=== PATIENT | female | born 1940 | race Caucasian/White ===

== ENCOUNTER 2020-07-23 09:33 | Outpatient (REF) | payer MEDICARE, OTHER, SELFPAY ==
[2020-07-23 10:14] LABS: MANUAL DIFF FLAG NO
[2020-07-23 10:15] LABS: Basophils Percent Auto 0.3 % (0-2); Eosinophils Absolute Auto 0.1 X10*3/uL (0.0-0.4); Eosinophils Percent Auto 2.2 % (0-4); Hematocrit 32.1 % (37-47); Hemoglobin 10.4 g/dl (12.0-16.0); Imm Gran Abs Auto 0.02 X10*3/uL (0.00-0.03); Imm Gran Pct Auto 0.3 % (0.0-0.4); Lymphocytes Absolute Auto 0.9 X10*3/uL (1.2-4.9); Lymphocytes Percent Auto 14.3 % (20-40); Mean Corpuscular HGB Conc 32.4 g/dl (31.0-35.0); Mean Corpuscular Hemoglobin 29.8 pg (27.0-33.0); Mean Platelet Volume 8.6 fL (9.4-12.3); Monocytes Absolute Auto 0.6 X10*3/uL (0.1-1.2); Monocytes Percent Auto 9.8 % (2-11); Neutrophils Absolute Auto 4.4 X10*3/uL (2.0-8.3); Neutrophils Percent Auto 73.1 % (45-73); Platelet Count 319 X10*3/uL (160-400); Red Blood Count 3.49 X10*6/uL (4.20-5.50); Red Cell Distribution Width 13.6 % (11.0-16.0)
[2020-07-23 10:48] LABS: Alanine Aminotransferase 12 U/L (0-31); Albumin Level 3.9 g/dL (3.5-5.0); Alkaline Phosphatase 64 U/L (39-117); Anion Gap 14 (12-20); Aspartate Amino Transferase 13 U/L (5-31); Bilirubin Total 0.7 mg/dL (0.0-1.0); Blood Urea Nitrogen 19 mg/dL (9-16); Calcium 8.6 mg/dL (8.4-10.2); Carbon Dioxide 23 mmol/L (22-29); Chloride 107 mmol/L (96-108); Cholesterol 102 mg/dL; Estimated Glomerular Filt Rate 59; Glucose Fasting 112 mg/dL (60-99); HDL Cholesterol 36 mg/dL; LDL Cholesterol Calculated 52 mg/dl; Potassium 4.9 mmol/l (3.3-5.1); Sodium 139 mmol/L (135-145); Total Protein 6.1 g/dL (6.5-8.0); Triglycerides 73 mg/dL
[2020-07-23 10:51] LABS: Glucose Urine UA NEG (NEG); Leukocyte Esterase Urine TRACE (NEG); Nitrite Urine NEG (NEG); PH 5.5 (5.0-8.0); Urine Blood NEG (NEG); Urine Ketones NEG (NEG); Urine Protein NEG (NEG-TRACE)
[2020-07-23 10:56] LABS: Appearance Urine CLEAR; Color Urine YELLOW
[2020-07-23 11:07] LABS: Folate 13.8 ng/mL (> or = 4.0); Vitamin B12 1368 pg/mL (200-900)
[2020-07-23 11:08] LABS: RBC Urine 0 /HPF (0); Renal Epithelial Cells Urine TRACE /LPF; Squamous Epithelial Cell Urine TRACE /LPF
[2020-07-23 11:17] LABS: Creatinine Urine 53.94 mg/dL; Microalbum/Creatinine Ratio Ur 9.2 ug/mg cr
== END 2020-07-23 09:34 | disposition home or self-care (01) ==
LOC: HO.10HDL 09:33
PROVIDERS: Visit Provider Internal Medicine
DX: E11.22 Type 2 diabetes mellitus with diabetic chronic kidney disease (principal); E11.42 Type 2 diabetes mellitus with diabetic polyneuropathy; I12.9 Hypertensive chronic kidney disease with stage 1 through stage 4 chronic kidney disease, or unspecified chronic kidney disease; E78.5 Hyperlipidemia, unspecified; N18.2 Chronic kidney disease, stage 2 (mild); D63.1 Anemia in chronic kidney disease; E87.6 Hypokalemia; I25.10 Atherosclerotic heart disease of native coronary artery without angina pectoris; I65.29 Occlusion and stenosis of unspecified carotid artery; E55.9 Vitamin D deficiency, unspecified; K21.9 Gastro-esophageal reflux disease without esophagitis; E66.3 Overweight
CPT/HCPCS: 36415; 80053; 80061; 81001; 82043; 82607; 82746; 85025; 87086

== ENCOUNTER 2020-10-19 09:23 | Outpatient (REF) | payer MEDICARE, OTHER, SELFPAY ==
[2020-10-19 10:03] LABS: MANUAL DIFF FLAG NO
[2020-10-19 10:12] LABS: Basophils Percent Auto 0.6 % (0-2); Eosinophils Absolute Auto 0.2 X10*3/uL (0.0-0.4); Eosinophils Percent Auto 2.4 % (0-4); Hemoglobin 11.4 g/dl (12.0-16.0); Imm Gran Abs Auto 0.01 X10*3/uL (0.00-0.03); Imm Gran Pct Auto 0.1 % (0.0-0.4); Lymphocytes Absolute Auto 0.8 X10*3/uL (1.2-4.9); Lymphocytes Percent Auto 11.8 % (20-40); Mean Corpuscular HGB Conc 31.7 g/dl (31.0-35.0); Mean Corpuscular Hemoglobin 28.6 pg (27.0-33.0); Mean Corpuscular Volume 90.2 fL (80-98); Mean Platelet Volume 8.7 fL (9.4-12.3); Monocytes Absolute Auto 0.7 X10*3/uL (0.1-1.2); Monocytes Percent Auto 9.2 % (2-11); Neutrophils Absolute Auto 5.4 X10*3/uL (2.0-8.3); Neutrophils Percent Auto 75.9 % (45-73); Platelet Count 352 X10*3/uL (160-400); Red Blood Count 3.99 X10*6/uL (4.20-5.50); Red Cell Distribution Width 13.3 % (11.0-16.0); White Blood Count 7.1 X10*3/uL (4.8-10.8)
[2020-10-19 10:29] LABS: Glucose Urine UA NEG (NEG); Leukocyte Esterase Urine 2+ (NEG); Nitrite Urine NEG (NEG); Specific Gravity - Urine 1.025 (1.005-1.025); UACC Culture Trigger YES; Urine Blood NEG (NEG); Urine Ketones NEG (NEG); Urine Protein NEG (NEG-TRACE)
[2020-10-19 10:31] LABS: Appearance Urine CLEAR; Color Urine YELLOW
[2020-10-19 10:35] LABS: Estimated Average Glucose 140 mg/dL; Hemoglobin A1c % 6.5 %
[2020-10-19 10:38] LABS: Alanine Aminotransferase 11 U/L (0-31); Alkaline Phosphatase 79 U/L (39-117); Anion Gap 14 (12-20); Aspartate Amino Transferase 12 U/L (5-31); Bilirubin Total 0.6 mg/dL (0.0-1.0); Blood Urea Nitrogen 21 mg/dL (9-16); Calcium 8.9 mg/dL (8.4-10.2); Carbon Dioxide 26 mmol/L (22-29); Chloride 104 mmol/L (96-108); Cholesterol 120 mg/dL; Estimated Glomerular Filt Rate 54; Glucose Fasting 204 mg/dL (60-99); HDL Cholesterol 37 mg/dL; Iron 79 mcg/dL (30-160); LDL Cholesterol Calculated 69 mg/dl; Percent Iron Saturation 19 % (15-50); Potassium 4.7 mmol/L (3.3-5.1); Sodium 139 mmol/L (135-145); Total Iron Binding Capacity 413 mcg/dL (228-428); Total Protein 6.3 g/dL (6.5-8.0); Triglycerides 73 mg/dL; Unsaturated Iron Binding 334 ug/dL
[2020-10-19 10:55] LABS: Bacteria Urine TRACE /LPF; RBC Urine 0 /HPF (0); Squamous Epithelial Cell Urine 1+ /LPF
[2020-10-19 11:09] LABS: TSH reflex Free T4 2.36 uIU/mL (0.32-4.0); Vitamin D 25-OH Total 17.8 ng/mL (>30)
[2020-10-19 11:38] LABS: Folate 11.2 ng/mL (> or = 4.0); Vitamin B12 797 pg/mL (200-900)
== END 2020-10-19 09:24 | disposition home or self-care (01) ==
LOC: HO.10HDL 09:23
PROVIDERS: Visit Provider Internal Medicine
DX: E11.42 Type 2 diabetes mellitus with diabetic polyneuropathy (principal); I65.29 Occlusion and stenosis of unspecified carotid artery; I25.10 Atherosclerotic heart disease of native coronary artery without angina pectoris; I12.9 Hypertensive chronic kidney disease with stage 1 through stage 4 chronic kidney disease, or unspecified chronic kidney disease; N18.2 Chronic kidney disease, stage 2 (mild); E55.9 Vitamin D deficiency, unspecified; E66.3 Overweight; E78.00 Pure hypercholesterolemia, unspecified; K21.9 Gastro-esophageal reflux disease without esophagitis; E87.5 Hyperkalemia; D64.9 Anemia, unspecified; G57.11 Meralgia paresthetica, right lower limb
CPT/HCPCS: 36415; 80053; 80061; 81001; 81003; 82306; 82607; 82746; 83036; 83540; 84443; 85025; 87086

== ENCOUNTER 2021-01-25 08:19 | Outpatient (REF) | payer MEDICARE, OTHER, SELFPAY ==
[2021-01-25 09:35] LABS: MANUAL DIFF FLAG NO
[2021-01-25 09:48] LABS: Glucose Urine UA NEG (NEG); Leukocyte Esterase Urine 2+ (NEG); Nitrite Urine POS (NEG); PH 5.5 (5.0-8.0); Specific Gravity - Urine >= 1.030 (1.005-1.025); UACC Culture Trigger YES; Urine Blood NEG (NEG); Urine Ketones 5 MG/DL (NEG); Urine Protein 1+ MG/DL (NEG-TRACE)
[2021-01-25 09:49] LABS: Color Urine YELLOW
[2021-01-25 09:50] LABS: Appearance Urine CLOUDY
[2021-01-25 09:51] LABS: Basophils Percent Auto 0.4 % (0-2); Eosinophils Absolute Auto 0.2 X10*3/uL (0.0-0.4); Eosinophils Percent Auto 2.6 % (0-4); Hematocrit 35.2 % (37-47); Hemoglobin 11.2 g/dl (12.0-16.0); Imm Gran Abs Auto 0.03 X10*3/uL (0.00-0.03); Imm Gran Pct Auto 0.4 % (0.0-0.4); Lymphocytes Absolute Auto 0.8 X10*3/uL (1.2-4.9); Lymphocytes Percent Auto 10.9 % (20-40); Mean Corpuscular HGB Conc 31.8 g/dl (31.0-35.0); Mean Corpuscular Hemoglobin 29.2 pg (27.0-33.0); Mean Corpuscular Volume 91.9 fL (80-98); Mean Platelet Volume 8.8 fL (9.4-12.3); Monocytes Absolute Auto 0.7 X10*3/uL (0.1-1.2); Monocytes Percent Auto 8.7 % (2-11); Neutrophils Absolute Auto 5.9 X10*3/uL (2.0-8.3); Platelet Count 346 X10*3/uL (160-400); Red Blood Count 3.83 X10*6/uL (4.20-5.50); Red Cell Distribution Width 13.7 % (11.0-16.0); White Blood Count 7.7 X10*3/uL (4.8-10.8)
[2021-01-25 09:53] LABS: Estimated Average Glucose 134 mg/dL; Hemoglobin A1c % 6.3 %
[2021-01-25 10:00] LABS: Alanine Aminotransferase 11 U/L (0-31); Anion Gap 14 (12-20); Aspartate Amino Transferase 15 U/L (5-31); Bilirubin Total 0.8 mg/dL (0.0-1.0); Blood Urea Nitrogen 20 mg/dL (9-16); Calcium 9.3 mg/dL (8.4-10.2); Carbon Dioxide 24 mmol/L (22-29); Chloride 107 mmol/L (96-108); Cholesterol 111 mg/dL; Estimated Glomerular Filt Rate 54; Glucose Fasting 117 mg/dL (60-99); HDL Cholesterol 35 mg/dL; LDL Cholesterol Calculated 54 mg/dl; Potassium 5.1 mmol/L (3.3-5.1); Sodium 140 mmol/L (135-145); Total Protein 6.1 g/dL (6.5-8.0); Triglycerides 112 mg/dL
[2021-01-25 10:01] LABS: Alkaline Phosphatase 70 U/L (39-117)
[2021-01-25 10:07] LABS: Creatinine Urine 345.06 mg/dL; Microalbum/Creatinine Ratio Ur 10.7 ug/mg cr
[2021-01-25 10:08] LABS: Bacteria Urine 3+ /LPF; RBC Urine 0-2 /HPF (0); Squamous Epithelial Cell Urine 1+ /LPF; WBC Clumps Urine NOTED; WBC Urine 30-49 /HPF (0-4)
[2021-01-25 10:22] LABS: TSH reflex Free T4 2.17 uIU/mL (0.32-4.0); Vitamin D 25-OH Total 18.2 ng/mL (>30)
[2021-01-25 10:32] LABS: Folate 12.1 ng/mL (> or = 4.0); Vitamin B12 1438 pg/mL (200-900)
== END 2021-01-25 08:20 | disposition home or self-care (01) ==
LOC: HO.LAB 08:19
PROVIDERS: PCP Internal Medicine; Visit Provider Internal Medicine
DX: E78.00 Pure hypercholesterolemia, unspecified (principal); I25.10 Atherosclerotic heart disease of native coronary artery without angina pectoris; I65.22 Occlusion and stenosis of left carotid artery; E11.42 Type 2 diabetes mellitus with diabetic polyneuropathy; I12.9 Hypertensive chronic kidney disease with stage 1 through stage 4 chronic kidney disease, or unspecified chronic kidney disease; N18.2 Chronic kidney disease, stage 2 (mild); E11.22 Type 2 diabetes mellitus with diabetic chronic kidney disease; E55.9 Vitamin D deficiency, unspecified; D64.9 Anemia, unspecified; J30.9 Allergic rhinitis, unspecified; E87.5 Hyperkalemia; G57.11 Meralgia paresthetica, right lower limb; E66.3 Overweight
CPT/HCPCS: 36415; 80053; 80061; 81001; 81003; 82043; 82306; 82607; 82746; 83036; 84443; 85025; 87086

== ENCOUNTER 2021-04-28 08:44 | Outpatient (REF) | payer MEDICARE, OTHER, SELFPAY ==
[2021-04-28 10:18] LABS: MANUAL DIFF FLAG NO
[2021-04-28 10:21] LABS: Basophils Percent Auto 0.4 % (0-2); Eosinophils Absolute Auto 0.2 X10*3/uL (0.0-0.4); Eosinophils Percent Auto 2.8 % (0-4); Hematocrit 33.8 % (37-47); Hemoglobin 10.9 g/dl (12.0-16.0); Imm Gran Abs Auto 0.03 X10*3/uL (0.00-0.03); Imm Gran Pct Auto 0.4 % (0.0-0.4); Mean Corpuscular HGB Conc 32.2 g/dl (31.0-35.0); Mean Corpuscular Hemoglobin 29.9 pg (27.0-33.0); Mean Corpuscular Volume 92.9 fL (80-98); Mean Platelet Volume 8.8 fL (9.4-12.3); Monocytes Absolute Auto 0.7 X10*3/uL (0.1-1.2); Neutrophils Percent Auto 75.4 % (45-73); Platelet Count 333 X10*3/uL (160-400); Red Blood Count 3.64 X10*6/uL (4.20-5.50); Red Cell Distribution Width 14.1 % (11.0-16.0); White Blood Count 7.9 X10*3/uL (4.8-10.8)
[2021-04-28 10:49] LABS: Anion Gap 15 (12-20)
[2021-04-28 10:50] LABS: Alanine Aminotransferase 8 U/L (0-31); Albumin Level 3.8 g/dL (3.5-5.0); Alkaline Phosphatase 65 U/L (39-117); Aspartate Amino Transferase 13 U/L (5-31); Bilirubin Total 0.6 mg/dL (0.0-1.0); Blood Urea Nitrogen 15 mg/dL (9-16); Carbon Dioxide 24 mmol/L (22-29); Chloride 107 mmol/L (96-108); Cholesterol 98 mg/dL; Estimated Glomerular Filt Rate 57; Glucose Fasting 119 mg/dL (60-99); HDL Cholesterol 31 mg/dL; LDL Cholesterol Calculated 45 mg/dl; Potassium 4.7 mmol/L (3.3-5.1); Sodium 141 mmol/L (135-145); Total Protein 5.8 g/dL (6.5-8.0); Triglycerides 113 mg/dL
[2021-04-28 10:51] LABS: Appearance Urine CLOUDY; Color Urine YELLOW; Glucose Urine UA NEG (NEG); Leukocyte Esterase Urine 3+ (NEG); Nitrite Urine POS (NEG); Specific Gravity - Urine 1.015 (1.005-1.025); UACC Culture Trigger YES; Urine Blood 1+ (NEG); Urine Ketones NEG (NEG); Urine Protein TRACE MG/DL (NEG-TRACE)
[2021-04-28 11:05] LABS: Bacteria Urine 3+ /LPF; Mucus Urine TRACE /LPF; Squamous Epithelial Cell Urine TRACE /LPF; WBC Urine TNTC /HPF (0-4)
[2021-04-28 11:08] LABS: Estimated Average Glucose 128 mg/dL; Hemoglobin A1c % 6.1 %
[2021-04-28 11:09] LABS: TSH reflex Free T4 2.33 uIU/mL (0.32-4.0)
[2021-04-28 11:51] LABS: Creatinine Urine 74.51 mg/dL; Microalbum/Creatinine Ratio Ur 99.3 ug/mg cr
== END 2021-04-28 08:45 | disposition home or self-care (01) ==
LOC: HO.10HDL 08:44
PROVIDERS: Visit Provider Internal Medicine
DX: I25.10 Atherosclerotic heart disease of native coronary artery without angina pectoris (principal); K21.9 Gastro-esophageal reflux disease without esophagitis; I65.22 Occlusion and stenosis of left carotid artery; I12.9 Hypertensive chronic kidney disease with stage 1 through stage 4 chronic kidney disease, or unspecified chronic kidney disease; E11.22 Type 2 diabetes mellitus with diabetic chronic kidney disease; E11.42 Type 2 diabetes mellitus with diabetic polyneuropathy; N18.2 Chronic kidney disease, stage 2 (mild); E55.9 Vitamin D deficiency, unspecified; E66.3 Overweight; E78.00 Pure hypercholesterolemia, unspecified
CPT/HCPCS: 36415; 80053; 80061; 81001; 82043; 82306; 83036; 84443; 85025; 87086; 87088; 87186

== ENCOUNTER 2021-05-13 08:20 | Outpatient (REF) | payer MEDICARE, OTHER, SELFPAY ==
[2021-05-13 10:23] LABS: MANUAL DIFF FLAG NO
[2021-05-13 10:28] LABS: Basophils Percent Auto 0.4 % (0-2); Eosinophils Absolute Auto 0.2 X10*3/uL (0.0-0.4); Eosinophils Percent Auto 3.3 % (0-4); Hematocrit 33.8 % (37-47); Hemoglobin 10.8 g/dl (12.0-16.0); Imm Gran Abs Auto 0.02 X10*3/uL (0.00-0.03); Imm Gran Pct Auto 0.3 % (0.0-0.4); Lymphocytes Percent Auto 14.8 % (20-40); Mean Corpuscular Hemoglobin 29.4 pg (27.0-33.0); Mean Corpuscular Volume 92.1 fL (80-98); Mean Platelet Volume 8.7 fL (9.4-12.3); Monocytes Absolute Auto 0.7 X10*3/uL (0.1-1.2); Monocytes Percent Auto 10.4 % (2-11); Neutrophils Absolute Auto 4.8 X10*3/uL (2.0-8.3); Neutrophils Percent Auto 70.8 % (45-73); Platelet Count 343 X10*3/uL (160-400); Red Blood Count 3.67 X10*6/uL (4.20-5.50); Red Cell Distribution Width 13.4 % (11.0-16.0); White Blood Count 6.7 X10*3/uL (4.8-10.8)
[2021-05-13 10:34] LABS: INTERNATIONAL NORM RATIO 0.9 (0.9-1.1); Prothrombin Time 10.6 SEC (9.9-13.0)
[2021-05-13 11:09] LABS: Anion Gap 14 (12-20); Blood Urea Nitrogen 20 mg/dL (9-16); Calcium 9.3 mg/dL (8.4-10.2); Carbon Dioxide 20 mmol/L (22-29); Chloride 104 mmol/L (96-108); Cholesterol 96 mg/dL; Estimated Glomerular Filt Rate 39; Glucose Random 138 mg/dL (60-115); HDL Cholesterol 32 mg/dL; LDL Cholesterol Calculated 45 mg/dl; Potassium 6.1 mmol/L (3.3-5.1); Sodium 132 mmol/L (135-145); Triglycerides 98 mg/dL
[2021-05-13 14:00] LABS: Anion Gap 14 (12-20); Blood Urea Nitrogen 19 mg/dL (9-16); Calcium 9.4 mg/dL (8.4-10.2); Carbon Dioxide 21 mmol/L (22-29); Chloride 105 mmol/L (96-108); Estimated Glomerular Filt Rate 42; Glucose Random 113 mg/dL (60-115); Potassium 6.6 mmol/L (3.3-5.1); Sodium 133 mmol/L (135-145)
== END 2021-05-13 08:21 | disposition home or self-care (01) ==
LOC: HO.10HDL 08:20
PROVIDERS: Visit Provider Internal Medicine Cardiovascular Disease
DX: I25.119 Atherosclerotic heart disease of native coronary artery with unspecified angina pectoris (principal); I73.9 Peripheral vascular disease, unspecified; R06.02 Shortness of breath
CPT/HCPCS: 36415; 80048; 80061; 85025; 85610

== ENCOUNTER 2021-09-14 08:26 | Outpatient (REF) | payer MEDICARE, OTHER, SELFPAY ==
[2021-09-14 10:43] LABS: MANUAL DIFF FLAG NO
[2021-09-14 10:49] LABS: Basophils Percent Auto 0.6 % (0-2); Eosinophils Absolute Auto 0.2 X10*3/uL (0.0-0.4); Hematocrit 32.9 % (37.0-47.0); Imm Gran Abs Auto 0.01 X10*3/uL (0.00-0.03); Imm Gran Pct Auto 0.1 % (0.0-0.4); Lymphocytes Percent Auto 13.5 % (20-40); Mean Corpuscular HGB Conc 30.4 g/dl (31.0-35.0); Mean Corpuscular Hemoglobin 27.3 pg (27.0-33.0); Mean Corpuscular Volume 89.9 fL (80.0-98.0); Mean Platelet Volume 8.5 fL (9.4-12.3); Monocytes Absolute Auto 0.8 X10*3/uL (0.1-1.2); Monocytes Percent Auto 11.4 % (2-11); Neutrophils Absolute Auto 5.1 x10*3/uL (2.0-8.3); Neutrophils Percent Auto 71.4 % (45-73); Platelet Count 416 X10*3/uL (160-400); Red Blood Count 3.66 X10*6/uL (4.20-5.50); Red Cell Distribution Width 13.5 % (11.0-16.0); White Blood Count 7.1 X10*3/uL (4.8-10.8)
[2021-09-14 10:58] LABS: Appearance Urine HAZY; Color Urine YELLOW; Glucose Urine UA NEG (NEG); Leukocyte Esterase Urine 2+ (NEG); Nitrite Urine NEG (NEG); Specific Gravity - Urine >= 1.030 (1.005-1.025); UACC Culture Trigger YES; Urine Blood NEG (NEG); Urine Ketones NEG (NEG); Urine Protein NEG (NEG-TRACE)
[2021-09-14 11:00] LABS: Estimated Average Glucose 103 mg/dL; Hemoglobin A1c % 5.2 %
[2021-09-14 11:19] LABS: Bacteria Urine 2+ /LPF; RBC Urine 0 /HPF (0); Squamous Epithelial Cell Urine 2+ /LPF
[2021-09-14 11:20] LABS: Mucus Urine 1+ /LPF
[2021-09-14 11:50] LABS: Alanine Aminotransferase 11 U/L (0-31); Albumin Level 3.7 g/dL (3.5-5.0); Alkaline Phosphatase 69 U/L (39-117); Anion Gap 13 (12-20); Aspartate Amino Transferase 15 U/L (5-31); Bilirubin Total 0.3 mg/dL (0.0-1.0); Blood Urea Nitrogen 13 mg/dL (9-16); Calcium 8.8 mg/dL (8.4-10.2); Carbon Dioxide 26 mmol/L (22-29); Chloride 107 mmol/L (96-108); Cholesterol 105 mg/dL; Estimated Glomerular Filt Rate > 60; Glucose Fasting 128 mg/dL (60-99); HDL Cholesterol 33 mg/dL; LDL Cholesterol Calculated 51 mg/dl; Sodium 142 mmol/L (135-145); Total Protein 5.9 g/dL (6.5-8.0); Triglycerides 108 mg/dL
[2021-09-14 11:53] LABS: TSH reflex Free T4 2.85 uIU/mL (0.32-4.0)
[2021-09-14 12:47] LABS: Creatinine Urine 61.72 mg/dL; Microalbum/Creatinine Ratio Ur 38.8 ug/mg cr
== END 2021-09-14 08:27 | disposition home or self-care (01) ==
LOC: HO.10HDL 08:26
PROVIDERS: Visit Provider Internal Medicine
DX: I10 Essential (primary) hypertension (principal); E78.00 Pure hypercholesterolemia, unspecified; E11.9 Type 2 diabetes mellitus without complications; E55.9 Vitamin D deficiency, unspecified; D64.9 Anemia, unspecified
CPT/HCPCS: 36415; 80053; 80061; 81001; 82043; 82306; 83036; 84443; 85025; 87086; 87088; 87186

== ENCOUNTER 2021-10-14 11:48 | Outpatient (REF) | payer MEDICARE, OTHER, SELFPAY | END 2021-10-14 11:49 | disposition home or self-care (01) | LOC: HO.MDS 11:48 | PROVIDERS: Visit Provider Internal Medicine Medical Oncology | DX: D50.9 Iron deficiency anemia, unspecified (principal) | CPT/HCPCS: 96365; J2916 ==

== ENCOUNTER 2021-10-26 11:43 | Outpatient (REF) | payer MEDICARE, OTHER, SELFPAY | END 2021-10-26 11:44 | disposition home or self-care (01) | LOC: HO.MDS 11:43 | PROVIDERS: Visit Provider Internal Medicine Medical Oncology | DX: D50.9 Iron deficiency anemia, unspecified (principal) | CPT/HCPCS: 96365; J2916 ==

== ENCOUNTER 2021-11-04 11:02 | Outpatient (REF) | payer MEDICARE, OTHER, SELFPAY | END 2021-11-04 11:03 | disposition home or self-care (01) | LOC: HO.MDS 11:02 | PROVIDERS: Visit Provider Internal Medicine Medical Oncology | DX: D50.9 Iron deficiency anemia, unspecified (principal) | CPT/HCPCS: 96365; J2916 ==

== ENCOUNTER 2021-11-10 10:28 | Outpatient (REF) | payer MEDICARE, OTHER, SELFPAY ==
[2021-11-10 11:01] LABS: MANUAL DIFF FLAG NO
[2021-11-10 11:06] LABS: Basophils Percent Auto 0.4 % (0-2); Eosinophils Absolute Auto 0.2 X10*3/uL (0.0-0.4); Eosinophils Percent Auto 2.2 % (0-4); Hematocrit 34.8 % (37.0-47.0); Hemoglobin 10.6 g/dl (12.0-16.0); Imm Gran Abs Auto 0.02 X10*3/uL (0.00-0.03); Imm Gran Pct Auto 0.3 % (0.0-0.4); Lymphocytes Absolute Auto 0.8 X10*3/uL (1.2-4.9); Lymphocytes Percent Auto 10.7 % (20-40); Mean Corpuscular HGB Conc 30.5 g/dl (31.0-35.0); Mean Corpuscular Hemoglobin 27.3 pg (27.0-33.0); Mean Corpuscular Volume 89.7 fL (80.0-98.0); Mean Platelet Volume 8.5 fL (9.4-12.3); Monocytes Absolute Auto 0.7 X10*3/uL (0.1-1.2); Monocytes Percent Auto 9.6 % (2-11); Neutrophils Absolute Auto 5.6 x10*3/uL (2.0-8.3); Neutrophils Percent Auto 76.8 % (45-73); Platelet Count 291 X10*3/uL (160-400); Red Blood Count 3.88 X10*6/uL (4.20-5.50); Red Cell Distribution Width 16.4 % (11.0-16.0); White Blood Count 7.3 X10*3/uL (4.8-10.8)
== END 2021-11-10 10:29 | disposition home or self-care (01) ==
LOC: HO.MDS 10:28
PROVIDERS: Visit Provider Internal Medicine Medical Oncology
DX: D50.9 Iron deficiency anemia, unspecified (principal)
CPT/HCPCS: 36415; 85025; 96365; J2916

== ENCOUNTER 2021-11-17 11:49 | Outpatient (REF) | payer MEDICARE, OTHER, SELFPAY | END 2021-11-17 11:50 | disposition home or self-care (01) | LOC: HO.MDS 11:49 | PROVIDERS: Visit Provider Internal Medicine Medical Oncology | DX: D50.9 Iron deficiency anemia, unspecified (principal) | CPT/HCPCS: 96365; 96413; 96415; J2916 ==

== ENCOUNTER 2021-11-24 09:53 | Outpatient (REF) | payer MEDICARE, OTHER, SELFPAY | END 2021-11-24 09:54 | disposition home or self-care (01) | LOC: HO.MDS 09:53 | PROVIDERS: Visit Provider Internal Medicine Medical Oncology | DX: D50.9 Iron deficiency anemia, unspecified (principal) | CPT/HCPCS: 96365; J2916 ==

== ENCOUNTER 2021-12-19 07:46 | Outpatient (REF) | payer MEDICARE, OTHER, SELFPAY ==
[2021-12-19 10:17] LABS: MANUAL DIFF FLAG NO
[2021-12-19 10:29] LABS: Basophils Percent Auto 0.8 % (0-2); Eosinophils Absolute Auto 0.2 X10*3/uL (0.0-0.4); Eosinophils Percent Auto 4.3 % (0-4); Hematocrit 31.1 % (37.0-47.0); Hemoglobin 9.6 g/dl (12.0-16.0); Imm Gran Abs Auto 0.01 X10*3/uL (0.00-0.03); Imm Gran Pct Auto 0.2 % (0.0-0.4); Lymphocytes Absolute Auto 0.8 X10*3/uL (1.2-4.9); Lymphocytes Percent Auto 16.5 % (20-40); Mean Corpuscular HGB Conc 30.9 g/dl (31.0-35.0); Mean Corpuscular Hemoglobin 29.1 pg (27.0-33.0); Mean Corpuscular Volume 94.2 fL (80.0-98.0); Mean Platelet Volume 8.7 fL (9.4-12.3); Monocytes Absolute Auto 0.5 X10*3/uL (0.1-1.2); Monocytes Percent Auto 9.7 % (2-11); Neutrophils Absolute Auto 3.3 x10*3/uL (2.0-8.3); Neutrophils Percent Auto 68.5 % (45-73); Platelet Count 374 X10*3/uL (160-400); Red Cell Distribution Width 16.6 % (11.0-16.0); White Blood Count 4.8 X10*3/uL (4.8-10.8)
[2021-12-19 10:40] LABS: Estimated Average Glucose 108 mg/dL; Hemoglobin A1c % 5.4 %
[2021-12-19 11:01] LABS: Appearance Urine CLEAR; Color Urine YELLOW; Glucose Urine UA NEG (NEG); Leukocyte Esterase Urine 3+ (NEG); Nitrite Urine NEG (NEG); Specific Gravity - Urine 1.015 (1.005-1.025); UACC Culture Trigger YES; Urine Blood NEG (NEG); Urine Ketones NEG (NEG); Urine Protein NEG (NEG-TRACE)
[2021-12-19 11:06] LABS: Alanine Aminotransferase 9 U/L (0-31); Albumin Level 3.5 g/dL (3.5-5.0); Alkaline Phosphatase 73 U/L (39-117); Anion Gap 12 (12-20); Aspartate Amino Transferase 12 U/L (5-31); Bilirubin Total 0.4 mg/dL (0.0-1.0); Blood Urea Nitrogen 16 mg/dL (9-16); Calcium 8.7 mg/dL (8.4-10.2); Carbon Dioxide 26 mmol/L (22-29); Chloride 107 mmol/L (96-108); Cholesterol 138 mg/dL; Estimated Glomerular Filt Rate > 60; Glucose Fasting 109 mg/dL (60-99); HDL Cholesterol 38 mg/dL; Iron 57 mcg/dL (30-160); LDL Cholesterol Calculated 86 mg/dl; Percent Iron Saturation 20 % (15-50); Potassium 4.7 mmol/L (3.3-5.1); Sodium 140 mmol/L (135-145); Total Iron Binding Capacity 281 mcg/dL (228-428); Total Protein 5.5 g/dL (6.5-8.0); Triglycerides 71 mg/dL; Unsaturated Iron Binding 224 ug/dL
[2021-12-19 11:09] LABS: TSH reflex Free T4 3.14 uIU/mL (0.32-4.0); Vitamin D 25-OH Total 14.2 ng/mL (>30)
[2021-12-19 11:10] LABS: Creatinine Urine 67.41 mg/dL; Microalbum/Creatinine Ratio Ur 23.7 ug/mg cr
[2021-12-19 11:26] LABS: Squamous Epithelial Cell Urine 2+ /LPF
[2021-12-19 11:27] LABS: Bacteria Urine 1+ /LPF; Renal Epithelial Cells Urine TRACE /LPF
[2021-12-19 11:28] LABS: RBC Urine 0 /HPF (0)
[2021-12-19 11:45] LABS: Folate 6.6 ng/mL (> or = 4.0); Vitamin B12 1264 pg/mL (200-900)
== END 2021-12-19 07:47 | disposition home or self-care (01) ==
LOC: HO.10HDL 07:46
PROVIDERS: Visit Provider Internal Medicine
DX: E55.9 Vitamin D deficiency, unspecified (principal); E53.8 Deficiency of other specified B group vitamins; E11.9 Type 2 diabetes mellitus without complications; I10 Essential (primary) hypertension; D50.9 Iron deficiency anemia, unspecified; E78.00 Pure hypercholesterolemia, unspecified
CPT/HCPCS: 36415; 80053; 80061; 81001; 81003; 82043; 82306; 82607; 82746; 83036; 83540; 84443; 85025; 87086

== ENCOUNTER → 2022-01-11 12:00 | Outpatient (BNVA) | payer MEDICARE, OTHER, SELFPAY | PROVIDERS: PCP Internal Medicine; Visit Provider Nurse Practitioner Family | DX: D64.9 Anemia, unspecified (principal); K21.9 Gastro-esophageal reflux disease without esophagitis; Z95.1 Presence of aortocoronary bypass graft; Z79.01 Long term (current) use of anticoagulants | CPT/HCPCS: 99202 ==

== ENCOUNTER → 2022-03-08 11:47 | Outpatient (BNVA) | payer MEDICARE, OTHER, SELFPAY | PROVIDERS: PCP Internal Medicine; Visit Provider Nurse Practitioner Family | DX: K21.9 Gastro-esophageal reflux disease without esophagitis (principal); K92.2 Gastrointestinal hemorrhage, unspecified; D64.9 Anemia, unspecified | CPT/HCPCS: 99212 ==

== ENCOUNTER 2022-03-14 10:26 | Inpatient (IN) | payer MEDICARE, OTHER, SELFPAY ==
[2022-03-14 10:41] VITALS: BP 139/52; PULSE 70; O2SAT 97
[2022-03-14 10:43] VITALS: BP 142/42; PULSE 70; RESP 18; TEMP 36.7; O2SAT 98; BMI 25.6
--- NOTE | 2022-03-14 10:45 | ECG_ITS ---
Test Reason : dizzy Blood Pressure : / mmHG Vent. Rate : 072 BPM Atrial Rate : 072 BPM P-R Int : 154 ms QRS Dur : 082 ms QT Int : 396 ms P-R-T Axes : 067 030 103 degrees QTc Int : 433 ms Normal sinus rhythm Nonspecific ST and T wave abnormality Abnormal ECG No previous ECGs available Referred By: Generic ED Physician Electronically Signed By:MOHSEN ARNOLD
[2022-03-14 10:59] LABS: MANUAL DIFF FLAG NO
[2022-03-14 11:01] LABS: Basophils Percent Auto 0.2 % (0-2); Eosinophils Absolute Auto 0.1 X10*3/uL (0.0-0.4); Eosinophils Percent Auto 0.7 % (0-4); Hematocrit 35.4 % (37.0-47.0); Hemoglobin 11.6 g/dl (12.0-16.0); Imm Gran Abs Auto 0.03 X10*3/uL (0.00-0.03); Imm Gran Pct Auto 0.3 % (0.0-0.4); Lymphocytes Absolute Auto 0.7 X10*3/uL (1.2-4.9); Lymphocytes Percent Auto 8.3 % (20-40); Mean Corpuscular HGB Conc 32.8 g/dl (31.0-35.0); Mean Corpuscular Hemoglobin 29.1 pg (27.0-33.0); Mean Corpuscular Volume 88.7 fL (80.0-98.0); Mean Platelet Volume 8.4 fL (9.4-12.3); Monocytes Absolute Auto 0.5 X10*3/uL (0.1-1.2); Monocytes Percent Auto 5.2 % (2-11); Neutrophils Absolute Auto 7.5 x10*3/uL (2.0-8.3); Neutrophils Percent Auto 85.3 % (45-73); Platelet Count 308 X10*3/uL (160-400); Red Blood Count 3.99 X10*6/uL (4.20-5.50); Red Cell Distribution Width 13.1 % (11.0-16.0); White Blood Count 8.8 X10*3/uL (4.8-10.8)
[2022-03-14 11:16] LABS: Anion Gap 14 (12-20); Blood Urea Nitrogen 22 mg/dL (9-16); Carbon Dioxide 24 mmol/L (22-29); Chloride 107 mmol/L (96-108); Estimated Glomerular Filt Rate 49; Glucose Random 248 mg/dL (60-115); Potassium 4.6 mmol/L (3.3-5.1); Sodium 140 mmol/L (135-145)
[2022-03-14 11:18] LABS: Troponin-I High Sensitivity 6.2 ng/L (<3.5-17.0)
--- NOTE | 2022-03-14 15:01 | ED_ITS ---
HPI - General Adult General Chief complaint: Weakness Stated complaint: DIZZY,WEAK,NAUSEA X'S 7 DAYS FROM URGENT CARE Time Seen by Provider: 03/14/22 14:27 Source: patient and family Mode of arrival: ambulatory Limitations: no limitations History of Present Illness HPI narrative: Patient comes to the emergency room complaining of nausea, weakness for 1 week. Patient complaining of vomiting, no diarrhea. Patient states that all of her symptoms started 7 days ago, she has been seen by urgent care. Patient comp laining of mild bilateral lower quadrant pain, denies any blood in the stool or in the vomit. Related Data Home Medications Medication Instructions Recorded Confirmed atorvastatin 80 mg tablet 80 mg PO DAILY 07/26/20 02/24/22 latanoprost 0.005 % eye drops 1 drp ophthalmic (eye) BEDTIME 07/26/20 02/24/22 nitroglycerin 0.4 mg sublingual 0.4 mg sublingual DAILY PRN Angina 07/26/20 02/24/22 tablet Vitamin B-12 3,000 mg sublingual DAILY 09/26/21 02/24/22 nitrofurantoin macrocrystal 100 mg 100 mg PO DAILY for UTI prophylaxis 11/25/21 02/24/22 capsule (Macrodantin) Previous Rx's Medication Instructions Recorded blood sugar diagnostic (FreeStyle 1 strip miscellaneous TID #300 09/19/20 Lite Strips) strips clopidogrel 75 mg tablet 75 mg PO DAILY 90 days #90 tabs 01/27/21 glyburide 2.5 mg tablet 2.5 mg PO BID 90 days #180 tabs 01/27/21 albuterol sulfate 2.5 mg/3 mL 2.5 mg (3 mL) inhalation QID PRN 06/18/21 (0.083 %) solution for nebulization shortness of breath or wheezing #180 mL albuterol sulfate 90 mcg/actuation 2 puff inhalation Q6H PRN 07/01/21 aerosol inhaler shortness of breath or wheezing 30 days #8.5 grams triamcinolone acetonide 0.1 % 1 appl topical BID #60 mL 09/19/21 lotion ondansetron 4 mg disintegrating 4 mg PO Q8H PRN nausea and 12/21/21 tablet vomiting 15 days #45 tabs metformin 1,000 mg tablet 1,000 mg PO BID #180 tabs 12/22/21 loratadine 10 mg tablet 10 mg PO DAILY PRN allergy 03/03/22 symptoms 90 days #90 tabs pantoprazole 40 mg tablet,delayed 40 mg PO BID #60 tabs 03/08/22 release sucralfate 100 mg/mL oral 10 ml PO BEDTIME #400 mL 03/08/22 suspension metoprolol succinate 50 mg 50 mg PO DAILY #90 tabs 03/09/22 tablet,extended release 24 hr Allergies Allergy/AdvReac Type Severity Reaction Status Date / Time doxycycline Allergy Mild Vomiting Verified 03/08/22 11:55 levetiracetam [From [facility]] Allergy Mild Vomiting Verified 03/08/22 11:55 amoxicillin Allergy Unknown rash Verified 03/08/22 11:55 Penicillins Allergy Unknown rash Verified 03/08/22 11:55 prednisone Allergy Unknown rash Verified 03/08/22 11:55 omeprazole AdvReac Unknown worsening Verified 03/08/22 11:55 heartburn ranitidine AdvReac Unknown worsening Verified 03/08/22 11:55 heartburn, abdominal pain (ONLY to generic) Review of Systems Review of Systems: Constitutional : No Weight loss, No Fever, No Chills, No Night Sweats, complaining of fatigue, weakness, weakness, No Malaise ENT/Mouth : No Hearing loss, No Ear Pain, No Nasal Congestion, No Sinus Pain, No Hoarseness, No sore throat, No Rhinorrhea, No Swallowing Difficulty Eyes: No Eye Pain, No Swelling, No Redness, No Foreign Body, No Discharge, No Vision Changes Cardiovascular : No Chest Pain, No SOB, No Dyspnea on Exertion, No Orthopnea, No Edema, No Palpitations Respiratory : No Cough, No Sputum, No Wheezing, No Smoke Exposure, No Dyspnea Gastrointestinal : Complaining of nausea and vomiting, No Diarrhea, No Constipation, No abdominal Pain, No Hematochezia, No Melena Genitourinary : no irregular bleeding, No Dysuria, No Urinary Frequency, No Hematuria, No Urinary Incontinence, No Urgency, No Flank Pain, No Urinary Flow Changes, No Hesitancy Musculoskeletal : No joint pain, No Myalgias, No Joint Swelling Skin : No Skin Lesions, No rash Neuro : No Weakness, No Numbness, No Paresthesias, No Loss of Consciousness, No Dizziness, No Headache Psych : No Anxiety/Panic, No Depression, No SI/HI/AH/VH, No Social Issues, Heme/Lymph: No Bruising, No Bleeding,No Lymphadenopathy Endocrine : No Polyuria, No Polydipsia, No Temperature Intolerance [facility] Past Medical History Medical History Allergic rhinitis Anemia Asthma Benign essential hypertension Carotid atherosclerosis Chronic kidney disease (CKD), stage II (mild) Coronary artery disease (~06/09/21) Diabetic polyneuropathy associated with type 2 diabetes mellitus GERD without esophagitis Hearing impairment Hyperkalemia Meralgia paresthetica of right side Orbital fracture Overweight (BMI 25.0-29.9) Peripheral vascular disease Pure hypercholesterolemia Recurrent urinary tract infection Seizure Type 2 diabetes mellitus with diabetic polyneuropathy Upper GI bleeding Vitamin D deficiency Surgical History History of cardiac catheterization History of endoscopy History of laparoscopic cholecystectomy History of left-sided carotid endarterectomy History of right-sided carotid endarterectomy S/P CABG x 4 (~06/09/21) S/P LASIK surgery Family History Family History Father CVD (cardiovascular disease) Mother Stroke Brother CVD (cardiovascular disease) Esophageal cancer Social History Social History Household Members: Family and Children Housing: House Are you a primary clinical care leader to a significant other at home: No Do you presently have visiting nurse or other home services: No Alcohol intake: current Alcohol intake frequency: holidays/special occasions only Alcohol type: wine Patient Tobacco Use Status: Former Tobacco user Tobacco use type: Cigarette Second Hand Smoke Exposure: Yes Advance Directives: Yes Advance Directives on File: Yes Advance Directives Date on File: 01/11/22 service: No Current occupational status: retired 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 Oriented X3. No acute distress. Eyes: Pupils equal, round and reactive to light. ENT: Pharynx normal. Neck: Normal inspection. Neck supple. No lymph nodes noted. No crepitus CVS: Normal heart rate and rhythm. Pulses normal. Normal S1 and S2 Respiratory: No respiratory distress. Breath sounds normal. No Wheezing. No rales Abdomen: Soft and nontender. No rigidity. No distention. Skin: Skin warm and dry. Normal skin color. Normal skin turgor. Extremities: No lower extremity edema. No Lacerations. No Rash Neuro: Oriented X 3. No motor deficit. No sensory deficit. Moving all extrem ities. No slurred speech. CN 2 through 12 grossly intact Psych: calm, cooperative, normal affect Course Course Course Narrative: I discussed the labs with the patient, patient does have a UTI. Patient is usually able to walk by herself but now she needs 2 people assistance to even get up to the bathroom. Patient was given the 1st dose of ceftriaxone in the emergency room. I discussed the patient with Dr. Adkins, patient being admitted. Patient does not have any fever, blood pressure, heart rate within normal limits. Sepsis is not suspected at this time. Lactic acid and blood cultures are pending. Medical Decision Making Lab Data Result diagrams: 03/14/22 10:54 03/14/22 10:54 Labs: Lab Results 03/14/22 03/14/22 03/14/22 Range/Units 10:54 10:54 10:54 WBC 8.8 (4.8-10.8) X10*3/uL RBC 3.99 L (4.20-5.50) X10*6/uL Hgb 11.6 L (12.0-16.0) g/dl Hct 35.4 L (37.0-47.0) % MCV 88.7 (80.0-98.0) fL MCH 29.1 (27.0-33.0) pg MCHC 32.8 (31.0-35.0) g/dl RDW 13.1 (11.0-16.0) % Plt Count 308 (160-400) X10*3/uL MPV 8.4 L (9.4-12.3) fL Immature Gran % (Auto) 0.3 (0.0-0.4) % Neut % (Auto) 85.3 H (45-73) % Lymph % (Auto) 8.3 L (20-40) % [place] % (Auto) 5.2 (2-11) % Eos % (Auto) 0.7 (0-4) % Baso % (Auto) 0.2 (0-2) % Lymph # (Auto) 0.7 L (1.2-4.9) X10*3/uL [place] # (Auto) 0.5 (0.1-1.2) X10*3/uL Eos # (Auto) 0.1 (0.0-0.4) X10*3/uL Baso # (Auto) 0.0 (0.0-0.2) X10*3/uL Abs Immat Gran (auto) 0.03 (0.00-0.03) X10*3/uL Absolute Neuts (auto) 7.5 (2.0-8.3) x10*3/uL Absolute Nucleated RBC 0.000 (0.0-0.012) X10*3/uL Nucleated RBC % (auto) 0.0 (0.0-0.2) /100WBC Sodium 140 (135-145) mmol/L Potassium 4.6 (3.3-5.1) mmol/L Chloride 107 (96-108) mmol/L Carbon Dioxide 24 (22-29) mmol/L Anion Gap 14 (12-20) BUN 22 H (9-16) mg/dL Creatinine 1.08 (0.5-1.4) mg/dL Estim Creat Clear Calc 37.0 Estimated GFR 49 Random Glucose 248 H (60-115) mg/dL Calcium 9.0 (8.4-10.2) mg/dL Troponin I High Sens 6.2 (<3.5-17.0) ng/L Urine Color Urine Appearance Urine pH (5.0-8.0) Ur Specific [place] (1.005-1.025) Urine Protein (NEG-TRACE) MG/DL Urine Glucose (UA) (NEG) MG/DL Urine Ketones (NEG) MG/DL Urine Blood (NEG) Urine Nitrite (NEG) Ur Leukocyte Esterase (NEG) Urine RBC (0) /HPF Urine WBC (0-4) /HPF Ur Squamous Epith Cells /LPF Urine Bacteria /LPF COVID-19 ([facility]) (Negative) COVID-19 Clin Com 03/14/22 03/14/22 Range/Units 15:14 15:45 WBC (4.8-10.8) X10*3/uL RBC (4.20-5.50) X10*6/uL Hgb (12.0-16.0) g/dl Hct (37.0-47.0) % MCV (80.0-98.0) fL MCH (27.0-33.0) pg MCHC (31.0-35.0) g/dl RDW (11.0-16.0) % Plt Count (160-400) X10*3/uL MPV (9.4-12.3) fL Immature Gran % (Auto) (0.0-0.4) % Neut % (Auto) (45-73) % Lymph % (Auto) (20-40) % [place] % (Auto) (2-11) % Eos % (Auto) (0-4) % Baso % (Auto) (0-2) % Lymph # (Auto) (1.2-4.9) X10*3/uL [place] # (Auto) (0.1-1.2) X10*3/uL Eos # (Auto) (0.0-0.4) X10*3/uL Baso # (Auto) (0.0-0.2) X10*3/uL Abs Immat Gran (auto) (0.00-0.03) X10*3/uL Absolute Neuts (auto) (2.0-8.3) x10*3/uL Absolute Nucleated RBC (0.0-0.012) X10*3/uL Nucleated RBC % (auto) (0.0-0.2) /100WBC Sodium (135-145) mmol/L Potassium (3.3-5.1) mmol/L Chloride (96-108) mmol/L Carbon Dioxide (22-29) mmol/L Anion Gap (12-20) BUN (9-16) mg/dL Creatinine (0.5-1.4) mg/dL Estim Creat Clear Calc Estimated GFR Random Glucose (60-115) mg/dL Calcium (8.4-10.2) mg/dL Troponin I High Sens (<3.5-17.0) ng/L Urine Color YELLOW Urine Appearance CLOUDY Urine pH 6.0 (5.0-8.0) Ur Specific [place] 1.020 (1.005-1.025) Urine Protein 1+ H (NEG-TRACE) MG/DL Urine Glucose (UA) NEG (NEG) MG/DL Urine Ketones 5 (NEG) MG/DL Urine Blood 1+ H (NEG) Urine Nitrite NEG (NEG) Ur Leukocyte Esterase 2+ H (NEG) Urine RBC 1-4 (0) /HPF Urine WBC 30-49 H (0-4) /HPF Ur Squamous Epith Cells 2+ /LPF Urine Bacteria 4+ /LPF COVID-19 ([facility]) Negative (Negative) COVID-19 Clin Com See Note Discharge Plan Discharge Clinical Impression: Acute UTI, Weakness Patient Disposition: Admitted As Inpatient Prescriptions: No Action blood sugar diagnostic [FreeStyle Lite Strips] Strip 1 strip miscellaneous TID Qty: 300 0RF albuterol sulfate 2.5 mg /3 mL (0.083 %) solution for nebulization 2.5 mg inhalation QID PRN (Reason: shortness of breath or wheezing) Qty: 180 0RF metformin 1,000 mg tablet 1,000 mg PO BID Qty: 180 0RF loratadine 10 mg tablet 10 mg PO DAILY PRN (Reason: allergy symptoms) 90 Days Qty: 90 3RF metoprolol succinate 50 mg tablet extended release 24 hr 50 mg PO DAILY Qty: 90 0RF Vitamin B-12 3,000 mg sublingual DAILY nitrofurantoin macrocrystal [Macrodantin] 100 mg capsule 100 mg PO DAILY clopidogrel 75 mg tablet 75 mg PO DAILY 90 Days Qty: 90 3RF glyburide 2.5 mg tablet 2.5 mg PO BID 90 Days Qty: 180 3RF atorvastatin 80 mg tablet 80 mg PO DAILY latanoprost 0.005 % drops 1 drp ophthalmic (eye) BEDTIME nitroglycerin 0.4 mg tablet, sublingual 0.4 mg sublingual DAILY PRN (Reason: Angina) triamcinolone acetonide 0.1 % lotion 1 appl topical BID Qty: 60 3RF ondansetron 4 mg tablet,disintegrating 4 mg PO Q8H PRN (Reason: nausea and vomiting) 15 Days Qty: 45 3RF albuterol sulfate 90 mcg/actuation HFA aerosol inhaler 2 puff inhalation Q6H PRN (Reason: shortness of breath or wheezing) 30 Days Qty: 8.5 5RF sucralfate 100 mg/mL suspension 10 ml PO BEDTIME Qty: 400 5RF pantoprazole 40 mg tablet,delayed release (DR/EC) 40 mg PO BID Qty: 60 4RF
[2022-03-14 15:16] VITALS: BP 111/41; PULSE 74; RESP 16; O2SAT 98
[2022-03-14] MEDS: 0.9 % Sodium Chloride 1,000 ML 999 ML IVCONT (15:29)
[2022-03-14] MEDS: ondansetron HCL 4 MG/2 ML VIAL IVPUSH (15:29)
--- NOTE | 2022-03-14 15:33 | PC.NURSE ---
pt a&ox3, vss, medicated per provider order, ivf running.
[2022-03-14 15:52] LABS: COVID-19 Test Negative (Negative); IDNOW Serial# 9DB6401D
[2022-03-14 15:53] LABS: Appearance Urine CLOUDY; Color Urine YELLOW; Glucose Urine UA NEG (NEG); Leukocyte Esterase Urine 2+ (NEG); Nitrite Urine NEG (NEG); UACC Culture Trigger YES; Urine Blood 1+ (NEG); Urine Ketones 5 MG/DL (NEG); Urine Protein 1+ MG/DL (NEG-TRACE)
[2022-03-14 16:06] LABS: Bacteria Urine 4+ /LPF; Squamous Epithelial Cell Urine 2+ /LPF; WBC Urine 30-49 /HPF (0-4)
--- NOTE | 2022-03-14 17:43 | PHA.MEDREC ---
MED REC COMPLETE, NO ISSUES Pharmacy Consult ? Medication Reconciliation Pharmacy has completed the medication reconciliation.
--- NOTE | 2022-03-14 18:27 | P.HPHOSP_ITS ---
History of Present Illness Date of Service: 03/14/22 Chief Complaint: Weakness Patient comes to the emergency room complaining of nausea, weakness for 1 week.? Patient complaining of vomiting, no diarrhea.? Patient states that all of her symptoms started 7 days ago, she has been seen by urgent care.? Patient compl aining of mild bilateral lower quadrant pain, denies any blood in the stool or in the vomit. ER Course Workup consistent with UTI. Patient given a g of ceftriaxone and admission requested Review of Systems Review of Systems: Denies chest pain Denies shortness of breath Denies nausea vomiting diarrhea Denies fever chills [facility] Medical History Allergic rhinitis Anemia Asthma Benign essential hypertension Carotid atherosclerosis Chronic kidney disease (CKD), stage II (mild) Coronary artery disease (~06/09/21) Diabetic polyneuropathy associated with type 2 diabetes mellitus GERD without esophagitis Hearing impairment Hyperkalemia Meralgia paresthetica of right side Orbital fracture Overweight (BMI 25.0-29.9) Peripheral vascular disease Pure hypercholesterolemia Recurrent urinary tract infection Seizure Type 2 diabetes mellitus with diabetic polyneuropathy Upper GI bleeding Vitamin D deficiency Family History Father CVD (cardiovascular disease) Mother Stroke Brother CVD (cardiovascular disease) Esophageal cancer Surgical History History of cardiac catheterization History of endoscopy History of laparoscopic cholecystectomy History of left-sided carotid endarterectomy History of right-sided carotid endarterectomy S/P CABG x 4 (~06/09/21) S/P LASIK surgery Social History Household Members: Family and Children Housing: House Are you a primary intensive care medicine specialist to a significant other at home: No Do you presently have visiting nurse or other home services: No Alcohol intake: current Alcohol intake frequency: holidays/special occasions only Alcohol type: wine Patient Tobacco Use Status: Former Tobacco user Tobacco use type: Cigarette Second Hand Smoke Exposure: Yes Advance Directives: Yes Advance Directives on File: Yes Advance Directives Date on File: 01/11/22 service: No Current occupational status: retired 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 Cognitive needs: No Hearing needs: No Vision needs: No Meds Allergies Allergy/AdvReac Type Severity Reaction Status Date / Time doxycycline Allergy Mild Vomiting Verified 03/08/22 11:55 levetiracetam [From [facility]] Allergy Mild Vomiting Verified 03/08/22 11:55 amoxicillin Allergy Unknown rash Verified 03/08/22 11:55 Penicillins Allergy Unknown rash Verified 03/08/22 11:55 prednisone Allergy Unknown rash Verified 03/08/22 11:55 omeprazole AdvReac Unknown worsening Verified 03/08/22 11:55 heartburn ranitidine AdvReac Unknown worsening Verified 03/08/22 11:55 heartburn, abdominal pain (ONLY to generic) Active Medications: Current Medications Acetaminophen (Acetaminophen 325 Mg Tablet) 650 mg PO Q6H PRN PRN Reason: Pain, Mild (Pain Scale 1-3) Albuterol Sulfate (Albuterol Sulfate (0.083%) 2.5 Mg/3 Ml Vial.Neb) 2.5 mg INHALE QID PRN PRN Reason: shortness of breath or wheezing Albuterol Sulfate (Albuterol Sulfate 90 Mcg 8 Gm Inhaler) 2 puff INHALE Q6H PRN PRN Reason: shortness of breath or wheezing Atorvastatin Calcium (Atorvastatin Calcium 80 Mg Tablet) 80 mg PO BEDTIME [facility] Clopidogrel Bisulfate (Clopidogrel Bisulfate 75 Mg Tablet) 75 mg PO DAILY [facility] Dextrose/Sodium Chloride (D51/2ns) 1,000 mls @ 100 mls/hr IVCONT .Q10H [facility] Ceftriaxone Sodium 1 gm/ (Sodium Chloride) 50 mls @ 100 mls/hr IV Q24H [facility] Latanoprost (Latanoprost 0.005 % Ophth [place] 2.5 Ml Drops) 1 drop EYE-BOTH BEDTIM E [facility] Loratadine (Loratadine 10 Mg Tablet) 10 mg PO DAILY PRN PRN Reason: allergy symptoms Metformin HCl (Metformin Hcl 1,000 Mg Tablet) 1,000 mg PO BID [facility] Metoprolol Succinate (Metoprolol Succinate Er 50 Mg Tab.Er.24h) 50 mg PO DAILY [facility]; Protocol Nitroglycerin (Nitroglycerin 0.4 Mg Tab.Subl) 0.4 mg SUBLINGUAL DAILY PRN PRN Reason: Angina Non-Formulary Medication (Pantoprazole) 40 mg PO BID [facility] Ondansetron HCl (Ondansetron Hcl 4 Mg/2 Ml Vial) 4 mg IVPUSH Q8H PRN PRN Reason: Nausea and Vomiting Pharmacy Consult (Consult Rx Perform Med Rec) 1 each MISCELLANE ONCE PRN PRN Reason: Consult order Pharmacy Consult (Consult Rx Perform Med Rec) 1 each MISCELLANE ONCE PRN PRN Reason: Consult order Sodium Chloride (0.9 % Sodium Chloride Flush 3 Ml Syringe) 3 ml IVFLUSH QSHIFT [facility] Sucralfate (Sucralfate 1 Gm Tablet) gm PO BEDTIME [facility] Home Medications Medication Instructions Recorded Confirmed Last Taken Type atorvastatin 80 mg tablet 80 mg PO BEDTIME 07/26/20 03/14/22 Unknown History latanoprost 0.005 % eye drops 1 drp ophthalmic (eye) BEDTIME 07/26/20 03/14/22 Unknown History nitroglycerin 0.4 mg sublingual 0.4 mg sublingual DAILY PRN Angina 07/26/20 03/14/22 Unknown History tablet nitrofurantoin macrocrystal 100 mg 100 mg PO DAILY for UTI prophylaxis 11/25/21 03/14/22 03/14/22 History capsule (Macrodantin) glyburide 2.5 mg tablet 2.5 mg PO DAILY 03/14/22 03/14/22 Unknown History sucralfate 1 gram tablet 1 tab PO BEDTIME 03/14/22 03/14/22 Unknown History Physical Exam Vital Signs and Narrative: Vital Signs: Last Vital Signs Temp 98.1 F 03/14/22 10:43 Pulse 74 03/14/22 15:16 Resp 16 03/14/22 15:16 BP 111/41 L 03/14/22 15:16 Pulse Ox 98 03/14/22 15:16 O2 Del Method 03/14/22 15:16 BMI result Body Mass Index 25.6 Const: Other: Awake alert oriented x3 no acute distress Resp: Other: Clear to auscultation bilaterally no rales rhonchi or wheezes Cardio: Other: No S4; positive S1-S2; no S3 murmurs rubs or gallops GI: Other: Soft nontender nondistended normoactive bowel sounds Extrem: Other: No edema bilaterally Results Labs CBC and Chem 7: 03/14/22 10:54 03/14/22 10:54 Labs: Laboratory Results - last 24 hr 03/14/22 03/14/22 03/14/22 10:54 10:54 15:14 MCV 88.7 MCH 29.1 MCHC 32.8 RDW 13.1 Plt Count 308 MPV 8.4 L Immature Gran % (Auto) 0.3 Neut % (Auto) 85.3 H Lymph % (Auto) 8.3 L [place] % (Auto) 5.2 Eos % (Auto) 0.7 Baso % (Auto) 0.2 Lymph # (Auto) 0.7 L [place] # (Auto) 0.5 Eos # (Auto) 0.1 Baso # (Auto) 0.0 Abs Immat Gran (auto) 0.03 Absolute Neuts (auto) 7.5 Absolute Nucleated RBC 0.000 Nucleated RBC % (auto) 0.0 Anion Gap 14 Estim Creat Clear Calc 37.0 Estimated GFR 49 Random Glucose 248 H Calcium 9.0 Urine Color Urine Appearance Urine pH Ur Specific [place] Urine Protein Urine Glucose (UA) Urine Ketones Urine Blood Urine Nitrite Ur Leukocyte Esterase Urine RBC Urine WBC Ur Squamous Epith Cells Urine Bacteria COVID-19 ([facility]) Negative COVID-19 [facility] Com See Note 03/14/22 15:45 MCV MCH MCHC RDW Plt Count MPV Immature Gran % (Auto) Neut % (Auto) Lymph % (Auto) [place] % (Auto) Eos % (Auto) Baso % (Auto) Lymph # (Auto) [place] # (Auto) Eos # (Auto) Baso # (Auto) Abs Immat Gran (auto) Absolute Neuts (auto) Absolute Nucleated RBC Nucleated RBC % (auto) Anion Gap Estim Creat Clear Calc Estimated GFR Random Glucose Calcium Urine Color YELLOW Urine Appearance CLOUDY Urine pH 6.0 Ur Specific [place] 1.020 Urine Protein 1+ H Urine Glucose (UA) NEG Urine Ketones 5 Urine Blood 1+ H Urine Nitrite NEG Ur Leukocyte Esterase 2+ H Urine RBC 1-4 Urine WBC 30-49 H Ur Squamous Epith Cells 2+ Urine Bacteria 4+ COVID-19 ([facility]) COVID-19 Clin Com Assessment and Plan (1) Acute UTI: Status: Acute (2) Asthma: Qualifiers: Asthma severity: moderate Asthma persistence: persistent Asthma complication type: uncomplicated Qualified Code(s): J45.40 - Moderate persistent asthma, uncomplicated Status: Acute (3) Chronic kidney disease (CKD), stage II (mild): Status: Acute (4) Diabetic polyneuropathy associated with type 2 diabetes mellitus: Status: Acute (5) Benign essential hypertension: Status: Acute Plan 81-year-old female presents with 1 week of nausea and progressive weakness; now unable to transfer without to assist. Previously independent with all ADLs. Workup consistent with active urinary sediment consistent with UTI 1. UTI -ceftriaxone 1 g daily -normal saline solution at 100 an hour overnight -adjust therapies based on culture results 2. Asthma (mild intermittent) -continue albuterol nebs as per home regimen 3. CKD stage 2 -creatinine at baseline -follow renals/divalents 4. Diabetes type 2 -will continue outpatient oral regimen -cover with short-acting correctional scale -adjust as indicated 5. Hypertension -acceptable control on current therapies -adjust as indicated Full code Pneumatic boots Will require 1-2 midnights going forward for IV antibiotics to treat active UTI pending culture results. This cannot be done at a lesser acute setting Quality Stroke Does the patient have a stroke diagnosis?: No VTE Prior VTE?: No VTE Risk Level:: Medical - moderate - high VTE Device Contraindication: Treatment Not Indicated VTE Drug Contraindication: N/A - Med Ordered
[2022-03-14] MEDS: cefTRIAXone sodium 1 GM in 0.9 % Sodium Chloride 50 ML IV (18:39)
[2022-03-14 18:52] LABS: Lactic Acid 3.2 mmol/L (0.5-2.0)
[2022-03-14] MEDS: Dextrose 5 % and 0.45 % NaCl 1,000 ML 100 ML IVCONT (19:21)
[2022-03-14 20:02] VITALS: BP 117/40; PULSE 71; RESP 18; TEMP 37.1; O2SAT 97
[2022-03-14 20:33] LABS: Glucose, Whole Blood 216 mg/dL (60-115)
[2022-03-14 20:36] LABS: Reflex Lactate? Lactic Acid Added
[2022-03-14 21:30] LABS: ~Lactic Acid-LAB USE ONLY 2.4 mmol/L (0.5-2.0)
[2022-03-14 23:10] LABS: Reflex Lactate? 2 Y
[2022-03-14] MEDS: Sucralfate 1 GM TABLET PO (23:22)
[2022-03-14] MEDS: Atorvastatin Calcium 80 MG TABLET PO (23:23)
[2022-03-14] MEDS: Insulin Lispro 100 UNIT/ML 3 ML VIAL SUBCUT (23:23)
[2022-03-14] MEDS: metFORMIN HCl 1,000 MG TABLET 1000 MG PO (23:23)
--- NOTE | 2022-03-14 23:33 | PC.NURSE ---
pt ambulated with cane to bathroom, medicated per provider order.
[2022-03-14 23:38] LABS: ~Lactic Acid-LAB USE ONLY 1.2 mmol/L (0.5-2.0)
[2022-03-15] VITALS (9 sets, daily range): BP systolic 124–208; BP diastolic 39–70; PULSE 66–78; RESP 12–20; TEMP 36.4–37.3; O2SAT 95–97
--- NOTE | 2022-03-15 | ECG_ITS ---
Test Reason : dizziness Blood Pressure : / mmHG Vent. Rate : 070 BPM Atrial Rate : 070 BPM P-R Int : 170 ms QRS Dur : 082 ms QT Int : 392 ms P-R-T Axes : 054 042 105 degrees QTc Int : 423 ms Normal sinus rhythm with sinus arrhythmia Nonspecific ST and T wave abnormality Abnormal ECG When compared with ECG of 14-MAR-2022 10:47, T wave inversion no longer evident in Anterior leads Referred By: Bacilio Adkins Electronically Signed By:MOHSEN ARNOLD
[2022-03-15 04:52] LABS: MANUAL DIFF FLAG NO
[2022-03-15 04:58] LABS: Basophils Percent Auto 0.4 % (0-2); Eosinophils Absolute Auto 0.1 X10*3/uL (0.0-0.4); Eosinophils Percent Auto 2.4 % (0-4); Hematocrit 30.2 % (37.0-47.0); Hemoglobin 9.7 g/dl (12.0-16.0); Imm Gran Abs Auto 0.01 X10*3/uL (0.00-0.03); Imm Gran Pct Auto 0.2 % (0.0-0.4); Lymphocytes Absolute Auto 1.1 X10*3/uL (1.2-4.9); Lymphocytes Percent Auto 19.4 % (20-40); Mean Corpuscular HGB Conc 32.1 g/dl (31.0-35.0); Mean Corpuscular Volume 90.1 fL (80.0-98.0); Mean Platelet Volume 8.8 fL (9.4-12.3); Monocytes Absolute Auto 0.7 X10*3/uL (0.1-1.2); Monocytes Percent Auto 11.8 % (2-11); Neutrophils Absolute Auto 3.6 x10*3/uL (2.0-8.3); Neutrophils Percent Auto 65.8 % (45-73); Platelet Count 285 X10*3/uL (160-400); Red Blood Count 3.35 X10*6/uL (4.20-5.50); Red Cell Distribution Width 13.2 % (11.0-16.0); White Blood Count 5.5 X10*3/uL (4.8-10.8)
[2022-03-15 05:16] LABS: Alanine Aminotransferase 7 U/L (0-31); Albumin Level 3.4 g/dL (3.5-5.0); Alkaline Phosphatase 65 U/L (39-117); Anion Gap 13 (12-20); Aspartate Amino Transferase 10 U/L (5-31); Bilirubin Total 0.3 mg/dL (0.0-1.0); Blood Urea Nitrogen 19 mg/dL (9-16); Calcium 8.2 mg/dL (8.4-10.2); Carbon Dioxide 23 mmol/L (22-29); Chloride 110 mmol/L (96-108); Creatinine Clr Calc Pharmacy 39.1; Estimated Glomerular Filt Rate 52; Glucose Fasting 57 mg/dL (60-99); Potassium 4.1 mmol/L (3.3-5.1); Sodium 142 mmol/L (135-145); Total Protein 5.2 g/dL (6.5-8.0)
[2022-03-15] MEDS: Dextrose 5 % and 0.45 % NaCl 1,000 ML 100 ML IVCONT (05:28)
--- NOTE | 2022-03-15 05:40 | PC.NURSE ---
primary RN notified of fasting blood glucose - 57. MD notified. pt given6 oz of orange juice and rob crackers. pt has not complaints or sx of hypogylcemia
[2022-03-15 05:47] LABS: Glucose, Whole Blood 78 mg/dL (60-115)
[2022-03-15 07:10] LABS: Glucose, Whole Blood 154 mg/dL (60-115)
--- NOTE | 2022-03-15 07:25 | PC.NURSE ---
pt's daughter jabari ([phone]) called and was updated on pt status...
--- NOTE | 2022-03-15 07:52 | PC.NURSE ---
pt a/o x 3 no sob/deborah noted skin pink warm dry speaks in full sentences. pt ate 100% of breakfast. pt refused sl scale insulin, poc 154.
[2022-03-15] MEDS: Clopidogrel Bisulfate 75 MG TABLET PO (08:01)
[2022-03-15] MEDS: metFORMIN HCl 1,000 MG TABLET 1000 MG PO ×2 (08:01→20:35)
[2022-03-15] MEDS: Metoprolol Succinate ER 50 MG TAB.ER.24H PO (08:01)
[2022-03-15] MEDS: Omeprazole 20 MG CAPSULE.DR PO (08:01)
[2022-03-15] MEDS: 0.9 % Sodium Chloride Flush 3 ML SYRINGE IVFLUSH ×2 (08:02→20:44)
--- NOTE | 2022-03-15 09:00 | PC.NURSE ---
pt amb (i) gait steady to bathroom and btb.
--- NOTE | 2022-03-15 09:24 | MHC.CM.PN ---
Attempted to meet with patient in regards to discharge planning. Patient sleeping. No family present. Will attempt to meet again. Continue to monitor for d/c needs.
--- NOTE | 2022-03-15 10:00 | PC.NURSE ---
dr. garcia at bedside, pt aware of plan of care.
--- NOTE | 2022-03-15 10:20 | PC.NURSE ---
pt has fine rash to l forearm ?rocephin med allergy, dr. garcia aware.
--- NOTE | 2022-03-15 12:43 | PC.NURSE ---
pt c/o dizziness, n/v sm amt of bile. aware.
[2022-03-15] MEDS: ondansetron HCL 4 MG/2 ML VIAL IVPUSH (12:48)
[2022-03-15 13:06] LABS: Glucose, Whole Blood 113 mg/dL (60-115)
--- NOTE | 2022-03-15 13:49 | HO.PM.IMPN ---
Subjective Subjective Date of Service: 03/15/22 Interval History: Episode of symptomatic tachycardia with diaphoresis nausea and vomiting this afternoon. Denies chest pain. Review of Systems Denies chest pain Denies shortness of breath Admits to nausea and vomiting Denies fever chills Admits dizziness Physical Exam Vital Signs: Vital Signs: Last Vital Signs Temp 99.2 F 03/15/22 07:31 Pulse 74 03/15/22 12:57 Resp 12 03/15/22 09:40 BP 178/70 H 03/15/22 12:57 Pulse Ox 97 03/15/22 09:40 O2 Del Method 03/15/22 09:40 BMI result Body Mass Index 25.6 Const: Other: Cool clammy ill-appearing Resp: Other: Clear to auscultation bilaterally no rales rhonchi or wheezes Cardio: Other: No S4; positive S1-S2; no S3 murmurs rubs or gallops Extrem: Other: Trace edema bilaterally Objective Data Active Medications Acetaminophen (Acetaminophen 325 Mg Tablet) 650 mg PO Q6H PRN PRN Reason: Pain, Mild (Pain Scale 1-3) Albuterol Sulfate (Albuterol Sulfate (0.083%) 2.5 Mg/3 Ml Vial.Neb) 2.5 mg INHALE QID PRN PRN Reason: shortness of breath or wheezing Albuterol Sulfate (Albuterol Sulfate 90 Mcg 8 Gm Inhaler) 2 puff INHALE Q6H PRN PRN Reason: shortness of breath or wheezing Atorvastatin Calcium (Atorvastatin Calcium 80 Mg Tablet) 80 mg PO BEDTIME [facility] Last Admin: 03/14/22 23:23 Dose: 80 mg Documented By: CHANELLE Clopidogrel Bisulfate (Clopidogrel Bisulfate 75 Mg Tablet) 75 mg PO DAILY [facility] Last Admin: 03/15/22 08:01 Dose: 75 mg Documented By: TENA Dextrose/Sodium Chloride (D51/2ns) 1,000 mls @ 100 mls/hr IVCONT .Q10H [facility] Last Admin: 03/15/22 05:28 Dose: 100 mls/hr Documented By: RHYS Insulin Human Lispro (Insulin Lispro 100 Unit/Ml 3 Ml Vial) 0 unit SUBCUT QIDACHS [facility]; Protocol Last Admin: 03/15/22 13:15 Dose: Not Given Documented By: TENA Non-Admin Reason: No Insulin Coverage Latanoprost (Latanoprost 0.005 % Ophth Rosa 2.5 Ml Drops) 1 drop EYE-BOTH BEDTIME [facility] Last Admin: 03/14/22 23:23 Dose: Not Given Documented By: CHANELLE Non-Admin Reason: Med Not Available Loratadine (Loratadine 10 Mg Tablet) 10 mg PO DAILY PRN PRN Reason: allergy symptoms Metformin HCl (Metformin Hcl 1,000 Mg Tablet) 1,000 mg PO BID [facility] Last Admin: 03/15/22 08:01 Dose: 1,000 mg Documented By: TENA Metoprolol Succinate (Metoprolol Succinate Er 50 Mg Tab.Er.24h) 50 mg PO DAILY [facility]; Protocol Last Admin: 03/15/22 08:01 Dose: 50 mg Documented By: TENA Nitroglycerin (Nitroglycerin 0.4 Mg Tab.Subl) 0.4 mg SUBLINGUAL Q5MX3 PRN PRN Reason: Angina Omeprazole (Omeprazole 20 Mg Capsule.Dr) 20 mg PO BID@0630,1630 [facility] Last Admin: 03/15/22 08:01 Dose: 20 mg Documented By: TENA Ondansetron HCl (Ondansetron Hcl 4 Mg/2 Ml Vial) 4 mg IVPUSH Q8H PRN PRN Reason: Nausea and Vomiting Last Admin: 03/15/22 12:48 Dose: 4 mg Documented By: TENA Pharmacy Consult (Consult Rx Perform Med Rec) 1 each MISCELLANE ONCE PRN PRN Reason: Consult order Pharmacy Consult (Consult Rx Perform Med Rec) 1 each MISCELLANE ONCE PRN PRN Reason: Consult order Sodium Chloride (0.9 % Sodium Chloride Flush 3 Ml Syringe) 3 ml IVFLUSH QSHIFT [facility] Last Admin: 03/15/22 08:02 Dose: 3 ml Documented By: TENA Sucralfate (Sucralfate 1 Gm Tablet) 1 gm PO BEDTIME [facility] Last Admin: 03/14/22 23:22 Dose: 1 gm Documented By: CHANELLE Labs CBC & Chem 7: 03/15/22 04:20 03/15/22 04:20 Labs: Laboratory Results - last 24 hr 03/14/22 03/14/22 03/14/22 15:14 15:45 18:31 MCV MCH MCHC RDW Plt Count MPV Immature Gran % (Auto) Neut % (Auto) Lymph % (Auto) Harper % (Auto) Eos % (Auto) Baso % (Auto) Lymph # (Auto) Harper # (Auto) Eos # (Auto) Baso # (Auto) Abs Immat Gran (auto) Absolute Neuts (auto) Absolute Nucleated RBC Nucleated RBC % (auto) Anion Gap Estim Creat Clear Calc Estimated GFR POC Glucose Fasting Glucose Lactic Acid 3.2 H* Lactic Acid F/U @ 2Hr Lactic Acid F/U @ 4Hr Calcium Total Bilirubin AST ALT Alkaline Phosphatase Total Protein Albumin Urine Color YELLOW Urine Appearance CLOUDY Urine pH 6.0 Ur Specific [place] 1.020 Urine Protein 1+ H Urine Glucose (UA) NEG Urine Ketones 5 Urine Blood 1+ H Urine Nitrite NEG Ur Leukocyte Esterase 2+ H Urine RBC 1-4 Urine WBC 30-49 H Ur Squamous Epith Cells 2+ Urine Bacteria 4+ COVID-19 (MARIBETH) Negative COVID-19 Nodality Com See Note 03/14/22 03/14/22 03/14/22 20:30 21:06 23:20 MCV MCH MCHC RDW Plt Count MPV Immature Gran % (Auto) Neut % (Auto) Lymph % (Auto) Harper % (Auto) Eos % (Auto) Baso % (Auto) Lymph # (Auto) Harper # (Auto) Eos # (Auto) Baso # (Auto) Abs Immat Gran (auto) Absolute Neuts (auto) Absolute Nucleated RBC Nucleated RBC % (auto) Anion Gap Estim Creat Clear Calc Estimated GFR POC Glucose 216 H Fasting Glucose Lactic Acid Lactic Acid F/U @ 2Hr 2.4 H* Lactic Acid F/U @ 4Hr 1.2 Calcium Total Bilirubin AST ALT Alkaline Phosphatase Total Protein Albumin Urine Color Urine Appearance Urine pH Ur Specific [place] Urine Protein Urine Glucose (UA) Urine Ketones Urine Blood Urine Nitrite Ur Leukocyte Esterase Urine RBC Urine WBC Ur Squamous Epith Cells Urine Bacteria COVID-19 (MARIBETH) COVID-19 [facility] 03/15/22 03/15/22 03/15/22 04:20 04:20 05:43 MCV 90.1 MCH 29.0 MCHC 32.1 RDW 13.2 Plt Count 285 MPV 8.8 L Immature Gran % (Auto) 0.2 Neut % (Auto) 65.8 Lymph % (Auto) 19.4 L Harper % (Auto) 11.8 H Eos % (Auto) 2.4 Baso % (Auto) 0.4 Lymph # (Auto) 1.1 L Harper # (Auto) 0.7 Eos # (Auto) 0.1 Baso # (Auto) 0.0 Abs Immat Gran (auto) 0.01 Absolute Neuts (auto) 3.6 Absolute Nucleated RBC 0.000 Nucleated RBC % (auto) 0.0 Anion Gap 13 Estim Creat Clear Calc 39.1 Estimated GFR 52 POC Glucose 78 Fasting Glucose 57 L* Lactic Acid Lactic Acid F/U @ 2Hr Lactic Acid F/U @ 4Hr Calcium 8.2 L D Total Bilirubin 0.3 AST 10 ALT 7 Alkaline Phosphatase 65 D Total Protein 5.2 L Albumin 3.4 L Urine Color Urine Appearance Urine pH Ur Specific [place] Urine Protein Urine Glucose (UA) Urine Ketones Urine Blood Urine Nitrite Ur Leukocyte Esterase Urine RBC Urine WBC Ur Squamous Epith Cells Urine Bacteria COVID-19 (MARIBETH) COVID-SSEV 03/15/22 03/15/22 07:05 12:47 MCV MCH MCHC RDW Plt Count MPV Immature Gran % (Auto) Neut % (Auto) Lymph % (Auto) Harper % (Auto) Eos % (Auto) Baso % (Auto) Lymph # (Auto) Harper # (Auto) Eos # (Auto) Baso # (Auto) Abs Immat Gran (auto) Absolute Neuts (auto) Absolute Nucleated RBC Nucleated RBC % (auto) Anion Gap Estim Creat Clear Calc Estimated GFR POC Glucose 154 H 113 Fasting Glucose Lactic Acid Lactic Acid F/U @ 2Hr Lactic Acid F/U @ 4Hr Calcium Total Bilirubin AST ALT Alkaline Phosphatase Total Protein Albumin Urine Color Urine Appearance Urine pH Ur Specific [place] Urine Protein Urine Glucose (UA) Urine Ketones Urine Blood Urine Nitrite Ur Leukocyte Esterase Urine RBC Urine WBC Ur Squamous Epith Cells Urine Bacteria COVID-19 (MARIBETH) COVID-19 [facility] Microbiology Microbiology Results: Microbiology 03/14/22 15:58 Urine Culture - Preliminary Urine clean catch - Urine day top Gram negative mariam Assessment and Plan (1) Symptomatic tachycardia: Status: Acute (2) Acute UTI: Status: Acute (3) Chronic kidney disease (CKD), stage II (mild): Status: Acute (4) Diabetic polyneuropathy associated with type 2 diabetes mellitus: Status: Acute (5) Benign essential hypertension: Status: Acute Plan 81-year-old female presents with 1 week of nausea and progressive weakness; now unable to transfer without to assist.? Previously independent with all ADLs.? Workup consistent with active urinary sediment consistent with UTI; developed tachycardia this a.m. with diaphoresis and dizziness. Vomited bilious material. 1. Symptomatic tachycardia in the backdrop of CAD status post CABG 05/2021 -repeat routine labs including troponin.... Continue telemetry DC IV fluids -stat EKG -2D echo to evaluate wall motion -cardiology consult 2. UTI -Levaquin 250 p.o. daily -adjust therapies based on culture results 3. Asthma (mild intermittent) -continue albuterol nebs as per home regimen 4. CKD stage 2 -creatinine at baseline -follow renals/divalents 5. Diabetes type 2 -will continue outpatient oral regimen -cover with short-acting correctional scale -adjust as indicated 6. Hypertension -acceptable control on current therapies -adjust as indicated Full code Pneumatic boots Will require ongoing hospitalization for aggressive cardiac workup along with telemetry monitoring Quality Stroke Does the patient have a stroke diagnosis?: No VTE Prior VTE?: No VTE Risk Level:: Medical - moderate - high VTE Device Contraindication: Treatment Not Indicated VTE Drug Contraindication: N/A - Med Ordered
[2022-03-15 14:07] LABS: Hematocrit 32.8 % (37.0-47.0); Hemoglobin 10.8 g/dl (12.0-16.0); Mean Corpuscular HGB Conc 32.9 g/dl (31.0-35.0); Mean Corpuscular Volume 87.9 fL (80.0-98.0); Mean Platelet Volume 8.5 fL (9.4-12.3); Platelet Count 260 X10*3/uL (160-400); Red Blood Count 3.73 X10*6/uL (4.20-5.50); Red Cell Distribution Width 13.1 % (11.0-16.0)
[2022-03-15 14:22] LABS: Alanine Aminotransferase 9 U/L (0-31); Albumin Level 3.7 g/dL (3.5-5.0); Alkaline Phosphatase 74 U/L (39-117); Anion Gap 15 (12-20); Aspartate Amino Transferase 12 U/L (5-31); Bilirubin Total 0.3 mg/dL (0.0-1.0); Blood Urea Nitrogen 14 mg/dL (9-16); Calcium 8.3 mg/dL (8.4-10.2); Carbon Dioxide 19 mmol/L (22-29); Chloride 110 mmol/L (96-108); Creatinine Clr Calc Pharmacy 44.4; Estimated Glomerular Filt Rate > 60; Glucose Random 143 mg/dL (60-115); Potassium 4.3 mmol/L (3.3-5.1); Sodium 140 mmol/L (135-145); Total Protein 5.7 g/dL (6.5-8.0)
[2022-03-15 14:27] LABS: Troponin-I High Sensitivity 5.9 ng/L (<3.5-17.0)
--- NOTE | 2022-03-15 16:00 | CA_ITS ---
Transthoracic Echocardiogram Patient (Last, First, Middle): Jermain Gonzales, Gender: Female Date of : 1940 Age: 81 Procedure Date: 03/15/2022 Procedure Type: Transthoracic Echocardiogram Location: ER Height: 157.48 cm Weight: 63.5 kg BSA: 1.64 m2 Heart Rate: bpm BP: 178 / 70 mmHg Database Reporting Consultant: Referring MD: Bacilio Adkins DO Symptoms: tachycardia hx CAD Study Quality: Fair ECG Rhythm: Sinus Conclusions: - The left ventricular systolic function is normal. The calculated ejection fraction is 60% by biplane method. - The basal inferior and basal inferoseptal segments are akinetic. - No obvious valvular pathology seen on this study. Findings Left Ventricle Normal left ventricular cavity size. There is mildly increased left ventricular wall thickness. The left ventricular systolic function is normal. The calculated ejection fraction is 60% by biplane method. Diastolic function is normal for age. Wall Motion Rest Echo Findings The basal inferior and basal inferoseptal segments are akinetic. Right Ventricle Normal right ventricular cavity size. There is mildly decreased right ventricular systolic function. Atria Both atria are normal in size. Aortic Valve There is a normal trileaflet aortic valve. There is no aortic valve stenosis. There is no aortic valve regurgitation. Mitral Valve The mitral valve appears normal. There is trace mitral valve regurgitation. There is no mitral valve stenosis. Pulmonic Valve The pulmonic valve is likely normal. Tricuspid Valve There is trace tricuspid valve regurgitation. The pulmonary artery systolic pressure is normal. Great Vessels The aortic annulus, sinuses of valsalva, and asc aorta are normal in size. Venous The inferior vena cava is normal in size and collapses greater than 50% with inspiration. Pericardium/Pleural There is no evidence of pericardial effusion. Recommendations, Care & Conclusions No obvious valvular pathology seen on this study. Measurements 2D Linear Measurements IVSd: 1.08 0.6-0.9/0.6-1.0 cm LVIDd: 4.69 3.9-5.3/4.2-5.9 cm LVIDd Index: 2.86 2.4-3.2/2.2-3.1 cm/m2 LVIDs: 3.14 2.0-3.6 cm LVPWd: 1.04 0.7-1.1 cm Ao Root: 2.90 2.1-3.5 cm LA Diam: 4.40 2.7-3.8/3.0-4.0 cm LAIDs Index: 2.68 1.5-2.3 cm/m2 LV Mass: 221.17 67-162/88-224 g LV Mass Index: 134.86 43-95/49-115 g/m2 LVOT Diam: 2.10 3.0+(-)1.3 cm 2D Systolic Function EF 4C: 52.80 >55% EF 2C: 67.70 >55% EF BiP: 59.50 >55% Mitral Valve MV Pk E: 1.03 MV PK A: 0.90 MV Decel Time: 184.00 E/A: 1.10 E'Lateral: 7.62 E'Medial: 4.24 E/E' Med: 24.30 E/E' Lat: 13.50 PHT: 54.00 MVA PHT: 4.07 Decel Tucker: 5.59 Aortic Valve AoV Pk Abdias: 1.69 AoV Mn Abdias: 1.08 AoV VTI: 0.46 AoV Pk Grad: 11.00 Aov Mn Grad: 5.00 PABLO Cont.VTI: 1.32 LVOT LVOT Pk Abdias: 0.76 LVOT Mn Abdias: 0.48 LVOT VTI: 0.18 LVOT Pk Grad: 2.00 LVOT Mn Grad: 1.00 LVOT Diam: 2.10 LVOT Area: 3.46 Diastolic Function MV Pk E: 1.03 MV Pk A: 0.90 E/A: 1.10 E'Medial: 4.24 E/E' Med: 24.30 E' Laterial: 7.62 E/E' Lat: 13.50 Right Ventricle TAPSE (mm): 15.00 TVS' Abdias: 7.00 Tricuspid Valve TR Pk Abdias: 1.59 TR Pk Grad: 10.00 RA Press: 3.00 Great Vessels Aorta Ao Root-2D: 2.90 2.0-3.7 cm Ao Asc: 2.80 2.1-3.4 cm Pulmonary Valve PV Pk Abdias: 1.08 Peak PV Grad: 5.00 Updated in Other Vendor System with Status of Final Steve Caraballo MD electronically signed on 03/16/2022 10:07:04 AM with status of Final
--- NOTE | 2022-03-15 17:47 | MHC.CM.PN ---
IMM 03/15. Met with admitted patient with bed assignment 354. A&Ox4. [facility]. 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 Pt has family living with her in her own home. Pt uses a cane, but is normally independent at home. Pt has private pay [employer] to help at home. Vax/boosted/[employer]. Per pt and family, if patient needs VNA they would like [facility]. HCP on file. HCP/daughter Clemencia Gonzales ([phone]). D/C plan: Home by 12 noon on Sunday if possible. Family will transport home. CM following for d/c needs.
[2022-03-15 18:46] LABS: Glucose, Whole Blood 99 mg/dL (60-115)
[2022-03-15] MEDS: Atorvastatin Calcium 80 MG TABLET PO (20:37)
[2022-03-15] MEDS: Sucralfate 1 GM TABLET PO (20:37)
[2022-03-15] MEDS: Latanoprost 0.005 % Ophth Sol 2.5 ML DROPS 1 DROP EYE-BOTH (22:33)
[2022-03-16] VITALS: BP 127/52; PULSE 65; RESP 17; TEMP 36.2; O2SAT 93
[2022-03-16 05:38] LABS: MANUAL DIFF FLAG NO
[2022-03-16 05:40] LABS: Basophils Percent Auto 0.3 % (0-2); Eosinophils Absolute Auto 0.2 X10*3/uL (0.0-0.4); Eosinophils Percent Auto 3.6 % (0-4); Hematocrit 33.3 % (37.0-47.0); Imm Gran Abs Auto 0.02 X10*3/uL (0.00-0.03); Imm Gran Pct Auto 0.3 % (0.0-0.4); Lymphocytes Absolute Auto 1.1 X10*3/uL (1.2-4.9); Lymphocytes Percent Auto 18.1 % (20-40); Mean Corpuscular Hemoglobin 29.3 pg (27.0-33.0); Mean Corpuscular Volume 88.8 fL (80.0-98.0); Mean Platelet Volume 8.6 fL (9.4-12.3); Monocytes Absolute Auto 0.6 X10*3/uL (0.1-1.2); Neutrophils Absolute Auto 4.1 x10*3/uL (2.0-8.3); Neutrophils Percent Auto 67.7 % (45-73); Platelet Count 259 X10*3/uL (160-400); Red Blood Count 3.75 X10*6/uL (4.20-5.50); Red Cell Distribution Width 13.1 % (11.0-16.0)
[2022-03-16] MEDS: Omeprazole 20 MG CAPSULE.DR PO (05:55)
[2022-03-16 06:12] LABS: Alanine Aminotransferase 8 U/L (0-31); Albumin Level 3.5 g/dL (3.5-5.0); Alkaline Phosphatase 69 U/L (39-117); Anion Gap 14 (12-20); Aspartate Amino Transferase 12 U/L (5-31); Bilirubin Total 0.4 mg/dL (0.0-1.0); Blood Urea Nitrogen 14 mg/dL (9-16); Calcium 8.5 mg/dL (8.4-10.2); Carbon Dioxide 22 mmol/L (22-29); Chloride 108 mmol/L (96-108); Creatinine Clr Calc Pharmacy 47.5; Estimated Glomerular Filt Rate > 60; Glucose Fasting 98 mg/dL (60-99); Potassium 4.6 mmol/L (3.3-5.1); Sodium 139 mmol/L (135-145); Total Protein 5.5 g/dL (6.5-8.0)
[2022-03-16 07:18] VITALS: BP 158/67; PULSE 65; RESP 17; TEMP 36; O2SAT 95
[2022-03-16 07:32] LABS: Glucose, Whole Blood 92 mg/dL (60-115)
[2022-03-16] MEDS: metFORMIN HCl 1,000 MG TABLET 1000 MG PO (09:00)
[2022-03-16] MEDS: Metoprolol Succinate ER 50 MG TAB.ER.24H PO (09:00)
[2022-03-16] MEDS: Clopidogrel Bisulfate 75 MG TABLET PO (09:01)
[2022-03-16] MEDS: 0.9 % Sodium Chloride Flush 3 ML SYRINGE IVFLUSH (09:02)
[2022-03-16] MEDS: Loratadine 10 MG TABLET PO (09:11)
--- NOTE | 2022-03-16 10:22 | MHC.CM.PN ---
CM INFORMED PT MAY BE READY TO DC TODAY KIRSTIE CALLED PTS DAUGHTER, ABELARDO [phone] AND INFORMED HER OF INTENT TO DC SHE REPORTS BEING HAPPY ABOUT THIS BUT REQUESTS A CALL FROM MD TO REVIEW ECHO RESULTS REQUEST FORWARD TO PT WILL DC HOME TODAY WITH NO SERVICES DAUGHTER TO TRANSPORT
--- NOTE | 2022-03-16 10:56 | PM.CNCAR ---
History of Present Illness History of Present Illness Date of Service: 03/16/22 Chief complaint: UTI Narrative: Patient has been admitted for complaints of nausea, vomiting and weakness. She has been admitted with a diagnosis of UTI. She also has a lot of chronic cardiac issues and hence we have been asked to see her. At this time, however she denies any anginal-type symptoms or shortness of breath or in fact anything cardiac related at all. She generally goes to [facility]. Old records reviewed. She has a history of coronary disease, hypertension, hyperlipidemia and peripheral vascular disease and diabetes. A prior cardiac catheterization showed multivessel disease and subsequently she underwent coronary artery bypass surgery in May 2021. In November of this year, she had coffee-ground vomiting and had upper GI bleeding. She went into hemorrhagic shock and was admitted to ICU and EGD had shown multiple bleeding ulcers. Then apparently Plavix was held for a week or so. Last echocardiogram from January 2022 reported to have normal LV size and thickness and possible hypokinesis of the base of inferior wall. In June 2021, she also had a witnessed seizure and again had some intubation/management of cellulitis. One further hospitalization in July again for vomiting, seizure and fall. Overall, numerous hospitalizations for cardiac as well as noncardiac reasons. However at this time, she denies any cardiac symptoms at all. Review of Systems Review of Systems: Yes all other systems are reviewed and are negative Constitutional: Constitutional: Reports as per HPI Eyes: Eyes: Reports as per HPI ENT: Reports as per HPI Cardiovascular: Cardiovascular: Reports as per HPI, Denies acrocyanosis, Denies cool extremities, Denies chest pain, Denies leg edema, Denies lightheadedness, Denies palpitations and Denies dyspnea Respiratory: Respiratory: Reports as per HPI, Reports no additional respiratory complaints and Denies dyspnea Gastrointestinal: Gastrointestinal: Reports as per HPI and Reports no additional gastrointestinal complaints Genitourinary: Genitourinary: Reports as per HPI Musculoskeletal: Musculoskeletal: Reports no additional musculoskeletal complaints and Reports as per HPI Integumentary/Breasts: Skin/Breast: Reports system reviewed and no additional complaints, except as docu Neurologic: Reports system reviewed and no additional complaints, except as documented and Reports as per HPI Psychiatric: Psychiatric: Reports no additional psychiatric complaints and Reports as per HPI Endocrine: Endocrine: Reports no additional endocrine complaints, Reports as per HPI and Denies palpitations Hematologic/Lymphatic: Hematologic/Lymphatic: Reports no additional hematologic/lymphatic complaints and Reports as per HPI Allergic/Immunologic: Allergic/Immunologic: Reports no additional allergic/immunologic complaints and Reports as per HPI [facility] Past Medical History Medical History Allergic rhinitis Anemia Asthma Benign essential hypertension Carotid atherosclerosis Chronic kidney disease (CKD), stage II (mild) Coronary artery disease (~06/09/21) Diabetic polyneuropathy associated with type 2 diabetes mellitus GERD without esophagitis Hearing impairment Hyperkalemia Meralgia paresthetica of right side Orbital fracture Overweight (BMI 25.0-29.9) Peripheral vascular disease Pure hypercholesterolemia Recurrent urinary tract infection Seizure Type 2 diabetes mellitus with diabetic polyneuropathy Upper GI bleeding Vitamin D deficiency Family History Family History Father CVD (cardiovascular disease) Mother Stroke Brother CVD (cardiovascular disease) Esophageal cancer Surgical History Surgical History History of cardiac catheterization History of endoscopy History of laparoscopic cholecystectomy History of left-sided carotid endarterectomy History of right-sided carotid endarterectomy S/P CABG x 4 (~06/09/21) S/P LASIK surgery Social History Social History Household Members: Children Housing: House Are you a primary customer care professional to a significant other at home: No Do you presently have visiting nurse or other home services: No Alcohol intake: never Patient Tobacco Use Status: Former Tobacco user Quit Date: 34 years ago Tobacco use type: Cigarette Second Hand Smoke Exposure: No Advance Directives Date on File: 01/11/22 service: No Current occupational status: retired 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 Cognitive needs: No Hearing needs: No Vision needs: No Meds Allergies Allergy/AdvReac Type Severity Reaction Status Date / Time doxycycline Allergy Mild Vomiting Verified 03/08/22 11:55 levetiracetam [From Keppra] Allergy Mild Vomiting Verified 03/08/22 11:55 amoxicillin Allergy Unknown rash Verified 03/08/22 11:55 Penicillins Allergy Unknown rash Verified 03/08/22 11:55 prednisone Allergy Unknown rash Verified 03/08/22 11:55 ceftriaxone [From Rocephin] Allergy Rash Verified 03/15/22 11:08 milk Allergy Unknown Verified 03/15/22 10:54 omeprazole AdvReac Unknown worsening Verified 03/08/22 11:55 heartburn ranitidine AdvReac Unknown worsening Verified 03/08/22 11:55 heartburn, abdominal pain (ONLY to generic) Active Medications: Current Medications Acetaminophen (Acetaminophen 325 Mg Tablet) 650 mg PO Q6H PRN PRN Reason: Pain, Mild (Pain Scale 1-3) Albuterol Sulfate (Albuterol Sulfate (0.083%) 2.5 Mg/3 Ml Vial.Neb) 2.5 mg INHALE QID PRN PRN Reason: shortness of breath or wheezing Albuterol Sulfate (Albuterol Sulfate 90 Mcg 8 Gm Inhaler) 2 puff INHALE Q6H PRN PRN Reason: shortness of breath or wheezing Atorvastatin Calcium (Atorvastatin Calcium 80 Mg Tablet) 80 mg PO BEDTIME ON LICENSE OF [facility] Last Admin: 03/15/22 20:37 Dose: 80 mg Clopidogrel Bisulfate (Clopidogrel Bisulfate 75 Mg Tablet) 75 mg PO DAILY ON LICENSE OF [facility] Last Admin: 03/16/22 09:01 Dose: 75 mg Insulin Human Lispro (Insulin Lispro 100 Unit/Ml 3 Ml Vial) 0 unit SUBCUT QIDACHS ON LICENSE OF [facility]; Protocol Last Admin: 03/16/22 07:49 Dose: Not Given Latanoprost (Latanoprost 0.005 % Ophth Rosa 2.5 Ml Drops) 1 drop EYE-BOTH BEDTIME ON LICENSE OF [facility] Last Admin: 03/15/22 22:33 Dose: 1 drop Loratadine (Loratadine 10 Mg Tablet) 10 mg PO DAILY PRN PRN Reason: allergy symptoms Last Admin: 03/16/22 09:11 Dose: 10 mg Metformin HCl (Metformin Hcl 1,000 Mg Tablet) 1,000 mg PO BID ON LICENSE OF [facility] Last Admin: 03/16/22 09:00 Dose: 1,000 mg Metoprolol Succinate (Metoprolol Succinate Er 50 Mg Tab.Er.24h) 50 mg PO DAILY ON LICENSE OF [facility]; Protocol Last Admin: 03/16/22 09:00 Dose: 50 mg Nitroglycerin (Nitroglycerin 0.4 Mg Tab.Subl) 0.4 mg SUBLINGUAL Q5MX3 PRN PRN Reason: Angina Omeprazole (Omeprazole 20 Mg Capsule.Dr) 20 mg PO BID@0630,1630 ON LICENSE OF [facility] Last Admin: 03/16/22 05:55 Dose: 20 mg Ondansetron HCl (Ondansetron Hcl 4 Mg/2 Ml Vial) 4 mg IVPUSH Q8H PRN PRN Reason: Nausea and Vomiting Last Admin: 03/15/22 12:48 Dose: 4 mg Pharmacy Consult (Consult Rx Perform Med Rec) 1 each MISCELLANE ONCE PRN PRN Reason: Consult order Pharmacy Consult (Consult Rx Perform Med Rec) 1 each MISCELLANE ONCE PRN PRN Reason: Consult order Sodium Chloride (0.9 % Sodium Chloride Flush 3 Ml Syringe) 3 ml IVFLUSH QSHIFT ON LICENSE OF [facility] Last Admin: 03/16/22 09:02 Dose: 3 ml Sucralfate (Sucralfate 1 Gm Tablet) 1 gm PO BEDTIME ON LICENSE OF [facility] Last Admin: 03/15/22 20:37 Dose: 1 gm Home Medications Medication Instructions Recorded Confirmed Last Taken Type atorvastatin 80 mg tablet 80 mg PO BEDTIME 07/26/20 03/14/22 Unknown History latanoprost 0.005 % eye drops 1 drp ophthalmic (eye) BEDTIME 07/26/20 03/14/22 Unknown History nitroglycerin 0.4 mg sublingual 0.4 mg sublingual DAILY PRN Angina 07/26/20 03/14/22 Unknown History tablet nitrofurantoin macrocrystal 100 mg 100 mg PO DAILY for UTI prophylaxis 11/25/21 03/14/22 03/14/22 History capsule (Macrodantin) glyburide 2.5 mg tablet 2.5 mg PO DAILY 03/14/22 03/14/22 Unknown History sucralfate 1 gram tablet 1 tab PO BEDTIME 03/14/22 03/14/22 Unknown History Physical Exam Vital Signs: Vital Signs: Last Vital Signs Temp 96.8 F 03/16/22 07:18 Pulse 65 03/16/22 07:18 Resp 17 03/16/22 07:18 BP 158/67 H 03/16/22 07:18 Pulse Ox 95 03/16/22 07:18 O2 Del Method 03/16/22 07:18 BMI result Body Mass Index 25.6 Const: General: comfortable and no acute distress Orientation/consciousness: patient oriented x3 HEENT: Other: Unremarkable Head: Yes normal to inspection Neck: Neck: Yes normal visual inspection Chest: Chest palpation & inspection: normal inspection of the chest Resp: Auscultation: clear to auscultation bilaterally Cardio: Palpation: normal PMI Heart sounds: S1 normal heart sound present, S2 normal heart sound present, no gallops, no murmurs and no rubs GI: Palpation (GI): Soft to palpation Back/Spine/Pelvis: Other: unremarkable Skin: General skin exam: no rashes or lesions noted Neuro: General: patient oriented x3 Extrem: General: Yes normal to inspection Psych: Mental Status: mental status grossly normal Objective Labs and Meds Result diagrams: 03/16/22 05:26 03/16/22 05:26 Lab results: Laboratory Results - last 24 hr 03/15/22 03/15/22 03/15/22 12:47 14:00 14:00 WBC 6.0 RBC 3.73 L Hgb 10.8 L Hct 32.8 L MCV 87.9 MCH 29.0 MCHC 32.9 RDW 13.1 Plt Count 260 MPV 8.5 L Immature Gran % (Auto) Neut % (Auto) Lymph % (Auto) [place] % (Auto) Eos % (Auto) Baso % (Auto) Lymph # (Auto) [place] # (Auto) Eos # (Auto) Baso # (Auto) Abs Immat Gran (auto) Absolute Neuts (auto) Absolute Nucleated RBC 0.000 Nucleated RBC % (auto) 0.0 Sodium 140 Potassium 4.3 Chloride 110 H Carbon Dioxide 19 L Anion Gap 15 BUN 14 Creatinine 0.90 Estim Creat Clear Calc 44.4 Estimated GFR > 60 POC Glucose 113 Random Glucose 143 H Fasting Glucose Calcium 8.3 L Total Bilirubin 0.3 AST 12 ALT 9 Alkaline Phosphatase 74 Troponin I High Sens Total Protein 5.7 L Albumin 3.7 03/15/22 03/15/22 03/16/22 14:00 18:34 05:26 WBC 6.0 RBC 3.75 L Hgb 11.0 L Hct 33.3 L MCV 88.8 MCH 29.3 MCHC 33.0 RDW 13.1 Plt Count 259 MPV 8.6 L Immature Gran % (Auto) 0.3 Neut % (Auto) 67.7 Lymph % (Auto) 18.[address] [place] % (Auto) 10.0 Eos % (Auto) 3.6 Baso % (Auto) 0.3 Lymph # (Auto) 1.[address] [place] # (Auto) 0.6 Eos # (Auto) 0.2 Baso # (Auto) 0.0 Abs Immat Gran (auto) 0.02 Absolute Neuts (auto) 4.1 Absolute Nucleated RBC 0.000 Nucleated RBC % (auto) 0.0 Sodium Potassium Chloride Carbon Dioxide Anion Gap BUN Creatinine Estim Creat Clear Calc Estimated GFR POC Glucose 99 Random Glucose Fasting Glucose Calcium Total Bilirubin AST ALT Alkaline Phosphatase Troponin I High Sens 5.9 Total Protein Albumin 03/16/22 03/16/22 05:26 07:16 WBC RBC Hgb Hct MCV MCH MCHC RDW Plt Count MPV Immature Gran % (Auto) Neut % (Auto) Lymph % (Auto) [place] % (Auto) Eos % (Auto) Baso % (Auto) Lymph # (Auto) [place] # (Auto) Eos # (Auto) Baso # (Auto) Abs Immat Gran (auto) Absolute Neuts (auto) Absolute Nucleated RBC Nucleated RBC % (auto) Sodium 139 Potassium 4.6 Chloride 108 Carbon Dioxide 22 Anion Gap 14 BUN 14 Creatinine 0.84 Estim Creat Clear Calc 47.5 Estimated GFR > 60 POC Glucose 92 Random Glucose Fasting Glucose 98 Calcium 8.5 Total Bilirubin 0.4 AST 12 ALT 8 Alkaline Phosphatase 69 Troponin I High Sens Total Protein 5.5 L Albumin 3.5 ECG Interpretation: EKG with sinus rhythm at 72/Min; nonspecific ST-T changes. In the repeat EKG, nonspecific ST-T changes seem improved. Assessment and Plan (1) Atherosclerotic cardiovascular disease: Status: Acute (2) Status post aorto-coronary artery bypass graft: Status: Acute Plan She is being treated for urinary tract infection. She does have a lot of cardiac as well as vascular issues but no active concerns at this time. Two sets of troponins are within normal limits. Echocardiogram shows inferior wall findings but they are likely chronic based on prior study. There was a question of tachycardia per Dr. Adkins but could not find any strips in the paper chart or telemetry or EMR. On review of telemetry, essentially has sinus rhythm only. Not clear if the episode described this is sinus tachycardia from infection. Any case nothing concerning on available strips in telemetry. Otherwise, from medication standpoint, continue Plavix. She is not on aspirin due to history of significant GI bleeding. Continue PPIs, sucralfate and other anti bleeding measures. Beta-blockers, statins may be continued without changes. Diabetic medications can be continued as well. Discussed with Dr. Adkins in detail. Total time spent including review of available outside cardiac records, counseling, coordination of care-70 minutes. Procedures Date of Service Date of Service: 03/16/22
[2022-03-16 11:43] LABS: Glucose, Whole Blood 120 mg/dL (60-115)
--- NOTE | 2022-03-16 12:10 | P.DS_ITS ---
DS: Providers Provider Date of Service: 03/16/22 Date of admission: 03/14/22 17:12 Date of discharge: 03/16/22 Primary care physician: Jimmy Awan MD Consults: 03/15/22 13:45 Consult to Cardiology Stat Consulting Provider: Steve Caraballo Reason for consultation: Tachycardia;CABG 05/2021 Has provider been notified: Yes DS: Diagnosis Discharge Diagnosis (1) UTI due to Klebsiella species: Status: Acute (2) Atherosclerotic cardiovascular disease: Status: Acute (3) Status post aorto-coronary artery bypass graft: Status: Acute DS: Summary Hospital Course Hospital Course: Patient comes to the emergency room complaining of nausea, weakness for 1 week.? Patient complaining of vomiting, no diarrhea.? Patient states that all of her symptoms started 7 days ago, she has been seen by urgent care.? Patient complaining of mild bilateral lower quadrant pain, denies any blood in the stool or in the vomit. In the ER, urine found to have active sediment which subsequently grew out Klebsiella sensitive to Levaquin. Initially patient given ceftriaxone without issue but apparently developed a tachycardia and some dizziness with nausea. No documented rhythm. Cardiology was consulted echo reviewed and no significant findings. At this time she is medically acceptable for discharge home Time Spent with Patient Time attestation: Total time spent providing and/or coordinating discharge services: Discharge coordination time: Greater than 30 minutes Quality: Safe Use of Opioids Does Pt have an Active Cancer Diagnosis on the Problem List?: No Quality: Stroke Does the patient have a stroke diagnosis?: No Physical Exam Vital Signs: Vital Signs: Last Vital Signs Temp 96.8 F 03/16/22 07:18 Pulse 65 03/16/22 07:18 Resp 17 03/16/22 07:18 BP 158/67 H 03/16/22 07:18 Pulse Ox 95 03/16/22 07:18 O2 Del Method 03/16/22 07:18 BMI result Body Mass Index 25.6 Const: General: comfortable and no acute distress Orientation/consciousness: patient oriented x3 HEENT: Head: Yes normal to inspection Neck: Neck: Yes normal visual inspection Chest: Chest palpation & inspection: normal inspection of the chest Resp: Auscultation: clear to auscultation bilaterally Cardio: Palpation: normal PMI Heart sounds: S1 normal heart sound present, S2 normal heart sound present, no gallops, no murmurs and no rubs GI: Palpation (GI): Soft to palpation Skin: General skin exam: no rashes or lesions noted Neuro: General: patient oriented x3 Extrem: General: Yes normal to inspection Psych: Mental Status: mental status grossly normal DS: Data Data Completed and Pending Labs on day of discharge: Laboratory Results - last 24 hr 03/15/22 03/15/22 03/15/22 12:47 14:00 14:00 WBC 6.0 RBC 3.73 L Hgb 10.8 L Hct 32.8 L MCV 87.9 MCH 29.0 MCHC 32.9 RDW 13.1 Plt Count 260 MPV 8.5 L Immature Gran % (Auto) Neut % (Auto) Lymph % (Auto) [place] % (Auto) Eos % (Auto) Baso % (Auto) Lymph # (Auto) [place] # (Auto) Eos # (Auto) Baso # (Auto) Abs Immat Gran (auto) Absolute Neuts (auto) Absolute Nucleated RBC 0.000 Nucleated RBC % (auto) 0.0 Sodium 140 Potassium 4.3 Chloride 110 H Carbon Dioxide 19 L Anion Gap 15 BUN 14 Creatinine 0.90 Estim Creat Clear Calc 44.4 Estimated GFR > 60 POC Glucose 113 Random Glucose 143 H Fasting Glucose Calcium 8.3 L Total Bilirubin 0.3 AST 12 ALT 9 Alkaline Phosphatase 74 Troponin I High Sens Total Protein 5.7 L Albumin 3.7 03/15/22 03/15/22 03/16/22 14:00 18:34 05:26 WBC 6.0 RBC 3.75 L Hgb 11.0 L Hct 33.3 L MCV 88.8 MCH 29.3 MCHC 33.0 RDW 13.1 Plt Count 259 MPV 8.6 L Immature Gran % (Auto) 0.3 Neut % (Auto) 67.7 Lymph % (Auto) 18.1 L [place] % (Auto) 10.0 Eos % (Auto) 3.6 Baso % (Auto) 0.3 Lymph # (Auto) 1.1 L [place] # (Auto) 0.6 Eos # (Auto) 0.2 Baso # (Auto) 0.0 Abs Immat Gran (auto) 0.02 Absolute Neuts (auto) 4.1 Absolute Nucleated RBC 0.000 Nucleated RBC % (auto) 0.0 Sodium Potassium Chloride Carbon Dioxide Anion Gap BUN Creatinine Estim Creat Clear Calc Estimated GFR POC Glucose 99 Random Glucose Fasting Glucose Calcium Total Bilirubin AST ALT Alkaline Phosphatase Troponin I High Sens 5.9 Total Protein Albumin 03/16/22 03/16/22 03/16/22 05:26 07:16 11:36 WBC RBC Hgb Hct MCV MCH MCHC RDW Plt Count MPV Immature Gran % (Auto) Neut % (Auto) Lymph % (Auto) [place] % (Auto) Eos % (Auto) Baso % (Auto) Lymph # (Auto) [place] # (Auto) Eos # (Auto) Baso # (Auto) Abs Immat Gran (auto) Absolute Neuts (auto) Absolute Nucleated RBC Nucleated RBC % (auto) Sodium 139 Potassium 4.6 Chloride 108 Carbon Dioxide 22 Anion Gap 14 BUN 14 Creatinine 0.84 Estim Creat Clear Calc 47.5 Estimated GFR > 60 POC Glucose 92 120 H Random Glucose Fasting Glucose 98 Calcium 8.5 Total Bilirubin 0.4 AST 12 ALT 8 Alkaline Phosphatase 69 Troponin I High Sens Total Protein 5.5 L Albumin 3.5 Preliminary micro results at discharge 03/14/22 18:31 Blood Culture - Preliminary Blood - Venous No growth after 24 hours. 03/14/22 18:31 Blood Culture - Preliminary Blood - Venous No growth after 24 hours. Discharge Plan Discharge Patient Disposition: Home, Self-Care Discharge Diagnosis: Klebsiella UTI Referrals: Jimmy Awan MD [Primary Care Provider] - 1 Week Discharge Medications: New levofloxacin 250 mg tablet 250 mg PO DAILY Qty: 7 0RF Continued albuterol sulfate 2.5 mg /3 mL (0.083 %) solution for nebulization 2.5 mg inhalation QID PRN (Reason: shortness of breath or wheezing) Qty: 180 0RF metformin 1,000 mg tablet 1,000 mg PO BID Qty: 180 0RF loratadine 10 mg tablet 10 mg PO DAILY PRN (Reason: allergy symptoms) 90 Days Qty: 90 3RF metoprolol succinate 50 mg tablet extended release 24 hr 50 mg PO DAILY Qty: 90 0RF sucralfate 1 gram tablet 1 tab PO BEDTIME glyburide 2.5 mg tablet 2.5 mg PO DAILY clopidogrel 75 mg tablet 75 mg PO DAILY 90 Days Qty: 90 3RF atorvastatin 80 mg tablet 80 mg PO BEDTIME latanoprost 0.005 % drops 1 drp ophthalmic (eye) BEDTIME nitroglycerin 0.4 mg tablet, sublingual 0.4 mg sublingual DAILY PRN (Reason: Angina) triamcinolone acetonide 0.1 % lotion 1 appl topical BID Qty: 60 3RF ondansetron 4 mg tablet,disintegrating 4 mg PO Q8H PRN (Reason: nausea and vomiting) 15 Days Qty: 45 3RF albuterol sulfate 90 mcg/actuation HFA aerosol inhaler 2 puff inhalation Q6H PRN (Reason: shortness of breath or wheezing) 30 Days Qty: 8.5 5RF pantoprazole 40 mg tablet,delayed release (DR/EC) 40 mg PO BID Qty: 60 4RF Discontinued nitrofurantoin macrocrystal [Macrodantin] 100 mg capsule 100 mg PO DAILY Discharge Orders: Discharge Order (Routine); Ordered 03/16/22 Ordered By: Bacilio Adkins Diet: Advance to usual diet Activity on Discharge: As tolerated Stand Alone Forms: Patient Portal Discharge page Care Plan Goals: Resume all previous meds as before hospital Health Concerns: Complete course of Levaquin 250 mg daily for 7 days Plan of Treatment: Follow-up with your PCP in 2 weeks Assessment: See discharge summary
== END 2022-03-16 13:24 | disposition home or self-care (01) | DRG 690 ==
LOC: HO.ED 16:41 → HO.EDOVER 17:21 → HO.S3 03-15 09:59 → HO.EDOVER 03-15 10:48 → HO.S3 03-15 16:52
PROVIDERS: Admitting Provider Hospitalist; Emergency Provider Emergency Medicine; PCP Internal Medicine; Visit Provider Hospitalist
DX: N39.0 Urinary tract infection, site not specified (principal); J45.20 Mild intermittent asthma, uncomplicated; E11.42 Type 2 diabetes mellitus with diabetic polyneuropathy; K21.9 Gastro-esophageal reflux disease without esophagitis; Z87.440 Personal history of urinary (tract) infections; I25.10 Atherosclerotic heart disease of native coronary artery without angina pectoris; I12.9 Hypertensive chronic kidney disease with stage 1 through stage 4 chronic kidney disease, or unspecified chronic kidney disease; N18.2 Chronic kidney disease, stage 2 (mild); E11.22 Type 2 diabetes mellitus with diabetic chronic kidney disease; Z95.1 Presence of aortocoronary bypass graft; Z87.891 Personal history of nicotine dependence; Z88.0 Allergy status to penicillin; Z88.8 Allergy status to other drugs, medicaments and biological substances; Z79.02 Long term (current) use of antithrombotics/antiplatelets; Z79.84 Long term (current) use of oral hypoglycemic drugs; Z79.899 Other long term (current) drug therapy
CPT/HCPCS: 36415; 80048; 80053; 81001; 82947; 83605; 84484; 85025; 85027; 87040; 87086; 87088; 87186; 87635; 93005; 93306; 96361; 96365; 96375; 99285; J0696; J2405; Q9957

== ENCOUNTER 2022-03-22 15:22 | Outpatient (REF) | payer MEDICARE, OTHER, SELFPAY ==
--- NOTE | ~2022-03-22 | US_ITS ---
EXAMINATION: US PELVIS CLINICAL INFORMATION: Thickened endometrium noted on outside CT. Age 81. COMPARISON: Report CTA abdomen and pelvis 12/02/2021 ([facility]). TECHNIQUE: Ultrasound of the pelvis is performed using both transabdominal and transvaginal transducers along with Doppler. Transvaginal imaging is performed due to inadequate visualization transabdominally. FINDINGS: Uterus: The uterus is anteverted and measures 9.7 x 3.4 x 5.1 cm. The double wall endometrial thickness is thickened for postmenopausal patient, measuring 7-8 mm. No fluid in endometrial cavity. Uterus is smooth in contour. There is no visible fibroid. There are scattered specular echoes without shadowing possibly related to interface with myometrial vasculature. Adnexa: Neither ovary is visualized with certainty. There is no visible adnexal mass or pelvic ascites. US/US pelvic and transvaginal IMPRESSION: -Thickening double wall endometrium for a postmenopausal patient, 7-8 mm. -No fluid in the endometrial cavity. No visible fibroid. -Neither ovary identified with certainty. No visible adnexal mass or pelvic ascites.
== END 2022-03-22 15:23 | disposition home or self-care (01) ==
LOC: HO.US 15:22
PROVIDERS: Visit Provider Internal Medicine
DX: R93.89 Abnormal findings on diagnostic imaging of other specified body structures (principal)
CPT/HCPCS: 76830; 76856

== ENCOUNTER 2022-04-17 09:57 | Outpatient (REF) | payer MEDICARE, OTHER, SELFPAY ==
[2022-04-17 10:29] LABS: MANUAL DIFF FLAG NO
[2022-04-17 10:39] LABS: Basophils Percent Auto 0.4 % (0-2); Eosinophils Absolute Auto 0.2 X10*3/uL (0.0-0.4); Hematocrit 32.9 % (37.0-47.0); Hemoglobin 10.6 g/dl (12.0-16.0); Imm Gran Abs Auto 0.02 X10*3/uL (0.00-0.03); Imm Gran Pct Auto 0.3 % (0.0-0.4); Lymphocytes Absolute Auto 0.9 X10*3/uL (1.2-4.9); Lymphocytes Percent Auto 12.1 % (20-40); Mean Corpuscular HGB Conc 32.2 g/dl (31.0-35.0); Mean Corpuscular Hemoglobin 29.2 pg (27.0-33.0); Mean Corpuscular Volume 90.6 fL (80.0-98.0); Mean Platelet Volume 8.8 fL (9.4-12.3); Monocytes Absolute Auto 0.6 X10*3/uL (0.1-1.2); Monocytes Percent Auto 7.8 % (2-11); Neutrophils Absolute Auto 5.6 x10*3/uL (2.0-8.3); Neutrophils Percent Auto 76.4 % (45-73); Platelet Count 283 X10*3/uL (160-400); Red Blood Count 3.63 X10*6/uL (4.20-5.50); Red Cell Distribution Width 13.8 % (11.0-16.0); White Blood Count 7.3 X10*3/uL (4.8-10.8)
[2022-04-17 11:20] LABS: Alanine Aminotransferase 13 U/L (0-31); Albumin Level 3.9 g/dL (3.5-5.0); Alkaline Phosphatase 82 U/L (39-117); Anion Gap 16 (12-20); Aspartate Amino Transferase 16 U/L (5-31); Bilirubin Total 0.5 mg/dL (0.0-1.0); Blood Urea Nitrogen 27 mg/dL (9-16); Calcium 8.7 mg/dL (8.4-10.2); Carbon Dioxide 22 mmol/L (22-29); Chloride 108 mmol/L (96-108); Cholesterol 145 mg/dL; Estimated Glomerular Filt Rate 45; Glucose Fasting 129 mg/dL (60-99); HDL Cholesterol 42 mg/dL; LDL Cholesterol Calculated 80 mg/dl; Potassium 4.8 mmol/L (3.3-5.1); Sodium 141 mmol/L (135-145); Triglycerides 118 mg/dL
[2022-04-17 11:30] LABS: TSH reflex Free T4 2.54 uIU/mL (0.32-4.0); Vitamin D 25-OH Total 20.4 ng/mL (>30)
[2022-04-17 11:39] LABS: Estimated Average Glucose 114 mg/dL; Hemoglobin A1c % 5.6 %
[2022-04-17 13:54] LABS: Appearance Urine Turbid; Color Urine Yellow; Glucose Urine UA Negative (Negative); Leukocyte Esterase Urine Large (3+) (Negative); Nitrite Urine Negative (Negative); PH 5.5 (5.0-8.0); Urine Blood Small (1+) (Negative); Urine Ketones Negative (Negative); Urine Protein 30 (1+) mg/dL (Neg-Trace)
[2022-04-17 14:26] LABS: Bacteria Urine 4+ (None Seen); Hyaline Casts Urine 0-2 /LPF (0-2); UACC Culture Trigger YES; WBC Urine >50 /HPF (0-5)
[2022-04-17 14:41] LABS: Creatinine Urine 134.13 mg/dL; Microalbum/Creatinine Ratio Ur 62.6 ug/mg cr
== END 2022-04-17 09:58 | disposition home or self-care (01) ==
LOC: HO.10HDL 09:57
PROVIDERS: Visit Provider Internal Medicine
DX: E78.00 Pure hypercholesterolemia, unspecified (principal); I10 Essential (primary) hypertension; E55.9 Vitamin D deficiency, unspecified; E11.9 Type 2 diabetes mellitus without complications
CPT/HCPCS: 36415; 80053; 80061; 81001; 82043; 82306; 83036; 84443; 85025; 87086

== ENCOUNTER → 2022-07-04 11:32 | Outpatient (BNVA) | payer MEDICARE, OTHER, SELFPAY | PROVIDERS: PCP Internal Medicine; Visit Provider Nurse Practitioner Family | DX: D64.9 Anemia, unspecified (principal); K21.9 Gastro-esophageal reflux disease without esophagitis | CPT/HCPCS: 99212 ==

== ENCOUNTER 2022-08-23 08:30 | Outpatient (REF) | payer MEDICARE, OTHER, SELFPAY ==
[2022-08-23 10:21] LABS: MANUAL DIFF FLAG NO
[2022-08-23 10:24] LABS: Appearance Urine Cloudy; Color Urine Yellow; Glucose Urine UA Negative (Negative); Leukocyte Esterase Urine Large (3+) (Negative); Nitrite Urine Negative (Negative); Specific Gravity - Urine 1.015 (1.005-1.025); UMIC TRIGGER UACC YES; Urine Blood Trace (Negative); Urine Ketones Negative (Negative); Urine Protein Negative (Neg-Trace)
[2022-08-23 10:26] LABS: Basophils Percent Auto 0.4 % (0-2); Eosinophils Absolute Auto 0.2 X10*3/uL (0.0-0.4); Eosinophils Percent Auto 2.1 % (0-4); Hematocrit 33.4 % (37.0-47.0); Hemoglobin 10.6 g/dl (12.0-16.0); Imm Gran Abs Auto 0.03 X10*3/uL (0.00-0.03); Imm Gran Pct Auto 0.4 % (0.0-0.4); Lymphocytes Absolute Auto 0.7 X10*3/uL (1.2-4.9); Lymphocytes Percent Auto 8.7 % (20-40); Mean Corpuscular HGB Conc 31.7 g/dl (31.0-35.0); Mean Corpuscular Hemoglobin 29.5 pg (27.0-33.0); Mean Platelet Volume 8.9 fL (9.4-12.3); Monocytes Absolute Auto 0.4 X10*3/uL (0.1-1.2); Monocytes Percent Auto 5.6 % (2-11); Neutrophils Absolute Auto 6.2 x10*3/uL (2.0-8.3); Neutrophils Percent Auto 82.8 % (45-73); Platelet Count 261 X10*3/uL (160-400); Red Blood Count 3.59 X10*6/uL (4.20-5.50); Red Cell Distribution Width 13.2 % (11.0-16.0); White Blood Count 7.5 X10*3/uL (4.8-10.8)
[2022-08-23 10:30] LABS: Bacteria Urine 4+ (None Seen); RBC Urine 0-2 /HPF (0-2); UACC Culture Trigger YES; WBC Urine >50 /HPF (0-5)
[2022-08-23 10:35] LABS: Estimated Average Glucose 114 mg/dL; Hemoglobin A1c % 5.6 %
[2022-08-23 10:41] LABS: Alanine Aminotransferase 12 U/L (0-31); Albumin Level 3.8 g/dL (3.5-5.0); Alkaline Phosphatase 70 U/L (39-117); Anion Gap 11 (12-20); Aspartate Amino Transferase 15 U/L (5-31); Bilirubin Total 0.5 mg/dL (0.0-1.0); Blood Urea Nitrogen 28 mg/dL (9-16); Calcium 8.9 mg/dL (8.4-10.2); Carbon Dioxide 27 mmol/L (22-29); Chloride 108 mmol/L (96-108); Cholesterol 130 mg/dL; Estimated Glomerular Filt Rate 45; Glucose Fasting 132 mg/dL (60-99); HDL Cholesterol 42 mg/dL; LDL Cholesterol Calculated 74 mg/dl; Potassium 4.7 mmol/L (3.3-5.1); Sodium 141 mmol/L (135-145); Total Protein 5.7 g/dL (6.5-8.0); Triglycerides 72 mg/dL
[2022-08-23 10:49] LABS: Creatinine Urine 63.02 mg/dL; Microalbum/Creatinine Ratio Ur 53.9 ug/mg cr
[2022-08-23 11:00] LABS: TSH reflex Free T4 2.44 uIU/mL (0.32-4.0); Vitamin D 25-OH Total 11.9 ng/mL (>30)
== END 2022-08-23 08:31 | disposition home or self-care (01) ==
LOC: HO.10HDL 08:30
PROVIDERS: Visit Provider Internal Medicine
DX: E78.00 Pure hypercholesterolemia, unspecified (principal); E55.9 Vitamin D deficiency, unspecified; E11.9 Type 2 diabetes mellitus without complications; I10 Essential (primary) hypertension
CPT/HCPCS: 36415; 80053; 80061; 81001; 82043; 82306; 83036; 84443; 85025; 87086

== ENCOUNTER → 2022-10-04 09:03 | Outpatient (BNVA) | payer MEDICARE, OTHER, SELFPAY | PROVIDERS: PCP Internal Medicine; Referring Provider Internal Medicine; Visit Provider Nurse Practitioner Family | DX: D64.9 Anemia, unspecified (principal); K21.9 Gastro-esophageal reflux disease without esophagitis; K52.9 Noninfective gastroenteritis and colitis, unspecified | CPT/HCPCS: 99212 ==

== ENCOUNTER 2022-12-11 07:10 | Outpatient (REF) | payer MEDICARE, OTHER, SELFPAY ==
[2022-12-11 07:31] LABS: MANUAL DIFF FLAG NO
[2022-12-11 08:03] LABS: Basophils Percent Auto 0.5 % (0-2); Eosinophils Absolute Auto 0.2 X10*3/uL (0.0-0.4); Eosinophils Percent Auto 3.7 % (0-4); Hematocrit 34.3 % (37.0-47.0); Hemoglobin 10.8 g/dl (12.0-16.0); Imm Gran Abs Auto 0.02 X10*3/uL (0.00-0.03); Imm Gran Pct Auto 0.4 % (0.0-0.4); Lymphocytes Absolute Auto 0.9 X10*3/uL (1.2-4.9); Lymphocytes Percent Auto 15.3 % (20-40); Mean Corpuscular HGB Conc 31.5 g/dl (31.0-35.0); Mean Corpuscular Hemoglobin 29.2 pg (27.0-33.0); Mean Corpuscular Volume 92.7 fL (80.0-98.0); Mean Platelet Volume 8.8 fL (9.4-12.3); Monocytes Absolute Auto 0.5 X10*3/uL (0.1-1.2); Monocytes Percent Auto 8.8 % (2-11); Neutrophils Absolute Auto 4.1 x10*3/uL (2.0-8.3); Neutrophils Percent Auto 71.3 % (45-73); Platelet Count 275 X10*3/uL (160-400); Red Cell Distribution Width 13.4 % (11.0-16.0); White Blood Count 5.7 X10*3/uL (4.8-10.8)
[2022-12-11 08:09] LABS: Estimated Average Glucose 123 mg/dL; Hemoglobin A1c % 5.9 %
[2022-12-11 08:42] LABS: Alanine Aminotransferase 13 U/L (0-31); Albumin Level 3.8 g/dL (3.5-5.0); Alkaline Phosphatase 71 U/L (39-117); Anion Gap 13 (12-20); Aspartate Amino Transferase 15 U/L (5-31); Bilirubin Total 0.6 mg/dL (0.0-1.0); Blood Urea Nitrogen 34 mg/dL (9-16); Carbon Dioxide 23 mmol/L (22-29); Chloride 111 mmol/L (96-108); Cholesterol 143 mg/dL; Estimated Glomerular Filt Rate 38; Glucose Fasting 88 mg/dL (60-99); HDL Cholesterol 37 mg/dL; LDL Cholesterol Calculated 87 mg/dl; Potassium 5.2 mmol/L (3.3-5.1); Sodium 142 mmol/L (135-145); Total Protein 5.7 g/dL (6.5-8.0); Triglycerides 96 mg/dL
[2022-12-11 08:49] LABS: TSH reflex Free T4 3.85 uIU/mL (0.32-4.0); Vitamin D 25-OH Total 50.6 ng/mL (>30)
[2022-12-11 08:52] LABS: Appearance Urine Turbid; Color Urine Yellow; Glucose Urine UA Negative (Negative); Leukocyte Esterase Urine Large (3+) (Negative); Nitrite Urine Negative (Negative); PH 5.5 (5.0-9.0); UMIC TRIGGER UACC YES; Urine Blood Trace (Negative); Urine Ketones Negative (Negative); Urine Protein 30 (1+) mg/dL (Neg-Trace)
[2022-12-11 08:55] LABS: Bacteria Urine 4+ (None Seen); Hyaline Casts Urine 0-2 /LPF (0-2); RBC Urine 0-2 /HPF (0-2); UACC Culture Trigger YES; WBC Urine >50 /HPF (0-5)
[2022-12-11 09:12] LABS: Creatinine Urine 79.36 mg/dL; Microalbum/Creatinine Ratio Ur 119.7 ug/mg cr
== END 2022-12-11 07:11 | disposition home or self-care (01) ==
LOC: HO.LAB 07:10
PROVIDERS: PCP Internal Medicine; Visit Provider Internal Medicine
DX: E11.9 Type 2 diabetes mellitus without complications (principal); I10 Essential (primary) hypertension; E78.00 Pure hypercholesterolemia, unspecified; E55.9 Vitamin D deficiency, unspecified; R30.0 Dysuria
CPT/HCPCS: 36415; 80053; 80061; 81001; 82043; 82306; 83036; 84443; 85025; 87086; 87088; 87186

== ENCOUNTER → 2022-12-27 09:16 | Outpatient (BNVA) | payer MEDICARE, OTHER, SELFPAY | PROVIDERS: PCP Internal Medicine; Visit Provider Nurse Practitioner Family | DX: D64.9 Anemia, unspecified (principal); K21.9 Gastro-esophageal reflux disease without esophagitis; K52.9 Noninfective gastroenteritis and colitis, unspecified | CPT/HCPCS: 99212 ==

== ENCOUNTER 2023-04-03 08:39 | Outpatient (AMB) | payer MEDICARE, OTHER, SELFPAY ==
[2023-04-03 08:42] VITALS: BP 135/55; PULSE 59; BMI 28.4
--- NOTE | 2023-04-03 08:42 | A.OFFVIS_ITS ---
Intake Vital Signs 04/03/23 08:42 Height 5 ft 2 in Weight 155 lb 3.287 oz BMI 28.4 BP 135/55 L Blood Pressure Location Rt brachial Position Sitting Pulse 59 Intake Visit Reasons: 3 month follow up Intake Note: Jermain presents in office as a est.patient for a 3month f/u Anemia & GERD CC: Patient reports GERD is out of control, diarrhea, occasional blood w/BMs, nausea. Pt denies any other GI Issues. 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 And Alcohol Treatment Specialist Required: No Accompanied by: Daughter Allergies doxycycline Allergy (Mild, Verified 04/03/23 08:46) Vomiting levetiracetam [From Keppra] Allergy (Mild, Verified 04/03/23 08:46) Vomiting amoxicillin Allergy (Unknown, Verified 04/03/23 08:46) rash Penicillins Allergy (Unknown, Verified 04/03/23 08:46) rash prednisone Allergy (Unknown, Verified 04/03/23 08:46) rash ceftriaxone [From Rocephin] Allergy (Verified 04/03/23 08:46) Rash milk Allergy (Verified 04/03/23 08:46) Unknown omeprazole Adverse Reaction (Unknown, Verified 04/03/23 08:46) worsening heartburn ranitidine Adverse Reaction (Unknown, Verified 04/03/23 08:46) worsening heartburn, abdominal pain (ONLY to generic) HPI 3 month follow up HPI Details LAST VISIT Anemia Discussed with patient food rich in iron. List of food Rich in iron given to patient. Patient will get [id number] high absorbent none constipating Iron Bis-Glycinate. Patient will let us know if she is unable to tolerated. ? Education provided to patient on iron rich diet. GERD (gastroesophageal reflux disease) Occasional GERD, for the most part patient reports that is controlled. Continue pantoprazole and sucralfate. Discussed with patient avoiding dietary triggers and late night snacking. Staying upright for minimal 3 hours after meals discussed with her. Postprandial diarrhea Occasional postprandial diarrhea. Discussed with patient avoiding food that causes her having no symptoms. Patient states that for the most part she is having normal bowel movements. I will see patient in 3 months, sooner on as needed basis. Patient is agreeable to this plan and verbalizes understanding of instructions. She was given the opportunity to ask questions and all questions answered. TODAY'S VISIT Patient is here today follow-up. Patient is accompanied by her daughter. Patient reports that she has been feeling well except last week and patient 8 home may spaghetti sauce with meat balls and pizza and had epigastric discomfort with acid reflux. Patient also reports dyspepsia without dysphagia or odynophagia. Patient continues to have postprandial loose stools depending on what she eats. Patient denies melena, hematochezia, unintentional weight loss or ribbon like stools. Patient does report occasional nausea if she forgets to take sucralfate couple nights in a row is patient denies up vomiting. Patient was encouraged to go and get blood work done before she sees her PCP [facility] Medical History Allergic rhinitis Anemia Asthma Atrophic vaginitis Benign essential hypertension Carotid atherosclerosis Chronic kidney disease, stage III (moderate) Coronary artery disease (~06/09/21) Diabetic polyneuropathy associated with type 2 diabetes mellitus GERD without esophagitis Hearing impairment Hyperkalemia Meralgia paresthetica of right side Orbital fracture Overweight (BMI 25.0-29.9) Peripheral vascular disease Pure hypercholesterolemia Recurrent urinary tract infection Seizure Type 2 diabetes mellitus with diabetic polyneuropathy Upper GI bleeding Vitamin D deficiency Surgical History History of cardiac catheterization History of endoscopy History of laparoscopic cholecystectomy History of left-sided carotid endarterectomy History of right-sided carotid endarterectomy Hx of colonoscopy S/P CABG x 4 (~06/09/21) S/P LASIK surgery Family History Father CVD (cardiovascular disease) Mother Stroke Brother CVD (cardiovascular disease) Esophageal cancer Social History Household Members: Children Housing: House Are you a primary gericare aide to a significant other at home: No Do you presently have visiting nurse or other home services: No Alcohol intake: never Patient Tobacco Use Status: Former Tobacco user Quit Date: 34 years ago Tobacco use type: Cigarette e-Cigarette/Vaping Use: Never Used Second Hand Smoke Exposure: No Advance Directives Date on File: 01/11/22 service: No Current occupational status: retired 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 Cognitive needs: No Hearing needs: No Vision needs: No Review of Systems Const Denies weight gain and Denies weight loss ENT Reports no additional complaints, Denies dysphagia and Denies odynophagia Card Reports no additional complaints Resp Reports no additional complaints GI Denies abdominal pain, Denies belching, Denies melena, Denies bloating, Denies change in bowel habits, Denies dysphagia, Denies excessive flatus, Denies dyspepsia, Reports heartburn, Denies diarrhea, Reports loose stools, Reports nausea (Occasional), Denies odynophagia and Denies vomiting Reports no additional complaints Musc Reports no additional complaints Neuro Reports no additional complaints Psych Reports no additional complaints Endo Reports no additional complaints Physical Exam Vital Signs: Last Vital Signs Pulse 59 04/03/23 08:42 BP 135/55 L 04/03/23 08:42 BMI result Body Mass Index 28.4 Const General: healthy appearing, no acute distress and well developed Nutritional Appearance: well nourished Orientation/consciousness: patient oriented x3 HEENT Head: Yes normal to inspection, Yes normocephalic and Yes atraumatic Face and sinus: Yes normal facial exam Mouth: Normal oral and palatal mucosa present Throat: Yes posterior oropharynx normal, Yes tonsils normal and Yes uvula midline Eyes General: appearance normal, both eyes and all related structures Neck Neck: Yes normal visual inspection, Yes full ROM and Yes trachea midline Thyroid: Thyroid normal Resp Effort & Inspection: normal respiratory effort, able to speak in complete sentences, no tracheal deviation and symmetric chest movement Auscultation: clear to auscultation bilaterally Cardio Rate: regular rate Heart sounds: S1 normal heart sound present and S2 normal heart sound present GI Inspection: Yes normal to inspection and No distended Palpation (GI): Soft to palpation, not firm, nontender and No hepatosplenomegaly present Auscultation: normal bowel sounds General: Yes no CVA tenderness Back/Spine/Pelvis Back: no CVA tenderness Skin General skin exam: elasticity normal, turgor normal and dry skin Neuro General: patient oriented x3 Psych Appearance: grossly normal Mental Status: mental status grossly normal Speech and movement: Normal speech and movement present Assessment & Plan Assessment & Plan (1) Anemia: Code(s): D64.9 - Anemia, unspecified Qualifiers: Anemia type: unspecified type Qualified Code(s): D64.9 - Anemia, unspecified Plan: Patient unable to take iron. She tried multiple different brands and she reports to have epigastric discomfort when taking it. Patient is eating high iron food (2) GERD (gastroesophageal reflux disease): Code(s): K21.9 - Gastro-esophageal reflux disease without esophagitis Qualifiers: Esophagitis presence: esophagitis presence not specified Qualified Code(s): K21.9 - Gastro-esophageal reflux disease without esophagitis Plan: Continue pantoprazole in the morning and sucralfate at bedtime. Patient was encouraged to avoid dietary triggers. Avoid anything with with tomato sauce, fried onions. Avoid late night snacking. Staying upright for minimum 3 hours after meals discussed with patient. (3) Postprandial diarrhea: Code(s): K52.9 - Noninfective gastroenteritis and colitis, unspecified Plan: Postprandial loose stools. Patient was encouraged to stay away from food that is high in fat. Patient will take Citrucel every morning with full glass of water to help her bulk her stools. I will see her in 6 months, sooner on as needed basis. Patient is agreeable to this plan and verbalizes understanding of instructions. She was given the opportunity to ask questions and all questions answered the Orders: Orders Vitamin B12 and Folate Today R19.7 - Diarrhea, unspecified Ferritin Today R74.8 - Abnormal levels of other serum enzymes IRON PROFILE Today D64.9 - Anemia, unspecified Medications: New methylcellulose (laxative) (Citrucel) take it with full glass of water 500 mg PO DAILY 90 tabs 2RF K59.00 - Constipation, unspecified Refilled pantoprazole 40 mg PO DAILY 90 tabs 3RF K21.9 - Gastro-esophageal reflux dise ase without esophagitis sucralfate 1 g PO BEDTIME 30 days 90 tabs 3RF Coding Level of Care Code Est Pt Level 4 (84830) Diagnoses Anemia D64.9 Anemia type: unspecified type GERD (gastroesophageal reflux disease) K21.9 Esophagitis presence: esophagitis presence not specified Postprandial diarrhea K52.9 Time Spent (min) 35 Comment The 20 minutes spent with patient and additional 15 minutes spent reviewing her records
== END 2023-04-03 09:14 | disposition home or self-care (01) ==
PROVIDERS: PCP Internal Medicine; Visit Provider Nurse Practitioner Family
DX: D64.9 Anemia, unspecified (principal); K21.9 Gastro-esophageal reflux disease without esophagitis; K52.9 Noninfective gastroenteritis and colitis, unspecified
CPT/HCPCS: 99214

== ENCOUNTER → 2023-04-03 08:39 | Outpatient (BNVA) | payer MEDICARE, OTHER, SELFPAY | PROVIDERS: PCP Internal Medicine; Visit Provider Nurse Practitioner Family | DX: D64.9 Anemia, unspecified (principal); K21.9 Gastro-esophageal reflux disease without esophagitis; K52.9 Noninfective gastroenteritis and colitis, unspecified; Z79.899 Other long term (current) drug therapy | CPT/HCPCS: 99212 ==

== ENCOUNTER 2023-04-04 07:15 | Outpatient (REF) | payer MEDICARE, OTHER, SELFPAY ==
[2023-04-04 07:48] LABS: MANUAL DIFF FLAG NO
[2023-04-04 08:06] LABS: Basophils Percent Auto 0.7 % (0-2); Eosinophils Absolute Auto 0.2 X10*3/uL (0.0-0.4); Hematocrit 34.7 % (37.0-47.0); Imm Gran Abs Auto 0.02 X10*3/uL (0.00-0.03); Imm Gran Pct Auto 0.3 % (0.0-0.4); Lymphocytes Percent Auto 15.9 % (20-40); Mean Corpuscular HGB Conc 31.7 g/dl (31.0-35.0); Mean Corpuscular Hemoglobin 28.9 pg (27.0-33.0); Mean Corpuscular Volume 91.1 fL (80.0-98.0); Mean Platelet Volume 8.7 fL (9.4-12.3); Monocytes Absolute Auto 0.6 X10*3/uL (0.1-1.2); Monocytes Percent Auto 9.3 % (2-11); Neutrophils Absolute Auto 4.2 x10*3/uL (2.0-8.3); Neutrophils Percent Auto 69.8 % (45-73); Platelet Count 278 X10*3/uL (160-400); Red Blood Count 3.81 X10*6/uL (4.20-5.50); Red Cell Distribution Width 13.4 % (11.0-16.0); White Blood Count 6.1 X10*3/uL (4.8-10.8)
[2023-04-04 08:14] LABS: Estimated Average Glucose 123 mg/dL; Hemoglobin A1c % 5.9 %
[2023-04-04 08:49] LABS: Alanine Aminotransferase 12 U/L (0-31); Alkaline Phosphatase 77 U/L (39-117); Anion Gap 14 (12-20); Aspartate Amino Transferase 16 U/L (5-31); Bilirubin Total 0.5 mg/dL (0.0-1.0); Blood Urea Nitrogen 37 mg/dL (9-16); Calcium 8.9 mg/dL (8.4-10.2); Carbon Dioxide 22 mmol/L (22-29); Chloride 111 mmol/L (96-108); Cholesterol 143 mg/dL; Estimated Glomerular Filt Rate 35; Glucose Fasting 113 mg/dL (60-99); HDL Cholesterol 38 mg/dL; Iron 82 mcg/dL (30-160); LDL Cholesterol Calculated 85 mg/dl; Percent Iron Saturation 28 % (15-50); Potassium 4.9 mmol/L (3.3-5.1); Sodium 142 mmol/L (135-145); Total Iron Binding Capacity 297 mcg/dL (228-428); Total Protein 6.7 g/dL (6.5-8.0); Triglycerides 102 mg/dL; Unsaturated Iron Binding 215 ug/dL
[2023-04-04 08:53] LABS: Vitamin D 25-OH Total 61.8 ng/mL (>30)
[2023-04-04 08:58] LABS: Ferritin 25 ng/mL (10-250)
[2023-04-04 09:03] LABS: Folate 7.1 ng/mL (> or = 4.0); Vitamin B12 571 pg/mL (200-900)
[2023-04-04 10:43] LABS: Appearance Urine Turbid; Color Urine Yellow; Glucose Urine UA Negative (Negative); Leukocyte Esterase Urine Large (3+) (Negative); Nitrite Urine Negative (Negative); PH 5.5 (5.0-9.0); Specific Gravity - Urine 1.015 (1.005-1.025); UMIC TRIGGER UACC YES; Urine Blood Small (1+) (Negative); Urine Ketones Negative (Negative); Urine Protein 30 (1+) mg/dL (Neg-Trace)
[2023-04-04 10:55] LABS: Bacteria Urine 4+ (None Seen); Hyaline Casts Urine 0-2 /LPF (0-2); RBC Urine 0-2 /HPF (0-2); UACC Culture Trigger YES; WBC Clumps Urine Present; WBC Urine >50 /HPF (0-5)
[2023-04-04 11:10] LABS: Creatinine Urine 77.58 mg/dL; Microalbum/Creatinine Ratio Ur 46.4 ug/mg cr
== END 2023-04-04 07:16 | disposition home or self-care (01) ==
LOC: HO.LAB 07:15
PROVIDERS: Absent Provider Nurse Practitioner Family; PCP Internal Medicine; Visit Provider Internal Medicine
DX: I10 Essential (primary) hypertension (principal); E78.00 Pure hypercholesterolemia, unspecified; R74.8 Abnormal levels of other serum enzymes; E11.9 Type 2 diabetes mellitus without complications; D64.9 Anemia, unspecified; R19.7 Diarrhea, unspecified; E55.9 Vitamin D deficiency, unspecified; R30.0 Dysuria
CPT/HCPCS: 36415; 80053; 80061; 81001; 82043; 82306; 82607; 82728; 82746; 83036; 83540; 84443; 85025; 87086; 87088; 87186

== ENCOUNTER 2023-04-05 10:47 | Outpatient (AMB) | payer MEDICARE, OTHER, SELFPAY ==
[2023-04-05 10:51] VITALS: BP 116/76; PULSE 67; O2SAT 97; BMI 28.5
--- NOTE | 2023-04-05 10:51 | MHC.PC.OV ---
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: No Accompanied by: Self / Same As Patient Allergies doxycycline Allergy (Mild, Verified 04/05/23 11:09) Vomiting levetiracetam [From Keppra] Allergy (Mild, Verified 04/05/23 11:09) Vomiting amoxicillin Allergy (Unknown, Verified 04/05/23 11:09) rash Penicillins Allergy (Unknown, Verified 04/05/23 11:09) rash prednisone Allergy (Unknown, Verified 04/05/23 11:09) rash ceftriaxone [From Rocephin] Allergy (Verified 04/05/23 11:09) Rash milk Allergy (Verified 04/05/23 11:09) Unknown omeprazole Adverse Reaction (Unknown, Verified 04/05/23 11:09) worsening heartburn ranitidine Adverse Reaction (Unknown, Verified 04/05/23 11:09) worsening heartburn, abdominal pain (ONLY to generic) Medication List - Last Reconciled 04/05/23 by Jimmy Awan MD albuterol sulfate 2.5 mg (3 mL) inhalation QID PRN albuterol sulfate 90 mcg/actuation 2 puffs inhalation Q6H PRN 30 days atorvastatin 80 mg PO BEDTIME 90 days blood sugar diagnostic (FreeStyle Lite Strips) As directed- to test blood sugar TID cholecalciferol (vitamin D3) 50 mcg PO DAILY 90 days clopidogrel 75 mg PO DAILY 90 days glyburide 2.5 mg PO DAILY 90 days latanoprost 0.005% 1 drp ophthalmic (eye) BEDTIME loratadine 10 mg PO DAILY PRN 90 days NS metformin 1,000 mg PO BID methylcellulose (laxative) (Citrucel) 500 mg PO DAILY metoprolol succinate ER 50 mg PO DAILY nitroglycerin 0.3 mg sublingual DAILY PRN ondansetron 4 mg PO Q8H PRN 15 days pantoprazole 40 mg PO DAILY sucralfate 1 g PO BEDTIME 30 days triamcinolone acetonide 0.1% 1 appl topical BID Tobacco use date assessed: 04/05/23 Fall risk assessment: No Falls in past year Last assessed Fall Risk: 04/05/23 Dental Screening Dental Screen Date: 04/05/23 Did you have a dental visit in the last 12 months?: No Did you have a dental problem in the last 6 months where you did not have access to dental care?: No Was dental information given to patient?: No HPI CAD, hyperlipidemia, DM HPI Details Patient comes in today for her follow up visit States that she feels okay but continues to experience some discomfort/tightening of her legs at times She will get getting a follow up CTA of her lower extremities with Dr. Jesus (vascular surgery) in 1 to 2 weeks for further evaluation She denies any headaches or dizziness Denies any chest pains, no increased SOB No nausea/vomiting, no abdominal pain No change in bowel habits noted Had her follow up labs done yesterday - to discuss her results [facility] Medical History Allergic rhinitis Anemia Asthma Atrophic vaginitis Benign essential hypertension Carotid atherosclerosis Chronic kidney disease, stage III (moderate) Coronary artery disease (~06/09/21) Diabetic polyneuropathy associated with type 2 diabetes mellitus GERD without esophagitis Hearing impairment Hyperkalemia Meralgia paresthetica of right side Orbital fracture Overweight (BMI 25.0-29.9) Peripheral vascular disease Pure hypercholesterolemia Recurrent urinary tract infection Seizure Type 2 diabetes mellitus with diabetic polyneuropathy Upper GI bleeding Vitamin D deficiency Surgical History History of cardiac catheterization History of endoscopy History of laparoscopic cholecystectomy History of left-sided carotid endarterectomy History of right-sided carotid endarterectomy Hx of colonoscopy S/P CABG x 4 (~06/09/21) S/P LASIK surgery Family History Father CVD (cardiovascular disease) Mother Stroke Brother CVD (cardiovascular disease) Esophageal cancer Social History Household Members: Children Housing: House Are you a primary transitions rn care coordinator to a significant other at home: No Do you presently have visiting nurse or other home services: No Alcohol intake: never Patient Tobacco Use Status: Former Tobacco user Quit Date: 34 years ago Tobacco use type: Cigarette e-Cigarette/Vaping Use: Never Used Second Hand Smoke Exposure: No Advance Directives Date on File: 01/11/22 service: No Current occupational status: retired 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 1. Little interest or pleasure in doing things: not at all 2. Feeling down, depressed, or hopeless: not at all 3. Trouble falling or staying asleep, or sleeping too much: not at all 4. Feeling tired or having little energy: not at all 5. Poor appetite or overeating: not at all 6. Feeling bad about yourself - or that you are a failure or have let yourself or your family down: not at all 7. Trouble concentrating on things, such as reading the newspaper or watching television: not at all 8. Moving or speaking so slowly that other people could have noticed. Or the opposite - being so fidgety or restless that you have been moving around a lot more than usual: not at all 9. Thoughts that you would be better off or of hurting yourself in some way: not at all Total score: 0 Depression Screening Interpretation: Negative [id number] - PHQ-9 Billing: Yes Source: Developed by Drs. Aquiles Alford, Yohana Coto, Jay Jay Metz and colleagues, with an educational yessi from [employer]. Thrive Questionnaire Date Thrive assessed: 04/05/23 I am a: Patient What is your living situation today?: I have a steady place to live Within the past 12 months, did the food you bought not last and you didn't have the money to get more?: Never true Within the past 12 months, did you worry whether your food would run out before you got money to buy more?: Never true Do you have trouble paying for medicines?: No Do you have trouble getting transportation to medical appointments?: No Do you have trouble paying your heating and electricity bill?: No Do you have trouble taking care of your child, family member or friend?: No Do you have trouble with day-to-day activities such as bathing, preparing meals, shopping, managing finances, etc.?: No Are you currently unemployed and looking for a job?: No Are you interested in more education?: No Please select the resources that you would like help with: None Currently or been in a relationship where the following occur: no concerns reported AUDIT C Alcohol Use Questionnaire (AUDIT-C) 1. How often do you have a drink containing alcohol?: Never 3. How often do you have six or more drinks on one occasion?: Never Total Score: 0 Score Reviewed/Action Taken: Yes GALILEA-7 AMB Questionnaire GALILEA-7 Date GALILEA - 7 assessed: 04/05/23 Feeling nervous, anxious, or on edge: 0 = Not at all Not being able to stop or control worryin = Not at all Worrying too much about different things: 0 = Not at all Trouble relaxin = Not at all Being so restless that it is hard to sit still: 0 = Not at all Becoming easily annoyed or irritable: 0 = Not at all Feeling afraid as if something awful might happen: 0 = Not at all Total GALILEA-7 score (0-4 normal; 5-9 mild; 10-14 moderate; 15-21 severe): 0 Source: Developed by Drs. Aquiles lAford, Yohana Coto, Jay Jay Metz and colleagues, with an educational yessi from [employer]. Review of Systems Const Denies fatigue, Denies fever(s) and Denies headache(s) ENT Denies dysphagia, Denies dizziness, Denies headache(s), Denies nasal congestion, Denies odynophagia and Denies sore throat Card Denies chest pain, Denies palpitations and Reports dyspnea on exertion (mild) Resp Denies cough, Reports dyspnea on exertion (mild) and Denies wheezing GI Denies abdominal pain, Denies constipation, Denies dysphagia, Denies heartburn, Denies diarrhea, Denies nausea, Denies odynophagia and Denies vomiting Denies difficulty voiding, Denies nocturia and Denies dysuria Neuro Denies dizziness and Denies headache(s) Endo Denies fatigue and Denies palpitations Aller/Immun Denies wheezing Physical exam (Primary Care) Vital Signs: Last Vital Signs Pulse 67 04/05/23 10:51 BP 116/76 04/05/23 10:51 Pulse Ox 97 04/05/23 10:51 Oxygen Delivery Method Room Air 04/05/23 10:51 BMI result Body Mass Index 28.5 Tobacco/Smoking Status: Tobacco use Status Tobacco use date assessed 04/05/23 04/05/23 10:56 Patient Tobacco Use Status Former Tobacco user 04/05/23 10:56 Tobacco use type Cigarette 04/05/23 10:56 e-Cigarette/Vaping Use Never Used 04/05/23 10:56 PHQ-9: PHQ-9 Score PHQ-9: Total score 0 04/05/23 11:23 Depression Screening Interpretation: Negative Thrive Assessment: Date of Thrive Assessment Date Thrive assessed 04/05/23 04/05/23 10:56 Currently or been in a relationship where the following occur: no concerns reported Const Other: appears pale General: no acute distress and alert HENMT Ears: TM's normal bilaterally and EAC's normal Throat: Yes posterior oropharynx normal and Yes tonsils normal (no TP congestion noted) Neck Neck: Yes no lymphadenopathy and Yes supple Resp Auscultation: clear to auscultation bilaterally, no rales and no wheezes Cardio Rate: regular rate Rhythm: regular rhythm Heart sounds: no murmurs GI Palpation (GI): Soft to palpation and nontender Auscultation: normal bowel sounds Skin Rashes: no rashes Extrem General: Yes no clubbing, cyanosis or edema Results Reviewed Results Reviewed: Laboratory Tests 04/04/23 04/04/23 04/04/23 07:30 07:30 07:47 WBC 6.1 Hgb 11.0 L Hct 34.7 L Plt Count 278 Sodium Potassium Creatinine Estimated GFR Fasting Glucose Hemoglobin A1c % Calcium Iron TIBC % Saturation Ferritin AST ALT Triglycerides Cholesterol LDL Cholesterol, Calc HDL Cholesterol Vitamin B12 25-OH Vitamin D Total TSH Ur Specific Lead 1.015 Urine Protein 30 (1+) H Urine Glucose (UA) Negative Urine Blood Small (1+) H Microalb/Creat Ratio 46.4 04/04/23 04/04/23 04/04/23 07:47 07:47 07:47 WBC Hgb Hct Plt Count Sodium 142 Potassium 4.9 Creatinine 1.44 H Estimated GFR 35 Fasting Glucose 113 H Hemoglobin A1c % 5.9 Calcium 8.9 Iron 82 TIBC 297 % Saturation 28 Ferritin 25 AST 16 ALT 12 Triglycerides 102 Cholesterol 143 LDL Cholesterol, Calc 85 HDL Cholesterol 38 Vitamin B12 25-OH Vitamin D Total 61.8 TSH 3.30 Ur Specific Lead Urine Protein Urine Glucose (UA) Urine Blood Microalb/Creat Ratio 04/04/23 07:47 WBC Hgb Hct Plt Count Sodium Potassium Creatinine Estimated GFR Fasting Glucose Hemoglobin A1c % Calcium Iron TIBC % Saturation Ferritin AST ALT Triglycerides Cholesterol LDL Cholesterol, Calc HDL Cholesterol Vitamin B12 571 25-OH Vitamin D Total TSH Ur Specific Lead Urine Protein Urine Glucose (UA) Urine Blood Microalb/Creat Ratio Assessment and Plan Assessment & Plan (1) Coronary artery disease: Onset Date: ~06/09/21 Comment: S/P stenting of ostial LAD; S/P CABG x 4 (RODRIGUEZ-mid LAD, SVG-PLV, left radial artery-OM, SVG-diag) on 06/09/21 Code(s): I25.10 - Atherosclerotic heart disease of [place] coronary artery without angina pectoris Qualifiers: Coronary Disease-Associated Artery/Lesion type: [place] artery [place] vs. transplanted heart: [place] heart Associated angina: without angina Qualified Code(s): I25.10 - Atherosclerotic heart disease of [place] coronary artery without angina pectoris Plan: S/P CABG x 4 in May 2021 Patient currently remains asymptomatic from a cardiac standpoint Continue Metoprolol ER 50 mg QD and Clopidogrel 75 mg QD; Aspirin 81 mg QD was previously discontinued due to her upper GI bleeding Patient also has NTG 0.4 mg tablets to take SL PRN for chest pains Follow up with cardiology (Dr. Alba) as scheduled (2) Carotid atherosclerosis: Comment: S/P left carotid revascularization and endarterectomy in 2018 Code(s): I65.29 - Occlusion and stenosis of unspecified carotid artery Qualifiers: Laterality: left Qualified Code(s): I65.22 - Occlusion and stenosis of left carotid artery Plan: Continue Clopidogrel 75 mg QD Follow up with vascular surgery (Dr. Jesus) as scheduled (3) Peripheral vascular disease: Code(s): I73.9 - Peripheral vascular disease, unspecified Plan: Follow up with vascular surgery as scheduled She appears to be scheduled for a repeat CTA of the lower extremities in later this month for further evaluation (4) Pure hypercholesterolemia: Code(s): E78.00 - Pure hypercholesterolemia, unspecified Plan: Results of her labs done yesterday reviewed and discussed with patient Reinforced low cholesterol diet Continue Atorvastatin 80 mg QD; Ezetimibe 10 mg QD was discontinued recently Will recheck her labs in 3 months for follow up (5) Benign essential hypertension: Code(s): I10 - Essential (primary) hypertension Plan: Reinforced low-sodium diet - goal is systolic BP of at least 120 to 130 mm or less due to her comorbidities Continue Amlodipine 5 mg QD and Metoprolol ER 50 mg QD; Losartan was previously discontinued due to hyperkalemia (6) Type 2 diabetes mellitus with diabetic polyneuropathy: Code(s): E11.42 - Type 2 diabetes mellitus with diabetic polyneuropathy Qualifiers: 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 longterm insulin use: without longterm use Qualified Code(s): E11.42 - Type 2 diabetes mellitus with diabetic polyneuropathy Plan: HgbA1c is again at 5.9% on her labs done yesterday; was also at 5.9% a few months ago - goal is < 7.0% Reinforced diabetic diet Continue Metformin 1000 mg BID and Glyburide 2.5 mg Q AM (7) Diabetic polyneuropathy associated with type 2 diabetes mellitus: Code(s): E11.42 - Type 2 diabetes mellitus with diabetic polyneuropathy Plan: Continue Oxycodone-Acetaminophen 5-325 mg 2 to 3 times a day ONLY NEEDED for severe pain Will consider starting on Gabapentin if symptoms progress or worsen (8) Anemia: Code(s): D64.9 - Anemia, unspecified Qualifiers: Anemia type: unspecified type Qualified Code(s): D64.9 - Anemia, unspecified Plan: Most likely multifactorial, including due to upper GI bleeding months ago that required Hemospray and 2 units of PRBC H/H was at 11.0/34.7 when last checked yesterday Her iron function tests done yesterday as well came out normal so her anemia is also likely (at least partly) due to anemia of chronic disease (CKD) Will continue to monitor her CBC regularly Follow up with hematology (Dr. Vazquez) as scheduled (9) Chronic kidney disease, stage III (moderate): Code(s): N18.30 - Chronic kidney disease, stage 3 unspecified Qualifiers: Chronic kidney disease stage 3 subtype: stage 3b (GFR 30-44) Qualified Code(s): N18.32 - Chronic kidney disease, stage 3b Plan: Her serum creatinine and GFR appears to have declined slightly on her recent labs but overall remains stable Will continue to monitor GFR and renal function regularly Was seeing nephrology (Dr. Ta) before and was reportedly advised that she is doing well and to just see them PRN for now (10) Asthma: Code(s): J45.909 - Unspecified asthma, uncomplicated Qualifiers: Asthma severity: moderate Asthma persistence: persistent Asthma complication type: uncomplicated Qualified Code(s): J45.40 - Moderate persistent asthma, uncomplicated Plan: Stable Continue Albuterol HFA 2 puffs 4 times a day as needed Patient also has a nebulizer that she uses (with Albuterol solution 0.083%) up to 4 times a day when needed (11) Allergic rhinitis: Code(s): J30.9 - Allergic rhinitis, unspecified Qualifiers: Allergic rhinitis trigger: unspecified Allergic rhinitis seasonality: unspecified Qualified Code(s): J30.9 - Allergic rhinitis, unspecified Plan: Continue Loratadine 10 mg QD PRN (12) Vitamin D deficiency: Code(s): E55.9 - Vitamin D deficiency, unspecified Plan: Continue Vitamin D3 1000 units QD (13) Seizure: Code(s): R56.9 - Unspecified convulsions Plan: Most likely due to Doxycycline; no recurrence since her discharge from [facility] several months ago CTA of the head/neck and MRI of the brain done earlier this year came out negative EEG done showed mild to moderate background slowing with occasional triphasic waves but no epileptiform activity was noted Neurology (Dr. Hernandez) thinks that patient actually had a TIA instead of a seizure Follow up with neurology as scheduled (14) Overweight (BMI 25.0-29.9): Code(s): E66.3 - Overweight Plan: Reinforced diet/weight loss; exercise is unrealistic given patient's multiple comorbidities Plan Follow up in 3 months Orders: Orders Vitamin B12 and Folate 3 Months E53.8 - Deficiency of other specified B group vitamins Comprehensive [place]. Panel Fast 3 Months E78.00 - Pure hypercholesterolemia, unspecified Hemoglobin A1c 3 Months E11.9 - Type 2 diabetes mellitus without complications Lipid Panel 3 Months E78.00 - Pure hypercholesterolemia, unspecified TSH reflex Free T4 3 Months E78.00 - Pure hypercholesterolemia, unspecified Vitamin D 25-OH Total 3 Months E55.9 - Vitamin D deficiency, unspecified Microalbumin, Random (w Creat) 3 Months E11.9 - Type 2 diabetes mellitus without complications Complete Blood Count Auto Diff 3 Months I10 - Essential (primary) hypertension UA CC w/rflx Micro + Cult 3 Months R30.0 - Dysuria Coding Level of Care Code Est Pt Level 4 (67165) Diagnoses Coronary artery disease I25.10 Coronary Disease-Associated Artery/Lesion type: [place] artery [place] vs. transplanted heart: [place] heart Associated angina: without angina Carotid atherosclerosis I65.22 Laterality: left Peripheral vascular disease I73.9 Pure hypercholesterolemia E78.00 Benign essential hypertension I10 Type 2 diabetes mellitus with diabetic polyneuropathy E11.42 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 rodent exterminator insulin use: without rodent exterminator use Diabetic polyneuropathy associated with type 2 diabetes mellitus E11.42 Anemia D64.9 Anemia type: unspecified type Chronic kidney disease, stage III (moderate) N18.32 Chronic kidney disease stage 3 subtype: stage 3b (GFR 30-44) Asthma J45.40 Asthma severity: moderate Asthma persistence: persistent Asthma complication type: uncomplicated Allergic rhinitis J30.9 Allergic rhinitis trigger: unspecified Allergic rhinitis seasonality: unspecified Vitamin D deficiency E55.9 Seizure R56.9 Overweight (BMI 25.0-29.9) E66.3
== END 2023-04-05 11:43 | disposition home or self-care (01) ==
PROVIDERS: Visit Provider Internal Medicine
DX: I12.9 Hypertensive chronic kidney disease with stage 1 through stage 4 chronic kidney disease, or unspecified chronic kidney disease (principal); I73.9 Peripheral vascular disease, unspecified; E11.42 Type 2 diabetes mellitus with diabetic polyneuropathy; N18.32 Chronic kidney disease, stage 3b; J45.40 Moderate persistent asthma, uncomplicated; E55.9 Vitamin D deficiency, unspecified; R56.9 Unspecified convulsions; I25.10 Atherosclerotic heart disease of native coronary artery without angina pectoris; E78.00 Pure hypercholesterolemia, unspecified; I65.22 Occlusion and stenosis of left carotid artery; D64.9 Anemia, unspecified
CPT/HCPCS: 99214

== ENCOUNTER 2023-07-09 07:38 | Outpatient (REF) | payer MEDICARE, OTHER, SELFPAY ==
[2023-07-09 08:06] LABS: MANUAL DIFF FLAG NO
[2023-07-09 08:14] LABS: Basophils Percent Auto 0.5 % (0-2); Eosinophils Absolute Auto 0.3 X10*3/uL (0.0-0.4); Eosinophils Percent Auto 3.5 % (0-4); Hematocrit 34.2 % (37.0-47.0); Hemoglobin 11.3 g/dl (12.0-16.0); Imm Gran Abs Auto 0.03 X10*3/uL (0.00-0.03); Imm Gran Pct Auto 0.4 % (0.0-0.4); Lymphocytes Absolute Auto 0.9 X10*3/uL (1.2-4.9); Lymphocytes Percent Auto 12.1 % (20-40); Mean Corpuscular Hemoglobin 29.9 pg (27.0-33.0); Mean Corpuscular Volume 90.5 fL (80.0-98.0); Mean Platelet Volume 8.5 fL (9.4-12.3); Monocytes Absolute Auto 0.6 X10*3/uL (0.1-1.2); Monocytes Percent Auto 8.7 % (2-11); Neutrophils Absolute Auto 5.5 x10*3/uL (2.0-8.3); Neutrophils Percent Auto 74.8 % (45-73); Platelet Count 279 X10*3/uL (160-400); Red Blood Count 3.78 X10*6/uL (4.20-5.50); Red Cell Distribution Width 13.8 % (11.0-16.0); White Blood Count 7.4 X10*3/uL (4.8-10.8)
[2023-07-09 08:26] LABS: Estimated Average Glucose 123 mg/dL; Hemoglobin A1c % 5.9 % (<6.0)
[2023-07-09 08:50] LABS: Alanine Aminotransferase 11 U/L (0-31); Alkaline Phosphatase 73 U/L (39-117); Anion Gap 12 (12-20); Aspartate Amino Transferase 15 U/L (5-31); Bilirubin Total 0.5 mg/dL (0.0-1.0); Blood Urea Nitrogen 33 mg/dL (9-16); Calcium 9.5 mg/dL (8.4-10.2); Carbon Dioxide 26 mmol/L (22-29); Chloride 108 mmol/L (96-108); Cholesterol 123 mg/dL (<200); Estimated Glomerular Filt Rate 27; Glucose Fasting 80 mg/dL (60-99); HDL Cholesterol 34 mg/dL (>40); LDL Cholesterol Calculated 66 mg/dL (<100); Potassium 5.2 mmol/L (3.3-5.1); Sodium 141 mmol/L (135-145); Total Protein 6.5 g/dL (6.5-8.0); Triglycerides 117 mg/dL (<150)
[2023-07-09 09:06] LABS: Vitamin D 25-OH Total 55.7 ng/mL (>30)
[2023-07-09 09:16] LABS: Appearance Urine Clear; Color Urine Yellow; Glucose Urine UA Negative (Negative); Leukocyte Esterase Urine Large (3+) (Negative); Nitrite Urine Negative (Negative); UMIC TRIGGER UACC YES; Urine Blood Negative (Negative); Urine Ketones Negative (Negative); Urine Protein Negative (Neg-Trace)
[2023-07-09 09:18] LABS: Folate 8.7 ng/mL (> or = 4.0); Vitamin B12 556 pg/mL (200-900)
[2023-07-09 09:22] LABS: Bacteria Urine 4+ (None Seen); Hyaline Casts Urine 0-2 /LPF (0-2); RBC Urine 0-2 /HPF (0-2); UACC Culture Trigger YES; WBC Urine >50 /HPF (0-5)
[2023-07-09 09:53] LABS: Creatinine Urine 138.14 mg/dL; Microalbum/Creatinine Ratio Ur 9.4 ug/mg cr (<30)
== END 2023-07-09 07:39 | disposition home or self-care (01) ==
LOC: HO.LAB 07:38
PROVIDERS: PCP Internal Medicine; Visit Provider Internal Medicine
DX: E78.00 Pure hypercholesterolemia, unspecified (principal); I10 Essential (primary) hypertension; E11.9 Type 2 diabetes mellitus without complications; E55.9 Vitamin D deficiency, unspecified; E53.8 Deficiency of other specified B group vitamins; R30.0 Dysuria
CPT/HCPCS: 36415; 80053; 80061; 81001; 82043; 82306; 82570; 82607; 82746; 83036; 84443; 85025; 87086; 87088; 87186

== ENCOUNTER 2023-07-11 09:36 | Outpatient (AMB) | payer MEDICARE, OTHER, SELFPAY ==
[2023-07-11 09:40] VITALS: BP 126/78; BMI 28.4
--- NOTE | 2023-07-11 09:40 | MHC.PC.OV ---
Vital Signs 07/11/23 09:40 Height 5 ft 2 in Weight 155 lb 2 oz BMI 28.4 BP 126/78 Blood Pressure Location Lt brachial Position Sitting Pulse Source Pulse Oximeter Oxygen Delivery Method Room Air Intake Visit Reasons: 3 month f/u Etl Bi Developer Required: No Accompanied by: Self / Same As Patient Allergies doxycycline Allergy (Mild, Verified 07/11/23 10:28) Vomiting levetiracetam [From Keppra] Allergy (Mild, Verified 07/11/23 10:28) Vomiting amoxicillin Allergy (Unknown, Verified 07/11/23 10:28) rash Penicillins Allergy (Unknown, Verified 07/11/23 10:28) rash prednisone Allergy (Unknown, Verified 07/11/23 10:28) rash ceftriaxone [From Rocephin] Allergy (Verified 07/11/23 10:28) Rash milk Allergy (Verified 07/11/23 10:28) Unknown omeprazole Adverse Reaction (Unknown, Verified 07/11/23 10:28) worsening heartburn ranitidine Adverse Reaction (Unknown, Verified 07/11/23 10:28) worsening heartburn, abdominal pain (ONLY to generic) Medication List - Last Reconciled 07/11/23 by Jimmy Awan MD albuterol sulfate 2.5 mg (3 mL) inhalation QID PRN albuterol sulfate 90 mcg/actuation 2 puffs inhalation Q6H PRN 30 days atorvastatin 80 mg PO BEDTIME 90 days blood sugar diagnostic (FreeStyle Lite Strips) As directed- to test blood sugar TID cholecalciferol (vitamin D3) 50 mcg PO DAILY 90 days clopidogrel 75 mg PO DAILY 90 days glyburide 2.5 mg PO DAILY 90 days latanoprost 0.005% 1 drp ophthalmic (eye) BEDTIME loratadine 10 mg PO DAILY PRN 90 days NS metformin 1,000 mg PO BID methylcellulose (laxative) (Citrucel) 500 mg PO DAILY metoprolol succinate ER 50 mg PO DAILY nitroglycerin 0.3 mg sublingual DAILY PRN ondansetron 4 mg PO Q8H PRN 15 days pantoprazole 40 mg PO DAILY sucralfate 1 g PO BEDTIME 30 days triamcinolone acetonide 0.1% 1 appl topical BID Tobacco use date assessed: 07/11/23 Fall risk assessment: 1 Fall in past year Last assessed Fall Risk: 07/11/23 Dental Screening Dental Screen Date: 07/11/23 Did you have a dental visit in the last 12 months?: No Did you have a dental problem in the last 6 months where you did not have access to dental care?: No Was dental information given to patient?: No HPI 3 month f/u HPI Details Patient comes in today for her follow up visit States that she feels okay She denies any headaches or dizziness Denies any chest pains, no increased SOB No nausea/vomiting, no abdominal pain No change in bowel habits noted Had her follow up labs done a couple of days ago - to discuss her results She would also like to get her flu shot today [facility] Medical History (Updated 07/11/23 @ 10:34 by Jimmy Awan MD) Chronic kidney disease, stage 4 (severe) Chronic kidney disease, stage III (moderate) Atrophic vaginitis Orbital fracture Upper GI bleeding Hearing impairment Seizure Recurrent urinary tract infection Overweight (BMI 25.0-29.9) Vitamin D deficiency Allergic rhinitis Meralgia paresthetica of right side Anemia GERD without esophagitis Asthma Hyperkalemia Diabetic polyneuropathy associated with type 2 diabetes mellitus Peripheral vascular disease Pure hypercholesterolemia Benign essential hypertension Carotid atherosclerosis Coronary artery disease (~06/09/21) Type 2 diabetes mellitus with diabetic polyneuropathy Surgical History Hx of colonoscopy History of endoscopy S/P CABG x 4 (~06/09/21) History of cardiac catheterization History of left-sided carotid endarterectomy S/P LASIK surgery History of right-sided carotid endarterectomy History of laparoscopic cholecystectomy Family History Father CVD (cardiovascular disease) Mother Stroke Brother CVD (cardiovascular disease) Esophageal cancer Household Members: Children Housing: House Are you a primary post acute care nurse practitioner to a significant other at home: No Do you presently have visiting nurse or other home services: No Alcohol intake: never Patient Tobacco Use Status: Former Tobacco user Quit Date: 34 years ago Tobacco use type: Cigarette e-Cigarette/Vaping Use: Never Used Second Hand Smoke Exposure: No Advance Directives Date on File: 01/11/22 service: No Current occupational status: retired 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 1. Little interest or pleasure in doing things: not at all 2. Feeling down, depressed, or hopeless: not at all 3. Trouble falling or staying asleep, or sleeping too much: not at all 4. Feeling tired or having little energy: not at all 5. Poor appetite or overeating: not at all 6. Feeling bad about yourself - or that you are a failure or have let yourself or your family down: not at all 7. Trouble concentrating on things, such as reading the newspaper or watching television: not at all 8. Moving or speaking so slowly that other people could have noticed. Or the opposite - being so fidgety or restless that you have been moving around a lot more than usual: not at all 9. Thoughts that you would be better off or of hurting yourself in some way: not at all Total score: 0 Depression Screening Interpretation: Negative Depression Screening Done: Yes 78249 - PHQ-9 Billing: Yes Source: Developed by Drs. Aquiles Alford, Yohana Coto, Jay Jay Metz and colleagues, with an educational yessi from [employer]. Thrive Questionnaire Date Thrive assessed: 07/11/23 I am a: Patient What is your living situation today?: I have a steady place to live Within the past 12 months, did the food you bought not last and you didn't have the money to get more?: Never true Within the past 12 months, did you worry whether your food would run out before you got money to buy more?: Never true Do you have trouble paying for medicines?: No Do you have trouble getting transportation to medical appointments?: No Do you have trouble paying your heating and electricity bill?: No Do you have trouble taking care of your child, family member or friend?: No Do you have trouble with day-to-day activities such as bathing, preparing meals, shopping, managing finances, etc.?: No Are you currently unemployed and looking for a job?: No Are you interested in more education?: No Please select the resources that you would like help with: None Currently or been in a relationship where the following occur: no concerns reported AUDIT C Alcohol Use Questionnaire (AUDIT-C) 1. How often do you have a drink containing alcohol?: Never 3. How often do you have six or more drinks on one occasion?: Never Total Score: 0 Score Reviewed/Action Taken: Yes GALILEA-7 AMB Questionnaire GALILEA-7 Date GALILEA - 7 assessed: 07/11/23 Feeling nervous, anxious, or on edge: 0 = Not at all Not being able to stop or control worryin = Not at all Worrying too much about different things: 0 = Not at all Trouble relaxin = Not at all Being so restless that it is hard to sit still: 0 = Not at all Becoming easily annoyed or irritable: 0 = Not at all Feeling afraid as if something awful might happen: 0 = Not at all Total GALILEA-7 score (0-4 normal; 5-9 mild; 10-14 moderate; 15-21 severe): 0 Source: Developed by Drs. Aquiles Alford, Yohana Coto, Jay Jay Metz and colleagues, with an educational yessi from [employer]. Review of Systems Const Denies chills, Denies fatigue, Denies fever(s) and Denies headache(s) ENT Denies dysphagia, Denies dizziness, Denies otalgia, Denies headache(s), Denies odynophagia and Denies sore throat Card Denies chest pain, Denies palpitations and Reports dyspnea on exertion (mild) Resp Denies cough, Reports dyspnea on exertion (mild) and Denies wheezing GI Denies abdominal pain, Denies constipation, Denies dysphagia, Denies heartburn, Denies diarrhea, Denies nausea, Denies odynophagia and Denies vomiting Denies difficulty voiding, Denies nocturia and Denies dysuria Skin/Breast Denies rash Neuro Denies dizziness and Denies headache(s) Endo Denies fatigue and Denies palpitations Aller/Immun Denies wheezing Physical exam (Primary Care) Vital Signs: Last Vital Signs BP 126/78 07/11/23 09:40 Oxygen Delivery Method Room Air 07/11/23 09:40 BMI result Body Mass Index 28.4 Tobacco/Smoking Status: Tobacco use Status Tobacco use date assessed 07/11/23 07/11/23 09:47 Patient Tobacco Use Status Former Tobacco user 07/11/23 09:47 Tobacco use type Cigarette 07/11/23 09:47 e-Cigarette/Vaping Use Never Used 07/11/23 09:47 PHQ-9: PHQ-9 Score PHQ-9: Total score 0 07/11/23 10:31 Depression Screening Interpretation: Negative Thrive Assessment: Date of Thrive Assessment Date Thrive assessed 07/11/23 07/11/23 09:47 Currently or been in a relationship where the following occur: no concerns reported Const Other: appears pale General: no acute distress and alert HENMT Ears: TM's normal bilaterally and EAC's normal Throat: Yes posterior oropharynx normal and Yes tonsils normal (no TP congestion noted) Neck Neck: Yes no lymphadenopathy and Yes supple Resp Auscultation: clear to auscultation bilaterally, no rales and no wheezes Cardio Rate: regular rate Rhythm: regular rhythm Heart sounds: no murmurs GI Palpation (GI): Soft to palpation and nontender Auscultation: normal bowel sounds Skin Rashes: no rashes Extrem General: Yes no clubbing, cyanosis or edema Office Procedures Flu Questionnaire Does the patient have a severe egg allergy?: No Does the patient have severe life threatening allergies?: No Does the patient have a fever or illness today?: No Has the patient ever had Guillain-[place] Syndrome?: No Has the patient ever had any past reaction to a flu shot?: No Immunizations flu vacc [id number] 6mos up(PF) 60 mcg(15 mcgx4)/0.5 mL IM syringe Performing Provider: Jimmy Awan MD Performing Location: [facility] Administered by: Gabe Rebolledo on 07/11/23 10:53 Dose Route Admin Location Dispensed Lot Number Expiration Date NDC Insurance Verifier 0.5 mL IM Left Deltoid 0.5 mL [id number] 02/17/24 [id number] [employer] VIS Given Date VIS Provided VIS Publication Date 07/11/23 Single Vaccine 21 Eligibility Eligibility Date Funding Source Not [facility] Eligible 07/11/23 Private Results Reviewed Results Reviewed: Laboratory Tests 07/09/23 07/09/23 07:50 08:00 WBC 7.4 Hgb 11.3 L Hct 34.2 L Plt Count 279 Sodium 141 Potassium 5.2 H Creatinine 1.78 H Estimated GFR 27 Fasting Glucose 80 Hemoglobin A1c % 5.9 Calcium 9.5 D AST 15 ALT 11 Triglycerides 117 Cholesterol 123 LDL Cholesterol, Calc 66 HDL Cholesterol 34 L Vitamin B12 556 25-OH Vitamin D Total 55.7 TSH 2.60 Ur Specific [place] 1.020 Urine Protein Negative Urine Glucose (UA) Negative Urine Blood Negative Assessment and Plan Assessment & Plan (1) Coronary artery disease: Onset Date: ~06/09/21 Comment: S/P stenting of ostial LAD; S/P CABG x 4 (RODRIGUEZ-mid LAD, SVG-PLV, left radial artery-OM, SVG-diag) on 06/09/21 Code(s): I25.10 - Atherosclerotic heart disease of upper [place] coronary artery without angina pectoris Qualifiers: Coronary Disease-Associated Artery/Lesion type: upper [place] artery [place] vs. transplanted heart: upper [place] heart Associated angina: without angina Qualified Code(s): I25.10 - Atherosclerotic heart disease of [place] coronary artery without angina pectoris Plan: S/P CABG x 4 in May 2021 Patient currently remains asymptomatic from a cardiac standpoint Continue Metoprolol ER 50 mg QD and Clopidogrel 75 mg QD; Aspirin 81 mg QD was previously discontinued due to her upper GI bleeding Patient also has NTG 0.4 mg tablets to take SL PRN for chest pains Follow up with cardiology (Dr. Alba) as scheduled (2) Carotid atherosclerosis: Comment: S/P left carotid revascularization and endarterectomy in 2018 Code(s): I65.29 - Occlusion and stenosis of unspecified carotid artery Qualifiers: Laterality: left Qualified Code(s): I65.22 - Occlusion and stenosis of left carotid artery Plan: Continue Clopidogrel 75 mg QD Follow up with vascular surgery (Dr. Jesus) as scheduled (3) Peripheral vascular disease: Code(s): I73.9 - Peripheral vascular disease, unspecified Plan: Follow up with vascular surgery as scheduled (4) Pure hypercholesterolemia: Code(s): E78.00 - Pure hypercholesterolemia, unspecified Plan: Results of her labs done a couple of days ago reviewed and discussed with patient Reinforced low cholesterol diet Continue Atorvastatin 80 mg QD; Ezetimibe 10 mg QD was discontinued a few months ago Will recheck her labs and fasting lipids in 3 months for follow up (5) Benign essential hypertension: Code(s): I10 - Essential (primary) hypertension Plan: Reinforced low-sodium diet - goal is systolic BP of at least 120 to 130 mm or less due to her comorbidities Continue Amlodipine 5 mg QD and Metoprolol ER 50 mg QD; Losartan was previously discontinued due to hyperkalemia (6) Type 2 diabetes mellitus with diabetic polyneuropathy: Code(s): E11.42 - Type 2 diabetes mellitus with diabetic polyneuropathy Qualifiers: 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 skilled nursing insulin use: without skilled nursing use Qualified Code(s): E11.42 - Type 2 diabetes mellitus with diabetic polyneuropathy Plan: HgbA1c remains unchanged again at 5.9% on her labs done a couple of days ago; she has been at 5.9% for several months now - goal is < 7.0% Reinforced diabetic diet Is currently on Metformin 1000 mg BID and Glyburide 2.5 mg Q AM but due to the recent decline in her renal function (she is now at CKD stage 4) and her serum creatinine is now at 1.78, will have to take her off Metformin Will start her instead on Farxiga 10 mg QD to help with BOTH her diabetes and renal function (7) Diabetic polyneuropathy associated with type 2 diabetes mellitus: Code(s): E11.42 - Type 2 diabetes mellitus with diabetic polyneuropathy Plan: Continue Oxycodone-Acetaminophen 5-325 mg 2 to 3 times a day ONLY NEEDED for severe pain Will consider starting on Gabapentin if symptoms progress or worsen (8) Chronic kidney disease, stage 4 (severe): Code(s): N18.4 - Chronic kidney disease, stage 4 (severe) Plan: Her serum creatinine and GFR appears to have declined on her recent labs and she has progressed form CKD stage 3 to stage 4 now Was seeing nephrology (Dr. Ta) before and was reportedly advised that she was doing well then and to just see them PRN but as her renal function has recently declined, will refer her back to nephrology for regular follow ups - patient thinks that she was seeing Dr. Barnard more recently but she is not sure and will have to ask her daughter about this when she gets home Will also start her on Farxiga, which should help with her renal function Will continue to monitor GFR and renal function regularly (9) Anemia: Code(s): D64.9 - Anemia, unspecified Qualifiers: Anemia type: unspecified type Qualified Code(s): D64.9 - Anemia, unspecified Plan: Most likely multifactorial, including due to upper GI bleeding months ago that required Hemospray and 2 units of PRBC H/H was at 11.3/34.2 when last checked a couple of days ago Her iron function tests done a few months ago came out normal so her anemia is also likely (at least partly) due to anemia of chronic disease (CKD) Will continue to monitor her CBC regularly Follow up with hematology (Dr. Vazquez) as scheduled (10) Asthma: Code(s): J45.909 - Unspecified asthma, uncomplicated Qualifiers: Asthma severity: moderate Asthma persistence: persistent Asthma complication type: uncomplicated Qualified Code(s): J45.40 - Moderate persistent asthma, uncomplicated Plan: Stable Continue Albuterol HFA 2 puffs 4 times a day as needed Patient also has a nebulizer that she uses (with Albuterol solution 0.083%) up to 4 times a day when needed (11) Allergic rhinitis: Code(s): J30.9 - Allergic rhinitis, unspecified Qualifiers: Allergic rhinitis trigger: unspecified Allergic rhinitis seasonality: unspecified Qualified Code(s): J30.9 - Allergic rhinitis, unspecified Plan: Continue Loratadine 10 mg QD PRN (12) Vitamin D deficiency: Code(s): E55.9 - Vitamin D deficiency, unspecified Plan: Continue Vitamin D3 1000 units QD (13) Seizure: Code(s): R56.9 - Unspecified convulsions Plan: Most likely due to Doxycycline; no recurrence since her discharge from [facility] several months ago CTA of the head/neck and MRI of the brain done earlier this year came out negative EEG done showed mild to moderate background slowing with occasional triphasic waves but no epileptiform activity was noted Neurology (Dr. Hernandez) thinks that patient actually had a TIA instead of a seizure Follow up with neurology as scheduled (14) Overweight (BMI 25.0-29.9): Code(s): E66.3 - Overweight Plan: Reinforced diet/weight loss; exercise is unrealistic given patient's multiple comorbidities Plan Flu vaccine given today, per request Follow up in 3 months Orders: Orders Complete Blood Count Auto Diff 3 Months I10 - Essential (primary) hypertension Lipid Panel 3 Months E78.00 - Pure hypercholesterolemia, unspecified UA CC w/rflx Micro + Cult 3 Months R30.0 - Dysuria Comprehensive [place]. Panel Fast 3 Months E78.00 - Pure hypercholesterolemia, unspecified Hemoglobin A1c 3 Months E11.9 - Type 2 diabetes mellitus without complications Microalbumin, Random (w Creat) 3 Months E11.9 - Type 2 diabetes mellitus without complications TSH reflex Free T4 3 Months E78.00 - Pure hypercholesterolemia, unspecified Vitamin D 25-OH Total 3 Months E55.9 - Vitamin D deficiency, unspecified Influenza [id number] Immunization Today Z23 - Encounter for immunization Referrals Nephrology Referral N18.4 - Chronic kidney disease, stage 4 (severe) Medications: New Farxiga (dapagliflozin propanediol) 10 mg PO QAM 90 days 90 tabs 1RF NS Discontinued metformin Discontinued Reason: Doctor's Order 1,000 mg PO BID 180 tabs 1RF E11.42 - Type 2 diabetes mellitus with diabetic polyneuropathy Coding Level of Care Code Est Pt Level 4 (01003) Diagnoses Coronary artery disease involving upper [place] coronary artery of upper [place] heart without angina pectoris I25.10 Coronary Disease-Associated Artery/Lesion type: upper [place] artery [place] vs. 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
== END 2023-07-11 10:55 | disposition home or self-care (01) ==
PROVIDERS: PCP Internal Medicine; Visit Provider Internal Medicine
DX: E11.42 Type 2 diabetes mellitus with diabetic polyneuropathy (principal); N18.4 Chronic kidney disease, stage 4 (severe); I73.9 Peripheral vascular disease, unspecified; R56.9 Unspecified convulsions; I25.10 Atherosclerotic heart disease of native coronary artery without angina pectoris; I65.22 Occlusion and stenosis of left carotid artery; E78.00 Pure hypercholesterolemia, unspecified; I12.9 Hypertensive chronic kidney disease with stage 1 through stage 4 chronic kidney disease, or unspecified chronic kidney disease; D64.9 Anemia, unspecified; J45.40 Moderate persistent asthma, uncomplicated; J30.9 Allergic rhinitis, unspecified; E55.9 Vitamin D deficiency, unspecified
CPT/HCPCS: 99214

== ENCOUNTER 2023-07-19 13:47 | Outpatient (AMB) | payer MEDICARE, OTHER, SELFPAY ==
[2023-07-19 14:05] VITALS: BP 124/40; PULSE 62; O2SAT 98; BMI 28.2
--- NOTE | 2023-07-19 14:05 | HO.NEPHOV ---
HPI HPI Comments History of Present Illness Details 82-year-old woman with a history of longstanding diabetes mellitus for more than 30 years along with hypertension and peripheral vascular disease. She was on losartan for quite some time. Recently was shortness discontinued due to a bump in the creatinine. She was on metformin which has been held due to worsening serum creatinine. Farxiga has been added. She has increased urination otherwise no other issues. She was accompanied by her daughter today. She has extensive to vascular disease undergone stent placements for progressive disease. History of coronary disease as well. She has history of smoking for almost 30 years but she quit smoking more than 20 years ago. [facility] Medical History Chronic kidney disease, stage 4 (severe) Chronic kidney disease, stage III (moderate) Atrophic vaginitis Orbital fracture Upper GI bleeding Hearing impairment Seizure Recurrent urinary tract infection Overweight (BMI 25.0-29.9) Vitamin D deficiency Allergic rhinitis Meralgia paresthetica of right side Anemia GERD without esophagitis Asthma Hyperkalemia Diabetic polyneuropathy associated with type 2 diabetes mellitus Peripheral vascular disease Pure hypercholesterolemia Benign essential hypertension Carotid atherosclerosis Coronary artery disease (~06/09/21) Type 2 diabetes mellitus with diabetic polyneuropathy Surgical History Hx of colonoscopy History of endoscopy S/P CABG x 4 (~06/09/21) History of cardiac catheterization History of left-sided carotid endarterectomy S/P LASIK surgery History of right-sided carotid endarterectomy History of laparoscopic cholecystectomy Family History Father CVD (cardiovascular disease) Mother Stroke Brother CVD (cardiovascular disease) Esophageal cancer Social History Household Members: Children Housing: House Are you a primary before and after school daycare worker to a significant other at home: No Do you presently have visiting nurse or other home services: No Alcohol intake: never Comment: cardiac Patient Tobacco Use Status: Former Tobacco user Quit Date: 34 years ago Tobacco use type: Cigarette e-Cigarette/Vaping Use: Never Used Second Hand Smoke Exposure: No Advance Directives Date on File: 01/11/22 service: No Current occupational status: retired 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 Cognitive needs: No Hearing needs: No Vision needs: No Vital Signs 07/19/23 14:05 Height 5 ft 2 in Weight 154 lb BMI 28.2 BP 124/40 L Blood Pressure Location Rt brachial Position Sitting Pulse 62 Pulse Source Pulse Oximeter Pulse Oximetry (%) 98 Oxygen Delivery Method Room Air Physical Exam Vital Signs: Last Vital Signs Pulse 62 07/19/23 14:05 BP 124/40 L 07/19/23 14:05 Pulse Ox 98 07/19/23 14:05 Oxygen Delivery Method Room Air 07/19/23 14:05 BMI result Body Mass Index 28.2 Const General: comfortable; No acute distress Orientation/consciousness: patient oriented x3 Eyes General: appearance normal, both eyes and all related structures Visual Marie: normal visual marie by confrontation Neck Neck: Yes supple and Yes no JVD Resp Effort & Inspection: normal respiratory effort and respiratory effort not decreased Auscultation: rhonchi Cardio Palpation: no palpable S3 and no palpable S4 Heart sounds: no rubs GI Inspection: Yes normal to inspection Palpation (GI): Soft to palpation Percussion: Yes normal to percussion Auscultation: normal bowel sounds General: Yes no CVA tenderness Back/Spine/Pelvis Back: no CVA tenderness Skin General skin exam: no petechiae and no purpura Neuro General: patient oriented x3 and no focal motor deficits Extrem General: No clubbing and No edema Results Reviewed Results Reviewed: Potassium 5.2 Serum creatinine 1.78 Urine studies in July 12 showed no microalbuminuria. Assessment & Plan Assessment & Plan (1) Anemia: Code(s): D64.9 - Anemia, unspecified Qualifiers: Anemia type: unspecified type Qualified Code(s): D64.9 - Anemia, unspecified (2) Chronic kidney disease, stage III (moderate): Code(s): N18.30 - Chronic kidney disease, stage 3 unspecified Qualifiers: Chronic kidney disease stage 3 subtype: stage 3b (GFR 30-44) Qualified Code(s): N18.32 - Chronic kidney disease, stage 3b (3) Hyperkalemia: Code(s): E87.5 - Hyperkalemia (4) Peripheral vascular disease: Code(s): I73.9 - Peripheral vascular disease, unspecified (5) Coronary artery disease: Onset Date: ~06/09/21 Comment: S/P stenting of ostial LAD; S/P CABG x 4 (RODRIGUEZ-mid LAD, SVG-PLV, left radial artery-OM, SVG-diag) on 06/09/21 Code(s): I25.10 - Atherosclerotic heart disease of [place] coronary artery without angina pectoris Qualifiers: Coronary Disease-Associated Artery/Lesion type: [place] artery [place] vs. transplanted heart: [place] heart Associated angina: without angina Qualified Code(s): I25.10 - Atherosclerotic heart disease of [place] coronary artery without angina pectoris (6) Carotid atherosclerosis: Comment: S/P left carotid revascularization and endarterectomy in 2019 Code(s): I65.29 - Occlusion and stenosis of unspecified carotid artery Qualifiers: Laterality: left Qualified Code(s): I65.22 - Occlusion and stenosis of left carotid artery Plan 82-year-old woman with CKD in a setting of hypertension longstanding diabetes mellitus and peripheral vascular disease. Baseline creatinine is around 1.0 mg/dL. Recently the small bump in serum creatinine up to 1.4. Potassium is also elevated at 5.2. The differential diagnosis for the acute kidney injury would include hypoperfusion. However despite discontinuing Diovan has been no improvement in the creatinine. Obstructive uropathy should be ruled out in this elderly woman. Other possibilities including underlying renovascular disease should be considered. Based on the urine findings I do not believe she has any active glomerulonephritis or interstitial disease at this time. Recommendations Obtain renal ultrasonogram. Based on ultrasonogram will arrange for renal Doppler if indicated. Low-potassium diet. Increase fluid intake. Avoid nephrotoxins including NSAIDs. Recheck renal panel the next 1 week. Further workup will be based on the outcome of the above baseline medications Orders: Orders US renal BI Today D64.9 - Anemia, unspecified, N17.9 - Acute kidney failure, unspecified Electrolytes 1 Week D64.9 - Anemia, unspecified, N17.9 - Acute kidney failure, unspecified Creatinine 1 Week D64.9 - Anemia, unspecified, N17.9 - Acute kidney failure, unspecified Calcium 1 Week D64.9 - Anemia, unspecified, N17.9 - Acute kidney failure, unspecified Blood Urea Nitrogen 1 Week D64.9 - Anemia, unspecified, N17.9 - Acute kidney failure, unspecified Complete Blood Count no Diff 1 Week D64.9 - Anemia, unspecified, N17.9 - Acute kidney failure, unspecified Coding Level of Care Code New Pt Level 4 (92163) Diagnoses Anemia, unspecified type D64.9 Anemia type: unspecified type Stage 3b chronic kidney disease N18.32 Chronic kidney disease stage 3 subtype: stage 3b (GFR 30-44) Hyperkalemia E87.5 Peripheral vascular disease I73.9 Coronary artery disease involving [place] coronary artery of [place] heart without angina pectoris I25.10 Coronary Disease-Associated Artery/Lesion type: [place] artery [place] vs. transplanted heart: [place] heart Associated angina: without angina Atherosclerosis of left carotid artery I65.22 Laterality: left
== END 2023-07-19 14:35 | disposition home or self-care (01) ==
LOC: HO.HKA 13:47
PROVIDERS: PCP Internal Medicine; Visit Provider Internal Medicine Hypertension Specialist
DX: D64.9 Anemia, unspecified (principal); N18.32 Chronic kidney disease, stage 3b; E87.5 Hyperkalemia; I73.9 Peripheral vascular disease, unspecified; I25.10 Atherosclerotic heart disease of native coronary artery without angina pectoris; I65.22 Occlusion and stenosis of left carotid artery
CPT/HCPCS: 99204

== ENCOUNTER → 2023-07-19 13:47 | Outpatient (BNVA) | payer MEDICARE, OTHER, SELFPAY | PROVIDERS: PCP Internal Medicine; Visit Provider Internal Medicine Hypertension Specialist | DX: N18.32 Chronic kidney disease, stage 3b (principal); D64.9 Anemia, unspecified; E78.5 Hyperlipidemia, unspecified; I73.9 Peripheral vascular disease, unspecified; I25.10 Atherosclerotic heart disease of native coronary artery without angina pectoris; I65.22 Occlusion and stenosis of left carotid artery | CPT/HCPCS: 99202 ==

== ENCOUNTER 2023-08-02 10:46 | Outpatient (AMB) | payer MEDICARE, OTHER, SELFPAY ==
[2023-08-02 10:29] VITALS: BP 120/52; PULSE 62; O2SAT 95; BMI 28.7
--- NOTE | 2023-08-02 10:29 | HO.NEPHOV_ITS ---
HPI HPI Comments History of Present Illness Details 82-year-old woman with a history of long standing diabetes mellitus for more than 30 years along with hypertension and peripheral vascular disease. She was on losartan for quite some time. Recently was shortness discontinued due to a bump in the creatinine. She was on metformin which has been held due to worsening serum creatinine. Farxiga has been added. She has increased urination otherwise no other issues. She was accompanied by her daughter today. She has extensive to vascular disease undergone stent placements for progressive disease. History of coronary disease as well. She has history of smoking for almost 30 years but she quit smoking more than 20 years ago. 08/02/23: Feels better Has dysuria - this started after staring SGLT-2 inhibitor [facility] Medical History Chronic kidney disease, stage 4 (severe) Chronic kidney disease, stage III (moderate) Atrophic vaginitis Orbital fracture Upper GI bleeding Hearing impairment Seizure Recurrent urinary tract infection Overweight (BMI 25.0-29.9) Vitamin D deficiency Allergic rhinitis Meralgia paresthetica of right side Anemia GERD without esophagitis Asthma Hyperkalemia Diabetic polyneuropathy associated with type 2 diabetes mellitus Peripheral vascular disease Pure hypercholesterolemia Benign essential hypertension Carotid atherosclerosis Coronary artery disease (~06/09/21) Type 2 diabetes mellitus with diabetic polyneuropathy Surgical History Hx of colonoscopy History of endoscopy S/P CABG x 4 (~06/09/21) History of cardiac catheterization History of left-sided carotid endarterectomy S/P LASIK surgery History of right-sided carotid endarterectomy History of laparoscopic cholecystectomy Family History Father CVD (cardiovascular disease) Mother Stroke Brother CVD (cardiovascular disease) Esophageal cancer Social History Household Members: Children Housing: House Are you a primary career and technology education teacher to a significant other at home: No Do you presently have visiting nurse or other home services: No Alcohol intake: never Comment: cardiac Patient Tobacco Use Status: Former Tobacco user Quit Date: 34 years ago Tobacco use type: Cigarette e-Cigarette/Vaping Use: Never Used Second Hand Smoke Exposure: No Advance Directives Date on File: 01/11/22 service: No Current occupational status: retired 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 Cognitive needs: No Hearing needs: No Vision needs: No Vital Signs 08/02/23 10:29 Height 5 ft 2 in Weight 157 lb 2 oz BMI 28.7 BP 120/52 L Blood Pressure Location Lt brachial Position Sitting Pulse 62 Pulse Source Pulse Oximeter Pulse Oximetry (%) 95 Oxygen Delivery Method Room Air Physical Exam Vital Signs: Last Vital Signs Pulse 62 08/02/23 10:29 BP 120/52 L 08/02/23 10:29 Pulse Ox 95 08/02/23 10:29 Oxygen Delivery Method Room Air 08/02/23 10:29 BMI result Body Mass Index 28.7 Assessment & Plan Assessment & Plan (1) Chronic kidney disease, stage 4 (severe): Code(s): N18.4 - Chronic kidney disease, stage 4 (severe) (2) Anemia: Code(s): D64.9 - Anemia, unspecified Qualifiers: Anemia type: unspecified type Qualified Code(s): D64.9 - Anemia, unspecified (3) Chronic kidney disease, stage III (moderate): Code(s): N18.30 - Chronic kidney disease, stage 3 unspecified Qualifiers: Chronic kidney disease stage 3 subtype: stage 3b (GFR 30-44) Qualified Code(s): N18.32 - Chronic kidney disease, stage 3b (4) Hyperkalemia: Code(s): E87.5 - Hyperkalemia (5) Peripheral vascular disease: Code(s): I73.9 - Peripheral vascular disease, unspecified (6) Coronary artery disease: Onset Date: ~06/09/21 Comment: S/P stenting of ostial LAD; S/P CABG x 4 (RODRIGUEZ-mid LAD, SVG-PLV, left radial artery-OM, SVG-diag) on 06/09/21 Code(s): I25.10 - Atherosclerotic heart disease of [place] coronary artery without angina pectoris Qualifiers: Associated angina: without angina Coronary Disease-Associated Artery/Lesion type: [place] artery [place] vs. transplanted heart: [place] heart Qualified Code(s): I25.10 - Atherosclerotic heart disease of [place] coronary artery without angina pectoris (7) Carotid atherosclerosis: Comment: S/P left carotid revascularization and endarterectomy in 2019 Code(s): I65.29 - Occlusion and stenosis of unspecified carotid artery Qualifiers: Laterality: left Qualified Code(s): I65.22 - Occlusion and stenosis of left carotid artery Plan 82-year-old woman with CKD in a setting of hypertension longstanding diabetes mellitus and peripheral vascular disease. Baseline creatinine is around 1.0 mg/dL. Recently the small bump in serum creatinine up to 1.4. Potassium is also elevated at 5.2. The differential diagnosis for the acute kidney injury would include hypoperfusion. However despite discontinuing Diovan has been no improvement in the creatinine. Obstructive uropathy should be ruled out in this elderly woman. Other possibilities including underlying renovascular disease should be considered. Based on the urine findings I do not believe she has any active glomerulonephritis or interstitial disease at this time. Recommendations Obtain renal ultrasonogram.- Scheduled for 08/17/23 Based on ultrasonogram will arrange for renal Doppler if indicated. Low-potassium diet. Increase fluid intake. Avoid nephrotoxins including NSAIDs. Recheck renal panel today. Urine culture ordered. Orders: Orders Electrolytes Today B96.89 - Other specified bacterial agents as the cause of diseases classified elsewhere, E87.5 - Hyperkalemia, N18.4 - Chronic kidney disease, stage 4 (severe), N39.0 - Urinary tract infection, site not specified Creatinine Today B96.89 - Other specified bacterial agents as the cause of diseases classified elsewhere, E87.5 - Hyperkalemia, N18.4 - Chronic kidney disease, stage 4 (severe), N39.0 - Urinary tract infection, site not specified Calcium Today B96.89 - Other specified bacterial agents as the cause of diseases classified elsewhere, E87.5 - Hyperkalemia, N18.4 - Chronic kidney disease, stage 4 (severe), N39.0 - Urinary tract infection, site not specified Complete Blood Count no Diff Today B96.89 - Other specified bacterial agents as the cause of diseases classified elsewhere, E87.5 - Hyperkalemia, N18.4 - Chronic kidney disease, stage 4 (severe), N39.0 - Urinary tract infection, site not specified Urine Culture Today B96.89 - Other specified bacterial agents as the cause of diseases classified elsewhere, N39.0 - Urinary tract infection, site not specified Blood Urea Nitrogen Today B96.89 - Other specified bacterial agents as the cause of diseases classified elsewhere, E87.5 - Hyperkalemia, N18.4 - Chronic kidney disease, stage 4 (severe), N39.0 - Urinary tract infection, site not specified Total Protein Urine Random Today B96.89 - Other specified bacterial agents as the cause of diseases classified elsewhere, E87.5 - Hyperkalemia, N18.4 - Chronic kidney disease, stage 4 (severe), N39.0 - Urinary tract infection, site not specified Creatinine Urine Today B96.89 - Other specified bacterial agents as the cause of diseases classified elsewhere, E87.5 - Hyperkalemia, N18.4 - Chronic kidney disease, stage 4 (severe), N39.0 - Urinary tract infection, site not specified UA and rflx microscopic Today B96.89 - Other specified bacterial agents as the cause of diseases classified elsewhere, E87.5 - Hyperkalemia, N18.4 - Chronic kidney disease, stage 4 (severe), N39.0 - Urinary tract infection, site not specified Parathyroid Hormone Intact Today B96.89 - Other specified bacterial agents as the cause of diseases classified elsewhere, E87.5 - Hyperkalemia, N18.4 - Chronic kidney disease, stage 4 (severe), N39.0 - Urinary tract infection, site not specified Coding Level of Care Code Est Pt Level 3 (62860) Diagnoses Chronic kidney disease, stage 4 (severe) N18.4 Anemia, unspecified type D64.9 Anemia type: unspecified type Stage 3b chronic kidney disease N18.32 Chronic kidney disease stage 3 subtype: stage 3b (GFR 30-44) Hyperkalemia E87.5 Peripheral vascular disease I73.9 Coronary artery disease involving [place] coronary artery of [place] heart without angina pectoris I25.10 Associated angina: without angina Coronary Disease-Associated Artery/Lesion type: [place] artery [place] vs. transplanted heart: [place] heart Atherosclerosis of left carotid artery I65.22 Laterality: left Results Reviewed Nephrology Results: Hgb 11.3 g/dl (12.0-16.0) L 07/09/23 WBC 7.4 X10*3/uL (4.8-10.8) 07/09/23 Plt Count 279 X10*3/uL (160-400) 07/09/23 Sodium 141 mmol/L (135-145) 07/09/23 Potassium 5.2 mmol/L (3.3-5.1) H 07/09/23 Chloride 108 mmol/L (96-108) 07/09/23 Carbon Dioxide 26 mmol/L (22-29) 07/09/23 BUN 33 mg/dL (9-16) H 07/09/23 Creatinine 1.78 mg/dL (0.5-1.4) H 07/09/23 Calcium 9.5 mg/dL (8.4-10.2) 07/09/23 Urine Protein Negative mg/dL (Neg-Trace) 07/09/23 Urine Creatinine 138.14 mg/dL 07/09/23
== END 2023-08-02 10:51 | disposition home or self-care (01) ==
PROVIDERS: PCP Internal Medicine; Visit Provider Internal Medicine Hypertension Specialist
DX: N18.4 Chronic kidney disease, stage 4 (severe) (principal); D64.9 Anemia, unspecified; N18.32 Chronic kidney disease, stage 3b; E87.5 Hyperkalemia; I73.9 Peripheral vascular disease, unspecified; I25.10 Atherosclerotic heart disease of native coronary artery without angina pectoris; I65.22 Occlusion and stenosis of left carotid artery
CPT/HCPCS: 99213

== ENCOUNTER 2023-08-02 11:05 | Outpatient (REF) | payer MEDICARE, OTHER, SELFPAY ==
[2023-08-02 13:41] LABS: Anion Gap 14 (12-20); Blood Urea Nitrogen 36 mg/dL (9-16); Carbon Dioxide 25 mmol/L (22-29); Chloride 105 mmol/L (96-108); Estimated Glomerular Filt Rate 39; Potassium 4.2 mmol/L (3.3-5.1); Sodium 140 mmol/L (135-145)
[2023-08-02 13:50] LABS: Hematocrit 34.1 % (37.0-47.0); Hemoglobin 10.8 g/dl (12.0-16.0); Mean Corpuscular HGB Conc 31.7 g/dl (31.0-35.0); Mean Corpuscular Volume 91.7 fL (80.0-98.0); Mean Platelet Volume 8.9 fL (9.4-12.3); Platelet Count 284 X10*3/uL (160-400); Red Blood Count 3.72 X10*6/uL (4.20-5.50); Red Cell Distribution Width 13.2 % (11.0-16.0); White Blood Count 5.9 X10*3/uL (4.8-10.8)
[2023-08-02 14:14] LABS: Parathyroid Hormone Intact 88.4 pg/mL (8.7-77.1)
[2023-08-02 15:01] LABS: Appearance Urine Clear; Color Urine Yellow; Glucose Urine UA >=1000 mg/dL (Negative); Leukocyte Esterase Urine Small (1+) (Negative); Nitrite Urine Negative (Negative); PH 5.5 (5.0-9.0); Specific Gravity - Urine 1.025 (1.005-1.025); UMIC TRIGGER UA YES; Urine Blood Negative (Negative); Urine Ketones Negative (Negative); Urine Protein Negative (Neg-Trace)
[2023-08-02 15:06] LABS: Bacteria Urine 4+ (None Seen); Hyaline Casts Urine 0-2 /LPF (0-2); RBC Urine 0-2 /HPF (0-2); WBC Urine >50 /HPF (0-5)
[2023-08-02 15:24] LABS: Total Protein Urine Random 8 mg/dL (<12)
== END 2023-08-02 11:06 | disposition home or self-care (01) ==
LOC: HO.10HDL 11:05
PROVIDERS: Visit Provider Internal Medicine Hypertension Specialist
DX: Z13.89 Encounter for screening for other disorder (principal)
CPT/HCPCS: 36415; 80051; 81001; 81003; 82310; 82565; 82570; 83970; 84156; 84520; 85027; 87086; 87088; 87186

== ENCOUNTER 2023-08-02 11:33 | Emergency (ER) | payer MEDICARE, OTHER, SELFPAY ==
--- NOTE | ~2023-08-02 | CT_ITS ---
CT HEAD WITHOUT IV CONTRAST CT CERVICAL SPINE WITHOUT IV CONTRAST CT MAXILLOFACIAL WITHOUT IV CONTRAST INDICATION: Fall. Nasal abrasion. COMPARISON: None available. TECHNIQUE: Multidetector CT acquisitions of the head, maxillofacial region, and cervical spine were obtained without IV contrast. Multiplanar reformats were acquired and utilized for image interpretation. This CT examination was performed using dose optimization techniques as appropriate, variously including the following: *Automated exposure control *Adjustment of mA and/or kV according to patient size (this includes techniques or standardized protocols for targeted exams where dose is matched to indication/reason for exam; i.e. extremities or head) *Use of iterative reconstruction technique FINDINGS: HEAD: There is no intracranial hemorrhage, hydrocephalus, extra-axial surface collection, midline shift, or other herniation pattern. Levy to white matter differentiation is diffusely maintained without evidence of an evolved acute territorial infarct. The basilar cisterns are preserved. No significant soft tissue abnormality. No acute osseous abnormality. The paranasal sinuses and the mastoid air cells are well aerated. MAXILLOFACIAL: There are displaced nasal bone fractures bilaterally. No additional maxillofacial fractures. There is nasal soft tissue swelling. No additional maxillofacial fractures. Chronic traumatic deformity of the left orbital floor. CERVICAL SPINE: There are no acute fractures and there are no acute subluxations. Straightening of the cervical lordosis. The vertebral body heights are maintained. There is severe disc volume loss at C6-C7 and there is moderate disc volume loss at C5-C6. Multilevel endplate osteophytes. Hypertrophic degenerative changes involving the atlantodental interval. Mild streaky atelectasis involving the lung bases. Atherosclerotic calcification involving the partially imaged cervical arterial vasculature. Surgical clips within the neck bilaterally. CT/CT cervical spine wo IV con IMPRESSION: - No acute intracranial abnormality. - No acute osseous abnormality within the cervical spine. - There are displaced nasal bone fractures bilaterally. No additional maxillofacial fractures. There is nasal soft tissue swelling. Chronic traumatic deformity of the left orbital floor.
--- NOTE | ~2023-08-02 | XR_ITS ---
EXAMINATION: XR KNEE, LEFT CLINICAL INFORMATION: Patient fell. Pain COMPARISON: None available. TECHNIQUE: Four views of the left knee. FINDINGS: No fracture, dislocation or destructive lesion or joint effusion. Vascular calcifications are noted. XR/XR knee LT 4V IMPRESSION: Unremarkable study.
[2023-08-02 11:40] VITALS: BP 172/42; PULSE 64; RESP 20; TEMP 36.1; O2SAT 99; BMI 28.7
--- NOTE | 2023-08-02 11:40 | ED_ITS ---
HPI - General Adult General Chief complaint: Fall Stated complaint: Fall today Time Seen by Provider: 08/02/23 16:03 Source: patient, RN notes reviewed and old records reviewed Mode of arrival: ambulatory Limitations: no limitations History of Present Illness HPI narrative: 82-year-old female presents for evaluation after a fall. Patient reports that she was actually walking to her doctor's appointment today She felt her foot got caught on something on the pavement She fell forward and landed on her face She states that she felt woozy but did not lose consciousness She also injured her left knee She complains of a mild headache Denies any prodrome of dizziness, chest pain, shortness of breath No other complaints or concerns at this time Related Data Home Medications Medication Instructions Recorded Confirmed latanoprost 0.005 % eye drops 1 drp ophthalmic (eye) BEDTIME 07/26/20 07/11/23 nitroglycerin 0.4 mg sublingual 0.3 mg sublingual DAILY PRN Angina 07/26/20 07/11/23 tablet Previous Rx's Medication Instructions Recorded triamcinolone acetonide 0.1 % 1 appl topical BID #60 mL 09/19/21 lotion blood sugar diagnostic (FreeStyle #100 ea 04/20/22 Lite Strips) atorvastatin 80 mg tablet 80 mg PO BEDTIME 90 days #90 tabs 08/25/22 cholecalciferol (vitamin D3) 50 50 mcg PO DAILY 90 days #90 caps 08/25/22 mcg (2,000 unit) capsule albuterol sulfate 2.5 mg/3 mL 2.5 mg (3 mL) inhalation QID PRN 10/20/22 (0.083 %) solution for nebulization shortness of breath or wheezing #180 mL albuterol sulfate 90 mcg/actuation 2 puff inhalation Q6H PRN 10/20/22 aerosol inhaler shortness of breath or wheezing 30 days #8.5 grams ondansetron 4 mg disintegrating 4 mg PO Q8H PRN nausea and 12/12/22 tablet vomiting 15 days #45 tabs loratadine 10 mg tablet 10 mg PO DAILY PRN allergy 02/17/23 symptoms 90 days #90 tabs metoprolol succinate 50 mg 50 mg PO DAILY #90 tabs 02/23/23 tablet,extended release 24 hr methylcellulose (laxative) 500 mg 500 mg PO DAILY #90 tabs 04/03/23 tablet (Citrucel) pantoprazole 40 mg tablet,delayed 40 mg PO DAILY #90 tabs 04/03/23 release sucralfate 1 gram tablet 1 g PO BEDTIME 30 days #90 tabs 04/03/23 clopidogrel 75 mg tablet 75 mg PO DAILY 90 days #90 tabs 05/02/23 glyburide 2.5 mg tablet 2.5 mg PO DAILY 90 days #90 tabs 05/02/23 Farxiga 10 mg tablet 10 mg PO QAM 90 days #90 tabs 07/11/23 (dapagliflozin propanediol) azithromycin 250 mg tablet See Rx Instructions PO .COMPLEX #6 08/02/23 tabs Allergies Allergy/AdvReac Type Severity Reaction Status Date / Time doxycycline Allergy Mild Vomiting Verified 08/02/23 10:32 levetiracetam [From Keppra] Allergy Mild Vomiting Verified 08/02/23 10:32 amoxicillin Allergy Unknown rash Verified 08/02/23 10:32 Penicillins Allergy Unknown rash Verified 08/02/23 10:32 prednisone Allergy Unknown rash Verified 08/02/23 10:32 ceftriaxone [From Rocephin] Allergy Rash Verified 08/02/23 10:32 milk Allergy Unknown Verified 08/02/23 10:32 omeprazole AdvReac Unknown worsening Verified 08/02/23 10:32 heartburn ranitidine AdvReac Unknown worsening Verified 08/02/23 10:32 heartburn, abdominal pain (ONLY to generic) Review of Systems Constitutional: Constitutional: Denies chills, Denies fever(s), Denies frequent falls and Reports headache(s) Eyes: Eyes: Denies blurry vision ENT: Reports headache(s), Reports nasal trauma and Denies neck pain Cardiovascular: Cardiovascular: Denies chest pain, Denies syncope and Denies dyspnea Respiratory: Respiratory: Denies cough and Denies dyspnea Gastrointestinal: Gastrointestinal: Denies abdominal pain, Denies nausea and Denies vomiting Musculoskeletal: Musculoskeletal: Denies back pain and Denies neck pain Integumentary/Breasts: Skin/Breast: Denies rash Neurologic: Denies syncope, Denies frequent falls and Reports headache(s) PMFSH Past Medical History Medical History Chronic kidney disease, stage 4 (severe) Chronic kidney disease, stage III (moderate) Atrophic vaginitis Orbital fracture Upper GI bleeding Hearing impairment Seizure Recurrent urinary tract infection Overweight (BMI 25.0-29.9) Vitamin D deficiency Allergic rhinitis Meralgia paresthetica of right side Anemia GERD without esophagitis Asthma Hyperkalemia Diabetic polyneuropathy associated with type 2 diabetes mellitus Peripheral vascular disease Pure hypercholesterolemia Benign essential hypertension Carotid atherosclerosis Coronary artery disease (~06/09/21) Type 2 diabetes mellitus with diabetic polyneuropathy Surgical History Hx of colonoscopy History of endoscopy S/P CABG x 4 (~06/09/21) History of cardiac catheterization History of left-sided carotid endarterectomy S/P LASIK surgery History of right-sided carotid endarterectomy History of laparoscopic cholecystectomy Family History Family History Father CVD (cardiovascular disease) Mother Stroke Brother CVD (cardiovascular disease) Esophageal cancer Social History Social History Household Members: Children Housing: House Are you a primary interior plant caretaker to a significant other at home: No Do you presently have visiting nurse or other home services: No Alcohol intake: never Comment: cardiac Patient Tobacco Use Status: Former Tobacco user Quit Date: 34 years ago Tobacco use type: Cigarette e-Cigarette/Vaping Use: Never Used Second Hand Smoke Exposure: No Advance Directives: Yes Advance Directives on File: Yes Advance Directives Date on File: 01/11/22 service: No Current occupational status: retired 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 Cognitive needs: No Hearing needs: No Vision needs: No Physical Exam ED Vital Signs: Vital Signs - 24 hr 08/02/23 11:40 08/02/23 15:30 Temperature 97.0 F 97.8 F Pulse Rate 64 56 Respiratory Rate 20 18 Blood Pressure 172/42 H 151/61 H Pulse Oximetry 99 99 Oxygen Delivery Method Room Air Room Air BMI result Body Mass Index 28.7 Const General: healthy appearing, comfortable, no acute distress, alert and awake Nutritional Appearance: well nourished Orientation/consciousness: patient oriented x3 HENMT Head: Yes No palpable skull fracture present and No atraumatic General nose exam: Abnormal external nose present nasal abrasion, nasal deviation, nasal tenderness and nasal swelling Throat: Yes posterior oropharynx normal Eyes Eyelids: Yes eyelids normal Conjunctivae: conjunctivae normal Sclerae: sclerae normal Corneas: corneas normal Pupils: Equal, round and reactive pupils present EOM: EOMs intact bilaterally Neck Neck: Yes full ROM Resp Effort & Inspection: normal respiratory effort, able to speak in complete sentences, no audible wheezes and not labored Auscultation: clear to auscultation bilaterally Cardio Rate: regular rate Rhythm: regular rhythm GI Inspection: No distended Palpation (GI): Soft to palpation, not firm, nontender, no guarding and not rigid Skin General skin exam: elasticity normal Neuro General: patient oriented x3 Cranial nerves: Yes CN's II-XII intact bilaterally, Yes Equal, round and reactive pupils present and Yes Bilaterally intact EOM present Cognition (Neuro): normal cognition Extrem Other: Moving all extremities well without any obvious deformities Course Course Course Narrative: This is a rapid medical exam: Additional HPI, ROS, PE not included below will be deferred to primary provider. Patient is an 82-year-old female with history of CKD stage 4, seizures, T2DM states that she was walking [address] to see her PCP, when she tripped over an edge of the sidewalk. She is currently on clopidogrel. Denies loss of consciousness. Abrasions to nose, left knee. Patient reports epistaxis as well which has since resolved. Daughter was in the car, did not witness fall. Plan: CT head and neck, left knee x-ray Medical Decision Making Medical Decision Making MDM Narrative: 82-year-old female presents for evaluation after a fall. There was no reported loss of consciousness. She is adamant that she got her foot caught on the pavement leading to her trip, this is a nonsyncopal fall. The patient's daughter is with her who corroborates her story. I do not see any indication for further workup other than imaging for ruling out traumatic injuries. Patient is CT scan of brain, facial bones, cervical spine and x-ray the left knee. These are significant only for bilateral nasal fracture. The patient be discharged with azithromycin to prevent sinusitis. Denies any chest pain, shortness of breath. I discussed potential case management and physical therapy evaluation for possible rehab in the patient and daughter both decline. The patient would prefer to be discharged home. Differential Diagnosis Differential Diagnoses: The differential diagnosis associated with the presentation includes Mechanical fall Syncope Intracranial hemorrhage Calvarial fracture Facial fracture Nasal fracture cervical fracture Knee sprain Contusion Independent Interpretation I performed an independent interpretation of an: CT Scan (Agree with Radiology interpretation) Radiology Impression Discussion of test interpretation with radiology: I have reviewed the radiologist's reading. (Bilateral nasal fractures. Chronic left orbital floor fracture) Tests considered The following testing was considered but not selected: Considered labs, EKG, over this was a mechanical fall so patient drip leading to the fall. There was no syncopal episode or prodrome Prescription Management I considered prescription management with: Pain Medication and Antibiotic Discharge Plan Discharge Clinical Impression: Fall, Fracture of nasal bones Patient Disposition: Home, Self-Care Instructions: Nasal Fracture (ED) Additional Instructions: Your CT scans were only significant for bilateral nasal fractures. Take Azithromycin as prescriebd to prevent sinus infection. You should not be blowing your nose. Follow up with ENT Prescriptions: New azithromycin 250 mg tablet See Rx Instructions .ROUTE .COMPLEX Qty: 6 0RF Rx Instructions: For 250 mg dose pack: take 500 mg today (day 1), then 250 mg for 4 days (days 2-5) No Action albuterol sulfate 2.5 mg /3 mL (0.083 %) solution for nebulization 2.5 mg inhalation QID PRN (Reason: shortness of breath or wheezing) Qty: 180 0RF albuterol sulfate 90 mcg/actuation HFA aerosol inhaler 2 puff inhalation Q6H PRN (Reason: shortness of breath or wheezing) 30 Days Qty: 8.5 5RF loratadine 10 mg tablet 10 mg PO DAILY PRN (Reason: allergy symptoms) 90 Days Qty: 90 3RF metoprolol succinate 50 mg tablet extended release 24 hr 50 mg PO DAILY Qty: 90 1RF glyburide 2.5 mg tablet 2.5 mg PO DAILY 90 Days Qty: 90 1RF clopidogrel 75 mg tablet 75 mg PO DAILY 90 Days Qty: 90 3RF latanoprost 0.005 % drops 1 drp ophthalmic (eye) BEDTIME nitroglycerin 0.4 mg tablet, sublingual 0.3 mg sublingual DAILY PRN (Reason: Angina) triamcinolone acetonide 0.1 % lotion 1 appl topical BID Qty: 60 3RF (DME) FreeStyle Lite Strips Strip See Rx Instructions .Route Qty: 100 12RF Rx Instructions: As directed- to test blood sugar TID ondansetron 4 mg tablet,disintegrating 4 mg PO Q8H PRN (Reason: nausea and vomiting) 15 Days Qty: 45 3RF atorvastatin 80 mg tablet 80 mg PO BEDTIME 90 Days Qty: 90 3RF cholecalciferol (vitamin D3) 50 mcg (2,000 unit) capsule 50 mcg PO DAILY 90 Days Qty: 90 3RF Farxiga 10 mg tablet 10 mg PO QAM 90 Days Qty: 90 1RF pantoprazole 40 mg tablet,delayed release (DR/EC) 40 mg PO DAILY Qty: 90 3RF sucralfate 1 gram tablet 1 g PO BEDTIME 30 Days Qty: 90 3RF Citrucel 500 mg tablet 500 mg PO DAILY Qty: 90 2RF Rx Instructions: take it with full glass of water Referrals: Lloyd Enamorado [Physician] - (Nasal Fractures)
[2023-08-02 15:30] VITALS: BP 151/61; PULSE 56; RESP 18; TEMP 36.6; O2SAT 99
[2023-08-02] MEDS: Acetaminophen 325 MG TABLET 975 MG PO (16:58)
== END 2023-08-02 17:18 | disposition home or self-care (01) ==
PROVIDERS: Emergency Provider Internal Medicine; PCP Internal Medicine
DX: S02.2XXA Fracture of nasal bones, initial encounter for closed fracture (principal); R51.9 Headache, unspecified; M54.2 Cervicalgia; M25.562 Pain in left knee; W01.10XA Fall on same level from slipping, tripping and stumbling with subsequent striking against unspecified object, initial encounter; Y93.9 Activity, unspecified; Y92.9 Unspecified place or not applicable; Y99.9 Unspecified external cause status; Z79.899 Other long term (current) drug therapy
CPT/HCPCS: 36415; 70450; 70486; 72125; 73564; 80051; 81001; 82310; 82565; 82570; 83970; 84156; 84520; 85027; 87086; 87088; 87186; 99212; 99284

== ENCOUNTER 2023-08-17 09:36 | Outpatient (REF) | payer MEDICARE, OTHER, SELFPAY ==
--- NOTE | ~2023-08-17 | US_ITS ---
EXAMINATION: US RETROPERITONEAL LIMITED (RENAL ONLY) CLINICAL INFORMATION: Acute kidney failure, unspecified. COMPARISON: CTA abdomen and pelvis 12/02/2021. TECHNIQUE: Real-time imaging of the kidneys. FINDINGS: RIGHT KIDNEY: 9.3 x 4.3 x 4.0 cm (SAG x AP x TRV). The kidney is normal in size, contour, and echogenicity. Renal cortical thickness is normal. No renal calculi or hydronephrosis. 1.1 cm simple cyst in the lower pole. No follow-up imaging is recommended. LEFT KIDNEY: 10.0 x 5.1 x 4.1 cm (SAG x AP x TRV). The kidney is normal in size, contour, and echogenicity. Renal cortical thickness is normal. No calculi or focal parenchymal lesions. No hydronephrosis. US/US renal BI IMPRESSION: No hydronephrosis.
== END 2023-08-17 09:37 | disposition home or self-care (01) ==
LOC: HO.US 09:36
PROVIDERS: PCP Internal Medicine; Visit Provider Internal Medicine Hypertension Specialist
DX: N17.9 Acute kidney failure, unspecified (principal); D64.9 Anemia, unspecified
CPT/HCPCS: 76775

== ENCOUNTER 2023-09-17 11:19 | Outpatient (AMB) | payer MEDICARE, OTHER, SELFPAY ==
[2023-09-17 11:21] VITALS: BP 120/62; PULSE 56; O2SAT 95; BMI 28.9
--- NOTE | 2023-09-17 11:21 | HO.NEPHOV_ITS ---
HPI HPI Comments History of Present Illness Details 82-year-old woman with a history of long standing diabetes mellitus for more than 30 years along with hypertension and peripheral vascular disease. She was on losartan for quite some time. Recently was shortness discontinued due to a bump in the creatinine. She was on metformin which has been held due to worsening serum creatinine. Farxiga has been added. She has increased urination otherwise no other issues. She was accompanied by her daughter today. She has extensive to vascular disease undergone stent placements for progressive disease. History of coronary disease as well. She has history of smoking for almost 30 years but she quit smoking more than 20 years ago. 08/02/23: Feels better Has dysuria - this started after staring SGLT-2 inhibitor 09/17/23: [facility] Medical History Chronic kidney disease, stage 4 (severe) Chronic kidney disease, stage III (moderate) Atrophic vaginitis Orbital fracture Upper GI bleeding Hearing impairment Seizure Recurrent urinary tract infection Overweight (BMI 25.0-29.9) Vitamin D deficiency Allergic rhinitis Meralgia paresthetica of right side Anemia GERD without esophagitis Asthma Hyperkalemia Diabetic polyneuropathy associated with type 2 diabetes mellitus Peripheral vascular disease Pure hypercholesterolemia Benign essential hypertension Carotid atherosclerosis Coronary artery disease (~06/09/21) Type 2 diabetes mellitus with diabetic polyneuropathy Surgical History Hx of colonoscopy History of endoscopy S/P CABG x 4 (~06/09/21) History of cardiac catheterization History of left-sided carotid endarterectomy S/P LASIK surgery History of right-sided carotid endarterectomy History of laparoscopic cholecystectomy Family History Father CVD (cardiovascular disease) Mother Stroke Brother CVD (cardiovascular disease) Esophageal cancer Social History Household Members: Children Housing: House Are you a primary doggy daycare activities director to a significant other at home: No Do you presently have visiting nurse or other home services: No Alcohol intake: never Comment: cardiac Patient Tobacco Use Status: Former Tobacco user Quit Date: 34 years ago Tobacco use type: Cigarette e-Cigarette/Vaping Use: Never Used Second Hand Smoke Exposure: No Advance Directives Date on File: 01/11/22 service: No Current occupational status: retired 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 Cognitive needs: No Hearing needs: No Vision needs: No Vital Signs 09/17/23 11:21 Height 5 ft 2 in Weight 158 lb BMI 28.9 BP 120/62 Blood Pressure Location Lt brachial Position Sitting Pulse 56 Pulse Source Pulse Oximeter Pulse Oximetry (%) 95 Oxygen Delivery Method Room Air Physical Exam Vital Signs: BMI result Body Mass Index 28.9 Const General: comfortable; No acute distress Orientation/consciousness: patient oriented x3 Eyes General: appearance normal, both eyes and all related structures Visual Marie: normal visual marie by confrontation Neck Neck: Yes supple and Yes no JVD Resp Effort & Inspection: normal respiratory effort and respiratory effort not decreased Auscultation: rhonchi Cardio Palpation: no palpable S3 and no palpable S4 Heart sounds: no rubs GI Inspection: Yes normal to inspection Palpation (GI): Soft to palpation Percussion: Yes normal to percussion Auscultation: normal bowel sounds General: Yes no CVA tenderness Back/Spine/Pelvis Back: no CVA tenderness Skin General skin exam: no petechiae and no purpura Neuro General: patient oriented x3 and no focal motor deficits Extrem General: No clubbing and No edema Assessment & Plan Assessment & Plan (1) Chronic kidney disease, stage 4 (severe): Code(s): N18.4 - Chronic kidney disease, stage 4 (severe) (2) Anemia: Code(s): D64.9 - Anemia, unspecified Qualifiers: Anemia type: unspecified type Qualified Code(s): D64.9 - Anemia, unspecified (3) Chronic kidney disease, stage III (moderate): Code(s): N18.30 - Chronic kidney disease, stage 3 unspecified Qualifiers: Chronic kidney disease stage 3 subtype: stage 3b (GFR 30-44) Qualified Code(s): N18.32 - Chronic kidney disease, stage 3b (4) Hyperkalemia: Code(s): E87.5 - Hyperkalemia (5) Peripheral vascular disease: Code(s): I73.9 - Peripheral vascular disease, unspecified (6) Coronary artery disease: Onset Date: ~06/09/21 Comment: S/P stenting of ostial LAD; S/P CABG x 4 (RODRIGUEZ-mid LAD, SVG-PLV, left radial artery-OM, SVG-diag) on 06/09/21 Code(s): I25.10 - Atherosclerotic heart disease of [place] coronary artery without angina pectoris Qualifiers: Associated angina: without angina Coronary Disease-Associated Artery/Lesion type: [place] artery [place] vs. transplanted heart: [place] heart Qualified Code(s): I25.10 - Atherosclerotic heart disease of [place] coronary artery without angina pectoris (7) Carotid atherosclerosis: Comment: S/P left carotid revascularization and endarterectomy in 2019 Code(s): I65.29 - Occlusion and stenosis of unspecified carotid artery Qualifiers: Laterality: left Qualified Code(s): I65.22 - Occlusion and stenosis of left carotid artery Plan 82-year-old woman with CKD in a setting of hypertension longstanding diabetes mellitus and peripheral vascular disease. Baseline creatinine is around 1.0 mg/dL. Recently the small bump in serum creatinine up to 1.4. Potassium was also elevated at 5.2. The differential diagnosis for the acute kidney injury would include hypoperfusion. Creatinine has improved BP is well controlled Obstructive uropathy ruled out Based on the urine findings I do not believe she has any active glomerulonephritis or interstitial disease at this time. Recently had UTI- treadted with Bactrim Glycosuria due to SGLT-2 inhibitor NO PRoteinuria Potassium is better controlled Recommendations Maintain BP < 130/80 and A1C < 7% No indication for renal Doppler at t hsi time. Low-potassium diet. Increase fluid intake. Avoid nephrotoxins including NSAIDs. Coding Level of Care Code Est Pt Level 4 (03675) Diagnoses Chronic kidney disease, stage 4 (severe) N18.4 Anemia, unspecified type D64.9 Anemia type: unspecified type Stage 3b chronic kidney disease N18.32 Chronic kidney disease stage 3 subtype: stage 3b (GFR 30-44) Hyperkalemia E87.5 Peripheral vascular disease I73.9 Coronary artery disease involving [place] coronary artery of [place] heart without angina pectoris I25.10 Associated angina: without angina Coronary Disease-Associated Artery/Lesion type: [place] artery [place] vs. transplanted heart: [place] heart Atherosclerosis of left carotid artery I65.22 Laterality: left Results Reviewed Results Reviewed: Renal USG ;Jul 2023 RIGHT KIDNEY: 9.3 x 4.3 x 4.0 cm (SAG x AP x TRV). The kidney is normal in size, contour, and echogenicity. Renal cortical thickness is normal. No renal calculi or hydronephrosis. 1.1 cm simple cyst in the lower pole. No follow-up imaging is recommended. LEFT KIDNEY: 10.0 x 5.1 x 4.1 cm (SAG x AP x TRV). The kidney is normal in size, contour, and echogenicity. Renal cortical thickness is normal. No calculi or focal parenchymal lesions. No hydronephrosis. US/US renal BI IMPRESSION: No hydronephrosis. Nephrology Results: Hgb 10.8 g/dl (12.0-16.0) L 08/02/23 WBC 5.9 X10*3/uL (4.8-10.8) 08/02/23 Plt Count 284 X10*3/uL (160-400) 08/02/23 Sodium 140 mmol/L (135-145) 08/02/23 Potassium 4.2 mmol/L (3.3-5.1) 08/02/23 Chloride 105 mmol/L (96-108) 08/02/23 Carbon Dioxide 25 mmol/L (22-29) 08/02/23 BUN 36 mg/dL (9-16) H 08/02/23 Creatinine 1.32 mg/dL (0.5-1.4) 08/02/23 Calcium 9.0 mg/dL (8.4-10.2) 08/02/23 PTH Intact 88.4 pg/mL (8.7-77.1) H 08/02/23 Urine Protein Negative mg/dL (Neg-Trace) 08/02/23 Urine Creatinine 50.70 mg/dL 08/02/23 Renal US 08/17/23
== END 2023-09-17 11:39 | disposition home or self-care (01) ==
PROVIDERS: PCP Internal Medicine; Visit Provider Internal Medicine Hypertension Specialist
DX: N18.4 Chronic kidney disease, stage 4 (severe) (principal); D64.9 Anemia, unspecified; N18.32 Chronic kidney disease, stage 3b; E87.5 Hyperkalemia; I73.9 Peripheral vascular disease, unspecified; I25.10 Atherosclerotic heart disease of native coronary artery without angina pectoris; I65.22 Occlusion and stenosis of left carotid artery
CPT/HCPCS: 99214

== ENCOUNTER → 2023-09-17 11:19 | Outpatient (BNVA) | payer MEDICARE, OTHER, SELFPAY | PROVIDERS: PCP Internal Medicine; Visit Provider Internal Medicine Hypertension Specialist | DX: N18.4 Chronic kidney disease, stage 4 (severe) (principal); D64.9 Anemia, unspecified; E87.5 Hyperkalemia; I73.9 Peripheral vascular disease, unspecified; I25.10 Atherosclerotic heart disease of native coronary artery without angina pectoris; I65.22 Occlusion and stenosis of left carotid artery | CPT/HCPCS: 99212 ==

== ENCOUNTER 2023-10-19 09:04 | Outpatient (REF) | payer MEDICARE, OTHER, SELFPAY ==
[2023-10-19 11:06] LABS: MANUAL DIFF FLAG NO
[2023-10-19 11:32] LABS: Appearance Urine Clear; Color Urine Yellow; Glucose Urine UA >=1000 mg/dL (Negative); Leukocyte Esterase Urine Trace (Negative); Nitrite Urine Negative (Negative); Specific Gravity - Urine 1.025 (1.005-1.025); UMIC TRIGGER UACC YES; Urine Blood Negative (Negative); Urine Ketones Negative (Negative); Urine Protein Negative (Neg-Trace)
[2023-10-19 11:34] LABS: Bacteria Urine None Seen (None Seen); RBC Urine 0-2 /HPF (0-2); UACC Culture Trigger YES
[2023-10-19 11:41] LABS: Basophils Percent Auto 0.5 % (0-2); Eosinophils Absolute Auto 0.2 X10*3/uL (0.0-0.4); Eosinophils Percent Auto 2.3 % (0-4); Hemoglobin 11.9 g/dl (12.0-16.0); Imm Gran Abs Auto 0.01 X10*3/uL (0.00-0.03); Imm Gran Pct Auto 0.1 % (0.0-0.4); Lymphocytes Absolute Auto 0.9 X10*3/uL (1.2-4.9); Lymphocytes Percent Auto 11.8 % (20-40); Mean Corpuscular HGB Conc 31.3 g/dl (31.0-35.0); Mean Corpuscular Hemoglobin 27.5 pg (27.0-33.0); Mean Corpuscular Volume 87.8 fL (80.0-98.0); Mean Platelet Volume 8.8 fL (9.4-12.3); Monocytes Absolute Auto 0.7 X10*3/uL (0.1-1.2); Monocytes Percent Auto 9.8 % (2-11); Neutrophils Absolute Auto 5.6 x10*3/uL (2.0-8.3); Neutrophils Percent Auto 75.5 % (45-73); Platelet Count 300 X10*3/uL (160-400); Red Blood Count 4.33 X10*6/uL (4.20-5.50); Red Cell Distribution Width 12.9 % (11.0-16.0); White Blood Count 7.4 X10*3/uL (4.8-10.8)
[2023-10-19 11:44] LABS: Estimated Average Glucose 183 mg/dL
[2023-10-19 12:06] LABS: Alanine Aminotransferase 8 U/L (0-31); Albumin Level 3.7 g/dL (3.5-5.0); Alkaline Phosphatase 88 U/L (39-117); Anion Gap 13 (12-20); Aspartate Amino Transferase 14 U/L (5-31); Bilirubin Total 0.5 mg/dL (0.0-1.0); Blood Urea Nitrogen 38 mg/dL (9-16); Calcium 9.3 mg/dL (8.4-10.2); Carbon Dioxide 26 mmol/L (22-29); Chloride 108 mmol/L (96-108); Cholesterol 177 mg/dL (<200); Creatinine Urine 112.51 mg/dL; Estimated Glomerular Filt Rate 31; Glucose Fasting 218 mg/dL (60-99); HDL Cholesterol 43 mg/dL (>40); LDL Cholesterol Calculated 109 mg/dL (<100); Microalbum/Creatinine Ratio Ur 7.9 ug/mg cr (<30); Potassium 4.8 mmol/L (3.3-5.1); Sodium 142 mmol/L (135-145); Total Protein 6.5 g/dL (6.5-8.0); Triglycerides 128 mg/dL (<150)
[2023-10-19 12:24] LABS: TSH reflex Free T4 2.13 uIU/mL (0.32-4.0); Vitamin D 25-OH Total 51.5 ng/mL (>30)
== END 2023-10-19 09:05 | disposition home or self-care (01) ==
LOC: HO.10HDL 09:04
PROVIDERS: Visit Provider Internal Medicine
DX: I10 Essential (primary) hypertension (principal); E78.00 Pure hypercholesterolemia, unspecified; E11.9 Type 2 diabetes mellitus without complications; E55.9 Vitamin D deficiency, unspecified; R30.0 Dysuria
CPT/HCPCS: 36415; 80053; 80061; 81001; 82043; 82306; 82570; 83036; 84443; 85025; 87086

== ENCOUNTER 2023-10-24 09:45 | Outpatient (AMB) | payer MEDICARE, OTHER, SELFPAY ==
[2023-10-24 09:46] VITALS: BP 122/78; PULSE 61; O2SAT 97; BMI 29.3
--- NOTE | 2023-10-24 09:46 | A.OFFPC_ITS ---
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 Accompanied by: Self / Same As Patient Allergies doxycycline Allergy (Mild, Verified 10/24/23 10:18) Vomiting levetiracetam [From Keppra] Allergy (Mild, Verified 10/24/23 10:18) Vomiting amoxicillin Allergy (Unknown, Verified 10/24/23 10:18) rash Penicillins Allergy (Unknown, Verified 10/24/23 10:18) rash prednisone Allergy (Unknown, Verified 10/24/23 10:18) rash ceftriaxone [From Rocephin] Allergy (Verified 10/24/23 10:18) Rash milk Allergy (Verified 10/24/23 10:18) Unknown omeprazole Adverse Reaction (Unknown, Verified 10/24/23 10:18) worsening heartburn ranitidine Adverse Reaction (Unknown, Verified 10/24/23 10:18) worsening heartburn, abdominal pain (ONLY to generic) Medication List - Last Reconciled 10/24/23 by Jimmy Awan MD albuterol sulfate 2.5 mg (3 mL) inhalation QID PRN albuterol sulfate 90 mcg/actuation 2 puffs inhalation Q6H PRN 30 days atorvastatin 80 mg PO BEDTIME 90 days blood sugar diagnostic (FreeStyle Lite Strips) As directed- to test blood sugar TID cholecalciferol (vitamin D3) 50 mcg PO DAILY 90 days clopidogrel 75 mg PO DAILY 90 days Farxiga (dapagliflozin propanediol) 10 mg PO QAM 90 days NS glyburide 2.5 mg PO DAILY 90 days latanoprost 0.005% 1 drp ophthalmic (eye) BEDTIME loratadine 10 mg PO DAILY PRN 90 days NS methylcellulose (laxative) (Citrucel) 500 mg PO DAILY metoprolol succinate ER 50 mg PO DAILY nitroglycerin 0.3 mg sublingual DAILY PRN ondansetron 4 mg PO Q8H PRN 15 days pantoprazole 40 mg PO DAILY sucralfate 1 g PO BEDTIME 30 days triamcinolone acetonide 0.1% 1 appl topical BID Tobacco use date assessed: 10/24/23 Fall risk assessment: 1 Fall in past year Last assessed Fall Risk: 10/24/23 Dental Screening Dental Screen Date: 10/24/23 Did you have a dental visit in the last 12 months?: Yes Did you have a dental problem in the last 6 months where you did not have access to dental care?: No Was dental information given to patient?: Patient has dentist HPI DM, CKD stage 4, PAD, hyperlipidemia, HTN HPI Details Patient comes in today for her follow up visit States that she feels okay She denies any headaches or dizziness Denies any chest pains, no SOB No nausea/vomiting, no abdominal pain No change in bowel habits noted Needs her glucometer lancets Rx refilled as her old one broke about a month ago and she has not been able to check her blood sugars lately Had her follow up labs done a few days ago - to discuss her results She is also requesting for a speech and hearing to get her hearing rechecked and help her get a new hearing aid [facility] Medical History Chronic kidney disease, stage 4 (severe) Chronic kidney disease, stage III (moderate) Atrophic vaginitis Orbital fracture Upper GI bleeding Hearing impairment Seizure Recurrent urinary tract infection Overweight (BMI 25.0-29.9) Vitamin D deficiency Allergic rhinitis Meralgia paresthetica of right side Anemia GERD without esophagitis Asthma Hyperkalemia Diabetic polyneuropathy associated with type 2 diabetes mellitus Peripheral vascular disease Pure hypercholesterolemia Benign essential hypertension Carotid atherosclerosis Coronary artery disease (~06/09/21) Type 2 diabetes mellitus with diabetic polyneuropathy Surgical History Hx of colonoscopy History of endoscopy S/P CABG x 4 (~06/09/21) History of cardiac catheterization History of left-sided carotid endarterectomy S/P LASIK surgery History of right-sided carotid endarterectomy History of laparoscopic cholecystectomy Family History Father CVD (cardiovascular disease) Mother Stroke Brother CVD (cardiovascular disease) Esophageal cancer Social History Household Members: Children Housing: House Are you a primary vision care associate to a significant other at home: No Do you presently have visiting nurse or other home services: No Alcohol intake: never Comment: cardiac Patient Tobacco Use Status: Former Tobacco user Quit Date: 34 years ago Tobacco use type: Cigarette e-Cigarette/Vaping Use: Never Used Second Hand Smoke Exposure: No Advance Directives Date on File: 01/11/22 service: No Current occupational status: retired 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 1. Little interest or pleasure in doing things: not at all 2. Feeling down, depressed, or hopeless: not at all 3. Trouble falling or staying asleep, or sleeping too much: not at all 4. Feeling tired or having little energy: not at all 5. Poor appetite or overeating: not at all 6. Feeling bad about yourself - or that you are a failure or have let yourself or your family down: not at all 7. Trouble concentrating on things, such as reading the newspaper or watching television: not at all 8. Moving or speaking so slowly that other people could have noticed. Or the opposite - being so fidgety or restless that you have been moving around a lot more than usual: not at all 9. Thoughts that you would be better off or of hurting yourself in some way: not at all Total score: 0 Depression Screening Interpretation: Negative Depression Screening Done: Yes 21505 - PHQ-9 Billing: Yes Source: Developed by Drs. Aquiles Alford, Yohana Coto, Jay Jay Metz and colleagues, with an educational yessi from [employer]. Thrive Questionnaire Date Thrive assessed: 10/24/23 I am a: Patient What is your living situation today?: I have a steady place to live Within the past 12 months, did the food you bought not last and you didn't have the money to get more?: Never true Within the past 12 months, did you worry whether your food would run out before you got money to buy more?: Never true Do you have trouble paying for medicines?: No Do you have trouble getting transportation to medical appointments?: No Do you have trouble paying your heating and electricity bill?: No Do you have trouble taking care of your child, family member or friend?: No Do you have trouble with day-to-day activities such as bathing, preparing meals, shopping, managing finances, etc.?: No Are you currently unemployed and looking for a job?: No Are you interested in more education?: No Please select the resources that you would like help with: None Currently or been in a relationship where the following occur: no concerns reported THRIVE Score: 0 AUDIT C Alcohol Use Questionnaire (AUDIT-C) 1. How often do you have a drink containing alcohol?: Never 3. How often do you have six or more drinks on one occasion?: Never Total Score: 0 Score Reviewed/Action Taken: Yes GALILEA-7 AMB Questionnaire GALILEA-7 Date GALILEA - 7 assessed: 10/24/23 Source: Developed by Drs. Aquiles Alford, Yohana Coto, Jay Jay Mezt and colleagues, with an educational yessi from [employer]. Review of Systems Const Denies chills, Denies fatigue, Denies fever(s) and Denies headache(s) ENT Denies dysphagia, Denies dizziness, Denies otalgia, Denies headache(s), Reports hearing loss, Denies neck pain, Denies odynophagia and Denies sore throat Card Denies chest pain, Denies palpitations and Reports dyspnea on exertion (mild) Resp Denies cough, Reports dyspnea on exertion (mild) and Denies wheezing GI Denies abdominal pain, Denies constipation, Denies dysphagia, Denies heartburn, Denies diarrhea, Denies nausea, Denies odynophagia and Denies vomiting Denies difficulty voiding, Denies nocturia, Denies dysuria (but reports (+) mild burning sensation) and Reports urinary urgency Musc Denies neck pain Skin/Breast Denies rash Neuro Denies dizziness and Denies headache(s) Endo Denies fatigue and Denies palpitations Aller/Immun Denies wheezing Physical exam (Primary Care) Vital Signs: Last Vital Signs Pulse 61 10/24/23 09:46 BP 122/78 10/24/23 09:46 Pulse Ox 97 10/24/23 09:46 Oxygen Delivery Method Room Air 10/24/23 09:46 BMI result Body Mass Index 29.3 Tobacco/Smoking Status: Tobacco use Status Tobacco use date assessed 10/24/23 10/24/23 09:48 Patient Tobacco Use Status Former Tobacco user 10/24/23 09:48 Tobacco use type Cigarette 10/24/23 09:48 e-Cigarette/Vaping Use Never Used 10/24/23 09:48 PHQ-9: PHQ-9 Score PHQ-9: Total score 0 10/24/23 09:54 Depression Screening Interpretation: Negative Thrive Assessment: Date of Thrive Assessment Date Thrive assessed 10/24/23 10/24/23 09:48 Currently or been in a relationship where the following occur: no concerns reported Const Other: appears pale General: no acute distress and alert HENMT Ears: TM's normal bilaterally and EAC's normal Throat: Yes posterior oropharynx normal and Yes tonsils normal (no TP congestion noted) Neck Neck: Yes no lymphadenopathy and Yes supple Thyroid: Thyroid normal Resp Auscultation: clear to auscultation bilaterally, no rales and no wheezes Cardio Rate: regular rate Rhythm: regular rhythm Heart sounds: no murmurs GI Palpation (GI): Soft to palpation and nontender Auscultation: normal bowel sounds General: Yes no CVA tenderness Back/Spine/Pelvis Back: no CVA tenderness Skin Rashes: no rashes Extrem General: Yes no clubbing, cyanosis or edema Results Reviewed Results Reviewed: Laboratory Tests 10/19/23 09:09 WBC 7.4 Hgb 11.9 L Hct 38.0 Plt Count 300 Sodium 142 Potassium 4.8 Creatinine 1.59 H Estimated GFR 31 Fasting Glucose 218 H Hemoglobin A1c % 8.0 H Calcium 9.3 AST 14 ALT 8 Triglycerides 128 Cholesterol 177 LDL Cholesterol, Calc 109 H HDL Cholesterol 43 25-OH Vitamin D Total 51.5 TSH 2.13 Ur Specific Eckert 1.025 Urine Protein Negative Urine Glucose (UA) >=1000 H Urine Blood Negative Urine Nitrite Negative Ur Leukocyte Esterase Trace H Microalb/Creat Ratio 7.9 Assessment and Plan Assessment & Plan (1) Coronary artery disease: Onset Date: ~06/09/21 Comment: S/P stenting of ostial LAD; S/P CABG x 4 (RODRIGUEZ-mid LAD, SVG-PLV, left radial artery-OM, SVG-diag) on 06/09/21 Code(s): I25.10 - Atherosclerotic heart disease of [place] coronary artery without angina pectoris Qualifiers: Coronary Disease-Associated Artery/Lesion type: [place] artery [place] vs. transplanted heart: [place] heart Associated angina: without angina Qualified Code(s): I25.10 - Atherosclerotic heart disease of [place] coronary artery without angina pectoris Plan: S/P CABG x 4 in May 2021 Patient currently remains asymptomatic from a cardiac standpoint Continue Metoprolol ER 50 mg QD and Clopidogrel 75 mg QD; Aspirin 81 mg QD was previously discontinued due to her upper GI bleeding Patient also has NTG 0.4 mg tablets to take SL PRN for chest pains Follow up with cardiology (Dr. Alba) as scheduled (2) Carotid atherosclerosis: Comment: S/P left carotid revascularization and endarterectomy in 2019 Code(s): I65.29 - Occlusion and stenosis of unspecified carotid artery Qualifiers: Laterality: left Qualified Code(s): I65.22 - Occlusion and stenosis of left carotid artery Plan: Continue Clopidogrel 75 mg QD Follow up with vascular surgery (Dr. Jesus) as scheduled (3) Peripheral vascular disease: Code(s): I73.9 - Peripheral vascular disease, unspecified Plan: Follow up with vascular surgery as scheduled (4) Pure hypercholesterolemia: Code(s): E78.00 - Pure hypercholesterolemia, unspecified Plan: Results of her labs done a few days ago reviewed and discussed with patient - she is cautioned that her cholesterol levels, especially her total and LDL cholesterol, have gone up significantly from previous Reinforced low cholesterol diet Continue Atorvastatin 80 mg QD; Ezetimibe 10 mg QD was discontinued a few months ago but if her numbers do not improve by her next visit, may need to start her back on this Will recheck her labs and fasting lipids in 3 months for follow up (5) Benign essential hypertension: Code(s): I10 - Essential (primary) hypertension Plan: Reinforced low-sodium diet - goal is systolic BP of at least 120 to 130 mm or less due to her comorbidities Continue Amlodipine 5 mg QD and Metoprolol ER 50 mg QD; Losartan was previously discontinued due to hyperkalemia (6) Type 2 diabetes mellitus with diabetic polyneuropathy: Code(s): E11.42 - Type 2 diabetes mellitus with diabetic polyneuropathy Qualifiers: 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: without 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 Qualified Code(s): E11.42 - Type 2 diabetes mellitus with diabetic polyneuropathy Plan: Patient is cautioned that her HgbA1c has increased significantly from 5.9% previously to 8.0% on her labs done a few days ago - goal is < 7.0% She admits that since she was advised by nephrology a few months ago that she cannot eat a lot of potatoes, she has switched over to rice as a main ingredient in her diet and meals over the past few months Is advised that rice, bread and pasta are all carbs and she cannot have too much of any of these as she is a diabetic and this is likely the main reason for the significant rise in her HgbA1c lately Reinforced diabetic diet She was taken OFF Metformin a few months ago due to her declining renal function and is currently on Farxiga 10 mg QD and Glyburide 2.5 mg QD Will now INCREASE her Glyburide to 5 mg QD - patient is reminded to call [facility] if her blood sugar readings start dropping too low (<60 mg/dl) or if she starts experiencing symptoms of hypoglycemia Will also refer her to team assistant to help advise her on how to navigate her diet with all of the restrictions she has to incorporate given her multiple medical issues (7) Diabetic polyneuropathy associated with type 2 diabetes mellitus: Code(s): E11.42 - Type 2 diabetes mellitus with diabetic polyneuropathy Plan: Continue Oxycodone-Acetaminophen 5-325 mg 2 to 3 times a day ONLY NEEDED for severe pain Will consider starting on Gabapentin if symptoms progress or worsen (8) Chronic kidney disease, stage 4 (severe): Code(s): N18.4 - Chronic kidney disease, stage 4 (severe) Plan: Her serum creatinine and GFR appears to have improved slightly on her recent labs and she is now back in CKD stage 3, probably due to her being taken off Metformin and also due to the effects/benefits of Farxiga Follow up with nephrology as scheduled Will continue to monitor GFR and renal function regularly (9) Anemia: Code(s): D64.9 - Anemia, unspecified Qualifiers: Anemia type: unspecified type Qualified Code(s): D64.9 - Anemia, unspecified Plan: Improving - was most likely multifactorial, including due to upper GI bleeding last year that required Hemospray and 2 units of PRBC Will continue to monitor her CBC regularly Follow up with hematology (Dr. Vazquez) as scheduled (10) Asthma: Code(s): J45.909 - Unspecified asthma, uncomplicated Qualifiers: Asthma severity: moderate Asthma persistence: persistent Asthma complication type: uncomplicated Qualified Code(s): J45.40 - Moderate persistent asthma, uncomplicated Plan: Stable Continue Albuterol HFA 2 puffs 4 times a day as needed Patient also has a nebulizer that she uses (with Albuterol solution 0.083%) up to 4 times a day when needed (11) Allergic rhinitis: Code(s): J30.9 - Allergic rhinitis, unspecified Qualifiers: Allergic rhinitis trigger: unspecified Allergic rhinitis seasonality: unspecified Qualified Code(s): J30.9 - Allergic rhinitis, unspecified Plan: Continue Loratadine 10 mg QD PRN (12) Vitamin D deficiency: Code(s): E55.9 - Vitamin D deficiency, unspecified Plan: Continue Vitamin D3 1000 units QD (13) Seizure: Code(s): R56.9 - Unspecified convulsions Plan: Most likely due to (adverse reaction from) Doxycycline; has had no recurrence of seizures since her discharge from [facility] several months ago CTA of the head/neck and MRI of the brain done last year came out negative EEG done showed mild to moderate background slowing with occasional triphasic wa ves but no epileptiform activity was noted Neurology (Dr. Hernandez) thinks that patient actually had a TIA instead of a seizure Follow up with neurology as scheduled (14) Hearing impairment: Code(s): H91.90 - Unspecified hearing loss, unspecified ear Qualifiers: Hearing loss type: unspecified Laterality: unspecified laterality Qualified Code(s): H91.90 - Unspecified hearing loss, unspecified ear Plan: Per request, will refer her to Speech and Hearing for further evaluation and management (15) Overweight (BMI 25.0-29.9): Code(s): E66.3 - Overweight Plan: Reinforced diet/weight loss; exercise is unrealistic given patient's multiple comorbidities Plan Follow up in 3 months Orders: Orders Hemoglobin A1c 3 Months E11.9 - Type 2 diabetes mellitus without complications Complete Blood Count Auto Diff 3 Months D64.9 - Anemia, unspecified Lipid Panel 3 Months E78.00 - Pure hypercholesterolemia, unspecified Microalbumin, Random (w Creat) 3 Months E11.9 - Type 2 diabetes mellitus without complications Vitamin D 25-OH Total 3 Months E55.9 - Vitamin D deficiency, unspecified Vitamin B12 and Folate 3 Months E53.8 - Deficiency of other specified B group vitamins UA CC w/rflx Micro + Cult 3 Months R30.0 - Dysuria TSH reflex Free T4 3 Months E78.00 - Pure hypercholesterolemia, unspecified Comprehensive [place]. Panel Fast 3 Months E78.00 - Pure hypercholesterolemia, unspecified Referrals Speech and Hearing Referral H91.90 - Unspecified hearing loss, unspecified ear Nutrition/Dietitian Referral E11.42 - Type 2 diabetes mellitus with diabetic polyneuropathy, E78.00 - Pure hypercholesterolemia, unspecified, I10 - Essential (primary) hypertension, I25.10 - Atherosclerotic heart disease of [place] coronary artery without angina pectoris, N18.4 - Chronic kidney disease, stage 4 (severe) Medications: New lancets (FreeStyle Lancets) As directed once a day 100 ea 12RF E11.9 - Type 2 di abetes mellitus without complications nitrofurantoin monohyd/m-cryst 100 mg (Macrobid) must administer with a meal/food 100 mg PO Q12H 3 days 6 caps 0RF Changed From glyburide 2.5 mg PO DAILY 90 days 90 tabs 1RF To glyburide 5 mg PO DAILY 90 days 90 tabs 1RF Coding Level of Care Code Est Pt Level 4 (72999) Diagnoses Coronary artery disease involving [place] coronary artery of [place] heart without angina pectoris I25.10 Coronary Disease-Associated Artery/Lesion type: [place] artery [place] vs. 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 Diabetic polyneuropathy associated with type 2 diabetes mellitus E11.42 Chronic kidney disease, stage 4 (severe) N18.4 Anemia, unspecified type D64.9 Anemia type: unspecified type Moderate persistent asthma without complication J45.40 Asthma severity: moderate Asthma persistence: persistent Asthma complication type: uncomplicated Allergic rhinitis, unspecified seasonality, unspecified trigger J30.9 Allergic rhinitis trigger: unspecified Allergic rhinitis seasonality: unspecified Vitamin D deficiency E55.9 Seizure R56.9 Hearing loss, unspecified hearing loss type, unspecified laterality H91.90 Hearing loss type: unspecified Laterality: unspecified laterality Overweight (BMI 25.0-29.9) E66.3
== END 2023-10-24 10:40 | disposition home or self-care (01) ==
PROVIDERS: PCP Internal Medicine; Visit Provider Internal Medicine
DX: I73.9 Peripheral vascular disease, unspecified (principal); E11.42 Type 2 diabetes mellitus with diabetic polyneuropathy; N18.4 Chronic kidney disease, stage 4 (severe); R56.9 Unspecified convulsions; I25.10 Atherosclerotic heart disease of native coronary artery without angina pectoris; I65.22 Occlusion and stenosis of left carotid artery; E78.00 Pure hypercholesterolemia, unspecified; I12.9 Hypertensive chronic kidney disease with stage 1 through stage 4 chronic kidney disease, or unspecified chronic kidney disease; D64.9 Anemia, unspecified; J45.40 Moderate persistent asthma, uncomplicated; J30.9 Allergic rhinitis, unspecified; E55.9 Vitamin D deficiency, unspecified
CPT/HCPCS: 99214

== ENCOUNTER 2023-11-05 08:34 | Outpatient (AMB) | payer MEDICARE, OTHER, SELFPAY ==
[2023-11-05 08:46] VITALS: BP 137/65; PULSE 63; BMI 29.0
--- NOTE | 2023-11-05 08:46 | MHC.OFFVIS ---
Intake Vital Signs 11/05/23 08:46 Height 5 ft 2 in Weight 158 lb 11.725 oz BMI 29.0 BP 137/65 Blood Pressure Location Rt brachial Position Sitting Pulse 63 Intake Visit Reasons: 6 month follow up Intake Note: Jermain presents in office today in 6 months follow up of anemia & GERD CC: Patient reports doing well and denies any new GI symptoms today. 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 Accompanied by: Daughter Allergies doxycycline Allergy (Mild, Verified 11/05/23 08:54) Vomiting levetiracetam [From Keppra] Allergy (Mild, Verified 11/05/23 08:54) Vomiting amoxicillin Allergy (Unknown, Verified 11/05/23 08:54) rash Penicillins Allergy (Unknown, Verified 11/05/23 08:54) rash prednisone Allergy (Unknown, Verified 11/05/23 08:54) rash ceftriaxone [From Rocephin] Allergy (Verified 11/05/23 08:54) Rash milk Allergy (Verified 11/05/23 08:54) Unknown omeprazole Adverse Reaction (Unknown, Verified 11/05/23 08:54) worsening heartburn ranitidine Adverse Reaction (Unknown, Verified 11/05/23 08:54) worsening heartburn, abdominal pain (ONLY to generic) HPI 6 month follow up HPI Details LAST VISIT Anemia Patient unable to take iron. She tried multiple different brands and she reports to have epigastric discomfort when taking it. Patient is eating high iron food GERD (gastroesophageal reflux disease) Continue pantoprazole in the morning and sucralfate at bedtime. Patient was encouraged to avoid dietary triggers. Avoid anything with with tomato sauce, fried onions. Avoid late night snacking. Staying upright for minimum 3 hours after meals discussed with patient. Postprandial diarrhea Postprandial loose stools. Patient was encouraged to stay away from food that is high in fat. Patient will take Citrucel every morning with full glass of water to help her bulk her stools. I will see her in 6 months, sooner on as needed basis. Patient is agreeable to this plan and verbalizes understanding of instructions. She was given the opportunity to ask questions and all questions answered the Plan Orders Orders Vitamin B12 and Folate Today R19.7 - Diarrhea, unspecified Ferritin Today R74.8 - Abnormal levels of other serum enzymes IRON PROFILE Today D64.9 - Anemia, unspecified Medications New methylcellulose (laxative) (Citrucel) take it with full glass of water 500 mg PO DAILY 90 tabs 2RF K59.00 - Constipation, unspecified Refilled pantoprazole 40 mg PO DAILY 90 tabs 3RF K21.9 - Gastro-esophageal reflux disease without esophagitis sucralfate 1 g PO BEDTIME 30 days 90 tabs 3RF TODAY'S VISIT Laboratory Tests 10/19/23 09:09 RBC 4.33 Hgb 11.9 L Hct 38.0 MCV 87.8 Hemoglobin A1c % 8.0 H AST 14 ALT 8 Alkaline Phosphata se 88 Patient is here today for follow-up. Patient is accompanied by her daughter. Patient reports that she has been feeling well. Denies any abdominal pain or discomfort. Patient reports that she is moving her bowels without any issues. Her symptoms of acid reflux are suppressed. Patient is also trying to avoid dietary triggers. Certain things like spicy food or tomato sauce might bother her, however patient is trying to avoid it. She is taking pantoprazole in the morning with good effect as well as sucralfate at bedtime. Patient no longer has postprandial loose stools. Patient denies melena, hematochezia, unintentional weight loss or ribbon like stools. Patient has H&H improved. Patient is not taking any iron supplements, however patient is trying to eat food that is high in iron. [facility] Medical History Chronic kidney disease, stage 4 (severe) Chronic kidney disease, stage III (moderate) Atrophic vaginitis Orbital fracture Upper GI bleeding Hearing impairment Seizure Recurrent urinary tract infection Overweight (BMI 25.0-29.9) Vitamin D deficiency Allergic rhinitis Meralgia paresthetica of right side Anemia GERD without esophagitis Asthma Hyperkalemia Diabetic polyneuropathy associated with type 2 diabetes mellitus Peripheral vascular disease Pure hypercholesterolemia Benign essential hypertension Carotid atherosclerosis Coronary artery disease (~06/09/21) Type 2 diabetes mellitus with diabetic polyneuropathy Surgical History Hx of colonoscopy History of endoscopy S/P CABG x 4 (~06/09/21) History of cardiac catheterization History of left-sided carotid endarterectomy S/P LASIK surgery History of right-sided carotid endarterectomy History of laparoscopic cholecystectomy Family History Father CVD (cardiovascular disease) Mother Stroke Brother CVD (cardiovascular disease) Esophageal cancer Social History Household Members: Children Housing: House Are you a primary health care social worker to a significant other at home: No Do you presently have visiting nurse or other home services: No Alcohol intake: never Comment: cardiac Patient Tobacco Use Status: Former Tobacco user Quit Date: 34 years ago Tobacco use type: Cigarette e-Cigarette/Vaping Use: Never Used Second Hand Smoke Exposure: No Advance Directives Date on File: 01/11/22 service: No Current occupational status: retired 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 Cognitive needs: No Hearing needs: No Vision needs: No Review of Systems Const Denies weight gain and Denies weight loss ENT Reports no additional complaints, Denies dysphagia and Denies odynophagia Card Reports no additional complaints Resp Reports no additional complaints GI Denies abdominal pain, Denies belching, Denies melena, Denies bloating, Denies change in bowel habits, Denies dysphagia, Denies excessive flatus, Denies dyspepsia, Denies heartburn, Denies diarrhea, Denies loose stools, Denies nausea, Denies odynophagia and Denies vomiting Reports no additional complaints Musc Reports no additional complaints Neuro Reports no additional complaints Psych Reports no additional complaints Endo Reports no additional complaints Physical Exam Vital Signs: Last Vital Signs Pulse 63 11/05/23 08:46 BP 137/65 11/05/23 08:46 BMI result Body Mass Index 29.0 Const General: healthy appearing, no acute distress and well developed Nutritional Appearance: well nourished Orientation/consciousness: patient oriented x3 Resp Effort & Inspection: normal respiratory effort, able to speak in complete sentences, no tracheal deviation and symmetric chest movement Auscultation: clear to auscultation bilaterally Cardio Rate: regular rate GI Inspection: Yes normal to inspection and No distended Palpation (GI): Soft to palpation, not firm, nontender and No hepatosplenomegaly present Auscultation: normal bowel sounds General: Yes no CVA tenderness Back/Spine/Pelvis Back: no CVA tenderness Skin General skin exam: elasticity normal, turgor normal and dry skin Neuro General: patient oriented x3 Psych Appearance: grossly normal Mental Status: mental status grossly normal Assessment & Plan Assessment & Plan (1) Anemia: Code(s): D64.9 - Anemia, unspecified Qualifiers: Anemia type: unspecified type Qualified Code(s): D64.9 - Anemia, unspecified (2) GERD (gastroesophageal reflux disease): Code(s): K21.9 - Gastro-esophageal reflux disease without esophagitis Qualifiers: Esophagitis presence: esophagitis presence not specified Qualified Code(s): K21.9 - Gastro-esophageal reflux disease without esophagitis (3) Postprandial diarrhea: Code(s): K52.9 - Noninfective gastroenteritis and colitis, unspecified Plan Continue pantoprazole and sucralfate. Patient is encouraged to avoid dietary triggers and late night snacking. Staying upright for minimum 3 hours after meals discussed with patient. Currently patient is moving her bowels without any issues. Encouraged to take stool softeners or MiraLax if needed. Patient was encouraged to avoid carbs as her A1c increased quite a bit. Patient's PCP will be rechecking A1c in few months. Both patient and her daughter are agreeable to plan of care and verbalizes understanding of instructions. They were given the opportunity to ask questions and all questions answered Thank you for allowing me to participate in her care Medications: Refilled pantoprazole 40 mg PO DAILY 90 tabs 3RF K21.9 - Gastro-esophageal reflux disease without esophagitis sucralfate 1 g PO BEDTIME 30 days 90 tabs 3RF Coding Level of Care Code Est Pt Level 3 (28208) Diagnoses Anemia, unspecified type D64.9 Anemia type: unspecified type Gastroesophageal reflux disease, unspecified whether esophagitis present K21.9 Esophagitis presence: esophagitis presence not specified Postprandial diarrhea K52.9 Time Spent (min) 30 Comment 20 minutes spent with patient and additional 10 minutes spent reviewing her records
== END 2023-11-05 09:46 | disposition home or self-care (01) ==
PROVIDERS: PCP Internal Medicine; Visit Provider Nurse Practitioner Family
DX: D64.9 Anemia, unspecified (principal); K21.9 Gastro-esophageal reflux disease without esophagitis; K52.9 Noninfective gastroenteritis and colitis, unspecified
CPT/HCPCS: 99213

== ENCOUNTER → 2023-11-05 08:34 | Outpatient (BNVA) | payer MEDICARE, OTHER, SELFPAY | PROVIDERS: PCP Internal Medicine; Visit Provider Nurse Practitioner Family | DX: D64.9 Anemia, unspecified (principal); K21.9 Gastro-esophageal reflux disease without esophagitis; K52.9 Noninfective gastroenteritis and colitis, unspecified | CPT/HCPCS: 99212 ==

== ENCOUNTER 2023-11-26 08:04 | Outpatient (REF) | payer MEDICARE, OTHER, SELFPAY ==
[2023-11-26 11:37] LABS: Cholesterol 133 mg/dL (<200); HDL Cholesterol 37 mg/dL (>40); LDL Cholesterol Calculated 74 mg/dL (<100); Triglycerides 112 mg/dL (<150)
== END 2023-11-26 08:05 | disposition home or self-care (01) ==
LOC: HO.10HDL 08:04
PROVIDERS: Visit Provider Nurse Practitioner Family
DX: I25.118 Atherosclerotic heart disease of native coronary artery with other forms of angina pectoris (principal); E78.5 Hyperlipidemia, unspecified
CPT/HCPCS: 36415; 80061

== ENCOUNTER 2023-11-28 13:46 | Outpatient (AMB) | payer MEDICARE, OTHER, SELFPAY ==
[2023-11-28 13:49] VITALS: BMI 29.6
--- NOTE | 2023-11-28 13:49 | MHC.AMNUTRGE ---
Intake VS Expanded 11/28/23 13:49 11/30/23 21:55 Height 5 ft 2 in 5 ft 2 in Weight 161 lb 9.581 oz 162 lb BMI 29.6 29.6 Intake Visit Reasons: DM2,CKD,Pure hypercholesterolemia/CONFIRMED Allergies doxycycline Allergy (Mild, Verified 11/05/23 08:54) Vomiting levetiracetam [From Keppra] Allergy (Mild, Verified 11/05/23 08:54) Vomiting amoxicillin Allergy (Unknown, Verified 11/05/23 08:54) rash Penicillins Allergy (Unknown, Verified 11/05/23 08:54) rash prednisone Allergy (Unknown, Verified 11/05/23 08:54) rash ceftriaxone [From Rocephin] Allergy (Verified 11/05/23 08:54) Rash milk Allergy (Verified 11/05/23 08:54) Unknown omeprazole Adverse Reaction (Unknown, Verified 11/05/23 08:54) worsening heartburn ranitidine Adverse Reaction (Unknown, Verified 11/05/23 08:54) worsening heartburn, abdominal pain (ONLY to generic) HPI Nutrition Presentation Details Pt presents for MNT for T2DM Pt reports having good appetite, Has 3 meals per day and 1-2 snacks per day B: Citizen Of [place] muffin with p.b , cranberry light juice L: sandwich (varies ham/cheese, tuna, eggsalad) water or diluted juice d: shepherds pie, water or milk snack: p.b cracker or fruit or rice cereal with milk physical activity: daily life activities ETOH/SMokig: denies eating out : 0-2xm fried foods 0-1/m VCC-Wbdtryp-Ti.Jeor Equation Height 5 ft 2 in Weight 162 lb Resting Metabolic Rate 1163.73 Calculated Activity Level Mild Activity Calories Needed to Maintain Weight 1600.13 Diagnosis Nutrition problem #1 food nutri know defi As related to (etiology) #1 diagnosis As evidenced by (sign/symptom) #1 elevated HgbA1c Monitoring/Goals Nutrition problem monitoring level of knowledge/skill and total CHO intake Nutrition goal/outcome list 3 CHO foods Outcome progress verbalized understanding Learning/Education Readiness to learn excellent Stages of change action Educational materials provided Yes (1700 tavo meal , low sodium, consistent carb) Most Recent Diabetes Results: Microalb/Creat Ratio 7.9 ug/mg cr (<30) 10/19/23 Cholesterol 133 mg/dL (<200) 11/26/23 HDL Cholesterol 37 mg/dL (>40) L 11/26/23 Triglycerides 112 mg/dL (<150) 11/26/23 Creatinine 1.59 mg/dL (0.5-1.4) H 10/19/23 Blood Urea Nitrogen 38 mg/dL (9-16) H 10/19/23 Sodium 142 mmol/L (135-145) 10/19/23 Potassium 4.8 mmol/L (3.3-5.1) 10/19/23 Chloride 108 mmol/L (96-108) 10/19/23 Carbon Dioxide 26 mmol/L (22-29) 10/19/23 Calcium 9.3 mg/dL (8.4-10.2) 10/19/23 AST 14 U/L (5-31) 10/19/23 ALT 8 U/L (0-31) 10/19/23 Total Protein 6.5 g/dL (6.5-8.0) 10/19/23 Albumin 3.7 g/dL (3.5-5.0) 10/19/23 [facility] Medical History Chronic kidney disease, stage 4 (severe) Chronic kidney disease, stage III (moderate) Atrophic vaginitis Orbital fracture Upper GI bleeding Hearing impairment Seizure Recurrent urinary tract infection Overweight (BMI 25.0-29.9) Vitamin D deficiency Allergic rhinitis Meralgia paresthetica of right side Anemia GERD without esophagitis Asthma Hyperkalemia Diabetic polyneuropathy associated with type 2 diabetes mellitus Peripheral vascular disease Pure hypercholesterolemia Benign essential hypertension Carotid atherosclerosis Coronary artery disease (~06/09/21) Type 2 diabetes mellitus with diabetic polyneuropathy Surgical History Hx of colonoscopy History of endoscopy S/P CABG x 4 (~06/09/21) History of cardiac catheterization History of left-sided carotid endarterectomy S/P LASIK surgery History of right-sided carotid endarterectomy History of laparoscopic cholecystectomy Family History Father CVD (cardiovascular disease) Mother Stroke Brother CVD (cardiovascular disease) Esophageal cancer Social History Household Members: Children Housing: House Are you a primary medical care evaluation specialist to a significant other at home: No Do you presently have visiting nurse or other home services: No Alcohol intake: never Comment: cardiac Patient Tobacco Use Status: Former Tobacco user Quit Date: 34 years ago Tobacco use type: Cigarette e-Cigarette/Vaping Use: Never Used Second Hand Smoke Exposure: No Advance Directives Date on File: 01/11/22 service: No Current occupational status: retired 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 Cognitive needs: No Hearing needs: No Vision needs: No Assessment & Plan Assessment & Plan (1) Diabetic polyneuropathy associated with type 2 diabetes mellitus: Code(s): E11.42 - Type 2 diabetes mellitus with diabetic polyneuropathy Plan: Wt: 74 Kg ( 11/2023 ) Est kcal needs as per MSJ: 1778-6364 (40% carb, 30% protein/fat) Est fluid needs as per 30 ml/d: 2200 Est prot per day as per 1 g/kg bw: 74 Recommend fiber intake : 8-10 g per day and gradually increase to 25-28 g per day for women and 35-38 g for men or as tolerated Recommend sodium intake per day : less than 2000 mg Educated patient on: ( R = reviewed V = verbalizes understanding N/R = needs review N/A = not applicable Food sources of carbohydrate, adequate serving sizes and its role in various health conditions: V Differences between complex carbohydrates a simple carbohydrates, role of fiber in diet: V Lean protein sources of foods: R V Differences between types of fats and role in diet (mono on saturated fat fatty acids, saturated fatty acids, trans fats): R Food sources of sodium in salt and healthy modifications for heart health in kidney health: R V Healthy plate method concept: R V Physical activity: Benefits a precaution: R Hypoglycemia protocol (rule of 15): R V Dietary prevention of Hyperglycemia: R Patient Instructions: Follow healthy plate method Choose low sodium foods (chips, pretzels, crackers ) see meal plan ideas Coding Level of Care Code Nutr Indiv Intake (56892) Diagnoses Diabetic polyneuropathy associated with type 2 diabetes mellitus E11.42 Time Spent (min) 30
[2023-11-30 21:55] VITALS: BMI 29.6
== END 2023-11-28 15:21 | disposition home or self-care (01) ==
PROVIDERS: PCP Internal Medicine; Visit Provider Dietitian, Registered
DX: E11.42 Type 2 diabetes mellitus with diabetic polyneuropathy (principal)

== ENCOUNTER → 2023-11-28 13:46 | Outpatient (BNVA) | payer MEDICARE, OTHER, SELFPAY | PROVIDERS: PCP Internal Medicine; Visit Provider Dietitian, Registered | DX: E11.42 Type 2 diabetes mellitus with diabetic polyneuropathy (principal) | CPT/HCPCS: 97802 ==

== ENCOUNTER 2024-01-04 09:10 | Outpatient (REF) | payer MEDICARE, OTHER, SELFPAY ==
[2024-01-04 09:29] LABS: MANUAL DIFF FLAG NO
[2024-01-04 09:46] LABS: Basophils Percent Auto 0.5 % (0-2); Eosinophils Absolute Auto 0.2 X10*3/uL (0.0-0.4); Eosinophils Percent Auto 3.3 % (0-4); Hematocrit 38.1 % (37.0-47.0); Hemoglobin 11.9 g/dl (12.0-16.0); Imm Gran Abs Auto 0.01 X10*3/uL (0.00-0.03); Imm Gran Pct Auto 0.2 % (0.0-0.4); Lymphocytes Absolute Auto 0.9 X10*3/uL (1.2-4.9); Lymphocytes Percent Auto 13.2 % (20-40); Mean Corpuscular HGB Conc 31.2 g/dl (31.0-35.0); Mean Corpuscular Hemoglobin 27.2 pg (27.0-33.0); Mean Platelet Volume 8.5 fL (9.4-12.3); Monocytes Absolute Auto 0.5 X10*3/uL (0.1-1.2); Monocytes Percent Auto 7.3 % (2-11); Neutrophils Absolute Auto 4.9 x10*3/uL (2.0-8.3); Neutrophils Percent Auto 75.5 % (45-73); Platelet Count 271 X10*3/uL (160-400); Red Blood Count 4.38 X10*6/uL (4.20-5.50); Red Cell Distribution Width 14.6 % (11.0-16.0); White Blood Count 6.5 X10*3/uL (4.8-10.8)
[2024-01-04 09:59] LABS: INTERNATIONAL NORM RATIO 0.9 (0.9-1.1); Prothrombin Time 10.9 SEC (11.1-13.3)
[2024-01-04 10:27] LABS: Anion Gap 14 (12-20); Blood Urea Nitrogen 33 mg/dL (9-16); Calcium 9.3 mg/dL (8.4-10.2); Carbon Dioxide 25 mmol/L (22-29); Chloride 107 mmol/L (96-108); Estimated Glomerular Filt Rate 34; Glucose Random 206 mg/dL (60-115); Potassium 4.4 mmol/L (3.3-5.1); Sodium 142 mmol/L (135-145)
== END 2024-01-04 09:11 | disposition home or self-care (01) ==
LOC: HO.LAB 09:10
PROVIDERS: PCP Internal Medicine; Visit Provider Nurse Practitioner Family
DX: I25.118 Atherosclerotic heart disease of native coronary artery with other forms of angina pectoris (principal); Z95.1 Presence of aortocoronary bypass graft; I20.9 Angina pectoris, unspecified; R94.39 Abnormal result of other cardiovascular function study
CPT/HCPCS: 36415; 80048; 85025; 85610

== ENCOUNTER 2024-01-04 10:09 | Outpatient (REF) | payer MEDICARE, OTHER, SELFPAY | END 2024-01-04 10:10 | disposition home or self-care (01) | LOC: HO.SH 10:09 | PROVIDERS: Visit Provider Internal Medicine | DX: Z01.118 Encounter for examination of ears and hearing with other abnormal findings (principal); H90.3 Sensorineural hearing loss, bilateral | CPT/HCPCS: 92557 ==

== ENCOUNTER 2024-01-04 11:18 | Outpatient (REF) | payer SELFPAY ==
--- NOTE | 2024-01-04 14:03 | MHC.AU.HA3 ---
Hearing Instrument Follow-Up- Binaural Date of Visit: 01/04/24 Right Ear: Luis, Model, Color, Serial Number: Shayla Waterman [id number] SN: [id number] Color: Marisela Day Habilitation Supervisor Repair Warranty: 04/06/2023 Day Habilitation Supervisor Loss and Damage Warranty: 04/06/2023 Battery Size: Rechargeable Sales Development Executive/Slim Tube: 1P Earmold/Dome/CShell/SlimTip:Small power dome (no retention tail) Type of Wax Guard: CeruShield Dispensed By: [facility] Date of Fittin01/04/2024 (Originally purchased January 2020) Left Ear: Luis, Model, Color, Serial Number: Shayla Waterman [id number] SN: [id number] Color: Marisela Day Habilitation Supervisor Repair Warranty: 04/06/2023 Day Habilitation Supervisor Loss and Damage Warranty: 04/06/2023 Battery Size: Rechargeable Sales Development Executive/Slim Tube: 1P Earmold/Dome/CShell/SlimTip: Small power dome (no retention tail) Type of Wax Guard: CeruShield Dispensed By: [facility] Date of Fittin01/04/2024 (Originally purchased January 2020) Follow-Up Summary: Accompanied by daughter, Clemencia. Jermain returned for update hearing test. Hearing aids were previously recommended; however, Jermain could not afford them at that time. Clemencia has opted to donate her hearing aids to Jermain. Clemencia reportedly cannot wear the hearing aids as they exacerbate her tinnitus. Cleaned both hearing aids. Vacuumed microphones. Ran through dehumidifier. Replaced domes and wax guards. Ran feedback analyzer and real ear measures to reprogram hearing aids for Jermain. Good match to target; however, reportedly too loud. Decreased to 80% gain level for comfort. Discussed care and use including rechargeability, volume control use, and manually turning on/off. Practiced insertion and removal. Clemencia is familiar with general hearing aid maintenance and can help clean/change domes and wax guards, as needed. Jermain opted to schedule on additional follow up, which will be included in today's fee for reprogramming. Recommendations: An additional follow-up was scheduled to monitor progress. 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
== END 2024-01-04 11:19 | disposition home or self-care (01) ==
LOC: HO.HAP 11:18
PROVIDERS: Visit Provider Internal Medicine
DX: Z46.1 Encounter for fitting and adjustment of hearing aid (principal); H90.3 Sensorineural hearing loss, bilateral
CPT/HCPCS: V5020

== ENCOUNTER 2024-01-10 08:15 | Outpatient (REF) | payer MEDICARE, OTHER, SELFPAY ==
[2024-01-10 08:41] LABS: MANUAL DIFF FLAG NO
[2024-01-10 09:16] LABS: Appearance Urine Turbid; Color Urine Yellow; Glucose Urine UA >=1000 mg/dL (Negative); Leukocyte Esterase Urine Moderate (2+) (Negative); Nitrite Urine Positive (Negative); PH 5.5 (5.0-9.0); Specific Gravity - Urine 1.025 (1.005-1.025); UMIC TRIGGER UACC YES; Urine Blood Trace (Negative); Urine Ketones Negative (Negative); Urine Protein Trace mg/dL (Neg-Trace)
[2024-01-10 09:16] LABS: Basophils Percent Auto 0.6 % (0-2); Eosinophils Absolute Auto 0.2 X10*3/uL (0.0-0.4); Eosinophils Percent Auto 3.5 % (0-4); Hematocrit 36.9 % (37.0-47.0); Hemoglobin 11.5 g/dl (12.0-16.0); Imm Gran Abs Auto 0.02 X10*3/uL (0.00-0.03); Imm Gran Pct Auto 0.3 % (0.0-0.4); Lymphocytes Absolute Auto 0.8 X10*3/uL (1.2-4.9); Lymphocytes Percent Auto 12.8 % (20-40); Mean Corpuscular HGB Conc 31.2 g/dl (31.0-35.0); Mean Corpuscular Hemoglobin 27.3 pg (27.0-33.0); Mean Corpuscular Volume 87.4 fL (80.0-98.0); Mean Platelet Volume 8.7 fL (9.4-12.3); Monocytes Absolute Auto 0.5 X10*3/uL (0.1-1.2); Monocytes Percent Auto 8.5 % (2-11); Neutrophils Absolute Auto 4.7 x10*3/uL (2.0-8.3); Neutrophils Percent Auto 74.3 % (45-73); Platelet Count 278 X10*3/uL (160-400); Red Blood Count 4.22 X10*6/uL (4.20-5.50); Red Cell Distribution Width 14.6 % (11.0-16.0); White Blood Count 6.3 X10*3/uL (4.8-10.8)
[2024-01-10 09:22] LABS: Bacteria Urine 4+ (None Seen); RBC Urine 0-2 /HPF (0-2); UACC Culture Trigger YES; WBC Urine >50 /HPF (0-5)
[2024-01-10 09:24] LABS: Estimated Average Glucose 177 mg/dL; Hemoglobin A1c % 7.8 % (<6.0)
[2024-01-10 10:06] LABS: Creatinine Urine 108.91 mg/dL; Microalbum/Creatinine Ratio Ur 26.6 ug/mg cr (<30)
[2024-01-10 10:16] LABS: Alanine Aminotransferase 11 U/L (0-31); Albumin Level 3.7 g/dL (3.5-5.0); Alkaline Phosphatase 100 U/L (39-117); Anion Gap 12 (12-20); Aspartate Amino Transferase 15 U/L (5-31); Bilirubin Total 0.4 mg/dL (0.0-1.0); Blood Urea Nitrogen 29 mg/dL (9-16); Calcium 8.9 mg/dL (8.4-10.2); Carbon Dioxide 26 mmol/L (22-29); Chloride 109 mmol/L (96-108); Cholesterol 117 mg/dL (<200); Estimated Glomerular Filt Rate 36; Glucose Fasting 164 mg/dL (60-99); HDL Cholesterol 38 mg/dL (>40); LDL Cholesterol Calculated 58 mg/dL (<100); Potassium 4.4 mmol/L (3.3-5.1); Sodium 143 mmol/L (135-145); Total Protein 6.2 g/dL (6.5-8.0); Triglycerides 106 mg/dL (<150)
[2024-01-10 10:36] LABS: TSH reflex Free T4 2.45 uIU/mL (0.32-4.0); Vitamin D 25-OH Total 47.6 ng/mL (>30)
[2024-01-10 10:53] LABS: Folate 9.3 ng/mL (> or = 4.0); Vitamin B12 675 pg/mL (200-900)
== END 2024-01-10 08:16 | disposition home or self-care (01) ==
LOC: HO.LAB 08:15
PROVIDERS: PCP Internal Medicine; Visit Provider Internal Medicine Hypertension Specialist
DX: E11.9 Type 2 diabetes mellitus without complications (principal); E78.00 Pure hypercholesterolemia, unspecified; E53.8 Deficiency of other specified B group vitamins; D64.9 Anemia, unspecified; E55.9 Vitamin D deficiency, unspecified; R82.90 Unspecified abnormal findings in urine
CPT/HCPCS: 36415; 80053; 80061; 81001; 82043; 82306; 82570; 82607; 82746; 83036; 84443; 85025; 87086; 87088; 87186

== ENCOUNTER 2024-01-17 11:14 | Outpatient (AMB) | payer MEDICARE, OTHER, SELFPAY ==
--- NOTE | 2024-01-17 11:19 | HO.NEPHOV_ITS ---
Vital Signs 01/17/24 11:20 Height 5 ft 2 in Weight 158 lb BMI 28.9 BP 126/44 L Blood Pressure Location Lt brachial Position Sitting Intake Visit Reasons: Anemia/ May FU/ LVM Stave Cutting Supervisor Required: No Accompanied by: Daughter Allergies doxycycline Allergy (Mild, Verified 01/17/24 11:22) Vomiting levetiracetam [From Keppra] Allergy (Mild, Verified 01/17/24 11:22) Vomiting amoxicillin Allergy (Unknown, Verified 01/17/24 11:22) rash Penicillins Allergy (Unknown, Verified 01/17/24 11:22) rash prednisone Allergy (Unknown, Verified 01/17/24 11:22) rash ceftriaxone [From Rocephin] Allergy (Verified 01/17/24 11:22) Rash milk Allergy (Verified 01/17/24 11:22) Unknown omeprazole Adverse Reaction (Unknown, Verified 01/17/24 11:22) worsening heartburn ranitidine Adverse Reaction (Unknown, Verified 01/17/24 11:22) worsening heartburn, abdominal pain (ONLY to generic) HPI Comments Details: 82-year-old woman with a history of longstanding diabetes mellitus for more than 30 years along with hypertension and peripheral vascular disease. She was on losartan for quite some time. Recently was shortness discontinued due to a bump in the creatinine. She was on metformin which has been held due to worsening serum creatinine. Farxiga has been added. She has increased urination otherwise no other issues. She was accompanied by her daughter today. She has extensive to vascular disease undergone stent placements for progressive disease. History of coronary disease as well. She has history of smoking for almost 30 years but she quit smoking more than 20 years ago. 08/02/23: Feels better Has dysuria - this started after staring SGLT-2 inhibitor 01/17/24 s/p Angiogram last week c/o dysuria and burning sensation PFSH Medical History Chronic kidney disease, stage 4 (severe) Chronic kidney disease, stage III (moderate) Atrophic vaginitis Orbital fracture Upper GI bleeding Hearing impairment Seizure Recurrent urinary tract infection Overweight (BMI 25.0-29.9) Vitamin D deficiency Allergic rhinitis Meralgia paresthetica of right side Anemia GERD without esophagitis Asthma Hyperkalemia Diabetic polyneuropathy associated with type 2 diabetes mellitus Peripheral vascular disease Pure hypercholesterolemia Benign essential hypertension Carotid atherosclerosis Coronary artery disease (~06/09/21) Type 2 diabetes mellitus with diabetic polyneuropathy Surgical History (Updated 01/17/24 @ 11:23 by Fabiola Lemons) Hx of colonoscopy History of endoscopy S/P CABG x 4 (~06/09/21) History of cardiac catheterization (~12/2023) History of left-sided carotid endarterectomy S/P LASIK surgery History of right-sided carotid endarterectomy History of laparoscopic cholecystectomy Family History Father CVD (cardiovascular disease) Mother Stroke Brother CVD (cardiovascular disease) Esophageal cancer Social History Household Members: Children Housing: House Are you a primary client care specialist to a significant other at home: No Do you presently have visiting nurse or other home services: No Alcohol intake: never Comment: cardiac Patient Tobacco Use Status: Former Tobacco user Tobacco use type: Cigarette e-Cigarette/Vaping Use: Never Used Second Hand Smoke Exposure: No Advance Directives Date on File: 01/11/22 service: No Current occupational status: retired 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 Cognitive needs: No Hearing needs: No Vision needs: No Physical Exam Vital Signs: Last Vital Signs BP 126/44 L 01/17/24 11:20 BMI result Body Mass Index 28.9 Const General: comfortable; No acute distress Orientation/consciousness: patient oriented x3 Eyes General: appearance normal, both eyes and all related structures Visual Marie: normal visual marie by confrontation Neck Neck: Yes supple and Yes no JVD Resp Effort & Inspection: normal respiratory effort and respiratory effort not decreased Auscultation: rhonchi Cardio Palpation: no palpable S3 and no palpable S4 Heart sounds: no rubs GI Inspection: Yes normal to inspection Palpation (GI): Soft to palpation Percussion: Yes normal to percussion Auscultation: normal bowel sounds General: Yes no CVA tenderness Back/Spine/Pelvis Back: no CVA tenderness Skin General skin exam: no petechiae and no purpura Neuro General: patient oriented x3 and no focal motor deficits Extrem General: No clubbing and No edema Results Reviewed Nephrology Results: Hgb 11.5 g/dl (12.0-16.0) L 01/10/24 WBC 6.3 X10*3/uL (4.8-10.8) 01/10/24 Plt Count 278 X10*3/uL (160-400) 01/10/24 Sodium 143 mmol/L (135-145) 01/10/24 Potassium 4.4 mmol/L (3.3-5.1) 01/10/24 Chloride 109 mmol/L (96-108) H 01/10/24 Carbon Dioxide 26 mmol/L (22-29) 01/10/24 BUN 29 mg/dL (9-16) H 01/10/24 Creatinine 1.42 mg/dL (0.5-1.4) H 01/10/24 Calcium 8.9 mg/dL (8.4-10.2) 01/10/24 Urine Protein Trace mg/dL (Neg-Trace) 01/10/24 Urine Creatinine 108.91 mg/dL 01/10/24 Assessment & Plan Assessment & Plan (1) Chronic kidney disease, stage 4 (severe): Code(s): N18.4 - Chronic kidney disease, stage 4 (severe) Category: Medical (2) Anemia: Code(s): D64.9 - Anemia, unspecified Category: Medical Qualifiers: Anemia type: unspecified type Qualified Code(s): D64.9 - Anemia, unspecified (3) Chronic kidney disease, stage III (moderate): Code(s): N18.30 - Chronic kidney disease, stage 3 unspecified Category: Medical Qualifiers: Chronic kidney disease stage 3 subtype: stage 3b (GFR 30-44) Qualified Code(s): N18.32 - Chronic kidney disease, stage 3b (4) Hyperkalemia: Code(s): E87.5 - Hyperkalemia Category: Medical (5) Peripheral vascular disease: Code(s): I73.9 - Peripheral vascular disease, unspecified Category: Medical (6) Coronary artery disease: Onset Date: ~06/09/21 Comment: S/P stenting of ostial LAD; S/P CABG x 4 (RODRIGUEZ-mid LAD, SVG-PLV, left radial artery-OM, SVG-diag) on 06/09/21 Code(s): I25.10 - Atherosclerotic heart disease of [place] coronary artery without angina pectoris Category: Medical Qualifiers: Coronary Disease-Associated Artery/Lesion type: [place] artery [place] vs. transplanted heart: [place] heart Associated angina: without angina Qualified Code(s): I25.10 - Atherosclerotic heart disease of [place] coronary artery without angina pectoris (7) Carotid atherosclerosis: Comment: S/P left carotid revascularization and endarterectomy in 2019 Code(s): I65.29 - Occlusion and stenosis of unspecified carotid artery Category: Medical Qualifiers: Laterality: left Qualified Code(s): I65.22 - Occlusion and stenosis of left carotid artery (8) UTI due to Klebsiella species: Code(s): N39.0 - Urinary tract infection, site not specified; B96.89 - Other specified bacterial agents as the cause of diseases classified elsewhere Category: Medical Plan 82-year-old woman with CKD in a setting of hypertension longstanding diabetes mellitus and peripheral vascular disease. Baseline creatinine is around 1.0 mg/dL. Creatinine is at 1.42 pre angiogram BP is well controlled Obstructive uropathy ruled out Based on the urine findings I do not believe she has any active glomerulonephritis or interstitial disease at this time. Glycosuria due to SGLT-2 inhibitor NO Proteinuria Potassium is better controlled Recommendations Maintain BP < 130/80 and A1C < 7% No indication for renal Doppler at this time. Low-potassium diet. Increase fluid intake. Avoid nephrotoxins including NSAIDs. r/o UTI- check c/s Will check post angiogram One dose of Diflucan - she is on SGLT-2 inhibitors Orders: Orders Urine Culture Today B96.89 - Other specified bacterial agents as the cause of diseases classified elsewhere, N18.32 - Chronic kidney disease, stage 3b, N18.4 - Chronic kidney disease, stage 4 (severe), N39.0 - Urinary tract infection, site not specified Basic Metabolic Panel Today B96.89 - Other specified bacterial agents as the cause of diseases classified elsewhere, N18.32 - Chronic kidney disease, stage 3b, N18.4 - Chronic kidney disease, stage 4 (severe), N39.0 - Urinary tract infection, site not specified Complete Blood Count Auto Diff Today B96.89 - Other specified bacterial agents as the cause of diseases classified elsewhere, N18.30 - Chronic kidney disease, stage 3 unspecified, N18.4 - Chronic kidney disease, stage 4 (severe), N39.0 - Urinary tract infection, site not specified Medications: New fluconazole (Diflucan) 100 mg PO DAILY 1 tab 0RF Coding Level of Care Code Est Pt Level 4 (95634) Diagnoses Chronic kidney disease, stage 4 (severe) N18.4 Anemia, unspecified type D64.9 Anemia type: unspecified type Stage 3b chronic kidney disease N18.32 Chronic kidney disease stage 3 subtype: stage 3b (GFR 30-44) Hyperkalemia E87.5 Peripheral vascular disease I73.9 Coronary artery disease involving [place] coronary artery of [place] heart without angina pectoris I25.10 Coronary Disease-Associated Artery/Lesion type: [place] artery [place] vs. transplanted heart: [place] heart Associated angina: without angina Atherosclerosis of left carotid artery I65.22 Laterality: left UTI due to Klebsiella species N39.0; B96.89
[2024-01-17 11:20] VITALS: BP 126/44; BMI 28.9
== END 2024-01-17 11:44 | disposition home or self-care (01) ==
PROVIDERS: PCP Internal Medicine; Visit Provider Internal Medicine Hypertension Specialist
DX: N18.4 Chronic kidney disease, stage 4 (severe) (principal); D64.9 Anemia, unspecified; N18.32 Chronic kidney disease, stage 3b; E87.5 Hyperkalemia; I73.9 Peripheral vascular disease, unspecified; I25.10 Atherosclerotic heart disease of native coronary artery without angina pectoris; I65.22 Occlusion and stenosis of left carotid artery; N39.0 Urinary tract infection, site not specified; B96.89 Other specified bacterial agents as the cause of diseases classified elsewhere
CPT/HCPCS: 99214

== ENCOUNTER → 2024-01-17 11:14 | Outpatient (BNVA) | payer MEDICARE, OTHER, SELFPAY | PROVIDERS: PCP Internal Medicine; Visit Provider Internal Medicine Hypertension Specialist | DX: N18.4 Chronic kidney disease, stage 4 (severe) (principal); D64.9 Anemia, unspecified; E87.5 Hyperkalemia; I73.9 Peripheral vascular disease, unspecified; I25.10 Atherosclerotic heart disease of native coronary artery without angina pectoris; I65.22 Occlusion and stenosis of left carotid artery; N39.0 Urinary tract infection, site not specified; B96.89 Other specified bacterial agents as the cause of diseases classified elsewhere | CPT/HCPCS: 36415; 80048; 85025; 87086; 87088; 87186; 99212 ==

== ENCOUNTER 2024-01-17 11:51 | Outpatient (REF) | payer MEDICARE, OTHER, SELFPAY ==
[2024-01-17 13:52] LABS: MANUAL DIFF FLAG NO
[2024-01-17 13:55] LABS: Basophils Absolute Auto 0.1 X10*3/uL (0.0-0.2); Basophils Percent Auto 0.8 % (0-2); Eosinophils Absolute Auto 0.2 X10*3/uL (0.0-0.4); Eosinophils Percent Auto 2.7 % (0-4); Hematocrit 34.6 % (37.0-47.0); Hemoglobin 11.1 g/dl (12.0-16.0); Imm Gran Abs Auto 0.02 X10*3/uL (0.00-0.03); Imm Gran Pct Auto 0.3 % (0.0-0.4); Lymphocytes Absolute Auto 0.8 X10*3/uL (1.2-4.9); Lymphocytes Percent Auto 10.6 % (20-40); Mean Corpuscular HGB Conc 32.1 g/dl (31.0-35.0); Mean Corpuscular Hemoglobin 27.8 pg (27.0-33.0); Mean Corpuscular Volume 86.5 fL (80.0-98.0); Mean Platelet Volume 8.7 fL (9.4-12.3); Monocytes Absolute Auto 0.5 X10*3/uL (0.1-1.2); Monocytes Percent Auto 6.5 % (2-11); Neutrophils Absolute Auto 6.2 x10*3/uL (2.0-8.3); Neutrophils Percent Auto 79.1 % (45-73); Platelet Count 298 X10*3/uL (160-400); Red Cell Distribution Width 14.6 % (11.0-16.0); White Blood Count 7.8 X10*3/uL (4.8-10.8)
[2024-01-17 14:17] LABS: Anion Gap 14 (12-20); Blood Urea Nitrogen 35 mg/dL (9-16); Calcium 9.2 mg/dL (8.4-10.2); Carbon Dioxide 24 mmol/L (22-29); Chloride 109 mmol/L (96-108); Estimated Glomerular Filt Rate 31; Glucose Random 209 mg/dL (60-115); Potassium 4.6 mmol/L (3.3-5.1); Sodium 142 mmol/L (135-145)
== END 2024-01-17 11:52 | disposition home or self-care (01) ==
LOC: HO.10HDL 11:51
PROVIDERS: Visit Provider Internal Medicine Hypertension Specialist
DX: Z13.89 Encounter for screening for other disorder (principal)
CPT/HCPCS: 36415; 80048; 85025; 87086; 87088; 87186

== ENCOUNTER 2024-01-18 11:08 | Outpatient (REF) | payer MEDICARE, OTHER, SELFPAY | END 2024-01-18 11:09 | disposition home or self-care (01) | LOC: HO.HAP 11:08 | PROVIDERS: Visit Provider Internal Medicine | DX: Z13.89 Encounter for screening for other disorder (principal) ==

== ENCOUNTER 2024-02-12 09:54 | Outpatient (REF) | payer MEDICARE, OTHER, SELFPAY ==
[2024-02-12 11:06] LABS: Appearance Urine Turbid; Color Urine Yellow; Glucose Urine UA >=1000 mg/dL (Negative); Leukocyte Esterase Urine Moderate (2+) (Negative); Nitrite Urine Positive (Negative); Specific Gravity - Urine >= 1.030 (1.005-1.025); UMIC TRIGGER UACC YES; Urine Blood Trace (Negative); Urine Ketones Negative (Negative); Urine Protein Negative (Neg-Trace)
[2024-02-12 11:25] LABS: Bacteria Urine 4+ (None Seen); Hyaline Casts Urine 0-2 /LPF (0-2); RBC Urine 0-2 /HPF (0-2); UACC Culture Trigger YES; WBC Urine >50 /HPF (0-5)
== END 2024-02-12 09:55 | disposition home or self-care (01) ==
LOC: HO.10HDLNP 09:54
PROVIDERS: Visit Provider Internal Medicine
DX: R30.0 Dysuria (principal)
CPT/HCPCS: 81001; 87086; 87088; 87186

== ENCOUNTER 2024-02-13 10:43 | Outpatient (AMB) | payer MEDICARE, OTHER, SELFPAY ==
--- NOTE | 2024-02-13 10:50 | MHC.PC.OV ---
Vital Signs 02/13/24 10:52 Height 5 ft 2 in Weight 160 lb 8 oz BMI 29.4 BP 120/70 Blood Pressure Location Lt brachial Position Sitting Pulse 60 Pulse Source Pulse Oximeter Pulse Oximetry (%) 100 Oxygen Delivery Method Room Air Intake Visit Reasons: CAD, DM, CKD, hyperlipidemia, HTN Intake Note: Patient is here to follow up on CAD, DM, CKD, HLD, HTN. Traveling Representative Required: No Machine Staker: Present Accompanied by: Daughter Allergies doxycycline Allergy (Mild, Verified 02/13/24 11:30) Vomiting levetiracetam [From Keppra] Allergy (Mild, Verified 02/13/24 11:30) Vomiting amoxicillin Allergy (Unknown, Verified 02/13/24 11:30) rash Penicillins Allergy (Unknown, Verified 02/13/24 11:30) rash prednisone Allergy (Unknown, Verified 02/13/24 11:30) rash ceftriaxone [From Rocephin] Allergy (Verified 02/13/24 11:30) Rash milk Allergy (Verified 02/13/24 11:30) Unknown omeprazole Adverse Reaction (Unknown, Verified 02/13/24 11:30) worsening heartburn ranitidine Adverse Reaction (Unknown, Verified 02/13/24 11:30) worsening heartburn, abdominal pain (ONLY to generic) Medication List - Last Reconciled 02/13/24 by Jimmy Awan MD albuterol sulfate 90 mcg/actuation 2 puffs inhalation Q6H PRN 30 days albuterol sulfate 2.5 mg (3 mL) inhalation QID PRN atorvastatin 80 mg PO BEDTIME 90 days blood sugar diagnostic (FreeStyle Lite Strips) As directed- to test blood sugar TID cholecalciferol (vitamin D3) 50 mcg PO DAILY 90 days clopidogrel 75 mg PO DAILY 90 days ezetimibe 10 mg PO DAILY Farxiga (dapagliflozin propanediol) 10 mg PO QAM 90 days NS glyburide 5 mg PO DAILY 90 days lancets (FreeStyle Lancets) As directed once a day latanoprost 0.005% 1 drp ophthalmic (eye) BEDTIME loratadine 10 mg PO DAILY PRN 90 days NS metoprolol succinate ER 50 mg PO DAILY nitroglycerin 0.3 mg sublingual DAILY PRN ondansetron 4 mg PO Q8H PRN 15 days pantoprazole 40 mg PO DAILY sucralfate 1 g PO BEDTIME 30 days triamcinolone acetonide 0.1% 1 appl topical BID Tobacco use date assessed: 02/13/24 Fall risk assessment: No Falls in past year Last assessed Fall Risk: 02/13/24 Dental Screening Dental Screen Date: 10/24/23 HPI CAD, DM, CKD, hyperlipidemia, HTN HPI Details Patient comes in today for her follow up visit States that she currently feels okay Reports that she had a cardiac cath/angiogram done at [facility] last month and was advised that she has an area of defect/blockage but they are not able to do anything about it at this time and to continue with present management for now She presently denies any headaches or dizziness Denies any chest pains, no increased SOB No nausea/vomiting, no abdominal pain No change in bowel habits noted Needs a couple of her Rx refilled She had her follow up labs done a few weeks ago - to discuss her results [facility] Medical History Chronic kidney disease, stage 4 (severe) Chronic kidney disease, stage III (moderate) Atrophic vaginitis Orbital fracture Upper GI bleeding Hearing impairment Seizure Recurrent urinary tract infection Overweight (BMI 25.0-29.9) Vitamin D deficiency Allergic rhinitis Meralgia paresthetica of right side Anemia GERD without esophagitis Asthma Hyperkalemia Diabetic polyneuropathy associated with type 2 diabetes mellitus Peripheral vascular disease Pure hypercholesterolemia Benign essential hypertension Carotid atherosclerosis Coronary artery disease (~06/09/21) Type 2 diabetes mellitus with diabetic polyneuropathy Surgical History Hx of colonoscopy History of endoscopy S/P CABG x 4 (~06/09/21) History of cardiac catheterization (~12/2023) History of left-sided carotid endarterectomy S/P LASIK surgery History of right-sided carotid endarterectomy History of laparoscopic cholecystectomy Family History Father CVD (cardiovascular disease) Mother Stroke Brother CVD (cardiovascular disease) Esophageal cancer Social History Household Members: Children Housing: House Are you a primary care assistant to a significant other at home: No Do you presently have visiting nurse or other home services: No Alcohol intake: never Comment: cardiac Patient Tobacco Use Status: Former Tobacco user Tobacco use type: Cigarette e-Cigarette/Vaping Use: Never Used Second Hand Smoke Exposure: No Advance Directives Date on File: 01/11/22 service: No Current occupational status: retired 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 Aquiles Alford, Yohana Coto, Jay Jay Metz and colleagues, with an educational yessi from [employer]. Review of Systems Const Denies chills, Denies fatigue, Denies fever(s) and Denies headache(s) ENT Denies dysphagia, Denies dizziness, Denies otalgia, Denies headache(s), Reports hearing loss, Denies neck pain, Denies odynophagia and Denies sore throat Card Denies chest pain, Denies palpitations and Reports dyspnea on exertion (mild) Resp Denies cough, Reports dyspnea on exertion (mild) and Denies wheezing GI Denies abdominal pain, Denies constipation, Denies dysphagia, Denies heartburn, Denies diarrhea, Denies nausea, Denies odynophagia and Denies vomiting Denies difficulty voiding, Denies nocturia, Denies dysuria (but reports (+) mild burning sensation at times) and Reports urinary urgency Musc Denies back pain and Denies neck pain Skin/Breast Denies rash Neuro Denies dizziness and Denies headache(s) Endo Denies fatigue and Denies palpitations Aller/Immun Denies wheezing Physical exam (Primary Care) Vital Signs: Last Vital Signs Pulse 60 02/13/24 10:52 BP 120/70 02/13/24 10:52 Pulse Ox 100 02/13/24 10:52 Oxygen Delivery Method Room Air 02/13/24 10:52 BMI result Body Mass Index 29.4 Tobacco/Smoking Status: Tobacco use Status Tobacco use date assessed 02/13/24 02/13/24 10:59 Patient Tobacco Use Status Former Tobacco user 02/13/24 10:59 Tobacco use type Cigarette 02/13/24 10:59 e-Cigarette/Vaping Use Never Used 02/13/24 10:59 Thrive Assessment: Date of Thrive Assessment Date Thrive assessed 10/24/23 02/13/24 10:59 Const General: no acute distress and alert HENMT Ears: TM's normal bilaterally and EAC's normal Throat: Yes posterior oropharynx normal and Yes tonsils normal (no TP congestion noted) Neck Neck: Yes no lymphadenopathy and Yes supple Thyroid: Thyroid normal Resp Auscultation: clear to auscultation bilaterally, no rales and no wheezes Cardio Rate: regular rate Rhythm: regular rhythm Heart sounds: no murmurs GI Palpation (GI): Soft to palpation and nontender Auscultation: normal bowel sounds General: Yes no CVA tenderness Back/Spine/Pelvis Back: no CVA tenderness Thoracic/Lumbar Spine: No lumbar spinal tenderness Skin Rashes: no rashes Extrem General: Yes no clubbing, cyanosis or edema Results Reviewed Results Reviewed: Laboratory Tests 01/10/24 01/10/24 01/17/24 08:21 08:40 11:55 WBC 7.8 Hgb 11.1 L Hct 34.6 L Plt Count 298 Sodium 142 Potassium 4.6 Creatinine 1.42 H 1.61 H Estimated GFR 36 31 Random Glucose 209 H Fasting Glucose 164 H Hemoglobin A1c % 7.8 H Calcium 9.2 AST 15 ALT 11 Triglycerides 106 Cholesterol 117 LDL Cholesterol, Calc 58 HDL Cholesterol 38 L Vitamin B12 675 25-OH Vitamin D Total 47.6 TSH 2.45 Ur Specific [place] Urine Protein Urine Glucose (UA) Urine Blood Urine Nitrite Ur Leukocyte Esterase Microalb/Creat Ratio 26.6 02/12/24 09:56 WBC Hgb Hct Plt Count Sodium Potassium Creatinine Estimated GFR Random Glucose Fasting Glucose Hemoglobin A1c % Calcium AST ALT Triglycerides Cholesterol LDL Cholesterol, Calc HDL Cholesterol Vitamin B12 25-OH Vitamin D Total TSH Ur Specific [place] >= 1.030 H Urine Protein Negative Urine Glucose (UA) >=1000 H Urine Blood Trace H Urine Nitrite Positive H Ur Leukocyte Esterase Moderate (2+) H Microalb/Creat Ratio Assessment and Plan Assessment & Plan (1) Coronary artery disease: Onset Date: ~06/09/21 Comment: S/P stenting of ostial LAD; S/P CABG x 4 (RODRIGUEZ-mid LAD, SVG-PLV, left radial artery-OM, SVG-diag) on 06/09/21 Code(s): I25.10 - Atherosclerotic heart disease of [place] coronary artery without angina pectoris Qualifiers: Coronary Disease-Associated Artery/Lesion type: [place] artery [place] vs. transplanted heart: [place] heart Associated angina: without angina Qualified Code(s): I25.10 - Atherosclerotic heart disease of [place] coronary artery without angina pectoris Plan: S/P CABG x 4 in May 2021 States that she had an angiogram/cardiac cath done at [facility] last month and was reportedly advised that she has some defect/blockage noted but they are not able to do any intervention on this and that she should just continue with her present management - will try to obtain a copy of her cardiac cath report for review Patient currently remains mostly asymptomatic from a cardiac standpoint Continue Metoprolol ER 50 mg QD and Clopidogrel 75 mg QD; Aspirin 81 mg QD was previously discontinued due to her upper GI bleeding Patient also has NTG 0.4 mg tablets to take SL PRN for chest pains Follow up with cardiology (Dr. Alba) as scheduled (2) Carotid atherosclerosis: Comment: S/P left carotid revascularization and endarterectomy in 2018 Code(s): I65.29 - Occlusion and stenosis of unspecified carotid artery Qualifiers: Laterality: left Qualified Code(s): I65.22 - Occlusion and stenosis of left carotid artery Plan: Continue Clopidogrel 75 mg QD She had a repeat carotid US done last month that came out stable with no significant disease progression Follow up with vascular surgery (Dr. Jesus) as scheduled (3) Peripheral vascular disease: Code(s): I73.9 - Peripheral vascular disease, unspecified Plan: Follow up with vascular surgery as scheduled (4) Pure hypercholesterolemia: Code(s): E78.00 - Pure hypercholesterolemia, unspecified Plan: Results of her labs done a few weeks ago reviewed and discussed with patient - her cholesterol levels have improved significantly from previous Reinforced low cholesterol diet Continue Atorvastatin 80 mg QD and Ezetimibe 10 mg QD Will recheck her labs and fasting lipids in 3 months for follow up (5) Benign essential hypertension: Code(s): I10 - Essential (primary) hypertension Plan: Reinforced low-sodium diet - goal is systolic BP of at least 120 to 130 mm or less due to her comorbidities Continue Amlodipine 5 mg QD and Metoprolol ER 50 mg QD; Losartan was previously discontinued due to hyperkalemia (6) Type 2 diabetes mellitus with diabetic polyneuropathy: Code(s): E11.42 - Type 2 diabetes mellitus with diabetic polyneuropathy Qualifiers: 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 block assembler insulin use: without care home use Qualified Code(s): E11.42 - Type 2 diabetes mellitus with diabetic polyneuropathy Plan: Her HgbA1c was at 7.8% on her recent labs (this was at 8.0% a few months ago) - goal is < 7.0% Reinforced diabetic diet She was taken OFF Metformin a few months ago due to her declining renal function and is currently on Farxiga 10 mg QD and Glyburide 5 mg QD We also referred her to a habilitative interventionist to help advise her on how to navigate her diet at her last visit (7) Diabetic polyneuropathy associated with type 2 diabetes mellitus: Code(s): E11.42 - Type 2 diabetes mellitus with diabetic polyneuropathy Plan: Continue Oxycodone-Acetaminophen 5-325 mg 2 to 3 times a day ONLY NEEDED for severe pain Will consider starting on Gabapentin if symptoms progress or worsen (8) Chronic kidney disease, stage 4 (severe): Code(s): N18.4 - Chronic kidney disease, stage 4 (severe) Plan: Her serum creatinine and GFR appears to have stabilized lately Follow up with nephrology as scheduled Will continue to monitor GFR and renal function regularly (9) Anemia: Code(s): D64.9 - Anemia, unspecified Qualifiers: Anemia type: unspecified type Qualified Code(s): D64.9 - Anemia, unspecified Plan: Stable - was most likely multifactorial, including due to upper GI bleeding last year that required Hemospray and 2 units of PRBC Will continue to monitor her CBC regularly Follow up with hematology (Dr. Vazquez) as scheduled (10) Asthma: Code(s): J45.909 - Unspecified asthma, uncomplicated Qualifiers: Asthma severity: moderate Asthma persistence: persistent Asthma complication type: uncomplicated Qualified Code(s): J45.40 - Moderate persistent asthma, uncomplicated Plan: Stable Continue Albuterol HFA 2 puffs 4 times a day as needed Patient also has a nebulizer that she uses (with Albuterol solution 0.083%) up to 4 times a day when needed (11) Allergic rhinitis: Code(s): J30.9 - Allergic rhinitis, unspecified Qualifiers: Allergic rhinitis trigger: unspecified Allergic rhinitis seasonality: unspecified Qualified Code(s): J30.9 - Allergic rhinitis, unspecified Plan: Continue Loratadine 10 mg QD PRN (12) Vitamin D deficiency: Code(s): E55.9 - Vitamin D deficiency, unspecified Plan: Continue Vitamin D3 1000 units QD (13) Seizure: Code(s): R56.9 - Unspecified convulsions Plan: Most likely due to (adverse reaction from) Doxycycline; has had no recurrence of seizures since her discharge from [facility] last year CTA of the head/neck and MRI of the brain done last year came out negative EEG done showed mild to moderate background slowing with occasional triphasic waves but no epileptiform activity was noted Neurology (Dr. Hernandez) thinks that patient actually had a TIA instead of a seizure Follow up with neurology as scheduled (14) Overweight (BMI 25.0-29.9): Code(s): E66.3 - Overweight Plan: Reinforced diet/weight loss; exercise is unrealistic given patient's multiple comorbidities Plan Follow up in 3 months Orders: Orders Comprehensive [place]. Panel Fast 3 Months E78.00 - Pure hypercholesterolemia, unspecified Microalbumin, Random (w Creat) 3 Months E11.9 - Type 2 diabetes mellitus without complications UA CC w/rflx Micro + Cult 3 Months R30.0 - Dysuria Vitamin D 25-OH Total 3 Months E55.9 - Vitamin D deficiency, unspecified Hemoglobin A1c 3 Months E11.9 - Type 2 diabetes mellitus without complications Lipid Panel 3 Months E78.00 - Pure hypercholesterolemia, unspecified Complete Blood Count Auto Diff 3 Months D64.9 - Anemia, unspecified TSH reflex Free T4 3 Months E78.00 - Pure hypercholesterolemia, unspecified Vitamin B12 and Folate 3 Months E53.8 - Deficiency of other specified B group vitamins Medications: Refilled metoprolol succinate ER 50 mg PO DAILY 90 tabs 1RF triamcinolone acetonide 0.1% 1 appl topical BID 60 mL 3RF ondansetron 4 mg PO Q8H 15 days PRN 45 tabs 3RF nausea and vomiting Coding Level of Care Code Est Pt Level 4 (55299) Complex EM visit Add On G2211 Diagnoses Coronary artery disease involving [place] coronary artery of [place] heart without angina pectoris I25.10 Coronary Disease-Associated Artery/Lesion type: [place] artery [place] vs. transplanted heart: [place] heart Associated angina: without angina Atherosclerosis of left carotid artery I65.22 Laterality: left Peripheral vascular disease I73.9 Pure hypercholesterolemia E78.00 Benign essential hypertension I10 Type 2 diabetes mellitus with diabetic polyneuropathy, without long-term current use of insulin E11.42 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 care home insulin use: without care home use Diabetic polyneuropathy associated with type 2 diabetes mellitus E11.42 Chronic kidney disease, stage 4 (severe) N18.4 Anemia, unspecified type D64.9 Anemia type: unspecified type Moderate persistent asthma without complication J45.40 Asthma severity: moderate Asthma persistence: persistent Asthma complication type: uncomplicated Allergic rhinitis, unspecified seasonality, unspecified trigger J30.9 Allergic rhinitis trigger: unspecified Allergic rhinitis seasonality: unspecified Vitamin D deficiency E55.9 Seizure R56.9 Overweight (BMI 25.0-29.9) E66.3
[2024-02-13 10:52] VITALS: BP 120/70; PULSE 60; O2SAT 100; BMI 29.4
== END 2024-02-13 11:48 | disposition home or self-care (01) ==
PROVIDERS: PCP Internal Medicine; Visit Provider Internal Medicine
DX: I12.9 Hypertensive chronic kidney disease with stage 1 through stage 4 chronic kidney disease, or unspecified chronic kidney disease (principal); I73.9 Peripheral vascular disease, unspecified; E11.42 Type 2 diabetes mellitus with diabetic polyneuropathy; N18.4 Chronic kidney disease, stage 4 (severe); R56.9 Unspecified convulsions; I25.10 Atherosclerotic heart disease of native coronary artery without angina pectoris; I65.22 Occlusion and stenosis of left carotid artery; E78.00 Pure hypercholesterolemia, unspecified; D64.9 Anemia, unspecified; J45.40 Moderate persistent asthma, uncomplicated; J30.9 Allergic rhinitis, unspecified; E55.9 Vitamin D deficiency, unspecified
CPT/HCPCS: 99214; G2211

== ENCOUNTER 2024-05-12 08:18 | Outpatient (AMB) | payer MEDICARE, OTHER, SELFPAY ==
[2024-05-12 08:21] VITALS: BP 128/60; PULSE 58; BMI 29.3
--- NOTE | 2024-05-12 08:21 | MHC.OFFVIS ---
Vital Signs 05/12/24 08:21 Height 5 ft 2 in Weight 160 lb 0.889 oz BMI 29.3 BP 128/60 Blood Pressure Location Rt brachial Position Sitting Pulse 58 Pulse Source Pulse Oximeter Intake Visit Reasons: 6 month follow up Intake Note: Jermain presents in office today for a scheduled 6 mos FUV. CC: Pt was rx'd sucralfate and pantoprazole at their last visit. Pt reports that she is doing well since their last visit. They find that they are still having breakthrough sx, however; when they take their famotidine, they still find it helpful. Pt is still taking all medications as intended. [employer] Required: No Allergies evolocumab [From Repatha SureClick] Allergy (Intermediate, Verified 05/12/24 08:30) Hives doxycycline Allergy (Mild, Verified 05/12/24 08:30) Vomiting levetiracetam [From Keppra] Allergy (Mild, Verified 05/12/24 08:30) Vomiting amoxicillin Allergy (Unknown, Verified 05/12/24 08:30) rash Penicillins Allergy (Unknown, Verified 05/12/24 08:30) rash prednisone Allergy (Unknown, Verified 05/12/24 08:30) rash ceftriaxone [From Rocephin] Allergy (Verified 05/12/24 08:30) Rash milk Allergy (Verified 05/12/24 08:30) Unknown omeprazole Adverse Reaction (Unknown, Verified 05/12/24 08:30) worsening heartburn ranitidine Adverse Reaction (Unknown, Verified 05/12/24 08:30) worsening heartburn, abdominal pain (ONLY to generic) HPI HPI 6 month follow up: Details: LAST VISIT: Anemia GERD (gastroesophageal reflux disease) Postprandial diarrhea Plan Continue pantoprazole and sucralfate. Patient is encouraged to avoid dietary triggers and late night snacking. Staying upright for minimum 3 hours after meals discussed with patient. Currently patient is moving her bowels without any issues. Encouraged to take stool softeners or MiraLax if needed. Patient was encouraged to avoid carbs as her A1c increased quite a bit. Patient's PCP will be rechecking A1c in few months. Both patient and her daughter are agreeable to plan of care and verbalizes understanding of instructions. They were given the opportunity to ask questions and all questions answered ? Thank you for allowing me to participate in her care Medications Refilled pantoprazole 40 mg PO DAILY 90 tabs 3RF K21.9 sucralfate 1 g PO BEDTIME 30 days 90 tabs 3RF TODAY'S VISIT: Patient is here today for follow-up. Patient reports that she has been feeling well. Occasional breakthrough epigastric discomfort after eating certain food. Patient tries to stay away from tomato sauce. Patient reports that sometimes after eating ice cream she will also have abdominal pain and bloating. Patient is due to go for her blood work as ordered by PCP. Last blood work was done end of December no change in her results. Patient denies dyspepsia, dysphagia or odynophagia. Denies melena, hematochezia, unintentional weight loss or ribbon like stools. [facility] Medical History Chronic kidney disease, stage 4 (severe) Chronic kidney disease, stage III (moderate) Atrophic vaginitis Orbital fracture Upper GI bleeding Hearing impairment Seizure Recurrent urinary tract infection Overweight (BMI 25.0-29.9) Vitamin D deficiency Allergic rhinitis Meralgia paresthetica of right side Anemia GERD without esophagitis Asthma Hyperkalemia Diabetic polyneuropathy associated with type 2 diabetes mellitus Peripheral vascular disease Pure hypercholesterolemia Benign essential hypertension Carotid atherosclerosis Coronary artery disease (~06/09/21) Type 2 diabetes mellitus with diabetic polyneuropathy Surgical History Hx of colonoscopy History of endoscopy S/P CABG x 4 (~06/09/21) History of cardiac catheterization (~12/2023) History of left-sided carotid endarterectomy S/P LASIK surgery History of right-sided carotid endarterectomy History of laparoscopic cholecystectomy Family History Father CVD (cardiovascular disease) Mother Stroke Brother CVD (cardiovascular disease) Esophageal cancer Social History Household Members: Children Housing: House Are you a primary home health care social worker to a significant other at home: No Do you presently have visiting nurse or other home services: No Alcohol intake: never Comment: cardiac Patient Tobacco Use Status: Former Tobacco user Tobacco use type: Cigarette e-Cigarette/Vaping Use: Never Used Second Hand Smoke Exposure: No Advance Directives Date on File: 01/11/22 service: No Current occupational status: retired 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 Cognitive needs: No Hearing needs: No Vision needs: No Review of Systems Const Denies weight gain and Denies weight loss ENT Reports no additional complaints, Denies dysphagia and Denies odynophagia Card Reports no additional complaints Resp Reports no additional complaints GI Denies abdominal pain, Denies belching, Denies melena, Denies bloating, Denies change in bowel habits, Denies dysphagia, Denies excessive flatus, Denies dyspepsia, Denies heartburn, Denies diarrhea, Denies loose stools, Denies nausea, Denies odynophagia and Denies vomiting Reports no additional complaints Musc Reports no additional complaints Neuro Reports no additional complaints Psych Reports no additional complaints Endo Reports no additional complaints Physical Exam Vital Signs: Last Vital Signs Pulse 58 05/12/24 08:21 BP 128/60 05/12/24 08:21 BMI result Body Mass Index 29.3 Const General: healthy appearing and no acute distress Nutritional Appearance: obese Orientation/consciousness: patient oriented x3 Resp Effort & Inspection: normal respiratory effort, able to speak in complete sentences, no tracheal deviation and symmetric chest movement Auscultation: clear to auscultation bilaterally Cardio Rate: regular rate GI Inspection: Yes normal to inspection, No distended and Yes obesity Palpation (GI): Soft to palpation, not firm, nontender and No hepatosplenomegaly present Auscultation: normal bowel sounds General: Yes no CVA tenderness Back/Spine/Pelvis Back: no CVA tenderness Skin General skin exam: elasticity normal, turgor normal and dry skin Neuro General: patient oriented x3 Psych Appearance: grossly normal Mental Status: mental status grossly normal Assessment & Plan Assessment & Plan (1) Anemia: Code(s): D64.9 - Anemia, unspecified Category: Medical Qualifiers: Anemia type: unspecified type Qualified Code(s): D64.9 - Anemia, unspecified (2) GERD (gastroesophageal reflux disease): Code(s): K21.9 - Gastro-esophageal reflux disease without esophagitis Qualifiers: Esophagitis presence: esophagitis presence not specified Qualified Code(s): K21.9 - Gastro-esophageal reflux disease without esophagitis (3) Postprandial diarrhea: Code(s): K52.9 - Noninfective gastroenteritis and colitis, unspecified Plan Patient will continue pantoprazole in the morning and sucralfate at bedtime. Avoid dietary triggers and late night snacking. Staying upright for minimum 3 hours after meals discussed with patient. Patient has blood work ordered by PCP will try to get it done. Follow-up in the office in 6 months, sooner on as needed basis. She is agreeable to this plan and verbalizes understanding of instructions. She was given the opportunity to ask questions and all questions answered. Thank you for allowing me to participate in her care Coding Level of Care Code Est Pt Level 3 (53548) Diagnoses Anemia, unspecified type D64.9 Anemia type: unspecified type Gastroesophageal reflux disease, unspecified whether esophagitis present K21.9 Esophagitis presence: esophagitis presence not specified Postprandial diarrhea K52.9 Time Spent (min) 25 Comment 15 minutes spent with patient and additional 10 minutes spent reviewing her records
== END 2024-05-12 08:58 | disposition home or self-care (01) ==
PROVIDERS: PCP Internal Medicine; Visit Provider Nurse Practitioner Family
DX: D64.9 Anemia, unspecified (principal); K21.9 Gastro-esophageal reflux disease without esophagitis; K52.9 Noninfective gastroenteritis and colitis, unspecified
CPT/HCPCS: 99213

== ENCOUNTER → 2024-05-12 08:18 | Outpatient (BNVA) | payer MEDICARE, OTHER, SELFPAY | PROVIDERS: PCP Internal Medicine; Visit Provider Nurse Practitioner Family | DX: K21.9 Gastro-esophageal reflux disease without esophagitis (principal); D64.9 Anemia, unspecified; K52.9 Noninfective gastroenteritis and colitis, unspecified | CPT/HCPCS: 99212 ==

== ENCOUNTER 2024-05-13 09:50 | Outpatient (REF) | payer MEDICARE, OTHER, SELFPAY ==
[2024-05-13 10:02] LABS: MANUAL DIFF FLAG NO
[2024-05-13 10:41] LABS: Basophils Percent Auto 0.5 % (0-2); Eosinophils Absolute Auto 0.2 X10*3/uL (0.0-0.4); Eosinophils Percent Auto 3.2 % (0-4); Hematocrit 35.7 % (37.0-47.0); Hemoglobin 11.5 g/dl (12.0-16.0); Imm Gran Abs Auto 0.01 X10*3/uL (0.00-0.03); Imm Gran Pct Auto 0.2 % (0.0-0.4); Lymphocytes Absolute Auto 0.8 X10*3/uL (1.2-4.9); Lymphocytes Percent Auto 13.2 % (20-40); Mean Corpuscular HGB Conc 32.2 g/dl (31.0-35.0); Mean Corpuscular Hemoglobin 27.4 pg (27.0-33.0); Mean Platelet Volume 8.8 fL (9.4-12.3); Monocytes Absolute Auto 0.6 X10*3/uL (0.1-1.2); Monocytes Percent Auto 9.8 % (2-11); Neutrophils Absolute Auto 4.6 x10*3/uL (2.0-8.3); Neutrophils Percent Auto 73.1 % (45-73); Platelet Count 298 X10*3/uL (160-400); Red Cell Distribution Width 14.6 % (11.0-16.0); White Blood Count 6.2 X10*3/uL (4.8-10.8)
[2024-05-13 10:52] LABS: Appearance Urine Cloudy; Color Urine Yellow; Glucose Urine UA 500 mg/dL (Negative); Leukocyte Esterase Urine Moderate (2+) (Negative); Nitrite Urine Positive (Negative); PH 5.5 (5.0-9.0); UMIC TRIGGER UA YES; UMIC TRIGGER UACC YES; Urine Blood Negative (Negative); Urine Ketones Negative (Negative); Urine Protein Trace mg/dL (Neg-Trace)
[2024-05-13 11:05] LABS: Estimated Average Glucose 180 mg/dL; Hemoglobin A1C 181.7911 umol/L; Hemoglobin A1c % 7.9 % (<6.0)
[2024-05-13 11:12] LABS: Bacteria Urine 4+ (None Seen); RBC Urine 0-2 /HPF (0-2); UACC Culture Trigger YES; WBC Clumps Urine Present; WBC Urine >50 /HPF (0-5)
[2024-05-13 11:20] LABS: Alanine Aminotransferase 12 U/L (0-31); Albumin Level 3.9 g/dL (3.5-5.0); Alkaline Phosphatase 91 U/L (39-117); Anion Gap 12 (12-20); Aspartate Amino Transferase 16 U/L (5-31); Bilirubin Total 0.4 mg/dL (0.0-1.0); Blood Urea Nitrogen 35 mg/dL (9-16); Calcium 8.8 mg/dL (8.4-10.2); Carbon Dioxide 28 mmol/L (22-29); Chloride 108 mmol/L (96-108); Cholesterol 117 mg/dL (<200); Estimated Glomerular Filt Rate 30; Glucose Fasting 175 mg/dL (60-99); HDL Cholesterol 38 mg/dL (>40); LDL Cholesterol Calculated 63 mg/dL (<100); Potassium 4.2 mmol/L (3.3-5.1); Sodium 144 mmol/L (135-145); Total Protein 6.6 g/dL (6.5-8.0); Triglycerides 82 mg/dL (<150)
[2024-05-13 11:24] LABS: TSH reflex Free T4 2.33 uIU/mL (0.32-4.0); Vitamin D 25-OH Total 54.9 ng/mL (>30)
[2024-05-13 11:30] LABS: Creatinine Urine 172.53 mg/dL; Microalbum/Creatinine Ratio Ur 13.3 ug/mg cr (<30)
[2024-05-13 11:47] LABS: Folate 9.8 ng/mL (> or = 4.0); Vitamin B12 622 pg/mL (200-900)
== END 2024-05-13 09:51 | disposition home or self-care (01) ==
LOC: HO.LAB 09:50
PROVIDERS: Absent Provider Internal Medicine; PCP Internal Medicine; Visit Provider Internal Medicine Hypertension Specialist
DX: D64.9 Anemia, unspecified (principal); E78.00 Pure hypercholesterolemia, unspecified; E11.9 Type 2 diabetes mellitus without complications; E55.9 Vitamin D deficiency, unspecified; E53.8 Deficiency of other specified B group vitamins; N17.9 Acute kidney failure, unspecified; N18.4 Chronic kidney disease, stage 4 (severe); N39.0 Urinary tract infection, site not specified; B96.89 Other specified bacterial agents as the cause of diseases classified elsewhere; E87.5 Hyperkalemia
CPT/HCPCS: 36415; 80053; 80061; 81001; 82043; 82306; 82570; 82607; 82746; 83036; 84443; 85025; 85027; 87086; 87088; 87186

== ENCOUNTER 2024-05-15 09:56 | Outpatient (AMB) | payer MEDICARE, OTHER, SELFPAY ==
[2024-05-15 10:03] VITALS: BP 134/60; PULSE 60; O2SAT 98
--- NOTE | 2024-05-15 10:03 | HO.NEPHOV ---
Vital Signs 05/15/24 10:03 Height 5 ft 2 in BP 134/60 Blood Pressure Location Rt brachial Position Sitting Pulse 60 Pulse Source Pulse Oximeter Pulse Oximetry (%) 98 Oxygen Delivery Method Room Air Intake Visit Reasons: 4 mon follow up/ Conf Deburring Technician Required: No Accompanied by: Daughter Allergies evolocumab [From Repatha SureClick] Allergy (Intermediate, Verified 05/15/24 10:06) Hives doxycycline Allergy (Mild, Verified 05/15/24 10:06) Vomiting levetiracetam [From Keppra] Allergy (Mild, Verified 05/15/24 10:06) Vomiting amoxicillin Allergy (Unknown, Verified 05/15/24 10:06) rash Penicillins Allergy (Unknown, Verified 05/15/24 10:06) rash prednisone Allergy (Unknown, Verified 05/15/24 10:06) rash ceftriaxone [From Rocephin] Allergy (Verified 05/15/24 10:06) Rash milk Allergy (Verified 05/15/24 10:06) Unknown omeprazole Adverse Reaction (Unknown, Verified 05/15/24 10:06) worsening heartburn ranitidine Adverse Reaction (Unknown, Verified 05/15/24 10:06) worsening heartburn, abdominal pain (ONLY to generic) Medication List - Last Reconciled 05/15/24 by Bjorn Larios MD albuterol sulfate 90 mcg/actuation 2 puffs inhalation Q6H PRN 30 days albuterol sulfate 2.5 mg (3 mL) inhalation QID PRN atorvastatin 80 mg PO BEDTIME 90 days bempedoic acid (Nexletol) 180 mg PO DAILY blood sugar diagnostic (FreeStyle Lite Strips) As directed- to test blood sugar TID cholecalciferol (vitamin D3) 50 mcg PO DAILY 90 days clopidogrel 75 mg PO DAILY 90 days ezetimibe 10 mg PO DAILY Farxiga (dapagliflozin propanediol) 10 mg PO QAM 90 days NS glyburide 5 mg PO DAILY 90 days lancets (FreeStyle Lancets) As directed once a day latanoprost 0.005% 1 drp ophthalmic (eye) BEDTIME loratadine 10 mg PO DAILY PRN 90 days NS metoprolol succinate ER 50 mg PO DAILY nitroglycerin mg sublingual ondansetron 4 mg PO Q8H PRN 15 days pantoprazole 40 mg PO DAILY sucralfate 1 g PO BEDTIME 30 days triamcinolone acetonide 0.1% 1 appl topical BID HPI Comments Details: 82-year-old woman with a history of longstanding diabetes mellitus for more than 30 years along with hypertension and peripheral vascular disease. She was on losartan for quite some time. Recently was shortness discontinued due to a bump in the creatinine. She was on metformin which has been held due to worsening serum creatinine. Farxiga has been added. She has increased urination otherwise no other issues. She was accompanied by her daughter today. She has extensive to vascular disease undergone stent placements for progressive disease. History of coronary disease as well. She has history of smoking for almost 30 years but she quit smoking more than 20 years ago. 08/02/23:Feels better;Has dysuria - this started after staring SGLT-2 inhibitor 01/17/24; s/p Angiogram last week;c/o dysuria and burning sensation 05/15/24 Here for follow up No urinary sypmtoms HAs dyspnea on exertion. No chest pain PFSH Medical History Chronic kidney disease, stage 4 (severe) Chronic kidney disease, stage III (moderate) Atrophic vaginitis Orbital fracture Upper GI bleeding Hearing impairment Seizure Recurrent urinary tract infection Overweight (BMI 25.0-29.9) Vitamin D deficiency Allergic rhinitis Meralgia paresthetica of right side Anemia GERD without esophagitis Asthma Hyperkalemia Diabetic polyneuropathy associated with type 2 diabetes mellitus Peripheral vascular disease Pure hypercholesterolemia Benign essential hypertension Carotid atherosclerosis Coronary artery disease (~06/09/21) Type 2 diabetes mellitus with diabetic polyneuropathy Surgical History Hx of colonoscopy History of endoscopy S/P CABG x 4 (~06/09/21) History of cardiac catheterization (~12/2023) History of left-sided carotid endarterectomy S/P LASIK surgery History of right-sided carotid endarterectomy History of laparoscopic cholecystectomy Family History Father CVD (cardiovascular disease) Mother Stroke Brother CVD (cardiovascular disease) Esophageal cancer Social History (Reviewed 05/15/24 @ 10:06 by CINTHIA Liao Household Members: Children Housing: House Are you a primary lead care manager to a significant other at home: No Do you presently have visiting nurse or other home services: No Alcohol intake: never Comment: cardiac Patient Tobacco Use Status: Former Tobacco user Tobacco use type: Cigarette e-Cigarette/Vaping Use: Never Used Second Hand Smoke Exposure: No Advance Directives Date on File: 01/11/22 service: No Current occupational status: retired 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 Cognitive needs: No Hearing needs: No Vision needs: No Physical Exam Vital Signs: Last Vital Signs Pulse 60 05/15/24 10:03 BP 134/60 05/15/24 10:03 Pulse Ox 98 05/15/24 10:03 Oxygen Delivery Method Room Air 05/15/24 10:03 Const General: comfortable; No acute distress Orientation/consciousness: patient oriented x3 Eyes General: appearance normal, both eyes and all related structures Visual Marie: normal visual marie by confrontation Neck Neck: Yes supple and Yes no JVD Resp Effort & Inspection: normal respiratory effort and respiratory effort not decreased Auscultation: rhonchi Cardio Palpation: no palpable S3 and no palpable S4 Heart sounds: no rubs GI Inspection: Yes normal to inspection Palpation (GI): Soft to palpation Percussion: Yes normal to percussion Auscultation: normal bowel sounds General: Yes no CVA tenderness Back/Spine/Pelvis Back: no CVA tenderness Skin General skin exam: no petechiae and no purpura Neuro General: patient oriented x3 and no focal motor deficits Extrem General: No clubbing and No edema Results Reviewed Results Reviewed: Renal USG ;Jul 2023 RIGHT KIDNEY: 9.3 x 4.3 x 4.0 cm (SAG x AP x TRV). The kidney is normal in size, contour, and echogenicity. Renal cortical thickness is normal. No renal calculi or hydronephrosis. 1.1 cm simple cyst in the lower pole. No follow-up imaging is recommended. LEFT KIDNEY: 10.0 x 5.1 x 4.1 cm (SAG x AP x TRV). The kidney is normal in size, contour, and echogenicity. Renal cortical thickness is normal. No calculi or focal parenchymal lesions. No hydronephrosis. US/US renal BI IMPRESSION: No hydronephrosis. Nephrology Results: Hgb 11.5 g/dl (12.0-16.0) L 05/13/24 WBC 6.2 X10*3/uL (4.8-10.8) 05/13/24 Plt Count 298 X10*3/uL (160-400) 05/13/24 Sodium 144 mmol/L (135-145) 05/13/24 Potassium 4.2 mmol/L (3.3-5.1) 05/13/24 Chloride 108 mmol/L (96-108) 05/13/24 Carbon Dioxide 28 mmol/L (22-29) 05/13/24 BUN 35 mg/dL (9-16) H 05/13/24 Creatinine 1.66 mg/dL (0.5-1.4) H 05/13/24 Calcium 8.8 mg/dL (8.4-10.2) 05/13/24 Urine Protein Trace mg/dL (Neg-Trace) 05/13/24 Urine Creatinine 172.53 mg/dL 05/13/24 Assessment & Plan Assessment & Plan (1) Chronic kidney disease, stage 4 (severe): Code(s): N18.4 - Chronic kidney disease, stage 4 (severe) Category: Medical (2) Anemia: Code(s): D64.9 - Anemia, unspecified Category: Medical Qualifiers: Anemia type: unspecified type Qualified Code(s): D64.9 - Anemia, unspecified (3) Chronic kidney disease, stage III (moderate): Code(s): N18.30 - Chronic kidney disease, stage 3 unspecified Category: Medical Qualifiers: Chronic kidney disease stage 3 subtype: stage 3b (GFR 30-44) Qualified Code(s): N18.32 - Chronic kidney disease, stage 3b (4) Hyperkalemia: Code(s): E87.5 - Hyperkalemia Category: Medical (5) Peripheral vascular disease: Code(s): I73.9 - Peripheral vascular disease, unspecified Category: Medical (6) Coronary artery disease: Onset Date: ~06/09/21 Comment: S/P stenting of ostial LAD; S/P CABG x 4 (RODRIGUEZ-mid LAD, SVG-PLV, left radial artery-OM, SVG-diag) on 06/09/21 Code(s): I25.10 - Atherosclerotic heart disease of [place] coronary artery without angina pectoris Category: Medical Qualifiers: Associated angina: without angina Coronary Disease-Associated Artery/Lesion type: [place] artery [place] vs. transplanted heart: [place] heart Qualified Code(s): I25.10 - Atherosclerotic heart disease of [place] coronary artery without angina pectoris (7) Carotid atherosclerosis: Comment: S/P left carotid revascularization and endarterectomy in 2019 Code(s): I65.29 - Occlusion and stenosis of unspecified carotid artery Category: Medical Qualifiers: Laterality: left Qualified Code(s): I65.22 - Occlusion and stenosis of left carotid artery (8) UTI due to Klebsiella species: Code(s): N39.0 - Urinary tract infection, site not specified; B96.89 - Other specified bacterial agents as the cause of diseases classified elsewhere Category: Medical Plan 83-year-old woman with CKD in a setting of hypertension longstanding diabetes mellitus and peripheral vascular disease. Baseline creatinine is around 1.0 mg/dL. Creatinine is at 1.42 pre angiogram Currently stable at 1.6 over marc past few months This might me the new baseline BP is well controlled Obstructive uropathy ruled out Based on the urine findings I do not believe she has any active glomerulonephritis or interstitial disease at this time. Glycosuria due to SGLT-2 inhibitor NO Proteinuria Potassium is better controlled Still with genital itching Recommendations Maintain BP < 130/80 and A1C < 7% No indication for renal Doppler at this time. Low-potassium diet. Increase fluid intake. Avoid nephrotoxins including NSAIDs. Probably has moniliasis secondary to SGLT-2 - can try Diflucan again x 3 days; Follow up with PCP Hold Plavix for 3 days while she is on Diflucan Orders: Orders Basic Metabolic Panel 4 Months N18.4 - Chronic kidney disease, stage 4 (severe) Complete Blood Count Auto Diff 4 Months N18.4 - Chronic kidney disease, stage 4 (severe) Coding Level of Care Code Est Pt Level 4 (23178) Diagnoses Chronic kidney disease, stage 4 (severe) N18.4 Anemia, unspecified type D64.9 Anemia type: unspecified type Stage 3b chronic kidney disease N18.32 Chronic kidney disease stage 3 subtype: stage 3b (GFR 30-44) Hyperkalemia E87.5 Peripheral vascular disease I73.9 Coronary artery disease involving [place] coronary artery of [place] heart without angina pectoris I25.10 Associated angina: without angina Coronary Disease-Associated Artery/Lesion type: [place] artery [place] vs. transplanted heart: [place] heart Atherosclerosis of left carotid artery I65.22 Laterality: left UTI due to Klebsiella species N39.0; B96.89
== END 2024-05-15 10:33 | disposition home or self-care (01) ==
PROVIDERS: PCP Internal Medicine; Visit Provider Internal Medicine Hypertension Specialist
DX: E11.22 Type 2 diabetes mellitus with diabetic chronic kidney disease (principal); N18.4 Chronic kidney disease, stage 4 (severe); D63.1 Anemia in chronic kidney disease; E87.5 Hyperkalemia; I73.9 Peripheral vascular disease, unspecified; I25.10 Atherosclerotic heart disease of native coronary artery without angina pectoris; I65.22 Occlusion and stenosis of left carotid artery; N39.0 Urinary tract infection, site not specified; B96.1 Klebsiella pneumoniae [K. pneumoniae] as the cause of diseases classified elsewhere
CPT/HCPCS: 99214

== ENCOUNTER → 2024-05-15 09:56 | Outpatient (BNVA) | payer MEDICARE, OTHER, SELFPAY | PROVIDERS: PCP Internal Medicine; Visit Provider Internal Medicine Hypertension Specialist | DX: E11.22 Type 2 diabetes mellitus with diabetic chronic kidney disease (principal); E11.51 Type 2 diabetes mellitus with diabetic peripheral angiopathy without gangrene; N18.4 Chronic kidney disease, stage 4 (severe); D63.1 Anemia in chronic kidney disease; E87.5 Hyperkalemia; I25.10 Atherosclerotic heart disease of native coronary artery without angina pectoris; I65.22 Occlusion and stenosis of left carotid artery; N39.0 Urinary tract infection, site not specified; B96.89 Other specified bacterial agents as the cause of diseases classified elsewhere | CPT/HCPCS: 99212 ==

== ENCOUNTER 2024-06-04 12:13 | Outpatient (AMB) | payer MEDICARE, OTHER, SELFPAY ==
[2024-06-04 12:31] VITALS: BP 110/76; PULSE 58; O2SAT 95; BMI 29.9
--- NOTE | 2024-06-04 12:31 | MHC.PC.OV ---
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: No Accompanied by: Self / Same As Patient Allergies evolocumab [From Repatha SureClick] Allergy (Intermediate, Verified 06/04/24 12:47) Hives doxycycline Allergy (Mild, Verified 06/04/24 12:47) Vomiting levetiracetam [From Keppra] Allergy (Mild, Verified 06/04/24 12:47) Vomiting amoxicillin Allergy (Unknown, Verified 06/04/24 12:47) rash Penicillins Allergy (Unknown, Verified 06/04/24 12:47) rash prednisone Allergy (Unknown, Verified 06/04/24 12:47) rash ceftriaxone [From Rocephin] Allergy (Verified 06/04/24 12:47) Rash milk Allergy (Verified 06/04/24 12:47) Unknown omeprazole Adverse Reaction (Unknown, Verified 06/04/24 12:47) worsening heartburn ranitidine Adverse Reaction (Unknown, Verified 06/04/24 12:47) worsening heartburn, abdominal pain (ONLY to generic) Medication List - Last Reconciled 06/04/24 by Jimmy Awan MD albuterol sulfate 90 mcg/actuation 2 puffs inhalation Q6H PRN 30 days albuterol sulfate 2.5 mg (3 mL) inhalation QID PRN atorvastatin 80 mg PO BEDTIME 90 days bempedoic acid (Nexletol) 180 mg PO DAILY blood sugar diagnostic (FreeStyle Lite Strips) As directed- to test blood sugar TID cholecalciferol (vitamin D3) 50 mcg PO DAILY 90 days clopidogrel 75 mg PO DAILY 90 days ezetimibe 10 mg PO DAILY Farxiga (dapagliflozin propanediol) 10 mg PO QAM 90 days NS glyburide 5 mg PO DAILY 90 days lancets (FreeStyle Lancets) As directed once a day latanoprost 0.005% 1 drp ophthalmic (eye) BEDTIME loratadine 10 mg PO DAILY PRN 90 days NS metoprolol succinate ER 50 mg PO DAILY nitroglycerin mg sublingual ondansetron 4 mg PO Q8H PRN 15 days pantoprazole 40 mg PO DAILY sucralfate 1 g PO BEDTIME 30 days triamcinolone acetonide 0.1% 1 appl topical BID Tobacco use date assessed: 06/04/24 Fall risk assessment: No Falls in past year Last assessed Fall Risk: 06/04/24 Dental Screening Dental Screen Date: 06/04/24 Did you have a dental visit in the last 12 months?: No Did you have a dental problem in the last 6 months where you did not have access to dental care?: No Was dental information given to patient?: No HPI 3mth f/u - see comments HPI Details Patient comes in today for her follow up visit States that she currently feels okay She denies any headaches or dizziness Denies any chest pains, no increased SOB No nausea/vomiting, no abdominal pain No change in bowel habits noted She had her follow up labs done about 3 weeks ago - to discuss her results [facility] Medical History Chronic kidney disease, stage 4 (severe) Chronic kidney disease, stage III (moderate) Atrophic vaginitis Orbital fracture Upper GI bleeding Hearing impairment Seizure Recurrent urinary tract infection Overweight (BMI 25.0-29.9) Vitamin D deficiency Allergic rhinitis Meralgia paresthetica of right side Anemia GERD without esophagitis Asthma Hyperkalemia Diabetic polyneuropathy associated with type 2 diabetes mellitus Peripheral vascular disease Pure hypercholesterolemia Benign essential hypertension Carotid atherosclerosis Coronary artery disease (~06/09/21) Type 2 diabetes mellitus with diabetic polyneuropathy Surgical History Hx of colonoscopy History of endoscopy S/P CABG x 4 (~06/09/21) History of cardiac catheterization (~12/2023) History of left-sided carotid endarterectomy S/P LASIK surgery History of right-sided carotid endarterectomy History of laparoscopic cholecystectomy Family History Father CVD (cardiovascular disease) Mother Stroke Brother CVD (cardiovascular disease) Esophageal cancer Social History Household Members: Children Housing: House Are you a primary nurse wound care to a significant other at home: No Do you presently have visiting nurse or other home services: No Alcohol intake: never Comment: cardiac Patient Tobacco Use Status: Former Tobacco user Tobacco use type: Cigarette e-Cigarette/Vaping Use: Never Used Second Hand Smoke Exposure: No Advance Directives Date on File: 01/11/22 service: No Current occupational status: retired 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 1. Little interest or pleasure in doing things: not at all 2. Feeling down, depressed, or hopeless: not at all 3. Trouble falling or staying asleep, or sleeping too much: not at all 4. Feeling tired or having little energy: not at all 5. Poor appetite or overeating: not at all 6. Feeling bad about yourself - or that you are a failure or have let yourself or your family down: not at all 7. Trouble concentrating on things, such as reading the newspaper or watching television: not at all 8. Moving or speaking so slowly that other people could have noticed. Or the opposite - being so fidgety or restless that you have been moving around a lot more than usual: not at all 9. Thoughts that you would be better off or of hurting yourself in some way: not at all Total score: 0 Depression Screening Interpretation: Negative Depression Screening Done: Yes 80649 - PHQ-9 Billing: Yes Source: Developed by Drs. Aquiles Alford, Yohana Coto, Jay Jay Metz and colleagues, with an educational yessi from [employer]. Thrive Questionnaire Date Thrive assessed: 06/04/24 I am a: Patient What is your living situation today?: I have a steady place to live Within the past 12 months, did the food you bought not last and you didn't have the money to get more?: Never true Within the past 12 months, did you worry whether your food would run out before you got money to buy more?: Never true Do you have trouble paying for medicines?: No Do you have trouble getting transportation to medical appointments?: No Do you have trouble paying your heating and electricity bill?: No Do you have trouble taking care of your child, family member or friend?: No Do you have trouble with day-to-day activities such as bathing, preparing meals, shopping, managing finances, etc.?: No Are you currently unemployed and looking for a job?: No Are you interested in more education?: No Please select the resources that you would like help with: None Currently or been in a relationship where the following occur: No concerns reported THRIVE Score: 0 AUDIT C Alcohol Use Questionnaire (AUDIT-C) 1. How often do you have a drink containing alcohol?: Never 3. How often do you have six or more drinks on one occasion?: Never Total Score: 0 Score Reviewed/Action Taken: Yes GALILEA-7 AMB Questionnaire GALILEA-7 Date GALILEA - 7 assessed: 06/04/24 Feeling nervous, anxious, or on edge: 0 = Not at all Not being able to stop or control worryin = Not at all Worrying too much about different things: 0 = Not at all Trouble relaxin = Not at all Being so restless that it is hard to sit still: 0 = Not at all Becoming easily annoyed or irritable: 0 = Not at all Feeling afraid as if something awful might happen: 0 = Not at all Total GALILEA-7 score (0-4 normal; 5-9 mild; 10-14 moderate; 15-21 severe): 0 Source: Developed by Drs. Aquiles Alford, Yohana Coto, Jay Jay Metz and colleagues, with an educational yessi from [employer]. Review of Systems Const Denies chills, Denies fatigue, Denies fever(s) and Denies headache(s) ENT Denies dysphagia, Denies dizziness, Denies otalgia, Denies headache(s), Reports hearing loss, Denies neck pain, Denies odynophagia and Denies sore throat Card Denies chest pain, Denies palpitations and Reports dyspnea on exertion (mild) Resp Denies cough, Reports dyspnea on exertion (mild) and Denies wheezing GI Denies abdominal pain, Denies constipation, Denies dysphagia, Denies heartburn, Denies diarrhea, Denies nausea, Denies odynophagia and Denies vomiting Denies difficulty voiding, Denies nocturia, Denies dysuria (but reports (+) mild burning sensation at times) and Reports urinary urgency Musc Denies back pain and Denies neck pain Skin/Breast Denies rash Neuro Denies dizziness and Denies headache(s) Endo Denies fatigue and Denies palpitations Aller/Immun Denies wheezing Physical exam (Primary Care) Vital Signs: Last Vital Signs Pulse 58 06/04/24 12:31 BP 110/76 06/04/24 12:31 Pulse Ox 95 06/04/24 12:31 Oxygen Delivery Method Room Air 06/04/24 12:31 BMI result Body Mass Index 29.9 Tobacco/Smoking Status: Tobacco use Status Tobacco use date assessed 06/04/24 06/04/24 12:33 Patient Tobacco Use Status Former Tobacco user 06/04/24 12:33 Tobacco use type Cigarette 06/04/24 12:33 e-Cigarette/Vaping Use Never Used 06/04/24 12:33 PHQ-9: PHQ-9 Score PHQ-9: Total score 0 06/04/24 12:33 Depression Screening Interpretation: Negative Thrive Assessment: Date of Thrive Assessment Date Thrive assessed 06/04/24 06/04/24 12:33 Currently or been in a relationship where the following occur: No concerns reported Const General: no acute distress and alert HENMT Ears: TM's normal bilaterally and EAC's normal Throat: Yes posterior oropharynx normal and Yes tonsils normal (no TP congestion noted) Neck Neck: Yes no lymphadenopathy and Yes supple Thyroid: Thyroid normal Resp Auscultation: clear to auscultation bilaterally, no rales and no wheezes Cardio Rate: regular rate Rhythm: regular rhythm Heart sounds: no murmurs GI Palpation (GI): Soft to palpation and nontender Auscultation: normal bowel sounds General: Yes no CVA tenderness Back/Spine/Pelvis Back: no CVA tenderness Thoracic/Lumbar Spine: No lumbar spinal tenderness Skin Rashes: no rashes Extrem General: Yes no clubbing, cyanosis or edema Office Procedures Flu Questionnaire Does the patient have a severe egg allergy?: No Immunizations Fluarix Triv [id number] (PF) 45 mcg (15 mcg x 3)/0.5 mL IM syringe Performing Provider: Jimmy Awan MD Performing Location[place] [facility] Documented (not given) by: HARJIT Mcclure on 06/04/24 12:34 Reason Not Given: Received Previously Results Reviewed Results Reviewed: Laboratory Tests 05/13/24 10:00 WBC 6.2 Hgb 11.5 L Hct 35.7 L Plt Count 298 Sodium 144 Potassium 4.2 Creatinine 1.66 H Estimated GFR 30 Fasting Glucose 175 H Hemoglobin A1c % 7.9 H Calcium 8.8 AST 16 ALT 12 Triglycerides 82 Cholesterol 117 LDL Cholesterol, Calc 63 HDL Cholesterol 38 L Vitamin B12 622 25-OH Vitamin D Total 54.9 TSH 2.33 Ur Specific [place]son 1.020 Urine Protein Trace Urine Glucose (UA) 500 H Urine Blood Negative Urine Nitrite Positive H Ur Leukocyte Esterase Moderate (2+) H Microalb/Creat Ratio 13.3 Coding Level of Care Code Est Pt Level 4 (58069) Complex EM visit Add On G2211 Diagnoses Coronary artery disease involving [place] coronary artery of [place] heart without angina pectoris I25.10 Coronary Disease-Associated Artery/Lesion type: [place] artery [place] vs. transplanted heart: [place] heart Associated angina: without angina Atherosclerosis of left carotid artery I65.22 Laterality: left Peripheral vascular disease I73.9 Pure hypercholesterolemia E78.00 Benign essential hypertension I10 Type 2 diabetes mellitus with diabetic polyneuropathy, without long-term current use of insulin E11.42 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 nursing home insulin use: without nursing home use Diabetic polyneuropathy associated with type 2 diabetes mellitus E11.42 Chronic kidney disease, stage 4 (severe) N18.4 Anemia, unspecified type D64.9 Anemia type: unspecified type Moderate persistent asthma without complication J45.40 Asthma severity: moderate Asthma persistence: persistent Asthma complication type: uncomplicated Allergic rhinitis, unspecified seasonality, unspecified trigger J30.9 Allergic rhinitis trigger: unspecified Allergic rhinitis seasonality: unspecified Vitamin D deficiency E55.9 Seizure R56.9 Overweight (BMI 25.0-29.9) E66.3 Assessment & Plan Assessment & Plan (1) Coronary artery disease: Onset Date: ~06/09/21 Comment: S/P stenting of ostial LAD; S/P CABG x 4 (RODRIGUEZ-mid LAD, SVG-PLV, left radial artery-OM, SVG-diag) on 06/09/21 Code(s): I25.10 - Atherosclerotic heart disease of [place] coronary artery without angina pectoris Category: Medical Qualifiers: Coronary Disease-Associated Artery/Lesion type: [place] artery [place] vs. transplanted heart: [place] heart Associated angina: without angina Qualified Code(s): I25.10 - Atherosclerotic heart disease of [place] coronary artery without angina pectoris Plan: S/P CABG x 4 in May 2021 She reportedly had an angiogram/cardiac cath done at [facility] a few months ago and was reportedly advised that she has some defect/blockage noted but they are not able to do any intervention on this and that she should just continue with her present management Patient currently remains mostly asymptomatic from a cardiac standpoint Continue Metoprolol ER 50 mg QD and Clopidogrel 75 mg QD; Aspirin 81 mg QD was previously discontinued due to her upper GI bleeding Patient also has NTG 0.4 mg tablets to take SL PRN for chest pains Follow up with cardiology (Dr. Alba) as scheduled (2) Carotid atherosclerosis: Comment: S/P left carotid revascularization and endarterectomy in 2018 Code(s): I65.29 - Occlusion and stenosis of unspecified carotid artery Category: Medical Qualifiers: Laterality: left Qualified Code(s): I65.22 - Occlusion and stenosis of left carotid artery Plan: Continue Clopidogrel 75 mg QD She had a repeat carotid US done a few months ago that reportedly came out stable with no significant disease progression Follow up with vascular surgery (Dr. Jesus) as scheduled (3) Peripheral vascular disease: Code(s): I73.9 - Peripheral vascular disease, unspecified Category: Medical Plan: Follow up with vascular surgery as scheduled (4) Pure hypercholesterolemia: Code(s): E78.00 - Pure hypercholesterolemia, unspecified Category: Medical Plan: Results of her labs done a few weeks ago reviewed and discussed with patient Reinforced low cholesterol diet Continue Atorvastatin 80 mg QD and Ezetimibe 10 mg QD Will recheck her labs and fasting lipids in 3 months for follow up (5) Benign essential hypertension: Code(s): I10 - Essential (primary) hypertension Category: Medical Plan: Reinforced low-sodium diet - goal is systolic BP of at least 120 to 130 mm or less due to her comorbidities Continue Amlodipine 5 mg QD and Metoprolol ER 50 mg QD; Losartan was previously discontinued due to hyperkalemia (6) Type 2 diabetes mellitus with diabetic polyneuropathy: Code(s): E11.42 - Type 2 diabetes mellitus with diabetic polyneuropathy Category: Medical Qualifiers: 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 nursing home insulin use: without nursing home use Qualified Code(s): E11.42 - Type 2 diabetes mellitus with diabetic polyneuropathy Plan: Her HgbA1c was at 7.9% on her recent labs (this was at 7.8% a few months ago) - goal is < 7.0% Reinforced diabetic diet She was taken OFF Metformin a few months ago due to her declining renal function and is currently on Farxiga 10 mg QD and Glyburide 5 mg QD Will try increasing now her Glyburide to 5 mg in AM and 2.5 mg in PM We also referred her to a press operator apprentice to help advise her on how to navigate her diet earlier this year (7) Diabetic polyneuropathy associated with type 2 diabetes mellitus: Code(s): E11.42 - Type 2 diabetes mellitus with diabetic polyneuropathy Category: Medical Plan: Continue Oxycodone-Acetaminophen 5-325 mg 2 to 3 times a day ONLY NEEDED for severe pain Will consider starting on Gabapentin if symptoms progress or worsen (8) Chronic kidney disease, stage 4 (severe): Code(s): N18.4 - Chronic kidney disease, stage 4 (severe) Category: Medical Plan: Her serum creatinine and GFR appears to have stabilized lately on her recent labs Follow up with nephrology as scheduled Will continue to monitor GFR and renal function regularly (9) Anemia: Code(s): D64.9 - Anemia, unspecified Category: Medical Qualifiers: Anemia type: unspecified type Qualified Code(s): D64.9 - Anemia, unspecified Plan: Stable - was most likely multifactorial, including due to upper GI bleeding last year that required Hemospray and 2 units of PRBC Will continue to monitor her CBC regularly Follow up with hematology (Dr. Vazquez) as scheduled (10) Asthma: Code(s): J45.909 - Unspecified asthma, uncomplicated Category: Medical Qualifiers: Asthma severity: moderate Asthma persistence: persistent Asthma complication type: uncomplicated Qualified Code(s): J45.40 - Moderate persistent asthma, uncomplicated Plan: Stable Continue Albuterol HFA 2 puffs 4 times a day as needed Patient also has a nebulizer that she uses (with Albuterol solution 0.083%) up to 4 times a day when needed (11) Allergic rhinitis: Code(s): J30.9 - Allergic rhinitis, unspecified Category: Medical Qualifiers: Allergic rhinitis trigger: unspecified Allergic rhinitis seasonality: unspecified Qualified Code(s): J30.9 - Allergic rhinitis, unspecified Plan: Continue Loratadine 10 mg QD PRN (12) Vitamin D deficiency: Code(s): E55.9 - Vitamin D deficiency, unspecified Category: Medical Plan: Continue Vitamin D3 1000 units QD (13) Seizure: Code(s): R56.9 - Unspecified convulsions Category: Medical Plan: This was most likely due to (adverse reaction from) Doxycycline; she has had no recurrence of seizures since her discharge from [facility] last year CTA of the head/neck and MRI of the brain done last year came out negative EEG done showed mild to moderate background slowing with occasional triphasic waves but no epileptiform activity was noted Neurology (Dr. Hernandez) thinks that patient actually had a TIA instead of a seizure (14) Overweight (BMI 25.0-29.9): Code(s): E66.3 - Overweight Category: Medical Plan: Reinforced diet/weight loss; exercise is unrealistic given patient's multiple comorbidities Plan Follow up in 3 months Orders: Orders Complete Blood Count Auto Diff 3 Months D64.9 - Anemia, unspecified Lipid Panel 3 Months E78.00 - Pure hypercholesterolemia, unspecified UA CC w/rflx Micro + Cult 3 Months R30.0 - Dysuria Microalbumin, Random (w Creat) 3 Months E11.9 - Type 2 diabetes mellitus without complications Influenza [id number] Immunization Today Z23 - Encounter for immunization Comprehensive [place]. Panel Fast 3 Months E78.00 - Pure hypercholesterolemia, unspecified TSH reflex Free T4 3 Months E78.00 - Pure hypercholesterolemia, unspecified Vitamin D 25-OH Total 3 Months E55.9 - Vitamin D deficiency, unspecified Vitamin B12 and Folate 3 Months E53.8 - Deficiency of other specified B group vitamins Hemoglobin A1c 3 Months E11.9 - Type 2 diabetes mellitus without complications Medications: Changed From glyburide 5 mg PO DAILY 90 days 90 tabs 1RF To glyburide 5 mg in AM and 2.5 mg in PM orally BID 90 days 135 tabs 1RF
== END 2024-06-04 13:14 | disposition home or self-care (01) ==
PROVIDERS: PCP Internal Medicine; Visit Provider Internal Medicine
DX: I12.9 Hypertensive chronic kidney disease with stage 1 through stage 4 chronic kidney disease, or unspecified chronic kidney disease (principal); I73.9 Peripheral vascular disease, unspecified; E11.42 Type 2 diabetes mellitus with diabetic polyneuropathy; N18.4 Chronic kidney disease, stage 4 (severe); R56.9 Unspecified convulsions; I25.10 Atherosclerotic heart disease of native coronary artery without angina pectoris; I65.22 Occlusion and stenosis of left carotid artery; E78.00 Pure hypercholesterolemia, unspecified; J45.40 Moderate persistent asthma, uncomplicated; D64.9 Anemia, unspecified; J30.9 Allergic rhinitis, unspecified; E55.9 Vitamin D deficiency, unspecified

== ENCOUNTER → 2024-06-04 12:13 | Outpatient (BNVA) | payer MEDICARE, OTHER, SELFPAY | PROVIDERS: PCP Internal Medicine; Visit Provider Internal Medicine | DX: I25.10 Atherosclerotic heart disease of native coronary artery without angina pectoris (principal); I65.22 Occlusion and stenosis of left carotid artery; I73.9 Peripheral vascular disease, unspecified; E78.00 Pure hypercholesterolemia, unspecified; E11.42 Type 2 diabetes mellitus with diabetic polyneuropathy; I12.9 Hypertensive chronic kidney disease with stage 1 through stage 4 chronic kidney disease, or unspecified chronic kidney disease; E11.22 Type 2 diabetes mellitus with diabetic chronic kidney disease; N18.4 Chronic kidney disease, stage 4 (severe); D64.9 Anemia, unspecified; J45.40 Moderate persistent asthma, uncomplicated; J30.9 Allergic rhinitis, unspecified; E55.9 Vitamin D deficiency, unspecified; R56.9 Unspecified convulsions; E66.3 Overweight; Z68.29 Body mass index [BMI] 29.0-29.9, adult; Z71.3 Dietary counseling and surveillance | CPT/HCPCS: 90471; 96127; 99212 ==

== ENCOUNTER 2024-09-09 09:36 | Outpatient (REF) | payer MEDICARE, OTHER, SELFPAY ==
[2024-09-09 10:21] LABS: MANUAL DIFF FLAG NO
[2024-09-09 10:28] LABS: Basophils Percent Auto 0.7 % (0-2); Eosinophils Absolute Auto 0.2 X10*3/uL (0.0-0.4); Eosinophils Percent Auto 2.9 % (0-4); Hematocrit 37.3 % (37.0-47.0); Hemoglobin 11.7 g/dl (12.0-16.0); Imm Gran Abs Auto 0.01 X10*3/uL (0.00-0.03); Imm Gran Pct Auto 0.2 % (0.0-0.4); Lymphocytes Absolute Auto 0.8 X10*3/uL (1.2-4.9); Lymphocytes Percent Auto 14.1 % (20-40); Mean Corpuscular HGB Conc 31.4 g/dl (31.0-35.0); Mean Corpuscular Hemoglobin 26.8 pg (27.0-33.0); Mean Corpuscular Volume 85.6 fL (80.0-98.0); Mean Platelet Volume 8.6 fL (9.4-12.3); Monocytes Absolute Auto 0.5 X10*3/uL (0.1-1.2); Monocytes Percent Auto 8.2 % (2-11); Neutrophils Percent Auto 73.9 % (45-73); Platelet Count 310 X10*3/uL (160-400); Red Blood Count 4.36 X10*6/uL (4.20-5.50); Red Cell Distribution Width 13.7 % (11.0-16.0); White Blood Count 5.5 X10*3/uL (4.8-10.8)
--- OUTSIDE RECORDS SUMMARY | 2024-09-09 10:33 | XMS_ITS | Data Portability ---
Author Organization [facility] [employer], [employer] Address [address] [place] [address] Care Team Providers Care Facility Coordinator Name Role Phone GAURAV ROMAN Referring Provider [phone] LILIANA GREEN OTHER Assessment Encounter Date Assessment Date Assessment LastModified by Organization Details LastModified Time 10/13/2021 10/13/2021 IMPRESSION: Two complex partial seizures July 16, 2021, in the middle of recovery from community-acquir ed pneumonia, (feeling 90% better) on doxycycline, three generalized seizures July 23, 2021 still on doxycycline, also on Keppra, no seizures since, off of doxycycline, which had caused nausea, also off of Keppra, because of nausea that persisted for days after stopping doxycycline, but which stopped promptly after stopping Keppra. Daughter reporting that the patient (who does not remember) reported that she could not see at the onset of the July 23, 2021 event, and did not report that she could see again for 6 hours. SEIZURE Residual systemic illness and doxycycline both may have provoked seizure. I cannot tell which played a large role. Neither brain MRI nor EEG reflected abnormalities specific for increased risk of seizure. There was apparent side effects to Keppra of nausea separate from the nausea caused by doxycycline. She does not want to go on another antiseizure medication. I think this is quite reasonable given that we have plausible evidence of provoking agents. TIA TIA during the July 23, 2021 event is likely given the evidence of not being able to see. 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 No such blockage was seen on CT angiogram just a narrowing of one vertebral artery. However, that blocking may have been transient. There has not been a 30-day heart monitor for atrial fibrillation as a cause of an embolus that might have caused such blocking. This is standard of care and I discussed this with the patient. She is agreeable to going this direction and understands to discuss this with PCP as well as with cardiology with whom she has an appointment in the upcoming weeks. Otherwise, she is already on clopidogrel and atorvastatin 80 mg, good secondary stroke preventative agents. PLAN Jermain Gonzales October 13, 2021 Please follow-up with primary care and/or cardiology, Dr. Green for consideration of 30-day heart monitor in the context of your episode of ~6 hours of not being able to see, with three intermixed seizures. Please do not drive for 6 months. Afterwards, please do not drive if you are feeling sick or unwell more generally, as I cannot say how much you are feeling unwell in June and July 2021 was part of the trigger for your seizures. Call 911 for any sudden changes in neurological status as you have already done in June and July. Otherwise: Follow-up with me as needed for neurological issues. [email or web address] Not available 10/13/2021 17:41:22 Plan of Treatment Reminders Order Date Submit Date Provider Last Modified By Organization Details Last Modified Time Details Appointments None record ed. Lab None record ed. Referral None record ed. Procedures None record ed. Surgeries None record ed. Imaging None record ed. Medication Orders None record ed. Patient TargetsNo targets recorded. Patient InstructionsNo instructions recorded. Reason for Referral None Reported. Results Created Date Observation Date Name Description Value Unit Range Abnormal Flag Note LastModifiedBy Organization Detail LastModifiedTime 10/13/19 22 10/13/2021 CT, head, w/o contr ast No observ ation record ed. [address] [facility] ([facility]) [address] [place], [address], 10/17/2021 14:29:22 Result Notes None recorded. Procedures Surgical History Date Name Laterality Status Provider Name and Address Organization Details Recorded Time 10/13/2021 DATA REVIEW completed Antony Hernandez MD [address] [place] [address] [place], [address], [facility] Neurology [facility] 10/13/2021 17:40:07 Imaging Results Imaging Date Name Status LastModified by Organiz ation Details LastModified Time 10/13/2021 CT, head, w/o contrast completed [address] [facility] ([facility]) [address], [place], [address], 10/17/2021 14:29:22 Procedure Notes None recorded. Medical Equipment None Reported. Allergies Allergen ID Allergen Name Allergen Category Reaction Reaction Severity Criticality Documentation Date Start Date Code Code System Note Provider Name and Address Organization Details Recorded Time 1213 Product containin g penicilli n and antibioti c (product) medicatio n Not available Not available Not available 10/13/2021 35471 05 SNOMED [facility] 2 11:19:23 1214 doxycycli ne Not available Not available Not available Not available 10/13/2021 3640 RxNorm [place] [facility] [facility] 2 11:22:18 1215 Keppra medicatio n Not available Not available Not available 10/13/2021 19394 7 RxNorm [facility] [employer] [facility] 2 11:22:28 Medications Name Sig Start Date Stop Date Status Note LastModified by Organization Details LastModified Time Santyl 250 unit/gram topical ointment APPLY TOPICALLY TO THE AFFECTED AREA DAILY active Not Available Not Available N ot Available latanoprost 0.005 % eye drops INSTILL 1 DROP IN BOTH EYES EVERY NIGHT active Not Available Not Available Not Available atorvastatin 80 mg tablet TAKE 1 TABLET BY MOUTH EVERY DAY active Not Available Not Available No t Available albuterol sulfate 2.5 mg/3 mL (0.083 %) solution for nebulization INHALE 1 AMPULE VIA NEBULIZER FOUR TIMES DAILY NEEDED FOR SHORTNESS OF BREATH active Not Available Not Available No t Available nitroglyceri n 0.3 mg sublingual tablet DISSOLVE 1 TABLET UNDER THE TONGUE EVERY 5 MINUTES NEEDED FOR CHEST PAIN active Not Available Not Available N ot Available glyburide 2.5 mg tablet TAKE 1 TABLET BY MOUTH TWICE DAILY active Not Available Not Available No t Available metoprolol succinate ER 50 mg tablet,exten ded release 24 hr TAKE 1 TABLET BY MOUTH DAILY active Not Available Not Available Not Available Nystop 100,000 unit/gram topical powder APPLY TO AFFECTED AREA TOPICALLY TWICE A DAY active Not Available Not Available Not Available clopidogrel 75 mg tablet TAKE 1 TABLET BY MOUTH DAILY active Not Available Not Available Not Available amlodipine 5 mg tablet TAKE 1 TABLET BY MOUTH DAILY active Not Available Not Available Not Available sulfamethoxa zole 800 mg-trimethop rim 160 mg tablet TAKE 1 TABLET BY MOUTH TWICE DAILY FOR 10 DAYS active Not Available Not Available No t Available doxycycline monohydrate 100 mg tablet TAKE 1 TABLET BY MOUTH TWICE DAILY FOR 7 DAYS active Not Available Not Available No t Available isosorbide mononitrate ER 60 mg tablet,exten ded release 24 hr TAKE 1 TABLET BY MOUTH 2 TIMES EVERY DAY active Not Available Not Available No t Available famotidine 20 mg tablet TAKE 1 TABLET BY MOUTH TWICE DAILY active Not Available Not Available No t Available metocloprami de 5 mg tablet TAKE 1 TABLET BY MOUTH FOUR TIMES DAILY FOR 7 DAYS. STOP ZOFRAN active Not Available Not Available Not Available amlodipine 10 mg tablet TAKE 1 TABLET BY MOUTH EVERY DAY active Not Available Not Available No t Available torsemide 5 mg tablet TAKE 1 TABLET BY MOUTH DAILY active Not Available Not Available Not Available doxycycline monohydrate 100 mg capsule TAKE 1 CAPSULE BY MOUTH EVERY 12 HOURS FOR 5 DAYS active Not Available Not Available N ot Available metformin 1,000 mg tablet TAKE 1 TABLET BY MOUTH TWICE DAILY active Not Available Not Available No t Available nitrofuranto in macrocrystal 100 mg capsule TAKE 1 CAPSULE BY MOUTH DAILY FOR UTI OR PROPHYLAXIS active Not Available Not Available Not Available losartan 25 mg tablet TAKE 1 TABLET BY MOUTH DAILY active Not Available Not Available Not Available levetiraceta m 750 mg tablet TAKE 1 TABLET BY MOUTH TWICE DAILY active Not Available Not Available No t Available triamcinolon e acetonide 0.1 % lotion APPLY TOPICALLY TO THE AFFECTED AREA TWICE DAILY active Not Available Not Available No t Available albuterol sulfate HFA 90 mcg/actuatio n aerosol inhaler INHALE 2 PUFFS BY MOUTH EVERY 6 HOURS NEEDED FOR SHORTNESS OF BREATH OR WHEEZING active Not Available Not Available Not Available ondansetron 4 mg disintegrati ng tablet DISSOLVE 1 TABLET ON THE TONGUE EVERY 8 HOURS FOR 15 DAYS NEEDED FOR NAUSEA OR VOMITING active Not Available Not Available No t Available loratadine 10 mg tablet TAKE 1 TABLET BY MOUTH EVERY DAY active Not Available Not Available No t Available ezetimibe 10 mg tablet TAKE 1 TABLET BY MOUTH ONCE DAILY active Not Available Not Available No t Available FreeStyle Lite Strips USE 1 STRIP THREE TIMES DAILY TO TEST BLOOD SUGAR active Not Available Not Available No t Available FeroSul 325 mg (65 mg iron) tablet TAKE 1 TABLET BY MOUTH ONCE A DAY active Not Available Not Available No t Available Vitals Date Recorded Body height Body mass index (BMI) Body weight Respiratory rate Provider Name and Address Organization Details Last Updated DateTime 10/13/2021 157.48 cm 27.1 kg/m2 00207.67 g 12 /min [facility] 10/13/2021 11:18:56 Social History Question Answer Notes LastModified by Organizat ion Details LastModified Time Tobacco Smoking Status Former Smoker [facility] 10/13/2021 11:24:52 What Is Your Level Of Alcohol Consumption? None Information not available 10/13/2021 What Is Your Level Of Caffeine Consumption? Occasional Information not available 10/13/2021 What Is The Highest Grade Or Level Of School You Have Completed Or The Highest Degree You Have Received? [id number] Information not available 10/13/2021 Which Of Your Hands Is Dominant? Right Information not available 10/13/2021 What Is Your Relationship Status? Information not available 10/13/2021 Sex: Unknown Functional Status None recorded. Mental Status None recorded. Family History Relationship Description Onset Age of this Age Resolved Age Notes LastModified by Organization Details LastModified Time Maternal Aunt Dementia [email or web address] No t available 10/13/2021 11:22:55 Maternal Aunt Disorder of thyroid gland [email or web address] Not available 11:24:01 Maternal Grandfather Type 2 diabetes mellitus [email or web address] Not available 11:23:19 Paternal Grandmother Type 2 diabetes mellitus [email or web address] Not available 11:23:19 Mother Heart disease [email or web address] Not available 11:23:37 Mother Cerebrovascu lar accident [email or web address] Not available 10/13/2021 11:23:46 Father Heart disease [email or web address] Not available 11:23:37 Medical History Condition Response Heartburn, acid reflux, GERD Y Diabetes Y High Cholesterol or Hyperlipidemia Y COPD or emphysema Y Asthma Y Gynecological HistoryNo gynecological history recorded. Obstetrics History GPAL:G 0 P 0 0 0 0 Past Encounters Encounter ID Performer Location Encounter Start Date Encounter Closed Date Diagnosis/Indication Diagnosis SNOMED-CT Code Diagnosis ICD10 Code Diagnosis Note [id number] Antony Hernandez MD [facility] [address] [place] [address] [place] [address] 10/13/2021 10:47:12 10/17/2021 07:47:44 Complex partial seizure with impairment of consciousness 1982601 G40.209 Generalize d-onset seizures 1464393 G40.309 Acute cere brovascular insufficiency 76680444 I67.81 Health Concerns Section Related Observation LastModified by Organization Detai ls LastModified Time None Recorded Concern Status LastModified by Organization Details LastModified Time None Recorded Advance Directives Directive None Recorded Payers Encounter Date Sequence Insurance Name Policy Number Policy Jamil Covered Member ID Jamil Member ID Guarantor Name 10/13/2021 1 [place]ICARE [place]: [employer] Jermain Gonzales [id number] Jermain Gonzales 10/13/2021 2 [facility] [id number] Jermain Gonzales [id number] Jermain Gonzales Notes Date Note Type Note Provider Name and Address Organization Details Recorded Time 10/13/2021 text/html She presents for initial neurology consultation for 2 days in late June and early July each with multiple seizures, during a time while she was on doxycycline for not feeling well in my chest that I think was pneumonia although they did not tell me that for certain. She is accompanied by Clemencia Nuñez, her daughter, who is also a patient of mine, and who provides the bulk of the history.In the middle of June, she was not feeling well in her chest. At baseline she has asthma that gives her breathing problems but this felt worse. Primary care started doxycycline. The patient feels that she had pneumonia although she does not remember being told that for certain. In any case, after a while, the unwell feeling in her chest improved about 90%. She was continuing on doxycycline although it caused side effects of nausea. On July 16 she had seizures. She does not remember any of the events. Her daughter relates that the patient was sitting and then got up and looked around as if in a fog and her head started twitching to the right. She was looking at the wall on the right and talking but not making sense. This lasted about a minute. 911 was called and emergency responders came quickly. The patient had another similar event while they were there. She was taken to the hospital and discharged on the additional medication of Keppra. A week later, July 23, she again had several seizures which she again does not remember. Her daughter describes that it began with her saying I do not feel good and starting mumbling, but at one point saying clearly I cannot see. About 15 minutes later while standing she fell and started shaking, the event lasting about 30 seconds. She was not injured. She started to come back and talk a bit when she had a similar event, starting while she was still on the floor, this one lasting a minute. A third similar event occurred 2 minutes later. After this, emergency workers arrived. She was able to talk a little to direct questioning and her daughter was able to help her up and stand up to pivot into the emergency workers wheelchair to bring her to the ambulance. She did not state that she was able to see again until 6 hours later. Per PCP note, she had a 5-day hospital stay with discharge stating presumptive diagnosis of doxycycline provoked seizure. Doxycycline was discontinued. Keppra was continued, however. The patient continued to have upset stomach and thought it was from Keppra and so stopped the Keppra. Her upset stomach resolved. She has had no subsequent events causing suspicion for seizure. Antony Hernandez MD [address] [place], [place] [address], [address], [facility] Neurology [facility] 10/13/2021 17:43:39 OBGyn Episode No OBEpisode recorded.
--- OUTSIDE RECORDS SUMMARY | 2024-09-09 10:33 | XMS_ITS | Clinical Summary ---
Author Organization [facility], Address [address] [place] [address] Phone Care Team Providers Care Nurse Emergency Room Name Role Phone Jimmy Awan MD Primary Care Provider [phone] Allergies Active Allergy Reactions Criticality Noted Date Comments Doxycycline 07/28/2021 Hydrocortisone Rash Medium 06/17/2021 Molds & Smuts Medium 06/17/2021 nasal congestion asthma flare up Penicillins Rash Low 06/17/2021 vomiting nausea Prednisone Rash Medium 06/17/2021 Medications acetaminophen (TYLENOL) 325 MG tablet Take 975 mg by mouth every 6 (six) hours if needed 1 Active albuterol (2.5 MG/3ML) 0.083% nebulizer solution Inhale 2.5 mg every 6 (six) hours if needed 1 Active aspirin 81 MG chewable tablet Chew 81 mg daily 06/17/20 2 1 Active atorvastatin (LIPITOR) 80 MG tablet Take 80 mg by mouth daily 1 Active cholecalciferol (VITAMIN D-3) 25 MCG (1000 UT) tablet Take 1,000 Units by mouth daily 1 Active clopidogrel (PLAVIX) 75 MG tablet Take 75 mg by mouth daily 1 Active collagenase (Santyl) ointment Apply 250 application topically daily 1 Active famotidine (PEPCID) 20 MG tablet Take 20 mg by mouth twice a day 1 Active glyBURIDE micronized (GLYNASE) 6 MG tablet Take 2.5 mg by mouth 2 (two) times a day with meals 1 Active latanoprost (XALATAN) 0.005 % ophthalmic solution Administer 1 drop into affected eye(s) daily 1 Active levETIRAcetam (KEPPRA) 750 MG tablet Take 750 mg by mouth twice a day Active metFORMIN (GLUCOPHAGE) 1000 MG tablet Take 1,000 mg by mouth 2 (two) times a day with meals 1 Active metoprolol succinate XL (TOPROL XL) 50 MG 24 hr tablet Take 50 mg by mouth daily 1 Active nitroglycerin (NITROSTAT) 0.[address] 0.3 mg under the tongue Active nystatin (MYCOSTATIN) powder Apply 1 application topically twice a day 1 Active ondansetron (ZOFRAN) 4 MG tablet Take 4 mg by mouth Active nitrofurantoin (MACRODANTIN) 100 MG capsule Take 100 mg by mouth daily 1 Active Active Problems Problem Noted Date Diagnosed Date Peripheral vascular disease 07/22/2021 Other and unspecified hyperlipidemia 07/22/2021 Essential hypertension 07/22/2021 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 without me ntion of complication, type II or unspecified type, not stated as uncontrolled 07/22/2021 Coronary arteriosclerosis 07/22/2021 Anemia 07/22/2021 Social History Tobacco Use Types Packs/Day Years Used Date Smoking Tobacco: Former Cigarettes Comments Unknown Sex and Gender Information Value Date Recorded Sex Assigned at Not on file Legal Sex Female 5:11 PM EST Gender Identity Not on file Sexual Orientation Not on file Plan of Treatment Health Maintenance Due Date Last Done Comments Pneumococcal Vaccine: 65+ Ye ars (1 of 1 - PCV) 12/30/2007 Diabetes: Hemoglobin A1C 07/22/2021 Diabetes: Ophthalmology Exam 07/22/2021 Diabetes: Pedal Pulse Checked 07/22/2021 Diabetes: Sensory Foot Exam 07/22/2021 Diabetes: Visual Foot Exam 07/22/2021 Influenza Vaccine (#1) 2024 Hepatitis B Vaccine Aged Out No longe r eligible based on patient's age to complete this topic Insurance MEDICARE [facility] Care Teams Nurse Emergency Room Relationship Specialty Start Date End Date Jimmy Awan MD [address] [place] [address] PCP - General Internal Medicine 07/28/21
--- OUTSIDE RECORDS SUMMARY | 2024-09-09 10:33 | XMS_ITS | Clinical Summary ---
Author Organization [facility] ity Address [address] [place] [address] Care Team Providers Care Siphon Operator Name Role Phone Jimmy Awan MD Primary Care Provider [phone] Allergies Active Allergy Reactions Criticality Noted Date Comments Doxycycline 08/01/2021 Hydrocortisone Rash 03/01/2022 Levetiracetam 08/01/2021 Milk Containing Products (Dairy) Mold 03/01/2022 Penicillins 10/28/2020 Prednisone 10/28/2020 Medications Medication Sig Dispensed Refills Start Date End Date Status bempedoic acid (Nexletol) 180 mg tablet Take 180 mg by mouth 1 (one) time each day. 04/18/2024 Active glyBURIDE (DIABETA) 5 mg tablet Take 1 tablet (5 mg total) by mouth 1 (one) time each day with breakfast. Active evolocumab (Repatha SureClick) 140 mg/mL pen injector injection Inject 1 mL (140 mg total) under the skin every 14 (fourteen) days. 03/12/2024 Active dapagliflozin propanediol (FARXIGA) 10 mg tablet Take 1 tablet (10 mg total) by mouth 1 (one) time each day. Active nitroglycerin (NITROSTAT) 0.[address] 1 tablet (0.3 mg total) under the tongue every 5 (five) minutes if needed. 11/09/2023 12/03/2024 Active atorvastatin (LIPITOR) 80 mg tablet Take 1 tablet (80 mg total) by mouth 1 (one) time each day. 08/24/2022 Active metoprolol succinate (TOPROL-XL) 50 mg 24 hr tablet Take 1 tablet (50 mg total) by mouth 1 (one) time each day. 03/14/2022 Active pantoprazole (PROTONIX) 40 mg EC tablet Take 1 tablet (40 mg total) by mouth 1 (one) time each day. Active sucralfate (CARAFATE) 1 gram tablet Take 1 tablet (1 g total) by mouth at bedtime. Active ondansetron (ZOFRAN) 4 mg tablet Take 1 tablet (4 mg total) by mouth 2 (two) times a day. Active loratadine (CLARITIN) 10 mg tablet Take 1 tablet (10 mg total) by mouth 1 (one) time each day. Active cholecalciferol (VITAMIN D-3) 25 mcg (1,000 unit) tablet Take by mouth. A ctive famotidine (PEPCID) 20 mg tablet Take 1 tablet (20 mg total) by mouth 2 (two) times a day. Active latanoprost (XALATAN) 0.005 % ophthalmic solution 1 Drop at bedtime. Active clopidogreL (PLAVIX) 75 mg tablet Take 1 tablet (75 mg total) by mouth 1 (one) time each day. Active albuterol HFA (PROAIR HFA ; PROVENTIL HFA ; VENTOLIN HFA) 90 mcg/actuation inhaler Inhale 2 puffs by mouth every 4 (four) hours if needed. 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 She reports that it is relatively short-lived and resolves with rest or nitroglycerin; given several of her statements during our conversation today, I sense that she may be under playing this in front of her daughter so as to not worry her. She also reports shortness of breath with exertion but states that it does resolve with the use of her rescue inhaler and thinks it is more related to her history of asthma; nevertheless, we must consider that this could be a symptom of underlying ischemia as well. We discussed updating an ischemic evaluation with a repeat nuclear stress test and the patient is readily willing to undergo this for further evaluation. We will also update an echocardiogram to ensure shortness of breath is not related to declining cardiac function or underlying valvular issue, though there is lower suspicion of this today as she appears euvolemic on exam and does not have any murmurs on exam. In the interim, we will have her continue with cardioprotective medical therapies including atorvastatin metoprolol, and Plavix; she states she was previously told not to take aspirin as well as Plavix due to her history of GI bleed. Of note, she previously stated that neurology ruled out a seizure disorder and she actually had a TIA. We do not have notes to support this and seizure disorder remains on her problem list. Patient advised to seek emergency medical attention by calling 911 if they were to develop severe dyspnea, chest pain that did not resolve with rest or nitroglycerin, or if they were to faint. Hypertension 10/28/2020 Overview (07/15/2024): Last Assessment & Plan: Pressure is well-controlled on current medical therapy; continue metoprolol. She is diabetic and is not currently on an ACEI or an ARB given her recent renal dysfunction. We do not have recent lab results on file for review; she reports that she had labs completed recently and we will try to obtain these from her PCP. Peripheral vascular disease 10/28/2020 Overview (07/15/2024): Last Assessment & Plan: Follows with Dr. Jesus at [facility] Hyperlipidemia 10/28/2020 Overview (07/15/2024): Last Assessment & Plan: The patient's history of coronary artery disease as well as diabetes, LDL goal is less than 55. Her most recent lipid panel from reveals an LDL of 80 which is above goal for this patient. She reports that she did have labs completed recently but is unsure of these results; we will attempt to obtain these for review. Would recommend that if LDL remains above 55, additional medical therapies are added such as with ezetimibe as she is already on maximum dosing of high intensity statin. Surgical History Surgery Date Site/Laterality Comments BLADDER SUSPENSION PROCEDURE: HISTORICAL BLADDER SUSPENSION OTHER SURGICAL HISTORY 02/06/2017 PROCEDURE: HISTORY OTHER; COMMENT: Left carotid endarterectomy with bovine patch OTHER SURGICAL HISTORY 12/26/2016 PROCEDURE: NUCLEAR STRESS WITH EXERCISE, REGADENOSON, OR DOBUTAMINE PER PROTOCOL CARDIAC CATHETERIZATION 06/10/2014 PROCEDURE: HISTORICAL CARDIAC CATH OTHER SURGICAL HISTORY 01/09/2014 PROCEDURE: HISTORY OTHER; COMMENT: R5 amputation, L2 amputation site debridement BYPASS GRAFT 09/10/2013 Left PROCEDURE: NV AMPUTATION TOE METATARSOPHALANGEAL JOINT; COMMENT: 2nd toe CARDIAC CATHETERIZATION 07/02/2013 PROCEDURE: HISTORICAL CARDIAC CATH OTHER SURGICAL HISTORY 02/18/2013 PROCEDURE: NV CORONARY ENDARTERCOMY OPEN ANY METHOD OTHER SURGICAL HISTORY 02/18/2013 PROCEDURE: NV BYPASS W/VEIN FEMORAL-FEMORAL OTHER SURGICAL HISTORY 07/31/2012 PROCEDURE: HISTORY OTHER; COMMENT: Right carotid endarterectomy with patch angioplasty reconstruction CARDIAC CATHETERIZATION 05/21/2012 PROCEDURE: HISTORICAL CARDIAC CATH CHOLECYSTECTOMY PROCEDURE: HISTORICAL CHOLECYSTECTOMY Medical History Medical History Date Comments Fall 03/01/2022 DX:Fall Hematemesis DX:Hematemesis Left orbit fracture ([facility]) DX :Left orbit fracture ([facility]) Upper GI bleed DX:Upper GI blee d Hemorrhagic shock ([facility]) DX:H emorrhagic shock ([facility]) Acute kidney injury superimp osed on CKD ([facility]) DX:Acute kidney injury super imposed on CKD ([facility]) Hyponatremia DX:Hyponatremia Delirium DX:Delirium UTI (urinary tract infection) DX :UTI (urinary tract infection) Anemia DX:Anemia Claudication ([facility]) DX:Claudi cation ([facility]) COPD (chronic obstructive pu lmonary disease) ([facility]) DX:COPD (chronic obstructive pulmonary disease) ([facility]) 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 ([facility]) DX:D iabetes mellitus ([facility]) GERD (gastroesophageal reflu x disease) DX:GERD (gastroesophageal re flux disease) Hard of hearing DX:Hard of heari ng Neck strain DX:Neck strain Obesity DX:Obesity PONV (postoperative nausea a nd vomiting) DX:PONV (postoperative nause a and vomiting) Toe ulcer (CMS/HCC) DX:Toe ulcer (HCC) Family History Medical History Relation Name Comments Other: heart disease Father Stroke Mother Relation Name Status Comments Father Mother Social History Tobacco Use Types Packs/Day Years Used Date Smoking Tobacco: Former Smokeless Tobacco: Never Alcohol Use Standard Drinks/Week Comments Yes 0 (1 standard drink = 0.6 oz pur e alcohol) Sex and Gender Information Value Date Recorded Sex Assigned at Not on file Gender Identity Not on file Sexual Orientation Not on file Obstetrics History Last Filed Vital Signs Vital Sign Reading Time Taken Comments Blood Pressure 117/55 04/03/2024 12:50 PM EDT R Arm Pulse 60 03/12/2024 1:45 PM EDT Temperature - - Respiratory Rate - - Oxygen Saturation - - Inhaled Oxygen Concentration - - Weight 72.6 kg (160 lb) 04/03/2024 12:50 PM EDT Height 157.5 cm (5' 2 ) 04/03/2024 12:50 PM EDT Body Mass Index 29.26 04/03/2024 12:50 PM EDT Plan of Treatment Upcoming Encounters Date Type Department Care Team (Late st Contact Info) Description 09/12/2024 10:40 AM EST Office Visit [facility] [address] [facility] [address] [place] [id number] Clemencia Aviles NP [address] [facility] [address] [place] [address] Health Maintenance Due Date Last Done Comments Diabetes: Annual GFR (Glomer ular Filtration Rate) 1942 COVID-19 Vaccine (#1) 12/30/1947 Pneumococcal Vaccine: 65+ Ye ars (1 of 2 - PCV) 1948 Diabetes: Annual Foot Exam 1952 Diabetes: Annual Retina Eye Exam 1952 DTaP,Tdap,and Td Vaccines (1 - Tdap) 1961 Zoster Vaccines (1 of 2) 1992 RSV Immunization Patients 60 + Years Old (1 - 1-dose 75+ series) 2017 Cholesterol Screening (Lipid Panel) 07/18/2022 Depression Screening 07/18/2022 Falls Risk Assessment 07/18/2022 Medicare Annual Wellness Visit 07/18/2022 Osteoporosis Screening (Bone Density Screening) 07/18/2022 Social Influencers of Health Screening 07/18/2022 Diabetes: Annual Urine Albumin-Creatinine Ratio (uACR) 07/27/2022 Diabetes: Blood Sugar Contro l Test (HGBA1C) 07/27/2022 Hypertension/CHF/CAD Annual BMP Blood Test 07/27/2022 Influenza Vaccine (#1) 2024 07/25/2021 HIB Vaccines Aged Out No longer eligi ble based on patient's age to complete this topic HPV Vaccines Aged Out No longer eligi ble based on patient's age to complete this topic Hepatitis A Vaccines Aged Out No long er eligible based on patient's age to complete this topic Hepatitis B Vaccines Aged Out No long er eligible based on patient's age to complete this topic IPV Vaccines Aged Out No longer eligi ble based on patient's age to complete this topic MMR Vaccines Aged Out No longer eligi ble based on patient's age to complete this topic Meningococcal ACWY Vaccine Aged Out N o longer eligible based on patient's age to complete this topic RSV Immunization Patients Un natividad 20 months Aged Out No longer eligible b ased on patient's age to complete this topic Varicella Vaccines Aged Out No longer eligible based on patient's age to complete this topic Care Teams Siphon Operator Relationship Specialty Start Date End Date Jimmy Awan MD [address] [place] [address] [address] ADRI Ugarte PCP - General 05/21/12
[2024-09-09 10:51] LABS: Anion Gap 11 (12-20); Blood Urea Nitrogen 31 mg/dL (9-16); Calcium 9.1 mg/dL (8.4-10.2); Carbon Dioxide 26 mmol/L (22-29); Chloride 110 mmol/L (96-108); Estimated Glomerular Filt Rate 33; Glucose Random 137 mg/dL (60-115); Potassium 4.4 mmol/L (3.3-5.1); Sodium 143 mmol/L (135-145)
== END 2024-09-09 09:37 | disposition home or self-care (01) ==
LOC: HO.10HDL 09:36
PROVIDERS: Visit Provider Internal Medicine Hypertension Specialist
DX: N18.4 Chronic kidney disease, stage 4 (severe) (principal)
CPT/HCPCS: 36415; 80048; 85025

== ENCOUNTER 2024-09-11 10:01 | Outpatient (AMB) | payer MEDICARE, OTHER, SELFPAY ==
[2024-09-11 10:02] VITALS: BP 148/42; PULSE 58; O2SAT 97; BMI 29.4
--- NOTE | 2024-09-11 10:02 | HO.NEPHOV_ITS ---
Vital Signs 09/11/24 10:02 09/11/24 10:23 Height 5 ft 2 in Weight 161 lb BMI 29.4 BP 148/42 H 140/50 H Blood Pressure Location Rt brachial Rt brachial Position Sitting Sitting Pulse 58 Pulse Source Pulse Oximeter Pulse Oximetry (%) 97 Oxygen Delivery Method Room Air Intake Visit Reasons: Anemia-Conf [employer] Supervisor Required: No Accompanied by: Daughter Allergies evolocumab [From Repatha SureClick] Allergy (Intermediate, Verified 09/11/24 10:05) Hives doxycycline Allergy (Mild, Verified 09/11/24 10:05) Vomiting levetiracetam [From Keppra] Allergy (Mild, Verified 09/11/24 10:05) Vomiting amoxicillin Allergy (Unknown, Verified 09/11/24 10:05) rash Penicillins Allergy (Unknown, Verified 09/11/24 10:05) rash prednisone Allergy (Unknown, Verified 09/11/24 10:05) rash ceftriaxone [From Rocephin] Allergy (Verified 09/11/24 10:05) Rash milk Allergy (Verified 09/11/24 10:05) Unknown omeprazole Adverse Reaction (Unknown, Verified 09/11/24 10:05) worsening heartburn ranitidine Adverse Reaction (Unknown, Verified 09/11/24 10:05) worsening heartburn, abdominal pain (ONLY to generic) Medication List - Last Reconciled 09/11/24 by Bjorn Larios MD albuterol sulfate 90 mcg/actuation 2 puffs inhalation Q6H PRN 30 days albuterol sulfate 2.5 mg (3 mL) inhalation QID PRN atorvastatin 80 mg PO BEDTIME 90 days bempedoic acid (Nexletol) 180 mg PO DAILY blood sugar diagnostic (FreeStyle Lite Strips) As directed- to test blood sugar TID cholecalciferol (vitamin D3) 50 mcg PO DAILY 90 days clopidogrel 75 mg PO DAILY 90 days ezetimibe 10 mg PO DAILY Farxiga (dapagliflozin propanediol) 10 mg PO QAM 90 days NS glyburide 5 mg in AM and 2.5 mg in PM orally BID 90 days lancets (FreeStyle Lancets) As directed once a day latanoprost 0.005% 1 drp ophthalmic (eye) BEDTIME loratadine 10 mg PO DAILY PRN 90 days NS metoprolol succinate ER 50 mg PO DAILY nitroglycerin mg sublingual ondansetron 4 mg PO Q8H PRN 15 days pantoprazole 40 mg PO DAILY sucralfate 1 g PO BEDTIME 30 days triamcinolone acetonide 0.1% 1 appl topical BID HPI Comments Details: 82-year-old woman with a history of longstanding diabetes mellitus for more than 30 years along with hypertension and peripheral vascular disease. She was on losartan for quite some time. Recently was shortness discontinued due to a bump in the creatinine. She was on metformin which has been held due to worsening serum creatinine. Farxiga has been added. She has increased urination otherwise no other issues. She was accompanied by her daughter today. She has extensive to vascular disease undergone stent placements for progressive disease. History of coronary disease as well. She has history of smoking for almost 30 years but she quit smoking more than 20 years ago. 08/02/23:Feels better;Has dysuria - this started after staring SGLT-2 inhibitor 01/17/24; s/p Angiogram last week;c/o dysuria and burning sensation 05/15/24 Here for follow up;No urinary sypmtoms Has dyspnea on exertion. No chest pain PFSH Medical History Chronic kidney disease, stage 4 (severe) Chronic kidney disease, stage III (moderate) Atrophic vaginitis Orbital fracture Upper GI bleeding Hearing impairment Seizure Recurrent urinary tract infection Overweight (BMI 25.0-29.9) Vitamin D deficiency Allergic rhinitis Meralgia paresthetica of right side Anemia GERD without esophagitis Asthma Hyperkalemia Diabetic polyneuropathy associated with type 2 diabetes mellitus Peripheral vascular disease Pure hypercholesterolemia Benign essential hypertension Carotid atherosclerosis Coronary artery disease (~06/09/21) Type 2 diabetes mellitus with diabetic polyneuropathy Surgical History Hx of colonoscopy History of endoscopy S/P CABG x 4 (~06/09/21) History of cardiac catheterization (~12/2023) History of left-sided carotid endarterectomy S/P LASIK surgery History of right-sided carotid endarterectomy History of laparoscopic cholecystectomy Family History Father CVD (cardiovascular disease) Mother Stroke Brother CVD (cardiovascular disease) Esophageal cancer Social History Household Members: Children Housing: House Are you a primary rn wound care to a significant other at home: No Do you presently have visiting nurse or other home services: No Alcohol intake: never Comment: cardiac Patient Tobacco Use Status: Former Tobacco user Tobacco use type: Cigarette e-Cigarette/Vaping Use: Never Used Second Hand Smoke Exposure: No Advance Directives Date on File: 01/11/22 service: No Current occupational status: retired 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 Lungs entry equal no rales. Heart S1-S2 heard no gallop or rub. Abdomen soft nontender. Neuro alert awake oriented. No asterixis. Extremities no edema. Results Reviewed Nephrology Results: Hgb 11.7 g/dl (12.0-16.0) L 09/09/24 WBC 5.5 X10*3/uL (4.8-10.8) 09/09/24 Plt Count 310 X10*3/uL (160-400) 09/09/24 Sodium 143 mmol/L (135-145) 09/09/24 Potassium 4.4 mmol/L (3.3-5.1) 09/09/24 Chloride 110 mmol/L (96-108) H 09/09/24 Carbon Dioxide 26 mmol/L (22-29) 09/09/24 BUN 31 mg/dL (9-16) H 09/09/24 Creatinine 1.53 mg/dL (0.5-1.4) H 09/09/24 Calcium 9.1 mg/dL (8.4-10.2) 09/09/24 Urine Protein Trace mg/dL (Neg-Trace) 05/13/24 Urine Creatinine 172.53 mg/dL 05/13/24 Assessment & Plan Assessment & Plan (1) Chronic kidney disease, stage III (moderate): Code(s): N18.30 - Chronic kidney disease, stage 3 unspecified Category: Medical Qualifiers: Chronic kidney disease stage 3 subtype: stage 3b (GFR 30-44) Qualified Code(s): N18.32 - Chronic kidney disease, stage 3b (2) Anemia: Code(s): D64.9 - Anemia, unspecified Category: Medical Qualifiers: Anemia type: unspecified type Qualified Code(s): D64.9 - Anemia, unspecified (3) Hyperkalemia: Code(s): E87.5 - Hyperkalemia Category: Medical (4) Peripheral vascular disease: Code(s): I73.9 - Peripheral vascular disease, unspecified Category: Medical (5) Coronary artery disease: Onset Date: ~06/09/21 Comment: S/P stenting of ostial LAD; S/P CABG x 4 (RODRIGUEZ-mid LAD, SVG-PLV, left radial artery-OM, SVG-diag) on 06/09/21 Code(s): I25.10 - Atherosclerotic heart disease of [place] coronary artery without angina pectoris Category: Medical Qualifiers: Coronary Disease-Associated Artery/Lesion type: [place] artery [place] vs. transplanted heart: [place] heart Associated angina: without angina Qualified Code(s): I25.10 - Atherosclerotic heart disease of [place] coronary artery without angina pectoris (6) Carotid atherosclerosis: Comment: S/P left carotid revascularization and endarterectomy in 2019 Code(s): I65.29 - Occlusion and stenosis of unspecified carotid artery Category: Medical Qualifiers: Laterality: left Qualified Code(s): I65.22 - Occlusion and stenosis of left carotid artery Plan 83-year-old woman with CKD in a setting of hypertension longstanding diabetes mellitus and peripheral vascular disease. Baseline creatinine is around 1.0 mg/dL. Creatinine is at 1.42 pre angiogram Currently stable at 1.6 over the past few months This might me the new baseline BP is well controlled Obstructive uropathy ruled out Based on the urine findings I do not believe she has any active glomerulonephritis or interstitial disease at this time. Glycosuria due to SGLT-2 inhibitor NO Proteinuria Potassium is better controlled Recommendations Maintain BP < 130/80 and A1C < 7% No indication for renal Doppler at this time. Low-potassium diet. Increase fluid intake. Avoid nephrotoxins including NSAIDs. Farxiga is expensive and she wants to try generic ; I sent in a eRx for Dapagliflozin ! Orders: Orders Complete Blood Count no Diff 4 Months N18.32 - Chronic kidney disease, stage 3b Basic Metabolic Panel 4 Months N18.32 - Chronic kidney disease, stage 3b Medications: New dapagliflozin propanediol 10 mg PO DAILY 90 tabs 1RF Discontinued Farxiga (dapagliflozin propanediol) Discontinued Reason: Duplicate 10 mg PO QAM 90 days 90 tabs 1RF NS Coding Level of Care Code Est Pt Level 4 (19502) Diagnoses Stage 3b chronic kidney disease N18.32 Chronic kidney disease stage 3 subtype: stage 3b (GFR 30-44) Anemia, unspecified type D64.9 Anemia type: unspecified type Hyperkalemia E87.5 Peripheral vascular disease I73.9 Coronary artery disease involving [place] coronary artery of [place] heart without angina pectoris I25.10 Coronary Disease-Associated Artery/Lesion type: [place] artery [place] vs. transplanted heart: [place] heart Associated angina: without angina Atherosclerosis of left carotid artery I65.22 Laterality: left
[2024-09-11 10:23] VITALS: BP 140/50
== END 2024-09-11 10:25 | disposition home or self-care (01) ==
PROVIDERS: PCP Internal Medicine; Visit Provider Internal Medicine Hypertension Specialist
DX: N18.32 Chronic kidney disease, stage 3b (principal); D64.9 Anemia, unspecified; E87.5 Hyperkalemia; I73.9 Peripheral vascular disease, unspecified; I25.10 Atherosclerotic heart disease of native coronary artery without angina pectoris; I65.22 Occlusion and stenosis of left carotid artery
CPT/HCPCS: 99214

== ENCOUNTER → 2024-09-11 10:01 | Outpatient (BNVA) | payer MEDICARE, OTHER, SELFPAY | PROVIDERS: PCP Internal Medicine; Visit Provider Internal Medicine Hypertension Specialist | DX: E11.22 Type 2 diabetes mellitus with diabetic chronic kidney disease (principal); I12.9 Hypertensive chronic kidney disease with stage 1 through stage 4 chronic kidney disease, or unspecified chronic kidney disease; N18.32 Chronic kidney disease, stage 3b; I73.9 Peripheral vascular disease, unspecified; I25.10 Atherosclerotic heart disease of native coronary artery without angina pectoris; I65.22 Occlusion and stenosis of left carotid artery; E87.5 Hyperkalemia | CPT/HCPCS: 99212 ==

== ENCOUNTER 2024-09-29 07:24 | Outpatient (REF) | payer MEDICARE, OTHER, SELFPAY ==
--- OUTSIDE RECORDS SUMMARY | 2024-09-29 07:27 | XMS_ITS | Clinical Summary ---
Author Organization [facility], Address [address] [facility] [place] [address] Phone Care Team Providers Care Pantry Attendant Name Role Phone Jimmy Awan MD Primary Care Provider [phone] Allergies Active Allergy Reactions Criticality Noted Date [...] age to complete this topic Insurance MEDICARE [facility] Care Teams Pantry Attendant Relationship Specialty Start Date End Date Jimmy Awan MD [address] [place] [address] PCP - General Internal Medicine 07/28/21
--- OUTSIDE RECORDS SUMMARY | 2024-09-29 07:27 | XMS_ITS | Data Portability ---
Author Organization Formerly [facility], [employer] Address [address] [facility] [place] [address] Care Team Providers Care Diamond Blender Name Role Phone GAURAV ROMAN Referring Provider LILIANA GREEN OTHER Assessment Encounter Date Assessment [...] contr ast No observ ation record ed. [address] [facility] ([facility]) [address] [place], [address], 10/17/2021 14:29:22 Result Notes None recorded. Procedures Surgical History Date Name Laterality Status Provider Name and Address Organization Details Recorded Time 10/13/2021 DATA REVIEW completed Antony Hernandez MD [address] [place] [address] [place], [address], [facility] 10/13/2021 17:40:07 Imaging Results Imaging Date Name Status LastModified by Organiz ation Details LastModified Time 10/13/2021 CT, head, w/o contrast completed [address] [facility] ([facility]) [address], [place], [address], 10/17/2021 14:29:22 Procedure Notes None recorded. Medical Equipment None Reported. Allergies Allergen ID Allergen Name Allergen Category Reaction Reaction Severity Criticality Documentation Date Start Date Code Code System Note Provider Name and Address Organization Details Recorded Time 1213 Product containin g penicilli n and antibioti c (product) medicatio n Not available Not available Not available 10/13/2021 35452 05 SNOMED [facility] 2 11:19:23 1214 doxycycli ne Not available Not available Not available Not available 10/13/2021 3640 [facility] [place] [facility] 2 11:22:18 1215 Keppra medicatio n Not available Not available Not available 10/13/2021 95385 7 RxNorm [place] [facility] 2 11:22:28 Medications Name Sig Start Date [...] Updated DateTime 10/13/2021 157.48 cm 27.1 kg/m2 75728.67 g 12 /min [facility] 10/13/2021 11:18:56 Social History Question Answer Notes LastModified by Organizat ion Details LastModified Time Tobacco Smoking Status Former Smoker [facility], [facility] 10/13/2021 11:24:52 What Is Your Level Of Alcohol Consumption? None Information not available 10/13/2021 What Is Your Level Of Caffeine Consumption? Occasional Information not available 10/13/2021 What Is The Highest Grade Or Level Of School You Have Completed Or The Highest Degree You Have Received? [id number] Information not available 10/13/2021 Which Of Your [...] Not available 11:23:37 Medical History Condition Response COPD or emphysema Y Heartburn, acid reflux, GERD Y Diabetes Y Asthma Y High Cholesterol or Hyperlipidemia Y Gynecological HistoryNo gynecological history recorded. Obstetrics History GPAL:G 0 P 0 0 0 0 Past Encounters Encounter ID Performer Location Encounter Start Date Encounter Closed Date Diagnosis/Indication Diagnosis SNOMED-CT Code Diagnosis ICD10 Code Diagnosis Note [id number] Antony Hernandez MD [facility] [address] [place] [address] [place] [address] 10/13/2021 10:47:12 10/17/2021 07:47:44 Complex partial seizure with impairment of consciousness 2184597 G40.209 Generalize d-onset seizures 0464805 G40.309 Acute cere brovascular insufficiency 21663468 I67.81 Health Concerns Section Related Observation LastModified by Organization Detai ls LastModified Time None Recorded Concern Status LastModified by Organization Details LastModified Time None Recorded Advance Directives Directive None Recorded Payers Encounter Date Sequence Insurance Name Policy Number Policy Jamil Covered Member ID Jamil Member ID Guarantor Name 10/13/2021 1 [place]: [employer] Jermain Gonzales [id number] Jermain Gonzales 10/13/2021 2 [facility] [id number] Jermain Gonzales [id number] Jermain Gonzales Notes Date Note Type Note [...] causing suspicion for seizure. Antony Hernandez MD [address] [place], [place] [address], [address], [facility] 10/13/2021 17:43:39 OBGyn Episode No OBEpisode recorded.
--- OUTSIDE RECORDS SUMMARY | 2024-09-29 07:27 | XMS_ITS | Encounter Summary ---
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 (CMS/HCC) (Primary Dx); Old myocardial infarction; Hx of CABG; Primary hypertension; Hyperlipidemia, unspecified hyperlipidemia type; Peripheral vascular disease (CMS/HCC) Social History Tobacco Use Types Packs/Day Years Used Date Smoking Tobacco: Former Cigarettes Smokeless Tobacco: Never Alcohol Use Standard Drinks/Week Comments Yes 0 (1 standard drink = 0.6 oz pur e alcohol) Comments Unknown Sex and Gender Information Value Date Recorded Sex Assigned at Not on file Legal Sex Female 11:16 AM EST Gender Identity Not on file Sexual Orientation Not on file documented as of this encounter Last Filed Vital Signs Vital Sign Reading Time Taken Comments Blood Pressure 120/74 09/12/2024 10:35 AM EST Pulse 59 09/12/2024 10:35 AM EST Temperature - - Respiratory Rate - - Oxygen Saturation 98% 09/12/2024 10: 35 AM EST Inhaled Oxygen Concentration - - Weight 73.4 kg (161 lb 12.8 oz) 025 10:35 AM EST Height 157.5 cm (5' 2 ) 09/12/2024 10:3 5 AM EST Body Mass Index 29.59 09/12/2024 10:35 AM EST documented in this encounter Ordered Prescriptions Prescription Sig Dispense Quantity Refills Last Filled Start Date End Date isosorbide mononitrate (IMDUR) 30 mg 24 hr tabletIndications:C oronary 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 Do not crush or chew. 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 For ongoing intermittent chest pain, she underwenta regadenoson nuclear stress test in October 2023 which was positive. Subsequent cardiac cath in December 2023 revealed an occluded SVG to PL which was felt to account for inferior ischemia that was seen onher stress test. Given no options for percutaneous revascularization of this graft, she has been managed medically. She once again has been having episodes of stable angina typically relieved by 1 or2 doses of nitroglycerin. We discussed starting isosorbide including its mechanism of action as well as potential adverse effects; she states that she had been on this prior to her CABG and does not r emember having any side effects from it. She will notify our office of any intolerable or concerning adverse effects after starting it and will call our office if she is finding that it is not improving her symptoms sufficiently. We will not make any other changes to her guideline directed medical therapies for coronary artery disease; continue metoprolol, atorvastatin and bempedoic acid, and DAPT with clopidogrel and daily ASA. The patient was advised to seek emergent medical attention by calling 911 if they were to develop severe dyspnea, chest pain that did not resolve with rest or nitroglycerin, or if they were to faint. Orders: ECG 12 lead isosorbide mononitrate (IMDUR) 30 mg 24 hr tablet; Take 1 tablet (30 mg total) by mouth 1 (one) time each day. Do not crush or chew. * Clemencia Aviles NP - 09/12/2024 10:40 AM ESTAssociated Problem(s): Hypertension Blood pressure is favorable on current medical therapy; continue metoprolol addition to newly addedisosorbide. We will attempt to get more with her recent labs from her PCPs office for review. * Clemencia Aviles NP - 09/12/2024 10:40 AM ESTAssociated Problem(s): Old myocardial infarction * Clemencia Aviles NP - 09/12/2024 10:40 AM ESTAssociated Problem(s): Hyperlipidemia The patient's most recent lipid panel was completed in 10/2023 revealing an LDL of 109 which is above goal of less than 55 for this patient with a history of coronary artery disease as well as diabetes. She is already on max dose of atorvastatin but has been unable to tolerate ezetimibe or any [id number] and is subsequently on bempedoic acid as well. She thinks that she has had a recent lipidpanel completed via her PCP office; we will attempt to obtain this for review. * Clemencia Aviles NP - 09/12/2024 10:40 AM ESTAssociated Problem(s): Hx of CABG * Clemencia Aviles NP - 09/12/2024 10:40 AM ESTAssociated Problem(s): Peripheral vascular disease (CMS/HCC) The patient will continue to follow with vascular surgery as recommended. * Clemencia Aviles NP - 09/12/2024 10:40 AM EST Images from the original note were not included. [facility] PRIMARY TAX COMMISSIONER: Alex Green MD PCP: Jimmy Awan MD HPI: Jermain Gonzales is a 83 y.o. old female with a past medical history significant for coronary artery disease status post CABG x 4, hypertension, hyperlipidemia, peripheral vascular disease (previous carotid endarterectomy followed by Dr. Jesus), TIAs (several in 2021), and diabetes. She was previously admitted for hemorrhagic shock secondary to an upper GI bleed (multiple ulcers in her esophagus) in 11/2021; she had also fallen resulting in an orbital fracture. In May 2021, she underwent CABG x 4 with RODRIGUEZ to mid LAD, vein graft to the PLV, left radial artery to OMB, SVG to diagonal after having increased angina and undergoing cardiac catheterization which revealed stenosis in the mid LAD, 80% left circumflex with in-stent restenosis and totally occluded RCA that had collateralized. I last saw the patient in October 2023 at which time she was reporting intermittent chest pain and shortness of breath with exertion; she underwent regadenoson nuclear stress test which revealed a medium in size and mild in intensity reversible perfusion defect in the basal to mid inferior wall and ba bryant inferoseptal wall. No fixed perfusion defects to suggest infarct. LVEF 57%. There was evidence of significant multivessel coronary artery calcifications on CT images. She subsequently underwent cardiac catheterization on 01/11/2024 which revealed a patent RODRIGUEZ to LAD, SVG to diagonal, and radial to OM as well as an occluded SVG to PL which they felt accounted for the inferior ischemia seen on the stress test. Normal LVEDP. No significant gradient across the aortic valve on pullback. There were no options for percutaneous revascularization of this graft and it wa s suggested to optimize GDMT for established CAD and antianginal therapy. Due to difficulty with vascular access, it was recommended that the patient undergo coronary CTA in the future instead of repeat angiography. She did not tolerate Zetia for unclear reasons and was trialed on a PCSK9 inhibitor but developed an itchy rash. She was then started on bempedoic acid which she appears to be tolerating well. However, it is expensive and she states she is not eligible for financial assistance programs. Her most recent echocardiogram was completed on 04/03/2024 secondary to reports of dyspnea showing normal LV size and systolic function with mild concentric LVH, the base of the mid section of the inferior wall and inferior septum are hypokinetic; EF 50 to 55%. Grade 1 diastolic dysfunction. Normal left and right atrium. Normal RV size and function. No significant valvular abnormalities. No significant change from January 2022. She presents today for follow-up of coronary artery disease, hypertension, and hyperlipidemia. She is accompanied by her daughter, Florencia, with whom she lives. When she last saw Dr. Green in February 2024, she was no longer having chest pains. Since then, she reports having sporadic episodes of chest pain over the left chest that sometimes radiate to the back. These can occur at night while she is resting, usually after further stressful day; less frequently it will occur with exertion such as goingup the stairs too quickly or running. They will usually last for 5 minutes or less but if they last longer than 15 to 20 minutes she will take nitro; 1 or 2 doses typically resolves her symptoms very quickly. Sometimes this will occur 2 to 3 times per month; last nitro use was 1 to 2 weeks ago. She states her episodes usually start with shortness of breath that she feels is due to her asthma; if she tries her inhalers and they do not help then the chest pain will start. She denies any accompanying symptoms such as palpitations or diaphoresis; in general, she does not have any palpitations. The only time she will feel lightheaded or dizzy is when her blood sugar drops and this will occasionally make her feel presyncopal; no actual syncope. Her daughter notes that she has been very pale on occasion recently; the patient reports her hemoglobin earlier this week was around 11 which is really good for her. If it drops below 8 or 9 then she will undergo iron infusions but this has not happened since her ulcers were treated. She denies any peripheral edema. She has baseline difficulty with her breathing at night due to her asthma but has been using a wedge for this for many years; no additional orthopnea or PND. ACTIVE MEDICATIONS: Outpatient Medications Marked as Taking for the 09/12/24 encounter (Office Visit) with Clemencia Aviles NP Medication Sig Dispense Refill albuterol HFA (PROAIR HFA ; PROVENTIL HFA ; VENTOLIN HFA) 90 mcg/actuation inhaler Inhale 2 puffs by mouth every 4 (four) hours if needed. atorvastatin (LIPITOR) 80 mg tablet Take 1 tablet (80 mg total) by mouth 1 (one) time each day. bempedoic acid (Nexletol) 180 mg tablet Take 180 mg by mouth 1 (one) time each day. cholecalciferol (VITAMIN D-3) 25 mcg (1,000 unit) tablet Take by mouth. clopidogreL (PLAVIX) 75 mg tablet Take 1 tablet (75 mg total) by mouth 1 (one) time each day. dapagliflozin propanediol (FARXIGA) 10 mg tablet Take 1 tablet (10 mg total) by mouth 1 (one) time each day. famotidine (PEPCID) 20 mg tablet Take 1 tablet (20 mg total) by mouth 2 (two) times a day. glyBURIDE (DIABETA) 5 mg tablet Take 1 tablet (5 mg total) by mouth 1 (one) time each day with breakfast. latanoprost (XALATAN) 0.005 % ophthalmic solution 1 Drop at bedtime. loratadine (CLARITIN) 10 mg tablet Take 1 tablet (10 mg total) by mouth 1 (one) time each day. metoprolol succinate (TOPROL-XL) 50 mg 24 hr tablet Take 1 tablet (50 mg total) by mouth 1 (one) time each day. nitroglycerin (NITROSTAT) 0.[address] 1 tablet (0.3 mg total) under the tongue every 5 (five) minutes if needed. ondansetron (ZOFRAN) 4 mg tablet Take 1 tablet (4 mg total) by mouth 2 (two) times a day. pantoprazole (PROTONIX) 40 mg EC tablet Take 1 tablet (40 mg total) by mouth 1 (one) time each day. sucralfate (CARAFATE) 1 gram tablet Take 1 tablet (1 g total) by mouth at bedtime. [DISCONTINUED] evolocumab (Repatha SureClick) 140 mg/mL pen injector injection Inject 1 mL (140 mg total) under the skin every 14 (fourteen) days. 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 (CMS/HCC) Hypertension Peripheral vascular disease (CMS/HCC) Carotid artery occlusion Old myocardial infarction Angina pectoris (CMS/HCC) Hyperlipidemia Type 2 diabetes mellitus (CMS/HCC) Diabetes 1.5, managed as type 2 (CMS/HCC) Seizure disorder (CMS/HCC) Hx of CABG FR[place]LIN (dyspnea on exertion) ALLERGIES: Allergies Allergen Reactions Doxycycline Hydrocortisone Rash Levetiracetam Milk Containing Products (Dairy) Mold Penicillins Prednisone SOCIAL HISTORY: Social History Tobacco Use Smoking status: Former Types: Cigarettes Smokeless tobacco: Never Substance Use Topics Alcohol use: Yes PHYSICAL EXAM: Vitals: 09/12/24 1035 BP: 120/74 Pulse: 59 SpO2: 98% Weight: 73.4 kg (161 lb 12.8 oz) Height: 1.575 m (62 ) Body mass index is 29.59 kg/m??. Physical Exam Vitals reviewed. Constitutional: General: She is not in acute distress. Appearance: Normal appearance. She is not ill-appearing. Comments: overweight HENT: Head: Normocephalic and atraumatic. Mouth/Throat: Mouth: Mucous membranes are moist. Eyes: General: No scleral icterus. Extraocular Movements: Extraocular movements intact. Pupils: Pupils are equal, round, and reactive to light. Neck: Vascular: Decreased carotid pulses (1+ left, 2+ right). Carotid bruit (left) present. No hepatojugular reflux or JVD. Cardiovascular: Rate and Rhythm: Normal rate and regular rhythm. Pulses: Normal pulses. Heart sounds: Normal heart sounds. No murmur heard. No friction rub. No gallop. Pulmonary: Effort: Pulmonary effort is normal. No respiratory distress. Breath sounds: Normal breath sounds. No wheezing, rhonchi or rales. Abdominal: General: There is no distension. Palpations: Abdomen is soft. Tenderness: There is no abdominal tenderness. Musculoskeletal: General: No swelling. Cervical back: Neck supple. Right lower leg: No edema. Left lower leg: No edema. Skin: General: Skin is warm and dry. Neurological: General: No focal deficit present. Mental Status: She is alert and oriented to person, place, and time. Cranial Nerves: No cranial nerve deficit. Gait: Gait normal. Psychiatric: Attention and Perception: Attention normal. Mood and Affect: Mood and affect normal. Behavior: Behavior normal. Thought Content: Thought content normal. EKG: Encounter Date: 09/12/24 ECG 12 lead Result Value Ventricular Rate ECG 59 Atrial Rate 59 P-R Interval 154 QRS Duration 84 Q-T Interval 420 QTc 415 P Wave [place] 73 R [place] 44 T [place] 118 ECG Interpretation Sinus bradycardia ST and T wave abnormality, consider lateral ischemia Abnormal ECG Similar to previous 01/11/2024 Confirmed by Nomi GREEN JAY ([id number]) on 09/12/2024 4:54:03 PM *Note: Due to a large number of results and/or encounters for the requested time period, some results have not been displayed. A complete set of results can be found in Results Review. 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 For ongoing intermittent chest pain, she underwenta regadenoson nuclear stress test in October 2023 which was positive. Subsequent cardiac cath in December 2023 revealed an occluded SVG to PL which was felt to account for inferior ischemia that was seen onher stress test. Given no options for percutaneous revascularization of this graft, she has been managed medically. She once again has been having episodes of stable angina typically relieved by 1 or2 doses of nitroglycerin. We discussed starting isosorbide including its mechanism of action as well as potential adverse effects; she states that she had been on this prior to her CABG and does not r emember having any side effects from it. She will notify our office of any intolerable or concerning adverse effects after starting it and will call our office if she is finding that it is not improving her symptoms sufficiently. We will not make any other changes to her guideline directed medical therapies for coronary artery disease; continue metoprolol, atorvastatin and bempedoic acid, and DAPT with clopidogrel and daily ASA. The patient was advised to seek emergent medical attention by calling 911 if they were to develop severe dyspnea, chest pain that did not resolve with rest or nitroglycerin, or if they were to faint. Orders: ECG 12 lead isosorbide mononitrate (IMDUR) 30 mg 24 hr tablet; Take 1 tablet (30 mg total) by mouth 1 (one) time each day. Do not crush or chew. Old myocardial infarction Hx of CABG Primary hypertension Blood pressure is favorable on current medical therapy; continue metoprolol addition to newly addedisosorbide. We will attempt to get more with her recent labs from her PCPs office for review. Hyperlipidemia, unspecified hyperlipidemia type The patient's most recent lipid panel was completed in 10/2023 revealing an LDL of 109 which is above goal of less than 55 for this patient with a history of coronary artery disease as well as diabetes. She is already on max dose of atorvastatin but has been unable to tolerate ezetimibe or any [id number] and is subsequently on bempedoic acid as well. She thinks that she has had a recent lipidpanel completed via her PCP office; we will attempt to obtain this for review. Peripheral vascular disease ([facility]/HCC) The patient will continue to follow with vascular surgery as recommended. I personally spent a total of 40 minutes, including both [id number]-[id number]-bimb and [id number]-gh-face time on the date of the encounter, addressing the above diagnoses. Activities performed in this time include chart review, obtaining / reviewing history, performing amedically necessary evaluation, documentation and counseling including medical decision making of coronary artery disease, hypertension, hyperlipidemia, and peripheral vascular disease. Thank you for allowing us to participate in the care of this patient. The patient will follow up in3 months, sooner PRN. As per AHA guidelines and previously established plan of care by Dr. Alex Green MD, we discussed the following today: Coronary artery disease, hypertension, hyperlipidemia, and peripheral vascular disease. This note was dictated using voice recognition software. Please pardon any grammatical or syntax errors. [facility] Cosigned by Alex Green MD at 09/15/2024 7:43 AM EST * Ramona Pascal MA - 09/12/2024 10:40 AM EST Called left voicemail for the patient to give me a call, as our records have the wrong phone numberfor her PCP. 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 (CMS/HCC) documented in this encounter Results * ECG 12 lead (09/12/2024 10:48 AM EST) Ventricular Rate ECG 59 BPM GEMUSE Atrial Rate 59 BPM GEMUSE P-R Interval 154 ms GEMUSE QRS Duration 84 ms GEMUSE Q-T Interval 420 ms GEMUSE QTc 415 ms GEMUSE P Wave [place] 73 degrees GEMUSE R Bedford 44 degrees GEMUSE T [place] 118 degrees GEMUSE ECG Interpretation Sinus bradycardia ST and T wave abnormality, consider lateral ischemia Abnormal ECG Similar to previous 01/11/2024 Confirmed by Nomi GREEN JAY ([id number]) on 09/12/2024 4:54:03 PM GEMUSE 09/12/2024 10:4 8 AM EST 09/12/2024 4:54 PM EST Clemencia Aviles [employer] ECG ORDERABLES Final Result GEMSAMI documented in this encounter Visit Diagnoses Diagnosis 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 ([facility])- Primary Old myocardial infarction Hx of CABG Postsurgical aortocoronary bypass status Primary hypertension Unspecified essential hypertension Hyperlipidemia, unspecified hyperlipidemia type Peripheral vascular disease ([facility]) Unspecified peripheral vascular disease documented in this encounter Discontinued Medications Medication Sig Discontinue Reason Start Date End Da te evolocumab (Repatha SureClick) 140 mg/mL pen injector injection Inject 1 mL (140 mg total) under the skin every 14 (fourteen) days. Discontinued by another clinician 03/12/2024 09/12/2024 documented as of this encounter Care Teams Nursery Attendant Relationship Specialty Start Date End Date Jimmy Awan MD [address] [place] [address] [address] [place] PCP - General 05/21/12 documented as of this encounter
--- OUTSIDE RECORDS SUMMARY | 2024-09-29 07:27 | XMS_ITS | Clinical Summary ---
Author Organization [address] [place] [address] [place] [phone] Phone Care Team Providers Care Food Technologist Name Role Phone Jimmy Awan MD Primary Care Provider Allergies Active Allergy Reactions Criticality Noted Date Comments Doxycycline 08/01/2021 Hydrocortisone Rash 03/01/2022 Levetiracetam 08/01/2021 Milk Containing Products (Dairy) Mold 03/01/2022 Penicillins 10/28/2020 Prednisone 10/28/2020 Medications bempedoic acid (Nexletol) 180 mg tablet Take 180 mg by mouth 1 (one) time each day. 4 Active glyBURIDE (DIABETA) 5 mg tablet Take 1 tablet (5 mg total) by mouth 1 (one) time each day with breakfast. Active dapagliflozin propanediol (FARXIGA) 10 mg tablet Take 1 tablet (10 mg total) by mouth 1 (one) time each day. Active nitroglycerin (NITROSTAT) 0.[address] 1 tablet (0.3 mg total) under the tongue every 5 (five) minutes if needed. 4 12/04/19 25 Active atorvastatin (LIPITOR) 80 mg tablet Take 1 tablet (80 mg total) by mouth 1 (one) time each day. 3 Active metoprolol succinate (TOPROL-XL) 50 mg 24 hr tablet Take 1 tablet (50 mg total) by mouth 1 (one) time each day. 2 Active pantoprazole (PROTONIX) 40 mg EC tablet [...] mcg (1,000 unit) tablet Take by mouth. Active famotidine (PEPCID) 20 mg tablet Take 1 [...] every 4 (four) hours if needed. Active isosorbide mononitrate (IMDUR) 30 mg 24 hr tabletIndication s:Coronary artery disease of [place] artery of [place] heart with stable angina pectoris (CMS/HCC) Take 1 tablet (30 mg total) by mouth 1 (one) time each day. Do not crush or chew. 90 each 1 5 Active evolocumab (Repatha SureClick) 140 mg/mL pen injector injection Inject 1 mL (140 mg total) under the skin every 14 (fourteen) days. 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 Old myocardial infarction 06/21/2021 Assessment & Plan (09/12/2024 6:55 PM EST): Type 2 diabetes mellitus 06/21/2021 [facility] with stable angina pectoris 10/28/2020 [...] nitroglycerin, or if they were to faint. Assessment & Plan (09/12/2024 6:55 PM EST): The patient is now status post CABG x 4 in 2020. For ongoing intermittent chest pain, she underwent a regadenoson nuclear stress test in October 2023 which was positive. Subsequent cardiac cath in December 2023 revealed an occluded SVG to PL which was felt to account for inferior ischemia that was seen on her stress test. Given no options for percutaneous revascularization of this graft, she has been managed medically. She once again has been having episodes of stable angina typically relieved by 1 or 2 doses of nitroglycerin. We discussed starting isosorbide including its mechanism of action as well as potential adverse effects; she states that she had been on this prior to her CABG and does not remember having any side effects from it. She [...] each day. Do not crush or chew. Hypertension 10/28/2020 Overview (07/15/2024): Last Assessment & [...] try to obtain these from her PCP. Assessment & Plan (09/12/2024 6:55 PM EST): Blood pressure is favorable on current medical therapy; continue metoprolol addition to newly added isosorbide. We will attempt to get more with her recent labs from her PCPs office for review. Peripheral vascular disease 10/28/2020 Overview (07/15/2024): Last Assessment & Plan: Follows with Dr. Jesus at [facility] Assessment & Plan (09/12/2024 6:55 PM EST): The patient will continue to follow with vascular surgery as recommended. Hyperlipidemia 10/28/2020 Overview (07/15/2024): Last Assessment & [...] on maximum dosing of high intensity statin. Assessment & Plan (09/12/2024 6:55 PM EST): The patient's most recent lipid panel was completed in 10/2023 revealing an LDL of 109 which is above goal of less than 55 for this patient with a history of coronary artery disease as well as diabetes. She is already on max dose of atorvastatin but has been unable to tolerate ezetimibe or any PCSK9 inhibitor and is subsequently on bempedoic acid as well. She thinks that she has had a recent lipid panel completed via her PCP office; we will attempt to obtain this for review. Encounters Date Type Department Care Team Description 09/12/2024 10:40 AM EST Office Visit [facility] - [address] [place] [address] Clemencia Aviles NP Coronary artery disease of [place] artery of [place] heart with stable angina pectoris ([facility]) (Primary Dx); Old myocardial infarction; Hx of CABG; Primary hypertension; Hyperlipidemia, unspecified hyperlipidemia type; Peripheral vascular disease ([facility]) from Last 3 Months Surgical History Surgery Date Site/Laterality Comments BLADDER [...] site debridement BYPASS GRAFT 09/10/2013 Left PROCEDURE: MA AMPUTATION TOE METATARSOPHALANGEAL JOINT; COMMENT: 2nd toe CARDIAC CATHETERIZATION 07/02/2013 PROCEDURE: HISTORICAL CARDIAC CATH OTHER SURGICAL HISTORY 02/18/2013 PROCEDURE: MA CORONARY ENDARTERCOMY OPEN ANY METHOD OTHER SURGICAL HISTORY 02/18/2013 PROCEDURE: MA BYPASS W/VEIN FEMORAL-FEMORAL OTHER SURGICAL HISTORY 07/31/2012 PROCEDURE: HISTORY OTHER; COMMENT: Right carotid endarterectomy with patch angioplasty reconstruction CARDIAC CATHETERIZATION 05/21/2012 PROCEDURE: HISTORICAL CARDIAC CATH CHOLECYSTECTOMY PROCEDURE: HISTORICAL CHOLECYSTECTOMY Medical History Medical History Date Comments Fall 03/01/2022 DX:Fall Hematemesis DX:Hematemesis Left orbit fracture ([facility]) DX :Left orbit fracture ([facility]) Upper GI bleed DX:Upper GI blee d Hemorrhagic shock ([facility]) DX:H emorrhagic shock ([facility]) Acute kidney injury superimp osed on CKD ([facility]) DX:Acute kidney injury super imposed on CKD ([facility]) Hyponatremia DX:Hyponatremia Delirium DX:Delirium UTI (urinary tract infection) DX :UTI (urinary tract infection) Anemia DX:Anemia Claudication ([facility]) DX:Claudi cation ([facility]) COPD (chronic obstructive pu lmonary disease) ([facility]) DX:COPD (chronic obstructive pulmonary disease) ([facility]) 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 ([facility]) DX:D iabetes mellitus ([facility]) GERD (gastroesophageal reflu x disease) DX:GERD (gastroesophageal [...] Mass Index 29.59 09/12/2024 10:35 AM EST Plan of Treatment Upcoming Encounters Date Type Department Care Team (Late st Contact Info) Description 2024 11:10 AM EDT Office Visit [facility] - [facility] [address] [facility] [address] [place] [phone] Clemencia Aviles NP [address] [facility] [address] [place] [address] Health Maintenance Due Date Last Done Comments Diabetes: Annual GFR (Glomerular Filtration Rate) 1942 Pneumococcal Vaccine: 50+ Years (1 of 2 - PCV) 1948 Diabetes: Annual Foot Exam 1952 Diabetes: Annual Retina Eye Exam 1952 Zoster Vaccines (1 of 2) 1992 RSV Immunization Patients 60+ Years Old (1 - 1-dose 75+ series) 2017 Cholesterol Screening (Lipid Panel) 07/18/2022 Falls Risk Assessment 07/18/2022 Medicare Annual Wellness Visit 07/18/2022 Osteoporosis Screening (Bone Density Screening) 07/18/2022 Social Influencers of Health Screening 07/18/2022 Diabetes: Annual Urine Albumin-Creatinine Ratio (uACR) 07/27/2022 Diabetes: Blood Sugar Control Test (HGBA1C) 07/27/2022 Hypertension/CHF/CAD Annual BMP Blood Test 07/27/2022 Depression Screening 09/21/2022 09/21/2021 COVID-19 Vaccine ( season) 2024 08/29/2021, 10/21/2020, 09/29/2020 DTaP,Tdap,and Td Vaccines (2 - Td or Tdap) 08/18/2026 08/18/2016 Influenza Vaccine Completed 04/22/2024, , 07/25/2021, Additional history exists HIB Vaccines Aged Out No longer eligi [...] to complete this topic RSV Immunization Patients Under 20 months Aged Out No longer eligible based on patient's age to complete this topic Varicella Vaccines Aged Out No longer eligible based on patient's age to complete this topic Procedures Procedure Name Priority Date/Time Associated Diagnosis Comments ECG 12-LEAD Routine 09/12/2024 10:48 AM EST Coronary artery disease of [place] artery of [place] heart with stable angina pectoris (CMS/HCC) from Last 3 Months Results * ECG 12 lead (09/12/2024 10:48 AM EST) Ventricular Rate ECG 59 BPM GEMUSE Atrial Rate 59 BPM GEMUSE P-R Interval 154 ms GEMUSE QRS Duration 84 ms GEMUSE Q-T Interval 420 ms GEMUSE QTc 415 ms GEMUSE P Wave Twain 73 degrees GEMUSE R Twain 44 degrees GEMUSE T Twain 118 degrees GEMUSE ECG Interpretation Sinus bradycardia ST and T wave abnormality, consider lateral ischemia Abnormal ECG Similar to previous 01/11/2024 Confirmed by Nomi GREEN, LILIANA ([id number]) on 09/12/2024 4:54:03 PM GEMUSE 09/12/2024 10:4 8 AM EST 09/12/2024 4:54 PM EST Clemencia Aviles GRIP ASSEMBLER ECG ORDERABLES Final Result GEMUSE from Last [address] [facility] Care Teams Food Technologist Relationship Specialty Start Date End Date Jimmy Awan MD [facility] [address] PCP - General 05/21/12
[2024-09-29 07:51] LABS: MANUAL DIFF FLAG NO
[2024-09-29 08:26] LABS: Basophils Percent Auto 0.7 % (0-2); Eosinophils Absolute Auto 0.1 X10*3/uL (0.0-0.4); Eosinophils Percent Auto 2.4 % (0-4); Hemoglobin 10.6 g/dl (12.0-16.0); Imm Gran Abs Auto 0.02 X10*3/uL (0.00-0.03); Imm Gran Pct Auto 0.3 % (0.0-0.4); Lymphocytes Absolute Auto 0.8 X10*3/uL (1.2-4.9); Lymphocytes Percent Auto 13.5 % (20-40); Mean Corpuscular HGB Conc 31.2 g/dl (31.0-35.0); Mean Corpuscular Volume 86.7 fL (80.0-98.0); Mean Platelet Volume 8.7 fL (9.4-12.3); Monocytes Absolute Auto 0.5 X10*3/uL (0.1-1.2); Monocytes Percent Auto 8.5 % (2-11); Neutrophils Absolute Auto 4.3 x10*3/uL (2.0-8.3); Neutrophils Percent Auto 74.6 % (45-73); Platelet Count 281 X10*3/uL (160-400); Red Blood Count 3.92 X10*6/uL (4.20-5.50); Red Cell Distribution Width 14.4 % (11.0-16.0); White Blood Count 5.8 X10*3/uL (4.8-10.8)
[2024-09-29 08:32] LABS: Estimated Average Glucose 143 mg/dL; Hemoglobin A1C 137.0012 umol/L; Hemoglobin A1c % 6.6 % (<6.0)
[2024-09-29 08:56] LABS: Blood Urea Nitrogen 38 mg/dL (9-16); Calcium 8.7 mg/dL (8.4-10.2)
[2024-09-29 08:57] LABS: Appearance Urine Cloudy; Color Urine Yellow; Glucose Urine UA >=1000 mg/dL (Negative); Leukocyte Esterase Urine Small (1+) (Negative); Nitrite Urine Positive (Negative); PH 5.5 (5.0-9.0); Specific Gravity - Urine 1.025 (1.005-1.025); UMIC TRIGGER UACC YES; Urine Blood Negative (Negative); Urine Ketones Negative (Negative); Urine Protein Negative (Neg-Trace)
[2024-09-29 09:02] LABS: Bacteria Urine 4+ (None Seen); Hyaline Casts Urine 0-2 /LPF (0-2); RBC Urine 0-2 /HPF (0-2); UACC Culture Trigger YES; WBC Urine >50 /HPF (0-5)
[2024-09-29 09:11] LABS: Alanine Aminotransferase 7 U/L (0-31); Albumin Level 3.7 g/dL (3.5-5.0); Alkaline Phosphatase 70 U/L (39-117); Anion Gap 13 (12-20); Aspartate Amino Transferase 17 U/L (5-31); Bilirubin Total 0.4 mg/dL (0.0-1.0); Blood Urea Nitrogen 34 mg/dL (9-16); Calcium 8.5 mg/dL (8.4-10.2); Carbon Dioxide 27 mmol/L (22-29); Chloride 110 mmol/L (96-108); Cholesterol 137 mg/dL (<200); Estimated Glomerular Filt Rate 31; Glucose Fasting 124 mg/dL (60-99); HDL Cholesterol 38 mg/dL (>40); LDL Cholesterol Calculated 79 mg/dL (<100); Potassium 4.5 mmol/L (3.3-5.1); Sodium 145 mmol/L (135-145); Total Protein 6.4 g/dL (6.5-8.0); Triglycerides 101 mg/dL (<150)
[2024-09-29 09:20] LABS: Creatinine Urine 95.75 mg/dL; Microalbum/Creatinine Ratio Ur 22.9 ug/mg cr (<30)
[2024-09-29 09:21] LABS: TSH reflex Free T4 3.16 uIU/mL (0.32-4.0); Vitamin D 25-OH Total 49.6 ng/mL (>30)
[2024-09-29 09:32] LABS: Folate 6.1 ng/mL (> or = 4.0); Vitamin B12 464 pg/mL (200-900)
== END 2024-09-29 07:25 | disposition home or self-care (01) ==
LOC: HO.LAB 07:24
PROVIDERS: Internal Medicine Hypertension Specialist; PCP Internal Medicine; Visit Provider Internal Medicine
DX: D64.9 Anemia, unspecified (principal); E78.00 Pure hypercholesterolemia, unspecified; E53.8 Deficiency of other specified B group vitamins; E11.9 Type 2 diabetes mellitus without complications; E55.9 Vitamin D deficiency, unspecified; N17.9 Acute kidney failure, unspecified; R30.0 Dysuria; B96.20 Unspecified Escherichia coli [E. coli] as the cause of diseases classified elsewhere
CPT/HCPCS: 36415; 80053; 80061; 81001; 81003; 82043; 82306; 82310; 82570; 82607; 82746; 83036; 84443; 84520; 85025; 87086; 87088; 87186

== ENCOUNTER 2024-09-30 09:38 | Outpatient (AMB) | payer MEDICARE, OTHER, SELFPAY ==
[2024-09-30 09:55] VITALS: BP 120/64; PULSE 66; O2SAT 99; BMI 29.7
--- NOTE | 2024-09-30 09:55 | MHC.PC.OV ---
Vital Signs 09/30/24 09:55 Height 5 ft 2 in Weight 162 lb 6 oz BMI 29.7 BP 120/64 Blood Pressure Location Lt brachial Position Sitting Pulse 66 Pulse Source Pulse Oximeter Pulse Oximetry (%) 99 Oxygen Delivery Method Room Air Intake Visit Reasons: DM, hyperlipidemia, CKD, CAD [employer] Writer Required: No Accompanied by: Self / Same As Patient Allergies evolocumab [From Repatha SureClick] Allergy (Intermediate, Verified 09/30/24 10:29) Hives doxycycline Allergy (Mild, Verified 09/30/24 10:29) Vomiting levetiracetam [From Keppra] Allergy (Mild, Verified 09/30/24 10:29) Vomiting amoxicillin Allergy (Unknown, Verified 09/30/24 10:29) rash Penicillins Allergy (Unknown, Verified 09/30/24 10:) rash prednisone Allergy (Unknown, Verified 09/30/24 10:29) rash ceftriaxone [From Rocephin] Allergy (Verified 09/30/24 10:29) Rash milk Allergy (Verified 09/30/24 10:) Unknown omeprazole Adverse Reaction (Unknown, Verified 09/30/24 10:29) worsening heartburn ranitidine Adverse Reaction (Unknown, Verified 09/30/24 10:29) worsening heartburn, abdominal pain (ONLY to generic) Medication List - Last Reconciled 09/30/24 by Jimmy Awan MD albuterol sulfate 90 mcg/actuation 2 puffs inhalation Q6H PRN 30 days albuterol sulfate 2.5 mg (3 mL) inhalation QID PRN atorvastatin 80 mg PO BEDTIME 90 days bempedoic acid (Nexletol) 180 mg PO DAILY blood sugar diagnostic (FreeStyle Lite Strips) As directed- to test blood sugar TID cholecalciferol (vitamin D3) 50 mcg PO DAILY 90 days clopidogrel 75 mg PO DAILY 90 days dapagliflozin propanediol 10 mg PO DAILY ezetimibe 10 mg PO DAILY glyburide 5 mg in AM and 2.5 mg in PM orally BID 90 days isosorbide mononitrate ER 30 mg PO DAILY lancets (FreeStyle Lancets) As directed once a day latanoprost 0.005% 1 drp ophthalmic (eye) BEDTIME loratadine 10 mg PO DAILY PRN 90 days NS metoprolol succinate ER 50 mg PO DAILY nitroglycerin mg sublingual ondansetron 4 mg PO Q8H PRN 15 days pantoprazole 40 mg PO DAILY sucralfate 1 g PO BEDTIME 30 days triamcinolone acetonide 0.1% 1 appl topical BID Tobacco use date assessed: 09/30/24 Fall risk assessment: 2 + Falls in past year Last assessed Fall Risk: 09/30/24 Dental Screening Dental Screen Date: 09/30/24 Did you have a dental visit in the last 12 months?: No Did you have a dental problem in the last 6 months where you did not have access to dental care?: No Was dental information given to patient?: No HPI DM, hyperlipidemia, CKD, CAD HPI Details Patient comes in today for her follow up visit States that she has been experiencing recurrent pain and discomfort over her left jaw and left preauricular area for about a month now States that she is not sure if the pain is actually coming from her left ear as she also has sharp pains in her left ear at times She denies any fever, sore throat or any recent cough/cold symptoms She denies any headaches or dizziness Denies any chest pains, no increased SOB No nausea/vomiting, no abdominal pain No change in bowel habits noted She will need her Albuterol inhaler Rx refilled today She had her follow up labs done yesterday - to discuss her results [facility] Medical History Chronic kidney disease, stage 4 (severe) Chronic kidney disease, stage III (moderate) Atrophic vaginitis Orbital fracture Upper GI bleeding Hearing impairment Seizure Recurrent urinary tract infection Overweight (BMI 25.0-29.9) Vitamin D deficiency Allergic rhinitis Meralgia paresthetica of right side Anemia GERD without esophagitis Asthma Hyperkalemia Diabetic polyneuropathy associated with type 2 diabetes mellitus Peripheral vascular disease Pure hypercholesterolemia Benign essential hypertension Carotid atherosclerosis Coronary artery disease (~06/09/21) Type 2 diabetes mellitus with diabetic polyneuropathy Surgical History Hx of colonoscopy History of endoscopy S/P CABG x 4 (~06/09/21) History of cardiac catheterization (~12/2023) History of left-sided carotid endarterectomy S/P LASIK surgery History of right-sided carotid endarterectomy History of laparoscopic cholecystectomy Family History Father CVD (cardiovascular disease) Mother Stroke Brother CVD (cardiovascular disease) Esophageal cancer Social History Household Members: Children Housing: House Are you a primary tire care manager to a significant other at home: No Do you presently have visiting nurse or other home services: No Alcohol intake: never Comment: cardiac Patient Tobacco Use Status: Former Tobacco user Tobacco use type: Cigarette e-Cigarette/Vaping Use: Never Used Second Hand Smoke Exposure: No Advance Directives Date on File: 01/11/22 service: No Current occupational status: retired 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 1. Little interest or pleasure in doing things: not at all 2. Feeling down, depressed, or hopeless: not at all 3. Trouble falling or staying asleep, or sleeping too much: not at all 4. Feeling tired or having little energy: not at all 5. Poor appetite or overeating: not at all 6. Feeling bad about yourself - or that you are a failure or have let yourself or your family down: not at all 7. Trouble concentrating on things, such as reading the newspaper or watching television: not at all 8. Moving or speaking so slowly that other people could have noticed. Or the opposite - being so fidgety or restless that you have been moving around a lot more than usual: not at all 9. Thoughts that you would be better off or of hurting yourself in some way: not at all Total score: 0 Depression Screening Interpretation: Negative Depression Screening Done: Yes 53486 - PHQ-9 Billing: Yes Source: Developed by Drs. Aquiles Alford, Yohana Coto, Jay Jay Metz and colleagues, with an educational yessi from [employer]. Thrive Questionnaire Date Thrive assessed: 09/30/24 I am a: Patient What is your living situation today?: I have a steady place to live Within the past 12 months, did the food you bought not last and you didn't have the money to get more?: Never true Within the past 12 months, did you worry whether your food would run out before you got money to buy more?: Never true Do you have trouble paying for medicines?: No Do you have trouble getting transportation to medical appointments?: No Do you have trouble paying your heating and electricity bill?: No Do you have trouble taking care of your child, family member or friend?: No Do you have trouble with day-to-day activities such as bathing, preparing meals, shopping, managing finances, etc.?: No Are you currently unemployed and looking for a job?: No Are you interested in more education?: No Please select the resources that you would like help with: None Currently or been in a relationship where the following occur: No concerns reported THRIVE Score: 0 AUDIT C Alcohol Use Questionnaire (AUDIT-C) 1. How often do you have a drink containing alcohol?: Never 3. How often do you have six or more drinks on one occasion?: Never Total Score: 0 Score Reviewed/Action Taken: Yes GALILEA-7 AMB Questionnaire GALILEA-7 Date GALILEA - 7 assessed: 09/30/24 Feeling nervous, anxious, or on edge: 0 = Not at all Not being able to stop or control worryin = Not at all Worrying too much about different things: 0 = Not at all Trouble relaxin = Not at all Being so restless that it is hard to sit still: 0 = Not at all Becoming easily annoyed or irritable: 0 = Not at all Feeling afraid as if something awful might happen: 0 = Not at all Total GALILEA-7 score (0-4 normal; 5-9 mild; 10-14 moderate; 15-21 severe): 0 Source: Developed by Drs. Aquiles Alford, Yohana Coto, Jay Jay Metz and colleagues, with an educational yessi from [employer]. Review of Systems Const Denies chills, Denies fatigue, Denies fever(s) and Denies headache(s) ENT Details: (+) recurrent pain over the left jaw area and the left preauricular area Denies dysphagia, Denies dizziness, Denies ear discharge, Reports otalgia (in the left ear, on and off - see HPI), Denies headache(s), Reports hearing loss, Denies neck pain, Denies odynophagia and Denies sore throat Card Denies chest pain, Denies palpitations and Reports dyspnea on exertion (mild) Resp Denies chest congestion, Denies cough and Reports dyspnea on exertion (mild) GI Denies abdominal pain, Denies constipation, Denies dysphagia, Denies heartburn, Denies diarrhea, Denies nausea, Denies odynophagia and Denies vomiting Denies difficulty voiding, Denies nocturia and Denies dysuria Musc Denies back pain and Denies neck pain Skin/Breast Denies rash Neuro Denies dizziness and Denies headache(s) Endo Denies fatigue and Denies palpitations Physical exam (Primary Care) Vital Signs: Last Vital Signs Pulse 66 09/30/24 09:55 BP 120/64 09/30/24 09:55 Pulse Ox 99 09/30/24 09:55 Oxygen Delivery Method Room Air 09/30/24 09:55 BMI result Body Mass Index 29.7 Tobacco/Smoking Status: Tobacco use Status Tobacco use date assessed 09/30/24 09/30/24 10:03 Patient Tobacco Use Status Former Tobacco user 09/30/24 10:03 Tobacco use type Cigarette 09/30/24 10:03 e-Cigarette/Vaping Use Never Used 09/30/24 10:03 PHQ-9: PHQ-9 Score PHQ-9: Total score 0 09/30/24 10:30 Depression Screening Interpretation: Negative Thrive Assessment: Date of Thrive Assessment Date Thrive assessed 09/30/24 09/30/24 10:03 Currently or been in a relationship where the following occur: No concerns reported Const General: no acute distress and alert HENMT Other: (+) tenderness on palpation over the left preauricular area and over the left TMJ area Ears: TM's normal bilaterally and EAC's normal Throat: Yes posterior oropharynx normal and Yes tonsils normal (no TP congestion noted) Neck Neck: Yes supple and No lymphadenopathy Thyroid: Thyroid normal Resp Auscultation: clear to auscultation bilaterally, no rales and no wheezes Cardio Rate: regular rate Rhythm: regular rhythm Heart sounds: no murmurs GI Palpation (GI): Soft to palpation and nontender Auscultation: normal bowel sounds General: Yes no CVA tenderness Back/Spine/Pelvis Back: no CVA tenderness Thoracic/Lumbar Spine: No lumbar spinal tenderness Skin Rashes: no rashes Extrem General: Yes no clubbing, cyanosis or edema Results Reviewed Results Reviewed: Laboratory Tests 09/29/24 09/29/24 07:37 07:48 WBC 5.8 Hgb 10.6 L Hct 34.0 L Plt Count 281 Sodium 145 Potassium 4.5 Creatinine 1.59 H Estimated GFR 31 Fasting Glucose 124 H Hemoglobin A1c % 6.6 H Calcium 8.5 D AST 17 ALT 7 Triglycerides 101 Cholesterol 137 LDL Cholesterol, Calc 79 HDL Cholesterol 38 L Vitamin B12 464 25-OH Vitamin D Total 49.6 TSH 3.16 Ur Specific Patten 1.025 Urine Protein Negative Urine Glucose (UA) >=1000 H Urine Blood Negative Urine Nitrite Positive H Ur Leukocyte Esterase Small (1+) H Microalb/Creat Ratio 22.9 Coding Level of Care Code Est Pt Level 4 (94446) Diagnoses Coronary artery disease involving [place] coronary artery of [place] heart without angina pectoris I25.10 Coronary Disease-Associated Artery/Lesion type: [place] artery [place] vs. transplanted heart: [place] heart Associated angina: without angina Atherosclerosis of left carotid artery I65.22 Laterality: left Peripheral vascular disease I73.9 Pure hypercholesterolemia E78.00 Benign essential hypertension I10 Type 2 diabetes mellitus with diabetic polyneuropathy, without long-term current use of insulin E11.42 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 nursing home insulin use: without nursing home use Diabetic polyneuropathy associated with type 2 diabetes mellitus E11.42 Stage 3b chronic kidney disease N18.32 Chronic kidney disease stage 3 subtype: stage 3b (GFR 30-44) Anemia, unspecified type D64.9 Anemia type: unspecified type Moderate persistent asthma without complication J45.40 Asthma severity: moderate Asthma persistence: persistent Asthma complication type: uncomplicated Allergic rhinitis, unspecified seasonality, unspecified trigger J30.9 Allergic rhinitis trigger: unspecified Allergic rhinitis seasonality: unspecified Jaw pain R68.84 Vitamin D deficiency E55.9 Seizure R56.9 Overweight (BMI 25.0-29.9) E66.3 Additional Codes PHQ-9 - 91988 - PHQ-9 Billing: Yes ([id number]) Assessment & Plan Assessment & Plan (1) Coronary artery disease: Onset Date: ~06/09/21 Comment: S/P stenting of ostial LAD; S/P CABG x 4 (RODRIGUEZ-mid LAD, SVG-PLV, left radial artery-OM, SVG-diag) on 06/09/21 Code(s): I25.10 - Atherosclerotic heart disease of [place] coronary artery without angina pectoris Category: Medical Qualifiers: Coronary Disease-Associated Artery/Lesion type: [place] artery [place] vs. transplanted heart: [place] heart Associated angina: without angina Qualified Code(s): I25.10 - Atherosclerotic heart disease of [place] coronary artery without angina pectoris Plan: S/P CABG x 4 in May 2021 She reportedly had an angiogram/cardiac cath done at [facility] last year (2023) and was advised that she has (+) occluded SVG to PL but there are no options for percutaneous revascularization of this graft and she should just continue with aggressive medical management Continue Metoprolol ER 50 mg QD and Clopidogrel 75 mg QD; Aspirin 81 mg QD was previously discontinued due to her upper GI bleeding She was started back on Isosorbide Mononitrate ER 30 mg QD by cardiology recently due to some chest pains/discomfort on her part Patient also has NTG 0.4 mg tablets to take SL PRN for chest pains Patient is currently asymptomatic on her present medications from a cardiac standpoint Follow up with cardiology (Dr. Alba) as scheduled (2) Carotid atherosclerosis: Comment: S/P left carotid revascularization and endarterectomy in 2018 Code(s): I65.29 - Occlusion and stenosis of unspecified carotid artery Category: Medical Qualifiers: Laterality: left Qualified Code(s): I65.22 - Occlusion and stenosis of left carotid artery Plan: Continue Clopidogrel 75 mg QD She had a repeat carotid US done a couple of years ago that reportedly came out stable with no significant disease progression Follow up with vascular surgery (Dr. Jesus) as scheduled (3) Peripheral vascular disease: Code(s): I73.9 - Peripheral vascular disease, unspecified Category: Medical Plan: Follow up with vascular surgery as scheduled (4) Pure hypercholesterolemia: Code(s): E78.00 - Pure hypercholesterolemia, unspecified Category: Medical Plan: Results of her labs done yesterday reviewed and discussed with patient Reinforced low cholesterol diet Continue Atorvastatin 80 mg QD and Ezetimibe 10 mg QD Will recheck her labs and fasting lipids in 3 months for follow up (5) Benign essential hypertension: Code(s): I10 - Essential (primary) hypertension Category: Medical Plan: Reinforced low-sodium diet - goal is systolic BP of at least 120 to 130 mm or less due to her comorbidities Continue Metoprolol ER 50 mg QD; Losartan was previously discontinued due to hyperkalemia Amlodipine (5 mg) was also discontinued likely due to edema (6) Type 2 diabetes mellitus with diabetic polyneuropathy: Code(s): E11.42 - Type 2 diabetes mellitus with diabetic polyneuropathy Category: Medical Qualifiers: 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 nursing home insulin use: without terminal worker use Qualified Code(s): E11.42 - Type 2 diabetes mellitus with diabetic polyneuropathy Plan: Her HgbA1c was at 6.6% on her recent labs done yesterday (this was previously at 7.9% a few months ago) - goal is < 7.0% Reinforced diabetic diet She was taken OFF Metformin a few months ago due to her declining renal function and is currently on Farxiga 10 mg QD and Glyburide 5 mg Q AM and 2.5 mg Q PM She has also been referred to a satellite dish installer last year to help advise her on how to navigate her diet with all of her comorbidities (7) Diabetic polyneuropathy associated with type 2 diabetes mellitus: Code(s): E11.42 - Type 2 diabetes mellitus with diabetic polyneuropathy Category: Medical Plan: Continue Oxycodone-Acetaminophen 5-325 mg 2 to 3 times a day ONLY NEEDED for severe pain Will consider starting her on Gabapentin if her symptoms progress or worsen (8) Chronic kidney disease, stage III (moderate): Code(s): N18.30 - Chronic kidney disease, stage 3 unspecified Category: Medical Qualifiers: Chronic kidney disease stage 3 subtype: stage 3b (GFR 30-44) Qualified Code(s): N18.32 - Chronic kidney disease, stage 3b Plan: Her serum creatinine and GFR appears to have stabilized lately on her recent labs and she is now back in CKD stage 3b (as opposed to stage 4) Follow up with nephrology as scheduled Will continue to monitor GFR and renal function regularly (9) Anemia: Code(s): D64.9 - Anemia, unspecified Category: Medical Qualifiers: Anemia type: unspecified type Qualified Code(s): D64.9 - Anemia, unspecified Plan: Stable - was most likely multifactorial, including due to upper GI bleeding a couple of years ago that required Hemospray and 2 units of PRBC Will continue to monitor her CBC regularly Follow up with hematology (Dr. Vazquez) as scheduled (10) Asthma: Code(s): J45.909 - Unspecified asthma, uncomplicated Category: Medical Qualifiers: Asthma severity: moderate Asthma persistence: persistent Asthma complication type: uncomplicated Qualified Code(s): J45.40 - Moderate persistent asthma, uncomplicated Plan: Stable Continue Albuterol HFA 2 puffs 4 times a day as needed Patient also has a nebulizer that she uses (with Albuterol solution 0.083%) up to 4 times a day when needed (11) Allergic rhinitis: Code(s): J30.9 - Allergic rhinitis, unspecified Category: Medical Qualifiers: Allergic rhinitis trigger: unspecified Allergic rhinitis seasonality: unspecified Qualified Code(s): J30.9 - Allergic rhinitis, unspecified Plan: Continue Loratadine 10 mg QD PRN (12) Jaw pain: Comment: LEFT Code(s): R68.84 - Jaw pain Category: Medical Plan: Have advised patient that her recurrent left ear pain may actually be referred pain from her left jaw or left preauricular area as this area is evidently tender on palpation (her left ear exam is normal) Will send her for x-rays of the left jaw/TMJ for further evaluation - possibilities include TMJ dysfunction vs. OA of the left mandibular joint (13) Vitamin D deficiency: Code(s): E55.9 - Vitamin D deficiency, unspecified Category: Medical Plan: Continue Vitamin D3 1000 units QD (14) Seizure: Code(s): R56.9 - Unspecified convulsions Category: Medical Plan: This was most likely due to (adverse reaction from) Doxycycline; she has had no recurrence of seizures since her discharge from [facility] a couple of years ago CTA of the head/neck and MRI of the brain done back then came out negative EEG done showed mild to moderate background slowing with occasional triphasic waves but no epileptiform activity was noted Neurology (Dr. Hernandez) thinks that patient actually had a TIA instead of a seizure (15) Overweight (BMI 25.0-29.9): Code(s): E66.3 - Overweight Category: Medical Plan: Reinforced diet/weight loss; exercise is unrealistic given patient's multiple comorbidities Plan Follow up in 3 months Orders: Orders Complete Blood Count Auto Diff 3 Months D64.9 - Anemia, unspecified Comprehensive [place]. Panel Fast 3 Months E78.00 - Pure hypercholesterolemia, unspecified Microalbumin, Random (w Creat) 3 Months E11.9 - Type 2 diabetes mellitus without complications TSH reflex Free T4 3 Months E78.00 - Pure hypercholesterolemia, unspecified UA CC w/rflx Micro + Cult 3 Months R30.0 - Dysuria Vitamin D 25-OH Total 3 Months E55.9 - Vitamin D deficiency, unspecified XR mandible min 4V Today R68.84 - Jaw pain Hemoglobin A1c 3 Months E11.9 - Type 2 diabetes mellitus without complications Lipid Panel 3 Months E78.00 - Pure hypercholesterolemia, unspecified Vitamin B12 and Folate 3 Months E53.8 - Deficiency of other specified B group vitamins Medications: Refilled albuterol sulfate 90 mcg/actuation 2 puffs inhalation Q6H 30 days PRN 8.5 grams 5RF shortness of breath or wheezing
--- OUTSIDE RECORDS SUMMARY | 2024-09-30 10:45 | XMS_ITS | Data Portability ---
Author Organization Formerly [facility] [employer] Address [address] [place] [address] Care Team Providers Care Community Coordinator For High School Name Role Phone GAURAV ROMAN Referring Provider [phone] LILIANA GREEN OTHER Assessment Encounter Date Assessment [...] contr ast No observ ation record ed. [address] [facility] ([facility]) [address] [place], [address], 10/17/2021 14:29:22 Result Notes None recorded. Procedures Surgical History Date Name Laterality Status Provider Name and Address Organization Details Recorded Time 10/13/2021 DATA REVIEW completed Antony Hernandez MD [address] [place] [address] [place], [address], [facility] 10/13/2021 17:40:07 Imaging Results Imaging Date Name Status LastModified by Organiz ation Details LastModified Time 10/13/2021 CT, head, w/o contrast completed [address] [facility] ([facility]) [address], [place], [address], 10/17/2021 14:29:22 Procedure Notes None recorded. Medical Equipment None Reported. Allergies Allergen ID Allergen Name Allergen Category Reaction Reaction Severity Criticality Documentation Date Start Date Code Code System Note Provider Name and Address Organization Details Recorded Time 1213 Product containin g penicilli n and antibioti c (product) medicatio n Not available Not available Not available 10/13/2021 25681 05 SNOMED [facility] 2 11:19:23 1214 doxycycli ne Not available Not available Not available Not available 10/13/2021 3640 RxNorm [place] [facility] 2 11:22:18 1215 Keppra medicatio n Not available Not available Not available 10/13/2021 34859 7 RxNorm [facility] 2 11:22:28 Medications Name Sig Start [...] Updated DateTime 10/13/2021 157.48 cm 27.1 kg/m2 27661.67 g 12 /min [facility] 10/13/2021 11:18:56 Social History Question Answer Notes LastModified by Organizat ion Details LastModified Time Tobacco Smoking Status Former Smoker [facility], [facility] 10/13/2021 11:24:52 What Is Your Level Of Alcohol Consumption? None Information not available 10/13/2021 What Is Your Level Of Caffeine Consumption? Occasional Information not available 10/13/2021 What Is The Highest Grade Or Level Of School You Have Completed Or The Highest Degree You Have Received? [id number] Information not available 10/13/2021 Which Of Your [...] Not available 11:23:37 Medical History Condition Response Diabetes Y Heartburn, acid reflux, GERD Y Asthma Y High Cholesterol or Hyperlipidemia Y COPD or emphysema Y Gynecological HistoryNo gynecological history recorded. 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 7501291 G40.209 Generalize d-onset seizures 3696306 G40.309 Acute cere brovascular insufficiency 72315288 I67.81 Health Concerns Section Related Observation LastModified by Organization Detai ls LastModified Time None Recorded Concern Status LastModified by Organization Details LastModified Time None Recorded Advance Directives Directive None Recorded Payers Encounter Date Sequence Insurance Name Policy Number Policy Jamil Covered Member ID Jamil Member ID Guarantor Name 10/13/2021 1 [place]ICARE [place]: [employer] Jermain Gonzales [id number] Jermain Gonzales 10/13/2021 2 [facility] [id number] Jermain Gonzales [id number] Jermain Gonzales Notes Date Note Type Note [...] causing suspicion for seizure. Antony Hernandez MD [address] [place], [place] [address], [address], [facility] 10/13/2021 17:43:39 OBGyn Episode No OBEpisode recorded.
--- OUTSIDE RECORDS SUMMARY | 2024-09-30 10:46 | XMS_ITS | Clinical Summary ---
Author Organization [facility], Address [address] [facility] [address] [place] [address] Phone Care Team Providers Care Mechanical Equipment Test Engineer Name Role Phone Jimmy Awan MD Primary Care Provider [phone] Allergies Active Allergy Reactions Criticality Noted Date [...] age to complete this topic Insurance MEDICARE [facility] Care Teams Mechanical Equipment Test Engineer Relationship Specialty Start Date End Date Jimmy Awan MD [address] [place] [address] PCP - General Internal Medicine 07/28/21
--- OUTSIDE RECORDS SUMMARY | 2024-09-30 10:46 | XMS_ITS | Clinical Summary ---
Author Organization [address] [place] [address] [place] [phone] Phone Care Team Providers Care Hebrew Teacher Name Role Phone Jimmy Awan MD Primary [...] 24 hr tabletIndication s:Coronary artery disease of [place] artery of [place] heart with stable angina pectoris (CMS/HCC) Take [...] mellitus 06/21/2021 [facility] 10/28/2020 [...] & Plan: Follows with Dr. Jesus at [facility] Assessment & Plan (09/12/2024 6:55 PM EST): [...] Description 09/12/2024 10:40 AM EST Office Visit [facility] [address] [place] [address] Clemencia Aviles NP Coronary artery disease of [place] artery of [place] heart with stable angina pectoris ([facility]) (Primary Dx); Old myocardial infarction; Hx of CABG; Primary hypertension; Hyperlipidemia, unspecified hyperlipidemia type; Peripheral vascular disease ([facility]) from Last 3 Months Surgical History Surgery [...] site debridement BYPASS GRAFT 09/10/2013 Left PROCEDURE: ME AMPUTATION TOE METATARSOPHALANGEAL JOINT; COMMENT: 2nd toe CARDIAC CATHETERIZATION 07/02/2013 PROCEDURE: HISTORICAL CARDIAC CATH OTHER SURGICAL HISTORY 02/18/2013 PROCEDURE: ME CORONARY ENDARTERCOMY OPEN ANY METHOD OTHER SURGICAL HISTORY 02/18/2013 PROCEDURE: ME BYPASS W/VEIN FEMORAL-FEMORAL OTHER SURGICAL HISTORY 07/31/2012 PROCEDURE: HISTORY OTHER; COMMENT: Right carotid endarterectomy with patch angioplasty reconstruction CARDIAC CATHETERIZATION 05/21/2012 PROCEDURE: HISTORICAL CARDIAC CATH CHOLECYSTECTOMY PROCEDURE: HISTORICAL CHOLECYSTECTOMY Medical History Medical History Date Comments Fall 03/01/2022 DX:Fall Hematemesis DX:Hematemesis Left orbit fracture ([facility]) DX :Left orbit fracture ([facility]) Upper GI bleed DX:Upper GI blee d Hemorrhagic shock ([facility]) DX:H emorrhagic shock ([facility]) Acute kidney injury superimp osed on CKD ([facility]) DX:Acute kidney injury super imposed on CKD ([facility]) Hyponatremia DX:Hyponatremia Delirium DX:Delirium UTI (urinary tract infection) DX :UTI (urinary tract infection) Anemia DX:Anemia Claudication ([facility]) DX:Claudi cation ([facility]) COPD (chronic obstructive pu lmonary disease) ([facility]) DX:COPD (chronic obstructive pulmonary disease) ([facility]) 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 ([facility]) DX:D iabetes mellitus ([facility]) GERD (gastroesophageal reflu x disease) DX:GERD (gastroesophageal [...] Description 2024 11:10 AM EDT Office Visit [facility] [address] [facility] [address] [place] [address] Clemencia Aviles NP [address] [facility] [address] [place] [address] Health Maintenance Due Date Last Done Comments Diabetes: Annual GFR (Glomerular Filtration Rate) 1942 Diabetes: Annual Foot Exam 1952 Diabetes: Annual Retina Eye Exam 1952 Pneumococcal Vaccine: 50+ Years (1 of 2 - PCV) 1961 Zoster Vaccines (1 of 2) 1992 DTaP,Tdap,and Td Vaccines (2 - Td or Tdap) 09/15/2016 08/18/2016 RSV Immunization Patients 60+ Years Old (1 [...] Vaccine ( season) 2024 08/29/2021, 10/21/2020, 09/29/2020 Influenza Vaccine Completed 04/22/2024, , 07/25/2021, Additional [...] patient's age to complete this topic Meningococcal B Vacine Aged Out No lo nger eligible based on patient's age to complete this topic RSV Immunization Patients Under 20 months Aged Out No longer eligible based on patient's age to complete this topic Varicella Vaccines Aged Out No longer eligible based on patient's age to complete this topic Procedures Procedure Name Priority Date/Time Associated Diagnosis Comments ECG 12-LEAD Routine 09/12/2024 10:48 AM EST Coronary artery disease of [place] artery of [place] heart with stable angina pectoris (CMS/HCC) from Last 3 Months Results * ECG 12 lead (09/12/2024 10:48 AM EST) Ventricular Rate ECG 59 BPM GEMUSE Atrial Rate 59 BPM GEMUSE P-R Interval 154 ms GEMUSE QRS Duration 84 ms GEMUSE Q-T Interval 420 ms GEMUSE QTc 415 ms GEMUSE P Wave [place] 73 degrees GEMUSE R Lena 44 degrees GEMUSE T Lena 118 degrees GEMUSE ECG Interpretation Sinus bradycardia ST and T wave abnormality, consider lateral ischemia Abnormal ECG Similar to previous 01/11/2024 Confirmed by Nomi GREEN JAY ([id number]) on 09/12/2024 4:54:03 PM GEMUSE 09/12/2024 10:4 8 AM EST 09/12/2024 4:54 PM EST Clemencia Aviles WAITER/WAITRESS BAR ECG ORDERABLES Final Result GEMUSE from Last 3 Months Insurance MEDICARE [facility] [address] [place] [address] Care Teams Hebrew Teacher Relationship Specialty Start Date End Date Jimmy Awan MD [address] [place] [address] [address] PCP - General 05/21/12
--- OUTSIDE RECORDS SUMMARY | 2024-09-30 10:46 | XMS_ITS | Encounter Summary ---
Author Organization [facility] Address [address] [place] [address] Care Team Providers Care Foreman Or Supervisor And Operator Name Role Phone Jimmy Awan MD Primary Care Provider Reason for Visit * Reason Comments Follow-up Coronary Artery Disease 6 month follow u p Encounter Details Date Type Department Care Team (Late st Contact Info) Description 09/12/2024 10:40 AM EST Office Visit [facility] - [address] [place] [id number] Clemencia Aviles NP [address] [place] [address] Coronary artery disease of [place] artery of [place] heart with stable angina pectoris (CMS/HCC) (Primary [...] 24 hr tabletIndications:C oronary artery disease of [place] artery of [place] heart with stable angina pectoris (CMS/HCC) Take 1 tablet (30 mg total) by mouth 1 (one) time each day. Do not crush or chew. 90 each 1 09/12/2024 documented in this encounter Progress Notes * Clemencia Aviles, SOCIAL SCIENCES DEPARTMENT CHAIR - 09/12/2024 10:40 AM ESTAssociated Problem(s): Coronary artery disease of [place] heart with stable angina pectoris (CMS/HCC) The [...] been unable to tolerate ezetimibe or any [id number] and is subsequently on bempedoic acid as [...] from the original note were not included. [facility] PRIMARY INTERACTIVE MEDIA MARKETING DIRECTOR: Alex Green MD PCP: Jimmy Awan MD [...] Problem List Diagnosis Coronary artery disease of [place] heart with stable angina pectoris (CMS/HCC) Hypertension [...] Q-T Interval 420 QTc 415 P Wave [place] 73 R [place] 44 T [place] 118 ECG Interpretation Sinus bradycardia ST and [...] Assessment & Plan Coronary artery disease of [place] artery of [place] heart with stable angina pectoris ([facility]) The patient is now status post CABG [...] been unable to tolerate ezetimibe or any [id number] and is subsequently on bempedoic acid as well. She thinks that she has had a recent lipidpanel completed via her PCP office; we will attempt to obtain this for review. Peripheral vascular disease ([facility]/HCC) The patient will continue to follow with vascular surgery as recommended. I personally spent a total of 40 minutes, including both iqor-dv-aabm and rsd-uudz-gn-face time on the date of the encounter, [...] Please pardon any grammatical or syntax errors. [facility] Cosigned by Alex Green MD [...] Description 2024 11:10 AM EDT Office Visit [facility] - [address] [place] [address] Clemencia Aviles NP [address] [place] [address] documented as of this encounter Procedures Procedure Name Priority Date/Time Associated Diagnosis Comments ECG 12-LEAD Routine 09/12/2024 10:48 AM EST Coronary artery disease of [place] artery of [place] heart with stable angina pectoris (CMS/HCC) documented in this encounter Results * ECG 12 lead (09/12/2024 10:48 AM EST) Ventricular Rate ECG 59 BPM GEMUSE Atrial Rate 59 BPM GEMUSE P-R Interval 154 ms GEMUSE QRS Duration 84 ms GEMUSE Q-T Interval 420 ms GEMUSE QTc 415 ms GEMUSE P Wave [place] 73 degrees GEMUSE R [place] 44 degrees GEMUSE T [place] 118 degrees GEMUSE ECG Interpretation Sinus bradycardia ST and T wave abnormality, consider lateral ischemia Abnormal ECG Similar to previous 01/11/2024 Confirmed by Nomi GREEN JAY ([id number]) on 09/12/2024 4:54:03 PM GEMUSE 09/12/2024 10:4 8 AM EST 09/12/2024 4:54 PM EST Clemencia Aviles SOCIAL SCIENCES DEPARTMENT CHAIR ECG ORDERABLES Final Result GEMSAMI documented in this encounter Visit Diagnoses Diagnosis Coronary artery disease of [place] artery of [place] heart with stable angina pectoris ([facility])- Primary Old myocardial infarction Hx of CABG Postsurgical aortocoronary bypass status Primary hypertension Unspecified essential hypertension Hyperlipidemia, unspecified hyperlipidemia type Peripheral vascular disease ([facility]) Unspecified peripheral vascular disease documented in this encounter Discontinued Medications Medication Sig Discontinue Reason Start Date End Da te evolocumab (Repatha SureClick) 140 mg/mL pen injector injection Inject 1 mL (140 mg total) under the skin every 14 (fourteen) days. Discontinued by another clinician 03/12/2024 09/12/2024 documented as of this encounter Care Teams Foreman Or Supervisor And Operator Relationship Specialty Start Date End Date Jimmy Awan MD [address] [place] [address] [address] [place] PCP - General 05/21/12 documented as of this encounter
== END 2024-09-30 10:42 | disposition home or self-care (01) ==
PROVIDERS: PCP Internal Medicine; Visit Provider Internal Medicine
DX: I12.9 Hypertensive chronic kidney disease with stage 1 through stage 4 chronic kidney disease, or unspecified chronic kidney disease (principal); I73.9 Peripheral vascular disease, unspecified; E11.42 Type 2 diabetes mellitus with diabetic polyneuropathy; R56.9 Unspecified convulsions; N18.32 Chronic kidney disease, stage 3b; I25.10 Atherosclerotic heart disease of native coronary artery without angina pectoris; I65.22 Occlusion and stenosis of left carotid artery; E78.00 Pure hypercholesterolemia, unspecified; D64.9 Anemia, unspecified; J45.40 Moderate persistent asthma, uncomplicated; J30.9 Allergic rhinitis, unspecified; R68.84 Jaw pain

== ENCOUNTER → 2024-09-30 09:38 | Outpatient (BNVA) | payer MEDICARE, OTHER, SELFPAY | PROVIDERS: PCP Internal Medicine; Visit Provider Internal Medicine | DX: I25.10 Atherosclerotic heart disease of native coronary artery without angina pectoris (principal); I12.9 Hypertensive chronic kidney disease with stage 1 through stage 4 chronic kidney disease, or unspecified chronic kidney disease; E11.22 Type 2 diabetes mellitus with diabetic chronic kidney disease; N18.32 Chronic kidney disease, stage 3b; I65.22 Occlusion and stenosis of left carotid artery; I73.9 Peripheral vascular disease, unspecified; E78.00 Pure hypercholesterolemia, unspecified; E11.42 Type 2 diabetes mellitus with diabetic polyneuropathy; D64.9 Anemia, unspecified; J45.40 Moderate persistent asthma, uncomplicated; J30.9 Allergic rhinitis, unspecified; R68.84 Jaw pain; E55.9 Vitamin D deficiency, unspecified; R56.9 Unspecified convulsions; E66.3 Overweight | CPT/HCPCS: 96127; 99212 ==

== ENCOUNTER 2024-11-11 08:27 | Outpatient (AMB) | payer MEDICARE, OTHER, SELFPAY ==
--- NOTE | 2024-11-11 08:29 | MHC.OFFVIS ---
Vital Signs 11/11/24 08:43 Height 5 ft 2 in Weight 158 lb BMI 28.9 BP 152/48 H Blood Pressure Location Lt brachial Position Sitting Pulse 60 Pulse Source Pulse Oximeter Pulse Oximetry (%) 97 Oxygen Delivery Method Room Air Intake Visit Reasons: 6 month follow up Intake Note: ESTABLISHED PATIENT for GERD, anemia mgmt. Chief Complaint; C/O burning type throat pain but is different from reflux. Pt also has reported dysphagia with hard/solid foods. Soft foods seem OK. No additional concerns at this time. Waterworks Employee Required: No Accompanied by: Family/Other Allergies evolocumab [From Repatha [employer]] Allergy (Intermediate, Verified 11/11/24 08:43) Hives doxycycline Allergy (Mild, Verified 11/11/24 08:43) Vomiting levetiracetam [From Keppra] Allergy (Mild, Verified 11/11/24 08:43) Vomiting amoxicillin Allergy (Unknown, Verified 11/11/24 08:43) rash Penicillins Allergy (Unknown, Verified 11/11/24 08:43) rash prednisone Allergy (Unknown, Verified 11/11/24 08:43) rash ceftriaxone [From Rocephin] Allergy (Verified 11/11/24 08:43) Rash milk Allergy (Verified 11/11/24 08:43) Unknown omeprazole Adverse Reaction (Unknown, Verified 11/11/24 08:43) worsening heartburn ranitidine Adverse Reaction (Unknown, Verified 11/11/24 08:43) worsening heartburn, abdominal pain (ONLY to generic) HPI HPI 6 month follow up: Details: LAST VISIT 05/12/2024 Anemia GERD (gastroesophageal reflux disease) Postprandial diarrhea Plan Patient will continue pantoprazole in the morning and sucralfate at bedtime. Avoid dietary triggers and late night snacking. Staying upright for minimum 3 hours after meals discussed with patient. Patient has blood work ordered by PCP will try to get it done. Follow-up in the office in 6 months, sooner on as needed basis. She is agreeable to this plan and verbalizes understanding of instructions. She was given the opportunity to ask questions and all questions answered. TODAY'S VISIT Patient is here today for follow-up. Patient is accompanied by her daughter. Patient reports that in the past few months she has been having trouble swallowing feels like there is something stuck in her throat. Reports sore throat, no fever or chills. Admits that sometimes she will have dry mouth when she wakes up. Sometimes postnasal drip. Denies any acid reflux, dyspepsia. Reports moving her bowels without any issues. Currently takes pantoprazole in the morning half an hour before breakfast and sucralfate at bedtime. Eventually would like her to stop or cut down the dose of pantoprazole due CKD. Patient denies melena, hematochezia, unintentional weight loss or ribbon like stools. Otherwise patient reports that she has fair appetite, however feels little weak. Will need to recheck her lab work again. August and September labs mild anemia. Patient continues to eat food high in iron however unable to take supplements due to severe abdominal discomfort. Laboratory Tests 09/09/24 09/29/24 09:40 07:48 RBC 4.36 3.92 L Hgb 11.7 L 10.6 L Hct 37.3 34.0 L MCV 85.6 86.7 ? [facility] Medical History (Reviewed 11/11/24 @ 08:42 by John Cornelius [facility]) Chronic kidney disease, stage 4 (severe) Chronic kidney disease, stage III (moderate) Atrophic vaginitis Orbital fracture Upper GI bleeding Hearing impairment Seizure Recurrent urinary tract infection Overweight (BMI 25.0-29.9) Vitamin D deficiency Allergic rhinitis Meralgia paresthetica of right side Anemia GERD without esophagitis Asthma Hyperkalemia Diabetic polyneuropathy associated with type 2 diabetes mellitus Peripheral vascular disease Pure hypercholesterolemia Benign essential hypertension Carotid atherosclerosis Coronary artery disease (~06/09/21) Type 2 diabetes mellitus with diabetic polyneuropathy Surgical History (Reviewed 11/11/24 @ 08:42 by John Cornelius [facility]) Hx of colonoscopy History of endoscopy S/P CABG x 4 (~06/09/21) History of cardiac catheterization (~12/2023) History of left-sided carotid endarterectomy S/P LASIK surgery History of right-sided carotid endarterectomy History of laparoscopic cholecystectomy Family History Father CVD (cardiovascular disease) Mother Stroke Brother CVD (cardiovascular disease) Esophageal cancer Social History Household Members: Children Housing: House Are you a primary healthcare insurance sales agent to a significant other at home: No Do you presently have visiting nurse or other home services: No Alcohol intake: never Comment: cardiac Patient Tobacco Use Status: Former Tobacco user Tobacco use type: Cigarette e-Cigarette/Vaping Use: Never Used Second Hand Smoke Exposure: No Advance Directives Date on File: 01/11/22 service: No Current occupational status: retired 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 Cognitive needs: No Hearing needs: No Vision needs: No Review of Systems Const Denies weight gain and Denies weight loss ENT Reports no additional complaints, Reports dysphagia and Denies odynophagia Card Reports no additional complaints Resp Reports no additional complaints GI Denies abdominal pain, Denies belching, Denies melena, Denies bloating, Denies change in bowel habits, Reports dysphagia, Denies excessive flatus, Denies dyspepsia, Reports heartburn, Denies diarrhea, Denies loose stools, Denies nausea, Denies odynophagia and Denies vomiting Reports no additional complaints Musc Reports no additional complaints Neuro Reports no additional complaints Psych Reports no additional complaints Endo Reports no additional complaints Physical Exam Vital Signs: Last Vital Signs Pulse 60 11/11/24 08:43 BP 152/48 H 11/11/24 08:43 Pulse Ox 97 11/11/24 08:43 Oxygen Delivery Method Room Air 11/11/24 08:43 BMI result Body Mass Index 28.9 Const General: healthy appearing and no acute distress Nutritional Appearance: obese Orientation/consciousness: patient oriented x3 Resp Effort & Inspection: normal respiratory effort, able to speak in complete sentences, no tracheal deviation and symmetric chest movement Auscultation: clear to auscultation bilaterally Cardio Rate: regular rate GI Inspection: Yes normal to inspection, No distended and Yes obesity Palpation (GI): Soft to palpation, not firm, nontender and No hepatosplenomegaly present Auscultation: normal bowel sounds General: Yes no CVA tenderness Back/Spine/Pelvis Back: no CVA tenderness Skin General skin exam: elasticity normal, turgor normal and dry skin Neuro General: patient oriented x3 Psych Appearance: grossly normal Mental Status: mental status grossly normal Assessment & Plan Assessment & Plan (1) Anemia: Code(s): D64.9 - Anemia, unspecified Category: Medical Qualifiers: Anemia type: unspecified type Qualified Code(s): D64.9 - Anemia, unspecified (2) GERD (gastroesophageal reflux disease): Code(s): K21.9 - Gastro-esophageal reflux disease without esophagitis Qualifiers: Esophagitis presence: esophagitis presence not specified Qualified Code(s): K21.9 - Gastro-esophageal reflux disease without esophagitis (3) Postprandial diarrhea: Code(s): K52.9 - Noninfective gastroenteritis and colitis, unspecified (4) Swollen lymph nodes: Code(s): R59.9 - Enlarged lymph nodes, unspecified Plan Patient does reports swollen lymph nodes, sore throat and trouble swallowing. Will send her for x-ray of her neck and barium swallow. CBC recheck as patient reports to be feeling tired. Continue pantoprazole and sucralfate, however will consider decreasing pantoprazole to 20 mg next visit. Patient is agreeable to this plan and verbalizes understanding of instructions. She was given the opportunity to ask questions and all questions answered. Thank you for allowing me to participate in her care Orders: Orders Complete Blood Count no Diff 11/11/24 K21.9 - Gastro-esophageal reflux disease without esophagitis, D64.9 - Anemia, unspecified XR soft tissue neck 11/11/24 R59.9 - Enlarged lymph nodes, unspecified FL barium swallow 11/11/24 R13.10 - Dysphagia, unspecified Medications: Refilled pantoprazole 40 mg PO DAILY 90 tabs 3RF K21.9 - Gastro-esophageal reflux disease without esophagitis sucralfate 1 g PO BEDTIME 90 tabs 3RF 30 days Coding Level of Care Code Est Pt Level 4 (89545) Complex EM visit Add On G2211 Diagnoses Anemia, unspecified type D64.9 Anemia type: unspecified type Gastroesophageal reflux disease, unspecified whether esophagitis present K21.9 Esophagitis presence: esophagitis presence not specified Postprandial diarrhea K52.9 Swollen lymph nodes R59.9 Time Spent (min) 35 Comment 20 minutes spent with patient and additional 15 minutes spent reviewing her records
[2024-11-11 08:43] VITALS: BP 152/48; PULSE 60; O2SAT 97; BMI 28.9
== END 2024-11-11 09:24 | disposition home or self-care (01) ==
LOC: HO.HGI 08:28
PROVIDERS: PCP Internal Medicine; Visit Provider Nurse Practitioner Family
DX: D64.9 Anemia, unspecified (principal); K21.9 Gastro-esophageal reflux disease without esophagitis; K52.9 Noninfective gastroenteritis and colitis, unspecified; R59.9 Enlarged lymph nodes, unspecified
CPT/HCPCS: 99214; G2211

== ENCOUNTER 2024-11-11 08:27 | Outpatient (REF) | payer MEDICARE, OTHER, SELFPAY ==
--- NOTE | ~2024-11-11 | XR_ITS ---
EXAMINATION: XR NECK SOFT TISSUE HISTORY: K22.2 - Esophageal obstruction COMPARISON: Correlation is made with a CT of the cervical spine dated 08/02/2023. FINDINGS: AP and lateral views of the soft tissues of the neck are submitted. The epiglottis and aryepiglottic folds are unremarkable in appearance. The airway is patent. There is no prevertebral soft tissue swelling. There is a prevertebral calcification at the C3 level which appears to be related to the internal carotid artery. Multiple surgical clips are noted in the neck. XR/XR soft tissue neck IMPRESSION: Unremarkable examination of the soft tissues of the neck. Electronically signed by: Aquiles Childs MD 11/12/2024 07:52 AM EDT
[2024-11-11 10:41] LABS: Hematocrit 36.7 % (37.0-47.0); Mean Corpuscular HGB Conc 32.7 g/dl (31.0-35.0); Mean Corpuscular Hemoglobin 27.5 pg (27.0-33.0); Mean Corpuscular Volume 84.2 fL (80.0-98.0); Mean Platelet Volume 8.6 fL (9.4-12.3); Platelet Count 296 X10*3/uL (160-400); Red Blood Count 4.36 X10*6/uL (4.20-5.50); Red Cell Distribution Width 14.6 % (11.0-16.0); White Blood Count 7.3 X10*3/uL (4.8-10.8)
[2024-11-11 11:19] LABS: Anion Gap 11 (12-20); Carbon Dioxide 28 mmol/L (22-29); Chloride 109 mmol/L (96-108); Estimated Glomerular Filt Rate 34; Sodium 144 mmol/L (135-145)
== END 2024-11-11 08:28 | disposition home or self-care (01) ==
LOC: HO.XRAY 08:27
PROVIDERS: Internal Medicine Hypertension Specialist; Absent Provider Internal Medicine; PCP Internal Medicine; Visit Provider Nurse Practitioner Family
DX: D64.9 Anemia, unspecified (principal); K21.9 Gastro-esophageal reflux disease without esophagitis; K52.9 Noninfective gastroenteritis and colitis, unspecified; R59.9 Enlarged lymph nodes, unspecified; R13.10 Dysphagia, unspecified
CPT/HCPCS: 36415; 70360; 80051; 82565; 85027; 99212

== ENCOUNTER → 2024-11-11 09:50 | Outpatient (BNV) | payer MEDICARE, OTHER, SELFPAY | PROVIDERS: Absent Provider Internal Medicine; PCP Internal Medicine; Visit Provider Radiology Diagnostic Radiology | DX: K22.2 Esophageal obstruction (principal) | CPT/HCPCS: 70360 ==

== ENCOUNTER 2024-12-18 07:37 | Outpatient (REF) | payer MEDICARE, OTHER, SELFPAY ==
--- NOTE | ~2024-12-18 | FL_ITS ---
EXAMINATION: XR BARIUM SWALLOW CLINICAL INFORMATION: Dysphagia COMPARISON: Ultrasound abdomen 08/17/[address] cervical spine 08/02/2023. TECHNIQUE: Routine barium swallow was performed with thick barium and barium coated saltine crackers as solid food coated with barium in upright view. FINDINGS: Following oral administration of thick barium in upright view there is normal propagation of bolus from the oral cavity into the pharynx and esophagus. The bolus in the pharynx traverses predominantly from the right side suspicious for an extrinsic mass along the left pharynx. This also results in mild to moderate retention of barium within the right valleculae. The left relatively is shallow. On oral administration of sulci crackers coated barium there is normal oral mastication with propagation of bolus predominantly from the right side of the pharynx. There is a suspicion for left extrinsic pharyngeal mass. Correlate with CT neck is recommended. Patient had a history of esophageal ulcer treated in the past. There are median sternotomy sutures and mediastinal dusty from previous CABG. FLUOROSCOPY TIME: 2 minutes 20 seconds DOSE AREA PRODUCT: 883.6. 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 Differential diagnosis includes a recurrent mass, scar from previous surgery for ulceration or lymph node. Correlate with CT neck with contrast There is mild retention of barium in the right valleculae. The left valleculae is shallow. Rest of the barium swallow is unremarkable. Electronically signed by: Dennys Bustillo MD 12/18/2024 10:11 AM EDT
--- OUTSIDE RECORDS SUMMARY | 2024-12-18 07:39 | XMS_ITS | Clinical Summary ---
Author Organization [facility], Address [address] [place] [address] Phone Care Team Providers Care Sr. Payroll Manager Name Role Phone Jimmy Awan MD Primary Care Provider [phone] Allergies Active Allergy Reactions Criticality Noted Date [...] Due Date Last Done Comments Pneumococcal Vaccine: 50+ Ye ars (1 of 1 - PCV) 1992 Diabetes: Hemoglobin A1C 07/22/2021 Diabetes: Ophthalmology Exam 07/22/2021 Diabetes: Pedal Pulse Checked 07/22/2021 Diabetes: Sensory Foot Exam 07/22/2021 Diabetes: Visual Foot Exam 07/22/2021 Influenza Vaccine (Season Ended) 2025 Hepatitis B Vaccine Aged Out No longe r eligible based on patient's age to complete this topic Insurance Medicare [facility] Care Teams Sr. Payroll Manager Relationship Specialty Start Date End Date Jimmy Awan MD [address] [place] [address] PCP - General Internal Medicine 07/28/21
--- OUTSIDE RECORDS SUMMARY | 2024-12-18 07:39 | XMS_ITS | Clinical Summary ---
Author Organization [address] [place] [address] [place] [address] Phone Care Team Providers Care Mat Inspector Name Role Phone Jimmy Awan MD Primary Care Provider [phone] Allergies Active Allergy Reactions Criticality Noted Date Comments Doxycycline 08/01/2021 Hydrocortisone Rash 03/01/2022 Levetiracetam 08/01/2021 Milk Containing Products (Dairy) Mold 03/01/2022 Penicillins 10/28/2020 Prednisone 10/28/2020 Medications glyBURIDE (DIABETA) 5 mg tablet Take 1 tablet (5 mg total) by mouth 1 (one) time each day with breakfast. Active dapagliflozin propanediol (FARXIGA) 10 mg tablet Take 1 tablet (10 mg total) by mouth 1 (one) time each day. Active nitroglycerin (NITROSTAT) 0.[address] 1 tablet (0.3 mg total) under the tongue every 5 (five) minutes if needed. 11/09/2023 Active atorvastatin (LIPITOR) 80 mg tablet Take [...] 24 hr tabletIndication s:Coronary artery disease of [place] artery of [place] heart with stable angina pectoris ([facility] V24) Take 1 tablet (30 mg total) by mouth 1 (one) time each day. Do not crush or chew. 90 each 1 09/12/2024 Active bempedoic acid (Nexletol) 180 mg tablet TAKE 1 TABLET BY MOUTH DAILY 30 tablet 6 10/17/2024 Active Active Problems Problem Noted Date Diagnosed Date Angina pectoris ([facility] V24) 03/01/2022 Overview (07/15/2024): post CABG Diabetes 1.5, managed as type 2 ([facility] V24, CM S/HCC V28) 08/01/2021 Seizure disorder ([facility] V24, [facility] V28) 07/20 Hx of CABG 06/22/2021 Assessment & Plan (09/12/2024 6:55 PM EST): FRANKLIN (dyspnea on exertion) 06/22/2021 Carotid artery occlusion 06/21/2021 Overview (07/15/2024): Last Assessment & Plan: The patient continues to follow with vascular surgery as recommended. Old myocardial infarction 06/21/2021 Assessment & Plan (09/12/2024 6:55 PM EST): Type 2 diabetes mellitus ([facility] V24, [facility] V 28) 06/21/2021 Coronary artery disease of n ative heart with stable angina pectoris ([facility] V24) 10/28/2020 Overview (07/15/2024): Last Assessment & Plan: [...] PCPs office for review. Peripheral vascular disease (CMS/[facility] V24) 2020 Overview (07/15/2024): Last Assessment & Plan: Follows with Dr. Jesus at [facility] Assessment & Plan (09/12/2024 6:55 PM [...] will attempt to obtain this for review. Surgical History Surgery Date Site/Laterality Comments BLADDER [...] site debridement BYPASS GRAFT 09/10/2013 Left PROCEDURE: FL AMPUTATION TOE METATARSOPHALANGEAL JOINT; COMMENT: 2nd toe CARDIAC CATHETERIZATION 07/02/2013 PROCEDURE: HISTORICAL CARDIAC CATH OTHER SURGICAL HISTORY 02/18/2013 PROCEDURE: FL CORONARY ENDARTERCOMY OPEN ANY METHOD OTHER SURGICAL HISTORY 02/18/2013 PROCEDURE: FL BYPASS W/VEIN FEMORAL-FEMORAL OTHER SURGICAL HISTORY 07/31/2012 PROCEDURE: HISTORY OTHER; COMMENT: Right carotid endarterectomy with patch angioplasty reconstruction CARDIAC CATHETERIZATION 05/21/2012 PROCEDURE: HISTORICAL CARDIAC CATH CHOLECYSTECTOMY PROCEDURE: HISTORICAL CHOLECYSTECTOMY Medical History Medical History Date Comments Fall 03/01/2022 DX:Fall Hematemesis DX:Hematemesis Left orbit fracture ([facility] V24, [facility] V28) DX:Left orbit fracture ([facility]) Upper GI bleed DX:Upper GI blee d Hemorrhagic shock ([facility] V 24, [facility] V28) DX:Hemorrhagic shock ([facility]) Acute kidney injury superimp osed on CKD ([facility] V24) DX:Acute kidney injury super imposed on CKD ([facility]) Hyponatremia DX:Hyponatremia Delirium DX:Delirium UTI (urinary tract infection) DX :UTI (urinary tract infection) Anemia DX:Anemia Claudication ([facility] V24) DX:Cl audication ([facility]) COPD (chronic obstructive pu lmonary disease) ([facility] V24, [facility] V28) DX:COPD (chronic o bstructive pulmonary disease) ([facility]) 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 ([facility] V 24, [facility] V28) DX: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 ([facility]) GERD (gastroesophageal reflu x disease) DX:GERD (gastroesophageal re flux disease) Hard of hearing DX:Hard of heari ng Neck strain DX:Neck strain Obesity DX:Obesity PONV (postoperative nausea a nd vomiting) DX:PONV (postoperative nause a and vomiting) Toe ulcer ([facility] V24, [facility] V28) DX:Toe ulcer ([facility]) Family History Medical History Relation Name Comments [...] Description 2024 11:10 AM EDT Office Visit [facility] [address] [facility] [address] [place] [address] Clemencia Aviles NP [address] [place] [address] Health Maintenance Due Date Last Done Comments Diabetes: Annual GFR (Glomerular Filtration Rate) 1942 Diabetes: Annual Foot Exam 1952 Diabetes: Annual Retina Eye Exam 1952 Pneumococcal Vaccine: 50+ Years (1 of 2 - PCV) 1961 Zoster Vaccines (1 of 2) 1992 RSV Immunization Adult Patients (1 - 1-dose 75+ series) 2017 Cholesterol Screening (Lipid Panel) 07/18/2022 Depression Screening 07/18/2022 Falls Risk Assessment 07/18/2022 Medicare Annual Wellness Visit 07/18/2022 Osteoporosis Screening (Bone Density Screening) 07/18/2022 Social Influencers of Health Screening 07/18/2022 Diabetes: Annual Urine Albumin-Creatinine Ratio (uACR) 07/27/2022 Diabetes: Blood Sugar Control Test (HGBA1C) 07/27/2022 Hypertension/CHF/CAD Annual BMP Blood Test 07/27/2022 COVID-19 Vaccine ( season) 2024 08/29/2021, 10/21/2020, [...] age to complete this topic Meningococcal B Vaccine Aged Out No l onger eligible based on patient's age to complete this topic RSV Immunization Patients Under 20 months Aged Out No longer eligible based on patient's age to complete this topic Varicella Vaccines Aged Out No longer eligible based on patient's age to complete this topic Insurance MEDICARE [facility] Care Teams Mat Inspector Relationship Specialty Start Date End Date Jimmy Awan MD [address] [facility] [address] [place] PCP - General 05/21/12
--- OUTSIDE RECORDS SUMMARY | 2024-12-18 07:39 | XMS_ITS | Data Portability ---
Author Organization [facility] [employer] Address [address] [place] [place] [address] Care Team Providers Care Sales Project Coordinator Name Role Phone GAURAV ROMAN Referring Provider [phone] LILIANA GREEN OTHER Assessment Encounter Date Assessment [...] contr ast No observ ation record ed. [address] [facility] [address] [place], [address], 10/17/2021 14:29:22 Result Notes None recorded. Procedures Surgical History Date Name Laterality Status Provider Name and Address Organization Details Recorded Time 10/13/2021 DATA REVIEW completed Antony Hernandez MD [address] [place] [address] [place], [address], [facility] [employer] 10/13/2021 17:40:07 Imaging Results Imaging Date Name Status LastModified by Organiz ation Details LastModified Time 10/13/2021 CT, head, w/o contrast completed [address] [facility] ([facility]) [address], [place], [address], 10/17/2021 14:29:22 Procedure Notes None recorded. Medical Equipment None Reported. Allergies Allergen ID Allergen Name Allergen Category Reaction Reaction Severity Criticality Documentation Date Start Date Code Code System Note Provider Name and Address Organization Details Recorded Time 1213 Product containin g penicilli n (product) medicatio n Not available Not available Not available 10/13/2021 83458 8001 SNOMED [place] [facility] 2 11:19:23 1214 doxycycli ne Not available Not available Not available Not available 10/13/2021 3640 RxNorm [place] [facility] 2 11:22:18 1215 Keppra medicatio n Not available Not available Not available 10/13/2021 88531 7 [facility] [place] [facility] 2 11:22:28 Medications Name Sig Start [...] Updated DateTime 10/13/2021 157.48 cm 27.1 kg/m2 17567.67 g 12 /min [facility] 10/13/2021 11:18:56 Social History Question Answer Notes LastModified by Organizat ion Details LastModified Time Tobacco Smoking Status Former Smoker [facility] null, [facility] 10/13/2021 11:24:52 What Is Your Level Of Alcohol Consumption? None Information not available 10/13/2021 What Is Your Level Of Caffeine Consumption? Occasional Information not available 10/13/2021 What Is The Highest Grade Or Level Of School You Have Completed Or The Highest Degree You Have Received? [id number] Information not available 10/13/2021 Which Of Your [...] Code Diagnosis Note 4064 Antony Hernandez MD [facility] [address] [address] [place] [address] 10/13/2021 10:47:12 10/17/2021 07:47:44 Complex partial seizure with impairment of consciousness 2144880 G40.209 Generalize d-onset seizures 1963512 G40.309 Acute cere brovascular insufficiency 67302157 I67.81 Health Concerns Section Related Observation LastModified by Organization Detai ls LastModified Time None Recorded Concern Status LastModified by Organization Details LastModified Time None Recorded Advance Directives Directive None Recorded Payers Encounter Date Sequence Insurance Name Policy Number Policy Jamil Covered Member ID Jamil Member ID Guarantor Name 10/13/2021 1 MEDICARE [place]: [employer] Jermain Gonzales [id number] Jermain Gonzales 10/13/2021 2 [facility] [id number] Jermain Gonzales [id number] Jermain Gonzales Notes Date Note Type Note [...] causing suspicion for seizure. Antony Hernandez MD [address] [place] [address] [place], [address], [facility] [employer] 10/13/2021 17:43:39 OBGyn Episode No OBEpisode recorded.
== END 2024-12-18 07:38 | disposition home or self-care (01) ==
LOC: HO.XRAY 07:37
PROVIDERS: PCP Internal Medicine; Visit Provider Nurse Practitioner Family
DX: R13.10 Dysphagia, unspecified (principal)
CPT/HCPCS: 74220

== ENCOUNTER → 2024-12-18 08:00 | Outpatient (BNV) | payer MEDICARE, OTHER, SELFPAY | PROVIDERS: PCP Internal Medicine; Visit Provider Radiology Diagnostic Radiology | DX: J39.2 Other diseases of pharynx (principal); R13.10 Dysphagia, unspecified | CPT/HCPCS: 74220 ==

== ENCOUNTER 2024-12-24 08:50 | Outpatient (REF) | payer MEDICARE, OTHER, SELFPAY ==
[2024-12-24 09:10] LABS: MANUAL DIFF FLAG NO
--- OUTSIDE RECORDS SUMMARY | 2024-12-24 09:17 | XMS_ITS | Clinical Summary ---
Author Organization [address] [place] [address] [place] [phone] Phone Care Team Providers Care Furnace Puncher Name Role Phone Jimmy Awan MD Primary [...] 24 hr tabletIndication s:Coronary artery disease of [place] artery of [place] heart with stable angina pectoris ([facility] V24) Take 1 tablet (30 mg total) by mouth 1 (one) time each day. Do not crush or chew. 90 each 1 09/12/2024 Active bempedoic acid (Nexletol) 180 mg tablet TAKE 1 TABLET BY MOUTH DAILY 30 tablet 6 10/17/2024 Active Active Problems Problem Noted Date Diagnosed Date Angina pectoris ([facility] V24) 03/01/2022 Overview (07/15/2024): post CABG Diabetes 1.5, managed as type 2 ([facility] V24, CM S/HCC V28) 08/01/2021 Seizure disorder ([facility] V24, [facility] V28) 07/20 Hx of CABG 06/22/2021 Assessment & Plan (09/12/2024 6:55 PM EST): FRANKLIN (dyspnea on exertion) 06/22/2021 Carotid artery occlusion 06/21/2021 Overview (07/15/2024): Last Assessment & Plan: The patient continues to follow with vascular surgery as recommended. Old myocardial infarction 06/21/2021 Assessment & Plan (09/12/2024 6:55 PM EST): Type 2 diabetes mellitus ([facility] V24, [facility] V 28) 06/21/2021 Coronary artery disease of n ative heart with stable angina pectoris ([facility] V24) 10/28/2020 Overview (07/15/2024): Last Assessment [...] PCPs office for review. Peripheral vascular disease ([facility] V24) 2020 Overview (07/15/2024): Last Assessment & Plan: Follows with Dr. Jesus at [facility] Assessment & Plan (09/12/2024 6:55 PM EST): [...] site debridement BYPASS GRAFT 09/10/2013 Left PROCEDURE: UT AMPUTATION TOE METATARSOPHALANGEAL JOINT; COMMENT: 2nd toe CARDIAC CATHETERIZATION 07/02/2013 PROCEDURE: HISTORICAL CARDIAC CATH OTHER SURGICAL HISTORY 02/18/2013 PROCEDURE: UT CORONARY ENDARTERCOMY OPEN ANY METHOD OTHER SURGICAL HISTORY 02/18/2013 PROCEDURE: UT BYPASS W/VEIN FEMORAL-FEMORAL OTHER SURGICAL HISTORY 07/31/2012 PROCEDURE: HISTORY OTHER; COMMENT: Right carotid endarterectomy with patch angioplasty reconstruction CARDIAC CATHETERIZATION 05/21/2012 PROCEDURE: HISTORICAL CARDIAC CATH CHOLECYSTECTOMY PROCEDURE: HISTORICAL CHOLECYSTECTOMY Medical History Medical History Date Comments Fall 03/01/2022 DX:Fall Hematemesis DX:Hematemesis Left orbit fracture ([facility] V24, [facility] V28) DX:Left orbit fracture ([facility]) Upper GI bleed DX:Upper GI blee d Hemorrhagic shock ([facility] V 24, [facility] V28) DX:Hemorrhagic shock ([facility]) Acute kidney injury superimp osed on CKD ([facility] V24) DX:Acute kidney injury super imposed on CKD ([facility]) Hyponatremia DX:Hyponatremia Delirium DX:Delirium UTI (urinary tract infection) DX :UTI (urinary tract infection) Anemia DX:Anemia Claudication ([facility] V24) DX:Cl audication ([facility]) COPD (chronic obstructive pu lmonary disease) ([facility] V24, [facility] V28) DX:COPD (chronic o bstructive pulmonary disease) ([facility]) 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 ([facility] V 24, [facility] V28) DX: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 ([facility]) GERD (gastroesophageal reflu x disease) DX:GERD (gastroesophageal re flux disease) Hard of hearing DX:Hard of heari ng Neck strain DX:Neck strain Obesity DX:Obesity PONV (postoperative nausea a nd vomiting) DX:PONV (postoperative nause a and vomiting) Toe ulcer ([facility] V24, [facility] V28) DX:Toe ulcer ([facility]) Family History Medical History Relation Name [...] Description 2024 11:10 AM EDT Office Visit [facility] [address] [place] [address] Clemencia Aviles NP [address] [place] [address] Health Maintenance Due Date Last Done Comments [...] age to complete this topic Insurance MEDICARE [facility] Care Teams Furnace Puncher Relationship Specialty Start Date End Date Jimmy Awan MD [address] [facility] [address] [place] PCP - General 05/21/12
--- OUTSIDE RECORDS SUMMARY | 2024-12-24 09:17 | XMS_ITS | Data Portability ---
Author Organization [facility] [employer] Address [address] [place] [address] Care Team Providers Care Glass Designer Name Role Phone GAURAV ROMAN Referring Provider [...] contr ast No observ ation record ed. [address] [facility] [address] [place], [address], 10/17/2021 14:29:22 Result Notes None recorded. Procedures Surgical History Date Name Laterality Status Provider Name and Address Organization Details Recorded Time 10/13/2021 DATA REVIEW completed Antony Hernandez MD [address] [place] [address] [place], [phone], Formerly [facility] 10/13/2021 17:40:07 Imaging Results Imaging Date Name Status LastModified by Organiz ation Details LastModified Time 10/13/2021 CT, head, w/o contrast completed [address] [facility] ([facility]) [address], [place], [address], 10/17/2021 14:29:22 Procedure Notes None recorded. Medical Equipment None Reported. Allergies Allergen ID Allergen Name Allergen Category Reaction Reaction Severity Criticality Documentation Date Start Date Code Code System Note Provider Name and Address Organization Details Recorded Time 1213 Product containin g penicilli n (product) medicatio n Not available Not available Not available 10/13/2021 63037 8001 SNOMED [place] [facility] 2 11:19:23 1214 doxycycli ne Not available Not available Not available Not available 10/13/2021 3640 [facility] [place] [facility] 2 11:22:18 1215 Keppra medicatio n Not available Not available Not available 10/13/2021 37071 7 [facility] [place] [facility] 2 11:22:28 Medications Name Sig Start [...] Updated DateTime 10/13/2021 157.48 cm 27.1 kg/m2 52655.67 g 12 /min [facility] 10/13/2021 11:18:56 Social History Question Answer Notes LastModified by Organizat ion Details LastModified Time Tobacco Smoking Status Former Smoker [facility] null, [facility] 10/13/2021 11:24:52 What Is Your Level Of Alcohol Consumption? None Information not available 10/13/2021 What Is Your Level Of Caffeine Consumption? Occasional Information not available 10/13/2021 What Is The Highest Grade Or Level Of School You Have Completed Or The Highest Degree You Have Received? [id number] Information not available 10/13/2021 Which Of Your [...] 11:23:37 Medical History Condition Response Diabetes Y Asthma Y COPD or emphysema Y Heartburn, acid reflux, GERD Y High Cholesterol or Hyperlipidemia Y Gynecological HistoryNo gynecological history recorded. Obstetrics History GPAL:G 0 P 0 0 0 0 Past Encounters Encounter ID Performer Location Encounter Start Date Encounter Closed Date Diagnosis/Indication Diagnosis SNOMED-CT Code Diagnosis ICD10 Code Diagnosis Note [id number] Antony Hernandez MD [facility] [address] [place] [address] [place] [address] 10/13/2021 10:47:12 10/17/2021 07:47:44 Complex partial seizure with impairment of consciousness 1851645 G40.209 Generalize d-onset seizures 0357718 G40.309 Acute cere brovascular insufficiency 39905072 I67.81 Health Concerns Section Related Observation LastModified by Organization Detai ls LastModified Time None Recorded Concern Status LastModified by Organization Details LastModified Time None Recorded Advance Directives Directive None Recorded Payers Encounter Date Sequence Insurance Name Policy Number Policy Jamil Covered Member ID Jamil Member ID Guarantor Name 10/13/2021 1 MEDICARE [place]: [employer] Jermain Gonzales [id number] Jermain Gonzales 10/13/2021 2 [facility] [id number] Jermain Gonzales [id number] Jermain Gonzales Notes Date Note Type Note [...] causing suspicion for seizure. Antony Hernandez MD [address] [place] [address] [place], [phone], [facility]ly [facility] 10/13/2021 17:43:39 OBGyn Episode No OBEpisode recorded.
--- OUTSIDE RECORDS SUMMARY | 2024-12-24 09:17 | XMS_ITS | Clinical Summary ---
Author Organization [facility], Address [address] [facility] [place] [address] Phone Care Team Providers Care Restaurant Busser Name Role Phone Jimmy Awan MD Primary Care Provider [phone] Allergies Active Allergy Reactions Criticality Noted Date [...] age to complete this topic Insurance Medicare [facility] Care Teams Restaurant Busser Relationship Specialty Start Date End Date Jimmy Awan MD [address] [place] [address] PCP - General Internal Medicine 07/28/21
[2024-12-24 09:30] LABS: Basophils Percent Auto 0.4 % (0-2); Eosinophils Absolute Auto 0.1 X10*3/uL (0.0-0.4); Eosinophils Percent Auto 1.9 % (0-4); Hematocrit 35.6 % (37.0-47.0); Hemoglobin 11.8 g/dl (12.0-16.0); Imm Gran Abs Auto 0.03 X10*3/uL (0.00-0.03); Imm Gran Pct Auto 0.4 % (0.0-0.4); Lymphocytes Absolute Auto 0.7 X10*3/uL (1.2-4.9); Lymphocytes Percent Auto 10.5 % (20-40); Mean Corpuscular HGB Conc 33.1 g/dl (31.0-35.0); Mean Corpuscular Volume 84.4 fL (80.0-98.0); Mean Platelet Volume 8.3 fL (9.4-12.3); Monocytes Absolute Auto 0.5 X10*3/uL (0.1-1.2); Neutrophils Absolute Auto 5.6 x10*3/uL (2.0-8.3); Neutrophils Percent Auto 79.8 % (45-73); Platelet Count 276 X10*3/uL (160-400); Red Blood Count 4.22 X10*6/uL (4.20-5.50); Red Cell Distribution Width 14.6 % (11.0-16.0)
[2024-12-24 09:38] LABS: Appearance Urine Turbid; Color Urine Yellow; Glucose Urine UA >=1000 mg/dL (Negative); Leukocyte Esterase Urine Large (3+) (Negative); Nitrite Urine Negative (Negative); PH 5.5 (5.0-9.0); Specific Gravity - Urine 1.025 (1.005-1.025); UMIC TRIGGER UACC YES; Urine Blood Small (1+) (Negative); Urine Ketones Negative (Negative); Urine Protein 30 (1+) mg/dL (Neg-Trace)
[2024-12-24 09:52] LABS: Bacteria Urine 4+ (None Seen); Hyaline Casts Urine 0-2 /LPF (0-2); RBC Urine 0-2 /HPF (0-2); UACC Culture Trigger YES; WBC Urine >50 /HPF (0-5)
[2024-12-24 09:53] LABS: Blood Urea Nitrogen 27 mg/dL (9-16)
[2024-12-24 09:54] LABS: Estimated Average Glucose 137 mg/dL; Hemoglobin A1C 146.3274 umol/L; Hemoglobin A1c % 6.4 % (<6.0); Total Hemoglobin (HGBA1C) 3129.8939 umol/L
[2024-12-24 10:00] LABS: Alanine Aminotransferase 8 U/L (0-31); Albumin Level 3.8 g/dL (3.5-5.0); Alkaline Phosphatase 72 U/L (39-117); Anion Gap 14 (12-20); Aspartate Amino Transferase 19 U/L (5-31); Bilirubin Total 0.4 mg/dL (0.0-1.0); Blood Urea Nitrogen 27 mg/dL (9-16); Calcium 8.9 mg/dL (8.4-10.2); Carbon Dioxide 26 mmol/L (22-29); Chloride 107 mmol/L (96-108); Cholesterol 135 mg/dL (<200); Estimated Glomerular Filt Rate 33; Glucose Fasting 112 mg/dL (60-99); Glucose Random 112 mg/dL (60-115); HDL Cholesterol 32 mg/dL (>40); LDL Cholesterol Calculated 70 mg/dL (<100); Potassium 4.3 mmol/L (3.3-5.1); Sodium 143 mmol/L (135-145); Total Protein 6.4 g/dL (6.5-8.0); Triglycerides 166 mg/dL (<150)
[2024-12-24 10:01] LABS: Creatinine Urine 73.74 mg/dL; Microalbum/Creatinine Ratio Ur 58.3 ug/mg cr (<30)
[2024-12-24 10:10] LABS: TSH reflex Free T4 1.56 uIU/mL (0.32-4.0); Vitamin D 25-OH Total 52.7 ng/mL (>30)
[2024-12-24 10:26] LABS: Folate 7.9 ng/mL (> or = 4.0); Vitamin B12 555 pg/mL (200-900)
== END 2024-12-24 08:51 | disposition home or self-care (01) ==
LOC: HO.LAB 08:50
PROVIDERS: Absent Provider Internal Medicine; PCP Internal Medicine; Referring Provider Internal Medicine Hypertension Specialist; Visit Provider Nurse Practitioner Family
DX: E78.00 Pure hypercholesterolemia, unspecified (principal); E11.9 Type 2 diabetes mellitus without complications; E53.8 Deficiency of other specified B group vitamins; D64.9 Anemia, unspecified; E55.9 Vitamin D deficiency, unspecified; N18.32 Chronic kidney disease, stage 3b; R10.11 Right upper quadrant pain
CPT/HCPCS: 36415; 80048; 80053; 80061; 81001; 82043; 82306; 82570; 82607; 82746; 83036; 84443; 84520; 85025; 87086; 87088; 87186

== ENCOUNTER 2024-12-30 09:16 | Outpatient (AMB) | payer MEDICARE, OTHER, SELFPAY ==
[2024-12-30 09:19] VITALS: BP 132/60; PULSE 57; O2SAT 95; BMI 28.0
--- NOTE | 2024-12-30 09:19 | A.OFFPC_ITS ---
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: No Accompanied by: Self / Same As Patient Allergies evolocumab [From Repatha SureClick] Allergy (Intermediate, Verified 12/30/24 09:52) Hives doxycycline Allergy (Mild, Verified 12/30/24 09:52) Vomiting levetiracetam [From Keppra] Allergy (Mild, Verified 12/30/24 09:52) Vomiting amoxicillin Allergy (Unknown, Verified 12/30/24 09:52) rash Penicillins Allergy (Unknown, Verified 12/30/24 09:52) rash prednisone Allergy (Unknown, Verified 12/30/24 09:52) rash ceftriaxone [From Rocephin] Allergy (Verified 12/30/24 09:52) Rash milk Allergy (Verified 12/30/24 09:52) Unknown omeprazole Adverse Reaction (Unknown, Verified 12/30/24 09:52) worsening heartburn ranitidine Adverse Reaction (Unknown, Verified 12/30/24 09:52) worsening heartburn, abdominal pain (ONLY to generic) Medication List - Last Reconciled 12/30/24 by Jimmy Awan MD albuterol sulfate 2.5 mg (3 mL) inhalation QID PRN albuterol sulfate 90 mcg/actuation 2 puffs inhalation Q6H PRN 30 days atorvastatin 80 mg PO BEDTIME 90 days bempedoic acid (Nexletol) 180 mg PO DAILY blood sugar diagnostic (FreeStyle Lite Strips) As directed- to test blood sugar TID cholecalciferol (vitamin D3) 50 mcg PO DAILY 90 days clopidogrel 75 mg PO DAILY 90 days dapagliflozin propanediol 10 mg PO DAILY glyburide 5 mg in AM and 2.5 mg in PM orally BID 90 days isosorbide mononitrate ER 30 mg PO DAILY lancets (FreeStyle Lancets) As directed once a day latanoprost 0.005% 1 drp ophthalmic (eye) BEDTIME loratadine 10 mg PO DAILY PRN 90 days NS metoprolol succinate ER 50 mg PO DAILY nitroglycerin mg sublingual ondansetron 4 mg PO Q8H PRN 15 days oxycodone-acetaminophen 5-325 mg 1 tab PO TID PRN pantoprazole 40 mg PO DAILY sucralfate 1 g PO BEDTIME 30 days triamcinolone acetonide 0.1% 1 appl topical BID Tobacco use date assessed: 12/30/24 Fall risk assessment: No Falls in past year Last assessed Fall Risk: 12/30/24 Dental Screening Dental Screen Date: 12/30/24 Did you have a dental visit in the last 12 months?: Yes Did you have a dental problem in the last 6 months where you did not have access to dental care?: No Was dental information given to patient?: Patient has dentist HPI Follow Up HPI Details Patient comes in today for her follow up visit States that she is still experiencing recurrent pain over the left side of her neck and over her left jaw - states that this has been going on for a few months now Adds that she has trouble swallowing as a result and she has lost a lot of weight since her last visit She had a soft tissue x-rays done a couple of months ago, which was unrevealing A barium swallow done earlier this month revealed (+) 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 along the left pharynx and most of the bolus traversing the right side of the pharynx She has been referred for a neck CT for further evaluation and she is scheduled to have this done next week States that the Oxycodone Rx that we provided her with last week has helped her a lot in the meantime She denies any headaches or dizziness Denies any chest pains, no increased SOB No nausea/vomiting, no abdominal pain No change in bowel habits noted Needs her Ondansetron Rx refilled She had her follow up labs done last week - to discuss her results [facility] Medical History Chronic kidney disease, stage 4 (severe) Chronic kidney disease, stage III (moderate) Atrophic vaginitis Orbital fracture Upper GI bleeding Hearing impairment Seizure Recurrent urinary tract infection Overweight (BMI 25.0-29.9) Vitamin D deficiency Allergic rhinitis Meralgia paresthetica of right side Anemia GERD without esophagitis Asthma Hyperkalemia Diabetic polyneuropathy associated with type 2 diabetes mellitus Peripheral vascular disease Pure hypercholesterolemia Benign essential hypertension Carotid atherosclerosis Coronary artery disease (~06/09/21) Type 2 diabetes mellitus with diabetic polyneuropathy Surgical History Hx of colonoscopy History of endoscopy S/P CABG x 4 (~06/09/21) History of cardiac catheterization (~12/2023) History of left-sided carotid endarterectomy S/P LASIK surgery History of right-sided carotid endarterectomy History of laparoscopic cholecystectomy Family History Father CVD (cardiovascular disease) Mother Stroke Brother CVD (cardiovascular disease) Esophageal cancer Social History Household Members: Children Housing: House Are you a primary menagerie caretaker to a significant other at home: No Do you presently have visiting nurse or other home services: No Alcohol intake: never Comment: cardiac Patient Tobacco Use Status: Former Tobacco user Tobacco use type: Cigarette e-Cigarette/Vaping Use: Never Used Second Hand Smoke Exposure: No Advance Directives Date on File: 01/11/22 service: No 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 1. Little interest or pleasure in doing things: not at all 2. Feeling down, depressed, or hopeless: not at all 3. Trouble falling or staying asleep, or sleeping too much: not at all 4. Feeling tired or having little energy: not at all 5. Poor appetite or overeating: not at all 6. Feeling bad about yourself - or that you are a failure or have let yourself or your family down: not at all 7. Trouble concentrating on things, such as reading the newspaper or watching television: not at all 8. Moving or speaking so slowly that other people could have noticed. Or the opposite - being so fidgety or restless that you have been moving around a lot more than usual: not at all 9. Thoughts that you would be better off or of hurting yourself in some way: not at all Total score: 0 Depression Screening Interpretation: Negative Depression Screening Done: Yes 64290 - PHQ-9 Billing: Yes Source: Developed by Drs. Aquiles Alford, Jay Jay Harley and colleagues, with an educational yessi from [employer]. Thrive Questionnaire Date Thrive assessed: 12/30/24 I am a: Patient What is your living situation today?: I have a steady place to live Within the past 12 months, did the food you bought not last and you didn't have the money to get more?: Never true Within the past 12 months, did you worry whether your food would run out before you got money to buy more?: Never true Do you have trouble paying for medicines?: Yes Do you have trouble getting transportation to medical appointments?: No Do you have trouble paying your heating and electricity bill?: I choose not to answer this question Do you have trouble taking care of your child, family member or friend?: No Do you have trouble with day-to-day activities such as bathing, preparing meals, shopping, managing finances, etc.?: Yes Are you currently unemployed and looking for a job?: No Are you interested in more education?: No Currently or been in a relationship where the following occur: No concerns reported THRIVE Score: 0 AUDIT C Alcohol Use Questionnaire (AUDIT-C) 1. How often do you have a drink containing alcohol?: Never 3. How often do you have six or more drinks on one occasion?: Never Total Score: 0 Score Reviewed/Action Taken: Yes GALILEA-7 AMB Questionnaire GALILEA-7 Date GALILEA - 7 assessed: 12/30/24 Feeling nervous, anxious, or on edge: 1 = Several days Not being able to stop or control worryin = Several days Worrying too much about different things: 1 = Several days Trouble relaxin = More than half the days Being so restless that it is hard to sit still: 0 = Not at all Becoming easily annoyed or irritable: 1 = Several days Feeling afraid as if something awful might happen: 0 = Not at all Total GALILEA-7 score (0-4 normal; 5-9 mild; 10-14 moderate; 15-21 severe): 6 Source: Developed by Yohana Roca Kurt Kroenke and colleagues, with an educational yessi from [employer]. Review of Systems Const Denies chills, Reports fatigue, Denies fever(s), Denies headache(s) and Reports weight loss ENT Details: (+) recurrent pain over the left side of the neck and over the left jaw area Reports dysphagia, Denies dizziness, Denies ear discharge, Reports otalgia (in the left ear, on and off - see HPI), Denies headache(s), Reports hearing loss, Reports neck pain (over the left side of the neck), Reports odynophagia and Denies sore throat Card Denies chest pain, Denies palpitations and Reports dyspnea on exertion (mild) Resp Denies chest congestion, Denies cough and Reports dyspnea on exertion (mild) GI Denies abdominal pain, Denies constipation, Reports dysphagia, Denies heartburn, Denies diarrhea, Denies nausea, Reports odynophagia and Denies vomiting Denies difficulty voiding, Denies nocturia and Denies dysuria Musc Denies back pain and Reports neck pain (over the left side of the neck) Skin/Breast Denies rash Neuro Denies dizziness and Denies headache(s) Endo Reports fatigue and Denies palpitations Physical exam (Primary Care) Vital Signs: Last Vital Signs Pulse 57 12/30/24 09:19 BP 132/60 12/30/24 09:19 Pulse Ox 95 12/30/24 09:19 Oxygen Delivery Method Room Air 12/30/24 09:19 BMI result Body Mass Index 28.0 Tobacco/Smoking Status: Tobacco use Status Tobacco use date assessed 12/30/24 12/30/24 09:22 Patient Tobacco Use Status Former Tobacco user 12/30/24 09:22 Tobacco use type Cigarette 12/30/24 09:22 e-Cigarette/Vaping Use Never Used 12/30/24 09:22 PHQ-9: PHQ-9 Score PHQ-9: Total score 0 12/30/24 09:22 Depression Screening Interpretation: Negative Thrive Assessment: Date of Thrive Assessment Date Thrive assessed 12/30/24 12/30/24 09:22 Currently or been in a relationship where the following occur: No concerns reported Const General: no acute distress and alert HENMT Other: (+) tenderness on palpation over the left side of the neck and over the left preauricular area and the left TMJ area Ears: TM's normal bilaterally and EAC's normal Throat: Yes posterior oropharynx normal and Yes tonsils normal (no TP congestion noted) Neck Neck: Yes supple and No lymphadenopathy Thyroid: Thyroid normal Resp Auscultation: clear to auscultation bilaterally, no rales and no wheezes Cardio Rate: regular rate Rhythm: regular rhythm Heart sounds: no murmurs GI Palpation (GI): Soft to palpation and nontender Auscultation: normal bowel sounds General: Yes no CVA tenderness Back/Spine/Pelvis Back: no CVA tenderness Thoracic/Lumbar Spine: No lumbar spinal tenderness Skin Rashes: no rashes Extrem General: Yes no clubbing, cyanosis or edema Results Reviewed Results Reviewed: Laboratory Tests 12/24/24 12/24/24 09:02 09:08 WBC 7.0 Hgb 11.8 L Hct 35.6 L Plt Count 276 Sodium 143 Potassium 4.3 Creatinine 1.52 H Estimated GFR 33 Fasting Glucose 112 H Hemoglobin A1c % 6.4 H Calcium 8.9 AST 19 ALT 8 Triglycerides 166 H Cholesterol 135 LDL Cholesterol, Calc 70 HDL Cholesterol 32 L Vitamin B12 555 25-OH Vitamin D Total 52.7 TSH 1.56 Ur Specific [place] 1.025 Urine Protein 30 (1+) H Urine Glucose (UA) >=1000 H Urine Blood Small (1+) H Urine Nitrite Negative Ur Leukocyte Esterase Large (3+) H Microalb/Creat Ratio 58.3 H Coding Level of Care Code Est Pt Level 4 (73124) Complex EM visit Add On G2211 Diagnoses Coronary artery disease involving [place] coronary artery of [place] heart without angina pectoris I25.10 Coronary Disease-Associated Artery/Lesion type: [place] artery [place] vs. transplanted heart: [place] heart Associated angina: without angina Atherosclerosis of left carotid artery I65.22 Laterality: left Peripheral vascular disease I73.9 Pure hypercholesterolemia E78.00 Benign essential hypertension I10 Type 2 diabetes mellitus with diabetic polyneuropathy, without long-term current use of insulin E11.42 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 long term care administrator insulin use: without long term care administrator use Diabetic polyneuropathy associated with type 2 diabetes mellitus E11.42 Stage 3b chronic kidney disease N18.32 Chronic kidney disease stage 3 subtype: stage 3b (GFR 30-44) Anemia, unspecified type D64.9 Anemia type: unspecified type Moderate persistent asthma without complication J45.40 Asthma severity: moderate Asthma persistence: persistent Asthma complication type: uncomplicated Allergic rhinitis, unspecified seasonality, unspecified trigger J30.9 Allergic rhinitis trigger: unspecified Allergic rhinitis seasonality: unspecified Jaw pain R68.84 Vitamin D deficiency E55.9 Seizure R56.9 Overweight (BMI 25.0-29.9) E66.3 Additional Codes PHQ-9 - 28502 - PHQ-9 Billing: Yes ([id number]) Assessment & Plan Assessment & Plan (1) Coronary artery disease: Onset Date: ~06/09/21 Comment: S/P stenting of ostial LAD; S/P CABG x 4 (RODRIGUEZ-mid LAD, SVG-PLV, left radial artery-OM, SVG-diag) on 06/09/21 Code(s): I25.10 - Atherosclerotic heart disease of [place] coronary artery without angina pectoris Category: Medical Qualifiers: Coronary Disease-Associated Artery/Lesion type: [place] artery [place] vs. transplanted heart: [place] heart Associated angina: without angina Qu alified Code(s): I25.10 - Atherosclerotic heart disease of [place] coronary artery without angina pectoris Plan: S/P CABG x 4 in May 2021 She reportedly had an angiogram/cardiac cath done at [facility] last year (2023) and was advised that she has (+) occluded SVG to PL but there are no options for percutaneous revascularization of this graft and she should just continue with aggressive medical management Continue Metoprolol ER 50 mg QD and Clopidogrel 75 mg QD; Aspirin 81 mg QD was previously discontinued due to her upper GI bleeding She was started back on Isosorbide Mononitrate ER 30 mg QD by cardiology recently due to some chest pains/discomfort on her part Patient also has NTG 0.4 mg tablets to take SL PRN for chest pains Patient is currently asymptomatic on her present medications from a cardiac standpoint Follow up with cardiology (Dr. Alba) as scheduled (2) Carotid atherosclerosis: Comment: S/P left carotid revascularization and endarterectomy in 2019 Code(s): I65.29 - Occlusion and stenosis of unspecified carotid artery Category: Medical Qualifiers: Laterality: left Qualified Code(s): I65.22 - Occlusion and stenosis of left carotid artery Plan: Continue Clopidogrel 75 mg QD She had a repeat carotid US done a couple of years ago that reportedly came out stable with no significant disease progression Follow up with vascular surgery (Dr. Jesus) as scheduled (3) Peripheral vascular disease: Code(s): I73.9 - Peripheral vascular disease, unspecified Category: Medical Plan: Follow up with vascular surgery as scheduled (4) Pure hypercholesterolemia: Code(s): E78.00 - Pure hypercholesterolemia, unspecified Category: Medical Plan: Results of her labs done last week reviewed and discussed with patient Reinforced low cholesterol diet Continue Atorvastatin 80 mg QD and Ezetimibe 10 mg QD Will recheck her labs and fasting lipids in 3 months for follow up (5) Benign essential hypertension: Code(s): I10 - Essential (primary) hypertension Category: Medical Plan: Reinforced low-sodium diet - goal is systolic BP of at least 120 to 130 mm or less due to her comorbidities Continue Metoprolol ER 50 mg QD; Losartan was previously discontinued due to hyperkalemia Amlodipine 5 mg was also discontinued likely due to side effects (edema) (6) Type 2 diabetes mellitus with diabetic polyneuropathy: Code(s): E11.42 - Type 2 diabetes mellitus with diabetic polyneuropathy Category: Medical Qualifiers: 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 long term care administrator insulin use: without long term care administrator use Qualified Code(s): E11.42 - Type 2 diabetes mellitus with diabetic polyneuropathy Plan: Her HgbA1c was at 6.4% on her recent labs done last week (this was previously at 6.6% a few months ago) - goal is < 7.0% Reinforced diabetic diet She was taken OFF Metformin a few months ago due to her declining renal function and is currently on Farxiga 10 mg QD and Glyburide 5 mg Q AM and 2.5 mg Q PM She has also been referred to a wig comber last year to help advise her on how to navigate her diet with all of her comorbidities (7) Diabetic polyneuropathy associated with type 2 diabetes mellitus: Code(s): E11.42 - Type 2 diabetes mellitus with diabetic polyneuropathy Category: Medical Plan: Continue Oxycodone-Acetaminophen 5-325 mg 2 to 3 times a day ONLY NEEDED for severe pain Will consider starting her on Gabapentin if her symptoms progress or worsen (8) Chronic kidney disease, stage III (moderate): Code(s): N18.30 - Chronic kidney disease, stage 3 unspecified Category: Medical Qualifiers: Chronic kidney disease stage 3 subtype: stage 3b (GFR 30-44) Qualified Code(s): N18.32 - Chronic kidney disease, stage 3b Plan: Her serum creatinine and GFR appears to have stabilized lately on her recent labs Follow up with nephrology as scheduled Will continue to monitor GFR and renal function regularly (9) Anemia: Code(s): D64.9 - Anemia, unspecified Category: Medical Qualifiers: Anemia type: unspecified type Qualified Code(s): D64.9 - Anemia, unspecified Plan: Stable - was most likely multifactorial, including due to upper GI bleeding a couple of years ago that required Hemospray and 2 units of PRBC Will continue to monitor her CBC regularly Follow up with hematology (Dr. Vazquez) as scheduled (10) Asthma: Code(s): J45.909 - Unspecified asthma, uncomplicated Category: Medical Qualifiers: Asthma severity: moderate Asthma persistence: persistent Asthma com plication type: uncomplicated Qualified Code(s): J45.40 - Moderate persistent asthma, uncomplicated Plan: Controlled Continue Albuterol HFA 2 puffs 4 times a day as needed Patient also has a nebulizer that she uses (with Albuterol solution 0.083%) up to 4 times a day when needed (11) Allergic rhinitis: Code(s): J30.9 - Allergic rhinitis, unspecified Category: Medical Qualifiers: Allergic rhinitis trigger: unspecified Allergic rhinitis seasonality: unspecified Qualified Code(s): J30.9 - Allergic rhinitis, unspecified Plan: Continue Loratadine 10 mg QD PRN (12) Jaw pain: Comment: LEFT Code(s): R68.84 - Jaw pain Category: Medical Plan: X-rays of the left jaw/TMJ done a couple of months ago came out unrevealing She was sent by GI for a barium swallow to help assess her symptoms of dysphagia as well and test done showed (+) 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 along the left pharynx and most of the bolus traversing the right side of the pharynx She has been referred for a neck CT for further evaluation and she is now scheduled for this next week (13) Vitamin D deficiency: Code(s): E55.9 - Vitamin D deficiency, unspecified Category: Medical Plan: Continue Vitamin D3 1000 units QD (14) Seizure: Code(s): R56.9 - Unspecified convulsions Category: Medical Plan: This was most likely due to (adverse reaction from) Doxycycline; she has had no recurrence of seizures since her discharge from [facility] a couple of years ago CTA of the head/neck and MRI of the brain done back then came out negative EEG done showed mild to moderate background slowing with occasional triphasic waves but no epileptiform activity was noted Neurology (Dr. Hernandez) thinks that patient actually had a TIA instead of a seizure (15) Overweight (BMI 25.0-29.9): Code(s): E66.3 - Overweight Category: Medical Plan: Reinforced diet/weight loss; exercise is unrealistic given patient's multiple comorbidities Plan Follow up in 3 months Orders: Orders UA CC w/rflx Micro + Cult 3 Months R30.0 - Dysuria Vitamin D 25-OH Total 3 Months E55.9 - Vitamin D deficiency, unspecified Complete Blood Count Auto Diff 3 Months D64.9 - Anemia, unspecified Lipid Panel 3 Months E78.00 - Pure hypercholesterolemia, unspecified Comprehensive [place]. Panel Fast 3 Months E78.00 - Pure hypercholesterolemia, unspecified Hemoglobin A1c 3 Months E11.9 - Type 2 diabetes mellitus without complications Microalbumin, Random (w Creat) 3 Months E11.9 - Type 2 diabetes mellitus without complications TSH reflex Free T4 3 Months E78.00 - Pure hypercholesterolemia, unspecified Vitamin B12 and Folate 3 Months E53.8 - Deficiency of other specified B group vitamins Medications: Refilled ondansetron 4 mg PO Q8H 15 days PRN 45 tabs 3RF nausea and vomiting
--- OUTSIDE RECORDS SUMMARY | 2024-12-30 09:46 | XMS_ITS | Clinical Summary ---
Author Organization [facility], Address [address] [place] [address] Phone Care Team Providers Care Ve Teacher Name Role Phone Jimmy Awan MD Primary Care Provider [phone] Allergies Active Allergy Reactions Criticality Noted Date [...] age to complete this topic Insurance Medicare [facility] Care Teams Ve Teacher Relationship Specialty Start Date End Date Jimmy Awan MD [address] [place] [address] PCP - General Internal Medicine 07/28/21
--- OUTSIDE RECORDS SUMMARY | 2024-12-30 09:46 | XMS_ITS | Data Portability ---
Author Organization [facility], [facility] Address [address] [place] [address] Care Team Providers Care Canine Service Instructor Trainer Name Role Phone GAURAV ROMAN Referring Provider [phone] LILIANA GREEN OTHER Assessment Encounter Date Assessment [...] contr ast No observ ation record ed. [address] [facility] [address] [place], [address], 10/17/2021 14:29:22 Result Notes None recorded. Procedures Surgical History Date Name Laterality Status Provider Name and Address Organization Details Recorded Time 10/13/2021 DATA REVIEW completed Antony Hernandez MD [address] [place] [address] [place], [address], [facility] Neurology [facility] 10/13/2021 17:40:07 Imaging Results Imaging Date Name Status LastModified by Organiz ation Details LastModified Time 10/13/2021 CT, head, w/o contrast completed [address] [facility] [address], [place], [address], 10/17/2021 14:29:22 Procedure Notes None recorded. Medical Equipment None Reported. Allergies Allergen ID Allergen Name Allergen Category Reaction Reaction Severity Criticality Documentation Date Start Date Code Code System Note Provider Name and Address Organization Details Recorded Time 1213 Product containin g penicilli n (product) medicatio n Not available Not available Not available 10/13/2021 50713 8001 SNOMED [place] [facility] 2 11:19:23 1214 doxycycli ne Not available Not available Not available Not available 10/13/2021 3640 RxNorm [place] [facility] 2 11:22:18 1215 Keppra medicatio n Not available Not available Not available 10/13/2021 47581 7 RxNorm [place] [facility] 2 11:22:28 Medications Name Sig Start [...] Updated DateTime 10/13/2021 157.48 cm 27.1 kg/m2 43692.67 g 12 /min [facility] 10/13/2021 11:18:56 Social History Question Answer Notes LastModified by Organizat ion Details LastModified Time Tobacco Smoking Status Former Smoker [facility] null, [facility] 10/13/2021 11:24:52 What Is Your Level Of Caffeine Consumption? Occasional Information not available 10/13/2021 What Is The Highest Grade Or Level Of School You Have Completed Or The Highest Degree You Have Received? [id number] Information not available 10/13/2021 Which Of Your Hands Is Dominant? Right Information not available 10/13/2021 What Is Your Relationship Status? Information not available 10/13/2021 Sex: Unknown Functional Status Question Answer Note LastModified by Organization D etails LastModified Time What is your level of alcohol consumption? None Information not available 10/13/2021 Mental Status None recorded. 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 2910652 G40.209 Generalize d-onset seizures 1510028 G40.309 Acute cere brovascular insufficiency 25201828 I67.81 Health Concerns Section Related Observation LastModified by Organization Detai ls LastModified Time None Recorded Concern Status LastModified by Organization Details LastModified Time None Recorded Advance Directives Directive None Recorded Payers Encounter Date Sequence Insurance Name Policy Number Policy Jamil Covered Member ID Jamil Member ID Guarantor Name 10/13/2021 1 MEDICARE [place]: [employer] Jermain Gonzales [id number] Jermain Gonzales 10/13/2021 2 [facility] [id number] Jermain Gonzales [id number] Jermain Gonzales Notes Date Note Type Note [...] causing suspicion for seizure. Antony Hernandez MD [address] [place] [address] [place], [address], [facility] Neurology [facility] 10/13/2021 17:43:39 OBGyn Episode No OBEpisode recorded.
--- OUTSIDE RECORDS SUMMARY | 2024-12-30 09:46 | XMS_ITS | Clinical Summary ---
Author Organization [address] [place] [address] [place] [phone] Phone Care Team Providers Care Seals Engraver Name Role Phone Jimmy Awan MD Primary Care Provider [phone] Allergies Active Allergy Reactions Criticality Noted Date Comments Doxycycline 08/01/2021 Hydrocortisone Rash 03/01/2022 Levetiracetam 08/01/2021 Milk Containing Products (Dairy) 03/01/2022 Mold 03/01/2022 Other 2024 Seasonal allergies Penicillins 10/28/2020 Prednisone 10/28/2020 Medications glyBURIDE (DIABETA) 5 mg tablet Take 1 tablet (5 mg total) by mouth 1 (one) time each day with breakfast. Active dapagliflozin propanediol (FARXIGA) 10 mg tablet Take 1 tablet (10 mg total) by mouth 1 (one) time each day. 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 V24) Take 1 tablet (30 mg total) by mouth 1 (one) time each day. Do not crush or chew. 90 each 1 5 Active bempedoic acid (Nexletol) 180 mg tablet TAKE 1 TABLET BY MOUTH DAILY 30 tablet 6 5 Active nitroglycerin (NITROSTAT) 0.[address] 1 tablet (0.3 mg total) under the tongue every 5 (five) minutes if needed for chest pain. 25 tablet 2 5 01/24/20 26 Active nitroglycerin (NITROSTAT) 0.[address] 1 tablet (0.3 mg total) under the tongue every 5 (five) minutes if needed. 4 12/30/19 25 Discontinu ed(Reorder ) Active Problems Problem Noted Date Diagnosed Date Angina pectoris (CMS/HCC V24) 03/01/2022 Overview (07/15/2024): post CABG Diabetes 1.5, managed as type 2 ([facility] V24, CM S/[facility] V28) 08/01/2021 Seizure disorder (CMS/[facility] V24, CMS/[facility] V28) 07/20 Hx of CABG 06/22/2021 Assessment & Plan (2024 12:12 PM EDT): Assessment & Plan (09/12/2024 6:55 PM EST): FRANKLIN (dyspnea on exertion) 06/22/2021 Carotid artery occlusion 06/21/2021 Overview (07/15/2024): Last Assessment & Plan: The patient continues to follow with vascular surgery as recommended. Old myocardial infarction 06/21/2021 Assessment & Plan (2024 12:12 PM EDT): Assessment & Plan (09/12/2024 6:55 PM EST): Type 2 diabetes mellitus ([facility] V24, 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 Since the addition of isosorbide after our last visit in August 2024, she has not had any further episodes of chest discomfort. We will not make any changes to her guideline directed medical therapies for coronary artery disease; continue metoprolol, atorvastatin and bempedoic acid, and DAPT with clopidogrel and daily ASA as well as isosorbide as an antianginal. The patient was advised to seek emergent [...] Do not crush or chew. Hypertension 10/28/2020 Assessment & Plan (2024 12:12 PM EDT): Blood pressure is slightly elevated on initial check as well as recheck today in the office; however, she reports that she has in a considerable amount of pain at the moment and feels this is why. She does have access to blood pressure cuff at home and I have requested that she check her blood pressure 1 to 2 hours after morning medications several times per week, calling the office should blood pressures remain persistently elevated above 140 systolic. The patient and her daughter are agreeable. She is not currently on an LUCRECIA or an ARB for nephro protection given her diabetes; she is followed closely by nephrology. Continue metoprolol and isosorbide. She reports having recent labs completed at [facility] and we will attempt to obtain these for review. Assessment & Plan (09/12/2024 6:55 PM EST): Blood pressure is favorable on current medical therapy; continue metoprolol addition to newly added isosorbide. We will attempt to get more with her recent labs from her PCPs office for review. Peripheral vascular disease ([facility] V24) 2020 Assessment & Plan (2024 12:12 PM EDT): The patient will continue to follow with vascular surgery as recommended. Assessment & Plan (09/12/2024 6:55 PM EST): The patient will continue to follow with vascular surgery as recommended. Hyperlipidemia 10/28/2020 Assessment & Plan (2024 12:12 PM EDT): The patient believes that she had a more recent lipid panel completed at [facility]; we will attempt to obtain these for review. Given her history of coronary artery disease as well as diabetes, LDL goal is less than 55. She has previously been unable to tolerate ezetimibe or any PCSK9 inhibitor and has subsequently been maintained on the maximum dose of atorvastatin in addition to bempedoic acid; we will not make any changes to his medications today. Assessment & Plan (09/12/2024 6:55 PM EST): [...] Encounters Date Type Department Care Team Description 2024 11:10 AM EDT Office Visit [facility] [address] [place] [address] Clemencia Aviles NP Coronary artery disease involving coronary bypass graft of cowlitz heart without angina pectoris (Primary Dx); Hx of CABG; Old myocardial infarction; Primary hypertension; Hyperlipidemia, unspecified hyperlipidemia type; Peripheral vascular disease ([facility] V24) from Last 3 Months Surgical History Surgery [...] site debridement BYPASS GRAFT 09/10/2013 Left PROCEDURE: OH AMPUTATION TOE METATARSOPHALANGEAL JOINT; COMMENT: 2nd toe CARDIAC CATHETERIZATION 07/02/2013 PROCEDURE: HISTORICAL CARDIAC CATH OTHER SURGICAL HISTORY 02/18/2013 PROCEDURE: OH CORONARY ENDARTERCOMY OPEN ANY METHOD OTHER SURGICAL HISTORY 02/18/2013 PROCEDURE: OH BYPASS W/VEIN FEMORAL-FEMORAL OTHER SURGICAL HISTORY 07/31/2012 PROCEDURE: HISTORY OTHER; COMMENT: Right carotid endarterectomy with patch angioplasty reconstruction CARDIAC CATHETERIZATION 05/21/2012 PROCEDURE: HISTORICAL CARDIAC CATH CHOLECYSTECTOMY PROCEDURE: HISTORICAL CHOLECYSTECTOMY Medical History Medical History Date Comments Fall 03/01/2022 DX:Fall Hematemesis DX:Hematemesis Left orbit fracture ([facility] V24, [facility] V28) DX:Left orbit fracture ([facility]) Upper GI bleed DX:Upper GI blee d Hemorrhagic shock ([facility] V 24, [facility] V28) DX:Hemorrhagic shock ([facility]) Acute kidney injury superimp osed on CKD ([facility] V24) DX:Acute kidney injury super imposed on CKD ([facility]) Hyponatremia DX:Hyponatremia Delirium DX:Delirium UTI (urinary tract infection) DX :UTI (urinary tract infection) Anemia DX:Anemia Claudication ([facility] V24) DX:Cl audication ([facility]) COPD (chronic obstructive pu lmonary disease) ([facility] V24, [facility] V28) DX:COPD (chronic o bstructive pulmonary disease) ([facility]) 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 ([facility] V 24, [facility] V28) DX: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 ([facility]) GERD (gastroesophageal reflu x disease) DX:GERD (gastroesophageal re flux disease) Hard of hearing DX:Hard of heari ng Neck strain DX:Neck strain Obesity DX:Obesity PONV (postoperative nausea a nd vomiting) DX:PONV (postoperative nause a and vomiting) Toe ulcer ([facility] V24, [facility] V28) DX:Toe ulcer ([facility]) Family History Medical History Relation Name Comments [...] Sign Reading Time Taken Comments Blood Pressure 142/68 2024 11:33 AM EDT Pulse 56 2024 11:11 AM EDT Temperature - - Respiratory Rate - - Oxygen Saturation 96% 2024 11:11 AM EDT Inhaled Oxygen Concentration - - Weight 69.7 kg (153 lb 9.6 oz) 2024 11:11 AM EDT Height 157.5 cm (5' 2 ) 2024 11:11 AM EDT Body Mass Index 28.09 2024 11:11 AM EDT Plan of Treatment Health Maintenance Due Date [...] age to complete this topic Insurance MEDICARE [facility] [address] [place] [address] Care Teams Seals Engraver Relationship Specialty Start Date End Date Jimmy Awan MD [address] [place] PCP - General 05/21/12
--- OUTSIDE RECORDS SUMMARY | 2024-12-30 09:46 | XMS_ITS | Encounter Summary ---
Author Organization [facility] Address [address] [place] [address] Care Team Providers Care Media Marketing Coordinator Name Role Phone Jimmy Awan MD Primary Care Provider Reason for Visit * Reason Comments Follow-up Encounter Details Date Type Department Care Team (Late st Contact Info) Description 2024 11:10 AM EDT Office Visit [facility] [address] [place] [address] Clemencia Aviles NP [address] [place] [address] Coronary artery disease involving coronary bypass graft of [place] heart without angina pectoris (Primary Dx); Hx of CABG; Old myocardial infarction; Primary hypertension; Hyperlipidemia, unspecified hyperlipidemia type; Peripheral vascular disease (CMS/HCC V24) Social History Tobacco Use Types Packs/Day Years [...] Mass Index 28.09 2024 11:11 AM EDT documented in this encounter Ordered Prescriptions Prescription Sig Dispense Quantity Refills Last Filled Start Date End Date nitroglycerin (NITROSTAT) 0.[address] 1 tablet (0.3 mg total) under the tongue every 5 (five) minutes if needed for chest pain. 25 tablet 2 2024 documented in this encounter Progress Notes * Clemencia Aviles NP - 2024 11:10 AM EDTAssociated Problem(s): Coronary artery disease involving coronary bypass graft of [place] heart witho ut angina pectoris The patient is now status post CABG [...] not make any changes to her guideline directedmedical therapies for coronary artery disease; continue metoprolol, atorvastatin and bempedoic acid, and DAPT with clopidogrel and daily ASA as well as isosorbide as an antianginal. The patient was advised to seek emergent medical attention by calling 911 if they were to develop severe dyspnea, chest pain that did not resolve with rest or nitroglycerin, or if they were to faint. * Clemencia Aviles NP - 2024 11:10 AM EDTAssociated Problem(s): Hypertension Blood pressure is slightly elevated on initial [...] She reports having recent labs completed at [facility] and we will attempt to obtain these for review. * Clemencia Aviles NP - 2024 11:10 AM EDTAssociated Problem(s): Peripheral vascular disease ([facility] V24) The patient will continue to follow with vascular surgery as recommended. * Clemencia Aviles NP - 2024 11:10 AM EDTAssociated Problem(s): Hyperlipidemia The patient believes that she had a more recent lipid panel completed at [facility]; wewill attempt to obtain these for review. Given her history of coronary artery disease as well as diabetes, LDL goal is less than 55. She has previously been unable to tolerate ezetimibe or any PCSK9 inhibitor and has subsequently been maintained on the maximum dose of atorvastatin in addition to bempedoic acid; we will not make any changes to his medications today. * Clemencia Aviles NP - 2024 11:10 AM EDTAssociated Problem(s): Old myocardial infarction * Clemencia Aviles NP - 2024 11:10 AM EDTAssociated Problem(s): Hx of CABG * Clemencia Aviles NP - 2024 11:10 AM EDT Images from the original note were not included. [facility] PRIMARY DAIRY SCIENTIST: Liliana Green MD PCP: Jimmy Awan MD HPI: Jermain Gonzales is a 84 y.o. old female with a past medical [...] and totally occluded RCA that had collateralized. Regadenoson nuclear stress test completed 12/04/2023 completed for reports of intermittent chest pain and shortness of breath with exertion revealed a medium in size and mild in intensity reversible perfusion defect in the basal to mid inferior wall and basal inferoseptal wall. No fixed perfusion defects to suggest infarct. LVEF 57%. There was evidence of significant multivessel coronary artery calcifications on CT images. She subsequently underwent cardiac catheterization on 01/11/2024 which revealed a patent RODRIGUEZ to LAD, SVG to diagonal, and radial to OM as well as an occluded SVG to PL whichthey felt accounted for the inferior ischemia seen on the stress test. Normal LVEDP. No significantgradient across the aortic valve on pullback. There were no options for percutaneous revascularization of this graft and it was suggested to optimize GDMT for established CAD and antianginal therapy.Due to difficulty with vascular access, it was recommended that the patient undergo coronary CTA inthe future instead of repeat angiography. She previously did not tolerate Zetia for unclear reasons [...] her daughter, Florencia, with whom she lives. She reports that she is staying active andmoving a lot throughout the day but is in a lot of pain and having trouble eating/swallowing due toa mass on her left neck that has been present since sometime around September. She will be having a CT scan within the next 1 to 2 weeks for further evaluation. She is taking Percocet as infrequently as possible but when the pain gets bad she does get dizzy; no falls and no syncope or presyncope. Since starting isosorbide, she denies any further episodes of chest pain or pressure at rest or with exertion. No shortness of breath at rest or with exertion. No palpitations, peripheral edema, or orthopnea or PND. ACTIVE MEDICATIONS: Outpatient Medications Marked as Taking for the 12/29/24 encounter (Office Visit) with Clemencia Aviles NP Medication Sig Dispense Refill albuterol HFA (PROAIR HFA ; PROVENTIL HFA ; VENTOLIN HFA) 90 mcg/actuation inhaler Inhale 2 puffs by mouth every 4 (four) hours if needed. atorvastatin (LIPITOR) 80 mg tablet Take 1 tablet (80 mg total) by mouth 1 (one) time each day. bempedoic acid (Nexletol) 180 mg tablet TAKE 1 TABLET BY MOUTH DAILY 30 tablet 6 cholecalciferol (VITAMIN D-3) 25 mcg (1,000 unit) [...] 1 (one) time each day with breakfast. isosorbide mononitrate (IMDUR) 30 mg 24 hr tablet Take 1 tablet (30 mg total) by mouth 1 (one) timeeach day. Do not crush or chew. 90 each 1 latanoprost (XALATAN) 0.005 % ophthalmic solution 1 [...] needed for chest pain. 25 tablet 2 ondansetron (ZOFRAN) 4 mg tablet Take 1 tablet (4 mg total) by mouth 2 (two) times a day. pantoprazole (PROTONIX) 40 mg EC tablet Take 1 tablet (40 mg total) by mouth 1 (one) time each day. sucralfate (CARAFATE) 1 gram tablet Take 1 tablet (1 g total) by mouth at bedtime. PAST MEDICAL HISTORY: Patient Active Problem List Diagnosis Coronary artery disease involving coronary bypass graft of [place] heart without angina pectoris Hypertension Peripheral vascular disease ([facility] V24) Carotid artery occlusion Old myocardial infarction Angina pectoris ([facility] V24) Hyperlipidemia Type 2 diabetes mellitus ([facility] V24, [facility] V28) Diabetes 1.5, managed as type 2 ([facility] V24, [facility] V28) Seizure disorder ([facility] V24, [facility] V28) Hx of CABG [place] (dyspnea on exertion) ALLERGIES: Allergies Allergen Reactions Doxycycline Hydrocortisone Rash Levetiracetam Milk Containing Products (Dairy) Mold Other Seasonal allergies Penicillins Prednisone SOCIAL HISTORY: Social History Tobacco Use Smoking status: Former Types: Cigarettes Smokeless tobacco: Never Substance Use Topics Alcohol use: Yes PHYSICAL EXAM: Vitals: 12/29/24 1111 12/29/24 1133 BP: (!) 160/72 (!) 142/68 BP Location: Left arm Left arm Patient Position: Sitting Sitting BP Cuff Size: Adult Pulse: 56 SpO2: 96% Weight: 69.7 kg (153 lb 9.6 oz) Height: 1.575 m (62 ) Body mass index is 28.09 kg/m??. Physical Exam Vitals reviewed. Constitutional: General: She is not in acute distress. Appearance: Normal appearance. She is not ill-appearing. Comments: overweight HENT: Head: Normocephalic and atraumatic. Mouth/Throat: Mouth: Mucous membranes are moist. Eyes: General: No scleral icterus. Extraocular Movements: Extraocular movements intact. Pupils: Pupils are equal, round, and reactive to light. Neck: Vascular: Decreased carotid pulses (1+ left, 2+ right). Carotid bruit (left>right) present. No hepatojugular reflux or JVD. Comments: Left lateral neck mass, TTP Cardiovascular: Rate and Rhythm: Normal rate and [...] Q-T Interval 420 QTc 415 P Wave [place] 73 R [place] 44 T [place] 118 ECG Interpretation Sinus bradycardia ST and T wave abnormality, consider lateral ischemia Abnormal ECG Similar to previous 01/11/2024 Confirmed by Nomi GREEN, LILIANA ([id number]) on 09/12/2024 4:54:03 PM *Note: Due to a large number of results and/or encounters for the requested time period, some results have not been displayed. A complete set of results can be found in Results Review. TESTING: ASSESSMENT/PLAN: Assessment & Plan Coronary artery disease involving coronary bypass graft of [place] heart without angina pectoris The patient is now status post CABG [...] not make any changes to her guideline directedmedical therapies for coronary artery disease; continue metoprolol, atorvastatin and bempedoic acid, and DAPT with clopidogrel and daily ASA as well as isosorbide as an antianginal. The patient was advised to seek emergent medical attention by calling 911 if they were to develop severe dyspnea, chest pain that did not resolve with rest or nitroglycerin, or if they were to faint. Hx of CABG Old myocardial infarction Primary hypertension Blood pressure is slightly elevated on initial [...] She reports having recent labs completed at [facility] and we will attempt to obtain these for review. Hyperlipidemia, unspecified hyperlipidemia type The patient believes that she had a more recent lipid panel completed at [facility]; wewill attempt to obtain these for review. Given her history of coronary artery disease as well as diabetes, LDL goal is less than 55. She has previously been unable to tolerate ezetimibe or any PCSK9 inhibitor and has subsequently been maintained on the maximum dose of atorvastatin in addition to bempedoic acid; we will not make any changes to his medications today. Peripheral vascular disease ([facility] V24) The patient will continue to follow with vascular surgery as recommended. Thank you for allowing us to participate in the care of this patient. The patient will follow up in6 months, sooner PRN. As per AHA guidelines and previously established plan of care by Dr. Liliana Green MD, we discussed the following today: Coronary artery disease, hypertension, hyperlipidemia, and peripheral vascular disease. This note was dictated using voice recognition software. Please pardon any grammatical or syntax errors. [facility] Cosigned by Liliana Green MD at 2024 12:19 PM EDT documented in this encounter Plan of Treatment Not on file documented as of this encounter Visit Diagnoses Diagnosis Coronary artery disease involving coronary bypass graft of [place] heart without angina pectoris- Primary Hx of CABG Postsurgical aortocoronary bypass status Old myocardial infarction Primary hypertension Unspecified essential hypertension Hyperlipidemia, unspecified hyperlipidemia type Peripheral vascular disease ([facility] V24) Unspecified peripheral vascular disease documented in this encounter Discontinued Medications Medication Sig Discontinue Reason Start Date End Da te nitroglycerin (NITROSTAT) 0.[address] 1 tablet (0.3 mg total) under the tongue every 5 (five) minutes if needed. Reorder 11/09/2023 2024 documented as of this encounter Care Teams Media Marketing Coordinator Relationship Specialty Start Date End Date Jimmy Awan MD [address] [place] [address] Dr [address] [place] PCP - General 05/21/12 documented as of this encounter
== END 2024-12-30 10:12 | disposition home or self-care (01) ==
LOC: HO.HMCH 09:17
PROVIDERS: PCP Internal Medicine; Visit Provider Internal Medicine
DX: I12.9 Hypertensive chronic kidney disease with stage 1 through stage 4 chronic kidney disease, or unspecified chronic kidney disease (principal); E11.42 Type 2 diabetes mellitus with diabetic polyneuropathy; N18.32 Chronic kidney disease, stage 3b; R56.9 Unspecified convulsions; I25.10 Atherosclerotic heart disease of native coronary artery without angina pectoris; I65.22 Occlusion and stenosis of left carotid artery; I73.9 Peripheral vascular disease, unspecified; E78.00 Pure hypercholesterolemia, unspecified; D64.9 Anemia, unspecified; J45.40 Moderate persistent asthma, uncomplicated; J30.9 Allergic rhinitis, unspecified; R68.84 Jaw pain

== ENCOUNTER → 2024-12-30 09:16 | Outpatient (BNVA) | payer MEDICARE, OTHER, SELFPAY | PROVIDERS: PCP Internal Medicine; Visit Provider Internal Medicine | DX: I12.9 Hypertensive chronic kidney disease with stage 1 through stage 4 chronic kidney disease, or unspecified chronic kidney disease (principal); E11.22 Type 2 diabetes mellitus with diabetic chronic kidney disease; N18.32 Chronic kidney disease, stage 3b; D64.9 Anemia, unspecified; E87.5 Hyperkalemia; I73.9 Peripheral vascular disease, unspecified; I25.10 Atherosclerotic heart disease of native coronary artery without angina pectoris; I65.22 Occlusion and stenosis of left carotid artery; E11.42 Type 2 diabetes mellitus with diabetic polyneuropathy | CPT/HCPCS: 96127; 99212 ==

== ENCOUNTER 2024-12-30 13:35 | Outpatient (AMB) | payer MEDICARE, OTHER, SELFPAY ==
--- NOTE | 2024-12-30 13:36 | HO.NEPHOV ---
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 Required: No Accompanied by: Daughter Allergies evolocumab [From Repatha SureClick] Allergy (Intermediate, Verified 12/30/24 13:39) Hives doxycycline Allergy (Mild, Verified 12/30/24 13:39) Vomiting levetiracetam [From Keppra] Allergy (Mild, Verified 12/30/24 13:39) Vomiting amoxicillin Allergy (Unknown, Verified 12/30/24 13:39) rash Penicillins Allergy (Unknown, Verified 12/30/24 13:39) rash prednisone Allergy (Unknown, Verified 12/30/24 13:39) rash ceftriaxone [From Rocephin] Allergy (Verified 12/30/24 13:39) Rash milk Allergy (Verified 12/30/24 13:39) Unknown omeprazole Adverse Reaction (Unknown, Verified 12/30/24 13:39) worsening heartburn ranitidine Adverse Reaction (Unknown, Verified 12/30/24 13:39) worsening heartburn, abdominal pain (ONLY to generic) Medication List - Last Reconciled 12/30/24 by Bjorn Larios MD albuterol sulfate 2.5 mg (3 mL) inhalation QID PRN albuterol sulfate 90 mcg/actuation 2 puffs inhalation Q6H PRN 30 days atorvastatin 80 mg PO BEDTIME 90 days bempedoic acid (Nexletol) 180 mg PO DAILY blood sugar diagnostic (FreeStyle Lite Strips) As directed- to test blood sugar TID cholecalciferol (vitamin D3) 50 mcg PO DAILY 90 days clopidogrel 75 mg PO DAILY 90 days dapagliflozin propanediol 10 mg PO DAILY glyburide 5 mg in AM and 2.5 mg in PM orally BID 90 days isosorbide mononitrate ER 30 mg PO DAILY lancets (FreeStyle Lancets) As directed once a day latanoprost 0.005% 1 drp ophthalmic (eye) BEDTIME loratadine 10 mg PO DAILY PRN 90 days NS metoprolol succinate ER 50 mg PO DAILY nitroglycerin mg sublingual ondansetron 4 mg PO Q8H PRN 15 days oxycodone-acetaminophen 5-325 mg 1 tab PO TID PRN pantoprazole 40 mg PO DAILY sucralfate 1 g PO BEDTIME 30 days triamcinolone acetonide 0.1% 1 appl topical BID HPI Comments Details: 82-year-old woman with a history of longstanding diabetes mellitus for more than 30 years along with hypertension and peripheral vascular disease. She was on losartan for quite some time. Recently was shortness discontinued due to a bump in the creatinine. She was on metformin which has been held due to worsening serum creatinine. Farxiga has been added. She has increased urination otherwise no other issues. She was accompanied by her daughter today. She has extensive to vascular disease undergone stent placements for progressive disease. History of coronary disease as well. She has history of smoking for almost 30 years but she quit smoking more than 20 years ago. 08/02/23:Feels better;Has dysuria - this started after staring SGLT-2 inhibitor 01/17/24; s/p Angiogram last week;c/o dysuria and burning sensation 05/15/24 Here for follow up;No urinary sypmtoms Has dyspnea on exertion. No chest pain 12/30/24 84-year-old female presenting with difficulty swallowing and associated symptoms. She reports an onset three months ago, with worsening pain and oropharyngeal swelling that have led to significant dietary changes. Despite being evaluated by an ENT specialist, there remains notable difficulty in fluid intake, compounding dysphagic symptoms. Previous throat issues included a polyp; however, current symptoms present with greater severity than experienced before. A diagnosis of chronic kidney disease with stable function is documented over the past two years, with consistent lab results indicating management efficacy. Her blood glucose remains controlled on Dapagliflozin, and her recent blood pressure spikes may correlate with increased physical activity. Pain management has been assisted by Percocet, while gastroesophageal symptoms are managed with Zofran and Sucralfate. [facility] Medical History Chronic kidney disease, stage 4 (severe) Chronic kidney disease, stage III (moderate) Atrophic vaginitis Orbital fracture Upper GI bleeding Hearing impairment Seizure Recurrent urinary tract infection Overweight (BMI 25.0-29.9) Vitamin D deficiency Allergic rhinitis Meralgia paresthetica of right side Anemia GERD without esophagitis Asthma Hyperkalemia Diabetic polyneuropathy associated with type 2 diabetes mellitus Peripheral vascular disease Pure hypercholesterolemia Benign essential hypertension Carotid atherosclerosis Coronary artery disease (~06/09/21) Type 2 diabetes mellitus with diabetic polyneuropathy Surgical History Hx of colonoscopy History of endoscopy S/P CABG x 4 (~06/09/21) History of cardiac catheterization (~12/2023) History of left-sided carotid endarterectomy S/P LASIK surgery History of right-sided carotid endarterectomy History of laparoscopic cholecystectomy Family History Father CVD (cardiovascular disease) Mother Stroke Brother CVD (cardiovascular disease) Esophageal cancer Social History Household Members: Children Housing: House Are you a primary care professional to a significant other at home: No Do you presently have visiting nurse or other home services: No Alcohol intake: never Comment: cardiac Patient Tobacco Use Status: Former Tobacco user Tobacco use type: Cigarette e-Cigarette/Vaping Use: Never Used Second Hand Smoke Exposure: No Advance Directives Date on File: 01/11/22 service: No Current occupational status: retired 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 Lungs entry equal no rales. Heart S1-S2 heard no gallop or rub. Abdomen soft nontender. Neuro alert awake oriented. No asterixis. Extremities no edema. Results Reviewed Nephrology Results: Hgb 11.8 g/dl (12.0-16.0) L 12/24/24 WBC 7.0 X10*3/uL (4.8-10.8) 12/24/24 Plt Count 276 X10*3/uL (160-400) 12/24/24 Sodium 143 mmol/L (135-145) 05/07/25 Potassium 4.3 mmol/L (3.3-5.1) 12/24/24 Chloride 107 mmol/L (96-108) 12/24/24 Carbon Dioxide 26 mmol/L (22-29) 12/24/24 BUN 27 mg/dL (9-16) H 12/24/24 Creatinine 1.52 mg/dL (0.5-1.4) H 12/24/24 Calcium 8.9 mg/dL (8.4-10.2) 12/24/24 Urine Protein 30 (1+) mg/dL (Neg-Trace) H 12/24/24 Urine Creatinine 73.74 mg/dL 12/24/24 Assessment & Plan Assessment & Plan (1) Chronic kidney disease, stage III (moderate): Code(s): N18.30 - Chronic kidney disease, stage 3 unspecified Category: Medical Qualifiers: Chronic kidney disease stage 3 subtype: stage 3b (GFR 30-44) Qualified Code(s): N18.32 - Chronic kidney disease, stage 3b (2) Anemia: Code(s): D64.9 - Anemia, unspecified Category: Medical Qualifiers: Anemia type: unspecified type Qualified Code(s): D64.9 - Anemia, unspecified (3) Hyperkalemia: Code(s): E87.5 - Hyperkalemia Category: Medical (4) Peripheral vascular disease: Code(s): I73.9 - Peripheral vascular disease, unspecified Category: Medical (5) Coronary artery disease: Onset Date: ~06/09/21 Comment: S/P stenting of ostial LAD; S/P CABG x 4 (RODRIGUEZ-mid LAD, SVG-PLV, left radial artery-OM, SVG-diag) on 06/09/21 Code(s): I25.10 - Atherosclerotic heart disease of [place] coronary artery without angina pectoris Category: Medical Qualifiers: Associated angina: without angina Coronary Disease-Associated Artery/Lesion type: [place] artery [place] vs. transplanted heart: [place] heart Qualified Code(s): I25.10 - Atherosclerotic heart disease of [place] coronary artery without angina pectoris (6) Carotid atherosclerosis: Comment: S/P left carotid revascularization and endarterectomy in 2019 Code(s): I65.29 - Occlusion and stenosis of unspecified carotid artery Category: Medical Qualifiers: Laterality: left Qualified Code(s): I65.22 - Occlusion and stenosis of left carotid artery Plan 84-year-old woman with CKD in a setting of hypertension longstanding diabetes mellitus and peripheral vascular disease. Creatinine is at 1.42 pre angiogram Currently stable at 1.6 over the past several months This might me the new baseline BP is well controlled Obstructive uropathy was ruled out Based on the urine findings I do not believe she has any active glomerulonephritis or interstitial disease at this time. Glycosuria due to SGLT-2 inhibitor NO Proteinuria Potassium is better controlled Recommendations Maintain BP < 130/80 and A1C < 7% No indication for renal Doppler at this time. Low-potassium diet. Increase fluid intake. Avoid nephrotoxins including NSAIDs. Work up in progress for neckmass. Orders: Orders Parathyroid Hormone Intact 4 Months N18.32 - Chronic kidney disease, stage 3b Complete Blood Count no Diff 4 Months N18.32 - Chronic kidney disease, stage 3b UA and rflx microscopic 4 Months N18.32 - Chronic kidney disease, stage 3b Total Protein Urine Random 4 Months N18.32 - Chronic kidney disease, stage 3b Creatinine Urine 4 Months N18.32 - Chronic kidney disease, stage 3b Basic Metabolic Panel 4 Months N18.32 - Chronic kidney disease, stage 3b Coding Level of Care Code Est Pt Level 4 (11415) Diagnoses Stage 3b chronic kidney disease N18.32 Chronic kidney disease stage 3 subtype: stage 3b (GFR 30-44) Anemia, unspecified type D64.9 Anemia type: unspecified type Hyperkalemia E87.5 Peripheral vascular disease I73.9 Coronary artery disease involving [place] coronary artery of [place] heart without angina pectoris I25.10 Associated angina: without angina Coronary Disease-Associated Artery/Lesion type: [place] artery [place] vs. transplanted heart: [place] heart Atherosclerosis of left carotid artery I65.22 Laterality: left
[2024-12-30 13:37] VITALS: BP 132/50; PULSE 61; O2SAT 95; BMI 28.3
--- OUTSIDE RECORDS SUMMARY | 2024-12-30 14:42 | XMS_ITS | Clinical Summary ---
Author Organization [address] [place] [address] [place] [phone] Phone Care Team Providers Care Straight Truck Driver Name Role Phone Jimmy Awan MD Primary [...] 24 hr tabletIndication s:Coronary artery disease of stillaguam[place] artery of still[place] heart with stable angina pectoris (CMS/[facility] V24) Take 1 tablet (30 mg total) [...] CABG Diabetes 1.5, managed as type 2 ([facility] V24, CM S/[facility] V28) 08/01/2021 Seizure disorder (CMS/[facility] V24, CMS/[facility] V28) 07/20 Hx of CABG 06/22/2021 Assessment [...] 6:55 PM EST): Type 2 diabetes mellitus ([facility] V24, [facility] V 28) 06/21/2021 Coronary artery disease invo lving coronary bypass graft of still[place]am[place] heart without angina pectoris 10/28/2020 Assessment & [...] She reports having recent labs completed at [facility] and we will attempt to obtain these for review. Assessment & Plan (09/12/2024 6:55 PM EST): Blood pressure is favorable on current medical therapy; continue metoprolol addition to newly added isosorbide. We will attempt to get more with her recent labs from her PCPs office for review. Peripheral vascular disease ([facility] V24) 2020 Assessment & Plan (2024 12:12 PM EDT): The patient will continue to follow with vascular surgery as recommended. Assessment & Plan (09/12/2024 6:55 PM EST): The patient will continue to follow with vascular surgery as recommended. Hyperlipidemia 10/28/2020 Assessment & Plan (2024 12:12 PM EDT): The patient believes that she had a more recent lipid panel completed at [facility]; we will attempt to obtain these for [...] Description 2024 11:10 AM EDT Office Visit [facility] [address] [place] [address] Clemencia Aviles NP Coronary artery disease involving coronary bypass graft of stillaguam[place] heart without angina pectoris (Primary Dx); Hx of CABG; Old myocardial infarction; Primary hypertension; Hyperlipidemia, unspecified hyperlipidemia type; Peripheral vascular disease ([facility] V24) from Last 3 Months Surgical History [...] site debridement BYPASS GRAFT 09/10/2013 Left PROCEDURE: DC AMPUTATION TOE METATARSOPHALANGEAL JOINT; COMMENT: 2nd toe CARDIAC CATHETERIZATION 07/02/2013 PROCEDURE: HISTORICAL CARDIAC CATH OTHER SURGICAL HISTORY 02/18/2013 PROCEDURE: DC CORONARY ENDARTERCOMY OPEN ANY METHOD OTHER SURGICAL HISTORY 02/18/2013 PROCEDURE: DC BYPASS W/VEIN FEMORAL-FEMORAL OTHER SURGICAL HISTORY 07/31/2012 PROCEDURE: HISTORY OTHER; COMMENT: Right carotid endarterectomy with patch angioplasty reconstruction CARDIAC CATHETERIZATION 05/21/2012 PROCEDURE: HISTORICAL CARDIAC CATH CHOLECYSTECTOMY PROCEDURE: HISTORICAL CHOLECYSTECTOMY Medical History Medical History Date Comments Fall 03/01/2022 DX:Fall Hematemesis DX:Hematemesis Left orbit fracture ([facility] V24, [facility] V28) DX:Left orbit fracture ([facility]) Upper GI bleed DX:Upper GI blee d Hemorrhagic shock ([facility] V 24, [facility] V28) DX:Hemorrhagic shock ([facility]) Acute kidney injury superimp osed on CKD ([facility] V24) DX:Acute kidney injury super imposed on CKD ([facility]) Hyponatremia DX:Hyponatremia Delirium DX:Delirium UTI (urinary tract infection) DX :UTI (urinary tract infection) Anemia DX:Anemia Claudication ([facility] V24) DX:Cl audication ([facility]) COPD (chronic obstructive pu lmonary disease) ([facility] V24, [facility] V28) DX:COPD (chronic o bstructive pulmonary disease) ([facility]) 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 ([facility] V 24, [facility] V28) DX: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 ([facility]) GERD (gastroesophageal reflu x disease) DX:GERD (gastroesophageal re flux disease) Hard of hearing DX:Hard of heari ng Neck strain DX:Neck strain Obesity DX:Obesity PONV (postoperative nausea a nd vomiting) DX:PONV (postoperative nause a and vomiting) Toe ulcer ([facility] V24, [facility] V28) DX:Toe ulcer ([facility]) Family History Medical History Relation Name Comments [...] age to complete this topic Insurance MEDICARE [facility] [address] [place] [address] Care Teams Straight Truck Driver Relationship Specialty Start Date End Date Jimmy Awan MD [address] [place] PCP - General 05/21/12
--- OUTSIDE RECORDS SUMMARY | 2024-12-30 14:42 | XMS_ITS | Clinical Summary ---
Author Organization [facility], Address [address] [place] [address] Phone Care Team Providers Care Sign Writer Letterer Or Painter Name Role Phone Jimmy Awan MD Primary Care Provider [phone]- [phone] Allergies Active Allergy Reactions Criticality Noted Date [...] age to complete this topic Insurance Medicare [facility] Care Teams Sign Writer Letterer Or Painter Relationship Specialty Start Date End Date Jimmy Awan MD [address] [place] [address] PCP - General Internal Medicine 07/28/21
--- OUTSIDE RECORDS SUMMARY | 2024-12-30 14:42 | XMS_ITS | Encounter Summary ---
Author Organization [facility] Address [address] [place] [address] Care Team Providers Care Tube Rebuilder Name Role Phone Jimmy Awan MD Primary Care Provider Reason for Visit * Reason Comments Follow-up Encounter Details Date Type Department Care Team (Late st Contact Info) Description 2024 11:10 AM EDT Office Visit [facility] - [address] [place] [address] Clemencia Aviles NP [address] [place] [address] Coronary artery disease involving coronary bypass graft of venetie ira heart without angina pectoris (Primary Dx); Hx [...] artery disease involving coronary bypass graft of venetie ira heart witho ut angina pectoris The patient [...] She reports having recent labs completed at [facility] and we will attempt to obtain these for review. * Clemencia Aviles NP - 2024 11:10 AM EDTAssociated Problem(s): Peripheral vascular disease ([facility] V24) The patient will continue to follow with vascular surgery as recommended. * Clemencia Aviles NP - 2024 11:10 AM EDTAssociated Problem(s): Hyperlipidemia The patient believes that she had a more recent lipid panel completed at [facility]; wewill attempt to obtain these for review. [...] from the original note were not included. [facility] PRIMARY BILINGUAL HR GENERALIST: Liliana Green MD PCP: Jimmy Awan MD [...] artery disease involving coronary bypass graft of venet[place] ira heart without angina pectoris Hypertension Peripheral vascular disease ([facility] V24) Carotid artery occlusion Old myocardial infarction Angina pectoris ([facility] V24) Hyperlipidemia Type 2 diabetes mellitus ([facility] V24, [facility] V28) Diabetes 1.5, managed as type 2 ([facility] V24[facility] V28) Seizure disorder ([facility] V24[facility] V28) Hx of CABG [place] (dyspnea on [...] Q-T Interval 420 QTc 415 P Wave [place] [address] [place] [address] T [place] 118 ECG Interpretation Sinus bradycardia ST and [...] artery disease involving coronary bypass graft of venetie ira heart without angina pectoris The patient is [...] She reports having recent labs completed at [facility] and we will attempt to obtain these for review. Hyperlipidemia, unspecified hyperlipidemia type The patient believes that she had a more recent lipid panel completed at [facility]; wewill attempt to obtain these for review. [...] to his medications today. Peripheral vascular disease ([facility] V24) The patient will continue to follow [...] Please pardon any grammatical or syntax errors. [facility] Cosigned by Liliana Green MD at 2024 12:19 PM EDT documented in this encounter Plan of Treatment Not on file documented as of this encounter Visit Diagnoses Diagnosis Coronary artery disease involving coronary bypass graft of venetie ira heart without angina pectoris- Primary Hx of CABG Postsurgical aortocoronary bypass status Old myocardial infarction Primary hypertension Unspecified essential hypertension Hyperlipidemia, unspecified hyperlipidemia type Peripheral vascular disease ([facility] V24) Unspecified peripheral vascular disease documented in this encounter Discontinued Medications Medication Sig Discontinue Reason Start Date End Da te nitroglycerin (NITROSTAT) 0.[address] 1 tablet (0.3 mg total) under the tongue every 5 (five) minutes if needed. Reorder 11/09/2023 2024 documented as of this encounter Care Teams Tube Rebuilder Relationship Specialty Start Date End Date Jimmy Awan MD [address] [place] [address] [address] [place] PCP - General 05/21/12 documented as of this encounter
== END 2024-12-30 13:51 | disposition home or self-care (01) ==
LOC: HO.HKA 13:36
PROVIDERS: PCP Internal Medicine; Visit Provider Internal Medicine Hypertension Specialist
DX: N18.32 Chronic kidney disease, stage 3b (principal); D64.9 Anemia, unspecified; E87.5 Hyperkalemia; I73.9 Peripheral vascular disease, unspecified; I25.10 Atherosclerotic heart disease of native coronary artery without angina pectoris; I65.22 Occlusion and stenosis of left carotid artery
CPT/HCPCS: 99214

== ENCOUNTER 2025-01-07 10:50 | Outpatient (REF) | payer MEDICARE, OTHER, SELFPAY ==
--- NOTE | ~2025-01-07 | CT_ITS ---
EXAMINATION: CT SOFT TISSUE NECK WITHOUT CONTRAST CLINICAL INFORMATION: Extrinsic left pharyngeal mass. COMPARISON: None available. TECHNIQUE: Helical imaging of the neck was performed in the axial plane without contrast. Multiplanar reformatted imaging was constructed from the axial data set. This CT examination was performed using dose optimization techniques as appropriate, variously including the following: *Automated exposure control *Adjustment of mA and/or kV according to patient size (this includes techniques or standardized protocols for targeted exams where dose is matched to indication/reason for exam; i.e. extremities or head) *Use of iterative reconstruction technique FINDINGS: Exam significantly limited without the benefit of IV contrast. Lymph Nodes: -Suspect necrotic lymph nodes in the level 2 region, both level 2B and level 5A. For example, a cystic mass just posterior to the left submandibular gland measures 2.8 x 2.3 x 3.8 cm (series 2, image 52; series 3, image 50). -More posteriorly, a cystic/necrotic lymph node in the left level 5A presumed lymph node is present measuring 2.7 x 2.2 x 2.8 cm. (Series 2, image 59). -There are surgical clips in the left level 2 region, suggesting possible prior lymph node dissection. Carotid Sheath Structures: -Mild carotid bulb calcifications bilaterally. Carotid sheath structures otherwise normal. Salivary Glands: -Fatty change of the parotid glands. -Normal submandibular glands. Tongue Base/Floor of Mouth: -There is an infiltrative mass in the left posterior tongue, extending into the left glossotonsillar sulcus and lateral and posterior pharyngeal wall both involving and just below the soft palate. This mass measures an estimated 4.0 x 3.1 x 4.5 cm (series 3, image 39; series 2, image 44). It is highly suspicious and extends throughout the genioglossus muscle on the left. There is mild shift of the median raphae of the tongue to the right. Nodular soft tissue extends to the base of the left tongue in the left preepiglottic space/vallecula (series 3, image 46). The left parapharyngeal fat plane has been displaced slightly laterally and anteriorly. Mucosal Space: -As above. Otherwise normal. Visceral Space: -Thyroid gland: Mildly atrophic. -Visceral space normal. -Larynx and true cords normal. Retropharangeal Space: - Normal. Parapharyngeal Fat Planes: -As above. The right is normal. Build Technician Spaces: -Normal. Anterior Cervical Space: -Normal. Imaged Intracranial Contents: -No mass effect or edema. Globes and Orbits: -Bilateral lens replacements. Otherwise normal. Paranasal Sinuses/Mastoids/Tympanic Spaces: -Paranasal sinuses are normally aerated bilaterally. -There is a left mastoid tip effusion. -The right mastoid is well pneumatized. -Tympanic spaces are aerated. Lung Apices and Superior Mediastinal Structures: -Imaged lung apices demonstrate a 1.4 cm groundglass nodule in the superior segment left lower lobe. -There is a groundglass nodule in the medial left apex measuring 4 mm (series 2, image 93). -There is mild centrilobular emphysema present. -Prior median sternotomy. Atheromatous calcification of the aortic arch and great vessels proximally. Bony Structures: -No suspicious bone lesions. No fractures. There are degenerative changes throughout the cervical spine. -Normal TM joints. -Median sternotomy wires. CT/CT soft tissue neck wo IV con IMPRESSION: Examination significantly limited without the benefit of IV contrast. 1. There is an infiltrative irregular mass centered within the left posterior tongue measuring approximately 4.0 x 3.1 x 4.5 cm, with involvement of the left lateral soft palate and posterior pharyngeal wall. See above for details. 2. There are at least 2 cystic masses in the left neck, level 2B and level 5B, presumably necrotic lymph nodes. See above for details. 3. No additional abnormal mass or lymphadenopathy. 4. Atrophic appearing thyroid gland. 5. Groundglass nodules in the upper lungs measuring up to 1.4 cm, for which follow-up imaging recommended. Electronically signed by: Ty Moralez MD 01/07/2025 12:04 PM EDT
--- OUTSIDE RECORDS SUMMARY | 2025-01-07 12:19 | XMS_ITS | Clinical Summary ---
Author Organization [facility], Address [address] [place] [address] Phone Care Team Providers Care Waiter/Waitress Third Class Name Role Phone Jimmy Awan MD Primary Care Provider [phone]- [phone] Allergies Active Allergy Reactions Criticality Noted Date [...] age to complete this topic Insurance Medicare [facility] Care Teams Waiter/Waitress Third Class Relationship Specialty Start Date End Date Jimmy Awan MD [address] [place] [address] PCP - General Internal Medicine 07/28/21
--- OUTSIDE RECORDS SUMMARY | 2025-01-07 12:19 | XMS_ITS | Clinical Summary ---
Author Organization [address] [place] [address] [place] [phone] Phone Care Team Providers Care Security System Technician Name Role Phone Jimmy Awan MD Primary [...] 24 hr tabletIndication s:Coronary artery disease of [place] artery of [place] heart with stable angina pectoris (CMS/[facility] V24) Take 1 tablet (30 mg total) [...] CABG Diabetes 1.5, managed as type 2 ([facility] V24, CM S/[facility] V28) 08/01/2021 Seizure disorder (CMS/[facility] V24, CMS/[facility] V28) 07/20 Hx of CABG 06/22/2021 Assessment [...] 6:55 PM EST): Type 2 diabetes mellitus ([facility] V24, [facility] V 28) 06/21/2021 Coronary artery disease invo lving coronary bypass graft of [place] heart without angina pectoris 10/28/2020 Assessment & [...] She reports having recent labs completed at [facility] and we will attempt to obtain these for review. Assessment & Plan (09/12/2024 6:55 PM EST): Blood pressure is favorable on current medical therapy; continue metoprolol addition to newly added isosorbide. We will attempt to get more with her recent labs from her PCPs office for review. Peripheral vascular disease ([facility] V24) 2020 Assessment & Plan (2024 12:12 PM EDT): The patient will continue to follow with vascular surgery as recommended. Assessment & Plan (09/12/2024 6:55 PM EST): The patient will continue to follow with vascular surgery as recommended. Hyperlipidemia 10/28/2020 Assessment & Plan (2024 12:12 PM EDT): The patient believes that she had a more recent lipid panel completed at [facility]; we will attempt to obtain these for [...] Description 2024 11:10 AM EDT Office Visit [facility] - [address] [place] [address] Clemencia Aviles NP Coronary artery disease involving coronary bypass graft of [place] heart without angina pectoris (Primary Dx); Hx of CABG; Old myocardial infarction; Primary hypertension; Hyperlipidemia, unspecified hyperlipidemia type; Peripheral vascular disease ([facility] V24) from Last 3 Months Surgical History [...] site debridement BYPASS GRAFT 09/10/2013 Left PROCEDURE: [place] AMPUTATION TOE METATARSOPHALANGEAL JOINT; COMMENT: 2nd toe CARDIAC CATHETERIZATION 07/02/2013 PROCEDURE: HISTORICAL CARDIAC CATH OTHER SURGICAL HISTORY 02/18/2013 PROCEDURE: [place] CORONARY ENDARTERCOMY OPEN ANY METHOD OTHER SURGICAL HISTORY 02/18/2013 PROCEDURE: [place] BYPASS W/VEIN FEMORAL-FEMORAL OTHER SURGICAL HISTORY 07/31/2012 PROCEDURE: HISTORY OTHER; COMMENT: Right carotid endarterectomy with patch angioplasty reconstruction CARDIAC CATHETERIZATION 05/21/2012 PROCEDURE: HISTORICAL CARDIAC CATH CHOLECYSTECTOMY PROCEDURE: HISTORICAL CHOLECYSTECTOMY Medical History Medical History Date Comments Fall 03/01/2022 DX:Fall Hematemesis DX:Hematemesis Left orbit fracture ([facility] V24, [facility] V28) DX:Left orbit fracture ([facility]) Upper GI bleed DX:Upper GI blee d Hemorrhagic shock ([facility] V 24, [facility] V28) DX:Hemorrhagic shock ([facility]) Acute kidney injury superimp osed on CKD ([facility] V24) DX:Acute kidney injury super imposed on CKD ([facility]) Hyponatremia DX:Hyponatremia Delirium DX:Delirium UTI (urinary tract infection) DX :UTI (urinary tract infection) Anemia DX:Anemia Claudication ([facility] V24) DX:Cl audication ([facility]) COPD (chronic obstructive pu lmonary disease) ([facility] V24, [facility] V28) DX:COPD (chronic o bstructive pulmonary disease) ([facility]) 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 ([facility] V 24, [facility] V28) DX: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 ([facility]) GERD (gastroesophageal reflu x disease) DX:GERD (gastroesophageal re flux disease) Hard of hearing DX:Hard of heari ng Neck strain DX:Neck strain Obesity DX:Obesity PONV (postoperative nausea a nd vomiting) DX:PONV (postoperative nause a and vomiting) Toe ulcer ([facility] V24, [facility] V28) DX:Toe ulcer ([facility]) Family History Medical History Relation Name Comments [...] age to complete this topic Insurance MEDICARE [facility] [address] [place] [address] Care Teams Security System Technician Relationship Specialty Start Date End Date Jimmy Awan MD [address] [place] PCP - General 05/21/12
--- OUTSIDE RECORDS SUMMARY | 2025-01-07 12:19 | XMS_ITS | Data Portability ---
Author Organization [facility] Address [address] [place] [address] Care Team Providers Care Continuous Improvement Facilitator Name Role Phone GAURAV ROMAN Referring Provider [phone] LILIANA GREEN OTHER Assessment Encounter Date Assessment [...] contr ast No observ ation record ed. [address] [facility] [address] [place], [address], 10/17/2021 14:29:22 Result Notes None recorded. Procedures Surgical History Date Name Laterality Status Provider Name and Address Organization Details Recorded Time 10/13/2021 DATA REVIEW completed Antony Hernandez MD [address] [place] [address] [place], [address], [facility]ly [facility] 10/13/2021 17:40:07 Imaging Results Imaging Date Name Status LastModified by Organiz ation Details LastModified Time 10/13/2021 CT, head, w/o contrast completed [address] [facility] [address], [place], [address], 10/17/2021 14:29:22 Procedure Notes None recorded. Medical Equipment None Reported. Allergies Allergen ID Allergen Name Allergen Category Reaction Reaction Severity Criticality Documentation Date Start Date Code Code System Note Provider Name and Address Organization Details Recorded Time 1213 Product containin g penicilli n (product) medicatio n Not available Not available Not available 10/13/2021 72875 8001 SNOMED [place] [facility] 2 11:19:23 1214 doxycycli ne Not available Not available Not available Not available 10/13/2021 3640 RxNorm [place] [facility] 2 11:22:18 1215 Keppra medicatio n Not available Not available Not available 10/13/2021 16541 7 RxNorm [place] [facility] 2 11:22:28 Medications Name Sig [...] Updated DateTime 10/13/2021 157.48 cm 27.1 kg/m2 35868.67 g 12 /min [facility] 10/13/2021 11:18:56 Social History Question Answer Notes LastModified by Organizat ion Details LastModified Time Tobacco Smoking Status Former Smoker [facility] null, [facility] 10/13/2021 11:24:52 What Is Your Level Of Caffeine Consumption? Occasional Information not available 10/13/2021 What Is The Highest Grade Or Level Of School You Have Completed Or The Highest Degree You Have Received? [id number] Information not available 10/13/2021 Which Of Your [...] Heartburn, acid reflux, GERD Y Diabetes Y COPD or emphysema Y Asthma Y High Cholesterol or Hyperlipidemia Y Gynecological HistoryNo gynecological history recorded. 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 Jermain Gonzales [id number] Jermain Gonzales 10/13/2021 2 [facility] [id number] 1 Jermain Gonzales [id number] Jermain Gonzales Notes Date Note Type Note [...] causing suspicion for seizure. Antony Hernandez MD [address] [place] [address] [place], [address], [facility] 10/13/2021 17:43:39 OBGyn Episode No OBEpisode recorded.
== END 2025-01-07 10:51 | disposition home or self-care (01) ==
LOC: HO.CT 10:50
PROVIDERS: PCP Internal Medicine; Visit Provider Nurse Practitioner Family
DX: J39.2 Other diseases of pharynx (principal)
CPT/HCPCS: 70490

== ENCOUNTER → 2025-01-07 10:53 | Outpatient (BNV) | payer MEDICARE, OTHER, SELFPAY | PROVIDERS: PCP Internal Medicine; Visit Provider Radiology Diagnostic Radiology | DX: D37.05 Neoplasm of uncertain behavior of pharynx (principal) | CPT/HCPCS: 70490 ==

== ENCOUNTER 2025-01-09 10:33 | Outpatient (REF) | payer MEDICARE, OTHER, SELFPAY ==
[2025-01-09 13:03] LABS: Hematocrit 37.7 % (37.0-47.0); Hemoglobin 12.3 g/dl (12.0-16.0); Mean Corpuscular HGB Conc 32.6 g/dl (31.0-35.0); Mean Corpuscular Hemoglobin 28.1 pg (27.0-33.0); Mean Corpuscular Volume 86.3 fL (80.0-98.0); Mean Platelet Volume 8.5 fL (9.4-12.3); Platelet Count 329 X10*3/uL (160-400); Red Blood Count 4.37 X10*6/uL (4.20-5.50); Red Cell Distribution Width 14.2 % (11.0-16.0)
[2025-01-09 13:25] LABS: Estimated Glomerular Filt Rate 31
== END 2025-01-09 10:34 | disposition home or self-care (01) ==
LOC: HO.LAB 10:33
PROVIDERS: PCP Internal Medicine; Visit Provider Nurse Practitioner Family
DX: K21.9 Gastro-esophageal reflux disease without esophagitis (principal); R10.11 Right upper quadrant pain; D64.9 Anemia, unspecified; K52.9 Noninfective gastroenteritis and colitis, unspecified; R59.9 Enlarged lymph nodes, unspecified; R13.12 Dysphagia, oropharyngeal phase
CPT/HCPCS: 36415; 82565; 85027; 99212

== ENCOUNTER 2025-01-09 10:33 | Outpatient (AMB) | payer MEDICARE, OTHER, SELFPAY ==
--- OUTSIDE RECORDS SUMMARY | 2025-01-09 10:39 | XMS_ITS | Data Portability ---
Author Organization Formerly [facility] [employer], [address] Address [address] [place] [place] [address] Care Team Providers Care Process Worker Name Role Phone GAURAV ROMAN Referring Provider [...] contr ast No observ ation record ed. [address] [facility] ([facility] [address] [place], [address], 10/17/2021 14:29:22 Result Notes None recorded. Procedures Surgical History Date Name Laterality Status Provider Name and Address Organization Details Recorded Time 10/13/2021 DATA REVIEW completed Antony Hernandez MD [address] [place] [address] [place], [address], Formerly [facility] 10/13/2021 17:40:07 Imaging Results Imaging Date Name Status LastModified by Organiz ation Details LastModified Time 10/13/2021 CT, head, w/o contrast completed [address] [facility] ([facility]) [address], [place], [address], 10/17/2021 14:29:22 Procedure Notes None recorded. Medical Equipment None Reported. Allergies Allergen ID Allergen Name Allergen Category Reaction Reaction Severity Criticality Documentation Date Start Date Code Code System Note Provider Name and Address Organization Details Recorded Time 1213 Product containin g penicilli n (product) medicatio n Not available Not available Not available 10/13/2021 92401 8001 SNOMED [place] [facility] 2 11:19:23 1214 doxycycli ne Not available Not available Not available Not available 10/13/2021 3640 RxNorm [place] [facility] 2 11:22:18 1215 Keppra medicatio n Not available Not available Not available 10/13/2021 97409 7 RxNorm [place] [facility] 2 11:22:28 Medications Name Sig Start [...] Updated DateTime 10/13/2021 157.48 cm 27.1 kg/m2 47899.67 g 12 /min [facility] 10/13/2021 11:18:56 Social History Question Answer Notes LastModified by Organizat ion Details LastModified Time Tobacco Smoking Status Former Smoker [facility] null, [facility] 10/13/2021 11:24:52 What Is Your Level Of Caffeine Consumption? Occasional Information not available 10/13/2021 What Is The Highest Grade Or Level Of School You Have Completed Or The Highest Degree You Have Received? 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 2228304 G40.209 Generalize d-onset seizures 3806011 G40.309 Acute cere brovascular insufficiency 99818224 I67.81 Health Concerns Section Related Observation LastModified by Organization Detai ls LastModified Time None Recorded Concern Status LastModified by Organization Details LastModified Time None Recorded Advance Directives Directive None Recorded Payers Encounter Date Sequence Insurance Name Policy Number Policy Jamil Covered Member ID Jamil Member ID Guarantor Name 10/13/2021 1 MEDICARE B-AK: [employer] Jermain Gonzales [id number] Jermain Gonzales 10/13/2021 2 [facility] [id number] Jermain Gonzales [id number] Jermain Gonzales Notes Date Note Type Note [...] causing suspicion for seizure. Antony Hernandez MD [address] [place] [address] [place], [address], Formerly [facility] 10/13/2021 17:43:39 OBGyn Episode No OBEpisode recorded.
--- NOTE | 2025-01-09 10:42 | MHC.OFFVIS ---
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 GERD mgmt + esophagitis. CC; C.O. nausea, intermittent GERD despite tx, throat soreness. Pt has been tx nausea with zofran which is still helpful. Pt also reports that her pantoprazole is typically effective but does experience reflux occasionally. Stull Hewer Required: No Accompanied by: Family/Other Allergies evolocumab [From Repatha SureClick] Allergy (Intermediate, Verified 01/09/25 10:48) Hives doxycycline Allergy (Mild, Verified 01/09/25 10:48) Vomiting levetiracetam [From Keppra] Allergy (Mild, Verified 01/09/25 10:48) Vomiting amoxicillin Allergy (Unknown, Verified 01/09/25 10:48) rash Penicillins Allergy (Unknown, Verified 01/09/25 10:48) rash prednisone Allergy (Unknown, Verified 01/09/25 10:48) rash ceftriaxone [From Rocephin] Allergy (Verified 01/09/25 10:48) Rash milk Allergy (Verified 01/09/25 10:48) Unknown omeprazole Adverse Reaction (Unknown, Verified 01/09/25 10:48) worsening heartburn ranitidine Adverse Reaction (Unknown, Verified 01/09/25 10:48) worsening heartburn, abdominal pain (ONLY to generic) HPI HPI 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 Will send her for x-ray of her neck and barium swallow. CBC recheck as patient reports to be feeling tired. Continue pantoprazole and sucralfate, however will consider decreasing pantoprazole to 20 mg next visit. Patient is agreeable to this plan and verbalizes understanding of instructions. She was given the opportunity to ask questions and all questions answered. ? Thank you for allowing me to participate in her care Orders Orders Complete Blood Count no Diff 11/11/24 K21.9, D64.9 XR soft tissue neck 11/11/24 R59.9 FL barium swallow 11/11/24 R13.10 Medications Refilled pantoprazole 40 mg PO DAILY 90 tabs 3RF K21.9 sucralfate 1 g PO BEDTIME 90 tabs 3RF 30 days TODAY'S VISIT Patient is here today as provider requested visit and to decide on next step. Last visit patient was sent for x-ray of the neck that was negative for any acute findings. Barium swallow was done on December 18 that showed possible mass in the left side of her pharynx just below her tongue. Patient continues to have trouble swallowing and left side that neck pain. The swelling has increased per patient and is visible today during her visit as well. Patient then was sent for CT of the neck that was just done couple of days go. Patient was unable to get a CT scan with IV contrast due to low GFR. CT scan showed mass involving lower left side of her neck extending to left side of the pharynx. Possibly necrotic lymph nodes. Patient denies choking episodes, however she reports that even drinking is causing her severe pain. Patient reports that when she coughs she spits small amount of blood. Call placed to ENT in [place]. I have tried to get patient in to be seen urgently the same day she had CT scan done on of this month. Request was made by this provider to speak directly to triage nurse who can urgently book appointment for this patient. Spoke with urgent merchandise flow manager who is was able to speak with 1 of the providers and was able to get us appointment for the patient. Appointment will be made for the at 14:30. [facility] Medical History Chronic kidney disease, stage 4 (severe) Chronic kidney disease, stage III (moderate) Atrophic vaginitis Orbital fracture Upper GI bleeding Hearing impairment Seizure Recurrent urinary tract infection Overweight (BMI 25.0-29.9) Vitamin D deficiency Allergic rhinitis Meralgia paresthetica of right side Anemia GERD without esophagitis Asthma Hyperkalemia Diabetic polyneuropathy associated with type 2 diabetes mellitus Peripheral vascular disease Pure hypercholesterolemia Benign essential hypertension Carotid atherosclerosis Coronary artery disease (~06/09/21) Type 2 diabetes mellitus with diabetic polyneuropathy Surgical History Hx of colonoscopy History of endoscopy S/P CABG x 4 (~06/09/21) History of cardiac catheterization (~12/2023) History of left-sided carotid endarterectomy S/P LASIK surgery History of right-sided carotid endarterectomy History of laparoscopic cholecystectomy Family History Father CVD (cardiovascular disease) Mother Stroke Brother CVD (cardiovascular disease) Esophageal cancer Social History Household Members: Children Housing: House Are you a primary professional healthcare representative to a significant other at home: No Do you presently have visiting nurse or other home services: No Alcohol intake: never Comment: cardiac Patient Tobacco Use Status: Former Tobacco user Tobacco use type: Cigarette e-Cigarette/Vaping Use: Never Used Second Hand Smoke Exposure: No Advance Directives Date on File: 01/11/22 service: No Current occupational status: retired 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 Cognitive needs: No Hearing needs: No Vision needs: No Review of Systems Const Denies weight gain and Denies weight loss ENT Reports no additional complaints, Reports dysphagia and Denies odynophagia Card Reports no additional complaints Resp Reports no additional complaints GI Denies abdominal pain, Denies belching, Denies melena, Denies bloating, Denies change in bowel habits, Reports dysphagia, Denies excessive flatus, Denies dyspepsia, Denies heartburn, Denies diarrhea, Denies loose stools, Denies nausea, Denies odynophagia and Denies vomiting Musc Reports no additional complaints Neuro Reports no additional complaints Psych Reports no additional complaints Endo Reports no additional complaints Physical Exam Vital Signs: Last Vital Signs Pulse 58 01/09/25 10:44 BP 144/76 H 01/09/25 10:44 Pulse Ox 97 01/09/25 10:44 Oxygen Delivery Method Room Air 01/09/25 10:44 BMI result Body Mass Index 27.4 Const General: healthy appearing and no acute distress Nutritional Appearance: obese Orientation/consciousness: patient oriented x3 Resp Effort & Inspection: normal respiratory effort, able to speak in complete sentences, no tracheal deviation and symmetric chest movement Auscultation: clear to auscultation bilaterally Cardio Rate: regular rate GI Inspection: Yes normal to inspection, No distended and Yes obesity Palpation (GI): Soft to palpation, not firm, nontender and No hepatosplenomegaly present Auscultation: normal bowel sounds General: Yes no CVA tenderness Back/Spine/Pelvis Back: no CVA tenderness Skin General skin exam: elasticity normal, turgor normal and dry skin Neuro General: patient oriented x3 Psych Appearance: grossly normal Mental Status: mental status grossly normal Results Reviewed Results Reviewed: X-RAY OF SOFT TISSUE AND NECK 11/11/2024 FINDINGS: AP and lateral views of the soft tissues of the neck are submitted. The epiglottis and aryepiglottic folds are unremarkable in appearance. The airway is patent. There is no prevertebral soft tissue swelling. There is a prevertebral calcification at the C3 level which appears to be related to the internal carotid artery. Multiple surgical clips are noted in the neck. XR/XR soft tissue neck IMPRESSION: Unremarkable examination of the soft tissues of the neck. BARIUM SWALLOW 12/18/2024 FINDINGS: Following oral administration of thick barium in upright view there is normal propagation of bolus from the oral cavity into the pharynx and esophagus. The bolus in the pharynx traverses predominantly from the right side suspicious for an extrinsic mass along the left pharynx. This also results in mild to moderate retention of barium within the right valleculae. The left relatively is shallow. On oral administration of sulci crackers coated barium there is normal oral mastication with propagation of bolus predominantly from the right side of the pharynx. There is a suspicion for left extrinsic pharyngeal mass. Correlate with CT neck is recommended. Patient had a history of esophageal ulcer treated in the past. There are median sternotomy sutures and mediastinal dusty from previous CABG. FLUOROSCOPY TIME: 2 minutes 20 seconds DOSE AREA PRODUCT: 883.6. 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 Differential diagnosis includes a recurrent mass, scar from previous surgery for ulceration or lymph node. Correlate with CT neck with contrast There is mild retention of barium in the right valleculae. The left valleculae is shallow. Rest of the barium swallow is unremarkable. CT SCAN OF THE NECK SOFT TISSUE 01/07/2025 FINDINGS: Exam significantly limited without the benefit of IV contrast. Lymph Nodes: -Suspect necrotic lymph nodes in the level 2 region, both level 2B and level 5A. For example, a cystic mass just posterior to the left submandibular gland measures 2.8 x 2.3 x 3.8 cm (series 2, image 52; series 3, image 50). -More posteriorly, a cystic/necrotic lymph node in the left level 5A presumed lymph node is present measuring 2.7 x 2.2 x 2.8 cm. (Series 2, image 59). -There are surgical clips in the left level 2 region, suggesting possible prior lymph node dissection. Carotid Sheath Structures: -Mild carotid bulb calcifications bilaterally. Carotid sheath structures otherwise normal. Salivary Glands: -Fatty change of the parotid glands. -Normal submandibular glands. Tongue Base/Floor of Mouth: -There is an infiltrative mass in the left posterior tongue, extending into the left glossotonsillar sulcus and lateral and posterior pharyngeal wall both involving and just below the soft palate. This mass measures an estimated 4.0 x 3.1 x 4.5 cm (series 3, image 39; series 2, image 44). It is highly suspicious and extends throughout the genioglossus muscle on the left. There is mild shift of the median raphae of the tongue to the right. Nodular soft tissue extends to the base of the left tongue in the left preepiglottic space/vallecula (series 3, image 46). The left parapharyngeal fat plane has been displaced slightly laterally and anteriorly. Mucosal Space: -As above. Otherwise normal. Visceral Space: -Thyroid gland: Mildly atrophic. -Visceral space normal. -Larynx and true cords normal. Retropharangeal Space: - Normal. Parapharyngeal Fat Planes: -As above. The right is normal. Real Estate Asset Manager Spaces: -Normal. Anterior Cervical Space: -Normal. Imaged Intracranial Contents: -No mass effect or edema. Globes and Orbits: -Bilateral lens replacements. Otherwise normal. Paranasal Sinuses/Mastoids/Tympanic Spaces: -Paranasal sinuses are normally aerated bilaterally. -There is a left mastoid tip effusion. -The right mastoid is well pneumatized. -Tympanic spaces are aerated. Lung Apices and Superior Mediastinal Structures: -Imaged lung apices demonstrate a 1.4 cm groundglass nodule in the superior segment left lower lobe. -There is a groundglass nodule in the medial left apex measuring 4 mm (series 2, image 93). -There is mild centrilobular emphysema present. -Prior median sternotomy. Atheromatous calcification of the aortic arch and great vessels proximally. Bony Structures: -No suspicious bone lesions. No fractures. There are degenerative changes throughout the cervical spine. -Normal TM joints. -Median sternotomy wires. CT/CT soft tissue neck wo IV con IMPRESSION: Examination significantly limited without the benefit of IV contrast. 1. There is an infiltrative irregular mass centered within the left posterior tongue measuring approximately 4.0 x 3.1 x 4.5 cm, with involvement of the left lateral soft palate and posterior pharyngeal wall. See above for details. 2. There are at least 2 cystic masses in the left neck, level 2B and level 5B, presumably necrotic lymph nodes. See above for details. 3. No additional abnormal mass or lymphadenopathy. 4. Atrophic appearing thyroid gland. 5. Groundglass nodules in the upper lungs measuring up to 1.4 cm, for which follow-up imaging recommended. Assessment & Plan Assessment & Plan (1) Anemia: Code(s): D64.9 - Anemia, unspecified Category: Medical Qualifiers: Anemia type: unspecified type Qualified Code(s): D64.9 - Anemia, unspecified (2) GERD (gastroesophageal reflux disease): Code(s): K21.9 - Gastro-esophageal reflux disease without esophagitis Qualifiers: Esophagitis presence: esophagitis presence not specified Qualified Code(s): K21.9 - Gastro-esophageal reflux disease without esophagitis (3) Postprandial diarrhea: Code(s): K52.9 - Noninfective gastroenteritis and colitis, unspecified (4) Swollen lymph nodes: Code(s): R59.9 - Enlarged lymph nodes, unspecified (5) Dysphagia: Code(s): R13.10 - Dysphagia, unspecified Qualifiers: Dysphagia type: oropharyngeal phase Qualified Code(s): R13.12 - Dysphagia, oropharyngeal phase Plan Will repeat CBC to make sure that she is not anemic. Referral to Pulmonary 1 nodule found on left upper lobe. Patient will be following up with ENT in [place]. Appointment was made for her for Sunday at 14:30. Suspicion of fast growing tumor or carcinoma. Patient was encouraged that if she will have trouble swallowing or even breathing she must go to ER. Patient was encouraged to drink liquids like protein shakes. Patient was encouraged to be careful when she swallows medication. This mass is fast growing non visible on neck x-ray November 11 patient will follow-up in the office in 2 months, sooner on as needed basis. She is agreeable to this plan and verbalizes understanding of instructions. She was given the opportunity to ask questions and all questions answered. Thank you for allowing me to participate in her care Orders: Orders Complete Blood Count no Diff 01/09/25 K21.9 - Gastro-esophageal reflux disease without esophagitis Referrals Pulmonology Referral J43.9 - Emphysema, unspecified, R91.1 - Solitary pulmonary nodule Coding Level of Care Code Est Pt Level 5 (15580) Complex EM visit Add On G2211 Diagnoses Anemia, unspecified type D64.9 Anemia type: unspecified type Gastroesophageal reflux disease, unspecified whether esophagitis present K21.9 Esophagitis presence: esophagitis presence not specified Postprandial diarrhea K52.9 Swollen lymph nodes R59.9 Oropharyngeal dysphagia R13.12 Dysphagia type: oropharyngeal phase Time Spent (min) 50 Comment 30 minutes spent with patient and additional 20 minutes spent reviewing her records
[2025-01-09 10:44] VITALS: BP 144/76; PULSE 58; O2SAT 97; BMI 27.4
== END 2025-01-09 12:18 | disposition home or self-care (01) ==
LOC: HO.HGI 10:33
PROVIDERS: PCP Internal Medicine; Visit Provider Nurse Practitioner Family
DX: D64.9 Anemia, unspecified (principal); K21.9 Gastro-esophageal reflux disease without esophagitis; K52.9 Noninfective gastroenteritis and colitis, unspecified; R59.9 Enlarged lymph nodes, unspecified; R13.12 Dysphagia, oropharyngeal phase
CPT/HCPCS: 99215; G2211

== ENCOUNTER 2025-01-27 14:46 | Outpatient (AMB) | payer MEDICARE, OTHER, SELFPAY ==
--- NOTE | 2025-01-27 14:54 | MHC.OFFVIS ---
Vital Signs 01/27/25 14:56 Height 5 ft 2 in Weight 145 lb 8.081 oz BMI 26.6 BP 130/50 L Blood Pressure Location Lt brachial Position Sitting Pulse 62 Pulse Source Pulse Oximeter Pulse Oximetry (%) 96 Oxygen Delivery Method Room Air Intake Visit Reasons: Abnormal CT scan Inventory Audit Clerk Required: No Accompanied by: Daughter Allergies evolocumab [From Repatha SureClick] Allergy (Intermediate, Verified 01/27/25 15:01) Hives doxycycline Allergy (Mild, Verified 01/27/25 15:01) Vomiting levetiracetam [From Keppra] Allergy (Mild, Verified 01/27/25 15:01) Vomiting amoxicillin Allergy (Unknown, Verified 01/27/25 15:01) rash Penicillins Allergy (Unknown, Verified 01/27/25 15:01) rash prednisone Allergy (Unknown, Verified 01/27/25 15:01) rash ceftriaxone [From Rocephin] Allergy (Verified 01/27/25 15:01) Rash milk Allergy (Verified 01/27/25 15:01) Unknown omeprazole Adverse Reaction (Unknown, Verified 01/27/25 15:01) worsening heartburn ranitidine Adverse Reaction (Unknown, Verified 01/27/25 15:01) worsening heartburn, abdominal pain (ONLY to generic) HPI Comments Details: The patient is here for pulmonary evaluation. The patient is an 84 year woman with a history of former smoking presenting with a pulmonary nodule. The patient apparently was evaluated for a mass in her tongue and also in the neck area. She underwent a CT scan of the neck which was personally by me demonstrating a masslike density involving the tongue and also the soft tissue of the neck. 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 In the meantime the lung windows did pickling tank operator a left upper lobe nodular density on the CT scan of the neck. I did review it myself. Appear to be subsolid in nature. She did have a CT scan back in 2022 of her cervical spine it did pickling tank operator a nodules well although difficult to compare because the different format. The patient has not had a formal CT scan of the chest. I will request 1 at this time. She denies any shortness of breath. She does have a cough. Will go ahead and follow-up after the CAT scan. In the meantime she is going to follow-up with ENT and also radiation oncology for treatment of the squamous cell carcinoma of the head and neck. [facility] Medical History (Updated 01/27/25 @ 22:01 by Heber Garcia MD) Head and neck cancer GABRIELA (obstructive sleep apnea) Pulmonary nodule Chronic kidney disease, stage 4 (severe) Chronic kidney disease, stage III (moderate) Atrophic vaginitis Orbital fracture Upper GI bleeding Hearing impairment Seizure Recurrent urinary tract infection Overweight (BMI 25.0-29.9) Vitamin D deficiency Allergic rhinitis Meralgia paresthetica of right side Anemia GERD without esophagitis Asthma Hyperkalemia Diabetic polyneuropathy associated with type 2 diabetes mellitus Peripheral vascular disease Pure hypercholesterolemia Benign essential hypertension Carotid atherosclerosis Coronary artery disease (~06/09/21) Type 2 diabetes mellitus with diabetic polyneuropathy Surgical History Hx of colonoscopy History of endoscopy S/P CABG x 4 (~06/09/21) History of cardiac catheterization (~12/2023) History of left-sided carotid endarterectomy S/P LASIK surgery History of right-sided carotid endarterectomy History of laparoscopic cholecystectomy Family History Father CVD (cardiovascular disease) Mother Stroke Brother CVD (cardiovascular disease) Esophageal cancer Social History Household Members: Children Housing: House Are you a primary career agent to a significant other at home: No Do you presently have visiting nurse or other home services: No Alcohol intake: never Comment: cardiac Patient Tobacco Use Status: Former Tobacco user Tobacco use type: Cigarette e-Cigarette/Vaping Use: Never Used Second Hand Smoke Exposure: No Advance Directives Date on File: 01/11/22 service: No Current occupational status: 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 Cognitive needs: No Hearing needs: No Vision needs: No Review of Systems Const Reports fatigue, Denies fever(s), Denies headache(s) and Reports weight loss ENT Details: (+) recurrent pain over the left side of the neck and over the left jaw area Reports dysphagia, Denies dizziness, Denies ear discharge, Reports otalgia (in the left ear, on and off - see HPI), Denies headache(s), Reports hearing loss, Reports neck pain (over the left side of the neck), Reports odynophagia and Denies sore throat Card Denies chest pain, Denies palpitations and Reports dyspnea on exertion (mild) Resp Denies chest congestion, Denies cough and Reports dyspnea on exertion (mild) GI Denies abdominal pain, Denies constipation, Reports dysphagia, Denies heartburn, Denies diarrhea, Denies nausea, Reports odynophagia and Denies vomiting Denies difficulty voiding, Denies nocturia and Denies dysuria Musc Denies back pain and Reports neck pain (over the left side of the neck) Skin/Breast Denies rash Neuro Denies dizziness and Denies headache(s) Endo Reports fatigue and Denies palpitations Physical Exam Vital Signs: Last Vital Signs Pulse 62 01/27/25 14:56 BP 130/50 L 01/27/25 14:56 Pulse Ox 96 01/27/25 14:56 Oxygen Delivery Method Room Air 01/27/25 14:56 BMI result Body Mass Index 26.6 Last Vital Signs Temp 96.8 F 03/16/22 07:18 Pulse 65 03/16/22 07:18 Resp 17 03/16/22 07:18 BP 158/67 H 03/16/22 07:18 Pulse Ox 95 03/16/22 07:18 O2 Del Method 03/16/22 07:18 BMI result Body Mass Index 25.6 Const General: comfortable and no acute distress Orientation/consciousness: patient oriented x3 HEENT Other: Unremarkable Head: Yes normal to inspection Neck Neck: Yes normal visual inspection Chest Chest palpation & inspection: normal inspection of the chest Resp Effort & Inspection: normal respiratory effort and prolonged expiratory phase Auscultation: diminished lung sounds Cardio Palpation: normal PMI Heart sounds: S1 normal heart sound present, S2 normal heart sound present, no gallops, no murmurs and no rubs GI Palpation (GI): Soft to palpation Back/Spine/Pelvis Other: unremarkable Skin General skin exam: no rashes or lesions noted Neuro General: patient oriented x3 Extrem General: Yes normal to inspection Psych Mental Status: mental status grossly normal Assessment & Plan Assessment & Plan (1) Pulmonary nodule: Code(s): R91.1 - Solitary pulmonary nodule Category: Medical (2) Asthma: Code(s): J45.909 - Unspecified asthma, uncomplicated Category: Medical Qualifiers: Asthma severity: moderate Asthma persistence: persistent Asthma complication type: uncomplicated Qualified Code(s): J45.40 - Moderate persistent asthma, uncomplicated (3) Head and neck cancer: Code(s): C76.0 - Malignant neoplasm of head, face and neck Category: Medical Plan F/U with ENT CT chest ANDRA as needed F/U 3-4 months Orders: Orders CT chest wo IV con Today R91.1 - Solitary pulmonary nodule Coding Level of Care Code New Pt Level 4 (06482) Diagnoses Pulmonary nodule R91.1 Moderate persistent asthma without complication J45.40 Asthma severity: moderate Asthma persistence: persistent Asthma complication type: uncomplicated Head and neck cancer C76.0 Time Spent (min) 37
[2025-01-27 14:56] VITALS: BP 130/50; PULSE 62; O2SAT 96; BMI 26.6
--- OUTSIDE RECORDS SUMMARY | 2025-01-27 17:48 | XMS_ITS | Data Portability ---
Author Organization [facility] [employer] Address [address] [facility] [place] [address] Care Team Providers Care Lab Intern Name Role Phone GAURAV ROMAN Referring Provider [...] contr ast No observ ation record ed. [email or web address] [facility] ([facility]) [address] [place], [address], 10/17/2021 14:29:22 Result Notes None recorded. Procedures Surgical History Date Name Laterality Status Provider Name and Address Organization Details Recorded Time 10/13/2021 DATA REVIEW completed Antony Hernandez MD [address] [place] [address] [place], [phone], [facility] 10/13/2021 17:40:07 Imaging Results None recorded. Procedure Notes None recorded. Medical Equipment None Reported. Allergies Allergen ID Allergen Name Allergen Category Reaction Reaction Severity Criticality Documentation Date Start Date Code Code System Note Provider Name and Address Organization Details Recorded Time 1213 Product containin g penicilli n (product) medicatio n Not available Not available Not available 10/13/2021 40147 8001 SNOMED [place] [facility] 2 11:19:23 1214 doxycycli ne Not available Not available Not available Not available 10/13/2021 3640 RxNorm [place] [facility] 2 11:22:18 1215 Keppra medicatio n Not available Not available Not available 10/13/2021 92193 7 RxNorm [place] [facility] 2 11:22:28 Medications Name Sig Start [...] Updated DateTime 10/13/2021 157.48 cm 27.1 kg/m2 41589.67 g 12 /min [place] [facility] 10/13/2021 11:18:56 Social History Question Answer Notes LastModified by Organizat ion Details LastModified Time Tobacco Smoking Status Former Smoker Ciera jenkins [facility] 10/13/2021 11:24:52 What Is Your Level Of Caffeine Consumption? Occasional Information not available 10/13/2021 What Is The Highest Grade Or Level Of School You Have Completed Or The Highest Degree You Have Received? [id number] Information not available 10/13/2021 Which Of Your [...] Code Diagnosis Note 4064 Antony Hernandez MD [facility] [address] [place] [address] [place] [address] 10/13/2021 10:47:12 10/17/2021 07:47:44 Complex partial seizure with impairment of consciousness 9085141 G40.209 Generalize d-onset seizures 1444316 G40.309 Acute cere brovascular insufficiency [id number] I67.81 Health Concerns Section Related Observation LastModified by Organization Detai ls LastModified Time None Recorded Concern Status LastModified by Organization Details LastModified Time None Recorded Advance Directives Directive None Recorded Payers Encounter Date Sequence Insurance Name Policy Number Policy Jamil Covered Member ID Jamil Member ID Guarantor Name 10/13/2021 1 [place]ICARE [place]: [employer] Jermain Gonzales [id number] Jermain Janet 10/13/2021 2 [facility] [id number] 1 Jermain Wards [id number] Jermain Wards Notes Date Note Type Note Provider Name [...] causing suspicion for seizure. Antony Hernandez MD [address] [place] [address] [place], [phone], [facility] 10/13/2021 17:43:39 OBGyn Episode No OBEpisode recorded.
== END 2025-01-27 15:21 | disposition home or self-care (01) ==
LOC: HO.HPS 14:46
PROVIDERS: PCP Internal Medicine; Referring Provider Nurse Practitioner Family; Visit Provider Hospitalist
DX: R91.1 Solitary pulmonary nodule (principal); J45.40 Moderate persistent asthma, uncomplicated; C76.0 Malignant neoplasm of head, face and neck
CPT/HCPCS: 99204

== ENCOUNTER → 2025-01-27 14:46 | Outpatient (BNVA) | payer MEDICARE, OTHER, SELFPAY | PROVIDERS: PCP Internal Medicine; Referring Provider Nurse Practitioner Family; Visit Provider Hospitalist | DX: J45.40 Moderate persistent asthma, uncomplicated (principal); R91.1 Solitary pulmonary nodule; C76.0 Malignant neoplasm of head, face and neck | CPT/HCPCS: 99202 ==

== ENCOUNTER 2025-03-24 07:55 | Outpatient (REF) | payer MEDICARE, OTHER, SELFPAY ==
--- OUTSIDE RECORDS SUMMARY | 2025-03-24 07:59 | XMS_ITS | Clinical Summary ---
Author Organization [address] [place] [address] [place] [phone] Phone Care Team Providers Care Employment Case Manager Name Role Phone Jimmy Awan MD [...] ophthalmic solution 1 Drop at bedtime. Active albuterol HFA (PROAIR HFA ; PROVENTIL HFA ; VENTOLIN HFA) 90 mcg/actuation inhaler Inhale 2 puffs by mouth every 4 (four) hours if needed. Active bempedoic acid (Nexletol) 180 mg tablet TAKE 1 TABLET BY MOUTH DAILY 30 tablet 6 5 Active nitroglycerin (NITROSTAT) 0.[address] 1 tablet (0.3 mg total) under the tongue every 5 (five) minutes if needed for chest pain. 25 tablet 2 5 01/24/20 26 Active aspirin 81 mg EC tablet Take 1 tablet (81 mg total) by mouth 1 (one) time each day. 5 Active isosorbide mononitrate (IMDUR) 30 mg 24 hr tabletIndication s:Coronary artery disease of [place] artery of [place] heart with stable angina pectoris (CMS/[facility] V24) TAKE 1 TABLET(30 MG) BY MOUTH 1 TIME EACH DAY. DO NOT CRUSH OR CHEW 90 tablet 3 5 Active oxyCODONE (ROXICODONE) 5 mg/5 mL solution Take 7.5 mL (7.5 mg total) by mouth every 6 (six) hours if needed for severe pain. Max Daily Amount: 30 mg Active clopidogreL (PLAVIX) 75 mg tablet Take 1 tablet (75 mg total) by mouth 1 (one) time each day. 03/20/20 25 Discontinu ed(Prescri cas Discontinu ed) Active Problems Problem Noted Date Diagnosed Date Angina pectoris ([facility] V24) 03/01/2022 Overview (07/15/2024): post CABG Diabetes 1.5, managed as type 2 ([facility] V24, CM S/[facility] V28) 08/01/2021 Seizure disorder ([facility] V24, [facility] V28) 07/20 Hx of CABG 06/22/2021 Assessment [...] 6:55 PM EST): Type 2 diabetes mellitus ([facility] V24, [facility] V 28) 06/21/2021 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 Assessment & Plan (09/12/2024 6:55 PM EST): Blood pressure is favorable on current medical therapy; continue metoprolol addition to newly added isosorbide. We will attempt to get more with her recent labs from her PCPs office for review. Peripheral vascular disease ([facility] V24) 2020 Assessment & Plan (2024 12:12 PM EDT): The patient will continue to follow with vascular surgery as recommended. Assessment & Plan (09/12/2024 6:55 PM EST): The patient will continue to follow with vascular surgery as recommended. Hyperlipidemia 10/28/2020 Assessment & Plan (2024 12:12 PM EDT): The patient believes that she had a more recent lipid panel completed at [facility]; we will attempt to obtain these [...] Encounters Date Type Department Care Team Description 03/19/[address] [facility] Cardiology [facility] [address] [facility] [address] [place] [phone] Alex Alba MD 02/24/2025 8:45 AM EDT Consult Orthopedic Surgery - [place] [address] [facility] [address] [place] [phone] Misael Martin DPM Controlled type 2 diabetes with neuropathy (CMS/HCC V24, CMS/HCC V28) (Primary Dx); Amputation of fifth toe of right foot ([facility] V24); Peripheral vascular disease, unspecified ([facility] V24); Neuropathy; Arthritis of both feet; Onychomycosis 01/19/[address] [facility] Cardiology [facility] [address] [place] [address] Clemencia Aviles NP 01/13/2025 Telephone [facility] [address] [place] [address] Clemencia Aviles NP medication 2024 11:10 AM EDT Office Visit [facility] [address] [facility] [address] [place] [address] Clemencia Aviles NP Coronary artery disease involving coronary bypass graft of [place] heart without angina pectoris (Primary Dx); Hx of CABG; Old myocardial infarction; Primary hypertension; Hyperlipidemia, unspecified hyperlipidemia type; Peripheral vascular disease ([facility] V24) from Last 3 Months Surgical History [...] site debridement BYPASS GRAFT 09/10/2013 Left PROCEDURE: LA AMPUTATION TOE METATARSOPHALANGEAL JOINT; COMMENT: 2nd toe CARDIAC CATHETERIZATION 07/02/2013 PROCEDURE: HISTORICAL CARDIAC CATH OTHER SURGICAL HISTORY 02/18/2013 PROCEDURE: LA CORONARY ENDARTERCOMY OPEN ANY METHOD OTHER SURGICAL HISTORY 02/18/2013 PROCEDURE: LA BYPASS W/VEIN FEMORAL-FEMORAL OTHER SURGICAL HISTORY 07/31/2012 PROCEDURE: HISTORY OTHER; COMMENT: Right carotid endarterectomy with patch angioplasty reconstruction CARDIAC CATHETERIZATION 05/21/2012 PROCEDURE: HISTORICAL CARDIAC CATH CHOLECYSTECTOMY PROCEDURE: HISTORICAL CHOLECYSTECTOMY Medical History Medical History Date Comments Fall 03/01/2022 DX:Fall Hematemesis DX:Hematemesis Left orbit fracture ([facility] V24, [facility] V28) DX:Left orbit fracture ([facility]) Upper GI bleed DX:Upper GI blee d Hemorrhagic shock ([facility] V 24, [facility] V28) DX:Hemorrhagic shock ([facility]) Acute kidney injury superimp osed on CKD ([facility] V24) DX:Acute kidney injury super imposed on CKD ([facility]) Hyponatremia DX:Hyponatremia Delirium DX:Delirium UTI (urinary tract infection) DX :UTI (urinary tract infection) Anemia DX:Anemia Claudication ([facility] V24) DX:Cl audication ([facility]) COPD (chronic obstructive pu lmonary disease) ([facility] V24, [facility] V28) DX:COPD (chronic o bstructive pulmonary disease) ([facility]) 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 ([facility] V 24, [facility] V28) DX: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 ([facility]) GERD (gastroesophageal reflu x disease) DX:GERD (gastroesophageal re flux disease) Hard of hearing DX:Hard of heari ng Neck strain DX:Neck strain Obesity DX:Obesity PONV (postoperative nausea a nd vomiting) DX:PONV (postoperative nause a and vomiting) Toe ulcer ([facility] V24, [facility] V28) DX:Toe ulcer ([facility]) Family History Medical History Relation Name Comments [...] EDT Inhaled Oxygen Concentration - - Weight 69.4 kg (153 lb) 02/24/2025 8:32 AM EDT Height 157.5 cm (5' 2.01 ) 02/24/2025 8:32 AM ED T Body Mass Index 27.98 02/24/2025 8:32 AM EDT Plan of Treatment Upcoming Encounters Date Type Department Care Team (Late st Contact Info) Description 05/28/2025 8:45 AM EDT Office Visit Orthopedic Surgery - [place] [address] [phone] Misael Martin DPM [address] [address] 07/13/2025 2:00 PM EST Office Visit [facility] [address] [phone] Alex Alba MD [address] [address] Health Maintenance Due Date Last Done Comments Diabetes: Annual GFR (Glomerular Filtration Rate) 1942 Diabetes: Annual Foot Exam 1952 Diabetes: Annual Retina Eye Exam 1952 Pneumococcal Vaccine: 50+ Years (1 of 2 - PCV) 1961 Zoster Vaccines (1 of 2) 1961 RSV Immunization Adult Patients (1 - 1-dose [...] Vaccine ( season) 2024 08/29/2021, 10/21/2020, 09/29/2020 Depression Screening 08/20/2024 Influenza Vaccine (#1) 2025 , 07/11/2023, 07/25/2021, Additional history exists DTaP,Tdap,and Td Vaccines (2 - Td or Tdap) 08/18/2026 08/18/2016 HIB Vaccines Aged Out No longer eligi [...] Procedure Name Priority Date/Time Associated Diagnosis Comments EXTERNAL CLINICAL LAB Routine 12/24/2024 2:05 PM EDT from Last 3 Months Results * External clinical lab (12/24/2024 2:05 PM EDT) us Historical Provider LAB BLOOD ORDERABLES Juani l Result from Last 3 Months Insurance MEDICARE [facility] [address] [place] [address] Care Teams Employment Case Manager Relationship Specialty Start Date End Date Jimmy Awan MD [address] [place] MD PCP - General 05/21/12
--- OUTSIDE RECORDS SUMMARY | 2025-03-24 07:59 | XMS_ITS | Clinical Summary ---
Author Organization [facility] Address [address] [place] [id number] Phone Care Team Providers Care Cash On Delivery Clerk Name Role Phone Jimmy Awan MD Primary Care Provider [phone] Allergies Active Allergy Reactions Criticality Noted Date Comments Doxycycline Dizziness High 08/15/2021 VOMITING Hydrocortisone Rash Medium 06/17/2021 Levetiracetam GI Upset High 08/15/2021 Mold Medium 06/17/2021 nasal congestion asthma flare up Penicillins Rash Low 06/17/2021 vomiting nausea Prednisone Rash Medium 06/17/2021 Medications clopidogrel (PLAVIX) 75 mg tablet Take 75 mg by mouth daily. 1 Active atorvastatin (LIPITOR) 80 MG tablet Take 80 mg by mouth daily. 1 Active metoprolol succinate (TOPROL-XL) 50 MG 24 hr tablet Take 50 mg by mouth daily. 1 Active NITROFURANTOIN ORAL Take 100 mg by mouth daily. 1 Active cholecalcifero l (CHOLECALCIFER OL) 25 MCG (1,000 unit) tablet Take 1,000 Units by mouth daily. 1 Active acetaminophen (TYLENOL) 325 mg tablet Take 975 mg by mouth every 6 (six) hours as needed for mild pain. 1 Active albuterol 2.5 mg /3 mL (0.083 %) nebulizer solution Take 2.5 mg by nebulization every 6 (six) hours as needed for shortness of breath/dyspnea or wheezing. 1 Active glyBURIDE micronized (GLYNASE) 6 MG tablet Take 2.5 mg by mouth daily with breakfast. 1 Active latanoprost (XALATAN) 0.005 % ophthalmic solution Place 1 drop into each eye nightly at bedtime. 1 Active metFORMIN (GLUCOPHAGE) 1000 MG tablet Take 1,000 mg by mouth 2 (two) times a day with meals. 1 Active nitroglycerin (NITROSTAT) 0.[address] 0.3 mg under the tongue every 5 (five) minutes as needed for chest pain. 1 Active nystatin (NYSTOP) powder Apply 1 application topically 2 (two) times a day. 1 Active ondansetron (ZOFRAN) 4 MG tablet Take 4 mg by mouth every 8 (eight) hours as needed for nausea. 1 Active pantoprazole (PROTONIX) 40 MG tablet Take 40 mg by mouth 2 (two) times a day. 2 Active tobramycin-dex amethasone (TOBRADEX) ophthalmic ointment Place 0.5 inches into the left eye every 4 (four) hours. 2 Active sucralfate (CARAFATE) 1 gram tablet Take 1 g by mouth daily. 2 Active amLODIPine (NORVASC) 10 MG tablet Take 5 mg by mouth daily. 1 021 Discontin ued(No longer taking) aspirin 81 mg chewable tablet Take 81 mg by mouth daily. 1 022 Discontin ued(No longer taking) torsemide (DEMADEX) 5 MG tablet Take 5 mg by mouth daily. 1 021 Discontin ued(No longer taking) levETIRAcetam (KEPPRA) 750 MG tablet Take 750 mg by mouth 2 (two) times a day. ON HOLD PER DAUGHTER D/T N&V 1 021 Discontin ued(Side Effects) Social History Tobacco Use Types Packs/Day Years Used Date Smoking Tobacco: Former Smokeless Tobacco: Never Alcohol Use Standard Drinks/Week Comments Not Currently 0 (1 standard drink = 0.6 oz pur e alcohol) Education Answer Date Recorded Are you interested in more education? Not on jessica e 12/15/2022 Are you concerned about learning? Not on file 12/15/2022 No 12/15/2022 No 12/15/2022 Digital Access Answer Date Recorded No 01/13/2023 No 01/13/2023 No 01/13/2023 Reliable internet access at home? Not on file 01/13/2023 Device with a working camera? Not on file Comments Unknown Sex and Gender Information Value Date Recorded Sex Assigned at Not on file Legal Sex Female 10:10 PM EDT Gender Identity Not on file Sexual Orientation Not on file Last Filed Vital Signs Vital Sign Reading Time Taken Comments Blood Pressure 124/68 02/03/2022 11:45 AM EDT Pulse 68 02/03/2022 11:45 AM EDT Temperature 37.1 C (98.7 F) 02/03/2022 11:45 AM EDT Respiratory Rate 16 02/03/2022 11:4 5 AM EDT Oxygen Saturation 98% 02/03/2022 11: 45 AM EDT Inhaled Oxygen Concentration - - Weight 63.9 kg (140 lb 12.8 oz) 01/17/2022 9:01 AM EDT Height 157.5 cm (5' 2 ) 09/21/2021 3:19 PM EST Body Mass Index 25.75 09/21/2021 3:19 PM EST Plan of Treatment Health Maintenance Due Date Last Done Comments CREATININE LEVEL 1942 PNEUMOCOCCAL VACCINES (50+ years) (1 of 1 - PCV) 1992 ZOSTER VACCINES (1 of 2) 1992 OSTEOPOROSIS SCREENING INITI AL (ONE-TIME) 12/30/2007 RSV VACCINE (1 - 1-dose 75+ series) 2017 DEPRESSION SCREENING 09/21/2022 09/21/2021 COVID-19 VACCINE (4 - 2023-2 5 season) 2024 08/29/2021, 10/21/2020, 09/29/2020 Adult Td,Tdap Booster 08/18/2026 08/18/2016 HEPATITIS A VACCINES Aged Out No long er eligible based on patient's age to complete this topic HIB VACCINES Aged Out No longer eligi ble based on patient's age to complete this topic MENINGOCOCCAL VACCINES (ACWY) Aged Out No longer eligible based on patient's age to complete this topic MENINGOCOCCAL VACCINES (B) Aged Out N o longer eligible based on patient's age to complete this topic Medical Devices Not on file Insurance MEDICARE PART A & B MEDICARE SUPPLEMENT MEDICARE PART A & B [facility] MEDICARE SUPPLEMENT MEDICARE PART A & B Member Subscriber Plan / Payer ( fective 2012-) Name:Jermain Gonzales Member ID:[id number] Relation to Subscriber:Self Name:Jermain Gonzales Subscriber ID:[id number] Payer ID:[id number] Group ID:Not on file Type:Medicare Address: [employer] [address] [place] [phone] [facility] MEDICARE SUPPLEMENT MEDICARE PART A & B [facility] MEDICARE SUPPLEMENT MEDICARE PART A & B MEDICARE SUPPLEMENT MEDICARE PART A & B Member Subscriber Plan / Payer ( fective 2012-Present) Name:Jermain Gonzales Member ID:[id number] Relation to Subscriber:Self Name:Jermain Gonzales Subscriber ID:[id number] Payer ID:[id number] Group ID:Not on file Type:Medicare Address: [employer] [address] MEDICARE SUPPLEMENT MEDICARE PART A & B [facility] MEDICARE SUPPLEMENT MEDICARE PART A & B [facility] MEDICARE SUPPLEMENT MEDICARE PART A & B MEDICARE SUPPLEMENT Care Teams Cash On Delivery Clerk Relationship Specialty Start Date End Date Jimmy Awan MD [address] [place] [address] [place] [address] PCP - General Internal Medicine 07/10/21 Additional Source Comments The information contained in this document represents components of the legal health record. It is not the complete legal health record.[facility]
--- OUTSIDE RECORDS SUMMARY | 2025-03-24 07:59 | XMS_ITS | Clinical Summary ---
Author Organization [facility], Address [address] [place] [address] Phone Care Team Providers Care Industrial Economics Teacher Name Role Phone Jimmy Awan MD Primary Care Provider [phone] Allergies Active Allergy Reactions Criticality Noted Date [...] Visual Foot Exam 07/22/2021 Influenza Vaccine (#1) 2025 Hepatitis B Vaccine Aged Out No longe r eligible based on patient's age to complete this topic Insurance Medicare [facility] Care Teams Industrial Economics Teacher Relationship Specialty Start Date End Date Jimmy Awan MD [address] [place] [address] PCP - General Internal Medicine 07/28/21
[2025-03-24 08:13] LABS: MANUAL DIFF FLAG NO
[2025-03-24 08:41] LABS: Hematocrit 36.6 % (37.0-47.0); Hemoglobin 11.8 g/dl (12.0-16.0); Imm Gran Abs Auto 0.02 X10*3/uL (0.00-0.03); Imm Gran Pct Auto 0.2 % (0.0-0.4); Lymphocytes Absolute Auto 0.4 X10*3/uL (1.2-4.9); Mean Corpuscular HGB Conc 32.2 g/dl (31.0-35.0); Mean Corpuscular Hemoglobin 28.4 pg (27.0-33.0); Mean Corpuscular Volume 88.0 fL (80.0-98.0); NRBC Abs Auto 0.000 X10*3/uL (0.0-0.012); NRBC Pct Auto 0.0 /100WBC (0.0-0.2); Platelet Count 284 X10*3/uL (160-400); Red Blood Count 4.16 X10*6/uL (4.20-5.50); White Blood Count 8.6 X10*3/uL (4.8-10.8)
[2025-03-24 08:50] LABS: Appearance Urine Turbid; Glucose Urine UA >=1000 mg/dL (Negative); PH 7.0 (5.0-9.0); Specific Gravity - Urine 1.025 (1.005-1.025); UMIC TRIGGER UACC YES
[2025-03-24 08:58] LABS: Hemoglobin A1C 124.2444 umol/L; Total Hemoglobin (HGBA1C) 3123.0854 umol/L
[2025-03-24 09:08] LABS: UACC Culture Trigger YES
[2025-03-24 09:18] LABS: Alanine Aminotransferase 16 U/L (0-31); Albumin Level 3.6 g/dL (3.5-5.0); Alkaline Phosphatase 80 U/L (39-117); Anion Gap 13 (12-20); Aspartate Amino Transferase 31 U/L (5-31); Blood Urea Nitrogen 34 mg/dL (9-16); Calcium 9.7 mg/dL (8.4-10.2); Carbon Dioxide 34 mmol/L (22-29); Chloride 92 mmol/L (96-108); Cholesterol 100 mg/dL (<200); Estimated Glomerular Filt Rate 40; HDL Cholesterol 36 mg/dL (>40); Potassium 4.3 mmol/L (3.3-5.1); Sodium 135 mmol/L (135-145); Total Protein 6.4 g/dL (6.5-8.0); Triglycerides 80 mg/dL (<150)
[2025-03-24 09:39] LABS: Microalbum/Creatinine Ratio Ur 29.6 ug/mg cr (<30)
[2025-03-24 09:42] LABS: Folate 10.0 ng/mL (> or = 4.0); Vitamin B12 811 pg/mL (200-900)
== END 2025-03-24 07:56 | disposition home or self-care (01) ==
LOC: HO.LAB 07:55
PROVIDERS: Visit Provider Internal Medicine
DX: E11.9 Type 2 diabetes mellitus without complications (principal); E53.8 Deficiency of other specified B group vitamins; E78.00 Pure hypercholesterolemia, unspecified; D64.9 Anemia, unspecified; E55.9 Vitamin D deficiency, unspecified
CPT/HCPCS: 36415; 80053; 80061; 81001; 82043; 82306; 82570; 82607; 82746; 83036; 84443; 85025; 87086; 87088; 87186

== ENCOUNTER 2025-03-30 10:54 | Outpatient (AMB) | payer MEDICARE, OTHER, SELFPAY ==
[2025-03-30 11:13] VITALS: BP 110/60; PULSE 73; O2SAT 92; BMI 24.3
--- NOTE | 2025-03-30 11:13 | A.OFFPC_ITS ---
Vital Signs 03/30/25 11:13 Height 5 ft 2 in Weight 133 lb 2 oz BMI 24.3 BP 110/60 Blood Pressure Location Lt brachial Position Sitting Pulse 73 Pulse Source Pulse Oximeter Pulse Oximetry (%) 92 Oxygen Delivery Method Room Air Intake Visit Reasons: 3 months [employer] Required: No Accompanied by: Self / Same As Patient Allergies evolocumab (From Repatha SureClick) Allergy (Intermediate, Verified 03/30/25 11:40) Hives doxycycline Allergy (Mild, Verified 03/30/25 11:40) Vomiting levetiracetam (From Keppra) Allergy (Mild, Verified 03/30/25 11:40) Vomiting amoxicillin Allergy (Unknown, Verified 03/30/25 11:40) rash Penicillins Allergy (Unknown, Verified 03/30/25 11:40) rash prednisone Allergy (Unknown, Verified 03/30/25 11:40) rash ceftriaxone (From Rocephin) Allergy (Verified 03/30/25 11:40) Rash milk Allergy (Verified 03/30/25 11:40) Unknown omeprazole Adverse Reaction (Unknown, Verified 03/30/25 11:40) worsening heartburn ranitidine Adverse Reaction (Unknown, Verified 03/30/25 11:40) worsening heartburn, abdominal pain (ONLY to generic) Medication List - Last Reconciled 03/30/25 by Jimmy Awan MD albuterol sulfate 2.5 mg (3 mL) inhalation QID PRN albuterol sulfate 90 mcg/actuation 2 puffs inhalation Q6H PRN 30 days aspirin 81 mg PO DAILY blood sugar diagnostic (FreeStyle Lite Strips) As directed- to test blood sugar TID dapagliflozin propanediol 10 mg PO DAILY gabapentin 300 mg PO BEDTIME glyburide 5 mg in AM and 2.5 mg in PM orally BID 90 days isosorbide mononitrate ER 30 mg PO DAILY lancets (FreeStyle Lancets) As directed once a day latanoprost 0.005% 1 drp ophthalmic (eye) BEDTIME loratadine 10 mg PO DAILY PRN 90 days NS metoprolol succinate ER 50 mg PO DAILY nitroglycerin mg sublingual ondansetron 4 mg PO Q8H PRN 15 days oxycodone 7.5 mg PO Q6H PRN pantoprazole 40 mg PO DAILY sennosides (senna) 10 mL PO BID PRN sucralfate 1 g PO BEDTIME 30 days sucralfate malate, polymerized 10 mL mucous membrane BID triamcinolone acetonide 0.1% 1 appl topical BID Tobacco use date assessed: 03/30/25 Fall risk assessment: No Falls in past year Last assessed Fall Risk: 03/30/25 Dental Screening Dental Screen Date: 03/30/25 Did you have a dental visit in the last 12 months?: Yes Did you have a dental problem in the last 6 months where you did not have access to dental care?: No Was dental information given to patient?: Patient has dentist HPI 3 months HPI Details Patient comes in today for her follow up visit She is currently undergoing radiation therapy for her 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; was advised that she is not a candidate for surgery or chemotherapy due to her preexisting medical conditions and significant cardiac Hx States that she is going for radiation Tx 5 days a week and each session lasts for about 15 minutes She will undergo radiation Tx for a total of 7 weeks, after which she will be reevaluated She is currently having difficulty swallowing and all of her feedings as well as her medications have been or are being switched over to liquid formulations as much as possible She presently still has some medications that do not have liquid formulations, including her Farxiga, and she would like to know what to do about this on the days she cannot swallow anything that is not liquid States that she was advised by Dr. lAba to just skip the medication if she is unable to swallow it but was also advised to speak to her PCP about this first Patient has also lost a lot of weight lately (at least 12 pounds) and is now on a nutritional supplement (DiabeticSource AC) that she takes up to 5 cartons/packs a day Reports that she feels fatigued often but denies any headaches or dizziness; denies any fever Denies any chest pains, no increased SOB No nausea/vomiting, no abdominal pain No change in bowel habits noted She had her follow up labs done last week - to discuss her results [facility] Medical History (Updated 03/30/25 @ 14:55 by Jimmy Awan MD) Squamous cell carcinoma of base of tongue Head and neck cancer GABRIELA (obstructive sleep apnea) Pulmonary nodule Chronic kidney disease, stage 4 (severe) Chronic kidney disease, stage III (moderate) Atrophic vaginitis Orbital fracture Upper GI bleeding Hearing impairment Seizure Recurrent urinary tract infection Overweight (BMI 25.0-29.9) Vitamin D deficiency Allergic rhinitis Meralgia paresthetica of right side Anemia GERD without esophagitis Asthma Hyperkalemia Diabetic polyneuropathy associated with type 2 diabetes mellitus Peripheral vascular disease Pure hypercholesterolemia Benign essential hypertension Carotid atherosclerosis Coronary artery disease (~06/09/21) Type 2 diabetes mellitus with diabetic polyneuropathy Surgical History Hx of colonoscopy History of endoscopy S/P CABG x 4 (~06/09/21) History of cardiac catheterization (~12/2023) History of left-sided carotid endarterectomy S/P LASIK surgery History of right-sided carotid endarterectomy History of laparoscopic cholecystectomy Family History Father CVD (cardiovascular disease) Mother Stroke Brother CVD (cardiovascular disease) Esophageal cancer Social History Household Members: Children Housing: House Are you a primary manager long term care to a significant other at home: No Do you presently have visiting nurse or other home services: No Alcohol intake: never Comment: cardiac Patient Tobacco Use Status: Former Tobacco user Tobacco use type: Cigarette e-Cigarette/Vaping Use: Never Used Second Hand Smoke Exposure: No Advance Directives Date on File: 01/11/22 service: No Current occupational status: retired 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 1. Little interest or pleasure in doing things: several days 2. Feeling down, depressed, or hopeless: not at all 3. Trouble falling or staying asleep, or sleeping too much: more than half the days 4. Feeling tired or having little energy: nearly every day 5. Poor appetite or overeating: nearly every day 6. Feeling bad about yourself - or that you are a failure or have let yourself or your family down: not at all 7. Trouble concentrating on things, such as reading the newspaper or watching television: not at all 8. Moving or speaking so slowly that other people could have noticed. Or the opposite - being so fidgety or restless that you have been moving around a lot more than usual: not at all 9. Thoughts that you would be better off or of hurting yourself in some way: not at all Total score: 9 Depression Screening Interpretation: Positive Depression Screening Follow-up: Follow-up Visit Requested Depression Screening Done: Yes 32661 - PHQ-9 Billing: Yes Source: Developed by Drs. Aquiles Alford, Yohana Coto, Jay Jay Metz and colleagues, with an educational yessi from [employer]. Thrive Questionnaire Date Thrive assessed: 03/30/25 I am a: Patient What is your living situation today?: I have a steady place to live Within the past 12 months, did the food you bought not last and you didn't have the money to get more?: Never true Within the past 12 months, did you worry whether your food would run out before you got money to buy more?: Never true Do you have trouble paying for medicines?: Yes Do you have trouble getting transportation to medical appointments?: No Do you have trouble paying your heating and electricity bill?: I choose not to answer this question Do you have trouble taking care of your child, family member or friend?: No Do you have trouble with day-to-day activities such as bathing, preparing meals, shopping, managing finances, etc.?: Yes Are you currently unemployed and looking for a job?: No Are you interested in more education?: No Please select the resources that you would like help with: None Currently or been in a relationship where the following occur: No concerns reported THRIVE Score: 0 AUDIT C Alcohol Use Questionnaire (AUDIT-C) 1. How often do you have a drink containing alcohol?: Never 3. How often do you have six or more drinks on one occasion?: Never Total Score: 0 Score Reviewed/Action Taken: Yes GALILEA-7 AMB Questionnaire GALILEA-7 Date GALILEA - 7 assessed: 03/30/25 Feeling nervous, anxious, or on edge: 1 = Several days Not being able to stop or control worryin = Several days Worrying too much about different things: 1 = Several days Trouble relaxin = More than half the days Being so restless that it is hard to sit still: 0 = Not at all Becoming easily annoyed or irritable: 1 = Several days Feeling afraid as if something awful might happen: 0 = Not at all Total GALILEA-7 score (0-4 normal; 5-9 mild; 10-14 moderate; 15-21 severe): 6 Source: Developed by Drs. Aquiles Alford, Yohana Coto, Jay Jay Metz and colleagues, with an educational yessi from [employer]. Review of Systems Const Denies chills, Reports difficulty sleeping (at times), Reports fatigue, Denies fever(s), Denies headache(s) and Reports weight loss ENT Details: (+) recurrent pain over the left side of the neck and over the left jaw area Reports dysphagia (unable to swallow most solids now), Denies dizziness, Reports otalgia (in the left ear, on and off - see HPI), Denies headache(s), Reports hearing loss, Reports neck pain (over the left side of the neck), Reports odynophagia and Denies sore throat Card Denies chest pain, Denies palpitations and Reports dyspnea on exertion (mild) Resp Denies chest congestion, Denies cough and Reports dyspnea on exertion (mild) GI Denies abdominal pain, Denies constipation, Reports dysphagia (unable to swallow most solids now), Denies heartburn, Denies diarrhea, Denies nausea, Reports odynophagia and Denies vomiting Denies difficulty voiding, Denies nocturia and Denies dysuria Musc Denies back pain and Reports neck pain (over the left side of the neck) Skin/Breast Denies rash Neuro Denies dizziness and Denies headache(s) Endo Reports fatigue and Denies palpitations Physical exam (Primary Care) Vital Signs: Last Vital Signs Pulse 73 03/30/25 11:13 BP 110/60 03/30/25 11:13 Pulse Ox 92 03/30/25 11:13 Oxygen Delivery Method Room Air 03/30/25 11:13 BMI result Body Mass Index 24.3 Tobacco/Smoking Status: Tobacco use Status Tobacco use date assessed 03/30/25 03/30/25 11:15 Patient Tobacco Use Status Former Tobacco user 03/30/25 11:15 Tobacco use type Cigarette 03/30/25 11:15 e-Cigarette/Vaping Use Never Used 03/30/25 11:15 PHQ-9: PHQ-9 Score PHQ-9: Total score 9 03/30/25 14:42 Depression Screening Interpretation: Positive Depression Screening Follow-up: Follow-up Visit Requested Thrive Assessment: Date of Thrive Assessment Date Thrive assessed 03/30/25 03/30/25 11:15 Currently or been in a relationship where the following occur: No concerns reported Const General: no acute distress and alert HENMT Other: (+) tenderness on palpation over the left side of the neck and over the left p reauricular area and the left TMJ area Ears: TM's normal bilaterally and EAC's normal Throat: Yes posterior oropharynx normal and Yes tonsils normal (no TP congestion noted) Neck Other: (+) large, slightly tender palpable mass on the left side of the neck Thyroid: Thyroid normal Resp Auscultation: clear to auscultation bilaterally, no rales and no wheezes Cardio Rate: regular rate Rhythm: regular rhythm Heart sounds: no murmurs GI Palpation (GI): Soft to palpation and nontender Auscultation: normal bowel sounds General: Yes no CVA tenderness Back/Spine/Pelvis Back: no CVA tenderness Thoracic/Lumbar Spine: No lumbar spinal tenderness Skin Rashes: no rashes Extrem General: Yes no clubbing, cyanosis or edema Results Reviewed Results Reviewed: Laboratory Tests 03/24/25 03/24/25 08:05 08:12 WBC 8.6 Hgb 11.8 L Hct 36.6 L Plt Count 284 Sodium 135 Potassium 4.3 Creatinine 1.29 Estimated GFR 40 Fasting Glucose 219 H Hemoglobin A1c % 5.8 Calcium 9.7 D AST 31 ALT 16 Triglycerides 80 Cholesterol 100 LDL Cholesterol, Calc 48 HDL Cholesterol 36 L Vitamin B12 811 25-OH Vitamin D Total 64.8 TSH 1.28 Ur Specific [place] 1.025 Urine Protein 30 (1+) H Urine Glucose (UA) >=1000 H Urine Blood Small (1+) H Urine Nitrite Negative Ur Leukocyte Esterase Large (3+) H Urine WBC >50 H Microalb/Creat Ratio 29.6 H Coding Level of Care Code Est Pt Level 4 (94007) Diagnoses Squamous cell carcinoma of base of tongue C01 Coronary artery disease involving [place] coronary artery of [place] heart without angina pectoris I25.10 Associated angina: without angina Coronary Disease-Associated Artery/Lesion type: [place] artery [place] vs. 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 termite control representative insulin use: without chcf use Diabetic polyneuropathy associated with type 2 diabetes mellitus E11.42 Stage 3b chronic kidney disease N18.32 Chronic kidney disease stage 3 subtype: stage 3b (GFR 30-44) Anemia, unspecified type D64.9 Anemia type: unspecified type Moderate persistent asthma without complication J45.40 Asthma complication type: uncomplicated Asthma persistence: persistent Asthma severity: moderate Allergic rhinitis, unspecified seasonality, unspecified trigger J30.9 Allergic rhinitis seasonality: unspecified Allergic rhinitis trigger: unspecified Vitamin D deficiency E55.9 Seizure R56.9 Weight loss R63.4 Additional Codes PHQ-9 - 32608 - PHQ-9 Billing: Yes ([id number]) Assessment & Plan Assessment & Plan (1) Squamous cell carcinoma of base of tongue: Code(s): C01 - Malignant neoplasm of base of tongue Category: Medical Plan: Patient is currently undergoing radiation therapy for her 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; was advised that she is not a candidate for surgery or chemotherapy due to her preexisting medical conditions and significant cardiac Hx States that she is now going for radiation Tx 5 days a week and each session lasts for about 15 minutes She will undergo radiation Tx for a total of 7 weeks, after which she will be reevaluated by ENT/oncology (2) Coronary artery disease: Onset Date: ~06/09/21 Comment: S/P stenting of ostial LAD; S/P CABG x 4 (RODRIGUEZ-mid LAD, SVG-PLV, left radial artery-OM, SVG-diag) on 06/09/21 Code(s): I25.10 - Atherosclerotic heart disease of [place] coronary artery without angina pectoris Category: Medical Qualifiers: Associated angina: without angina Coronary Disease-Associated Artery/Lesion type: [place] artery [place] vs. transplanted heart: [place] heart Qualified Code(s): I25.10 - Atherosclerotic heart disease of [place] coronary artery without angina pectoris Plan: S/P CABG x 4 in May 2021 She reportedly had an angiogram/cardiac cath done at [facility] last year (2023) and was advised that she has (+) occluded SVG to PL but there are no options for percutaneous revascularization of this graft and she should just continue with aggressive medical management Continue Metoprolol ER 50 mg QD and Aspirin 81 mg QD - Aspirin was previously discontinued due to her upper GI bleeding but due to her increasing difficulty swallowing currently, cardiology started her back on low dose Aspirin QD and stopped her Clopidogrel 75 mg QD instead Continue Isosorbide Mononitrate ER 30 mg QD for her recurrent chest pains/discomfort a few months ago Patient also has NTG 0.4 mg tablets to take SL PRN for chest pains Patient is currently asymptomatic on her present medications from a cardiac standpoint Follow up with cardiology (Dr. Alba) as scheduled (3) Carotid atherosclerosis: Comment: S/P left carotid revascularization and endarterectomy in 2019 Code(s): I65.29 - Occlusion and stenosis of unspecified carotid artery Category: Medical Qualifiers: Laterality: left Qualified Code(s): I65.22 - Occlusion and stenosis of left carotid artery Plan: Continue Aspirin 81 mg QD; Clopidogrel was discontinued due to her worsening dysphagia lately She had a repeat carotid US done a couple of years ago that reportedly came out stable with no significant disease progression Follow up with vascular surgery (Dr. Jesus) as scheduled (4) Peripheral vascular disease: Code(s): I73.9 - Peripheral vascular disease, unspecified Category: Medical Plan: Follow up with vascular surgery as scheduled (5) Pure hypercholesterolemia: Code(s): E78.00 - Pure hypercholesterolemia, unspecified Category: Medical Plan: Results of her labs done last week reviewed and discussed with patient Reinforced low cholesterol diet Continue Atorvastatin 80 mg QD and Ezetimibe 10 mg QD Will recheck her labs and fasting lipids in 3 months for follow up (6) Benign essential hypertension: Code(s): I10 - Essential (primary) hypertension Category: Medical Plan: Reinforced low-sodium diet - goal is systolic BP of at least 120 to 130 mm or less due to her comorbidities Continue Metoprolol ER 50 mg QD; Losartan was previously discontinued due to hyperkalemia Amlodipine 5 mg was also discontinued likely due to side effects (edema) (7) Type 2 diabetes mellitus with diabetic polyneuropathy: Code(s): E11.42 - Type 2 diabetes mellitus with diabetic polyneuropathy Category: Medical Qualifiers: 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 termite control representative insulin use: without termite control representative use Qualified Code(s): E11.42 - Type 2 diabetes mellitus with diabetic polyneuropathy Plan: Her HgbA1c was at 5.8% on her labs done last week (this was previously at 6.4% a few months ago) - goal is < 7.0% Reinforced diabetic diet She was taken OFF Metformin a few months ago due to her declining renal function and is currently on Farxiga 10 mg QD and Glyburide 5 mg Q AM and 2.5 mg Q PM but she is now also having trouble swallowing her Farxiga tablet She has been advised that short-term, she can just skip her Farxiga on the days that she has trouble swallowing them She was also seeing a mortising machine operator when needed to help advise her on how to navigate her diet with all of her comorbidities (8) Diabetic polyneuropathy associated with type 2 diabetes mellitus: Code(s): E11.42 - Type 2 diabetes mellitus with diabetic polyneuropathy Category: Medical Plan: Continue Oxycodone 5 mg 2 to 3 times a day ONLY NEEDED for severe pain Will consider starting her on Gabapentin if her symptoms progress or worsen (9) Chronic kidney disease, stage III (moderate): Code(s): N18.30 - Chronic kidney disease, stage 3 unspecified Category: Medical Qualifiers: Chronic kidney disease stage 3 subtype: stage 3b (GFR 30-44) Qualified Code(s): N18.32 - Chronic kidney disease, stage 3b Plan: Her serum creatinine and GFR appears to have stabilized lately on her recent labs Follow up with nephrology as scheduled Will continue to monitor GFR and renal function regularly (10) Anemia: Code(s): D64.9 - Anemia, unspecified Category: Medical Qualifiers: Anemia type: unspecified type Qualified Code(s): D64.9 - Anemia, unspecified Plan: Stable - was most likely multifactorial, including due to upper GI bleeding a couple of years ago that required Hemospray and 2 units of PRBC Will continue to monitor her CBC regularly Follow up with hematology (Dr. Vazquez) as scheduled (11) Asthma: Code(s): J45.909 - Unspecified asthma, uncomplicated Category: Medical Qualifiers: Asthma complication type: uncomplicated Asthma persistence: persistent Asthma severity: moderate Qualified Code(s): J45.40 - Moderate persistent asthma, uncomplicated Plan: Controlled Continue Albuterol HFA 2 puffs 4 times a day as needed Patient also has a nebulizer that she uses (with Albuterol solution 0.083%) up to 4 times a day when needed (12) Allergic rhinitis: Code(s): J30.9 - Allergic rhinitis, unspecified Category: Medical Qualifiers: Allergic rhinitis seasonality: unspecified Allergic rhinitis trigger: unspecified Qualified Code(s): J30.9 - Allergic rhinitis, unspecified Plan: Continue Loratadine 10 mg QD PRN (13) Vitamin D deficiency: Code(s): E55.9 - Vitamin D deficiency, unspecified Category: Medical Plan: Continue Vitamin D3 1000 units QD (14) Seizure: Code(s): R56.9 - Unspecified convulsions Category: Medical Plan: This was most likely due to (adverse reaction from) Doxycycline; she has had no recurrence of seizures since her discharge from [facility] a couple of years ago CTA of the head/neck and MRI of the brain done back then came out negative EEG done showed mild to moderate background slowing with occasional triphasic waves but no epileptiform activity was noted Neurology (Dr. Hernandez) thinks that patient actually had a TIA instead of a seizure (15) Weight loss: Code(s): R63.4 - Abnormal weight loss Category: Medical Plan: Patient has lost over 12 pounds in the past 2 months alone, most likely due to her dysphagia Continue DiabeticSource AC up to 5 packs a day for nutritional supplementations Patient's daughter is instructed to try weighing patient more often to help better track and monitor her weight Plan Follow up in 3 months Orders: Orders Complete Blood Count Auto Diff 3 Months D64.9 - Anemia, unspecified Lipid Panel 3 Months E78.00 - Pure hypercholesterolemia, unspecified TSH reflex Free T4 3 Months E78.00 - Pure hypercholesterolemia, unspecified Vitamin B12 and Folate 3 Months E53.8 - Deficiency of other specified B group vitamins Hemoglobin A1c 3 Months E11.9 - Type 2 diabetes mellitus without complications Comprehensive [place]. Panel Fast 3 Months E78.00 - Pure hypercholesterolemia, unspecified Microalbumin, Random (w Creat) 3 Months E11.9 - Type 2 diabetes mellitus without complications UA CC w/rflx Micro + Cult 3 Months R30.0 - Dysuria Vitamin D 25-OH Total 3 Months E55.9 - Vitamin D deficiency, unspecified
--- OUTSIDE RECORDS SUMMARY | 2025-03-30 11:37 | XMS_ITS | Clinical Summary ---
Author Organization [address] [place] [address] [place] [phone] Phone Care Team Providers Care Hose Maker Name Role Phone Jimmy Awan MD Primary Care Provider [phone] Allergies Active Allergy Reactions Criticality Noted Date [...] 24 hr tabletIndication s:Coronary artery disease of [place] artery of [place] heart with stable angina pectoris (CMS/[facility] V24) TAKE 1 TABLET(30 MG) BY MOUTH [...] Problem Noted Date Diagnosed Date Angina pectoris ([facility] V24) 03/01/2022 Overview (07/15/2024): post CABG Diabetes 1.5, managed as type 2 ([facility] V24, CM S/[facility] V28) 08/01/2021 Seizure disorder ([facility] V24, [facility] V28) 07/20 Hx of CABG 06/22/2021 Assessment & Plan (2024 12:12 PM EDT): Assessment & Plan (09/12/2024 6:55 PM EST): FRAKNLIN (dyspnea on exertion) 06/22/2021 Carotid artery occlusion 06/21/2021 Overview (07/15/2024): Last Assessment & Plan: The patient continues to follow with vascular surgery as recommended. 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 Assessment & Plan (09/12/2024 6:55 PM EST): Blood pressure is favorable on current medical therapy; continue metoprolol addition to newly added isosorbide. We will attempt to get more with her recent labs from her PCPs office for review. Peripheral vascular disease ([facility] V24) 2020 Assessment & Plan (2024 12:12 PM EDT): The patient will continue to follow with vascular surgery as recommended. Assessment & Plan (09/12/2024 6:55 PM EST): The patient will continue to follow with vascular surgery as recommended. Hyperlipidemia 10/28/2020 Assessment & Plan (2024 12:12 PM EDT): The patient believes that she had a more recent lipid panel completed at [facility]; we will attempt to obtain these [...] Type Department Care Team Description 03/19/2025 Telephone [facility] Cardiology [facility] [address] [facility] [address] [place] [phone] Alex Alba MD 02/24/2025 8:45 AM EDT Consult Orthopedic Surgery - [place] [address] [facility] [address] [place] [phone] Misael Martin DPM Controlled type 2 diabetes with neuropathy (CMS/HCC V24, CMS/HCC V28) (Primary Dx); Amputation of fifth toe of right foot ([facility] V24); Peripheral vascular disease, unspecified ([facility] V24); Neuropathy; Arthritis of both feet; Onychomycosis 01/19/2025 Telephone [facility] Cardiology [facility] - [facility] [address] [place] [address] Clemencia Aviles NP 01/13/2025 Telephone [facility] - [address] [place] [address] Clemencia Aviles NP medication 2024 11:10 AM EDT Office Visit [facility] - [address] [facility] [address] [place] [address] Clemencia Aviles NP Coronary artery disease involving coronary bypass graft of [place] heart without angina pectoris (Primary Dx); Hx of CABG; Old myocardial infarction; Primary hypertension; Hyperlipidemia, unspecified hyperlipidemia type; Peripheral vascular disease ([facility] V24) from Last 3 Months Surgical History [...] site debridement BYPASS GRAFT 09/10/2013 Left PROCEDURE: NE AMPUTATION TOE METATARSOPHALANGEAL JOINT; COMMENT: 2nd toe CARDIAC CATHETERIZATION 07/02/2013 PROCEDURE: HISTORICAL CARDIAC CATH OTHER SURGICAL HISTORY 02/18/2013 PROCEDURE: NE CORONARY ENDARTERCOMY OPEN ANY METHOD OTHER SURGICAL HISTORY 02/18/2013 PROCEDURE: NE BYPASS W/VEIN FEMORAL-FEMORAL OTHER SURGICAL HISTORY 07/31/2012 PROCEDURE: HISTORY OTHER; COMMENT: Right carotid endarterectomy with patch angioplasty reconstruction CARDIAC CATHETERIZATION 05/21/2012 PROCEDURE: HISTORICAL CARDIAC CATH CHOLECYSTECTOMY PROCEDURE: HISTORICAL CHOLECYSTECTOMY Medical History Medical History Date Comments Fall 03/01/2022 DX:Fall Hematemesis DX:Hematemesis Left orbit fracture ([facility], [facility] V[facility]) DX:Left orbit fracture ([facility]) Upper GI bleed DX:Upper GI blee d Hemorrhagic shock ([facility] [place] 24, [facility] V28) DX:Hemorrhagic shock ([facility]) Acute kidney injury superimp osed on CKD ([facility] [place]) DX:Acute kidney injury super imposed on CKD ([facility]) Hyponatremia DX:Hyponatremia Delirium DX:Delirium UTI (urinary tract infection) DX :UTI (urinary tract infection) Anemia DX:Anemia Claudication ([facility] [place]) DX:Cl audication ([facility]) COPD (chronic obstructive pu lmonary disease) ([facility] [place], [facility] V28) DX:COPD (chronic o bstructive pulmonary disease) ([facility]) 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 ([facility] V 24, [facility] V28) DX: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 ([facility]) GERD (gastroesophageal reflu x disease) DX:GERD (gastroesophageal re flux disease) Hard of hearing DX:Hard of heari ng Neck strain DX:Neck strain Obesity DX:Obesity PONV (postoperative nausea a nd vomiting) DX:PONV (postoperative nause a and vomiting) Toe ulcer ([facility], [facility] V28) DX:Toe ulcer ([facility]) Family History Medical History Relation Name Comments [...] AM EDT Office Visit Orthopedic Surgery - [place] [address] [id number] Misael Martin DPM [address] [address] 07/13/2025 2:00 PM EST Office Visit [facility] [address] [phone] Alex Alba MD [address] [address] Health Maintenance Due Date Last Done Comments [...] age to complete this topic Insurance MEDICARE [facility] [address] [place] [address] Care Teams Hose Maker Relationship Specialty Start Date End Date Jimmy Awan MD [address] [place] PCP - General 05/21/12
--- OUTSIDE RECORDS SUMMARY | 2025-03-30 11:37 | XMS_ITS | Clinical Summary ---
Author Organization [facility], Address [address] [address] [place] [address] Phone Care Team Providers Care Mail Processor Name Role Phone Jimmy Awan MD Primary Care Provider [phone] Allergies Active Allergy Reactions Criticality Noted Date [...] age to complete this topic Insurance Medicare [facility] Care Teams Mail Processor Relationship Specialty Start Date End Date Jimmy Awan MD [address] [place] [address] PCP - General Internal Medicine 07/28/21
--- OUTSIDE RECORDS SUMMARY | 2025-03-30 11:37 | XMS_ITS | Clinical Summary ---
Author Organization [facility] Address [address] [place] [phone] Phone Care Team Providers Care Swimming Pool Plasterer Helper Name Role Phone Jimmy Awan MD Primary Care Provider [phone] Allergies Active Allergy Reactions Criticality Noted Date [...] MEDICARE SUPPLEMENT MEDICARE PART A & B [facility] MEDICARE SUPPLEMENT MEDICARE PART A & B Member Subscriber Plan / Payer ( fective 2012-) Name:Jermain Gonzales Member ID:[id number] Relation to Subscriber:Self Name:Jermain Gonzales Subscriber ID:[id number] Payer ID:[id number] Group ID:Not on file Type:Medicare Address: [address] [place] [id number] [facility] MEDICARE SUPPLEMENT MEDICARE PART A & B [facility] MEDICARE SUPPLEMENT MEDICARE PART A & B MEDICARE SUPPLEMENT MEDICARE PART A & B Member Subscriber Plan / Payer ( fective 2012-Present) Name:Jermain Gonzales Member ID:[id number] Relation to Subscriber:Self Name:Jermain Gonzales Subscriber ID:[id number] Payer ID:[id number] Group ID:Not on file Type:Medicare Address: [facility] MEDICARE SUPPLEMENT MEDICARE PART A & B [facility] MEDICARE SUPPLEMENT MEDICARE PART A & B [facility] MEDICARE SUPPLEMENT MEDICARE PART A & B MEDICARE SUPPLEMENT Care Teams Swimming Pool Plasterer Helper Relationship Specialty Start Date End Date Jimmy Awan MD [address] [place] [address] [place] [address] PCP - General Internal Medicine 07/10/21 Additional Source Comments The information contained in this document represents components of the legal health record. It is not the complete legal health record.[facility]
== END 2025-03-30 12:03 | disposition home or self-care (01) ==
LOC: HO.HMCH 10:54
PROVIDERS: PCP Internal Medicine; Visit Provider Internal Medicine
DX: I12.9 Hypertensive chronic kidney disease with stage 1 through stage 4 chronic kidney disease, or unspecified chronic kidney disease (principal); E11.42 Type 2 diabetes mellitus with diabetic polyneuropathy; C01 Malignant neoplasm of base of tongue; N18.32 Chronic kidney disease, stage 3b; R56.9 Unspecified convulsions; I25.10 Atherosclerotic heart disease of native coronary artery without angina pectoris; I65.22 Occlusion and stenosis of left carotid artery; I73.9 Peripheral vascular disease, unspecified; E78.00 Pure hypercholesterolemia, unspecified; D64.9 Anemia, unspecified; J45.40 Moderate persistent asthma, uncomplicated; J30.9 Allergic rhinitis, unspecified

== ENCOUNTER → 2025-03-30 10:54 | Outpatient (BNVA) | payer MEDICARE, OTHER, SELFPAY | PROVIDERS: PCP Internal Medicine; Visit Provider Internal Medicine | DX: C01 Malignant neoplasm of base of tongue (principal); I25.10 Atherosclerotic heart disease of native coronary artery without angina pectoris; I65.22 Occlusion and stenosis of left carotid artery; I73.9 Peripheral vascular disease, unspecified; E78.00 Pure hypercholesterolemia, unspecified; E11.42 Type 2 diabetes mellitus with diabetic polyneuropathy; I12.9 Hypertensive chronic kidney disease with stage 1 through stage 4 chronic kidney disease, or unspecified chronic kidney disease; E11.22 Type 2 diabetes mellitus with diabetic chronic kidney disease; N18.32 Chronic kidney disease, stage 3b; D64.9 Anemia, unspecified; J45.40 Moderate persistent asthma, uncomplicated; J30.9 Allergic rhinitis, unspecified; E55.9 Vitamin D deficiency, unspecified; R56.9 Unspecified convulsions; R63.4 Abnormal weight loss | CPT/HCPCS: 96127; 99212 ==

== ENCOUNTER 2025-04-15 10:40 | Outpatient (AMB) | payer MEDICARE, OTHER, SELFPAY ==
--- OUTSIDE RECORDS SUMMARY | 2025-04-09 23:59 | XMS_ITS | Continuity of Care Document ---
Author Organization [facility] Address [address] [place] [id number]- Care Team Providers Care Public Information Coordinator Name Role Phone Jimmy Awan MD Primary Care Physician Encounter [place] Date(s): 03/10/25 - 04/09/25 [facility] [address] [place] [address] Attending Physician: Admtr, Ar8 Admitting Physician: Admtr, Ar8 Referring Physician: Admtr, Ar8 Encounter Type: Triage Allergies, Adverse Reactions, Alerts Substance Criticality Severity Reaction Reaction Severity Status doxycycline 1 seizure, viole nt ill,TIA Active Other Environmental Allergy Roses: Sneezing, runny nose Active hydrocortisone rash Activ e predniSONE rash Active penicillins nausea, vomitin g, rash Active Keppra TIA Active Dust runny nose, sneezing Active Grass sneezing, runny nose Active Milk Products Rash Active Pollen Sneezing, runny nose Active Mold nasal cogestions/asthma flare up Active 1severe vomiting Immunizations Given and Recorded Vaccine Date Status Refusal Reason influenza virus vaccine, inactivated 07/25/21 Give n Medications 360mL Diabetisource AC + 100mL free water each 4 times daily 360mL Diabetisource AC + 100mL free water each 4 times daily, See Instructions, # 173 each, [id number], Tot. Refills 11, Maintenance, Begin 360mL Diabetisource AC + 100mL free water each 4 times daily via G-tube by gravity feeding bag method. Pls provide all necessary G-tube supplies including pole. Dx: SCC base of tongue, dysphagia, mouth sores, T2DM, milk allergy Ht: 159.7cm Wt: 63.1kg, 03/10/25 9:06:00 AM EDT, Supply Start Date: 03/10/25 Status: Ordered Quantity: 173.0 Unit: each Repeat number: 12 acetaminophen 325 mg oral tablet 975 mg, By Mouth, Every 6 hours, PRN, Refills 0, Maintenance, Pain , Severe, 06/16/21 8:16:00 AM EDT, Partial fill upon patient request if the prescription is for a schedule II opioid drug. Start Date: 06/16/21 Status: Ordered Repeat number: 1 acetaminophen-oxyCODONE 325 mg-5 mg oral tablet Refills 0, Tot. Refills 0, Maintenance, 03/10/25 8:23:00 AM EDT, Partial fill upon patient request if the prescription is for a schedule II opioid drug. Start Date: 03/10/25 Status: Ordered Repeat number: 1 albuterol 0.083% inhalation solution 3 mL = 2.5 mg, Inhalation, 4 times a day, PRN Wheezing/Shortness of Breath, 0 Refills, Maintenance,09/17/12 2:47:58 PM EST Start Date: 09/17/12 Status: Ordered Repeat number: 1 atorvastatin 80 mg oral tablet 1 tablet = 80 mg, By Mouth, Daily at bedtime, # 30 tablet, 0 Refills, Maintenance, Tablet, Route toPharmacy Electronically, [id number], [facility] Start Date: 02/12/17 Stop Date: 03/14/17 Status: Ordered Quantity: 30.0 Unit: tablet Repeat number: 1 Carafate 1 gm/10 ml oral suspension 10 mL = 1 Gm, By Mouth, 3 times a day before meals and bedtime, # 1,200 mL, 0 Refills, Maintenance,04/08/25 2:42:00 PM EDT, [facility], Partial fill upon patient request if the prescription is for a schedule II opioid drug., 159.7, cm, 04/08/25 13:50:00 EDT, Height, 62.5, kg, 04/08/25 13:50:00 EDT, Dry Weight Start Date: 04/08/25 Status: Ordered Quantity: 1200.0 Unit: mL Repeat number: 1 Claritin 10 mg oral tablet 10 mg, 1, tablet, By Mouth, Daily in AM, Refills 0, Maintenance, 12/02/21 6:53:00 PM EDT, Partial fill upon patient request if the prescription is for a schedule II opioid drug. Start Date: 12/02/21 Status: Ordered Repeat number: 1 famotidine 40 mg/5 ml oral powder for reconstitution 5 mL = 40 mg, By Mouth, Daily, via G tube twice daily, # 150 mL, 0 Refills, Maintenance, 03/25/25 4:41:00 PM EDT, REC Powder, [facility], Partial fill upon patient request if the prescription is for a schedule II opioid drug., 159.7, cm, 03/25/25 13:58:00 EDT, Height, 60.7, kg, 03/25/25 13:58:00 EDT, Dry Weight Start Date: 03/25/25 Status: Ordered Quantity: 150.0 Unit: mL Repeat number: 1 Farxiga 10 mg oral tablet 1 tablet = 10 mg, By Mouth, Daily, # 30 tablet, 0 Refills, Maintenance, 01/11/24 8:58:00 AM EDT, Tablet, Partial fill upon patient request if the prescription is for a schedule II opioid drug. Start Date: 01/11/24 Status: Ordered Quantity: 30.0 Unit: tablet Repeat number: 1 First-Pantoprazole 4 mg/mL oral suspension 10 mL = 40 mg, By Mouth, Daily, # 300 mL, 0 Refills, Maintenance, 04/08/25 11:13:00 AM EDT, [id number], Partial fill upon patient request if the prescription is for a schedule II opioid drug., 159.7, cm, 04/01/25 13:58:00 EDT, Height, 61.4, kg, 04/01/25 13:58:00 EDT, Dry Weight Start Date: 04/08/25 Status: Ordered Quantity: 300.0 Unit: mL Repeat number: 1 gabapentin 250 mg/5 mL oral solution 5 mL = 250 mg, By Mouth, Daily, take at night, # 150 mL, 0 Refills, Maintenance, 03/25/25 4:41:00 PM EDT, [facility], Partial fill upon patient request if the prescription is for a schedule II opioid drug., 159.7, cm, 03/25/25 13:58:00 EDT, Height, 60.7, kg, 03/25/25 13:58:00 EDT, Dry Weight Start Date: 03/25/25 Status: Ordered Quantity: 150.0 Unit: mL Repeat number: 1 glyBURIDE 2.5 mg oral tablet 2.5 mg, 1, tablet, By Mouth, Daily in AM, Refills 0, Maintenance, 12/02/21 6:45:00 PM EDT, Partial fill upon patient request if the prescription is for a schedule II opioid drug. Start Date: 12/02/21 Status: Ordered Repeat number: 1 isosorbide mononitrate 30 mg oral tablet, extended release 0 Refills, Maintenance, 03/10/25 8:23:00 AM EDT, Partial fill upon patient request if the prescription is for a schedule II opioid drug. Start Date: 03/10/25 Status: Ordered Repeat number: 1 latanoprost 0.005% ophthalmic solution 1 drops, Eyes, Both, Daily at bedtime, # 3 mL, 0 Refills, Maintenance, 02/18/13 6:14:00 AM EDT, OphthSolution Start Date: 02/18/13 Status: Ordered Quantity: 3.0 Unit: mL Repeat number: 1 Lidocaine Viscous 2% solution See Instructions, PRN for mouth sore pain, 1 tsp PO QID PRN, # 150 mL, 3 Refills, Acute 05/21/25 3:14:00 PM EDT, 03/20/25 3:12:00 PM EDT, Solution, [facility], Partial fill upon patientrequest if the prescription is for a schedule II opioid drug., 1 tsp PO QID PRN,PRN:for mouth sore pain, 159.7, cm, 03/18/25 13:03:00 EDT, Height, 61.4, kg, 03/18/25 13:03:00 EDT, Dry Weight Start Date: 03/20/25 Stop Date: 05/21/25 Status: Ordered Quantity: 150.0 Unit: mL Repeat number: 4 Metoprolol Succinate ER 50 mg oral tablet, extended release 1 tablet = 50 mg, By Mouth, Daily in AM, # 30 tablet, 0 Refills, Maintenance, 02/09/17 7:09:26 PM EDT, ER Tablet Start Date: 02/09/17 Status: Ordered Quantity: 30.0 Unit: tablet Repeat number: 1 nitroglycerin 0.3 mg sublingual tablet 1 tablet = 0.3 mg, Sublingual, Every 5 minutes, PRN Chest Pain, 0 Refills, Maintenance, 12/02/21 6:50:00 PM EDT, Partial fill upon patient request if the prescription is for a schedule II opioid drug. Start Date: 12/02/21 Status: Ordered Repeat number: 1 nystatin 929853 u/ml oral suspension 4 mL = 400,000 units, By Mouth, 4 times a day, # 120 mL, 0 Refills, Maintenance, 04/08/25 2:53:00 PMEDT, Suspension, [facility], Partial fill upon patient request if the prescriptionis for a schedule II opioid drug., 159.7, cm, 04/08/25 13:50:00 EDT, Height, 62.5, kg, 04/08/25 13:50:00 EDT, Dry Weight Start Date: 04/08/25 Status: Ordered Quantity: 120.0 Unit: mL Repeat number: 1 ondansetron 4 mg oral tablet 1 tablet = 4 mg, By Mouth, Every 8 hours, 0 Refills, Maintenance, 03/06/25 2:37:00 PM EDT, Partial fill upon patient request if the prescription is for a schedule II opioid drug. Start Date: 03/06/25 Status: Ordered Repeat number: 1 ondansetron 4 mg oral tablet, disintegrating 0 Refills, Maintenance, 03/10/25 8:23:00 AM EDT, Partial fill upon patient request if the prescription is for a schedule II opioid drug. Start Date: 03/10/25 Status: Ordered Repeat number: 1 pantoprazole 40 mg oral delayed release tablet 1 tablet = 40 mg, By Mouth, 2 times a day, Take 1 tablet twice a day for 3 months. Then take 1 tablet daily in the morning for life, # 60 tablet, 0 Refills, Maintenance, 12/07/21 10:59:00 AM EDT, CR Tablet, 155, cm, 12/07/21 6:38:00 EDT, Height, 74.7, kg, 12/02/21 21:18:00 EDT, Dry Weight Start Date: 12/07/21 Status: Ordered Quantity: 60.0 Unit: tablet Repeat number: 1 ProAir HFA 90 mcg/inh inhalation aerosol 2 puffs, Inhalation, Every 6 hours, PRN Wheezing/Shortness of Breath, 0 Refills, Maintenance, 12/02/21 6:44:00 PM EDT, Partial fill upon patient request if the prescription is for a schedule II opioiddrug. Start Date: 12/02/21 Status: Ordered Repeat number: 1 senna 8.8 mg/5 mL oral syrup 10 mL = 17.6 mg, By Mouth, 2 times a day, PRN for constipation, # 240 mL, 1 Refills, Maintenance, 03/18/25 2:35:00 PM EDT, Syrup, [facility], Partial fill upon patient request if the prescription is for a schedule II opioid drug., 159.7, cm, 03/18/25 13:03:00 EDT, Height, 61.4, kg, 0 03/18/25 13:03:00 EDT, Dry Weight Start Date: 03/18/25 Status: Ordered Quantity: 240.0 Unit: mL Repeat number: 2 sucralfate 1 gm oral tablet 1 Gm, 1, tablet, By Mouth, Daily at bedtime, Refills 0, Maintenance, 02/27/22 8:57:00 AM EDT, Partial fill upon patient request if the prescription is for a schedule II opioid drug. Start Date: 02/27/22 Status: Ordered Repeat number: 1 triamcinolone 0.1% topical lotion 1 application, Topically, 2 times a day, PRN Rash, 0 Refills, Maintenance, 12/02/21 6:53:00 PM EDT, Partial fill upon patient request if the prescription is for a schedule II opioid drug. Start Date: 12/02/21 Status: Ordered Repeat number: 1 Vitamin B12 = 6,000 mcg, By Mouth, Daily in AM, chewables, 0 Refills, Maintenance, 12/23/21 1:36:00 PM EDT, Partial fill upon patient request if the prescription is for a schedule II opioid drug. Start Date: 12/23/21 Status: Ordered Repeat number: 1 Problem List Condition Confirmation Course Effective Dates Status H ealth Status Informant Anemia Confirmed Active AP (angina pectoris) Confirmed 07/24/12 Active Carotid stenosis Confirmed Active COPD (chronic obstructive pulmonary disease) Confirmed Active Claudication Confirmed Active CAD (coronary artery disease) w/DEEDEE of ostial LCX coronary artery Confirmed 05/21/12 Active 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 Confirmed Active Esophageal reflux (GERD) Confirmed 07/24/12 Active Former smoker, stopped smoking in distant past 1 Confirmed 07/24/12 Active Hard of hearing Confirmed Active Hyperlipidemia NOS Confirmed 07/24/12 Active Hypertension Confirmed 07/24/12 Active Obesity (BMI 32.80 as of 01/24/2017) Confirmed Active PAD (peripheral artery disease) Confirmed Active PONV (postoperative nausea and vomiting) Confirmed Active Suspension of bladder 2 Confirmed 07/24/12 Active Toe ulcer Confirmed Active 1long time, quit 22years ago and 2000 at [facility] Social History Social History Type Response Smoking Status Former smoker; Other : QUIT 26 YEARS AGO; entered on: 04/03/16 Sex Sex Representation Female (finding) Cardiology * Event Display: Cardiology Office Note, Non- Authored Date: * Event Display: Cardiology Office Note, Non- Authored Date: Patient Care team information Care Team Personnel Name: Shakira Spence CNM Position: Reference Physician Member Role: Primary Care Nurse Address: [address] [place] [address]- [place] Telecom: Name: Jimmy Awan MD Position: Reference Physician Member Role: PCP Address: [address] [place] [address] [address] [place], [place] [address] Telecom: Name: Everett Owens RN Position: [facility] RN Member Role: Primary Care Nurse Name: Veronica Aponte RN Position: [facility] SN RN Member Role: Primary Care Nurse Name: Natty Gray RN Position: [facility] Seam Operator Member Role: Primary Care Nurse Name: Eve Nettles RN Position: [facility] RN Member Role: Primary Care Nurse Name: Conchis Garcia NP Position: [facility] Associate Professional Member Role: Primary Care Nurse Address: [address] [place] [address] [place] [address]- Telecom: Name: Itzel Huddleston RN Position: [facility] RN Member Role: Primary Care Nurse Name: Hari Garcia MAon Position: [facility] AMB MA Member Role: Lifetime Consulting Physician Name: Will Ordoñez DO Position: [facility] Renal MD Member Role: Lifetime Consulting Physician Address: [address] [place], [place] [address] [place] [place] [address] Telecom: Name: Francesca Roa RN Position: [facility] RN Member Role: Primary Care Nurse Name: Vanda Sarabia RN Position: [facility] RN Member Role: Primary Care Nurse Name: Kranthi Jean RN Position: [facility] RN Member Role: Primary Care Nurse Name: Veronica Hood RN Position: [facility] RN Member Role: Primary Care Nurse Name: Jenifer Patel RN Position: [facility] OB RN Member Role: Primary Care Nurse Name: Patricia Higgins RN Position: [facility] RN Member Role: Primary Care Nurse Name: Funmilayo Gold RN Position: [facility] RN Member Role: Primary Care Nurse Name: Michelle Tatum RN Position: [facility] RN Member Role: Primary Care Nurse Name: Carol Duke RN Position: [facility] RN Member Role: Primary Care Nurse Name: Marycruz Coto RN Position: [facility] Seam Operator Member Role: Primary Care Nurse Name: Jahaira Natarajan RN Position: [facility] RN Member Role: Primary Care Nurse Care Team Related Persons Name: GLORIAABELARDO Name: NAVARAF PATRICK Insurance Providers Guarantor name: DOMINIC ANDINOS Health Plan Information #: 1 Payer: MEDICARE B Payer Identifier: Member Number: [id number] Group Number: Subscriber Identifier: [id number] Relationship to Subscriber: self Coverage Type: NA Coverage Verification Date: NA Telecom: NA Address: Health Plan Information #: 2 Payer: [facility] Payer Identifier: Member Number: [id number] Group Number: [id number] Subscriber Identifier: [id number] Relationship to Subscriber: self Coverage Type: Medicare Other Coverage Verification Date: NA Telecom: Address:
--- NOTE | 2025-04-15 10:55 | A.OFFVIS_ITS ---
Vital Signs 04/15/25 11:07 Height 5 ft 2 in Weight 136 lb 10.986 oz BMI 25.0 BP 100/40 L Blood Pressure Location Rt brachial Position Sitting Pulse 72 Pulse Source Pulse Oximeter Pulse Oximetry (%) 95 Oxygen Delivery Method Room Air Intake Visit Reasons: 30m 6mos FUV Intake Note: ESTABLISHED PATIENT for GERD, anemia, and squamous cell carcinoma of the tongue. Chief Complaint; C.O. ongoing cancer tx and related sx. Pt family member states that they are switching most if not all meds to liquid forms. Blender/Braze Applicator Required: No Allergies evolocumab (From Repatha SureClick) Allergy (Intermediate, Verified 04/15/25 10:56) Hives doxycycline Allergy (Mild, Verified 04/15/25 10:56) Vomiting levetiracetam (From Keppra) Allergy (Mild, Verified 04/15/25 10:56) Vomiting amoxicillin Allergy (Unknown, Verified 04/15/25 10:56) rash Penicillins Allergy (Unknown, Verified 04/15/25 10:56) rash prednisone Allergy (Unknown, Verified 04/15/25 10:56) rash ceftriaxone (From Rocephin) Allergy (Verified 04/15/25 10:56) Rash milk Allergy (Verified 04/15/25 10:56) Unknown omeprazole Adverse Reaction (Unknown, Verified 04/15/25 10:56) worsening heartburn ranitidine Adverse Reaction (Unknown, Verified 04/15/25 10:56) worsening heartburn, abdominal pain (ONLY to generic) HPI HPI 30m 6mos FUV: Details: LAST VISIT: Anemia GERD (gastroesophageal reflux disease) Postprandial diarrhea Swollen lymph nodes Dysphagia Plan Will repeat CBC to make sure that she is not anemic. Referral to Pulmonary 1 nodule found on left upper lobe. Patient will be following up with ENT in [place]. Appointment was made for her for Sunday at 14:30. Suspicion of fast growing tumor or carcinoma. Patient was encouraged that if she will have trouble swallowing or even breathing she must go to ER. Patient was encouraged to drink liquids like protein shakes. Patient was encouraged to be careful when she swallows medication. This mass is fast growing non visible on neck x-ray November 11 patient will follow-up in the office in 2 months, sooner on as needed basis. She is agreeable to this plan and verbalizes understanding of instructions. She was given the opportunity to ask questions and all questions answered. ? Thank you for allowing me to participate in her care Orders Complete Blood Count no Diff 01/09/25 K21.9 Referrals Pulmonology Referral J43.9, R91.1 TODAY'S VISIT Patient is here today for follow-up. 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 Unable to have chemotherapy due to multiple comorbidities. Patient is doing radiation treatment for about 7 weeks total. So far 5 weeks radiation therapy. Patient will be re-evaluated by ENT and Oncology after treatment if not successful will try amino acid therapy. Patient so far is doing well. Mild anemia no significant drop in H&H. Patient is feeling tired and weak. Taking PPI and H2 abel in the liquid form and states that she is. She is going for speech therapy and is to do home exercise to help with swallowing. Safety precautions and measures to avoid choking. Patient is using supplements to help with nutritional intake. Patient has G-tube that has been placed and is patent per patient's daughter. Overall patient is doing fairly well. Patient denies dyspepsia. Acid reflux is controlled at this time. Had constipation for some time was given script for senna, however patient has not used it. Constipation resolved. Occasional loose stools depending on what she eats. Kidney functions improved [facility] Medical History (Updated 04/15/25 @ 11:43 by VERENA Harper-RASHMI) Dysphagia Squamous cell carcinoma of base of tongue Head and neck cancer GABRIELA (obstructive sleep apnea) Pulmonary nodule Chronic kidney disease, stage 4 (severe) Chronic kidney disease, stage III (moderate) Atrophic vaginitis Orbital fracture Upper GI bleeding Hearing impairment Seizure Recurrent urinary tract infection Overweight (BMI 25.0-29.9) Vitamin D deficiency Allergic rhinitis Meralgia paresthetica of right side Anemia GERD without esophagitis Asthma Hyperkalemia Diabetic polyneuropathy associated with type 2 diabetes mellitus Peripheral vascular disease Pure hypercholesterolemia Benign essential hypertension Carotid atherosclerosis Coronary artery disease (~06/09/21) Type 2 diabetes mellitus with diabetic polyneuropathy Surgical History Hx of colonoscopy History of endoscopy S/P CABG x 4 (~06/09/21) History of cardiac catheterization (~12/2023) History of left-sided carotid endarterectomy S/P LASIK surgery History of right-sided carotid endarterectomy History of laparoscopic cholecystectomy Family History Father CVD (cardiovascular disease) Mother Stroke Brother CVD (cardiovascular disease) Esophageal cancer Social History Household Members: Children Housing: House Are you a primary critical care unit manager to a significant other at home: No Do you presently have visiting nurse or other home services: No Alcohol intake: never Comment: cardiac Patient Tobacco Use Status: Former Tobacco user Tobacco use type: Cigarette e-Cigarette/Vaping Use: Never Used Second Hand Smoke Exposure: No Advance Directives Date on File: 01/11/22 service: No Current occupational status: 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 Cognitive needs: No Hearing needs: No Vision needs: No Review of Systems Const Denies weight gain and Reports weight loss ENT Reports no additional complaints, Reports dysphagia and Denies odynophagia Card Reports no additional complaints Resp Reports no additional complaints GI Denies abdominal pain, Denies belching, Denies melena, Denies bloating, Denies change in bowel habits, Reports dysphagia, Denies excessive flatus, Denies dyspepsia, Denies heartburn, Denies diarrhea, Denies loose stools, Denies nausea, Denies odynophagia and Denies vomiting Reports no additional complaints Musc Reports no additional complaints Neuro Reports no additional complaints Psych Reports no additional complaints Endo Reports no additional complaints Physical Exam Vital Signs: Last Vital Signs Pulse 72 04/15/25 11:07 BP 100/40 L 04/15/25 11:07 Pulse Ox 95 04/15/25 11:07 Oxygen Delivery Method Room Air 04/15/25 11:07 BMI result Body Mass Index 25.0 Const General: healthy appearing and no acute distress Nutritional Appearance: obese Orientation/consciousness: patient oriented x3 Resp Effort & Inspection: normal respiratory effort, able to speak in complete sentences, no tracheal deviation and symmetric chest movement Auscultation: clear to auscultation bilaterally Cardio Rate: regular rate GI Other: G-tube in place Inspection: Yes normal to inspection, No distended and Yes obesity Palpation (GI): Soft to palpation, not firm, nontender and No hepatosplenomegaly present Auscultation: normal bowel sounds General: Yes no CVA tenderness Back/Spine/Pelvis Back: no CVA tenderness Skin General skin exam: elasticity normal, turgor normal and dry skin Neuro General: patient oriented x3 Psych Appearance: grossly normal Mental Status: mental status grossly normal Assessment & Plan Assessment & Plan (1) GERD without esophagitis: Code(s): K21.9 - Gastro-esophageal reflux disease without esophagitis Category: Medical (2) Dysphagia: Code(s): R13.10 - Dysphagia, unspecified Category: Medical Qualifiers: Dysphagia type: oropharyngeal phase Qualified Code(s): R13.12 - Dysphagia, oropharyngeal phase (3) Squamous cell carcinoma of base of tongue: Code(s): C01 - Malignant neoplasm of base of tongue Category: Medical Plan Patient will continue PPI and H2 abel. Encouraged patient to increase nutritional shakes. May take senna as needed. Patient will continue following up with ENT, speech therapy and oncology. Continue exercises recommended by speech therapist at home to improve swallowing. Follow-up in 3 months. Patient was encouraged to call us if she will have any GI concerning symptoms. She is agreeable to this plan and verbalizes understanding of instructions. She was given the opportunity to ask questions and all questions answered. Thank you for allowing me to participate in her care Coding Level of Care Code Est Pt Level 4 (81705) Diagnoses GERD without esophagitis K21.9 Oropharyngeal dysphagia R13.12 Dysphagia type: oropharyngeal phase Squamous cell carcinoma of base of tongue C01 Time Spent (min) 40 Comment 25 minutes spent with patient and additional 15 minutes spent reviewing her records
[2025-04-15 11:07] VITALS: BP 100/40; PULSE 72; O2SAT 95; BMI 25.0
--- OUTSIDE RECORDS SUMMARY | 2025-04-15 11:35 | XMS_ITS | Clinical Summary ---
Author Organization [facility], Address [address] [facility] [address] [place] [address] Phone Care Team Providers Care Locomotive Crane Engineer Name Role Phone Jimmy Awan MD Primary Care Provider [phone] Allergies Active Allergy Reactions Criticality Noted Date [...] age to complete this topic Insurance Medicare [facility] Care Teams Locomotive Crane Engineer Relationship Specialty Start Date End Date Jimmy Awan MD [address] [place] [address] PCP - General Internal Medicine 07/28/21
--- OUTSIDE RECORDS SUMMARY | 2025-04-15 11:35 | XMS_ITS | Clinical Summary ---
Author Organization [facility] Address [address] [facility] [address] [place] [address] Phone Care Team Providers Care Postal Superintendent Name Role Phone Jimmy Awan MD Primary Care Provider [phone] Allergies Active Allergy Reactions Criticality Noted Date [...] MEDICARE SUPPLEMENT MEDICARE PART A & B [facility] MEDICARE SUPPLEMENT MEDICARE PART A & B Member Subscriber Plan / Payer ( fective 2012-) Name:Jermain Gonzales Member ID:[id number] Relation to Subscriber:Self Name:Jermain Gonzales Subscriber ID:[id number] Payer ID:[id number] Group ID:Not on file Type:Medicare Address: [employer] [address] [place] [id number] [facility] MEDICARE SUPPLEMENT MEDICARE PART A & B [facility] MEDICARE SUPPLEMENT MEDICARE PART A & B MEDICARE SUPPLEMENT MEDICARE PART A & B Member Subscriber Plan / Payer ( fective 2012-Present) Name:Jermain Gonzales Member ID:[id number] Relation to Subscriber:Self Name:Jermain Gonzales Subscriber ID:[id number] Payer ID:[id number] Group ID:Not on file Type:Medicare Address: [employer] [address] MEDICARE SUPPLEMENT MEDICARE PART A & B [facility] MEDICARE SUPPLEMENT MEDICARE PART A & B [facility] MEDICARE SUPPLEMENT MEDICARE PART A & B MEDICARE SUPPLEMENT Care Teams Postal Superintendent Relationship Specialty Start Date End Date Jimmy Awan MD [address] [place] [address] [place] [address] PCP - General Internal Medicine 07/10/21 Additional Source Comments The information contained in this document represents components of the legal health record. It is not the complete legal health record.[facility]
--- OUTSIDE RECORDS SUMMARY | 2025-04-15 11:35 | XMS_ITS | Clinical Summary ---
Author Organization [address] [place] [address] [place] [phone] Phone Care Team Providers Care Graduate Engineer Name Role Phone Jimmy Awan MD [...] 24 hr tabletIndication s:Coronary artery disease of craig artery of craig heart with stable angina pectoris (CMS/[facility] V24) TAKE 1 TABLET(30 MG) BY MOUTH [...] Problem Noted Date Diagnosed Date Angina pectoris ([facility] V24) 03/01/2022 Overview (07/15/2024): post CABG Diabetes 1.5, managed as type 2 ([facility] V24, CM S/[facility] V28) 08/01/2021 Seizure disorder ([facility] V24, [facility] V28) 07/20 Hx of CABG 06/22/2021 Assessment [...] PM EST): Type 2 diabetes mellitus ([facility] V24, [facility] V 28) 06/21/2021 Coronary artery disease invo lving coronary bypass graft of craig heart without angina pectoris 10/28/2020 Assessment & [...] She reports having recent labs completed at [facility] and we will attempt to obtain these for review. Assessment & Plan (09/12/2024 6:55 PM EST): Blood pressure is favorable on current medical therapy; continue metoprolol addition to newly added isosorbide. We will attempt to get more with her recent labs from her PCPs office for review. Peripheral vascular disease ([facility] V24) 2020 Assessment & Plan (2024 12:12 PM EDT): The patient will continue to follow with vascular surgery as recommended. Assessment & Plan (09/12/2024 6:55 PM EST): The patient will continue to follow with vascular surgery as recommended. Hyperlipidemia 10/28/2020 Assessment & Plan (2024 12:12 PM EDT): The patient believes that she had a more recent lipid panel completed at [facility]; we will attempt to obtain these for [...] Encounters Date Type Department Care Team Description 04/15/2025 Telephone [facility] Cardiology [facility] [address] [place] [address] Alex Alba MD 03/19/2025 Telephone [facility] [address] [facility] [address] [place] [phone] Alex Alba MD 02/24/2025 8:45 AM EDT Consult Orthopedic Surgery - [place] [address] [facility] 250 [place] [address] Misael Martin, CARL Controlled type 2 diabetes with neuropathy (CMS/HCC V24, CMS/HCC V28) (Primary Dx); Amputation of fifth toe of right foot (CMS/HCC V24); Peripheral vascular disease, unspecified (CMS/HCC V24); Neuropathy; Arthritis of both feet; Onychomycosis 01/19/2025 Telephone [facility] Cardiology [facility] [address] [facility] [address] [place] [phone] Clemencia Aviles NP 01/13/2025 Telephone [facility] [address] [facility] [address] [place] [address] Clemencia Aviles NP from Last 3 Months Surgical History Surgery [...] site debridement BYPASS GRAFT 09/10/2013 Left PROCEDURE: [place] AMPUTATION TOE METATARSOPHALANGEAL JOINT; COMMENT: 2nd toe CARDIAC CATHETERIZATION 07/02/2013 PROCEDURE: HISTORICAL CARDIAC CATH OTHER SURGICAL HISTORY 02/18/2013 PROCEDURE: NH CORONARY ENDARTERCOMY OPEN ANY METHOD OTHER SURGICAL HISTORY 02/18/2013 PROCEDURE: NH BYPASS W/VEIN FEMORAL-FEMORAL OTHER SURGICAL HISTORY 07/31/2012 PROCEDURE: HISTORY OTHER; COMMENT: Right carotid endarterectomy with patch angioplasty reconstruction CARDIAC CATHETERIZATION 05/21/2012 PROCEDURE: HISTORICAL CARDIAC CATH CHOLECYSTECTOMY PROCEDURE: HISTORICAL CHOLECYSTECTOMY Medical History Medical History Date Comments Fall 03/01/2022 DX:Fall Hematemesis DX:Hematemesis Left orbit fracture ([facility] V24, [facility] V28) DX:Left orbit fracture ([facility]) Upper GI bleed DX:Upper GI blee d Hemorrhagic shock ([facility] V 24, [facility] V28) DX:Hemorrhagic shock ([facility]) Acute kidney injury superimp osed on CKD ([facility] V24) DX:Acute kidney injury super imposed on CKD ([facility]) Hyponatremia DX:Hyponatremia Delirium DX:Delirium UTI (urinary tract infection) DX :UTI (urinary tract infection) Anemia DX:Anemia Claudication ([facility] V24) DX:Cl audication ([facility]) COPD (chronic obstructive pu lmonary disease) ([facility] V24, [facility] V28) DX:COPD (chronic o bstructive pulmonary disease) ([facility]) 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 ([facility] V 24, [facility] V28) DX: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 ([facility]) GERD (gastroesophageal reflu x disease) DX:GERD (gastroesophageal re flux disease) Hard of hearing DX:Hard of heari ng Neck strain DX:Neck strain Obesity DX:Obesity PONV (postoperative nausea a nd vomiting) DX:PONV (postoperative nause a and vomiting) Toe ulcer ([facility] V24, [facility] V28) DX:Toe ulcer ([facility]) Family History Medical History Relation Name Comments [...] AM EDT Office Visit Orthopedic Surgery - [place] [address] [facility] [address] [place] [phone] Misael Martin DPM [address] [place] [phone] 07/13/2025 2:00 PM EST Office Visit [facility] [address] [place] [phone] Alex Alba MD [address] [place] [address] [address] [place] [address] Health Maintenance Due Date Last Done Comments [...] Depression Screening 08/20/2024 Influenza Vaccine (#1) 2025 4, 07/11/2023, 07/25/2021, Additional history exists DTaP,Tdap,and Td [...] complete this topic Insurance MEDICARE [facility] Care Teams Graduate Engineer Relationship Specialty Start Date End Date Jimmy Awan MD [address] [facility] [address] [place] PCP - General 05/21/12
--- OUTSIDE RECORDS SUMMARY | 2025-04-15 11:35 | XMS_ITS | Encounter Summary ---
Author Organization [facility] Address [address] [facility] [address] [place] [address] Phone Care Team Providers Care Career Based Intervention Coordinator Name Role Phone Jimmy Awan MD Primary Care Provider [phone] Reason for Referral * Consultation (Elective) - Closed Specialty Diagnoses / Procedures Referred By Contac t Referred To Contact Cardiac Rehabilitation Diagnoses S/P CABG (coronary artery bypass graft) Cheryl Butts MD [address] [place] [address] Phone: tel: fax: [address] [address] Phone: tel: Referral ID Status Reason Start Date Expiration Date Visits Re quested Visits Authorized [id number] Closed 09/02/2021 09/02/2022 1 1 Encounter Details Date Type Department Care Team (Late st Contact Info) Description 09/02/2021 Transcribe Orders [facility] Department [address] [place] [address] Cheryl Butts MD [address] [place] [address] S/P CABG (coronary artery bypass graft) (Primary Dx) Social History Tobacco Use Types Packs/Day Years Used Date Smoking Tobacco: Never Assessed Comments Unknown Sex and Gender Information Value Date Recorded Sex Assigned at Not on file Legal Sex Female 10:10 PM EDT Gender Identity Not on file Sexual Orientation Not on file documented as of this encounter Plan of Treatment Scheduled Referrals Name Type Priority Associated Diagnoses Order Schedule Ambulatory referral to [facility] Cardiac Rehab Outpatient Referral Routine S/P CABG (coronary artery bypass graft) Ordered: 09/02/2021 documented as of this encounter Visit Diagnoses Diagnosis S/P CABG (coronary artery bypass graft)- Primary Postsurgical aortocoronary bypass status documented in this encounter Care Teams Career Based Intervention Coordinator Relationship Specialty Start Date End Date Jimmy Awan MD [address] [place] [address] [place] [address] PCP - General Internal Medicine 07/10/21 documented as of this encounter Additional Source Comments The information contained in this document represents components of the legal health record. It is not the complete legal health record.[facility]
--- OUTSIDE RECORDS SUMMARY | 2025-04-15 11:35 | XMS_ITS | Encounter Summary ---
Author Organization [facility] Address [address] [place] [address] Care Team Providers Care Residential Installer Name Role Phone Jimmy Awan MD Primary Care Provider Reason for Visit * Reason Onset Date Comments Medication Problem 04/15/2025 Encounter Details Date Type Department Care Team (Late st Contact Info) Description 04/15/2025 Telephone [facility] 101 300 [facility] 101 [place] [address] Alex Alba MD [address] [place] [address] [address] [place] [address] Social History Tobacco Use Types Packs/Day Years [...] on file documented as of this encounter Progress Notes * Chika Coto RN - 04/15/2025 9:03 AM EDT Spoke with daughter and she states patient up until today has been able to swallow her Toprol XL 50mg qd and her Imdur 30 mg qd. This a.m. patient asked daughter to crush meds and give thru NG Tube. Since meds are ER , daughter asking for alternative. If alternative can be ordered that can be crushed, please order thru [employer] [facility] [employer] [place], [place]. If needs to be liquid form, please order thru [facility]. Also reports most days able to swallow Farxiga. (Per daughter patient has a doctor appt 11am and radiation appt 2:30pm) * Suellen Irvin - 04/15/2025 8:30 AM EDT Patients daughter Clemencia states patient is having a hard time swallowing her Metoprolol ER. She is not able to crush the medication because it is extended release.Clemencia would like other options for patient. documented in this encounter Plan of Treatment Upcoming Encounters Date Type Department Care Team (Late st Contact Info) Description 05/28/2025 8:45 AM EDT Office Visit Orthopedic Surgery - [place] 250 175 [facility] 250 [place] [phone] Misael Martin, DPDewayne [address] [place] [phone] 07/13/2025 2:00 PM EST Office Visit [facility] [address] [address] Alex Alba MD [address] [place] [address] Dr Flood [address] [place] [phone] documented as of this encounter Visit Diagnoses Not on filedocumented in this encounter Care Teams Residential Installer Relationship Specialty Start Date End Date Jimmy Awan MD [address] [place] [address] Dr [address] [place], [place] PCP - General 05/21/12 documented as of this encounter
== END 2025-04-15 11:25 | disposition home or self-care (01) ==
LOC: HO.HGI 10:42
PROVIDERS: PCP Internal Medicine; Visit Provider Nurse Practitioner Family
DX: K21.9 Gastro-esophageal reflux disease without esophagitis (principal); R13.12 Dysphagia, oropharyngeal phase; C01 Malignant neoplasm of base of tongue
CPT/HCPCS: 99214

== ENCOUNTER → 2025-04-15 10:40 | Outpatient (BNVA) | payer MEDICARE, OTHER, SELFPAY | PROVIDERS: PCP Internal Medicine; Visit Provider Nurse Practitioner Family | DX: K21.9 Gastro-esophageal reflux disease without esophagitis (principal); R13.12 Dysphagia, oropharyngeal phase; C01 Malignant neoplasm of base of tongue | CPT/HCPCS: 99212 ==

== ENCOUNTER 2025-04-16 07:25 | Outpatient (REF) | payer MEDICARE, OTHER, SELFPAY ==
--- NOTE | ~2025-04-16 | CT_ITS ---
EXAMINATION: CT CHEST WITHOUT CONTRAST CLINICAL INFORMATION: Solitary pulmonary nodule. COMPARISON: None available. TECHNIQUE: Multidetector volumetric CT imaging of the chest was done. Axial MIP volume rendering provided. Sagittal and coronal reformatted images were obtained. This CT examination was performed using dose optimization techniques as appropriate, variously including the following: *Automated exposure control *Adjustment of mA and/or kV according to patient size (this includes techniques or standardized protocols for targeted exams where dose is matched to indication/reason for exam; i.e. extremities or head) *Use of iterative reconstruction technique. DLP: 130 mGy centimeter. FINDINGS: CENTRAL OFFICE ASSOCIATE: [No wires. Vascular clips right upper quadrant abdomen. Patient's large body habitus. There is a catheter overlapping the right upper abdomen.. LUNGS: Patient's breathing motion artifact. There is a 10 mm groundglass pulmonary nodule in the anterior segment right upper lung lobe. There is a patchy pulmonary groundglass in the superior segment left lower lung lobe and lingula. 10 mm patchy pulmonary groundglass in the right middle lung lobe. 2 mm calcified pulmonary nodule in the periphery of the right middle lung lobe. Linear attenuation abnormalities in the lung apices. No hyperinflation. No bronchiectasis. No honeycombing. MEDIASTINUM: Calcified plaques in the main branches of the thoracic aorta. The largest calcified plaques in the right brachiocephalic trunk and left subclavian artery. Calcified plaques throughout the thoracic aorta wall and the coronary arteries. No aneurysm, thoracic aorta. No gross mediastinal lymphadenopathy. The heart is not enlarged. No pericardial effusion. No pneumomediastinum. No hemomediastinum. No hemopericardium. The thyroid gland is not enlarged. Small hiatal hernia. CORONARY ARTERY CALCIFICATION: Calcified plaques. PLEURA: No pleural effusion. No pneumothorax. No hemothorax. No calcified pleural plaques. AXILLA: No lymphadenopathy. UPPER ABDOMEN: Small hiatal hernia. Calcified plaques in the abdominal aorta and splenic artery. Subtle nodular surface of the liver. OSSEOUS STRUCTURES: Multilevel cervical thoracic and upper lumbar spondylosis. Sternal wires metallic plates in the lower sternum. No acute rib fracture. Soft tissue fullness in the right breast with punctate calcifications. CT/CT chest wo IV con IMPRESSION: Concerning multifocal pneumonia versus inflammatory process. Neoplasm cannot be excluded. Coronary artery disease and atherosclerosis disease. Soft tissue fullness, right breast. Correlated with recent mammogram. Fleischner guidelines were followed. Electronically signed by: Alin Dunn MD 04/16/2025 08:19 AM EDT
--- OUTSIDE RECORDS SUMMARY | 2025-04-16 07:29 | XMS_ITS | Clinical Summary ---
Author Organization [address] [place] [address] [place] [phone] Phone Care Team Providers Care Children'S Institution Attendant Name Role Phone Jimmy Awan MD Primary Care Provider [phone] Allergies Active Allergy Reactions Criticality Noted Date [...] by mouth 1 (one) time each day. 08/24/19 23 Active pantoprazole (PROTONIX) 40 mg EC tablet [...] mouth 1 (one) time each day. Active cholecalcifero l (VITAMIN D-3) 25 mcg (1,000 unit) tablet [...] TABLET BY MOUTH DAILY 30 tablet 6 10/17/19 25 Active nitroglycerin (NITROSTAT) 0.[address] 1 tablet (0.3 mg total) under the tongue every 5 (five) minutes if needed for chest pain. 25 tablet 2 12/30/19 25 026 Active aspirin 81 mg EC tablet Take 1 tablet (81 mg total) by mouth 1 (one) time each day. 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 DO NOT CRUSH OR CHEW 90 tablet 3 01/23/20 25 Active oxyCODONE (ROXICODONE) 5 mg/5 mL solution Take 7.5 mL (7.5 mg total) by mouth every 6 (six) hours if needed for severe pain. Max Daily Amount: 30 mg Active metoprolol tartrate (LOPRESSOR) 25 mg tablet Take 1 tablet (25 mg total) via g-tube 2 (two) times a day. Please crush and administer thru g tube 60 each 5 04/15/20 25 Active metoprolol succinate (TOPROL-XL) 50 mg 24 hr tablet Take 1 tablet (50 mg total) by mouth 1 (one) time each day. 03/14/20 22 025 Discontinued clopidogreL (PLAVIX) 75 mg tablet Take 1 tablet (75 mg total) by mouth 1 (one) time each day. 025 Discontinued(Pr escriber Discontinued) Active Problems Problem Noted Date Diagnosed Date Angina pectoris ([facility] V24) 03/01/2022 Overview (07/15/2024): post CABG Diabetes 1.5, managed as type 2 ([facility] V24, S/[facility] V28) 08/01/2021 Seizure disorder ([facility] V24, [facility] V28) 07/20 Hx of CABG 06/22/2021 [...] 6:55 PM EST): Type 2 diabetes mellitus ([facility] V24, [facility] V 28) 06/21/2021 Coronary artery disease invo lving coronary bypass graft of habematolel heart without angina pectoris 10/28/2020 Assessment & [...] She reports having recent labs completed at [facility] and we will attempt to obtain these for review. Assessment & Plan (09/12/2024 6:55 PM EST): Blood pressure is favorable on current medical therapy; continue metoprolol addition to newly added isosorbide. We will attempt to get more with her recent labs from her PCPs office for review. Peripheral vascular disease (CMS/HCC V24) 2020 Assessment & Plan (2024 12:12 PM EDT): The patient will continue to follow with vascular surgery as recommended. Assessment & Plan (09/12/2024 6:55 PM EST): The patient will continue to follow with vascular surgery as recommended. Hyperlipidemia 10/28/2020 Assessment & Plan (2024 12:12 PM EDT): The patient believes that she had a more recent lipid panel completed at [facility]; we will attempt to obtain these [...] Type Department Care Team Description 03/19/2025 Telephone [facility] [address] [facility] [address] [place] [address] Alex Alba MD 02/24/2025 8:45 AM EDT Consult Orthopedic Surgery - [place] 250 175 [facility] 250 [place] [address] Misael Martin DPM Controlled type 2 diabetes with neuropathy (CMS/HCC V24, CMS/HCC V28) (Primary Dx); Amputation of fifth toe of right foot (CMS/HCC V24); Peripheral vascular disease, unspecified (CMS/HCC V24); Neuropathy; Arthritis of both feet; Onychomycosis 01/19/2025 Telephone [facility] [address] [place] [address] Clemencia Aviles NP from Last 3 Months [...] 03/01/2022 DX:Fall Hematemesis DX:Hematemesis Left orbit fracture ([facility] V24, [facility] V28) DX:Left orbit fracture ([facility]) Upper GI bleed DX:Upper GI blee d Hemorrhagic shock ([facility] V 24, [facility] V28) DX:Hemorrhagic shock ([facility]) Acute kidney injury superimp osed on CKD ([facility] V24) DX:Acute kidney injury super imposed on CKD ([facility]) Hyponatremia DX:Hyponatremia Delirium DX:Delirium UTI (urinary tract infection) DX :UTI (urinary tract infection) Anemia DX:Anemia Claudication ([facility] V24) DX:Cl audication ([facility]) COPD (chronic obstructive pu lmonary disease) ([facility] V24, [facility] V28) DX:COPD (chronic o bstructive pulmonary disease) ([facility]) 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 ([facility] V 24, [facility] V28) DX: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 ([facility]) GERD (gastroesophageal reflu x disease) DX:GERD (gastroesophageal re flux disease) Hard of hearing DX:Hard of heari ng Neck strain DX:Neck strain Obesity DX:Obesity PONV (postoperative nausea a nd vomiting) DX:PONV (postoperative nause a and vomiting) Toe ulcer ([facility] V24, [facility] V28) DX:Toe ulcer ([facility]) Family History Medical History Relation Name [...] AM EDT Office Visit Orthopedic Surgery - [place] 250 [address] [facility] [address] [place] [address] Misael Martin DPM [address] [place] [address] 07/13/2025 2:00 PM EST Office Visit [facility] [address] [facility] 101 [place] [address] Alex Alba MD [address] [place] [address] [address] Flood [address] [place] [address] Health Maintenance Due Date Last Done Comments [...] age to complete this topic Insurance MEDICARE [facility] [address] [place] [address] Care Teams Children'S Institution Attendant Relationship Specialty Start Date End Date Jimmy Awan MD [address] [place] PCP - General 05/21/12
--- OUTSIDE RECORDS SUMMARY | 2025-04-16 07:29 | XMS_ITS | Encounter Summary ---
Author Organization [facility] Address [address] [facility] [address] [place] [address] Phone Care Team Providers Care Precinct Police Captain Name Role Phone Jimmy Awan MD Primary Care Provider [phone] Reason for Referral * Consultation (Elective) - Closed Specialty Diagnoses / Procedures Referred By Contac t Referred To Contact Cardiac Rehabilitation Diagnoses S/P CABG (coronary artery bypass graft) Cheryl Butts MD [address] [place] [address] Phone: tel: fax: [address] [address] Phone: tel: Referral ID Status Reason Start Date Expiration Date Visits Re quested Visits Authorized [id number] Closed 09/02/2021 09/02/2022 1 1 Encounter Details Date Type Department Care Team (Late st Contact Info) Description 09/02/2021 Transcribe Orders [facility] Department [address] [place] [address] Cheryl Butts MD [address] [place] [address] S/P CABG (coronary artery bypass graft) (Primary [...] Associated Diagnoses Order Schedule Ambulatory referral to [facility] Cardiac Rehab Outpatient Referral Routine S/P CABG (coronary artery bypass graft) Ordered: 09/02/2021 documented as of this encounter Visit Diagnoses Diagnosis S/P CABG (coronary artery bypass graft)- Primary Postsurgical aortocoronary bypass status documented in this encounter Care Teams Precinct Police Captain Relationship Specialty Start Date End Date Jimmy Awan MD [address] [place] [address] [place] [address] PCP - General Internal Medicine 07/10/21 documented as of this encounter Additional Source Comments The information contained in this document represents components of the legal health record. It is not the complete legal health record.[facility]
--- OUTSIDE RECORDS SUMMARY | 2025-04-16 07:29 | XMS_ITS | Clinical Summary ---
Author Organization [facility], Address [address] [facility] [address] [place] [address] Phone Care Team Providers Care Airport Control Operator Name Role Phone Jimmy Awan MD Primary Care Provider [phone] Allergies Active Allergy Reactions Criticality Noted Date [...] age to complete this topic Insurance Medicare [facility] Care Teams Airport Control Operator Relationship Specialty Start Date End Date Jimmy Awan MD [address] [place] [address] PCP - General Internal Medicine 07/28/21
--- OUTSIDE RECORDS SUMMARY | 2025-04-16 07:29 | XMS_ITS | Clinical Summary ---
Author Organization [facility] Address [address] [facility] [address] [place] [address] Phone Care Team Providers Care Online Marketing Manager Name Role Phone Jimmy Awan MD Primary Care Provider [phone] Allergies Active Allergy Reactions Criticality Noted Date [...] MEDICARE SUPPLEMENT MEDICARE PART A & B [facility] MEDICARE SUPPLEMENT MEDICARE PART A & B Member Subscriber Plan / Payer ( fective 2012-) Name:Jermain Gonzales Member ID:[id number] Relation to Subscriber:Self Name:Jermain Gonzales Subscriber ID:[id number] Payer ID:[id number] Group ID:Not on file Type:Medicare Address: [employer] [address] [place] [id number] [facility] MEDICARE SUPPLEMENT MEDICARE PART A & B [facility] MEDICARE SUPPLEMENT MEDICARE PART A & B MEDICARE SUPPLEMENT MEDICARE PART A & B Member Subscriber Plan / Payer ( fective 2012-Present) Name:Jermain Gonzales Member ID:[id number] Relation to Subscriber:Self Name:Jermain Gonzales Subscriber ID:[id number] Payer ID:[id number] Group ID:Not on file Type:Medicare Address: [employer] [address] MEDICARE SUPPLEMENT MEDICARE PART A & B [facility] MEDICARE SUPPLEMENT MEDICARE PART A & B [facility] MEDICARE SUPPLEMENT MEDICARE PART A & B MEDICARE SUPPLEMENT Care Teams Online Marketing Manager Relationship Specialty Start Date End Date Jimmy Awan MD [address] [place] [address] [place] [address] PCP - General Internal Medicine 07/10/21 Additional Source Comments The information contained in this document represents components of the legal health record. It is not the complete legal health record.[facility]
== END 2025-04-16 07:26 | disposition home or self-care (01) ==
LOC: HO.CT 07:25
PROVIDERS: PCP Internal Medicine; Visit Provider Hospitalist
DX: R91.1 Solitary pulmonary nodule (principal)
CPT/HCPCS: 71250

== ENCOUNTER → 2025-04-16 07:28 | Outpatient (BNV) | payer MEDICARE, OTHER, SELFPAY | PROVIDERS: PCP Internal Medicine; Visit Provider Radiology Diagnostic Radiology | DX: R91.1 Solitary pulmonary nodule (principal); I25.10 Atherosclerotic heart disease of native coronary artery without angina pectoris | CPT/HCPCS: 71250 ==

== ENCOUNTER 2025-05-21 09:24 | Outpatient (AMB) | payer MEDICARE, OTHER, SELFPAY ==
[2025-05-21 09:46] VITALS: BP 88/42; PULSE 63; O2SAT 95; BMI 24.7
--- NOTE | 2025-05-21 09:46 | HO.NEPHOV_ITS ---
Vital Signs 05/21/25 09:46 Height 5 ft 2 in Weight 135 lb BMI 24.7 BP 88/42 L Blood Pressure Location Lt brachial Position Sitting Pulse 63 Pulse Source Pulse Oximeter Pulse Oximetry (%) 95 Oxygen Delivery Method Room Air Intake Visit Reasons: FU Internet Marketing Strategist Required: No Accompanied by: Daughter Allergies evolocumab (From Adela Stern) Allergy (Intermediate, Verified 05/21/25 09:48) Hives doxycycline Allergy (Mild, Verified 05/21/25 09:48) Vomiting levetiracetam (From Keppra) Allergy (Mild, Verified 05/21/25 09:48) Vomiting amoxicillin Allergy (Unknown, Verified 05/21/25 09:48) rash Penicillins Allergy (Unknown, Verified 05/21/25 09:48) rash prednisone Allergy (Unknown, Verified 05/21/25 09:48) rash ceftriaxone (From Rocephin) Allergy (Verified 05/21/25 09:48) Rash milk Allergy (Verified 05/21/25 09:48) Unknown omeprazole Adverse Reaction (Unknown, Verified 05/21/25 09:48) worsening heartburn ranitidine Adverse Reaction (Unknown, Verified 05/21/25 09:48) worsening heartburn, abdominal pain (ONLY to generic) Medication List - Last Reconciled 05/21/25 by Bjorn Larios MD albuterol sulfate 90 mcg/actuation 2 puffs inhalation Q6H PRN 30 days albuterol sulfate 2.5 mg (3 mL) inhalation QID PRN aspirin 81 mg PO DAILY atorvastatin 80 mg PO BEDTIME blood sugar diagnostic (FreeStyle Lite Strips) As directed- to test blood sugar TID blood-glucose sensor (FreeStyle Anastasiia 2 Plus Sensor device) As directed famotidine 40 mg PO BID flash glucose scanning reader (FreeStyle Anastasiia 2 [place]) As directed furosemide (Lasix) 20 mg PO DAILY isosorbide mononitrate 20 mg PO BID lancets (FreeStyle Lancets) As directed once a day latanoprost 0.005% 1 drp ophthalmic (eye) BEDTIME loratadine 10 mg PO DAILY PRN 90 days NS metoprolol tartrate 25 mg PO BID nitroglycerin mg sublingual omeprazole-sodium bicarbonate 2-84 mg/mL (Konvomep) mL PO DAILY ondansetron 4 mg PO Q8H PRN 15 days oxycodone 7.5 mg PO BID PRN sennosides (senna) 10 mL PO BID PRN sucralfate malate, polymerized 10 mL mucous membrane BID HPI Comments Details: 82-year-old woman with a history of longstanding diabetes mellitus for more than 30 years along with hypertension and peripheral vascular disease. She was on losartan for quite some time. Recently was shortness discontinued due to a bump in the creatinine. She was on metformin which has been held due to worsening serum creatinine. Farxiga has been added. She has increased urination otherwise no other issues. She was accompanied by her daughter today. She has extensive to vascular disease undergone stent placements for progressive disease. History of coronary disease as well. She has history of smoking for almost 30 years but she quit smoking more than 20 years ago. 08/02/23:Feels better;Has dysuria - this started after staring SGLT-2 inhibitor 01/17/24; s/p Angiogram last week;c/o dysuria and burning sensation 05/15/24 Here for follow up;No urinary sypmtoms Has dyspnea on exertion. No chest pain 12/30/24 84-year-old female presenting with difficulty swallowing and associated symptoms. She reports an onset three months ago, with worsening pain and oropharyngeal swelling that have led to significant dietary changes. Despite being evaluated by an ENT specialist, there remains notable difficulty in fluid intake, compounding dysphagic symptoms. Previous throat issues included a polyp; however, current symptoms present with greater severity than experienced before. A diagnosis of chronic kidney disease with stable function is documented over the past two years, with consistent lab results indicating management efficacy. Her blood glucose remains controlled on Dapagliflozin, and her recent blood pres sure spikes may correlate with increased physical activity. Pain management has been assisted by Percocet, while gastroesophageal symptoms are managed with Zofran and Sucralfate. 05/21/25 - The patient is an 84-year-old female presenting with a follow-up for chronic conditions including diabetes mellitus and fluid retention. - Diabetes Mellitus: Recently started on insulin due to inadequate control with glyburide. - Pneumonia: Diagnosed during recent hospitalization, initially suspected to be cardiac, renal, or hematological. - Hyponatremia: Managed with IV fluids during hospitalization.noted during hospitalization - Hypotension: Amlodipine stopped due to low blood pressure; current medications include metoprolol and Lasix, with isosorbide held. [facility] Medical History (Updated 04/15/25 @ 11:43 by Nati Lee [facility]) Dysphagia Squamous cell carcinoma of base of tongue Head and neck cancer GABRIELA (obstructive sleep apnea) Pulmonary nodule Chronic kidney disease, stage 4 (severe) Chronic kidney disease, stage III (moderate) Atrophic vaginitis Orbital fracture Upper GI bleeding Hearing impairment Seizure Recurrent urinary tract infection Overweight (BMI 25.0-29.9) Vitamin D deficiency Allergic rhinitis Meralgia paresthetica of right side Anemia GERD without esophagitis Asthma Hyperkalemia Diabetic polyneuropathy associated with type 2 diabetes mellitus Peripheral vascular disease Pure hypercholesterolemia Benign essential hypertension Carotid atherosclerosis Coronary artery disease (~06/09/21) Type 2 diabetes mellitus with diabetic polyneuropathy Surgical History Hx of colonoscopy History of endoscopy S/P CABG x 4 (~06/09/21) History of cardiac catheterization (~12/2023) History of left-sided carotid endarterectomy S/P LASIK surgery History of right-sided carotid endarterectomy History of laparoscopic cholecystectomy Family History Father CVD (cardiovascular disease) Mother Stroke Brother CVD (cardiovascular disease) Esophageal cancer Social History Household Members: Children Housing: House Are you a primary acute care physical therapist to a significant other at home: No Do you presently have visiting nurse or other home services: No Alcohol intake: never Comment: cardiac Patient Tobacco Use Status: Former Tobacco user Tobacco use type: Cigarette e-Cigarette/Vaping Use: Never Used Second Hand Smoke Exposure: No Advance Directives Date on File: 01/11/22 service: No Current occupational status: retired 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 Lungs entry equal no rales. Heart S1-S2 heard no gallop or rub. Abdomen soft nontender. Neuro alert awake oriented. No asterixis. Extremities no edema. Results Reviewed Results Reviewed: : Cr 0.63 Nephrology Results: Hgb, (12.0-16.0) 11.8 g/dl L 03/24/25 WBC, (4.8-10.8) 8.6 X10*3/uL 03/24/25 Plt Count, (160-400) 284 X10*3/uL 03/24/25 Sodium, (135-145) 135 mmol/L 03/24/25 Potassium, (3.3-5.1) 4.3 mmol/L 03/24/25 Chloride, (96-108) 92 mmol/L L 03/24/25 Carbon Dioxide, (22-29) 34 mmol/L H 03/24/25 BUN, (9-16) 34 mg/dL H 03/24/25 Creatinine, (0.5-1.4) 1.29 mg/dL 03/24/25 Calcium, (8.4-10.2) 9.7 mg/dL Δ 03/24/25 Urine Protein, (Neg-Trace) 30 (1+) mg/dL H 03/24/25 Urine Creatinine 91.21 mg/dL 03/24/25 Renal US 08/17/23 Assessment & Plan Assessment & Plan (1) Chronic kidney disease, stage III (moderate): Code(s): N18.30 - Chronic kidney disease, stage 3 unspecified Category: Medical Qualifiers: Chronic kidney disease stage 3 subtype: stage 3b (GFR 30-44) Qualified Code(s): N18.32 - Chronic kidney disease, stage 3b (2) Anemia: Code(s): D64.9 - Anemia, unspecified Category: Medical Qualifiers: Anemia type: unspecified type Qualified Code(s): D64.9 - Anemia, unspecified (3) Hyperkalemia: Code(s): E87.5 - Hyperkalemia Category: Medical (4) Peripheral vascular disease: Code(s): I73.9 - Peripheral vascular disease, unspecified Category: Medical (5) Coronary artery disease: Onset Date: ~06/09/21 Comment: S/P stenting of ostial LAD; S/P CABG x 4 (RODRIGUEZ-mid LAD, SVG-PLV, left radial artery-OM, SVG-diag) on 06/09/21 Code(s): I25.10 - Atherosclerotic heart disease of [place] coronary artery without angina pectoris Category: Medical Qualifiers: Associated angina: without angina Coronary Disease-Associated Artery/Lesion type: [place] artery [place] vs. transplanted heart: [place] heart Qualified Code(s): I25.10 - Atherosclerotic heart disease of [place] coronary artery without angina pectoris (6) Carotid atherosclerosis: Comment: S/P left carotid revascularization and endarterectomy in 2019 Code(s): I65.29 - Occlusion and stenosis of unspecified carotid artery Category: Medical Qualifiers: Laterality: left Qualified Code(s): I65.22 - Occlusion and stenosis of left carotid artery Plan 84-year-old woman with CKD in a setting of hypertension longstanding diabetes mellitus and peripheral vascular disease. Renal fx at baseline Cr 1.2 BP is low 80/50 DC ISosorbide Hyponatremia Restrict PO water intake Recheck serum sodium Orders: Orders Blood Urea Nitrogen 3 Months N18.32 - Chronic kidney disease, stage 3b Electrolytes 3 Months N18.32 - Chronic kidney disease, stage 3b Calcium 3 Months N18.32 - Chronic kidney disease, stage 3b Creatinine 3 Months N18.32 - Chronic kidney disease, stage 3b Hemoglobin 3 Months N18.32 - Chronic kidney disease, stage 3b Coding Level of Care Code Est Pt Level 4 (07189) Diagnoses Stage 3b chronic kidney disease N18.32 Chronic kidney disease stage 3 subtype: stage 3b (GFR 30-44) Anemia, unspecified type D64.9 Anemia type: unspecified type Hyperkalemia E87.5 Peripheral vascular disease I73.9 Coronary artery disease involving [place] coronary artery of [place] heart without angina pectoris I25.10 Associated angina: without angina Coronary Disease-Associated Artery/Lesion type: [place] artery [place] vs. transplanted heart: [place] heart Atherosclerosis of left carotid artery I65.22 Laterality: left
--- OUTSIDE RECORDS SUMMARY | 2025-05-21 10:20 | XMS_ITS | Data Portability ---
Author Organization [facility] [employer] [employer] Address [address] [place] [address] Care Team Providers Care Mortgage Broker Name Role Phone GAURAV ROMAN Referring Provider [...] follow-up with primary care and/or cardiology, Dr. Geren for consideration of 30-day heart monitor in [...] with me as needed for neurological issues. melony Not available 10/13/2021 17:41:22 Plan of Treatment [...] ast No observ ation record ed. [email or web address] [facility] ([facility]) [address] [place], [address], 10/17/2021 14:29:22 Result Notes None recorded. Procedures Surgical History Date Name Laterality Status Provider Name and Address Organization Details Recorded Time 10/13/2021 DATA REVIEW completed Antony Hernandez MD [address] [place], [place] [address], [address], Formerly [facility] 10/13/2021 17:40:07 Imaging Results None recorded. Procedure Notes None recorded. Medical Equipment None Reported. Allergies Allergen ID Allergen Name Allergen Category Reaction Reaction Severity Criticality Documentation Date Start Date Code Code System Note Provider Name and Address Organization Details Recorded Time 1213 Product containin g penicilli n (product) medicatio n Not available Not available Not available 10/13/2021 46515 8001 SNOMED [place] [facility] 2 11:19:23 1214 doxycycli ne Not available Not available Not available Not available 10/13/2021 3640 RxNorm [facility] on [facility] 2 11:22:18 1215 Keppra medicatio n Not available Not available Not available 10/13/2021 77717 7 RxNorm [facility] on [facility] 2 11:22:28 Medications Name Sig [...] Updated DateTime 10/13/2021 157.48 cm 27.1 kg/m2 76858.67 g 12 /min Ciera Dumont [facility] 10/13/2021 11:18:56 Social History Question Answer Notes LastModified by Organizat ion Details LastModified Time Tobacco Smoking Status Former Smoker Ciera jenkins [facility] 10/13/2021 11:24:52 What Is Your Level Of Caffeine Consumption? Occasional Information not available 10/13/2021 What Is The Highest Grade Or Level Of School You Have Completed Or The Highest Degree You Have Received? [id number] Information not available 10/13/2021 Which Of Your [...] History Condition Response COPD or emphysema Y Diabetes Y Asthma Y Heartburn, acid reflux, GERD Y High Cholesterol or Hyperlipidemia Y Gynecological HistoryNo gynecological history recorded. Obstetrics History GPAL:G 0 P 0 0 0 0 Past Encounters Encounter ID Performer Location Encounter Start Date Encounter Closed Date Diagnosis/Indication Diagnosis SNOMED-CT Code Diagnosis ICD10 Code Diagnosis IMO Codes Diagnosis Note [id number] Antony Hernandez MD [facility] [address] [place] [address] [place] [address] 10/13/2021 10:47:12 10/17/2021 07:47:44 Complex partial seizure with impairment of consciousness 1777469 G40.209 Generalize d-onset seizures 1148406 G40.309 Acute cere brovascular insufficiency 59689301 I67.81 Health Concerns Section Related Observation LastModified by Organization Detai ls LastModified Time None Recorded Concern Status LastModified by Organization Details LastModified Time None Recorded Advance Directives Directive None Recorded Payers Insurance Date Sequence Insurance Name Policy Number Policy Jamil Covered Member ID Jamil Member ID Guarantor Name 10/17/2021 1 [place]IC[place]: [employer] Jermain Fowler Janet [id number] Jermain Gonzales 10/12/2021 2 [employer] [facility] [id number] Jermain Gonzales [id number] Jermain Gnozales Notes Date Note Type Note Provider Name [...] suspicion for seizure. Antony Hernandez MD [address] [place] [address] [place], [address], Formerly [facility] 10/13/2021 17:43:39 OBGyn Episode No OBEpisode recorded.
--- OUTSIDE RECORDS SUMMARY | 2025-05-21 10:20 | XMS_ITS | Encounter Summary ---
Author Organization [facility] Address [address] [facility] [address] [place] [address] Phone Care Team Providers Care Development Mgr Name Role Phone Jimmy Awan MD Primary Care Provider [phone] Reason for Referral * Consultation (Elective) - Closed Specialty Diagnoses / Procedures Referred By Contac t Referred To Contact Cardiac Rehabilitation Diagnoses S/P CABG (coronary artery bypass graft) Cheryl Butts MD [address] [place] [address] Phone: tel: fax: [address] [address] Phone: tel: Referral ID Status Reason Start Date Expiration Date Visits Re quested Visits Authorized [id number] Closed 09/02/2021 09/02/2022 1 1 Encounter Details Date Type Department Care Team (Late st Contact Info) Description 09/02/2021 Transcribe Orders [facility] Department [address] [place] [address] Cheryl Btuts MD [address] [place] [id number] S/P CABG (coronary artery bypass graft) (Primary [...] Associated Diagnoses Order Schedule Ambulatory referral to [facility] Cardiac Rehab Outpatient Referral Routine S/P CABG (coronary artery bypass graft) Ordered: 09/02/2021 documented as of this encounter Visit Diagnoses Diagnosis S/P CABG (coronary artery bypass graft)- Primary Postsurgical aortocoronary bypass status documented in this encounter Care Teams Development Mgr Relationship Specialty Start Date End Date Jimmy Awan MD [address] [place] [address] [place] [address] PCP - General Internal Medicine 07/10/21 documented as of this encounter Additional Source Comments The information contained in this document represents components of the legal health record. It is not the complete legal health record.[facility]
--- OUTSIDE RECORDS SUMMARY | 2025-05-21 10:20 | XMS_ITS | Clinical Summary ---
Author Organization [address] [place] [address] [place] [phone] Phone Care Team Providers Care Electrical Engineering Drafting Officer Name Role Phone Jimmy Awan MD Primary Care Provider [phone] Allergies Active Allergy Reactions Criticality Noted Date [...] 1 (one) time each day. 3 Active pantoprazole (PROTONIX) 40 mg EC tablet [...] mcg (1,000 unit) tablet Take by mouth. Activ e famotidine (PEPCID) 20 mg tablet Take 1 tablet (20 mg total) by mouth 2 (two) times a day. Active latanoprost (XALATAN) 0.005 % ophthalmic solution 1 Drop at bedtime. Active albuterol HFA (PROAIR HFA ; PROVENTIL HFA ; VENTOLIN HFA) 90 mcg/actuation inhaler Inhale 2 puffs by mouth every 4 (four) hours if needed. Active nitroglycerin (NITROSTAT) 0.3 mg SL tablet [...] 24 hr tabletIndication s:Coronary artery disease of [place] artery of [place] heart with stable angina pectoris ([facility] V24) TAKE 1 TABLET(30 MG) BY MOUTH [...] administer thru g tube 60 each 5 5 Active Active Problems Problem Noted Date Diagnosed Date Angina pectoris ([facility] V24) 03/01/2022 Overview (07/15/2024): post CABG Diabetes 1.5, managed as type 2 ([facility] V24, CM S/[facility] V28) 08/01/2021 Seizure disorder ([facility] V24, [facility] V28) 07/20 Hx of CABG [...] 6:55 PM EST): Type 2 diabetes mellitus ([facility] V24, [facility] V 28) 06/21/2021 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 Assessment & Plan (09/12/2024 6:55 PM EST): Blood pressure is favorable on current medical therapy; continue metoprolol addition to newly added isosorbide. We will attempt to get more with her recent labs from her PCPs office for review. Peripheral vascular disease ([facility] V24) 2020 Assessment & Plan (2024 12:12 PM EDT): The patient will continue to follow with vascular surgery as recommended. Assessment & Plan (09/12/2024 6:55 PM EST): The patient will continue to follow with vascular surgery as recommended. Hyperlipidemia 10/28/2020 Assessment & Plan (2024 12:12 PM EDT): The patient believes that she had a more recent lipid panel completed at [facility]; we will attempt to obtain these for [...] Encounters Date Type Department Care Team Description 05/13/2025 Telephone [facility] - [address] [place] [phone] Alex Alba MD 04/21/2025 Telephone [facility] [address] [place] [phone] Alex Alba MD 03/19/2025 Telephone [facility] [address] [place] [address] Alex Alba MD 02/24/2025 8:45 AM EDT Consult [facility] [place] [address] [facility] [address] [place] [phone] Misael Martin DPM Controlled type 2 diabetes with neuropathy ([facility] V24, [facility] V28) (Primary Dx); Amputation of fifth toe of right foot ([facility] V24); Peripheral vascular disease, unspecified ([facility] V24); Neuropathy; Arthritis of both feet; Onychomycosis from Last 3 Months Surgical History Surgery [...] 03/01/2022 DX:Fall Hematemesis DX:Hematemesis Left orbit fracture ([facility] V24, [facility] V28) DX:Left orbit fracture (HCC) Upper GI bleed DX:Upper GI blee d Hemorrhagic shock ([facility] V 24, [facility] V28) DX:Hemorrhagic shock ([facility]) Acute kidney injury superimp osed on CKD ([facility] V24) DX:Acute kidney injury super imposed on CKD ([facility]) Hyponatremia DX:Hyponatremia Delirium DX:Delirium UTI (urinary tract infection) DX :UTI (urinary tract infection) Anemia DX:Anemia Claudication ([facility] V24) DX:Cl audication ([facility]) COPD (chronic obstructive pu lmonary disease) ([facility] V24, [facility] V28) DX:COPD (chronic o bstructive pulmonary disease) ([facility]) 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 ([facility] V 24, [facility] V28) DX: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 ([facility]) GERD (gastroesophageal reflu x disease) DX:GERD (gastroesophageal re flux disease) Hard of hearing DX:Hard of heari ng Neck strain DX:Neck strain Obesity DX:Obesity PONV (postoperative nausea a nd vomiting) DX:PONV (postoperative nause a and vomiting) Toe ulcer ([facility] V24, [facility] V28) DX:Toe ulcer ([facility]) Family History Medical History Relation [...] AM EDT Office Visit [facility] [place] [address] [facility] 250 [place] [address] Misael Martin, DPDewayne 175 [facility] 250 [place] [address] 07/13/2025 2:00 PM EST Office Visit [facility] [address] [facility] 101 [place] [phone] Alex Alba MD [address] [address] Health Maintenance Due Date Last Done Comments [...] Annual BMP Blood Test 07/27/2022 Depression Screening 08/20/2024 COVID-19 Vaccine ( season) 2025 08/29/2021, 10/21/2020, 09/29/2020 Influenza Vaccine (#1) 2025 , 07/11/2023, 07/25/2021, [...] age to complete this topic Insurance MEDICARE [facility] [address] [place] [address] Care Teams Electrical Engineering Drafting Officer Relationship Specialty Start Date End Date Jimmy Awan MD [address] [place] [address] [address] [place] PCP - General 05/21/12
--- OUTSIDE RECORDS SUMMARY | 2025-05-21 10:20 | XMS_ITS | Clinical Summary ---
Author Organization [facility], Address [address] [place] [address] Phone Care Team Providers Care Last Inserter Name Role Phone Jimmy Awan MD Primary Care Provider [phone] Allergies Active Allergy Reactions Criticality Noted Date [...] Pneumococcal Vaccine: 50+ Ye ars (1 of 2 - PCV) 1959 Diabetes: Hemoglobin A1C 07/22/2021 Diabetes: Ophthalmology Exam 07/22/2021 Diabetes: Pedal Pulse Checked 07/22/2021 Diabetes: Sensory Foot Exam 07/22/2021 Diabetes: Visual Foot Exam 07/22/2021 Influenza Vaccine (#1) 2025 Hepatitis B Vaccine Aged Out No longe r eligible based on patient's age to complete this topic Insurance Medicare [facility] Care Teams Last Inserter Relationship Specialty Start Date End Date Jimmy Awan MD [address] [place] [address] PCP - General Internal Medicine 07/28/21
== END 2025-05-21 10:06 | disposition home or self-care (01) ==
LOC: HO.HKA 09:24
PROVIDERS: PCP Internal Medicine; Visit Provider Internal Medicine Hypertension Specialist
DX: N18.32 Chronic kidney disease, stage 3b (principal); D64.9 Anemia, unspecified; E87.5 Hyperkalemia; I73.9 Peripheral vascular disease, unspecified; I25.10 Atherosclerotic heart disease of native coronary artery without angina pectoris; I65.22 Occlusion and stenosis of left carotid artery
CPT/HCPCS: 99214

== ENCOUNTER → 2025-05-21 09:24 | Outpatient (BNVA) | payer MEDICARE, OTHER, SELFPAY | PROVIDERS: PCP Internal Medicine; Visit Provider Internal Medicine Hypertension Specialist | DX: N18.32 Chronic kidney disease, stage 3b (principal); D64.9 Anemia, unspecified; I73.9 Peripheral vascular disease, unspecified; I25.10 Atherosclerotic heart disease of native coronary artery without angina pectoris; E87.5 Hyperkalemia; I65.22 Occlusion and stenosis of left carotid artery | CPT/HCPCS: 99212 ==

== ENCOUNTER 2025-05-22 14:12 | Outpatient (AMB) | payer MEDICARE, OTHER, SELFPAY ==
[2025-05-22 14:15] VITALS: BP 92/46; PULSE 54; O2SAT 94; BMI 25.8
--- NOTE | 2025-05-22 14:15 | MHC.PC.OV ---
Vital Signs 05/22/25 14:15 Height 5 ft 2 in Weight 140 lb 14.006 oz BMI 25.8 BP 92/46 L Blood Pressure Location Lt brachial Position Sitting Pulse 54 Pulse Source Pulse Oximeter Pulse Oximetry (%) 94 Oxygen Delivery Method Room Air Intake Visit Reasons: [facility] 05/18 Aquaculture Director Required: No Accompanied by: Self / Same As Patient Allergies evolocumab (From Repatha SureClick) Allergy (Intermediate, Verified 05/22/25 14:44) Hives doxycycline Allergy (Mild, Verified 05/22/25 14:44) Vomiting levetiracetam (From Keppra) Allergy (Mild, Verified 05/22/25 14:44) Vomiting amoxicillin Allergy (Unknown, Verified 05/22/25 14:44) rash Penicillins Allergy (Unknown, Verified 05/22/25 14:44) rash prednisone Allergy (Unknown, Verified 05/22/25 14:44) rash ceftriaxone (From Rocephin) Allergy (Verified 05/22/25 14:44) Rash milk Allergy (Verified 05/22/25 14:44) Unknown omeprazole Adverse Reaction (Unknown, Verified 05/22/25 14:44) worsening heartburn ranitidine Adverse Reaction (Unknown, Verified 05/22/25 14:44) worsening heartburn, abdominal pain (ONLY to generic) Medication List - Last Reconciled 05/22/25 by Jimmy Awan MD albuterol sulfate 90 mcg/actuation 2 puffs inhalation Q6H PRN 30 days albuterol sulfate 2.5 mg (3 mL) inhalation QID PRN aspirin 81 mg PO DAILY atorvastatin 80 mg PO BEDTIME blood sugar diagnostic (FreeStyle Lite Strips) As directed- to test blood sugar TID blood-glucose sensor (FreeStyle Anastasiia 2 Plus Sensor device) As directed famotidine 40 mg PO BID flash glucose scanning reader (FreeStyle Anastasiia 2 [place]) As directed furosemide (Lasix) 20 mg PO DAILY insulin glargine (Basaglar KwikPen U-100 Insulin) 12 units subcut QPM insulin lispro (Admelog SoloStar U-100 Insulin lispro) 1 sliding scale dose subcut USEASDIRECTD lancets (FreeStyle Lancets) As directed once a day latanoprost 0.005% 1 drp ophthalmic (eye) BEDTIME loratadine 10 mg PO DAILY PRN 90 days NS metoprolol tartrate 25 mg PO BID nitroglycerin mg sublingual omeprazole-sodium bicarbonate 2-84 mg/mL (Konvomep) mL PO DAILY ondansetron 4 mg PO Q8H PRN 15 days oxycodone 7.5 mg PO BID PRN sennosides (senna) 10 mL PO BID PRN sucralfate malate, polymerized 10 mL mucous membrane BID Tobacco use date assessed: 05/22/25 Fall risk assessment: 1 Fall in past year Last assessed Fall Risk: 05/22/25 Dental Screening Dental Screen Date: 05/22/25 Did you have a dental visit in the last 12 months?: Yes Did you have a dental problem in the last 6 months where you did not have access to dental care?: No Was dental information given to patient?: Patient has dentist HPI [facility] 05/18 HPI Details Patient comes in today for her HDF follow up visit She was admitted to [facility] for a few days this past weekend when she was brought to the ER there with increased nausea and vomiting as well as urinary retention She just had a G-tube placed and was throwing up her G-tube feeding so there were concerns whether the G-tube was compromised or not She had been feeling unwell for several days s/p radiation treatment for her tongue cancer and has been experiencing epigastric and central chest pain and unable to tolerate any feeding She also had elevated troponin on initial labs, raising concerns for NSTEMI and was subsequently admitted for further management Cardiac workups came back negative but abdominal CT revealed the presence of a left lower lobe pneumonia in the She was initially started on IV cefepime and this was later transitioned to oral antibiotics at the time of her discharge Her troponin levels continue to stay elevated but this was mostly attributed to her pneumonia other comorbidities Patient states that her symptoms gradually improved with medical management and she was eventually discharged home earlier this week States that since her discharge from the hospital, she has been doing okay with no other acute issues although according to her daughter, she fell at home earlier this morning but patient states that she did not sustain any injuries Patient currently denies any headaches or dizziness; denies any fever She is still not able to swallow anything except sips of water due to her tongue cancer and recent radiation therapy and all of her feedings are through her G tube at present She denies any exertional chest pains, no increased shortness of breath She presently has no nausea, vomiting or abdominal pain and no change in bowel habits noted FOR[facility]LY [facility] Medical History Dysphagia Squamous cell carcinoma of base of tongue Head and neck cancer GABRIELA (obstructive sleep apnea) Pulmonary nodule Chronic kidney disease, stage 4 (severe) Chronic kidney disease, stage III (moderate) Atrophic vaginitis Orbital fracture Upper GI bleeding Hearing impairment Seizure Recurrent urinary tract infection Overweight (BMI 25.0-29.9) Vitamin D deficiency Allergic rhinitis Meralgia paresthetica of right side Anemia GERD without esophagitis Asthma Hyperkalemia Diabetic polyneuropathy associated with type 2 diabetes mellitus Peripheral vascular disease Pure hypercholesterolemia Benign essential hypertension Carotid atherosclerosis Coronary artery disease (~06/09/21) Type 2 diabetes mellitus with diabetic polyneuropathy Surgical History Hx of colonoscopy History of endoscopy S/P CABG x 4 (~06/09/21) History of cardiac catheterization (~12/2023) History of left-sided carotid endarterectomy S/P LASIK surgery History of right-sided carotid endarterectomy History of laparoscopic cholecystectomy Family History Father CVD (cardiovascular disease) Mother Stroke Brother CVD (cardiovascular disease) Esophageal cancer Social History Household Members: Children Housing: House Are you a primary childbirth and infant care teacher to a significant other at home: No Do you presently have visiting nurse or other home services: No Alcohol intake: never Comment: cardiac Patient Tobacco Use Status: Former Tobacco user Tobacco use type: Cigarette e-Cigarette/Vaping Use: Never Used Second Hand Smoke Exposure: No Advance Directives Date on File: 01/11/22 service: No Current occupational status: retired 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 Depression Screening Interpretation: Positive Depression Screening Follow-up: Follow-up Visit Requested Depression Screening Done: Yes Source: Developed by Yohana RocaW. Nnamdi, Jay Jay Metz and colleagues, with an educational yessi from [employer]. Thrive Questionnaire Date Thrive assessed: 12/28/24 I am a: Patient What is your living situation today?: I have a steady place to live Within the past 12 months, did the food you bought not last and you didn't have the money to get more?: Never true Within the past 12 months, did you worry whether your food would run out before you got money to buy more?: Never true Do you have trouble paying for medicines?: Yes Do you have trouble getting transportation to medical appointments?: No Do you have trouble paying your heating and electricity bill?: I choose not to answer this question Do you have trouble taking care of your child, family member or friend?: No Do you have trouble with day-to-day activities such as bathing, preparing meals, shopping, managing finances, etc.?: Yes Are you currently unemployed and looking for a job?: No Are you interested in more education?: No Currently or been in a relationship where the following occur: No concerns reported THRIVE Score: 0 AUDIT C Alcohol Use Questionnaire (AUDIT-C) 1. How often do you have a drink containing alcohol?: Never 3. How often do you have six or more drinks on one occasion?: Never Total Score: 0 Score Reviewed/Action Taken: Yes GALILEA-7 AMB Questionnaire GALILEA-7 Date GALILEA - 7 assessed: 03/30/25 Source: Developed by Drs. Aquiles Alford, Yohana Coto, Jay Jay Metz and colleagues, with an educational yessi from [employer]. Review of Systems Const Denies chills, Reports difficulty sleeping (at times), Reports fatigue, Denies fever(s) and Denies headache(s) ENT Details: (+) recurrent pain over the left side of the neck and over the left jaw area Reports dysphagia (unable to swallow most solids now), Denies dizziness, Denies otalgia, Denies headache(s), Reports hearing loss, Reports neck pain (over the left side of the neck), Reports odynophagia and Denies sore throat Card Denies chest pain, Denies palpitations and Reports dyspnea on exertion (mild) Resp Denies chest congestion, Denies cough and Reports dyspnea on exertion (mild) GI Details: currently has a G-tube in place Denies abdominal pain, Denies constipation, Reports dysphagia (unable to swallow most solids now), Denies heartburn, Denies diarrhea, Denies nausea, Reports odynophagia and Denies vomiting Denies difficulty voiding, Denies nocturia and Denies dysuria Musc Denies back pain and Reports neck pain (over the left side of the neck) Skin/Breast Denies rash Neuro Denies dizziness and Denies headache(s) Endo Reports fatigue and Denies palpitations Physical exam (Primary Care) Vital Signs: Last Vital Signs Pulse 54 05/22/25 14:15 BP 92/46 L 05/22/25 14:15 Pulse Ox 94 05/22/25 14:15 Oxygen Delivery Method Room Air 05/22/25 14:15 BMI result Body Mass Index 25.8 Tobacco/Smoking Status: Tobacco use Status Tobacco use date assessed 05/22/25 05/22/25 14:32 Patient Tobacco Use Status Former Tobacco user 05/22/25 14:32 Tobacco use type Cigarette 05/22/25 14:32 e-Cigarette/Vaping Use Never Used 05/22/25 14:32 Depression Screening Interpretation: Positive Depression Screening Follow-up: Follow-up Visit Requested Thrive Assessment: Date of Thrive Assessment Date Thrive assessed 12/28/24 05/22/25 14:32 Currently or been in a relationship where the following occur: No concerns reported Const General: no acute distress and alert HENMT Other: (+) tenderness on palpation over the left side of the neck and over the left preauricular area and the left TMJ area Ears: TM's normal bilaterally and EAC's normal Throat: Yes posterior oropharynx normal and Yes tonsils normal (no TP congestion noted) Neck Other: (+) large, slightly tender palpable mass on the left side of the neck Thyroid: Thyroid normal Resp Auscultation: clear to auscultation bilaterally, no rales and no wheezes Cardio Rate: regular rate Rhythm: regular rhythm Heart sounds: no murmurs GI Other: (+) G-tube Palpation (GI): Soft to palpation and nontender Auscultation: normal bowel sounds General: Yes no CVA tenderness Back/Spine/Pelvis Back: no CVA tenderness Thoracic/Lumbar Spine: No lumbar spinal tenderness Skin Rashes: no rashes Extrem General: Yes no clubbing, cyanosis or edema Coding Level of Care Code Est Pt Level 4 (75129) Diagnoses Pneumonia of left lower lobe due to infectious organism J18.9 Pneumonia type: due to unspecified organism Laterality: left Lung location: lower lobe of lung Squamous cell carcinoma of base of tongue C01 Coronary artery disease involving [place] coronary artery of [place] heart without angina pectoris I25.10 Associated angina: without angina Coronary Disease-Associated Artery/Lesion type: [place] artery [place] vs. transplanted heart: [place] heart Atherosclerosis of left carotid artery I65.22 Laterality: left Peripheral vascular disease I73.9 Pure hypercholesterolemia E78.00 Benign essential hypertension I10 Type 2 diabetes mellitus with diabetic polyneuropathy, without long-term current use of insulin E11.42 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 penitentiary insulin use: without penitentiary use Diabetic polyneuropathy associated with type 2 diabetes mellitus E11.42 Stage 3b chronic kidney disease N18.32 Chronic kidney disease stage 3 subtype: stage 3b (GFR 30-44) Anemia, unspecified type D64.9 Anemia type: unspecified type Moderate persistent asthma without complication J45.40 Asthma complication type: uncomplicated Asthma persistence: persistent Asthma severity: moderate Allergic rhinitis, unspecified seasonality, unspecified trigger J30.9 Allergic rhinitis seasonality: unspecified Allergic rhinitis trigger: unspecified Vitamin D deficiency E55.9 Seizure R56.9 Assessment & Plan Assessment & Plan (1) Pneumonia: Code(s): J18.9 - Pneumonia, unspecified organism Category: Medical Qualifiers: Pneumonia type: due to unspecified organism Laterality: left Lung location: lower lobe of lung Qualified Code(s): J18.9 - Pneumonia, unspecified organism Plan: Resolving with Abx Tx This was seen incidentally on abdominal CT done [facility] last week when patient was admitted (2) Squamous cell carcinoma of base of tongue: Code(s): C01 - Malignant neoplasm of base of tongue Category: Medical Plan: Patient just completed her radiation therapy for her 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 a couple of weeks ago on 05/04/2025 She was advised that she is not a candidate for surgery or chemotherapy due to her preexisting medical conditions and significant cardiac Hx Patient now has a G-tube in place for all of her feedings and medications she is still not able to swallow anything except for sips of water (3) Coronary artery disease: Onset Date: ~06/09/21 Comment: S/P stenting of ostial LAD; S/P CABG x 4 (RODRIGUEZ-mid LAD, SVG-PLV, left radial artery-OM, SVG-diag) on 06/09/21 Code(s): I25.10 - Atherosclerotic heart disease of [place] coronary artery without angina pectoris Category: Medical Qualifiers: Associated angina: without angina Coronary Disease-Associated Artery/Lesion type: [place] artery [place] vs. transplanted heart: [place] heart Qualified Code(s): I25.10 - Atherosclerotic heart disease of [place] coronary artery without angina pectoris Plan: S/P CABG x 4 in May 2021 She reportedly had an angiogram/cardiac cath done at [facility] last year (2023) and was advised that she has (+) occluded SVG to PL but there are no options for percutaneous revascularization of this graft and she should just continue with aggressive medical management Continue Metoprolol ER 50 mg QD and Aspirin 81 mg QD - Aspirin was previously discontinued due to her upper GI bleeding but due to her increasing difficulty swallowing currently, cardiology started her back on low dose Aspirin QD and stopped her Clopidogrel 75 mg QD instead Her daughter states that she has not taken her Isosorbide Mononitrate ER 30 mg QD for a few days now and her previous recurrent dizziness has not recurred since; patient also denies experiencing any chest pains since her discharge from the hospital States that she will reach out to patient's physician credentialing specialist to see if they have any objection to patient discontinuing her Isosorbide mononitrate at this time Patient also has NTG 0.4 mg tablets to take SL PRN for chest pains Follow up with cardiology (Dr. Alba) as scheduled (4) Carotid atherosclerosis: Comment: S/P left carotid revascularization and endarterectomy in 2019 Code(s): I65.29 - Occlusion and stenosis of unspecified carotid artery Category: Medical Qualifiers: Laterality: left Qualified Code(s): I65.22 - Occlusion and stenosis of left carotid artery Plan: Continue Aspirin 81 mg QD; Clopidogrel was discontinued due to her worsening dysphagia lately She had a repeat carotid US done a couple of years ago that reportedly came out stable with no significant disease progression Follow up with vascular surgery (Dr. Jesus) as scheduled (5) Peripheral vascular disease: Code(s): I73.9 - Peripheral vascular disease, unspecified Category: Medical Plan: Follow up with vascular surgery as scheduled (6) Pure hypercholesterolemia: Code(s): E78.00 - Pure hypercholesterolemia, unspecified Category: Medical Plan: Reinforced low cholesterol diet Continue Atorvastatin 80 mg QD and Ezetimibe 10 mg QD (7) Benign essential hypertension: Code(s): I10 - Essential (primary) hypertension Category: Medical Plan: Reinforced low-sodium diet - goal is systolic BP of at least 120 to 130 mm or less due to her comorbidities Continue Metoprolol tartrate 25 mg BID (this was changed from Metoprolol ER as her medications are now given through her G-tube and they often have to be crushed before being administered; Losartan was previously discontinued due to hyperkalemia Amlodipine 5 mg was also discontinued due to side effects (edema) (8) Type 2 diabetes mellitus with diabetic polyneuropathy: Code(s): E11.42 - Type 2 diabetes mellitus with diabetic polyneuropathy Category: Medical Qualifiers: 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 penitentiary insulin use: without penitentiary use Qualified Code(s): E11.42 - Type 2 diabetes mellitus with diabetic polyneuropathy Plan: Her HgbA1c was at 5.8% on her labs done a couple of months ago (this was previously at 6.4% a few months ago) - goal is < 7.0% Reinforced diabetic diet She was taken OFF Metformin a few months ago due to her declining renal function and was then on Farxiga 10 mg QD and Glyburide 5 mg Q AM and 2.5 mg Q PM but she was also having trouble swallowing her Farxiga tablet She is now only on Basaglar 12 units once a day in the evening and Admelog U 100 TID with meals per sliding scale and is no longer on any other oral medications for her diabetes (9) Diabetic polyneuropathy associated with type 2 diabetes mellitus: Code(s): E11.42 - Type 2 diabetes mellitus with diabetic polyneuropathy Category: Medical Plan: Continue Oxycodone 5 mg 2 to 3 times a day ONLY NEEDED for severe pain Will consider starting her on Gabapentin if her symptoms progress or worsen (10) Chronic kidney disease, stage III (moderate): Code(s): N18.30 - Chronic kidney disease, stage 3 unspecified Category: Medical Qualifiers: Chronic kidney disease stage 3 subtype: stage 3b (GFR 30-44) Qualified Code(s): N18.32 - Chronic kidney disease, stage 3b Plan: Her serum creatinine and GFR appears to have stabilized on her recent labs Follow up with nephrology as scheduled Will continue to monitor GFR and renal function regularly (11) Anemia: Code(s): D64.9 - Anemia, unspecified Category: Medical Qualifiers: Anemia type: unspecified type Qualified Code(s): D64.9 - Anemia, unspecified Plan: Stable - was most likely multifactorial, including due to upper GI bleeding a couple of years ago that required Hemospray and 2 units of PRBC Will continue to monitor her CBC regularly Follow up with hematology (Dr. Vazquez) as scheduled (12) Asthma: Code(s): J45.909 - Unspecified asthma, uncomplicated Category: Medical Qualifiers: Asthma complication type: uncomplicated Asthma persistence: persistent Asthma severity: moderate Qualified Code(s): J45.40 - Moderate persistent asthma, uncomplicated Plan: Controlled Continue Albuterol HFA 2 puffs 4 times a day as needed Patient also has a nebulizer that she uses (with Albuterol solution 0.083%) up to 4 times a day when needed (13) Allergic rhinitis: Code(s): J30.9 - Allergic rhinitis, unspecified Category: Medical Qualifiers: Allergic rhinitis seasonality: unspecified Allergic rhinitis trigger: unspecified Qualified Code(s): J30.9 - Allergic rhinitis, unspecified Plan: Continue Loratadine 10 mg QD PRN (14) Vitamin D deficiency: Code(s): E55.9 - Vitamin D deficiency, unspecified Category: Medical Plan: Continue Vitamin D3 1000 units QD (15) Seizure: Code(s): R56.9 - Unspecified convulsions Category: Medical Plan: This was most likely due to (adverse reaction from) Doxycycline; she has had no recurrence of seizures since her discharge from [facility] a couple of years ago CTA of the head/neck and MRI of the brain done back then came out negative EEG done showed mild to moderate background slowing with occasional triphasic waves but no epileptiform activity was noted Neurology (Dr. Hernandez) thinks that patient actually had a TIA instead of a seizure Plan Follow up as scheduled next month
--- OUTSIDE RECORDS SUMMARY | 2025-05-22 14:19 | XMS_ITS | Clinical Summary ---
Author Organization [facility], Address [address] [place] [address] Phone Care Team Providers Care Manager Bakery Name Role Phone Jimmy Awan MD Primary Care Provider [phone] Allergies Active Allergy Reactions Criticality Noted Date [...] Insurance Medicare [facility] Care Teams Manager Bakery Relationship Specialty Start Date End Date Jimmy Awan MD [address] [place] [address] PCP - General Internal Medicine 07/28/21
--- OUTSIDE RECORDS SUMMARY | 2025-05-22 14:20 | XMS_ITS | Data Portability ---
Author Organization [place] - [facility], Allergy Address [address] [address] Care Team Providers Care Quill Skinner Name Role Phone ABEL, GAURAV Primary Care Provider [phone] Assessment No assessment recorded. Plan of Treatment Reminders Order Date Submit Date Provider Last Modified By Organization Details Last Modified Time Details Appointments Establish ed 30 2024 10:30A M AMY Chacko MD Not available Not available Not available Lab None recorded. Referral None recorded. Procedures None recorded. Surgeries None recorded. Imaging None recorded. Medication Orders None recorded. Patient TargetsNo targets recorded. Patient InstructionsNo instructions recorded. Reason for Referral None Reported. Results Created Date Observation Date Name Description Value Unit Range Abnormal Flag Note LastModifiedBy Organization Detail LastModifiedTime 02/10/20 25 02/08/2025 PET-C T, skull base to mid-t high scan [facility] PET/CT Imagin [facility] Access ion Number : [id number] Patien t Name: Jermain Gonzales Shawna l Record Number : [id number] Date of : 1940 Date of Exam: 2024 Referr ing Physic erica: Leah ta, Amy [facility] [place] 100 [facility] [address] [place] [address] Exam: PT Skull Base to Mid Thigh CPT 72889 Room Descri ption: [facility] Pt4 PT Skull Base to Mid Thigh CPT 87945 Histor y: Initia l stagin g of invasi ve squamo us cell carcin florencio of the left staff physical therapy assistant ior aspect of the tongue Compar judith: CT abdome n/pelv is 023 PET techni que: Beginn ing approx imatel y 60 minute s follow ing the intrav enous admini strati on of 11.7 mCi of F-18 fluoro deoxyg lucose in the left hand, emissi on images were obtain ed from the skull base to the mid thighs . Follow ing this CT was obtain ed at the same levels withou t IV or oral contra st with the patien t mainparmjit ining quiet breath ing. Follow ing attenu ation correc tion using the CT images , axial sagitt al and gonzalez l images were recons tructe d. SUV values normal ized by body mass. The blood glucos e at the time of inject ion was 97 mg/dL. Findin gs: [employer] Refere nce Values : Ascend ing aortic blood pool: SUV mean 2.1, SUV max 2.7. Right hepati c lobe: SUV mean 2.2, SUV max 3.4. Head/n josselyn: Irregu lar shaped lesion noted at the left staff physical therapy assistant ior aspect of the tongue measur ing approx imatel y 3.0 x 2.3 cm with max SUV of 19.8 (axial image 42). Causes mild compre ssion of the oropha rynx. There are large necrot ic appear ing left cervic al level IIA lymph nodes. Status post bilate ral lens extrac tion. Severe athero sclero tic vascul ar discus sions of the left subcla vian artery Chest: No FDG-av id lung lesion . Modera te gonzalez ry artery calcif icatio ns. No pleura l or perica rdial effusi on. No enlarg ed or FDG-av id suprac lavicu lar, medias tinal, hilar, or axilla ry lymph nodes. Abdome n/pelv is: No eviden ce of FDG-av id malign jason. Status post cholec ystect jung. Coloni c divert iculos is withou t eviden ce of acute divert iculit is. The liver, spleen , pancre as, kidney s and adrena ls appear normal . No ascite s. Severe athero sclero tic vascul ar calcif icatio ns of the abdomi nal aorta, SMA and multip le branch es origin ating from the SMA. Heavy periph eral calcif icatio n of the spleni c artery . No enlarg ed or FDG-av id lymph nodes in the abdome n or pelvis . Soft tissue s: No FDG avid soft tissue lesion . Small fat-co ntaini ng umbili tavo hernia . Osseou s struct ures: No abnorm al FDG uptake . Impres helio: 1. Promin ently FDG avid irregu lar shaped lesion at the staff physical therapy assistant ior left aspect of the tongue is consis tent with biopsy -prove n squamo us cell carcin florencio. 2. Large necrot ic appear ing left cervic al level IIA lymph nodes are concer mio for metast asis. I, Jesus Chavez MD, have review ed the images and report and concur with the reside nt, Navdeep Avilas, joseph blake. Electr onical ly Signed By: Jesus Chavez MD reppsteiner [facility] ([facility]) [address] [place], [address], 02/23/2025 16:55:00 Result Notes Documentation Provider Name and Address Organization Details Recorded Time Pet-ct, Skull Base To Mid-thigh Scan : [facility] PET/CT Imaging Accession Number: [id number] Patient Name: Jermain Gonzales Date of : 1940 Date of Exam: 02-08-2025 Referring Physician: Amy [facility] [address] [address] Exam: PT Skull Base to Mid Thigh CPT 59397 Room Description: [facility] Pt4 PT Skull Base to Mid Thigh CPT 85389 History: 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 Following this CT was obtained at the same levels without IV or oral contrast with the patient maintaining quiet breathing. Following attenuation correction using the CT images, axial sagittal and coronal images were reconstructed. SUV values normalized by body mass. The blood glucose at the time of injection was 97 mg/dL. Findings: Internal Reference Values: Ascending aortic blood pool: SUV mean 2.1, SUV max 2.7. Right hepatic lobe: SUV mean 2.2, SUV max 3.4. Head/neck: Irregular shaped lesion noted at the left posterior aspect of the tongue measuring approximately 3.0 x 2.3 cm with max SUV of 19.8 (axial image 42). Causes mild compression of the oropharynx. There are large necrotic appearing left cervical level IIA lymph nodes. Status post bilateral lens extraction. Severe atherosclerotic vascular discussions of the left subclavian artery Chest: No FDG-avid lung lesion. Moderate coronary artery calcifications. No pleural or pericardial effusion. No enlarged or FDG-avid supraclavicular, mediastinal, hilar, or axillary lymph nodes. Abdomen/pelvis: No evidence of FDG-avid malignancy. Status post cholecystectomy. Colonic diverticulosis without evidence of acute diverticulitis. The liver, spleen, pancreas, kidneys and adrenals appear normal. No ascites. Severe atherosclerotic vascular calcifications of the abdominal aorta, SMA and multiple branches originating from the SMA. Heavy peripheral calcification of the splenic artery. No enlarged or FDG-avid lymph nodes in the abdomen or pelvis. Soft tissues: No FDG avid soft tissue lesion. Small fat-containing umbilical hernia. Osseous structures: No abnormal FDG uptake. Impression: 1. Prominently FDG avid irregular shaped lesion at the posterior left aspect of the tongue is consistent with biopsy-proven squamous cell carcinoma. 2. Large necrotic appearing left cervical level IIA lymph nodes are concerning for metastasis. I, Jesus Chavez MD, have reviewed the images and report and concur with the resident, Jeanine Ralph, findings. 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 82693084 Active 2024 AMY Chacko MD [address] [place] [address], [phone], [place] - [facility] 15:39:25 Finding of neck region 789501591 Active 2024 AMY Chacko MD [address] [place] [address] [place], [address], [facility] - [facility] [place] 15:39:33 Chronic sore throat 917473207 Active 2024 AMY Chacko MD [address] [address], [place], [address], [facility] - [facility] [place] 15:39:42 Oropharyngeal dysphagia 18432341 Active 2024 AMY Chacko MD [address] [address], [place], [address], [facility] - [facility] [place] 15:39:47 Malignant neoplasm of base of tongue 090385847 Active 2024 AMY Chacko MD [address] [address], [place], [address], [facility] - [facility] [place] 11:43:43 Problem Notes None recorded. Procedures Surgical History Date Name Laterality Status Provider Name and Address Organization Details Recorded Time Biopsy Anterior Tongue completed AMY CLEVELAND MD [address], [address], [facility] 01/19/2025 11:57:05 FFL_RE completed AYM CLEVELAND MD [address] [place] [address], [phone], [facility] 01/13/2025 15:55:18 Imaging Results None recorded. Procedure Notes None recorded. Medical Equipment None Reported. Medications Name Sig Start Date Stop Date Status Note LastModified by Organization Details LastModified Time latanoprost 0.005 % eye drops INSTILL 1 DROP IN BOTH EYES EVERY EVENING active Not Available Not Available No t Available fluconazole 100 mg tablet TAKE 1 TABLET BY MOUTH EVERY DAY active Not Available Not Available No t Available atorvastatin 80 mg tablet TAKE 1 TABLET BY MOUTH AT BEDTIME active Not Available Not Available No t Available nitroglycerin 0.[address] 1 TABLET UNDER THE TONGUE EVERY 5 MINUTES IF NEEDED FOR CHEST PAIN active Not Available Not Available N ot Available glyburide 5 mg tablet TAKE 1 TABLET BY MOUTH IN THE AM AND 1/2 TABLET BY MOUTH IN THE PM active Not Available Not Available No t Available metoprolol succinate ER 50 mg tablet,extend ed release 24 hr TAKE 1 TABLET BY MOUTH DAILY active Not Available Not Available No t Available sucralfate 1 gram tablet TAKE 1 TABLET BY MOUTH AT BEDTIME active Not Available Not Available No t Available isosorbide mononitrate ER 30 mg tablet,extend ed release 24 hr active Not Available Not Available Not Available clopidogrel 75 mg tablet TAKE 1 TABLET BY MOUTH DAILY active Not Available Not Available No t Available ciprofloxacin 250 mg tablet TAKE 1 TABLET BY MOUTH TWICE DAILY FOR 3 DAYS active Not Available Not Available No t Available oxycodone-erica taminophen 5 mg-325 mg tablet TAKE 1 TABLET BY MOUTH THREE TIMES DAILY NEEDED FOR PAIN active Not Available Not Available No t Available pantoprazole 40 mg tablet,delaye d release TAKE 1 TABLET BY MOUTH DAILY active Not Available Not Available No t Available triamcinolone acetonide 0.1 % lotion APPLY TOPICALLY TO THE AFFECTED AREA TWICE DAILY active Not Available Not Available No t Available albuterol sulfate HFA 90 mcg/actuation aerosol inhaler INHALE 2 PUFFS BY MOUTH EVERY 6 HOURS NEEDED FOR SHORTNESS OF BREATH OR WHEEZING active Not Available Not Available No t Available ondansetron 4 mg disintegratin g tablet DISSOLVE 1 TABLET ON THE TONGUE EVERY 8 HOURS FOR 15 DAYS NEEDED FOR NAUSEA OR VOMITING active Not Available Not Available No t Available loratadine 10 mg tablet TAKE 1 TABLET BY MOUTH DAILY NEEDED FOR ALLERGY SYMPTOMS active Not Available Not Available No t Available nitrofurantoi n monohydrate/m acrocrystals 100 mg capsule TAKE 1 CAPSULE BY MOUTH TWICE DAILY active Not Available Not Available No t Available FreeStyle Lite Strips USE DIRECTED TO TEST BLOOD SUGAR THREE TIMES DAILY active Not Available Not Available No t Available cholecalcifer ol (vitamin D3) 50 mcg (2,000 unit) capsule TAKE 1 CAPSULE BY MOUTH EVERY DAY active Not Available Not Available No t Available Farxiga 10 mg tablet TAKE 1 TABLET BY MOUTH DAILY active Not Available Not Available No t Available Repatha SureClick 140 mg/mL subcutaneous pen injector INJECT 140 MG INTO THE SKIN ONCE EVERY 14 DAYS active Not Available Not Available No t Available Nexletol 180 mg tablet TAKE 1 TABLET BY MOUTH DAILY active Not Available Not Available No t Available Vitals Date Recorded Body height Body mass index (BMI) Body weight Provider Name and Address Organization Details Last Updated DateTime 01/13/2025 157.48 cm 26.9 kg/m2 98259.08 g Ras Fall [facility] 01/13/2025 15:33:13 Date Recorded Body height Body mass index (BMI) Body weight Provider Name and Address Organization Details Last Updated DateTime 01/19/2025 157.48 cm 26.9 kg/m2 90248.08 g Ras Fall [facility] 01/19/2025 11:40:07 Social History Question Answer Notes LastModified by [employer] [employer] Details LastModified Time Tobacco Smoking Status Never Smoker Ras jenkins [facility] 01/13/2025 15:33:50 What Type Of Energy Conservation Representative Do You Use? None Information not available 01/13/2025 Do You Have Any Pets? Yes Information not available 01/13/2025 Are You Passively Exposed To Smoke? No Information not available 01/13/2025 Are There Any Smokers In Your House? No Information not available 01/13/2025 Sex: Unknown Functional Status Question Answer Note LastModified by [employer] [employer] Details LastModified Time Do you use any illicit or recreational drugs? No Information not available 01/19/2025 Do you or have you ever used any other forms of tobacco or nicotine? No Information not available 01/19/2025 What is your level of alcohol consumption? None Information not available 01/19/2025 What type of noise exposure are you exposed to? Other Information not available 01/13/2025 Mental Status None recorded. Family History Relationship Description Onset Age of this Age Resolved Age Notes LastModified by Organization Details LastModified Time Maternal Grandmother 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 69 89 [email or web address] Not available 12/19 15:24:34 Medical History Condition Response Allergies/Hayfever Y Diabetes Y Heart Problems Y Food Allergy Y Hearing Loss Y Anxiety N Dementia N Thyroid Problems N Developmental Delay N Asthma Y Glaucoma Y Anemia Y GERD/Reflux Y Headaches Y Fibromyalgia N Speech Delay N Kidney Disease Y Gynecological HistoryNo gynecological history recorded. 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 There is a target to biopsy in the office however I would need her to be off of her Plavix to do so. They will contact their marti christie doctor today and see if she can stop Plavix and plans for a biopsy on Sunday. She would be a poor candidate for resection with free flap reconstruc tion and would be a better candidate for chemoradia tion. It is difficult to say if this is an oral cavity or oropharyng eal primary and the lesion is posterior enough where I feel like chemoradia tion would be her best option. I will perform a biopsy at the next visit and plan to refer her to medical and radiation oncology for discussion of both treatment with curative intent as well as palliative treatment. Finding of neck region 418985833 R22.1 912620 Likely ipsilatera l metastases . Chronic sore throat 2754 80273 J31.2 2579 Likely due to the tumor. I discussed this will not improve until the likely cancer is treated. Oropharyng eal dysphagia 83323609 R13.12 8208 Likely due to the tumor. I discussed this will not improve until the likely cancer is treated. 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 Will refer to [facility] if this turns out to be cancer. Can resume plavix and asa tomorrow. Will call with pathology. Finding of neck region 098088158 R22.1 607717 Likely ipsilatera l metastases . Chronic sore throat 2754 52782 J31.2 2579 Likely due to the tumor. I discussed this will not improve until the likely cancer is treated. Oropharyng eal dysphagia 13126161 R13.12 8208 Likely due to the tumor. I discussed this will not improve until the likely cancer is treated. Health Concerns Section Related Observation LastModified by Organization Detai ls LastModified Time None Recorded Concern Status LastModified by Organization Details LastModified Time None Recorded Advance Directives Directive None Recorded Payers Insurance Date Sequence Insurance Name Policy Number Policy Jamil Covered Member ID Jamil Member ID Guarantor Name 01/19/2025 1 [place]ICARE [place]: [employer] Jermain Gonzales [id number] Jermain Gonzales 01/13/2025 1 [employer] [facility] [employer] [id number] 1 Jermain Armand Janet [id number] Jermain Gonzales 02/05/2025 2 UNSPECIFIED REMIT PAYOR Jermain Gonzales 01/19/2025 2 [facility] - PLAN 1 (MEDICARE SUPPLEMENT) [id number] 1 Jermain Acuna Janet [id number] Jermain Gonzales Notes Date Note Type Note Provider Name and Address Organization Details Recorded Time 01/13/2025 text/html ROS as noted in the HPI She has a history of 3 months of left sided throat pain. She has noted a neck mass. CT neck without contrast demonstrated a 5cm left BOT mass with associated ipsilateral cystic likely necrotic adenopathy. Hx of prior bilateral carotid endarterectomy. She is having pain and difficulty swallowing. Quit smoking 30 years ago. No trouble breathing. AMY CLEVELAND MD [address] [place] [address], [phone], [place] - [facility] 01/13/2025 17:24:53 01/19/2025 text/html ROS as noted in the HPI She has a history of 3 months of left sided throat pain. She has noted a neck mass. CT neck without contrast demonstrated a 5cm left BOT mass with associated ipsilateral cystic likely necrotic adenopathy. She stopped her plavix at the last visit. AMY CLEVELAND MD [address] [place] [address], [phone], [place] - [facility] 01/19/2025 11:58:29 OBGyn Episode No OBEpisode recorded.
--- OUTSIDE RECORDS SUMMARY | 2025-05-22 14:20 | XMS_ITS | Clinical Summary ---
Author Organization [address] [place] [address] [place] [phone] Phone Care Team Providers Care Protection Engineer Name Role Phone Jimmy Awan MD [...] 24 hr tabletIndication s:Coronary artery disease of [place] artery of [place] heart with stable angina pectoris ([facility] V24) TAKE 1 TABLET(30 MG) BY MOUTH [...] Problem Noted Date Diagnosed Date Angina pectoris ([facility] V24) 03/01/2022 Overview (07/15/2024): post CABG Diabetes 1.5, managed as type 2 ([facility] V24, CM S/[facility] V28) 08/01/2021 Seizure disorder ([facility] V24, [facility] V28) 07/20 Hx of CABG 06/22/2021 Assessment [...] 6:55 PM EST): Type 2 diabetes mellitus ([facility] V24, [facility] V 28) 06/21/2021 Coronary artery disease 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 Assessment & Plan (09/12/2024 6:55 PM EST): Blood pressure is favorable on current medical therapy; continue metoprolol addition to newly added isosorbide. We will attempt to get more with her recent labs from her PCPs office for review. Peripheral vascular disease ([facility] V24) 2020 Assessment & Plan (2024 12:12 PM EDT): The patient will continue to follow with vascular surgery as recommended. Assessment & Plan (09/12/2024 6:55 PM EST): The patient will continue to follow with vascular surgery as recommended. Hyperlipidemia 10/28/2020 Assessment & Plan (2024 12:12 PM EDT): The patient believes that she had a more recent lipid panel completed at [facility]; we will attempt to obtain these [...] Type Department Care Team Description 05/13/2025 Telephone [facility] - [address] [place] [phone] Alex Alba MD 04/21/2025 Telephone [facility] [address] [place] [phone] Alex Alba MD 03/19/2025 Telephone [facility] [address] [place] [address] Alex Alba MD 02/24/2025 8:45 AM EDT Consult Orthopedic Surgery - [place] [address] [facility] [address] [place] [phone] Misael Martin DPM Controlled type 2 diabetes with neuropathy ([facility] V24, [facility] V28) (Primary Dx); Amputation of fifth toe of right foot ([facility] V24); Peripheral vascular disease, unspecified ([facility] V24); Neuropathy; Arthritis of both feet; Onychomycosis [...] site debridement BYPASS GRAFT 09/10/2013 Left PROCEDURE: [place] AMPUTATION TOE METATARSOPHALANGEAL JOINT; COMMENT: 2nd toe CARDIAC CATHETERIZATION 07/02/2013 PROCEDURE: HISTORICAL CARDIAC CATH OTHER SURGICAL HISTORY 02/18/2013 PROCEDURE: [place] CORONARY ENDARTERCOMY OPEN ANY METHOD OTHER SURGICAL HISTORY 02/18/2013 PROCEDURE: KS BYPASS W/VEIN FEMORAL-FEMORAL OTHER SURGICAL HISTORY 07/31/2012 PROCEDURE: HISTORY OTHER; COMMENT: Right carotid endarterectomy with patch angioplasty reconstruction CARDIAC CATHETERIZATION 05/21/2012 PROCEDURE: HISTORICAL CARDIAC CATH CHOLECYSTECTOMY PROCEDURE: HISTORICAL CHOLECYSTECTOMY Medical History Medical History Date Comments Fall 03/01/2022 DX:Fall Hematemesis DX:Hematemesis Left orbit fracture ([facility] V24, [facility] V28) DX:Left orbit fracture (HCC) Upper GI bleed DX:Upper GI blee d Hemorrhagic shock ([facility] V 24, [facility] V28) DX:Hemorrhagic shock ([facility]) Acute kidney injury superimp osed on CKD ([facility] V24) DX:Acute kidney injury super imposed on CKD ([facility]) Hyponatremia DX:Hyponatremia Delirium DX:Delirium UTI (urinary tract infection) DX :UTI (urinary tract infection) Anemia DX:Anemia Claudication ([facility] V24) DX:Cl audication ([facility]) COPD (chronic obstructive pu lmonary disease) ([facility] V24, [facility] V28) DX:COPD (chronic o bstructive pulmonary disease) ([facility]) 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 ([facility] V 24, [facility] V28) DX: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 ([facility]) GERD (gastroesophageal reflu x disease) DX:GERD (gastroesophageal re flux disease) Hard of hearing DX:Hard of heari ng Neck strain DX:Neck strain Obesity DX:Obesity PONV (postoperative nausea a nd vomiting) DX:PONV (postoperative nause a and vomiting) Toe ulcer ([facility] V24, [facility] V28) DX:Toe ulcer ([facility]) Family History Medical History Relation Name Comments [...] AM EDT Office Visit Orthopedic Surgery - [place] [address] [facility] 250 [place] [address] Misael Martin, DPDewayne 175 [facility] 250 [place] [address] 07/13/2025 2:00 PM EST Office Visit [facility] [place] [address] [facility] 101 [place] [phone] Alex Alba MD [address] [address] Health Maintenance Due Date Last Done Comments [...] age to complete this topic Insurance MEDICARE [facility] [address] [place] [address] Care Teams Protection Engineer Relationship Specialty Start Date End Date Jimmy Awan MD [address] [place] [address] [address] [place] PCP - General 05/21/12
--- OUTSIDE RECORDS SUMMARY | 2025-05-22 14:20 | XMS_ITS | Encounter Summary ---
Author Organization [facility] Address [address] [facility] [address] [place] [address] Phone Care Team Providers Care Screen Printing Machine Loader Unloader Name Role Phone Jimmy Awan MD Primary Care Provider [phone] Reason for Referral * Consultation (Elective) - Closed Specialty Diagnoses / Procedures Referred By Contac t Referred To Contact Cardiac Rehabilitation Diagnoses S/P CABG (coronary artery bypass graft) Cheryl Butts MD [address] [place] [address] Phone: tel: fax: [address] [address] Phone: tel: Referral ID Status Reason Start Date Expiration Date Visits Re quested Visits Authorized [id number] Closed 09/02/2021 09/02/2022 1 1 Encounter Details Date Type Department Care Team (Late st Contact Info) Description 09/02/2021 Transcribe Orders [facility] Department [address] [place] [address] Cheryl Butts MD [address] [place] [address] S/P CABG (coronary artery bypass graft) (Primary [...] Associated Diagnoses Order Schedule Ambulatory referral to [facility] Cardiac Rehab Outpatient Referral Routine S/P CABG (coronary artery bypass graft) Ordered: 09/02/2021 documented as of this encounter Visit Diagnoses Diagnosis S/P CABG (coronary artery bypass graft)- Primary Postsurgical aortocoronary bypass status documented in this encounter Care Teams Screen Printing Machine Loader Unloader Relationship Specialty Start Date End Date Jimmy Awan MD [address] [place] [address] [place] [address] PCP - General Internal Medicine 07/10/21 documented as of this encounter Additional Source Comments The information contained in this document represents components of the legal health record. It is not the complete legal health record.[facility]
--- OUTSIDE RECORDS SUMMARY | 2025-05-22 14:20 | XMS_ITS | Clinical Summary ---
Author Organization [facility] Address [address] [facility] [address] [place] [address] Phone Care Team Providers Care Fish Hatchery Superintendent Name Role Phone Jimmy Awan MD Primary Care Provider [phone] Allergies Active Allergy Reactions Criticality Noted Date [...] VACCINES (1 of 2) 1992 OSTEOPOROSIS SCREENING INITIAL (ONE-TIME) 12/30/2007 RSV VACCINE (1 - 1-dose 75+ series) 2017 DEPRESSION SCREENING 09/21/2022 09/21/2021 INFLUENZA VACCINE (#1) 2025 3, 07/25/2021, 07/06/2019, Additional history exists COVID-19 VACCINE ( season) 2025 08/29/2021, 10/21/2020, 09/29/2020 Adult Td,Tdap Booster 08/18/2026 [...] MEDICARE SUPPLEMENT MEDICARE PART A & B [facility] MEDICARE SUPPLEMENT MEDICARE PART A & B MEDICARE SUPPLEMENT MEDICARE PART A & B Member Subscriber Plan / Payer ( fective 2012-Present) Name:Jermain Gonzales Member ID:[id number] Relation to Subscriber:Self Name:Jermain Gonzales Subscriber ID:[id number] Payer ID:[id number] Group ID:Not on file Type:Medicare Address: [employer] [address] MEDICARE SUPPLEMENT MEDICARE PART A & B MEDICARE SUPPLEMENT MEDICARE PART A & [place] [address] [address] [place] [address] MEDICARE SUPPLEMENT MEDICARE PART A & B [facility] MEDICARE SUPPLEMENT MEDICARE PART A & B Member Subscriber Plan / Payer ( fective 2012-Present) Name:Jermain Gonzales Member ID:[id number] Relation to Subscriber:Self Name:Jermain Gonzales Subscriber ID:[id number] Payer ID:[id number] Group ID:Not on file Type:Medicare Address: [employer] [address] MEDICARE SUPPLEMENT MEDICARE PART A & B MEDICARE SUPPLEMENT Care Teams Fish Hatchery Superintendent Relationship Specialty Start Date End Date Jimmy Awan MD [address] [place] [address] [place] [address] PCP - General Internal Medicine 07/10/21 Additional Source Comments The information contained in this document represents components of the legal health record. It is not the complete legal health record.[facility]
== END 2025-05-22 15:07 | disposition home or self-care (01) ==
LOC: HO.HMCH 14:13
PROVIDERS: PCP Internal Medicine; Visit Provider Internal Medicine
DX: I12.9 Hypertensive chronic kidney disease with stage 1 through stage 4 chronic kidney disease, or unspecified chronic kidney disease (principal); C01 Malignant neoplasm of base of tongue; E11.42 Type 2 diabetes mellitus with diabetic polyneuropathy; N18.32 Chronic kidney disease, stage 3b; R56.9 Unspecified convulsions; J18.9 Pneumonia, unspecified organism; I25.10 Atherosclerotic heart disease of native coronary artery without angina pectoris; I65.22 Occlusion and stenosis of left carotid artery; E78.00 Pure hypercholesterolemia, unspecified; I73.9 Peripheral vascular disease, unspecified; D64.9 Anemia, unspecified; J45.40 Moderate persistent asthma, uncomplicated

== ENCOUNTER → 2025-05-22 14:12 | Outpatient (BNVA) | payer MEDICARE, OTHER, SELFPAY | PROVIDERS: PCP Internal Medicine; Visit Provider Internal Medicine | DX: C01 Malignant neoplasm of base of tongue (principal); I25.10 Atherosclerotic heart disease of native coronary artery without angina pectoris; J18.9 Pneumonia, unspecified organism; I65.22 Occlusion and stenosis of left carotid artery; E78.00 Pure hypercholesterolemia, unspecified; I12.9 Hypertensive chronic kidney disease with stage 1 through stage 4 chronic kidney disease, or unspecified chronic kidney disease; E11.22 Type 2 diabetes mellitus with diabetic chronic kidney disease; E11.51 Type 2 diabetes mellitus with diabetic peripheral angiopathy without gangrene; E11.42 Type 2 diabetes mellitus with diabetic polyneuropathy; N18.32 Chronic kidney disease, stage 3b; D63.1 Anemia in chronic kidney disease; J45.40 Moderate persistent asthma, uncomplicated; J30.9 Allergic rhinitis, unspecified; E55.9 Vitamin D deficiency, unspecified; R56.9 Unspecified convulsions; Z96.89 Presence of other specified functional implants | CPT/HCPCS: 99212 ==

== ENCOUNTER 2025-05-27 10:53 | Outpatient (AMB) | payer MEDICARE, OTHER, SELFPAY ==
[2025-05-27 10:55] VITALS: BP 102/42; PULSE 59; O2SAT 97; BMI 25.0
--- NOTE | 2025-05-27 10:55 | MHC.OFFVIS ---
Vital Signs 05/27/25 10:55 Height 5 ft 2 in Weight 136 lb 10.986 oz BMI 25.0 BP 102/42 L Blood Pressure Location Lt brachial Position Sitting Pulse 59 Pulse Source Pulse Oximeter Pulse Oximetry (%) 97 Oxygen Delivery Method Room Air Intake Visit Reasons: Pulmonary Nodule Agronomy Specialist Required: No Accompanied by: Daughter Allergies evolocumab (From Repatha SureClick) Allergy (Intermediate, Verified 05/27/25 10:59) Hives doxycycline Allergy (Mild, Verified 05/27/25 10:59) Vomiting levetiracetam (From Keppra) Allergy (Mild, Verified 05/27/25 10:59) Vomiting amoxicillin Allergy (Unknown, Verified 05/27/25 10:59) rash Penicillins Allergy (Unknown, Verified 05/27/25 10:59) rash prednisone Allergy (Unknown, Verified 05/27/25 10:59) rash ceftriaxone (From Rocephin) Allergy (Verified 05/27/25 10:59) Rash milk Allergy (Verified 05/27/25 10:59) Unknown omeprazole Adverse Reaction (Unknown, Verified 05/27/25 10:59) worsening heartburn ranitidine Adverse Reaction (Unknown, Verified 05/27/25 10:59) worsening heartburn, abdominal pain (ONLY to generic) HPI Comments Details: The patient is an 84 year woman with a history of former smoking presenting with a pulmonary nodule. The patient apparently was evaluated for a mass in her tongue and also in the neck area. She underwent a CT scan of the neck which was personally by me demonstrating a masslike density involving the tongue and also the soft tissue of the neck. 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 In the meantime the lung windows did garbage pick up man a left upper lobe nodular density on the CT scan of the neck. I did review it myself. Appear to be subsolid in nature. She did have a CT scan back in 2022 of her cervical spine it did garbage pick up man a nodules well although difficult to compare because the different format. The patient has not had a formal CT scan of the chest. I will request 1 at this time. She denies any shortness of breath. She does have a cough. Will go ahead and follow-up after the CAT scan. In the meantime she is going to follow-up with ENT and also radiation oncology for treatment of the squamous cell carcinoma of the head and neck. 05/27/2025 the patient is here for pulmonary follow-up visit. She is not completing the radiation to her head and neck cancer. She did have issues with nausea and vomiting will have to be hospitalized briefly. Now she is home. She is taking just by the feeding tube and she does take some foods just to see if she can get used to taking things by mouth. She did have a CT scan of the chest back in March which I personally reviewed with the patient. She has some underlying pulmonary nodules bilaterally but some once some on the right of concern. Ultimately she was admitted to the hospital at [facility] in April and she did have a CT angiogram. It was very limited because of motion artifact. I could not appreciate the nodules although it is very limited. She has another area of nodular density on the right hemithorax. Therefore will go ahead and start her on some antibiotics to treat her for infectious process and will read the CAT scan in the couple months. The patient will follow-up after her CAT scan. She has not issues she can always call for further recommendations. [facility] Medical History Dysphagia Squamous cell carcinoma of base of tongue Head and neck cancer GABRIELA (obstructive sleep apnea) Pulmonary nodule Chronic kidney disease, stage 4 (severe) Chronic kidney disease, stage III (moderate) Atrophic vaginitis Orbital fracture Upper GI bleeding Hearing impairment Seizure Recurrent urinary tract infection Overweight (BMI 25.0-29.9) Vitamin D deficiency Allergic rhinitis Meralgia paresthetica of right side Anemia GERD without esophagitis Asthma Hyperkalemia Diabetic polyneuropathy associated with type 2 diabetes mellitus Peripheral vascular disease Pure hypercholesterolemia Benign essential hypertension Carotid atherosclerosis Coronary artery disease (~06/09/21) Type 2 diabetes mellitus with diabetic polyneuropathy Surgical History Hx of colonoscopy History of endoscopy S/P CABG x 4 (~06/09/21) History of cardiac catheterization (~12/2023) History of left-sided carotid endarterectomy S/P LASIK surgery History of right-sided carotid endarterectomy History of laparoscopic cholecystectomy Family History Father CVD (cardiovascular disease) Mother Stroke Brother CVD (cardiovascular disease) Esophageal cancer Social History Household Members: Children Housing: House Are you a primary director of medicare to a significant other at home: No Do you presently have visiting nurse or other home services: No Alcohol intake: never Comment: cardiac Patient Tobacco Use Status: Former Tobacco user Tobacco use type: Cigarette e-Cigarette/Vaping Use: Never Used Second Hand Smoke Exposure: No Advance Directives Date on File: 01/11/22 service: No Current occupational status: retired 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 Cognitive needs: No Hearing needs: No Vision needs: No Review of Systems Const Reports fatigue, Denies fever(s), Denies headache(s) and Reports weight loss ENT Details: (+) recurrent pain over the left side of the neck and over the left jaw area Reports dysphagia, Denies dizziness, Denies ear discharge, Reports otalgia (in the left ear, on and off - see HPI), Denies headache(s), Reports hearing loss, Reports neck pain (over the left side of the neck), Reports odynophagia and Denies sore throat Card Denies chest pain, Denies palpitations and Reports dyspnea on exertion (mild) Resp Denies chest congestion, Denies cough and Reports dyspnea on exertion (mild) GI Denies abdominal pain, Denies constipation, Reports dysphagia, Denies heartburn, Denies diarrhea, Denies nausea, Reports odynophagia and Denies vomiting Denies difficulty voiding, Denies nocturia and Denies dysuria Musc Denies back pain and Reports neck pain (over the left side of the neck) Skin/Breast Denies rash Neuro Denies dizziness and Denies headache(s) Endo Reports fatigue and Denies palpitations Physical Exam Vital Signs: Last Vital Signs Pulse 59 05/27/25 10:55 BP 102/42 L 05/27/25 10:55 Pulse Ox 97 05/27/25 10:55 Oxygen Delivery Method Room Air 05/27/25 10:55 BMI result Body Mass Index 25.0 Last Vital Signs Temp 96.8 F 03/16/22 07:18 Pulse 65 03/16/22 07:18 Resp 17 03/16/22 07:18 BP 158/67 H 03/16/22 07:18 Pulse Ox 95 03/16/22 07:18 O2 Del Method 03/16/22 07:18 BMI result Body Mass Index 25.6 Const General: comfortable and no acute distress Orientation/consciousness: patient oriented x3 HEENT Other: Unremarkable Head: Yes normal to inspection Neck Neck: Yes normal visual inspection Chest Chest palpation & inspection: normal inspection of the chest Resp Effort & Inspection: normal respiratory effort and prolonged expiratory phase Auscultation: diminished lung sounds Cardio Palpation: normal PMI Heart sounds: S1 normal heart sound present, S2 normal heart sound present, no gallops, no murmurs and no rubs GI Inspection: Yes G-tube present Palpation (GI): Soft to palpation Back/Spine/Pelvis Other: unremarkable Skin General skin exam: no rashes or lesions noted Neuro General: patient oriented x3 Extrem General: Yes normal to inspection Psych Mental Status: mental status grossly normal Assessment & Plan Assessment & Plan (1) Pulmonary nodule: Code(s): R91.1 - Solitary pulmonary nodule Category: Medical (2) Asthma: Code(s): J45.909 - Unspecified asthma, uncomplicated Category: Medical Qualifiers: Asthma complication type: uncomplicated Asthma persistence: persistent Asthma severity: moderate Qualified Code(s): J45.40 - Moderate persistent asthma, uncomplicated (3) Head and neck cancer: Code(s): C76.0 - Malignant neoplasm of head, face and neck Category: Medical Plan F/U with ENT CT chest in 2 months start Bactrim ANDRA as needed F/U 3-4 months Orders: Orders CT chest wo IV con 07/20/25 R91.1 - Solitary pulmonary nodule Medications: New sulfamethoxazole-trimethoprim 200-40 mg/5 mL 20 mL feeding tube BID 560 mL 0RF 14 days Coding Level of Care Code Est Pt Level 4 (50201) Complex EM visit Add On G2211 Diagnoses Pulmonary nodule R91.1 Moderate persistent asthma without complication J45.40 Asthma complication type: uncomplicated Asthma persistence: persistent Asthma severity: moderate Head and neck cancer C76.0 Time Spent (min) 17
== END 2025-05-27 11:31 | disposition home or self-care (01) ==
LOC: HO.HPS 10:53
PROVIDERS: PCP Internal Medicine; Visit Provider Hospitalist
DX: R91.1 Solitary pulmonary nodule (principal); J45.40 Moderate persistent asthma, uncomplicated; C76.0 Malignant neoplasm of head, face and neck
CPT/HCPCS: 99214; G2211

== ENCOUNTER → 2025-05-27 10:53 | Outpatient (BNVA) | payer MEDICARE, OTHER, SELFPAY | PROVIDERS: PCP Internal Medicine; Visit Provider Hospitalist | DX: R91.1 Solitary pulmonary nodule (principal); J45.40 Moderate persistent asthma, uncomplicated; C76.0 Malignant neoplasm of head, face and neck; Z87.891 Personal history of nicotine dependence | CPT/HCPCS: 99212 ==

== ENCOUNTER 2025-06-30 07:07 | Outpatient (REF) | payer MEDICARE, OTHER, SELFPAY ==
--- OUTSIDE RECORDS SUMMARY | 2025-06-30 07:11 | XMS_ITS | Encounter Summary ---
Author Organization [facility] Address [address] [facility] [address] [place] [address] Phone Care Team Providers Care Feeder/Folder Name Role Phone Jimmy Awan MD Primary Care Provider [phone] Reason for Referral * Consultation (Elective) - Closed Specialty Diagnoses / Procedures Referred By Contac t Referred To Contact Cardiac Rehabilitation Diagnoses S/P CABG (coronary artery bypass graft) Cheryl Butts MD [address] [place] [address] Phone: tel: fax: [address] [address] Phone: tel: Referral ID Status Reason Start Date Expiration Date Visits Re quested Visits Authorized [id number] Closed 09/02/2021 09/02/2022 1 1 Encounter Details Date Type Department Care Team (Late st Contact Info) Description 09/02/2021 Transcribe Orders [facility] Department [address] [place] [address] Cheryl Butts MD [address] [place] [phone] S/P CABG (coronary artery bypass graft) (Primary [...] Associated Diagnoses Order Schedule Ambulatory referral to [facility] Cardiac Rehab Outpatient Referral Routine S/P CABG (coronary artery bypass graft) Ordered: 09/02/2021 documented as of this encounter Visit Diagnoses Diagnosis S/P CABG (coronary artery bypass graft)- Primary Postsurgical aortocoronary bypass status documented in this encounter Care Teams Feeder/Folder Relationship Specialty Start Date End Date Jimmy Awan MD [address] [place] [address] [place] [address] PCP - General Internal Medicine 07/10/21 documented as of this encounter Additional Source Comments The information contained in this document represents components of the legal health record. It is not the complete legal health record.[facility]
--- OUTSIDE RECORDS SUMMARY | 2025-06-30 07:11 | XMS_ITS | Data Portability ---
Author Organization [place] - [facility], Allergy Address [address] [address] Care Team Providers Care Assembler Camper Name Role Phone ABEL, GAURAV Primary Care Provider Assessment No assessment recorded. Plan of Treatment [...] PET/CT Imagin g Access ion Number : [id number] Patien t Name: Jermain Gonzales Shawna l Record Number : [id number] Date of : 1940 Date of Exam: 2024 Referr ing Physic erica: Leah ta, Amy [facility] [place] [address] [facility] [address] [place] [address] Exam: PT Skull Base to Mid Thigh CPT 83833 Room Descri ption: Brooks SiemBi o Pt4 PT Skull Base to Mid Thigh CPT 14706 Histor y: Initia l stagin g of invasi ve squamo us cell carcin florencio of the left insulation cupola operator ior aspect of the tongue Compar judith: [...] inject ion was 97 mg/dL. Findin gs: Network Analyst al Refere nce Values : Ascend ing aortic blood pool: SUV mean 2.1, SUV max 2.7. Right hepati c lobe: SUV mean 2.2, SUV max 3.4. Head/n josselyn: Irregu lar shaped lesion noted at the left insulation cupola operator ior aspect of the tongue measur ing [...] id malign jason. Status post cholec ystect jnug. Coloni c divert iculos is withou t [...] avid irregu lar shaped lesion at the insulation cupola operator ior left aspect of the tongue is [...] ly Signed By: Jesus Chavez MD [facility]ppsteiner [facility] ([facility]) [address] [place], [address], 02/23/2025 16:55:00 Result Notes Documentation Provider Name and Address Organization Details Recorded Time Pet-ct, Skull Base To Mid-thigh Scan : [facility] PET/CT Imaging Accession Number: [id number] Patient Name: Jermain Gonzales Date of : 1940 Date of Exam: 02-08-2025 Referring Physician: Amy Cleveland [facility] of [address] [address] Exam: PT Skull Base to Mid Thigh CPT 06073 Room Description: [facility] Pt4 PT Skull Base to Mid Thigh CPT 74702 History: Initial staging of invasive squamous cell [...] findings. Electronically Signed By: Jesus CLEVELAND MD [address] [place] [address], [address], [place] - [facility] 02/23/2025 16:55:00 Problems Name Problem SNOMED Code Status Onset Date Resolution Date Notes Provider Name and Address Organization Details Recorded Time Neoplasm of uncertain behavior of base of tongue 19167089 Active 2024 AMY Chacko MD [address] [place] [address], [phone], [place] - [facility] 15:39:25 Finding of neck region 318623841 Active 2024 AMY Chacko MD [address] [place] [address] [place], [address], [facility] - [facility] [place] 15:39:33 Chronic sore throat 591014185 Active 2024 AMY Chacko MD [address] [address], [place], [address], [facility] - [facility] [place] 15:39:42 Oropharyngeal dysphagia 62341546 Active 2024 AMY Chacko MD [address] [address], [place], [address], [facility] - [facility] [place] 15:39:47 Malignant neoplasm of base of tongue 802812389 Active 2024 AMY Chacko MD [address] [address], [place], [address], [facility] - [facility] [place] 11:43:43 Problem Notes None recorded. Procedures Surgical History Date Name Laterality Status Provider Name and Address Organization Details Recorded Time Biopsy Anterior Tongue completed AMY CLEVELAND MD [address], [address], [facility] 01/19/2025 11:57:05 FFL_RE completed AMY CLEVELAND MD [address] [place] [address], [address], [facility] 01/13/2025 15:55:18 Imaging Results None recorded. Procedure [...] Updated DateTime 01/13/2025 157.48 cm 26.9 kg/m2 14772.08 g Ras Fall [facility] 01/13/2025 15:33:13 Date Recorded Body height Body mass index (BMI) Body weight Provider Name and Address Organization Details Last Updated DateTime 01/19/2025 157.48 cm 26.9 kg/m2 31316.08 g Ras Fall [facility] 01/19/2025 11:40:07 Social History Question Answer Notes LastModified by [employer] Details LastModified Time Tobacco Smoking Status Never Smoker Ras jenkins [facility] 01/13/2025 15:33:50 What Type Of Rating Specialist Do You Use? None Information not available 01/13/2025 Do You Have Any Pets? Yes Information not available 01/13/2025 Are You Passively Exposed To Smoke? No Information not available 01/13/2025 Are There Any Smokers In Your House? No Information not available 01/13/2025 Sex: Unknown Functional Status Question Answer Note LastModified by [employer] Details LastModified Time Do you use any [...] available 12/19 15:24:34 Medical History Condition Response Diabetes Y Allergies/Hayfever Y Heart Problems Y Food Allergy Y Hearing Loss Y Anxiety N Thyroid Problems N Dementia N Glaucoma Y Developmental Delay N Asthma Y Anemia Y GERD/Reflux Y Headaches Y Fibromyalgia N Speech Delay N Kidney Disease Y Gynecological HistoryNo gynecological history recorded. Obstetrics History GPAL:G 0 P 0 0 0 0 Past Encounters Encounter ID Performer Location Encounter Start Date Encounter Closed Date Diagnosis/Indication Diagnosis SNOMED-CT Code Diagnosis ICD10 Code Diagnosis IMO Codes Diagnosis Note [id number] AMY CLEVELAND MD [facility] 100 [place] [address] 01/13/2025 15:09:42 01/13/2025 16:01:39 Neoplasm of uncertain behavior of base of tongue 68003086 D37.02 116010 She likely has an advanced stage oral [...] as palliative treatment. 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 Chronic sore throat 2754 43711 J31.2 2579 Likely due to the tumor. I discussed this will not improve until the likely cancer is treated. Oropharyng eal dysphagia 34410252 R13.12 8208 Likely due to the tumor. I discussed this will not improve until the likely cancer is treated. [id number] AMY CLEVELAND MD [facility] [address] [place] [address] 01/19/2025 11:14:46 01/19/2025 12:58:15 Neoplasm of uncertain behavior of base of tongue 19654240 D37.02 948710 tongue biopsy performed. Will refer to [facility] if this turns out to be cancer. Can resume plavix and asa tomorrow. Will call with pathology. 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 Chronic sore throat 2754 43043 J31.2 2579 Likely due to the tumor. I discussed this will not improve until the likely cancer is treated. Oropharyng eal dysphagia 37065723 R13.12 8208 Likely due to the tumor. I discussed this will not improve until the likely cancer is treated. Health Concerns Section Related Observation LastModified by Organization Detai ls LastModified Time None Recorded Concern Status LastModified by Organization Details LastModified Time None Recorded Advance Directives Directive None Recorded Payers Insurance Date Sequence Insurance Name Policy Number Policy Jaiml Covered Member ID Jamil Member ID Guarantor Name 01/19/2025 1 [place] [employer] Jermain Gonzales [id number] Jermain Gonzales 01/13/2025 1 [email or web address] [facility] [employer] [id number] 1 Jermain Armand Janet [id number] Jermain Gonzales 02/05/2025 2 UNSPECIFIED REMIT PAYOR Jermain Gonzales 01/19/2025 2 [facility] - PLAN 1 (MEDICARE SUPPLEMENT) [id number] 1 Jermain Acuna Janet [id number] Jermain Gonzales Notes Date Note Type Note [...] ago. No trouble breathing. AMY CLEVELAND MD [address] [place] [address], [address], [place] - [facility] 01/13/2025 17:24:53 01/19/2025 text/html ROS as noted in the HPI She has a history of 3 months of left sided throat pain. She has noted a neck mass. CT neck without contrast demonstrated a 5cm left BOT mass with associated ipsilateral cystic likely necrotic adenopathy. She stopped her plavix at the last visit. AMY CLEVELAND MD [address] [place] [address], [address], [place] [facility] 01/19/2025 11:58:29 OBGyn Episode No OBEpisode recorded.
--- OUTSIDE RECORDS SUMMARY | 2025-06-30 07:11 | XMS_ITS | Clinical Summary ---
Author Organization [facility] Address [address] [facility] [address] [place] [address] Phone Care Team Providers Care Transit Operator Name Role Phone Jimmy Awan MD Primary Care Provider [phone] Allergies Active Allergy Reactions Criticality Noted Date [...] MEDICARE SUPPLEMENT MEDICARE PART A & B [facility] MEDICARE SUPPLEMENT MEDICARE PART A & B MEDICARE SUPPLEMENT MEDICARE PART A & B Member Subscriber Plan / Payer ( fective 2012-Present) Name:Jermain Gonzales Member ID:[id number] Relation to Subscriber:Self Name:Jermain Gonzales Subscriber ID:[id number] Payer ID:[id number] Group ID:Not on file Type:Medicare Address: [employer] [address] MEDICARE SUPPLEMENT MEDICARE PART A & B MEDICARE SUPPLEMENT MEDICARE PART A & [place] [address] [place] [address] MEDICARE SUPPLEMENT MEDICARE PART A & B [facility] MEDICARE SUPPLEMENT MEDICARE PART A & B Member Subscriber Plan / Payer ( fective 2012-Present) Name:Jermain Gonzales Member ID:[id number] Relation to Subscriber:Self Name:Jermain Gonzales Subscriber ID:[id number] Payer ID:[id number] Group ID:Not on file Type:Medicare Address: [employer] [address] MEDICARE SUPPLEMENT MEDICARE PART A & B MEDICARE SUPPLEMENT Care Teams Transit Operator Relationship Specialty Start Date End Date Jimmy Awan MD [address] [place] [address] [place] [address] PCP - General Internal Medicine 07/10/21 Additional Source Comments The information contained in this document represents components of the legal health record. It is not the complete legal health record.[facility]
--- OUTSIDE RECORDS SUMMARY | 2025-06-30 07:11 | XMS_ITS | Clinical Summary ---
Author Organization [address] [place] [address] [place] [address] Phone Care Team Providers Care Java Developer Analyst Name Role Phone Jimmy Awan MD Primary [...] 24 hr tabletIndication s:Coronary artery disease of [place] artery of [place] heart with stable angina pectoris ([facility] V24) TAKE 1 TABLET(30 MG) [...] Problem Noted Date Diagnosed Date Angina pectoris ([facility] V24) 03/01/2022 Overview (07/15/2024): post CABG Diabetes 1.5, managed as type 2 ([facility] V24, CM S/[facility] V28) 08/01/2021 Seizure disorder (CMS/[facility] V24, CMS/[facility] V28) 07/20 Hx of CABG [...] 6:55 PM EST): Type 2 diabetes mellitus ([facility] V24, [facility] V 28) 06/21/2021 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 Assessment & Plan (09/12/2024 6:55 PM EST): Blood pressure is favorable on current medical therapy; continue metoprolol addition to newly added isosorbide. We will attempt to get more with her recent labs from her PCPs office for review. Peripheral vascular disease (CMS/[facility] V24) 2020 Assessment & Plan (2024 12:12 PM EDT): The patient will continue to follow with vascular surgery as recommended. Assessment & Plan (09/12/2024 6:55 PM EST): The patient will continue to follow with vascular surgery as recommended. Hyperlipidemia 10/28/2020 Assessment & Plan (2024 12:12 PM EDT): The patient believes that she had a more recent lipid panel completed at [facility]; we will attempt to obtain these for [...] Encounters Date Type Department Care Team Description 05/28/2025 8:45 AM EDT Office Visit Orthopedic Surgery - [address] [place] [phone] Misael Martin DPM Controlled type 2 diabetes with neuropathy ([facility] V24, [facility] V28) (Primary Dx); Amputation of fifth toe of right foot ([facility] V24); Peripheral vascular disease, unspecified ([facility] V24); Neuropathy; Arthritis of both feet; Onychomycosis 05/13/2025 Telephone [facility] [address] [facility] [address] [place] [address] Alex Alba MD 04/21/2025 Telephone [facility] - [facility] [address] [facility] [address] [place] [address] Alex Alba MD from Last 3 Months Surgical History Surgery [...] site debridement BYPASS GRAFT 09/10/2013 Left PROCEDURE: MS AMPUTATION TOE METATARSOPHALANGEAL JOINT; COMMENT: 2nd toe CARDIAC CATHETERIZATION 07/02/2013 PROCEDURE: HISTORICAL CARDIAC CATH OTHER SURGICAL HISTORY 02/18/2013 PROCEDURE: MS CORONARY ENDARTERCOMY OPEN ANY METHOD OTHER SURGICAL HISTORY 02/18/2013 PROCEDURE: MS BYPASS W/VEIN FEMORAL-FEMORAL OTHER SURGICAL HISTORY 07/31/2012 PROCEDURE: HISTORY OTHER; COMMENT: Right carotid endarterectomy with patch angioplasty reconstruction CARDIAC CATHETERIZATION 05/21/2012 PROCEDURE: HISTORICAL CARDIAC CATH CHOLECYSTECTOMY PROCEDURE: HISTORICAL CHOLECYSTECTOMY Medical History Medical History Date Comments Fall 03/01/2022 DX:Fall Hematemesis DX:Hematemesis Left orbit fracture (CMS/HCC V24, [facility] V28) DX:Left orbit fracture (HCC) Upper GI bleed DX:Upper GI blee d Hemorrhagic shock ([facility] V 24, [facility] V28) DX:Hemorrhagic shock (HCC) Acute kidney injury superimp osed on CKD ([facility] V24) DX:Acute kidney injury super imposed on CKD ([facility]) Hyponatremia DX:Hyponatremia Delirium DX:Delirium UTI (urinary tract infection) DX :UTI (urinary tract infection) Anemia DX:Anemia Claudication ([facility] V24) DX:Cl audication ([facility]) COPD (chronic obstructive pu lmonary disease) ([facility] V24, [facility] V28) DX:COPD (chronic o bstructive pulmonary disease) ([facility]) 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 ([facility] V 24, [facility] V28) DX: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 ([facility]) GERD (gastroesophageal reflu x disease) DX:GERD (gastroesophageal re flux disease) Hard of hearing DX:Hard of heari ng Neck strain DX:Neck strain Obesity DX:Obesity PONV (postoperative nausea a nd vomiting) DX:PONV (postoperative nause a and vomiting) Toe ulcer ([facility] V24, [facility] V28) DX:Toe ulcer ([facility]) Family History Medical History Relation [...] Care Team (Late st Contact Info) Description 07/13/2025 2:00 PM EST Office Visit [facility] [address] [facility] [address] [place] [address] Alex Alba MD [address] [place] [address] [address] [place] [phone] 08/10/2025 10:00 AM EST Office Visit Orthopedic Surgery - [place] [address] [facility] [address] [place] [phone] Misael Martin, DPDewayne 175 [facility] [address] [place] [address] Health Maintenance Due Date Last Done Comments [...] complete this topic Insurance MEDICARE [facility] [address] [place] [address] Care Teams Java Developer Analyst Relationship Specialty Start Date End Date Jimmy Awan MD [address] [facility] [address] ADRI Ugarte PCP - General 05/21/12
--- OUTSIDE RECORDS SUMMARY | 2025-06-30 07:11 | XMS_ITS | Data Portability ---
Author Organization [facility] [employer] Address [address] [facility] [place] [address] Care Team Providers Care Finger Buff Sewer Name Role Phone GAURAV ROMAN Referring Provider [phone] LILIANA GREEN OTHER Assessment Encounter Date Assessment [...] ast No observ ation record ed. [email or web address] [facility] ([facility]) [address] [place], [address], 10/17/2021 14:29:22 Result Notes None recorded. Procedures Surgical History Date Name Laterality Status Provider Name and Address Organization Details Recorded Time 10/13/2021 DATA REVIEW completed Antony Hernandez MD [address] [place], [place] [address], [address], [facility] Neurology [facility] 10/13/2021 17:40:07 Imaging Results None recorded. Procedure Notes None recorded. Medical Equipment None Reported. Allergies Allergen ID Allergen Name Allergen Category Reaction Reaction Severity Criticality Documentation Date Start Date Code Code System Note Provider Name and Address Organization Details Recorded Time 1213 Product containin g penicilli n (product) medicatio n Not available Not available Not available 10/13/2021 92634 8001 SNOMED [place] [facility] 2 11:19:23 1214 doxycycli ne Not available Not available Not available Not available 10/13/2021 3640 [facility] on [facility] 2 11:22:18 1215 Keppra medicatio n Not available Not available Not available 10/13/2021 87153 7 [facility] on [facility] 2 11:22:28 Medications [...] Updated DateTime 10/13/2021 157.48 cm 27.1 kg/m2 65176.67 g 12 /min Ciera Dumont [facility] Neurology [facility] 10/13/2021 11:18:56 Social History Question Answer Notes LastModified by Organizat ion Details LastModified Time Tobacco Smoking Status Former Smoker Ciera jenkins [facility] Neurology [facility] 10/13/2021 11:24:52 What Is Your Level Of Caffeine Consumption? Occasional Information not available 10/13/2021 What Is The Highest Grade Or Level Of School You Have Completed Or The Highest Degree You Have Received? 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 2386446 G40.209 Generalize d-onset seizures 0486192 G40.309 Acute cere brovascular insufficiency 41456842 I67.81 Health Concerns Section Related Observation LastModified by Organization Detai ls LastModified Time None Recorded Concern Status LastModified by Organization Details LastModified Time None Recorded Advance Directives Directive None Recorded Payers Insurance Date Sequence Insurance Name Policy Number Policy Jamil Covered Member ID Jamil Member ID Guarantor Name 10/17/2021 1 [place] [employer] Jermain Fowler Janet [id number] Jermain Gonzales 10/12/2021 2 [employer]UPREE [id number] Jermain Gonzales [id number] Jermain Gonzales Notes Date Note Type Note [...] causing suspicion for seizure. Antony Hernandez MD [address] [place] [address] [place], [address], [facility] Neurology [facility] 10/13/2021 17:43:39 OBGyn Episode No OBEpisode recorded.
[2025-06-30 07:25] LABS: MANUAL DIFF FLAG NO
[2025-06-30 07:45] LABS: Hematocrit 35.4 % (37.0-47.0); Hemoglobin 11.5 g/dl (12.0-16.0); Imm Gran Abs Auto 0.01 X10*3/uL (0.00-0.03); Imm Gran Pct Auto 0.2 % (0.0-0.4); Lymphocytes Absolute Auto 0.3 X10*3/uL (1.2-4.9); Mean Corpuscular HGB Conc 32.5 g/dl (31.0-35.0); Mean Corpuscular Hemoglobin 28.3 pg (27.0-33.0); Mean Corpuscular Volume 87.2 fL (80.0-98.0); NRBC Abs Auto 0.000 X10*3/uL (0.0-0.012); NRBC Pct Auto 0.0 /100WBC (0.0-0.2); Platelet Count 278 X10*3/uL (160-400); Red Blood Count 4.06 X10*6/uL (4.20-5.50); White Blood Count 4.6 X10*3/uL (4.8-10.8)
[2025-06-30 08:12] LABS: Appearance Urine Clear; Glucose Urine UA Negative (Negative); PH 7.0 (5.0-9.0); Specific Gravity - Urine 1.015 (1.005-1.025); UMIC TRIGGER UACC YES
[2025-06-30 08:18] LABS: Alanine Aminotransferase 21 U/L (0-31); Albumin Level 3.7 g/dL (3.5-5.0); Alkaline Phosphatase 83 U/L (39-117); Anion Gap 12 (12-20); Aspartate Amino Transferase 34 U/L (5-31); Blood Urea Nitrogen 27 mg/dL (9-16); Calcium 9.5 mg/dL (8.4-10.2); Carbon Dioxide 28 mmol/L (22-29); Chloride 103 mmol/L (96-108); Cholesterol 127 mg/dL (<200); Estimated Glomerular Filt Rate 38; HDL Cholesterol 43 mg/dL (>40); Potassium 4.4 mmol/L (3.3-5.1); Sodium 139 mmol/L (135-145); Total Protein 6.2 g/dL (6.5-8.0); Triglycerides 77 mg/dL (<150)
[2025-06-30 08:45] LABS: Folate 14.7 ng/mL (> or = 4.0); Vitamin B12 1383 pg/mL (200-900)
[2025-06-30 08:47] LABS: Microalbum/Creatinine Ratio Ur 12.7 ug/mg cr (<30)
== END 2025-06-30 07:08 | disposition home or self-care (01) ==
LOC: HO.LAB 07:07
PROVIDERS: Visit Provider Internal Medicine
DX: E11.9 Type 2 diabetes mellitus without complications (principal); D64.9 Anemia, unspecified; E78.00 Pure hypercholesterolemia, unspecified; E53.8 Deficiency of other specified B group vitamins; E55.9 Vitamin D deficiency, unspecified
CPT/HCPCS: 36415; 80053; 80061; 81001; 81003; 82043; 82306; 82570; 82607; 82746; 83036; 84443; 85025

== ENCOUNTER 2025-07-03 14:14 | Outpatient (AMB) | payer MEDICARE, OTHER, SELFPAY ==
[2025-07-03 14:24] VITALS: BP 110/64; BMI 25.0
--- NOTE | 2025-07-03 14:24 | MHC.PC.OV ---
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: No Accompanied by: Self / Same As Patient Allergies evolocumab (From Repatha SureClick) Allergy (Intermediate, Verified 07/03/25 15:03) Hives doxycycline Allergy (Mild, Verified 07/03/25 15:03) Vomiting levetiracetam (From Keppra) Allergy (Mild, Verified 07/03/25 15:03) Vomiting amoxicillin Allergy (Unknown, Verified 07/03/25 15:03) rash Penicillins Allergy (Unknown, Verified 07/03/25 15:03) rash prednisone Allergy (Unknown, Verified 07/03/25 15:03) rash ceftriaxone (From Rocephin) Allergy (Verified 07/03/25 15:03) Rash milk Allergy (Verified 07/03/25 15:03) Unknown omeprazole Adverse Reaction (Unknown, Verified 07/03/25 15:03) worsening heartburn ranitidine Adverse Reaction (Unknown, Verified 07/03/25 15:03) worsening heartburn, abdominal pain (ONLY to generic) Medication List - Last Reconciled 07/03/25 by Jimmy Awan MD albuterol sulfate 90 mcg/actuation 2 puffs inhalation Q6H PRN 30 days albuterol sulfate 2.5 mg (3 mL) inhalation QID PRN alcohol swabs (Alcohol Wipes) 1 pad topical QID aspirin 81 mg PO DAILY atorvastatin 80 mg PO BEDTIME blood sugar diagnostic (FreeStyle Lite Strips) As directed- to test blood sugar TID blood-glucose sensor (FreeStyle Anastasiia 2 Plus Sensor device) As directed clindamycin HCl (Cleocin HCl) 300 mg PO QID 7 days famotidine 40 mg PO BID PRN 30 days famotidine 40 mg (5 mL) PO BID PRN 30 days flash glucose scanning reader (FreeStyle Anastasiia 2 [place]) As directed furosemide (Lasix) 20 mg PO DAILY insulin glargine (Basaglar KwikPen U-100 Insulin) 12 units subcut QPM insulin lispro (Admelog SoloStar U-100 Insulin lispro) 1 sliding scale dose subcut USEASDIRECTD lancets (FreeStyle Lancets) As directed once a day latanoprost 0.005% 1 drp ophthalmic (eye) BEDTIME loratadine 10 mg PO DAILY PRN 90 days NS metoprolol tartrate 25 mg PO BID nitroglycerin mg sublingual omeprazole-sodium bicarbonate 2-84 mg/mL (Konvomep) mL PO DAILY ondansetron 4 mg PO Q8H PRN 15 days oxycodone 7.5 mg PO BID PRN pen needle, diabetic (Comfort EZ Pen [place]) As directed- QID sennosides (senna) 10 mL PO BID PRN sucralfate malate, polymerized 10 mL mucous membrane BID sulfamethoxazole-trimethoprim 200-40 mg/5 mL 20 mL feeding tube BID 14 days Tobacco use date assessed: 07/03/25 Fall risk assessment: 2 + Falls in past year Last assessed Fall Risk: 07/03/25 Dental Screening Dental Screen Date: 07/03/25 Did you have a dental visit in the last 12 months?: Yes Did you have a dental problem in the last 6 months where you did not have access to dental care?: No Was dental information given to patient?: Patient has dentist HPI 3 mo follow up HPI Details Patient comes in today for her follow up visit States that she currently feels okay Patient just completed her radiation therapy for her 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 back on 05/04/2025 She is scheduled for a follow up PET scan next month on 08/06/2025 She was advised that she is not a candidate for surgery or chemotherapy due to her preexisting medical conditions and significant cardiac Hx States that her previous difficulty swallowing has improved since she completed her radiation Tx and her weight also appears to have stabilized lately Reports that she feels fatigued often but that has also improved somewhat lately She was seen here a couple of weeks ago for some pain and swelling of her right foot - was diagnosed with cellulitis and started on some oral Abx, which she is currently finishing up States that her right foot symptoms have improved a lot since and she only has some redness and what appears to be superficial abrasions on her big toe She denies any fever, headaches or dizziness Denies any chest pains, no increased SOB No nausea/vomiting, no abdominal pain No change in bowel habits noted She had her follow up labs done few days ago - to discuss her results [facility] Medical History Dysphagia Squamous cell carcinoma of base of tongue Head and neck cancer GABRIELA (obstructive sleep apnea) Pulmonary nodule Chronic kidney disease, stage 4 (severe) Chronic kidney disease, stage III (moderate) Atrophic vaginitis Orbital fracture Upper GI bleeding Hearing impairment Seizure Recurrent urinary tract infection Overweight (BMI 25.0-29.9) Vitamin D deficiency Allergic rhinitis Meralgia paresthetica of right side Anemia GERD without esophagitis Asthma Hyperkalemia Diabetic polyneuropathy associated with type 2 diabetes mellitus Peripheral vascular disease Pure hypercholesterolemia Benign essential hypertension Carotid atherosclerosis Coronary artery disease (~06/09/21) Type 2 diabetes mellitus with diabetic polyneuropathy Surgical History Hx of colonoscopy History of endoscopy S/P CABG x 4 (~06/09/21) History of cardiac catheterization (~12/2023) History of left-sided carotid endarterectomy S/P LASIK surgery History of right-sided carotid endarterectomy History of laparoscopic cholecystectomy Family History Father CVD (cardiovascular disease) Mother Stroke Brother CVD (cardiovascular disease) Esophageal cancer Social History Household Members: Children Housing: House Are you a primary daycare teacher to a significant other at home: No Do you presently have visiting nurse or other home services: No Alcohol intake: never Comment: cardiac Patient Tobacco Use Status: Never used Tobacco Tobacco use type: Cigarette e-Cigarette/Vaping Use: Never Used Second Hand Smoke Exposure: No Advance Directives Date on File: 01/11/22 service: No Current occupational status: retired 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 1. Little interest or pleasure in doing things: not at all 2. Feeling down, depressed, or hopeless: not at all 3. Trouble falling or staying asleep, or sleeping too much: not at all 4. Feeling tired or having little energy: more than half the days 5. Poor appetite or overeating: nearly every day 6. Feeling bad about yourself - or that you are a failure or have let yourself or your family down: not at all 7. Trouble concentrating on things, such as reading the newspaper or watching television: not at all 8. Moving or speaking so slowly that other people could have noticed. Or the opposite - being so fidgety or restless that you have been moving around a lot more than usual: not at all 9. Thoughts that you would be better off or of hurting yourself in some way: not at all Total score: 5 Depression Screening Interpretation: Positive Depression Screening Follow-up: Existing condition and In treatment Depression Screening Done: Yes 53962 - PHQ-9 Billing: Yes Source: Developed by Drs. Aquiles Alford, Yohana Coto, Jay Jay Metz and colleagues, with an educational yessi from [employer]. Thrive Questionnaire Date Thrive assessed: 07/03/25 I am a: Patient What is your living situation today?: I have a steady place to live Within the past 12 months, did the food you bought not last and you didn't have the money to get more?: Never true Within the past 12 months, did you worry whether your food would run out before you got money to buy more?: Never true Do you have trouble paying for medicines?: Yes Do you have trouble getting transportation to medical appointments?: No Do you have trouble paying your heating and electricity bill?: I choose not to answer this question Do you have trouble taking care of your child, family member or friend?: No Do you have trouble with day-to-day activities such as bathing, preparing meals, shopping, managing finances, etc.?: Yes Are you currently unemployed and looking for a job?: No Are you interested in more education?: No Currently or been in a relationship where the following occur: No concerns reported THRIVE Score: 0 AUDIT C Alcohol Use Questionnaire (AUDIT-C) 1. How often do you have a drink containing alcohol?: Never 3. How often do you have six or more drinks on one occasion?: Never Total Score: 0 Score Reviewed/Action Taken: Yes GALILEA-7 AMB Questionnaire GALILEA-7 Date GALILEA - 7 assessed: 07/03/25 Feeling nervous, anxious, or on edge: 0 = Not at all Not being able to stop or control worryin = Not at all Worrying too much about different things: 0 = Not at all Trouble relaxin = Not at all Being so restless that it is hard to sit still: 0 = Not at all Becoming easily annoyed or irritable: 0 = Not at all Feeling afraid as if something awful might happen: 0 = Not at all Total GALILEA-7 score (0-4 normal; 5-9 mild; 10-14 moderate; 15-21 severe): 0 Source: Developed by Drs. Aquiles Alford, Yohana Coto, Jay Jay Metz and colleagues, with an educational yessi from [employer]. Physical exam (Primary Care) Vital Signs: Last Vital Signs BP 110/64 07/03/25 14:24 Oxygen Delivery Method Room Air 07/03/25 14:24 BMI result Body Mass Index 25.0 Tobacco/Smoking Status: Tobacco use Status Tobacco use date assessed 07/03/25 07/03/25 14:27 Patient Tobacco Use Status Never used Tobacco 07/03/25 14:27 Tobacco use type Cigarette 07/03/25 14:27 e-Cigarette/Vaping Use Never Used 07/03/25 14:27 PHQ-9: PHQ-9 Score PHQ-9: Total score 5 07/03/25 14:27 Depression Screening Interpretation: Positive Depression Screening Follow-up: Existing condition and In treatment Thrive Assessment: Date of Thrive Assessment Date Thrive assessed 07/03/25 07/03/25 14:27 Currently or been in a relationship where the following occur: No concerns reported Results Reviewed Results Reviewed: Laboratory Tests 06/30/25 06/30/25 07:17 07:23 WBC 4.6 L Hgb 11.5 L Hct 35.4 L Plt Count 278 Sodium 139 Potassium 4.4 Creatinine 1.33 Estimated GFR 38 Fasting Glucose 123 H Hemoglobin A1c % 6.6 H Calcium 9.5 AST 34 H ALT 21 Triglycerides 77 Cholesterol 127 LDL Cholesterol, Calc 69 HDL Cholesterol 43 Vitamin B12 1383 H 25-OH Vitamin D Total 51.6 TSH 3.62 Ur Specific [place] 1.015 Urine Protein Negative Urine Glucose (UA) Negative Urine Blood Negative Urine Nitrite Negative Ur Leukocyte Esterase Trace H Microalb/Creat Ratio 12.7 Coding Level of Care Code Est Pt Level 4 (66000) Complex EM visit Add On G2211 Diagnoses Squamous cell carcinoma of base of tongue C01 Coronary artery disease involving algaaciq coronary artery of algaaciq heart without angina pectoris I25.10 Coronary Disease-Associated Artery/Lesion type: algaaciq artery [place] vs. transplanted heart: algaaciq heart Associated angina: without angina Atherosclerosis of left carotid artery I65.22 Laterality: left Peripheral vascular disease I73.9 Pure hypercholesterolemia E78.00 Benign essential hypertension I10 Type 2 diabetes mellitus with diabetic polyneuropathy, without long-term current use of insulin E11.42 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 halfway insulin use: without halfway use Diabetic polyneuropathy associated with type 2 diabetes mellitus E11.42 Stage 3b chronic kidney disease N18.32 Chronic kidney disease stage 3 subtype: stage 3b (GFR 30-44) Cellulitis of right foot L03.115 Anemia, unspecified type D64.9 Anemia type: unspecified type Moderate persistent asthma without complication J45.40 Asthma severity: moderate Asthma persistence: persistent Asthma complication type: uncomplicated Allergic rhinitis, unspecified seasonality, unspecified trigger J30.9 Allergic rhinitis trigger: unspecified Allergic rhinitis seasonality: unspecified Vitamin D deficiency E55.9 Seizure R56.9 Additional Codes PHQ-9 - 08634 - PHQ-9 Billing: Yes ([id number]) Assessment & Plan Assessment & Plan (1) Squamous cell carcinoma of base of tongue: Code(s): C01 - Malignant neoplasm of base of tongue Category: Medical Plan: Patient just completed her radiation therapy for her 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 a couple of weeks ago on 05/04/2025 She is scheduled for a follow up PET scan next month on 08/06/2025 She was advised that she is not a candidate for surgery or chemotherapy due to her preexisting medical conditions and significant cardiac Hx Patient now has a G-tube in place for all of her feedings and medications she is still not able to swallow anything except for sips of water (2) Coronary artery disease: Onset Date: ~06/09/21 Comment: S/P stenting of ostial LAD; S/P CABG x 4 (RODRIGUEZ-mid LAD, SVG-PLV, left radial artery-OM, SVG-diag) on 06/09/21 Code(s): I25.10 - Atherosclerotic heart disease of algaaciq coronary artery without angina pectoris Category: Medical Qualifiers: Coronary Disease-Associated Artery/Lesion type: algaaciq artery [place] vs. transplanted heart: algaaciq heart Associated angina: without angina Qualified Code(s): I25.10 - Atherosclerotic heart disease of algaaciq coronary artery without angina pectoris Plan: S/P CABG x 4 in May 2021 She reportedly had an angiogram/cardiac cath done at [facility] last year (2023) and was advised that she has (+) occluded SVG to PL but there are no options for percutaneous revascularization of this graft and she should just continue with aggressive medical management Continue Metoprolol ER 50 mg QD and Aspirin 81 mg QD - Aspirin was previously discontinued due to her upper GI bleeding but due to her increasing difficulty swallowing currently, cardiology started her back on low dose Aspirin QD and stopped her Clopidogrel 75 mg QD instead Her daughter states that she has not taken her Isosorbide Mononitrate ER 30 mg QD for a few days now and her previous recurrent dizziness has not recurred since; patient also denies experiencing any chest pains since her discharge from the hospital States that she will reach out to patient's tire builder to see if they have any objection to patient discontinuing her Isosorbide mononitrate at this time Patient also has NTG 0.4 mg tablets to take SL PRN for chest pains Follow up with cardiology (Dr. Alba) as scheduled (3) Carotid atherosclerosis: Comment: S/P left carotid revascularization and endarterectomy in 2019 Code(s): I65.29 - Occlusion and stenosis of unspecified carotid artery Category: Medical Qualifiers: Laterality: left Qualified Code(s): I65.22 - Occlusion and stenosis of left carotid artery Plan: Continue Aspirin 81 mg QD; Clopidogrel was discontinued due to her worsening dysphagia She had a repeat carotid US done a couple of years ago that reportedly came out stable with no significant disease progression Follow up with vascular surgery (Dr. Jesus) as scheduled (4) Peripheral vascular disease: Code(s): I73.9 - Peripheral vascular disease, unspecified Category: Medical Plan: Follow up with vascular surgery as scheduled (5) Pure hypercholesterolemia: Code(s): E78.00 - Pure hypercholesterolemia, unspecified Category: Medical Plan: Results of her labs done a few days ago reviewed and discussed with patient Reinforced low cholesterol diet Continue Atorvastatin 80 mg QD and Ezetimibe 10 mg QD Will recheck her labs and fasting lipids in 3 months for follow up (6) Benign essential hypertension: Code(s): I10 - Essential (primary) hypertension Category: Medical Plan: Reinforced low-sodium diet - goal is systolic BP of at least 120 to 130 mm or less due to her comorbidities Continue Metoprolol tartrate 25 mg BID (this was changed from Metoprolol ER as her medications are now given through her G-tube and they often have to be crushed before being administered; Losartan was previously discontinued due to hyperkalemia Amlodipine 5 mg was also discontinued due to side effects (edema) (7) Type 2 diabetes mellitus with diabetic polyneuropathy: Code(s): E11.42 - Type 2 diabetes mellitus with diabetic polyneuropathy Category: Medical Qualifiers: 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 supervisor insulin use: without halfway use Qualified Code(s): E11.42 - Type 2 diabetes mellitus with diabetic polyneuropathy Plan: Her HgbA1c was at 6.6% on her labs done a few days ago (this was previously at 5.8% a few months ago) - goal is < 7.0% Reinforced diabetic diet She was taken OFF Metformin a few months ago due to her declining renal function and was then on Farxiga 10 mg QD and Glyburide 5 mg Q AM and 2.5 mg Q PM but she was also having trouble swallowing her Farxiga tablet She is now only on Basaglar 12 units once a day in the evening and Admelog U 100 TID with meals per sliding scale and is no longer on any other oral medications for her diabetes She now states that she received a letter from her insurance company informing her that beginning in 2025, they are no longer covering Basaglar and will need to switch to Lantus or another covered alternative (8) Diabetic polyneuropathy associated with type 2 diabetes mellitus: Code(s): E11.42 - Type 2 diabetes mellitus with diabetic polyneuropathy Category: Medical Plan: Continue Oxycodone 5 mg 2 to 3 times a day ONLY NEEDED for severe pain Will consider starting her on Gabapentin if her symptoms progress or worsen (9) Chronic kidney disease, stage III (moderate): Code(s): N18.30 - Chronic kidney disease, stage 3 unspecified Category: Medical Qualifiers: Chronic kidney disease stage 3 subtype: stage 3b (GFR 30-44) Qualified Code(s): N18.32 - Chronic kidney disease, stage 3b Plan: Her serum creatinine and GFR appears to have stabilized on her recent labs Follow up with nephrology as scheduled Will continue to monitor GFR and renal function regularly (10) Cellulitis of right foot: Code(s): L03.115 - Cellulitis of right lower limb Category: Medical Plan: Resolving - she is currently still finishing up her prescribed Abx Patient is instructed to continue elevating her right foot as often as she can throughout the day and to continue with daily wound care (11) Anemia: Code(s): D64.9 - Anemia, unspecified Category: Medical Qualifiers: Anemia type: unspecified type Qualified Code(s): D64.9 - Anemia, unspecified Plan: Stable - was most likely multifactorial, including due to upper GI bleeding a couple of years ago that required Hemospray and 2 units of PRBC Will continue to monitor her CBC regularly Follow up with hematology (Dr. Vazquez) as scheduled (12) Asthma: Code(s): J45.909 - Unspecified asthma, uncomplicated Category: Medical Qualifiers: Asthma severity: moderate Asthma persistence: persistent Asthma complication type: uncomplicated Qualified Code(s): J45.40 - Moderate persistent asthma, uncomplicated Plan: Controlled Continue Albuterol HFA 2 puffs 4 times a day as needed Patient also has a nebulizer that she uses (with Albuterol solution 0.083%) up to 4 times a day when needed (13) Allergic rhinitis: Code(s): J30.9 - Allergic rhinitis, unspecified Category: Medical Qualifiers: Allergic rhinitis trigger: unspecified Allergic rhinitis seasonality: unspecified Qualified Code(s): J30.9 - Allergic rhinitis, unspecified Plan: Continue Loratadine 10 mg QD PRN (14) Vitamin D deficiency: Code(s): E55.9 - Vitamin D deficiency, unspecified Category: Medical Plan: Continue Vitamin D3 1000 units QD (15) Seizure: Code(s): R56.9 - Unspecified convulsions Category: Medical Plan: This was most likely due to (adverse reaction from) Doxycycline; she has had no recurrence of seizures since her discharge from [facility] a couple of years ago CTA of the head/neck and MRI of the brain done back then came out negative EEG done showed mild to moderate background slowing with occasional triphasic waves but no epileptiform activity was noted Neurology (Dr. Hernandez) thinks that patient actually had a TIA instead of a seizure Plan Follow up in 3 months Orders: Orders Hemoglobin A1c 3 Months E11.9 - Type 2 diabetes mellitus without complications Microalbumin, Random (w Creat) 3 Months E11.9 - Type 2 diabetes mellitus without complications Vitamin B12 and Folate 3 Months E53.8 - Deficiency of other specified B group vitamins Vitamin D 25-OH Total 3 Months E55.9 - Vitamin D deficiency, unspecified Complete Blood Count Auto Diff 3 Months D64.9 - Anemia, unspecified Lipid Panel 3 Months E78.00 - Pure hypercholesterolemia, unspecified Comprehensive [place]. Panel Fast 3 Months E78.00 - Pure hypercholesterolemia, unspecified TSH reflex Free T4 3 Months E78.00 - Pure hypercholesterolemia, unspecified UA CC w/rflx Micro + Cult 3 Months R30.0 - Dysuria
--- OUTSIDE RECORDS SUMMARY | 2025-07-03 21:12 | XMS_ITS | Clinical Summary ---
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 ([facility] V24) TAKE 1 TABLET(30 MG) BY MOUTH [...] Problem Noted Date Diagnosed Date Angina pectoris ([facility] V24) 03/01/2022 Overview (07/15/2024): post CABG Diabetes 1.5, managed as type 2 ([facility] V24, CM S/[facility] V28) 08/01/2021 Seizure disorder (CMS/[facility] V24, CMS/[facility] V28) 07/20 Hx of CABG 06/22/2021 Assessment [...] 6:55 PM EST): Type 2 diabetes mellitus ([facility] V24, [facility] V 28) 06/21/2021 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 Assessment & Plan (09/12/2024 6:55 PM EST): Blood pressure is favorable on current medical therapy; continue metoprolol addition to newly added isosorbide. We will attempt to get more with her recent labs from her PCPs office for review. Peripheral vascular disease ([facility] V24) 2020 Assessment & Plan (2024 12:12 PM EDT): The patient will continue to follow with vascular surgery as recommended. Assessment & Plan (09/12/2024 6:55 PM EST): The patient will continue to follow with vascular surgery as recommended. Hyperlipidemia 10/28/2020 Assessment & Plan (2024 12:12 PM EDT): The patient believes that she had a more recent lipid panel completed at [facility]; we will attempt to obtain these for [...] AM EDT Office Visit Orthopedic Surgery - [address] [place] [id number] Misael Martin DPM Controlled type 2 diabetes with neuropathy ([facility] V24, [facility] V28) (Primary Dx); Amputation of fifth toe of right foot ([facility] V24); Peripheral vascular disease, unspecified ([facility] V24); Neuropathy; Arthritis of both feet; Onychomycosis 05/13/2025 Telephone [facility] [place] - [facility] [address] [facility] [address] [place] [address] Alex Alba MD 04/21/2025 Telephone [facility] - [facility] [address] [facility] [address] [place] [address] Alex Alba MD from Last [...] DX:Hematemesis Left orbit fracture (CMS/HCC V24, [facility] V28) DX:Left orbit fracture (HCC) Upper GI bleed DX:Upper GI blee d Hemorrhagic shock ([facility] V 24, [facility] V28) DX:Hemorrhagic shock (HCC) Acute kidney injury superimp osed on CKD ([facility] V24) DX:Acute kidney injury super imposed on CKD ([facility]) Hyponatremia DX:Hyponatremia Delirium DX:Delirium UTI (urinary tract infection) DX :UTI (urinary tract infection) Anemia DX:Anemia Claudication ([facility] V24) DX:Cl audication ([facility]) COPD (chronic obstructive pu lmonary disease) ([facility] V24, [facility] V28) DX:COPD (chronic o bstructive pulmonary disease) ([facility]) 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 ([facility] V 24, [facility] V28) DX: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 ([facility]) GERD (gastroesophageal reflu x disease) DX:GERD (gastroesophageal re flux disease) Hard of hearing DX:Hard of heari ng Neck strain DX:Neck strain Obesity DX:Obesity PONV (postoperative nausea a nd vomiting) DX:PONV (postoperative nause a and vomiting) Toe ulcer ([facility] V24, [facility] V28) DX:Toe ulcer ([facility]) Family History Medical History Relation Name Comments [...] Description 07/13/2025 2:00 PM EST Office Visit [facility] - [facility] [address] [facility] [address] [place] [address] Alex Alba MD [address] [place] [address] [address] [place] [phone] 08/10/2025 10:00 AM EST Office Visit Orthopedic Surgery - [place] [address] [facility] [address] [place] [phone] Misael Martin, DPDewayne 175 [facility] [address] [place] [address] Health Maintenance Due Date Last Done Comments [...] age to complete this topic Insurance MEDICARE [facility] [address] [place] [address] Care Teams Belt Glass Sander Relationship Specialty Start Date End Date Jimmy Awan MD [address] [facility] [address] ADRI Ugarte PCP - General 05/21/12
--- OUTSIDE RECORDS SUMMARY | 2025-07-03 21:12 | XMS_ITS | Data Portability ---
Author Organization [facility] [employer] Address [address] [facility] [place] [address] Care Team Providers Care Juvenile Justice Specialist Name Role Phone GAURAV ROMAN Referring Provider [phone] LILIANA GREEN OTHER Assessment Encounter Date Assessment [...] ast No observ ation record ed. [email or web address] [facility] ([facility]) [address] [place], [address], 10/17/2021 14:29:22 Result Notes None recorded. Procedures Surgical History Date Name Laterality Status Provider Name and Address Organization Details Recorded Time 10/13/2021 DATA REVIEW completed Antony Hernandez MD [address] [place], [place] [address], [address], [facility] 10/13/2021 17:40:07 Imaging Results None recorded. Procedure Notes None recorded. Medical Equipment None Reported. Allergies Allergen ID Allergen Name Allergen Category Reaction Reaction Severity Criticality Documentation Date Start Date Code Code System Note Provider Name and Address Organization Details Recorded Time 1213 Product containin g penicilli n (product) medicatio n Not available Not available Not available 10/13/2021 68350 8001 SNOMED [place] [facility] 2 11:19:23 1214 doxycycli ne Not available Not available Not available Not available 10/13/2021 3640 RxNorm [facility] on [facility] 2 11:22:18 1215 Keppra medicatio n Not available Not available Not available 10/13/2021 86502 7 RxNorm [facility] on [facility] 2 11:22:28 Medications Name [...] Updated DateTime 10/13/2021 157.48 cm 27.1 kg/m2 66931.67 g 12 /min Ciera Dumont [facility] 10/13/2021 11:18:56 Social History Question Answer Notes LastModified by Organizat ion Details LastModified Time Tobacco Smoking Status Former Smoker Ciera jenkins [facility] 10/13/2021 11:24:52 What Is Your Level Of Caffeine Consumption? Occasional Information not available 10/13/2021 What Is The Highest Grade Or Level Of School You Have Completed Or The Highest Degree You Have Received? [id number] Information not available 10/13/2021 Which Of Your [...] Codes Diagnosis Note 4064 Antony Hernandez MD [facility] [address] [place] [address] [place] [address] 10/13/2021 10:47:12 10/17/2021 07:47:44 Complex partial seizure with impairment of consciousness 1968359 G40.209 Generalize d-onset seizures 1520154 G40.309 Acute cere brovascular insufficiency 85171427 I67.81 Health Concerns Section Related Observation LastModified by Organization Detai ls LastModified Time None Recorded Concern Status LastModified by Organization Details LastModified Time None Recorded Advance Directives Directive None Recorded Payers Insurance Date Sequence Insurance Name Policy Number Policy Jamil Covered Member ID Jamil Member ID Guarantor Name 10/17/2021 1 [place]IC[place] B-[place]: [employer] Jermain Fowler Janet [id number] Jermain Gonzales 10/12/2021 2 [employer] [place] [id number] 1 Jermain Gonzales [id number] Jermain Gonzales Notes Date Note Type Note [...] causing suspicion for seizure. Antony Hernandez MD [address] [place] [address] [place], [address], [facility] 10/13/2021 17:43:39 OBGyn Episode No OBEpisode recorded.
--- OUTSIDE RECORDS SUMMARY | 2025-07-03 21:12 | XMS_ITS | Clinical Summary ---
Author Organization [facility] Address [address] [facility] [address] [place] [address] Phone Care Team Providers Care Tank Stave Assembler Name Role Phone Jimmy Awan MD Primary Care Provider [phone] Allergies Active Allergy Reactions Criticality Noted Date [...] patient's age to complete this topic IPV VACCINES Aged Out No longer eligi ble based on patient's age to complete this topic MENINGOCOCCAL VACCINES (ACWY) Aged Out No longer eligible based on patient's age to complete this topic MENINGOCOCCAL VACCINES (B) Aged Out N o longer eligible based on patient's age to complete this topic Medical Devices Not on file Insurance MEDICARE PART A & [place] [address] [place] [address] MEDICARE SUPPLEMENT MEDICARE PART A & B [facility] MEDICARE SUPPLEMENT MEDICARE PART A & B [id number] [place] [address] MEDICARE SUPPLEMENT MEDICARE PART A & B [facility] MEDICARE SUPPLEMENT MEDICARE PART A & B [facility] MEDICARE SUPPLEMENT MEDICARE PART A & B Member Subscriber Plan / Payer ( fective 2012-Present) Name:Jermain Gonzales Member ID:[id number] Relation to Subscriber:Self Name:Jermain Gonzales Subscriber ID:[id number] Payer ID:[id number] Group ID:Not on file Type:Medicare Address: [employer] [address] MEDICARE SUPPLEMENT MEDICARE PART A & B MEDICARE SUPPLEMENT MEDICARE PART A & B [facility] MEDICARE SUPPLEMENT MEDICARE PART A & B MEDICARE SUPPLEMENT Care Teams Tank Stave Assembler Relationship Specialty Start Date End Date Jimmy Awan MD [address] [place] [address] [address] [facility] [place] [address] PCP - General Internal Medicine 07/10/21 Additional Source Comments The information contained in this document represents components of the legal health record. It is not the complete legal health record.[facility]
--- OUTSIDE RECORDS SUMMARY | 2025-07-03 21:12 | XMS_ITS | Clinical Summary ---
Author Organization [facility], Address [address] [facility] 3 [place] [address] Phone Care Team Providers Care Cook Specialty Name Role Phone Jimmy Awan MD Primary Care Provider [phone] Allergies Active Allergy Reactions Criticality Noted Date [...] tablet Place 0.3 mg under the tongue 1 Active nystatin (MYCOSTATIN) powder Apply 1 application [...] age to complete this topic Insurance Medicare [facility] Medicare [facility] Care Teams Cook Specialty Relationship Specialty Start Date End Date Jimmy Awan MD [address] [place] [address] [address] [place] [address] PCP - General Internal Medicine 07/28/21
--- OUTSIDE RECORDS SUMMARY | 2025-07-03 21:12 | XMS_ITS | Data Portability ---
Author Organization MD - [facility], Allergy Address [address] [address] Care Team Providers Care Teacher Resource Name Role Phone ABEL, GAURAV Primary Care [...] PET/CT Imagin g Access ion Number : [id number] Patien t Name: Jermain Gonzales Shawna l Record Number : [id number] Date of : 1940 Date of Exam: 2024 Referr ing Physic erica: Leah ta, Amy [facility] [place] [address] [facility] [address] [place] [address] Exam: PT Skull Base to Mid Thigh CPT 56930 Room Descri ption: Wallace SiemBi o Pt4 PT Skull Base to Mid Thigh CPT 70336 Histor y: Initia l stagin g 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 Findin gs: Picture Framer al Refere nce Values : Ascend ing aortic blood pool: SUV mean 2.1, SUV max 2.7. Right hepati c lobe: SUV mean 2.2, SUV max 3.4. Head/n josselyn: Irregu lar shaped lesion noted at the left investigator internal revenue ior aspect of the tongue measur ing [...] avid irregu lar shaped lesion at the investigator internal revenue ior left aspect of the tongue is [...] ly Signed By: Jesus Chavez MD reppsteiner [facility] ([facility]) [address] [place], [address], 02/23/2025 16:55:00 Result Notes Documentation Provider Name and Address Organization Details Recorded Time Pet-ct, Skull Base To Mid-thigh Scan : [facility] PET/CT Imaging Accession Number: [id number] Patient Name: Jermain Gonzales Date of : 1940 Date of Exam: 02-08-2025 Referring Physician: Amy Cleveland [facility] [address] [address] Exam: PT Skull Base to Mid Thigh CPT 54954 Room Description: [facility] Pt4 PT Skull Base to Mid Thigh CPT 61280 History: Initial staging of invasive squamous cell [...] findings. 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 2024 AMY Chacko MD [address] [place] [address], [address], [place] [facility] 15:39:25 Finding of neck region 956379654 Active 2024 AMY Chacko MD [address] [place] [address] [place], [address], [facility] - [facility] [place] 15:39:33 Chronic sore throat 061769157 Active 2024 AMY Chacko MD [address] [address], [place], [address], [facility] - [facility] [place] 15:39:42 Oropharyngeal dysphagia 18887545 Active 2024 AMY Chacko MD [address] [address], [place], [address], [facility] - [facility] [place] 15:39:47 Malignant neoplasm of base of tongue 069454086 Active 2024 AMY Chacko MD [address] [address], [place], [address], [facility] - [facility] [place] 11:43:43 Problem Notes None recorded. Procedures Surgical History Date Name Laterality Status Provider Name and Address Organization Details Recorded Time Biopsy Anterior Tongue completed AMY CLEVELAND MD [address], [address], [facility] 01/19/2025 11:57:05 FFL_RE completed AMY CLEVELAND MD [address] [place] [address], [address], [facility] 01/13/2025 15:55:18 Imaging Results None recorded. Procedure [...] Updated DateTime 01/13/2025 157.48 cm 26.9 kg/m2 70800.08 g Ras Fall [facility] 01/13/2025 15:33:13 Date Recorded Body height Body mass index (BMI) Body weight Provider Name and Address Organization Details Last Updated DateTime 01/19/2025 157.48 cm 26.9 kg/m2 47952.08 g Ras Fall [facility] 01/19/2025 11:40:07 Social History Question Answer Notes LastModified by [employer] Details LastModified Time Tobacco Smoking Status Never Smoker Ras jenkins [facility] 01/13/2025 15:33:50 What Type Of Marble Cutter Operator Do You Use? None Information not available 01/13/2025 Do You Have Any Pets? Yes Information not available 01/13/2025 Are You Passively Exposed To Smoke? No Information not available 01/13/2025 Are There Any Smokers In Your House? No Information not available 01/13/2025 Sex: Unknown Functional Status Question Answer Note LastModified by [employer] Details LastModified Time Do you use any [...] Anxiety N Thyroid Problems N Dementia N Asthma Y Developmental Delay N Glaucoma Y Anemia Y GERD/Reflux Y Headaches Y Fibromyalgia N Speech Delay N Kidney Disease Y Gynecological HistoryNo gynecological history recorded. 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 Chronic sore throat 2754 [address]3590 J31.2 2579 Likely due to the tumor. I discussed this will not improve until the likely cancer is treated. Oropharyng eal dysphagia 24130742 R13.12 8208 Likely due to the tumor. I discussed this will not improve until the likely cancer is treated. 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 Will refer to [facility] if this turns out to be cancer. Can resume plavix and asa tomorrow. Will call with pathology. 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 Chronic sore throat 2754 [address]6299 J31.2 2579 Likely due to the tumor. I discussed this will not improve until the likely cancer is treated. Oropharyng eal dysphagia 80588714 R13.12 8208 Likely due to the tumor. [...] ID Guarantor Name 01/19/2025 1 [place]IC[place] B-[place]: [employer] Jermain Gonzales [id number] Jermain Gonzales 01/13/2025 1 [employer] [facility] [employer] [id number] 1 Jermain Armand Janet [id number] Jermain Gonzales 02/05/2025 2 UNSPECIFIED REMIT PAYOR Jermain Gonzales 01/19/2025 2 [facility] (MEDICARE SUPPLEMENT) [id number] 1 Jermain Acuna Janet [id number] Jermain Gonzales Notes Date Note Type Note [...] ago. No trouble breathing. AMY CLEVELAND MD [address] [place] [address], [address], [place] [facility] 01/13/2025 17:24:53 01/19/2025 text/html ROS as noted in the HPI She has a history of 3 months of left sided throat pain. She has noted a neck mass. CT neck without contrast demonstrated a 5cm left BOT mass with associated ipsilateral cystic likely necrotic adenopathy. She stopped her plavix at the last visit. AMY CLEVELAND MD [address] [place] [address], [address], [place] [facility] 01/19/2025 11:58:29 OBGyn Episode No OBEpisode recorded.
--- OUTSIDE RECORDS SUMMARY | 2025-07-03 21:12 | XMS_ITS | Encounter Summary ---
Author Organization [facility] Address [address] [facility] [address] [place] [address] Phone Care Team Providers Care Xray Tech Name Role Phone Jimmy Awan MD Primary Care Provider [phone] Reason for Referral * Consultation (Elective) - Closed Specialty Diagnoses / Procedures Referred By Contac t Referred To Contact Cardiac Rehabilitation Diagnoses S/P CABG (coronary artery bypass graft) Cheryl Butts MD [address] [place] [address] Phone: tel: fax: [address] [address] Phone: tel: Referral ID Status Reason Start Date Expiration Date Visits Re quested Visits Authorized [id number] Closed 09/02/2021 09/02/2022 1 1 Encounter Details Date Type Department Care Team (Late st Contact Info) Description 09/02/2021 Transcribe Orders [facility] Department [address] [place] [address] Cheryl Butts MD [address] [place] [address] S/P CABG (coronary artery bypass graft) (Primary [...] Associated Diagnoses Order Schedule Ambulatory referral to [facility] Cardiac Rehab Outpatient Referral Routine S/P CABG (coronary artery bypass graft) Ordered: 09/02/2021 documented as of this encounter Visit Diagnoses Diagnosis S/P CABG (coronary artery bypass graft)- Primary Postsurgical aortocoronary bypass status documented in this encounter Care Teams Xray Tech Relationship Specialty Start Date End Date Jimmy Awan MD [address] [place] [address] [place] [address] PCP - General Internal Medicine 07/10/21 documented as of this encounter Additional Source Comments The information contained in this document represents components of the legal health record. It is not the complete legal health record.[facility]
== END 2025-07-03 15:22 | disposition home or self-care (01) ==
LOC: HO.HMCH 14:15
PROVIDERS: PCP Internal Medicine; Visit Provider Internal Medicine
DX: C01 Malignant neoplasm of base of tongue (principal); I25.10 Atherosclerotic heart disease of native coronary artery without angina pectoris; I65.22 Occlusion and stenosis of left carotid artery; I73.9 Peripheral vascular disease, unspecified; E78.00 Pure hypercholesterolemia, unspecified; I10 Essential (primary) hypertension; E11.42 Type 2 diabetes mellitus with diabetic polyneuropathy; N18.32 Chronic kidney disease, stage 3b; L03.115 Cellulitis of right lower limb; D64.9 Anemia, unspecified; J45.40 Moderate persistent asthma, uncomplicated; R56.9 Unspecified convulsions; J30.9 Allergic rhinitis, unspecified; E55.9 Vitamin D deficiency, unspecified

== ENCOUNTER → 2025-07-03 14:14 | Outpatient (BNVA) | payer MEDICARE, OTHER, SELFPAY | PROVIDERS: PCP Internal Medicine; Visit Provider Internal Medicine | DX: C01 Malignant neoplasm of base of tongue (principal); I25.10 Atherosclerotic heart disease of native coronary artery without angina pectoris; I65.22 Occlusion and stenosis of left carotid artery; I73.9 Peripheral vascular disease, unspecified; E78.00 Pure hypercholesterolemia, unspecified; E11.42 Type 2 diabetes mellitus with diabetic polyneuropathy; I12.9 Hypertensive chronic kidney disease with stage 1 through stage 4 chronic kidney disease, or unspecified chronic kidney disease; E11.22 Type 2 diabetes mellitus with diabetic chronic kidney disease; N18.32 Chronic kidney disease, stage 3b; L03.115 Cellulitis of right lower limb; D64.9 Anemia, unspecified; J45.40 Moderate persistent asthma, uncomplicated; J30.9 Allergic rhinitis, unspecified; E55.9 Vitamin D deficiency, unspecified; Z79.899 Other long term (current) drug therapy; Z79.4 Long term (current) use of insulin | CPT/HCPCS: 96127; 99212 ==

== ENCOUNTER 2025-07-21 09:33 | Outpatient (AMB) | payer MEDICARE, OTHER, SELFPAY ==
--- NOTE | 2025-07-21 09:35 | MHC.OFFVIS ---
Vital Signs 07/21/25 09:43 Height 5 ft 2 in Weight 134 lb BMI 24.5 BP 92/40 L Blood Pressure Location Rt brachial Position Sitting Pulse 70 Pulse Source Pulse Oximeter Pulse Oximetry (%) 96 Oxygen Delivery Method Room Air Intake Visit Reasons: complex do not change please Intake Note: ESTABLISHED PATIENT for GERD, anemia, and squamous cell carcinoma of the tongue. Chief Complaint; C/O persistence of painful swallowing; however, she is doing much better and has less pain than during her last visit. She had the procedure and is waiting for the PET scan later this month to determine cancer tx status. She also reports she has reverted most of her meds back to pill form, and has started to resume her normal diet. Pastry Assistant Required: No Accompanied by: Family/Other Allergies evolocumab (From Repatha SureClick) Allergy (Intermediate, Verified 07/21/25 09:39) Hives doxycycline Allergy (Mild, Verified 07/21/25 09:39) Vomiting levetiracetam (From Keppra) Allergy (Mild, Verified 07/21/25 09:39) Vomiting amoxicillin Allergy (Unknown, Verified 07/21/25 09:39) rash Penicillins Allergy (Unknown, Verified 07/21/25 09:39) rash prednisone Allergy (Unknown, Verified 07/21/25 09:39) rash ceftriaxone (From Rocephin) Allergy (Verified 07/21/25 09:39) Rash milk Allergy (Verified 07/21/25 09:39) Unknown omeprazole Adverse Reaction (Unknown, Verified 07/21/25 09:39) worsening heartburn ranitidine Adverse Reaction (Unknown, Verified 07/21/25 09:39) worsening heartburn, abdominal pain (ONLY to generic) HPI HPI complex do not change please: Details: LAST VISIT: GERD without esophagitis Dysphagia Squamous cell carcinoma of base of tongue Plan Patient will continue PPI and H2 abel. Encouraged patient to increase nutritional shakes. May take senna as needed. Patient will continue following up with ENT, speech therapy and oncology. Continue exercises recommended by speech therapist at home to improve swallowing. Follow-up in 3 months. Patient was encouraged to call us if she will have any GI concerning symptoms. She is agreeable to this plan and verbalizes understanding of instructions. She was given the opportunity to ask questions and all questions answered. ? TODAY'S VISIT Patient is here today for follow-up visit. Patient reports that she is doing better now. Patient states that she is starting to use regular food and only uses G-tube occasionally. Patient is following up with ENT, speech therapy and Oncology. Patient will be has been more testing done. PET scan was done patient is waiting for results. Overall she reports that she is doing better. She is drinking protein shakes. Eats mostly soft foods. Patient denies any nausea or vomiting. Patient currently is taking pantoprazole and reports that she is doing well. Denies dyspepsia, reports occasional dysphagia with odynophagia. Patient reports that she is moving her bowels without any issues. Patient denies any other GI concerning symptoms. [facility] Medical History Dysphagia Squamous cell carcinoma of base of tongue Head and neck cancer GABRIELA (obstructive sleep apnea) Pulmonary nodule Chronic kidney disease, stage 4 (severe) Chronic kidney disease, stage III (moderate) Atrophic vaginitis Orbital fracture Upper GI bleeding Hearing impairment Seizure Recurrent urinary tract infection Overweight (BMI 25.0-29.9) Vitamin D deficiency Allergic rhinitis Meralgia paresthetica of right side Anemia GERD without esophagitis Asthma Hyperkalemia Diabetic polyneuropathy associated with type 2 diabetes mellitus Peripheral vascular disease Pure hypercholesterolemia Benign essential hypertension Carotid atherosclerosis Coronary artery disease (~06/09/21) Type 2 diabetes mellitus with diabetic polyneuropathy Surgical History Hx of colonoscopy History of endoscopy S/P CABG x 4 (~06/09/21) History of cardiac catheterization (~12/2023) History of left-sided carotid endarterectomy S/P LASIK surgery History of right-sided carotid endarterectomy History of laparoscopic cholecystectomy Family History Father CVD (cardiovascular disease) Mother Stroke Brother CVD (cardiovascular disease) Esophageal cancer Social History Household Members: Children Housing: House Are you a primary director day care center to a significant other at home: No Do you presently have visiting nurse or other home services: No Alcohol intake: never Comment: cardiac Patient Tobacco Use Status: Never used Tobacco Tobacco use type: Cigarette e-Cigarette/Vaping Use: Never Used Second Hand Smoke Exposure: No Advance Directives Date on File: 01/11/22 service: No Current occupational status: retired 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 Cognitive needs: No Hearing needs: No Vision needs: No Review of Systems Const Denies weight gain and Reports weight loss ENT Reports no additional complaints, Reports dysphagia and Denies odynophagia Card Reports no additional complaints Resp Reports no additional complaints GI Denies abdominal pain, Denies belching, Denies melena, Denies bloating, Denies change in bowel habits, Reports dysphagia, Denies excessive flatus, Denies dyspepsia, Denies heartburn, Denies diarrhea, Denies loose stools, Denies nausea, Denies odynophagia and Denies vomiting Reports no additional complaints Musc Reports no additional complaints Neuro Reports no additional complaints Psych Reports no additional complaints Endo Reports no additional complaints Physical Exam Vital Signs: Last Vital Signs Pulse 70 07/21/25 09:43 BP 92/40 L 07/21/25 09:43 Pulse Ox 96 07/21/25 09:43 Oxygen Delivery Method Room Air 07/21/25 09:43 BMI result Body Mass Index 24.5 Const General: healthy appearing and no acute distress Nutritional Appearance: obese Orientation/consciousness: patient oriented x3 Resp Effort & Inspection: normal respiratory effort, able to speak in complete sentences, no tracheal deviation and symmetric chest movement Auscultation: clear to auscultation bilaterally Cardio Rate: regular rate GI Other: G-tube in place Inspection: Yes normal to inspection, No distended and Yes obesity Palpation (GI): Soft to palpation, not firm, nontender and No hepatosplenomegaly present Auscultation: normal bowel sounds General: Yes no CVA tenderness Back/Spine/Pelvis Back: no CVA tenderness Skin General skin exam: elasticity normal, turgor normal and dry skin Neuro General: patient oriented x3 Psych Appearance: grossly normal Mental Status: mental status grossly normal Assessment & Plan Assessment & Plan (1) GERD without esophagitis: Code(s): K21.9 - Gastro-esophageal reflux disease without esophagitis Category: Medical (2) Dysphagia: Code(s): R13.10 - Dysphagia, unspecified Category: Medical Qualifiers: Dysphagia type: oropharyngeal phase Qualified Code(s): R13.12 - Dysphagia, oropharyngeal phase (3) Squamous cell carcinoma of base of tongue: Code(s): C01 - Malignant neoplasm of base of tongue Category: Medical Plan Patient will continue taking pantoprazole twice a day. Avoid dietary triggers a late night snacking. Patient was encouraged to eat small bites and soft foods. Follow-up in the office in 3 months. Patient will call us if she will have any GI concerning symptoms. She is agreeable to this plan and verbalizes understanding of instructions. She was given the opportunity to ask questions and all questions answered. Thank you for allowing me to participate in her care Medications: Discontinued famotidine Discontinued Reason: Doctor's Order 40 mg PO BID 30 days PRN 60 tabs 5RF heartburn/acid reflux Coding Level of Care Code Est Pt Level 4 (82739) Diagnoses GERD without esophagitis K21.9 Oropharyngeal dysphagia R13.12 Dysphagia type: oropharyngeal phase Squamous cell carcinoma of base of tongue C01 Time Spent (min) 40 Comment 25 minutes spent with patient and additional 15 minutes spent reviewing her records
[2025-07-21 09:43] VITALS: BP 92/40; PULSE 70; O2SAT 96; BMI 24.5
--- OUTSIDE RECORDS SUMMARY | 2025-07-21 10:23 | XMS_ITS | Data Portability ---
Author Organization [place] - [facility], Allergy Address [address] [address] Care Team Providers Care Child Nurse Name Role Phone ABEL, GAURAV Primary Care [...] PET/CT Imagin g Access ion Number : [id number] Patien t Name: Jermain Gonzales Shawna l Record Number : [id number] Date of : 1940 Date of Exam: 2024 Referr ing Physic erica: Leah ta, Amy [facility] [place] [address] [facility] [address] [place] [address] Exam: PT Skull Base to Mid Thigh CPT 17965 Room Descri ption: [place] [facility] Pt4 PT Skull Base to Mid Thigh CPT 76225 Histor y: Initia l stagin g of invasi ve squamo us cell carcin florencio of the left staff reporter ior aspect of the tongue Compar judith: [...] inject ion was 97 mg/dL. Findin gs: Principal Android Developer al Refere nce Values : Ascend ing aortic blood pool: SUV mean 2.1, SUV max 2.7. Right hepati c lobe: SUV mean 2.2, SUV max 3.4. Head/n josselyn: Irregu lar shaped lesion noted at the left staff reporter ior aspect of the tongue measur ing [...] irregu lar shaped lesion at the staff reporter ior left aspect of the tongue is consis tent with biopsy -prove n squamo us cell carcin florencio. 2. Large necrot ic appear ing left cervic al level IIA lymph nodes are concer mio for metast asis. I, Jesus Chavez MD, have review ed the images and report and concur with the reside nt, Navdepe Avilas, joseph blake. Electr onical ly Signed By: Jesus Chavez MD reppsteiner [facility] ([facility]) [address] [place], [address], 02/23/2025 16:55:00 Result Notes Documentation Provider Name and Address Organization Details Recorded Time Pet-ct, Skull Base To Mid-thigh Scan : [facility] PET/CT Imaging Accession Number: [id number] Patient Name: Jermain Gonzales Date of : 1940 Date of Exam: 02-08-2025 Referring Physician: Amy Cleveland [facility] [address] [address] Exam: PT Skull Base to Mid Thigh CPT 18478 Room Description: [facility] Pt4 PT Skull Base to Mid Thigh CPT 19906 History: Initial staging of invasive squamous cell [...] findings. 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 69528649 Active 2024 AMY Chacko MD [address] [place] [address], [address], [place] - [facility] 15:39:25 Finding of neck region 840004006 Active 2024 AMY Chacko MD [address] [place] [address] [place], [address], [facility] - [facility] [place] 15:39:33 Chronic sore throat 098265418 Active 2024 AMY Chcako MD [address] [address], [place], [address], [facility] - [facility] 15:39:42 Oropharyngeal dysphagia 42920614 Active 2024 AMY Chacko MD [address] [address], [place], [address], [facility] - [facility] 15:39:47 Malignant neoplasm of base of tongue 255968754 Active 2024 AMY Chacko MD [address] [address], [place], [address], [facility] - [facility] 11:43:43 Problem Notes None recorded. Procedures Surgical History Date Name Laterality Status Provider Name and Address Organization Details Recorded Time Biopsy Anterior Tongue completed AMY CLEVELAND MD [address], [address], [facility] 01/19/2025 11:57:05 FFL_RE completed AMY CLEVELAND MD [address] [place] [address], [address], [facility] 01/13/2025 15:55:18 Imaging Results None recorded. [...] Updated DateTime 01/13/2025 157.48 cm 26.9 kg/m2 40214.08 g Ras Fall [facility] 01/13/2025 15:33:13 Date Recorded Body height Body mass index (BMI) Body weight Provider Name and Address Organization Details Last Updated DateTime 01/19/2025 157.48 cm 26.9 kg/m2 66693.08 g Ras Fall [facility] 01/19/2025 11:40:07 Social History Question Answer Notes LastModified by [employer] Details LastModified Time Tobacco Smoking Status Never Smoker Ras jenkins [facility] 01/13/2025 15:33:50 What Type Of Windows Server Specialist Do You Use? None Information not available 01/13/2025 Do You Have Any Pets? Yes Information not available 01/13/2025 Are You Passively Exposed To Smoke? No Information not available 01/13/2025 Are There Any Smokers In Your House? No Information not available 01/13/2025 Sex: Unknown Functional Status Question Answer Note LastModified by [employer] Details LastModified Time Do you use any [...] ICD10 Code Diagnosis IMO Codes Diagnosis Note 11070 AMY CLEVELAND MD [facility] 100 [place] [address] 01/13/2025 15:09:42 01/13/2025 16:01:39 Neoplasm of uncertain behavior of base of tongue 21324541 D37.02 001875 She likely has an advanced stage oral [...] as palliative treatment. 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 Chronic sore throat 2754 21156 J31.2 2579 Likely due to the tumor. I discussed this will not improve until the likely cancer is treated. Oropharyng eal dysphagia 63699502 R13.12 8208 Likely due to the tumor. I discussed this will not improve until the likely cancer is treated. 24563 AMY CLEVELAND MD [facility] on [address] [place] [address] 01/19/2025 11:14:46 01/19/2025 12:58:15 Neoplasm of uncertain behavior of base of tongue 14529810 D37.02 228523 tongue biopsy performed. Will refer to [facility] if this turns out to be cancer. Can resume plavix and asa tomorrow. Will call with pathology. 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 Chronic sore throat 2754 26589 J31.2 2579 Likely due to the tumor. I discussed this will not improve until the likely cancer is treated. Oropharyng eal dysphagia 19516689 R13.12 8208 Likely due to the tumor. [...] ID Guarantor Name 01/19/2025 1 [place]ICARE B-[place]: [employer] Jermain Gonzales [id number] Jermain Gonzales 01/13/2025 1 [employer] [facility] [id number] 1 Jermain Armand Janet [id number] Jermain Gonzales 02/05/2025 2 UNSPECIFIED REMIT PAYOR Jermain Gonzales 01/19/2025 2 [facility] ER - PLAN 1 (MEDICARE SUPPLEMENT) [id number] 1 Jermain Acuna Janet [id number] Jermain Gonzales Notes Date Note Type Note [...] ago. No trouble breathing. AMY CLEVELAND MD [address] [place] [address], [address], [place] - [facility] 01/13/2025 17:24:53 01/19/2025 text/html ROS as noted in the HPI She has a history of 3 months of left sided throat pain. She has noted a neck mass. CT neck without contrast demonstrated a 5cm left BOT mass with associated ipsilateral cystic likely necrotic adenopathy. She stopped her plavix at the last visit. AMY CLEVELAND MD [address] [place] [address], [address], [place] - [facility] 01/19/2025 11:58:29 OBGyn Episode No OBEpisode recorded.
--- OUTSIDE RECORDS SUMMARY | 2025-07-21 10:23 | XMS_ITS | Clinical Summary ---
Author Organization [facility] Address [address] [facility] [address] [place] [address] Phone Care Team Providers Care Assurance Manager Name Role Phone Jimmy Awan MD Primary Care Provider [phone] Allergies Active Allergy Reactions Criticality Noted Date [...] MEDICARE PART A & [place] [address] MEDICARE SUPPLEMENT MEDICARE PART A & B [facility] MEDICARE SUPPLEMENT MEDICARE PART A & B MEDICARE SUPPLEMENT MEDICARE PART A & B Member Subscriber Plan / Payer ( fective 2012-Present) Name:Jermain Gonzales Member ID:[id number] Relation to Subscriber:Self Name:Jermain Gonzales Subscriber ID:[id number] Payer ID:[id number] Group ID:Not on file Type:Medicare Address: [employer] [address] MEDICARE SUPPLEMENT MEDICARE PART A & B Member Subscriber Plan / Payer (Ef fective 2012-Present) Name:Calvin Gonzalesan Member ID:[id number] Relation to Subscriber:Self Name:Jermain Gonzales Subscriber ID:[id number] Payer ID:[id number] Group ID:Not on file Type:Medicare Address: [facility] [id number] [place] [address] MEDICARE SUPPLEMENT MEDICARE PART A & B [facility] MEDICARE SUPPLEMENT MEDICARE PART A & B [facility] MEDICARE SUPPLEMENT MEDICARE PART A & B Member Subscriber Plan / Payer ( fective 2012-Present) Name:Jermain Gonzales Member ID:[id number] Relation to Subscriber:Self Name:Jermain Gonzales Subscriber ID:[id number] Payer ID:[id number] Group ID:Not on file Type:Medicare Address: [employer] [address] MEDICARE SUPPLEMENT MEDICARE PART A & B MEDICARE SUPPLEMENT Care Teams Assurance Manager Relationship Specialty Start Date End Date Jimmy Awan MD [address] [place] [address] [place] [address] PCP - General Internal Medicine 07/10/21 Additional Source Comments The information contained in this document represents components of the legal health record. It is not the complete legal health record.[facility]
--- OUTSIDE RECORDS SUMMARY | 2025-07-21 10:23 | XMS_ITS | Encounter Summary ---
Author Organization [facility] Address [address] [facility] [address] [place] [address] Phone Care Team Providers Care Transistor Tester Name Role Phone Jimmy Awan MD Primary Care Provider [phone] Reason for Referral * Consultation (Elective) - Closed Specialty Diagnoses / Procedures Referred By Contac t Referred To Contact Cardiac Rehabilitation Diagnoses S/P CABG (coronary artery bypass graft) Cheryl Butts MD [address] [place] [address] Phone: tel: fax: [address] [address] Phone: tel: Referral ID Status Reason Start Date Expiration Date Visits Re quested Visits Authorized [id number] Closed 09/02/2021 09/02/2022 1 1 Encounter Details Date Type Department Care Team (Late st Contact Info) Description 09/02/[address] [facility] Department [address] [place] [address] Cheryl Butts MD [address] [place] [address] S/P CABG (coronary artery bypass graft) (Primary [...] Associated Diagnoses Order Schedule Ambulatory referral to [facility] Cardiac Rehab Outpatient Referral Routine S/P CABG (coronary artery bypass graft) Ordered: 09/02/2021 documented as of this encounter Visit Diagnoses Diagnosis S/P CABG (coronary artery bypass graft)- Primary Postsurgical aortocoronary bypass status documented in this encounter Care Teams Transistor Tester Relationship Specialty Start Date End Date Jimmy Awan MD [address] [place] [address] [place] [address] PCP - General Internal Medicine 07/10/21 documented as of this encounter Additional Source Comments The information contained in this document represents components of the legal health record. It is not the complete legal health record.[facility]
--- OUTSIDE RECORDS SUMMARY | 2025-07-21 10:23 | XMS_ITS | Clinical Summary ---
Author Organization [facility], Address [address] [facility] [address] [place] [address] Phone Care Team Providers Care Threading Machine Operator Name Role Phone Jimmy Awan MD Primary Care Provider [phone]- [phone] Allergies Active Allergy Reactions Criticality Noted Date [...] age to complete this topic Insurance Medicare [facility] Medicare [facility] Care Teams Threading Machine Operator Relationship Specialty Start Date End Date Jimmy Awan MD [address] [place] [address] [address] [place] [address] PCP - General Internal Medicine 07/28/21
--- OUTSIDE RECORDS SUMMARY | 2025-07-21 10:23 | XMS_ITS | Data Portability ---
Author Organization [facility] [employer] [place] Address [address] [facility] [place] [address] Care Team Providers Care Education Professor Name Role Phone GAURAV ROMAN Referring Provider [phone] LILIANA GREEN OTHER Assessment Encounter Date Assessment [...] ast No observ ation record ed. [email or web address] [facility] ([facility]) [address] [place], [address], 10/17/2021 14:29:22 Result Notes None recorded. Procedures Surgical History Date Name Laterality Status Provider Name and Address Organization Details Recorded Time 10/13/2021 DATA REVIEW completed Antony Hernandez MD [address] [place], [place] [address], [address], [facility] 10/13/2021 17:40:07 Imaging Results None recorded. Procedure Notes None recorded. Medical Equipment None Reported. Allergies Allergen ID Allergen Name Allergen Category Reaction Reaction Severity Criticality Documentation Date Start Date Code Code System Note Provider Name and Address Organization Details Recorded Time 1213 Product containin g penicilli n (product) medicatio n Not available Not available Not available 10/13/2021 22040 8001 SNOMED [place] [facility] 2 11:19:23 1214 doxycycli ne Not available Not available Not available Not available 10/13/2021 3640 RxNorm [facility] on [facility] 2 11:22:18 1215 Keppra medicatio n Not available Not available Not available 10/13/2021 62297 7 RxNorm [facility] on [facility] 2 11:22:28 Medications Name Sig Start [...] Updated DateTime 10/13/2021 157.48 cm 27.1 kg/m2 03179.67 g 12 /min Ciera Dumont [facility] 10/13/2021 11:18:56 Social History Question Answer Notes LastModified by Organizat ion Details LastModified Time Tobacco Smoking Status Former Smoker Ciera jenkins [facility] 10/13/2021 11:24:52 What Is Your Level Of Caffeine Consumption? Occasional Information not available 10/13/2021 What Is The Highest Grade Or Level Of School You Have Completed Or The Highest Degree You Have Received? 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 5033573 G40.209 Generalize d-onset seizures 9897695 G40.309 Acute cere brovascular insufficiency 32393643 I67.81 Health Concerns Section Related Observation LastModified by Organization Detai ls LastModified Time None Recorded Concern Status LastModified by Organization Details LastModified Time None Recorded Advance Directives Directive None Recorded Payers Insurance Date Sequence Insurance Name Policy Number Policy Jamil Covered Member ID Jamil Member ID Guarantor Name 10/17/2021 1 [place]ICARE B-[place]: [employer] Jermain Fowler Janet [id number] Jermain Gonzales 10/12/2021 2 [employer] [id number] 1 Jermain Gonzales [id number] Jermain Gonzales Notes Date Note Type Note [...] causing suspicion for seizure. Antony Hernandez MD [address] [place] [address] [place], [address], [facility] 10/13/2021 17:43:39 OBGyn Episode No OBEpisode recorded.
--- OUTSIDE RECORDS SUMMARY | 2025-07-21 10:23 | XMS_ITS | Clinical Summary ---
Author Organization [address] [place] [address] [place] [phone] Phone Care Team Providers Care Director Of Global Marketing Name Role Phone Jimmy Awan MD Primary Care Provider Allergies Active Allergy Reactions Criticality Noted Date Comments Doxycycline 08/01/2021 Famotidine 07/13/2025 Hydrocortisone Rash 03/01/2022 Levetiracetam 08/01/2021 Milk Containing [...] mcg (1,000 unit) tablet Take by mouth. Ac tive famotidine (PEPCID) 20 mg tablet Take 1 [...] for chest pain. 25 tablet 2 5 026 Active aspirin 81 mg EC tablet Take 1 tablet (81 mg total) by mouth 1 (one) time each day. 5 Active isosorbide mononitrate (IMDUR) 30 mg 24 hr tabletIndicatio ns:Coronary artery disease of [place] artery of [place] heart with stable angina pectoris (CMS/HCC V24) TAKE 1 TABLET(30 MG) BY MOUTH 1 TIME EACH DAY. DO NOT CRUSH OR CHEW 90 tablet 3 5 Active Additional Information Patient not taking.Reported on 07/13/2025 oxyCODONE (ROXICODONE) 5 mg/5 mL solution Take 7.5 mL (7.5 mg total) by mouth every 6 (six) hours if needed for severe pain. Max Daily Amount: 30 mg Active metoprolol tartrate (LOPRESSOR) 25 mg tablet Take 1 tablet (25 mg total) via g-tube 2 (two) times a day. Please crush and administer thru g tube 60 each 5 5 Active furosemide (LASIX) 20 mg tablet Take 1 tablet (20 mg total) by mouth 1 (one) time each day. 90 each 3 5 Active furosemide (LASIX) 20 mg tablet Take 1 tablet (20 mg total) by mouth 1 (one) time each day. 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 07/13/2025 Angina pectoris ([facility] V24) 03/01/2022 Overview (07/15/2024): post CABG Diabetes 1.5, managed as type 2 ([facility] V24, CM S/[facility] V28) 08/01/2021 Seizure disorder ([facility] V24, [facility] V28) 07/20 Hx of CABG 06/22/2021 [...] 6:55 PM EST): Type 2 diabetes mellitus ([facility] V24, [facility] V 28) 06/21/2021 Coronary artery disease invo lving coronary bypass graft of [place] heart without angina pectoris 10/28/2020 Assessment & [...] She reports having recent labs completed at [facility] and we will attempt to [...] a more recent lipid panel completed at [facility]; we will attempt to obtain these [...] Encounters Date Type Department Care Team Description 07/13/2025 2:00 PM EST Office Visit [facility] Card[facility] [address] [facility] 101 [place] [address] Alex Alba MD Occlusion of carotid artery, unspecified laterality (Primary Dx); Coronary artery disease involving coronary bypass graft of [place] heart without angina pectoris; Hx of CABG; FRANKLIN (dyspnea on exertion); 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 05/28/2025 8:45 AM EDT Office Visit Orthopedic Surgery - [place] 250 175 [facility] 250 [place] [phone] Misael Martin DPM Controlled type 2 diabetes with neuropathy (CMS/HCC V24, CMS/HCC V28) (Primary Dx); Amputation of fifth toe of right foot (CMS/HCC V24); Peripheral vascular disease, unspecified (CMS/HCC V24); Neuropathy; Arthritis of both feet; Onychomycosis 05/13/2025 Telephone [facility] Cardiology [facility] - [facility] 154 300 [facility] 154 [place] [address] Alex Alba MD 04/21/2025 Telephone [facility] Cardiology [facility] - [facility] 101 300 [facility] 101 [place] [address] Alex Alba MD from Last 3 Months [...] site debridement BYPASS GRAFT 09/10/2013 Left PROCEDURE: [place] AMPUTATION TOE METATARSOPHALANGEAL JOINT; COMMENT: 2nd toe CARDIAC CATHETERIZATION 07/02/2013 PROCEDURE: HISTORICAL CARDIAC CATH OTHER SURGICAL HISTORY 02/18/2013 PROCEDURE: [place] CORONARY ENDARTERCOMY OPEN ANY METHOD OTHER SURGICAL HISTORY 02/18/2013 PROCEDURE: [place] BYPASS W/VEIN FEMORAL-FEMORAL OTHER SURGICAL HISTORY 07/31/2012 PROCEDURE: HISTORY OTHER; COMMENT: Right carotid endarterectomy with patch angioplasty reconstruction CARDIAC CATHETERIZATION 05/21/2012 PROCEDURE: HISTORICAL CARDIAC CATH CHOLECYSTECTOMY PROCEDURE: HISTORICAL CHOLECYSTECTOMY Medical History Medical History Date Comments Fall 03/01/2022 DX:Fall Hematemesis DX:Hematemesis Left orbit fracture ([facility] V24, [facility] V28) DX:Left orbit fracture ([facility]) Upper GI bleed DX:Upper GI blee d Hemorrhagic shock ([facility] V 24, [facility] V28) DX:Hemorrhagic shock ([facility]) Acute kidney injury superimp osed on CKD ([facility] V24) DX:Acute kidney injury super imposed on CKD ([facility]) Hyponatremia DX:Hyponatremia Delirium DX:Delirium UTI (urinary tract infection) DX :UTI (urinary tract infection) Anemia DX:Anemia Claudication ([facility] V24) DX:Cl audication ([facility]) COPD (chronic obstructive pu lmonary disease) ([facility] V24, [facility] V28) DX:COPD (chronic o bstructive pulmonary disease) ([facility]) 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 ([facility] V 24, [facility] V28) DX: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 ([facility]) GERD (gastroesophageal reflu x disease) DX:GERD (gastroesophageal re flux disease) Hard of hearing DX:Hard of heari ng Neck strain DX:Neck strain Obesity DX:Obesity PONV (postoperative nausea a nd vomiting) DX:PONV (postoperative nause a and vomiting) Toe ulcer ([facility] V24, [facility] V28) DX:Toe ulcer ([facility]) Family History Medical History Relation Name [...] Sign Reading Time Taken Comments Blood Pressure 118/60 07/13/2025 1:55 PM EST Pulse 67 07/13/2025 1:55 PM EST Temperature - - Respiratory Rate - - Oxygen Saturation 96% 07/13/2025 1:55 PM EST Inhaled Oxygen Concentration - - Weight 62.1 kg (137 lb) 07/13/2025 1:55 PM EST Height 157.5 cm (5' 2 ) 07/13/2025 1:55 PM EST Body Mass Index 25.06 07/13/2025 1:55 PM EST Plan of Treatment Upcoming Encounters Date Type Department Care Team (Late st Contact Info) Description 08/10/2025 10:00 AM EST Office Visit Orthopedic Surgery - [place] [address] [phone] Misael Martin, CARL [address] [address] Health Maintenance Due Date Last Done Comments [...] complete this topic Insurance MEDICARE [facility] Care Teams Director Of Global Marketing Relationship Specialty Start Date End Date Jimmy Awan MD 2 [facility] [address] [address] [place] PCP - General 05/21/12
== END 2025-07-21 10:00 | disposition home or self-care (01) ==
LOC: HO.HGI 09:34
PROVIDERS: PCP Internal Medicine; Visit Provider Nurse Practitioner Family
DX: K21.9 Gastro-esophageal reflux disease without esophagitis (principal); R13.12 Dysphagia, oropharyngeal phase; C01 Malignant neoplasm of base of tongue
CPT/HCPCS: 99214

== ENCOUNTER → 2025-07-21 09:33 | Outpatient (BNVA) | payer MEDICARE, OTHER, SELFPAY | PROVIDERS: PCP Internal Medicine; Visit Provider Nurse Practitioner Family | DX: K21.9 Gastro-esophageal reflux disease without esophagitis (principal); R13.12 Dysphagia, oropharyngeal phase; C01 Malignant neoplasm of base of tongue; Z93.1 Gastrostomy status | CPT/HCPCS: 99212 ==

== ENCOUNTER 2025-07-31 16:06 | Outpatient (REF) | payer MEDICARE, OTHER, SELFPAY ==
--- NOTE | ~2025-07-31 | CT_ITS ---
EXAMINATION: CT CHEST WITHOUT CONTRAST CLINICAL INFORMATION: R91.1 - Solitary pulmonary nodule COMPARISON: 04/16/2025 TECHNIQUE: Multidetector volumetric CT imaging of the chest was done. Axial MIP volume rendering provided. Sagittal and coronal reformatted images were obtained. This CT examination was performed using dose optimization techniques as appropriate, variously including the following: *Automated exposure control *Adjustment of mA and/or kV according to patient size (this includes techniques or standardized protocols for targeted exams where dose is matched to indication/reason for exam; i.e. extremities or head) *Use of iterative reconstruction technique FINDINGS: LUNGS: Again seen is a focal density in the superior segment left lower lobe with tenting of the adjacent major fissure. On coronal image 83/123, the density measures 13 x 24 mm, unchanged. The density is mixed solid and groundglass. The solid component measures 4 x 5 mm. Mixed solid and groundglass nodules in the right upper lobe has resolved since the prior study. Nodular density in the medial segment right middle lobe has resolved. There is a stable 3 mm calcified nodule in the lateral segment right middle lobe. No new nodules or densities are present. MEDIASTINUM: Unremarkable CORONARY ARTERY CALCIFICATION: Dense PLEURA: There is no pleural effusion. No pleural mass or thickening. AXILLA: No lymphadenopathy. UPPER ABDOMEN: There are surgical clips related to cholecystectomy. There is a percutaneous G-tube. There are moderate to severe vascular calcifications. OSSEOUS STRUCTURES: There are mediastinal wires as well as anterior plates with screws.. There are mild degenerative changes in the thoracic spine. Sclerotic lesion within T12 measures 1192 Hounsfield units which is most consistent with a benign bone island. CT/CT chest wo IV con IMPRESSION: There is persistent solid and groundglass opacity in the superior segment of the left lower lobe. There has been interval resolution of other mixed groundglass and solid nodular densities. Given that other densities have resolved since the prior study 3.5 months ago, consider an additional follow-up CT in 3-6 months. Alternatively, Fleischner Society recommends annual follow up for part solid nodules with a solid component less than 6 mm. Fleischner guidelines were followed. Electronically signed by: Quentin Sherwood MD 07/31/2025 04:53 PM EST
--- OUTSIDE RECORDS SUMMARY | 2025-07-31 20:39 | XMS_ITS | Data Portability ---
Author Organization [place] [facility], Allergy Address [address] [address] Care Team Providers Care Application Security Architect Name Role Phone ABEL, GAURAV Primary Care [...] PET/CT Imagin g Access ion Number : [id number] Patien t Name: Jermain Gonzales Shawna l Record Number : [id number] Date of : 1940 Date of Exam: 2024 Referr ing Physic erica: Leah ta, Amy [facility] [place] 100 [facility] [address] [place] [address] Exam: PT Skull Base to Mid Thigh CPT 04430 Room Descri ption: Carpenter SiemBi o Pt4 PT Skull Base to Mid Thigh CPT 04963 Histor y: Initia l stagin g of invasi ve squamo us cell carcin florencio of the left flat ironer ior aspect of the tongue Compar judith: [...] inject ion was 97 mg/dL. Findin gs: Finance Controller al Refere nce Values : Ascend ing aortic blood pool: SUV mean 2.1, SUV max 2.7. Right hepati c lobe: SUV mean 2.2, SUV max 3.4. Head/n josselyn: Irregu lar shaped lesion noted at the left flat ironer ior aspect of the tongue measur ing [...] avid irregu lar shaped lesion at the flat ironer ior left aspect of the tongue is [...] ly Signed By: Jesus Chavez MD reppsteiner [facility] ([facility]) [address] [place], [address], 02/23/2025 16:55:00 Result Notes Documentation Provider Name and Address Organization Details Recorded Time Pet-ct, Skull Base To Mid-thigh Scan : [facility] PET/CT Imaging Accession Number: [id number] Patient Name: Jermain Gonzales Date of : 1940 Date of Exam: 02-08-2025 Referring Physician: Amy [facility] [address] [address] Exam: PT Skull Base to Mid Thigh CPT 76185 Room Description: [facility] Pt4 PT Skull Base to Mid Thigh CPT 88677 History: Initial staging of invasive squamous cell [...] findings. 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 - [facility] [place] 15:39:33 Chronic sore throat 900766884 Active 2024 AMY Chacko MD [address] [place] [address], [place], [address], [facility] - [facility] [place] 15:39:42 Oropharyngeal dysphagia 67821344 Active 2024 AMY Chacko MD [address] [place] [address], [place], [address], [facility] - [facility] [place] 15:39:47 Malignant neoplasm of base of tongue 586948454 Active 2024 AMY Chacko MD [address] [place] [address], [place], [phone], [facility] - [facility] [place] 11:43:43 Problem Notes None recorded. Procedures Surgical History Date Name Laterality Status Provider Name and Address Organization Details Recorded Time Biopsy Anterior Tongue completed AMY CLEVELAND MD [address], [phone], [facility] 01/19/2025 11:57:05 FFL_RE completed AMY CLEVELAND MD [address] [place] [address], [phone], [facility] 01/13/2025 15:55:18 Imaging Results None recorded. [...] Updated DateTime 01/13/2025 157.48 cm 26.9 kg/m2 37434.08 g Ras Fall [facility] 01/13/2025 15:33:13 Date Recorded Body height Body mass index (BMI) Body weight Provider Name and Address Organization Details Last Updated DateTime 01/19/2025 157.48 cm 26.9 kg/m2 91043.08 g Ras Fall [facility] 01/19/2025 11:40:07 Social History Question Answer Notes LastModified by [employer] Details LastModified Time Tobacco Smoking Status Never Smoker Ras jenkins [facility] 01/13/2025 15:33:50 What Type Of Wireless Telegrapher Do You Use? None Information not available 01/13/2025 Do You Have Any Pets? Yes Information not available 01/13/2025 Are You Passively Exposed To Smoke? No Information not available 01/13/2025 Are There Any Smokers In Your House? No Information not available 01/13/2025 Sex: Unknown Functional Status Question Answer Note LastModified by [employer] Details LastModified Time Do you use any [...] 15:24:34 Medical History Condition Response Allergies/Hayfever Y Heart Problems Y Anxiety N Thyroid Problems N Developmental Delay N Glaucoma Y Anemia Y Diabetes Y Food Allergy Y Hearing Loss Y Dementia N Asthma Y GERD/Reflux Y Headaches Y Fibromyalgia N Speech Delay N Kidney Disease Y Gynecological HistoryNo gynecological history recorded. 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 Chronic sore throat 2754 [address]643 J31.2 2579 Likely due to the tumor. I discussed this will not improve until the likely cancer is treated. Oropharyng eal dysphagia 78953193 R13.12 8208 Likely due to the tumor. I discussed this will not improve until the likely cancer is treated. 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 Will refer to [facility] if this turns out to be cancer. Can resume plavix and asa tomorrow. Will call with pathology. 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 Chronic sore throat 2754 [address]31 J31.2 2579 Likely due to the tumor. I discussed this will not improve until the likely cancer is treated. Oropharyng eal dysphagia 92082929 R13.12 8208 Likely due to the tumor. [...] ID Guarantor Name 01/19/2025 1 MEDICARE B-[place]: [employer] Jermain Gonzales [id number] Jermain Gonzales 01/13/2025 1 [facility] [employer] [id number] 1 Jermain Armand Janet [id number] Jermain Gonzales 02/05/2025 2 UNSPECIFIED REMIT PAYOR Jermain Gonzales 01/19/2025 2 [facility] - PLAN 1 (MEDICARE SUPPLEMENT) [id number] 1 Jermain Acuna Janet [id number] Jermain Gonzales Notes Date Note Type Note [...] ago. No trouble breathing. AMY CLEVELAND MD [address] [place] [address], [phone], [place] - [facility] 01/13/2025 17:24:53 01/19/2025 text/html ROS as noted in the HPI She has a history of 3 months of left sided throat pain. She has noted a neck mass. CT neck without contrast demonstrated a 5cm left BOT mass with associated ipsilateral cystic likely necrotic adenopathy. She stopped her plavix at the last visit. MAY CLEVELAND MD [address] [place] [address], [phone], [place] [facility] 01/19/2025 11:58:29 OBGyn Episode No OBEpisode recorded.
--- OUTSIDE RECORDS SUMMARY | 2025-07-31 20:39 | XMS_ITS | Clinical Summary ---
Author Organization [address] [place] [address] [place] [phone] Phone Care Team Providers Care Roll Builder Name Role Phone Jimmy Awan MD Primary [...] 24 hr tabletIndicatio ns:Coronary artery disease of [place] artery of [place] heart with stable angina pectoris (CMS/HCC V24) [...] (SCCIS) of oral cavity 07/13/2025 Angina pectoris 03/01/2022 Overview (07/15/2024): post CABG [...] 2 diabetes mellitus 06/21/2021 Coronary artery disease invo lving coronary bypass graft of [place] heart without angina pectoris 10/28/2020 Assessment & [...] having recent labs completed at [facility] and we will attempt to obtain these for review. Assessment & Plan (09/12/2024 6:55 PM EST): Blood pressure is favorable on current medical therapy; continue metoprolol addition to newly added isosorbide. We will attempt to get more with her recent labs from her PCPs office for review. Peripheral vascular disease 10/28/2020 Assessment & Plan (2024 12:12 PM EDT): The patient will continue to follow with vascular surgery as recommended. Assessment & Plan (09/12/2024 6:55 PM EST): The patient will continue to follow with vascular surgery as recommended. Hyperlipidemia 10/28/2020 Assessment & Plan (2024 12:12 PM EDT): The patient believes that she had a more recent lipid panel completed at [facility]; we will attempt to obtain these for [...] Description 07/13/2025 2:00 PM EST Office Visit [facility] Card[facility] [address] [facility] [address] [place] [phone] Alex Alba MD Occlusion of carotid artery, unspecified laterality (Primary Dx); Coronary artery disease involving coronary bypass graft of [place] heart without angina pectoris; Hx of CABG; FRANKLIN (dyspnea on exertion); 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 05/28/2025 8:45 AM EDT Office Visit Orthopedic Surgery - [place] 250 175 [facility] 250 [place] [phone] Misael Martin DPM Controlled type 2 diabetes with neuropathy (CMS/HCC V24, CMS/HCC V28) (Primary Dx); Amputation of fifth toe of right foot (CMS/HCC V24); Peripheral vascular disease, unspecified (CMS/HCC V24); Neuropathy; Arthritis of both feet; Onychomycosis 05/13/2025 Telephone [facility] [address] [facility] 154 [place] [address] Alex Alba MD from Last 3 Months [...] site debridement BYPASS GRAFT 09/10/2013 Left PROCEDURE: [place] AMPUTATION TOE METATARSOPHALANGEAL JOINT; COMMENT: 2nd toe CARDIAC CATHETERIZATION 07/02/2013 PROCEDURE: HISTORICAL CARDIAC CATH OTHER SURGICAL HISTORY 02/18/2013 PROCEDURE: [place] CORONARY ENDARTERCOMY OPEN ANY METHOD OTHER SURGICAL HISTORY 02/18/2013 PROCEDURE: [place] BYPASS W/VEIN FEMORAL-FEMORAL OTHER SURGICAL HISTORY 07/31/2012 PROCEDURE: HISTORY OTHER; COMMENT: Right carotid endarterectomy with patch angioplasty reconstruction CARDIAC CATHETERIZATION 05/21/2012 PROCEDURE: HISTORICAL CARDIAC CATH CHOLECYSTECTOMY PROCEDURE: HISTORICAL CHOLECYSTECTOMY Medical History Medical History Date Comments Fall 03/01/2022 DX:Fall Hematemesis DX:Hematemesis Left orbit fracture ([facility] V24, [facility] V28) DX:Left orbit fracture ([facility]) Upper GI bleed DX:Upper GI blee d Hemorrhagic shock ([facility] V 24, [facility] V28) DX:Hemorrhagic shock ([facility]) Acute kidney injury superimp osed on CKD ([facility] V24) DX:Acute kidney injury super imposed on CKD ([facility]) Hyponatremia DX:Hyponatremia Delirium DX:Delirium UTI (urinary tract infection) DX :UTI (urinary tract infection) Anemia DX:Anemia Claudication ([facility] V24) DX:Cl audication ([facility]) COPD (chronic obstructive pu lmonary disease) ([facility] V24, [facility] V28) DX:COPD (chronic o bstructive pulmonary disease) ([facility]) 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 ([facility] V 24, [facility] V28) DX: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 ([facility]) GERD (gastroesophageal reflu x disease) DX:GERD (gastroesophageal re flux disease) Hard of hearing DX:Hard of heari ng Neck strain DX:Neck strain Obesity DX:Obesity PONV (postoperative nausea a nd vomiting) DX:PONV (postoperative nause a and vomiting) Toe ulcer ([facility] V24, [facility] V28) DX:Toe ulcer ([facility]) Family History Medical History Relation [...] Upcoming Encounters Date Type Department Care Team ([facility] st Contact Info) Description 08/10/2025 10:00 AM EST Office Visit Orthopedic Surgery - [place] 250 175 [facility] 250 [place] [phone] Misael Martin, CARL 175 [facility] [address] [place] [address] Health Maintenance Due Date Last Done Comments [...] Insurance MEDICARE [facility] [address] [place] [address] Care Teams Roll Builder Relationship Specialty Start Date End Date Jimmy Awan MD [address] [place] [address] [address] [place] Ugarte PCP - General 05/21/12
--- OUTSIDE RECORDS SUMMARY | 2025-07-31 20:39 | XMS_ITS | Data Portability ---
Author Organization [facility] [employer] Address [address] [place] [address] Care Team Providers Care Car Runner Name Role Phone GAURAV ROMAN Referring Provider [...] ast No observ ation record ed. [email or web address] [facility] ([facility]) [address] [place], [address], 10/17/2021 14:29:22 Result Notes None recorded. Procedures Surgical History Date Name Laterality Status Provider Name and Address Organization Details Recorded Time 10/13/2021 DATA REVIEW completed Antony Hernandez MD [address] [place], [place] [address], [address], [facility] 10/13/2021 17:40:07 Imaging Results None recorded. Procedure Notes None recorded. Medical Equipment None Reported. Allergies Allergen ID Allergen Name Allergen Category Reaction Reaction Severity Criticality Documentation Date Start Date Code Code System Note Provider Name and Address Organization Details Recorded Time 1213 Product containin g penicilli n (product) medicatio n Not available Not available Not available 10/13/2021 88093 8001 SN[facility]ED [facility] 2 11:19:23 1214 doxycycli ne Not available Not available Not available Not available 10/13/2021 3640 RxNorm [facility] on [facility] 2 11:22:18 1215 Keppra medicatio n Not available Not available Not available 10/13/2021 48043 7 RxNorm [facility] on [facility] 2 11:22:28 Medications Name Sig Start [...] Updated DateTime 10/13/2021 157.48 cm 27.1 kg/m2 56067.67 g 12 /min Ciera Dumont [facility] 10/13/2021 11:18:56 Social History Question Answer Notes LastModified by Organizat ion Details LastModified Time Tobacco Smoking Status Former Smoker Ciera jenkins [facility] 10/13/2021 11:24:52 What Is Your Level Of Caffeine Consumption? Occasional Information not available 10/13/2021 What Is The Highest Grade Or Level Of School You Have Completed Or The Highest Degree You Have Received? [id number] Information not available 10/13/2021 Which Of Your [...] Codes Diagnosis Note 4064 Antony Hernandez MD [facility] [address] [place] [address] [place] [address] 10/13/2021 10:47:12 10/17/2021 07:47:44 Complex partial seizure with impairment of consciousness 1946620 G40.209 Generalize d-onset seizures 0617512 G40.309 Acute cere brovascular insufficiency 18032828 I67.81 Health Concerns Section Related Observation LastModified by Organization Detai ls LastModified Time None Recorded Concern Status LastModified by Organization Details LastModified Time None Recorded Advance Directives Directive None Recorded Payers Insurance Date Sequence Insurance Name Policy Number Policy Jamil Covered Member ID Jamil Member ID Guarantor Name 10/17/2021 1 [place]IC[place] [employer] Jermain Fowler Janet [id number] Jermain Gonzales 10/12/2021 2 [place] [id number] Jermain Gonzales [id number] Jermain Gonzales Notes Date Note Type Note [...] causing suspicion for seizure. Antony Hernandez MD [address] [place] [address] [place], [address], [facility] 10/13/2021 17:43:39 OBGyn Episode No OBEpisode recorded.
--- OUTSIDE RECORDS SUMMARY | 2025-07-31 20:39 | XMS_ITS | Encounter Summary ---
Author Organization [facility] Address [address] [facility] [address] [place] [address] Phone Care Team Providers Care Motor Bus Driver Name Role Phone Jimmy Awan MD Primary Care Provider [phone] [phone] Reason for Referral * Consultation (Elective) - Closed Specialty Diagnoses / Procedures Referred By Contac t Referred To Contact Cardiac Rehabilitation Diagnoses S/P CABG (coronary artery bypass graft) Cheryl Butts MD [address] [place] [address] Phone: tel: fax: [address] [address] Phone: tel: Referral ID Status Reason Start Date Expiration Date Visits Re quested Visits Authorized [id number] Closed 09/02/2021 09/02/2022 1 1 Encounter Details Date Type Department Care Team (Late st Contact Info) Description 09/02/2021 Transcribe Orders [facility] Department [address] [place] [address] Cheryl Butts MD [address] [place] [address] S/P CABG (coronary artery bypass graft) (Primary [...] status documented in this encounter Care Teams Motor Bus Driver Relationship Specialty Start Date End Date Jimmy Awan MD [address] [place] [address] [place] [address] PCP - General Internal Medicine 07/10/21 documented as of this encounter Additional Source Comments The information contained in this document represents components of the legal health record. It is not the complete legal health record.[facility]
--- OUTSIDE RECORDS SUMMARY | 2025-07-31 20:39 | XMS_ITS | Clinical Summary ---
Author Organization [facility] Address [address] [facility] [address] [place] [address] Phone Care Team Providers Care Belt Tender Name Role Phone Jimmy Awan MD Primary Care Provider [phone] [phone] Allergies Active Allergy Reactions Criticality Noted Date [...] file Insurance MEDICARE PART A & [place] [address] [place] [address] MEDICARE SUPPLEMENT MEDICARE PART A & B [facility] MEDICARE SUPPLEMENT MEDICARE PART A & B MEDICARE SUPPLEMENT MEDICARE PART A & B Member Subscriber Plan / Payer ( fective 2012-Present) Name:Jermain Gonzales Member ID:[id number] Relation to Subscriber:Self Name:Jermain Gonzales Subscriber ID:[id number] Payer ID:[id number] Group ID:Not on file Type:Medicare Address: [employer] [address] MEDICARE SUPPLEMENT MEDICARE PART A & B Member Subscriber Plan / Payer (Ef fective 2012-Present) Name:Calvin Gonzalesan Member ID:[id number] Relation to Subscriber:Self Name:Jermain Gonzales Subscriber ID:[id number] Payer ID:[id number] Group ID:Not on file Type:Medicare [facility]: [facility] [id number] [place] [address] MEDICARE SUPPLEMENT MEDICARE PART A & B [facility] MEDICARE SUPPLEMENT MEDICARE PART A & B [facility] MEDICARE SUPPLEMENT MEDICARE PART A & B Member Subscriber Plan / Payer ( fective 2012-Present) Name:Jermain Gonzales Member ID:[id number] Relation to Subscriber:Self Name:Jermain Gonzales Subscriber ID:[id number] Payer ID:[id number] Group ID:Not on file Type:Medicare Address: [employer] [address] MEDICARE SUPPLEMENT MEDICARE PART A & B MEDICARE SUPPLEMENT Care Teams Belt Tender Relationship Specialty Start Date End Date Jimmy Awan MD [address] [place] [address] [place] [address] PCP - General Internal Medicine 07/10/21 Additional Source Comments The information contained in this document represents components of the legal health record. It is not the complete legal health record.[facility]
== END 2025-07-31 16:07 | disposition home or self-care (01) ==
LOC: HO.CT 16:06
PROVIDERS: PCP Internal Medicine; Visit Provider Hospitalist
DX: R91.1 Solitary pulmonary nodule (principal)
CPT/HCPCS: 71250

== ENCOUNTER → 2025-07-31 16:09 | Outpatient (BNV) | payer MEDICARE, OTHER, SELFPAY | PROVIDERS: PCP Internal Medicine; Visit Provider Radiology Diagnostic Radiology | DX: R91.8 Other nonspecific abnormal finding of lung field (principal) | CPT/HCPCS: 71250 ==

== ENCOUNTER 2025-08-18 07:09 | Outpatient (REF) | payer MEDICARE, OTHER, SELFPAY ==
[2025-08-18 08:02] LABS: Hematocrit 34.9 % (37.0-47.0); Hemoglobin 11.1 g/dl (12.0-16.0); Mean Corpuscular HGB Conc 31.8 g/dl (31.0-35.0); Mean Corpuscular Hemoglobin 28.2 pg (27.0-33.0); Mean Corpuscular Volume 88.8 fL (80.0-98.0); NRBC Abs Auto 0.000 X10*3/uL (0.0-0.012); NRBC Pct Auto 0.0 /100WBC (0.0-0.2); Platelet Count 296 X10*3/uL (160-400); Red Blood Count 3.93 X10*6/uL (4.20-5.50); White Blood Count 5.5 X10*3/uL (4.8-10.8)
[2025-08-18 08:52] LABS: Appearance Urine Cloudy; Glucose Urine UA Negative (Negative); PH 7.0 (5.0-9.0); Specific Gravity - Urine 1.015 (1.005-1.025); UMIC TRIGGER UA YES
--- OUTSIDE RECORDS SUMMARY | 2025-08-18 08:53 | XMS_ITS | Clinical Summary ---
Author Organization [facility] Address [address] [facility] [address] [place] [address] Phone Care Team Providers Care Upkeep Worker Name Role Phone Jimmy Awan MD Primary Care Provider [phone] [phone] Allergies Active Allergy Reactions Criticality Noted Date [...] file Insurance MEDICARE PART A [place] [address] [place] [address] MEDICARE SUPPLEMENT MEDICARE PART A & B [facility] MEDICARE SUPPLEMENT MEDICARE PART A & B MEDICARE SUPPLEMENT MEDICARE PART A & B Member Subscriber Plan / Payer ( fective 2012-Present) Name:Jermain Gonzales Member ID:[id number] Relation to Subscriber:Self Name:Jermain Gonzales Subscriber ID:[id number] Payer ID:[id number] Group ID:Not on file Type:Medicare Address: [employer] [address] MEDICARE SUPPLEMENT MEDICARE PART A & B Member Subscriber Plan / Payer (Ef fective 2012-Present) Name:Calvin Gonzalesan Member ID:[id number] Relation to Subscriber:Self Name:Jermain Gonzales Subscriber ID:[id number] Payer ID:[id number] Group ID:Not on file Type:Medicare Address: [facility] [phone] [place] [address] MEDICARE SUPPLEMENT MEDICARE PART A & B [facility] MEDICARE SUPPLEMENT MEDICARE PART A & B [facility] MEDICARE SUPPLEMENT MEDICARE PART A & B Member Subscriber Plan / Payer ( fective 2012-Present) Name:Jermain Gonzales Member ID:[id number] Relation to Subscriber:Self Name:Jermain Gonzales Subscriber ID:[id number] Payer ID:[id number] Group ID:Not on file Type:Medicare Address: [employer] [address] MEDICARE SUPPLEMENT MEDICARE PART A & B MEDICARE SUPPLEMENT Care Teams Upkeep Worker Relationship Specialty Start Date End Date Jimmy Awan MD [address] [place] [address] [place] [address] PCP - General Internal Medicine 07/10/21 Additional Source Comments The information contained in this document represents components of the legal health record. It is not the complete legal health record.[facility]
--- OUTSIDE RECORDS SUMMARY | 2025-08-18 08:53 | XMS_ITS | Clinical Summary ---
Author Organization [address] [place] [address] [place] [address] Phone Care Team Providers Care Auto Polisher Name Role Phone Jimmy Awna MD Primary Care Provider Allergies Active Allergy [...] 24 hr tabletIndicatio ns:Coronary artery disease of [place] artery of [place] heart with stable angina pectoris (CMS/HCC V24) [...] Take 1 tablet (20 mg total) by mouth. M W F only Active furosemide (LASIX) 20 mg tablet Take 1 tablet (20 mg total) by mouth 1 (one) time each day. 90 each 3 025 Discontin ued(Dose adjustmen t) Active Problems Problem Noted Date Diagnosed Date [...] disease invo lving coronary bypass graft of [place] heart without angina pectoris 10/28/2020 Assessment & [...] She reports having recent labs completed at [facility] and we will attempt to obtain [...] a more recent lipid panel completed at [facility]; we will attempt to obtain these [...] Encounters Date Type Department Care Team Description 08/10/2025 Telephone [facility] Cardiology [facility] [address] [facility] [address] [place] [phone] Alex Alba MD 07/13/2025 2:00 PM EST Office Visit [facility] Cardiology [facility] [address] [place] [phone] Alex Alba MD Occlusion of carotid artery, unspecified laterality (Primary Dx); Coronary artery disease involving coronary bypass graft of [place] heart without angina pectoris; Hx of CABG; FRANKLIN (dyspnea on exertion); 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 05/28/2025 8:45 AM EDT Office Visit [facility] - [place] [address] [facility] [address] [place] [phone] Misael Martin DPM Controlled type 2 diabetes [...] site debridement BYPASS GRAFT 09/10/2013 Left PROCEDURE: MI AMPUTATION TOE METATARSOPHALANGEAL JOINT; COMMENT: 2nd toe CARDIAC CATHETERIZATION 07/02/2013 PROCEDURE: HISTORICAL CARDIAC CATH OTHER SURGICAL HISTORY 02/18/2013 PROCEDURE: MI CORONARY ENDARTERCOMY OPEN ANY METHOD OTHER SURGICAL HISTORY 02/18/2013 PROCEDURE: MI BYPASS W/VEIN FEMORAL-FEMORAL OTHER SURGICAL HISTORY 07/31/2012 PROCEDURE: HISTORY OTHER; COMMENT: Right carotid endarterectomy with patch angioplasty reconstruction CARDIAC CATHETERIZATION 05/21/2012 PROCEDURE: HISTORICAL CARDIAC CATH CHOLECYSTECTOMY PROCEDURE: HISTORICAL CHOLECYSTECTOMY Medical History Medical History Date Comments Fall 03/01/2022 DX:Fall Hematemesis DX:Hematemesis Left orbit fracture ([facility] V24, [facility] V28) DX:Left orbit fracture ([facility]) Upper GI bleed DX:Upper GI blee d Hemorrhagic shock ([facility] V 24, [facility] V28) DX:Hemorrhagic shock ([facility]) Acute kidney injury superimp osed on CKD ([facility] V24) DX:Acute kidney injury super imposed on CKD ([facility]) Hyponatremia DX:Hyponatremia Delirium DX:Delirium UTI (urinary tract infection) DX :UTI (urinary tract infection) Anemia DX:Anemia Claudication ([facility] V24) DX:Cl audication ([facility]) COPD (chronic obstructive pu lmonary disease) ([facility] V24, [facility] V28) DX:COPD (chronic o bstructive pulmonary disease) ([facility]) 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 ([facility] V 24, [facility] V28) DX: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 ([facility]) GERD (gastroesophageal reflu x disease) DX:GERD (gastroesophageal re flux disease) Hard of hearing DX:Hard of heari ng Neck strain DX:Neck strain Obesity DX:Obesity PONV (postoperative nausea a nd vomiting) DX:PONV (postoperative nause a and vomiting) Toe ulcer ([facility] V24, [facility] V28) DX:Toe ulcer ([facility]) Family History Medical History Relation [...] Care Team (Late st Contact Info) Description 10/28/2025 9:45 AM EDT Office Visit [facility] - [place] [address] [facility] [address] [place] [phone] Misael Martin, CARL [address] [address] [place] [address] Health Maintenance Due Date Last Done Comments [...] age to complete this topic Insurance MEDICARE [facility] [address] [place] [address] Care Teams Auto Polisher Relationship Specialty Start Date End Date Jimmy Awan MD [address] [place] [address] [address] ADRI Ugarte PCP - General 05/21/12
--- OUTSIDE RECORDS SUMMARY | 2025-08-18 08:53 | XMS_ITS | Encounter Summary ---
Author Organization [facility] Address [address] [facility] [address] [place] [address] Phone Care Team Providers Care Charter Driver Name Role Phone Jimmy Awan MD Primary Care Provider [phone] [phone] Reason for Referral * Consultation (Elective) - Closed Specialty Diagnoses / Procedures Referred By Contac t Referred To Contact Cardiac Rehabilitation Diagnoses S/P CABG (coronary artery bypass graft) Cheryl Butts MD [address] [place] [address] Phone: tel: fax: [address] [address] Phone: tel: Referral ID Status Reason Start Date Expiration Date Visits Re quested Visits Authorized [id number] Closed 09/02/2021 09/02/2022 1 1 Encounter Details Date Type Department Care Team (Late st Contact Info) Description 09/02/2021 Transcribe Orders [facility] Department [address] [place] [address] Cheryl Butts MD [address] [place] [address] S/P CABG (coronary artery bypass graft) (Primary [...] Associated Diagnoses Order Schedule Ambulatory referral to [facility] Cardiac Rehab Outpatient Referral Routine S/P CABG (coronary artery bypass graft) Ordered: 09/02/2021 documented as of this encounter Visit Diagnoses Diagnosis S/P CABG (coronary artery bypass graft)- Primary Postsurgical aortocoronary bypass status documented in this encounter Care Teams Charter Driver Relationship Specialty Start Date End Date Jimmy Awan MD [address] [place] [address] [place] [address] PCP - General Internal Medicine 07/10/21 documented as of this encounter Additional Source Comments The information contained in this document represents components of the legal health record. It is not the complete legal health record.[facility]
--- OUTSIDE RECORDS SUMMARY | 2025-08-18 08:53 | XMS_ITS | Clinical Summary ---
Author Organization [facility], Address [address] [facility] [address] [place] [address] Phone Care Team Providers Care Assistant Chief Engineer Name Role Phone Jimmy Awan MD Primary Care Provider [phone] Allergies Active Allergy Reactions Criticality Noted Date [...] age to complete this topic Insurance Medicare [facility] Medicare [facility] Care Teams Assistant Chief Engineer Relationship Specialty Start Date End Date Jimmy Awan MD [address] [place] [address] [address] [place] [address] PCP - General Internal Medicine 07/28/21
[2025-08-18 09:15] LABS: Anion Gap 14 (12-20); Blood Urea Nitrogen 43 mg/dL (9-16); Calcium 9.1 mg/dL (8.4-10.2); Carbon Dioxide 31 mmol/L (22-29); Chloride 101 mmol/L (96-108); Estimated Glomerular Filt Rate 44; Potassium 4.6 mmol/L (3.3-5.1); Sodium 141 mmol/L (135-145)
[2025-08-18 10:01] LABS: Total Protein Urine Random 11 mg/dL (<12)
[2025-08-18 10:47] LABS: Parathyroid Hormone Intact 103.6 pg/mL (8.7-77.1)
== END 2025-08-18 07:10 ==
LOC: HO.LAB 07:09
PROVIDERS: PCP Internal Medicine; Visit Provider Internal Medicine Hypertension Specialist
DX: N18.32 Chronic kidney disease, stage 3b (principal)
CPT/HCPCS: 36415; 80048; 81001; 82570; 83970; 84156; 85027